=== PATIENT | female | born 1940 | race Caucasian/White ===

== ENCOUNTER 2020-03-10 11:33 | Outpatient (RCR) | payer MEDICARE, SELFPAY ==
[2016-02-23 05:53] VITALS: BMI 30.2
== END 2020-03-10 23:59 ==
LOC: IMMUN 11:33
PROVIDERS: PCP Internal Medicine; Visit Provider Family Medicine
DX: Z23 Encounter for immunization (principal)
CPT/HCPCS: 0011A; 0012A

== ENCOUNTER 2020-05-30 10:34 | Emergency (ER) | payer MEDICARE, SELFPAY ==
[2020-05-30 10:35] VITALS: BP 151/74; PULSE 58; RESP 16; TEMP 36.6; O2SAT 97; BMI 30.2
--- NOTE | 2020-05-30 10:45 | CT_ITS ---
STUDY: CT CERVICAL SPINE WITHOUT CONTRAST REASON FOR EXAM: Female, 79 years old. Head injury due to a fall RADIATION DOSAGE (If Supplied By Facility): CTDIvol = ( 17.49 ) mGy, DLP = ( 343.95 ) mGycm TECHNIQUE: High resolution transaxial imaging was performed without contrast material. Sagittal and coronal images were reconstructed. Individualized dose optimization techniques were used for this CT. COMPARISON: None FINDINGS: Normal craniovertebral junction. Normal anterior atlantoaxial articulation. Normal odontoid process. There is straightening of the normal cervical lordosis. Normal vertebral bodies and posterior osseous elements. C2-3: Facet joint osteoarthritis and hypertrophy worse on the left side. No significant narrowing is seen. C3-4: Facet joint hypertrophy and osteoarthritis worse on the right side. Mild to moderate degree of right neural foraminal stenosis. C4-5: Facet joint osteoarthritis and hypertrophy more prominent on the left side. Marked degree of left neural foraminal stenosis. C5-6: Moderate degree of disc space narrowing. Spondylosis. Uncovertebral arthrosis. Bilateral neural foraminal stenosis worse on the right side. C6-7: Moderate degree of disc space narrowing. Spondylosis. Uncovertebral arthrosis. Mild degree of bilateral neural foraminal stenosis. C7-T1: Normal endplates. Normal disc height and morphology. Normal central canal and intervertebral neuroforamina. Atherosclerotic calcification of the carotid bifurcations. CT/Spine Cervical without Contras IMPRESSION: Multilevel degenerative changes, as described above. Electronically Signed: Harlan Valenzuela MD at 11:41 EDT , Service support ,
--- NOTE | 2020-05-30 10:45 | CT_ITS ---
STUDY: CT FACIAL BONES WITHOUT CONTRAST REASON FOR EXAM: Female, 79 years old. Facial injury following a fall. RADIATION DOSAGE (If Supplied By Facility): CTDIvol = ( 29.38 ) mGy, DLP = ( 525.42 ) mGycm TECHNIQUE: The patient was scanned in a multi detector CT scanner. Sagittal and coronal images were reconstructed. Individualized dose optimization techniques were used for this CT. COMPARISON: None. FINDINGS: Normal soft tissue structures. Normal orbital ibrahim and orbital contents. Normal nasal bones and anterior nasal spine. Normal facial bones. There is no demonstrated fracture. Normal visualized paranasal sinuses. CT/Sinus/Facial Bone IMPRESSION: Normal unenhanced CT of the facial bones. Electronically Signed: Harlan Valenzuela MD at 11:39 EDT , Service support ,
--- NOTE | 2020-05-30 10:45 | CT_ITS ---
STUDY: CT BRAIN WITHOUT CONTRAST REASON FOR EXAM: Female, 79 years old. Head injury. The patient fell down the steps 2 days ago. Left periorbital swelling. RADIATION DOSAGE (If Supplied By Facility): CTDIvol = ( 44.99 ) mGy, DLP = ( 728.62 ) mGycm TECHNIQUE: Transaxial CT imaging of the brain was performed without administration of intravenous contrast material. Individualized dose optimization techniques were used for this CT. COMPARISON: None FINDINGS: Normal soft tissue structures. Normal calvarium. There is mild cerebral atrophy with widening of the extra-axial spaces and ventricular dilatation. There are areas of decreased attenuation within the white matter tracts of the supratentorial brain, consistent with microvascular disease changes. Normal basal ganglia and thalami. Normal brainstem. There is mild cerebellar atrophy. There is no intracranial hemorrhage. There are no findings of an acute ischemic infarction. Normal visualized paranasal sinuses. CT/Brain/Head without Contrast IMPRESSION: Chronic involutional changes of the brain. Electronically Signed: Harlan Valenzuela MD at 11:38 EDT , Service support ,
--- NOTE | 2020-05-30 10:51 | ED.VIS.GEN ---
History of Present Illness Chief Complaint: Head Injury Informant: Patient Onset: Days - 2 Narrative: Patient sent in from ophthalmology office evaluation for fall with head trauma occurring 2 days ago. I spoke with gambling dealer prior to her arrival. Patient went to eye doctor for new glasses and has bruising to left eye. Reports ophthalmology evaluation was normal, he did not dilate the eyes, patient denies any loss of vision or shading of vision. Reports mild headache symptoms no nausea or vomiting. Using Tylenol. Reports mechanical fall while sleeping outside the home however did hit her head on concrete. Denies loss of consciousness. Broke her glasses. No anticoagulation medications. No neck or back pain. No extremity pain, states mild abrasion left knee. Denies chest or abdominal pain. Prior similar symptoms: No Past Medical History - Allergies and Home Meds Allergies/Adverse Reactions: Allergies amitriptyline Allergy (Verified 05/30/20 10:35) Unknown codeine Allergy (Verified 05/30/20 10:35) Chest tightness trazodone Allergy (Verified 05/30/20 10:35) Other HALLUCINATIONS Primary Care Physician: Audrey Lang MD [Primary Care Provider] - Past Medical History: - - Hypertension, fibromyalgia Surgical History: no surgical history Smoking Status: Never smoker - Family History Maternal Family History: Reports: No pertinent history Review of Systems General: Denies: Chills, Fever, Sweats Eyes: Denies: Visual changes - bilaterally, Diplopia ENT: Denies: Rhinorrhea, Sore throat Cardiovascular: Denies: Chest pain, Palpitations Respiratory: Denies: Dyspnea, Cough, Dyspnea on exertion Gastrointestinal: Denies: Abdominal pain, Nausea, Vomiting, Diarrhea, Melena, Hematochezia Genitourinary: Denies: Dysuria, Hematuria, Frequency Musculoskeletal: Denies: Back pain, Extremity Pain Skin: Denies: Rash, Wounds Neurological: Reports: Headache. Denies: Weakness, Numbness Physical Exam Vital Signs/Narrative: Vital Signs Temp Pulse Resp BP Pulse Ox 05/30/20 10:35 97.8 F 58 L 16 151/74 H 97 Inital Vital Signs reviewed: Yes General: Well nourished, Well developed, No Acute Distress, - - GCS 15. Head: Normocephalic, - - No hemotympanum, there is periorbital ecchymosis around left eye, there is no swelling no proptosis or entrapment. No zygomatic tenderness. No septal hematoma. Eyes: Perrl, EOMI ENT: Moist mucous membranes, No rhinorrhea Neck: Supple, Nontender, - - No meningismus. Cardiovascular: Regular rate, Regular rhythm, No murmurs Respiratory: No distress, CTA bilaterally, Chest nontender Abdomen: Soft, Nontender, Nondistended, Normal bowel sounds Back: Nontender, Normal Inspection Extremities: Nontender, No edema Skin: No rash, - - Mild left knee abrasion, no bony tenderness. Neurological: Alert, Oriented x3, Cranial nerves II-XII grossly intact, Normal Strength, Normal Sensation Psychological: Normal affect, Normal Mood Diagnostic/Tx/Re-eval Clinical Impression(s) from Imaging Studies Brain CT 05/30/20 10:45 IMPRESSION: Chronic involutional changes of the brain. Electronically Signed: Harlan Valenzuela MD at 11:38 EDT , Service support , Cervical Spine CT 05/30/20 10:45 IMPRESSION: Multilevel degenerative changes, as described above. Electronically Signed: Harlan Valenzuela MD at 11:41 EDT , Service support , Facial/Sinus 05/30/20 10:45 IMPRESSION: Normal unenhanced CT of the facial bones. Electronically Signed: Harlan Valenzuela MD at 11:39 EDT , Service support , - Medical Decision Making Patient mechanical fall image studies head neck and face with no acute process. Knee abrasion with no bony tenderness she is ambulating. Discussed concussions with precautions. Should continue Tylenol. She will follow-up with her PCP. All questions were answered. ED Disposition - Plan for ED Patient: Disposition: Home or Assisted Living Diagnosis: Closed head injury, Periorbital contusion of left eye, Abrasion of left knee Instructions: ED Concussion, ED Eye Contusion Referrals: Audrey Lang MD [Primary Care Provider] - 5-7 Days
[2020-05-30 12:21] VITALS: BP 172/58; PULSE 59; RESP 16; O2SAT 98
== END 2020-05-30 12:25 | disposition home or self-care (01) ==
PROVIDERS: Emergency Provider Emergency Medicine; PCP Internal Medicine
DX: S05.02XA Injury of conjunctiva and corneal abrasion without foreign body, left eye, initial encounter (principal); S09.90XA Unspecified injury of head, initial encounter; S80.212A Abrasion, left knee, initial encounter; W10.9XXA Fall (on) (from) unspecified stairs and steps, initial encounter; I10 Essential (primary) hypertension; M79.7 Fibromyalgia
CPT/HCPCS: 70450; 70486; 72125; 99282

== ENCOUNTER 2024-01-17 18:45 | Outpatient (CLI) | payer MEDICARE, SELFPAY ==
[2024-01-17] VITALS (9 sets, daily range): BP systolic 153–194; BP diastolic 58–90; PULSE 64–114; RESP 17–21; TEMP 36.1–36.7; O2SAT 97–100; BMI 25.5
--- NOTE | 2024-01-17 20:33 | RAD_ITS ---
INDICATION: Hypertension EXAMINATION/TECHNIQUE: X-RAY - XR Chest 1 View COMPARISON: August 23, 2013 FINDINGS: LINES/DEVICES: None. LUNGS: No consolidation, edema or effusion. No pneumothorax. MEDIASTINUM AND CARDIOVASCULAR STRUCTURES: Cardiac silhouette not enlarged. Central airways and mediastinal contour are unremarkable. BONES AND SOFT TISSUES: Degenerative vertebral changes. RAD/Chest 1 View (Portable) IMPRESSION: No radiographic evidence of acute cardiopulmonary disease. Electronically Signed: Tien Burger DO at 22:34 EST ,
--- NOTE | 2024-01-17 20:33 | CT_ITS ---
STUDY: CT BRAIN WITHOUT CONTRAST REASON FOR EXAM: Female, 83 years old. Headache, severe hypertension RADIATION DOSAGE (If Supplied By Facility): CTDIvol = ( 44.99 ) mGy, DLP = ( 812.98 ) mGycm TECHNIQUE: Transaxial CT imaging of the brain was performed without administration of intravenous contrast material. Individualized dose optimization techniques were used for this CT. COMPARISON: No relevant priors. FINDINGS: Normal soft tissue structures. Normal calvarium. Prominent ventricles and extra-axial spaces with mild atrophy. Bilateral white matter microangiopathic ischemic changes of the cerebral hemispheres. Normal basal ganglia and thalami. Normal brainstem. Normal cerebellum. There is no intracranial hemorrhage. There are no findings of an acute ischemic infarction. Normal visualized paranasal sinuses. CT/Brain/Head without Contrast IMPRESSION: Age-related changes of the brain. Electronically Signed: Tien Burger DO at 22:00 EST ,
--- NOTE | 2024-01-17 20:33 | EKG12_ITS ---
Test Reason : Blood Pressure : */* mmHG Vent. Rate : 89 BPM Atrial Rate : 89 BPM P-R Int : 154 ms QRS Dur : 88 ms QT Int : 366 ms P-R-T Axes : 33 -23 74 degrees QTcB Int : 445 ms Normal sinus rhythm Nonspecific ST and T wave abnormality Abnormal ECG Confirmed by Herve Good ([id number]), newspaper photo editor YASMIN VO ([id number]) on 01/19/2024 7:02:16 AM Referred By: Confirmed By: Herve Good
[2024-01-17] MEDS: hydrALAZINE 20 MG/ML Vial IV (20:41)
[2024-01-17 20:43] LABS: Absolute Lymphocyte Count 1.69 X10^3/uL (0.83-4.51); Absolute Neutrophil Count 5.9 X10^3/uL (2.0-7.7); Basophil# 0.05 X10^3/uL; Basophil% 0.6 % (0-1); Eosinophil# 0.09 X10^3/uL; Eosinophils% 1.1 % (0-5); Hematocrit 43.3 % (37-47); Hemoglobin 14.3 g/dL (12.0-15.0); Lymphocyte # 1.69 X10^3/ul (0.83-4.51); Lymphocyte % 20.2 % (19-41); Mean Corpuscular Hgb 30.6 pg (27.0-32.0); Mean Corpuscular Volume 92.7 fL (81-99); Mean Platelet Vol. 12.1 fl (6.2-12.0); Monocyte# 0.58 X10^3/uL; Monocyte% 6.9 % (0-10); NRBC Flagged by Analyzer 0 % (0-5); Neutrophil # 5.91 X10^3/uL (2.7-7.7); Neutrophil % 70.8 % (47-70); Platelet Count 165 K/mm3 (150-450); RBC Distribution Width CV 12.8 % (11.6-14.6); RBC Distribution Width SD 43.8 fl (35.1-43.9); Red Blood Count 4.67 M/mm3 (4.2-5.4); White Blood Count 8.4 K/mm3 (4.4-11.0)
--- NOTE | 2024-01-17 20:49 | EX.ED.DYSGE1 ---
HPI History of Present Illness Chief Complaint: Hypertension Narrative Narrative: Chief complaint and HPI: 83-year-old female with history of hypertension presents for evaluation of hypertension. Patient states for the past month she has been having issues controlling her hypertension. She states that her current regiment is metoprolol 50 mg daily and then 2.5 mg amlodipine as needed if SBP greater than 150. Patient states for the past 2 days she has been having intermittent headaches. She states that her headache reoccurred today so she checked her blood pressure. She states it was high. She states that she took 2.5 mg amlodipine. She states that it remained high so she took another dose without improvement. She states she called her PCP call line and they told her to present to the emergency department. Patient currently states that her headache is minimal. She states that it is improved with Tylenol. She denies any fever, chills, vision changes, numbness/tingling, weakness, neurological deficit, chest pain, shortness of breath, abdominal pain, nausea, vomiting. Review of systems: See HPI Medications: As listed on the chart Allergies: As listed on the chart PFSH: Per chart Vital signs: As listed on the chart. Reviewed. Physical exam: Gen: A&O x3, NAD Head: Normocephalic, atraumatic Eyes: No sclera icterus, conjunctiva clear, PERRL, EOMI ENT: Moist mucous membranes Neck: Trachea midline, No JVD CV: RRR, no murmurs, no peripheral edema Resp: Lungs CTA BL, no w/r/c GI: Abd soft, non-distended, non-tender, no r/r/g Musc: Full ROM, no deformity Skin: Warm, dry Neuro: Alert, oriented, grossly intact, sensation intact Psych: Cooperative, appropriate mood and affect [facility] Medications ?Medication ?Instructions ?Recorded ?Last Taken ?Type Omeprazole [Prilosec] 40 mg PO DAILY 08/23/13 02/23/16 05:00 History duloxetine 60 mg capsule,delayed 60 mg PO DAILY 08/23/13 08/23/13 08:00 History release gabapentin 300 mg capsule 300 mg PO TIDCM 08/23/13 08/23/13 08:00 History estradiol 0.01% (0.1 mg/gram) 1 applic vaginal 05/30/20 Unknown History vaginal cream metoprolol succinate 50 mg 50 mg PO DAILY 05/30/20 Unknown History tablet,extended release 24 hr amlodipine 2.5 mg tablet 2.5 mg PO DAILY 01/17/24 Unknown History Allergy/AdvReac Type Severity Reaction Status Date / Time amitriptyline Allergy Unknown Verified 01/17/24 18:45 codeine Allergy Chest Verified 01/17/24 18:45 tightness trazodone Allergy Other Verified 01/17/24 18:45 Social History Smoking Status: Never smoker EXAM Physical Exam Const Vital Signs: 01/17/24 18:46 01/17/24 19:48 01/17/24 19:59 Temperature 96.9 F L Temperature Source Temporal Pulse Rate 67 65 Respiratory Rate 18 18 Respiratory Effort Normal Non-Labored Respiratory Pattern Normal Blood Pressure 178/63 H 194/90 H Blood Pressure Mean 101 124 Blood Pressure Source Blood Pressure Position Blood Pressure Location Pulse Ox 100 Oxygen Delivery Method Room Air Room Air 01/17/24 20:42 01/17/24 22:00 01/17/24 22:31 Temperature Temperature Source Pulse Rate 75 97 64 Respiratory Rate 18 18 18 Respiratory Effort Respiratory Pattern Blood Pressure 191/58 H 153/64 H 155/70 H Blood Pressure Mean 102 93 98 Blood Pressure Source Blood Pressure Position Blood Pressure Location Pulse Ox 97 97 98 Oxygen Delivery Method Room Air Room Air Room Air 01/17/24 22:53 01/17/24 22:54 Temperature 98.1 F Temperature Source Pulse Rate 114 H Respiratory Rate 21 H Respiratory Effort Respiratory Pattern Blood Pressure 173/80 H 173/80 H Blood Pressure Mean 111 111 Blood Pressure Source Monitor Blood Pressure Position Semi-Fowlers Blood Pressure Location Right Arm Pulse Ox 100 Oxygen Delivery Method MDM MDM MDM Narrative Medical decision making narrative: 83-year-old female with history of hypertension presents for evaluation of hypertension. Associated symptom is intermittent headaches. Patient is currently hypertensive on my evaluation with SBP in the 190s. Differential diagnosis includes but is not limited to hypertensive emergency, hypertension urgency, intracranial bleed, ACS. IV hydralazine ordered for blood pressure. Laboratory workup ordered including CT head. EKG was interpreted by me/EM physician. EKG shows normal sinus rhythm with nonspecific ST wave abnormalities. Heart rate 89. Chest x-ray was interpreted by me, EM physician. No pneumonia, cardiomegaly, pneumothorax, effusion. CBC without leukocytosis or anemia. BMP shows renal insufficiency with a creatinine of 1.31. Patient's creatinine in 2017 was normal. Troponin unremarkable. BNP unremarkable. Shortly after returning from CT scan. Patient began complaining of midsternal chest pain. Her blood pressure improved to SBP's in the 150s. She had a hard time describing the chest pain. She states it was not sharp. Does not radiate down the arm, into the jaw, through the back. Aspirin ordered. Will drawl troponin while actively having chest pain. Repeat EKG was obtained. Repeat EKG shows sinus tachycardia with heart rate of 101. Patient has worsening ST changes. She is developing some elevation in aVR as well as depressions in the anterolateral leads. CT head without any acute intracranial abnormalities. Repeat troponin is unremarkable and flat. On reevaluation, patient states her chest pain has improved but is still present. Repeat EKG obtained. Repeat EKG shows normal sinus rhythm with a heart rate of 99 however patient has concerns for STEMI. Again she has worsening ST depressions in the anterior lateral leads. She has increased elevation in aVR. With these new EKG changes Dr. Wise with interventional cardiology was immediately contacted and patient was discussed. He reviewed with the EKGs. He agrees with concern for STEMI. STEMI alert initiated. IV heparin bolus given. Cardiology recommended nitro drip and this was ordered. Patient will be transferred to the cardiac Biometric Fingerprinting Technician. Patient was updated of all of her findings and the plan. She confirmed understanding. Patient was discussed with the hospitalist who accepted admission. 45 minutes of critical care time utilized in managing the patient. This is due to high probability of and deterioration of the patient based on the patient's condition and excludes any separately billable procedures. Impression: 1. STEMI 2. Hypertensive emergency 3. Renal insufficiency Lab Data Labs: Laboratory Results - last 24 hr 01/17/24 01/17/24 20:09 21:33 WBC 8.4 RBC 4.67 Hgb 14.3 Hct 43.3 MCV 92.7 MCH 30.6 MCHC 33.0 RDW Std Deviation 43.8 RDW Coeff of Marco Antonio 12.8 Plt Count 165 MPV 12.1 H Immature Gran % (Auto) 0.400 Neut % (Auto) 70.8 H Lymph % (Auto) 20.2 [place] % (Auto) 6.9 Eos % (Auto) 1.1 Baso % (Auto) 0.6 Absolute Neuts (auto) 5.9 Absolute Lymphs (auto) 1.69 Nucleated RBC % 0 Sodium 136 Potassium 4.5 Chloride 106 Carbon Dioxide 24.0 Anion Gap 5 BUN 23 H Creatinine 1.31 H Estim Creat Clear Calc 28.45 Est GFR (MDRD) Af Amer 50 L Est GFR (MDRD) Non-Af 41 L BUN/Creatinine Ratio 17.6 Glucose 92 Calcium 9.6 Troponin I High Sens 6 8 B-Natriuretic Peptide 87.2 Radiography Diagnostic Testing: Clinical Impression(s) from Imaging Studies Brain CT 01/17/24 20:33 IMPRESSION: Age-related changes of the brain. Electronically Signed: Tien Burger DO at 22:00 EST , Chest X-Ray 01/17/24 20:33 IMPRESSION: No radiographic evidence of acute cardiopulmonary disease. Electronically Signed: Tien Burger DO at 22:34 EST , Discharge Plan Triage Chief Complaint: Hypertension ED Provider: Elmer Lujan Dx/Rx/DC Orders Primary Care Provider: Audrey Lang
[2024-01-17 21:03] LABS: BNP,B-Type NATRIURETIC PEPTIDE 87.2 pg/mL (0-100)
[2024-01-17 21:08] LABS: Anion Gap 5 (5-15); BUN 23 mg/dL (7-18); BUN/Creat Ratio 17.6 RATIO (10-20); Calcium,Total 9.6 mg/dL (8.5-10.1); Chloride 106 mmol/L (98-107); Creatinine, Serum 1.31 mg/dL (0.55-1.02); EST Glomerular Filtration Rate 41 mL/min (>60); Est Glom Filt Rate - Afr Amer 50 mL/min (>60); Estimated Creatinine Clearance 28.45 ml/min; Glucose 92 mg/dL (74-106); Potassium 4.5 mmol/L (3.5-5.1); Sodium Level 136 mmol/L (136-145); Troponin-I HS 6 pg/mL (3.0-54.0)
--- NOTE | 2024-01-17 21:33 | EKG12_ITS ---
Test Reason : REPEAT Blood Pressure : */* mmHG Vent. Rate : 101 BPM Atrial Rate : 101 BPM P-R Int : 150 ms QRS Dur : 92 ms QT Int : 362 ms P-R-T Axes : 50 -26 136 degrees QTcB Int : 469 ms Sinus tachycardia Marked ST abnormality, possible lateral subendocardial injury Abnormal ECG Confirmed by Herve Good ([id number]), loan expeditor YASMIN VO ([id number]) on 01/19/2024 7:02:30 AM Referred By: Confirmed By: Herve Good
[2024-01-17] MEDS: Aspirin 81 MG TAB.CHEW 324 MG PO (21:36)
[2024-01-17 21:59] LABS: Troponin-I HS 8 pg/mL (3.0-54.0)
--- NOTE | 2024-01-17 22:29 | EKG12_ITS ---
Test Reason : REPEAT Blood Pressure : */* mmHG Vent. Rate : 99 BPM Atrial Rate : 99 BPM P-R Int : 168 ms QRS Dur : 94 ms QT Int : 366 ms P-R-T Axes : 46 -28 144 degrees QTcB Int : 469 ms Critical Test Result: STEMI Normal sinus rhythm ST/T changes consistent with anterior lateral ischemia Abnormal ECG Confirmed by Herve Good ([id number]), fan mail editor LORE MANTILLA ([id number]) on 01/19/2024 9:06:56 AM Referred By: Confirmed By: Herve Good
[2024-01-17] MEDS: Heparin Injection (Vial) 5,000 UNIT/ML VIAL 5000 UNIT IV (22:48)
[2024-01-17] MEDS: Nitroglycerin Infusion 250 ML 3 MG CONT INF (22:54)
--- NOTE | 2024-01-17 23:50 | NURSING ---
Heparin gtt running @ 800 un/hr upon arrival from the aquatic laborer. Spoke with Dr. Wise on the phone and he would like the heparin to run at 600 un/hr continuous, no titration. Nitro gtt running @ 5 mcg/min.
[2024-01-18] VITALS (9 sets, daily range): BP systolic 139–168; BP diastolic 59–69; PULSE 100–123; RESP 29–39; O2SAT 100; BMI 25.2
--- NOTE | 2024-01-18 00:14 | PCIREPORT_ITS ---
PCI Cardiac Cath Report PCI Report: Cardiac cath report. Procedure performed; 1. Access from the right common femoral artery with placement of 6 Thai sheath 2. Selective left coronary angiography 3. Selective right coronary angiography 4. Suture applied to right common femoral artery sheath. Preprocedure diagnosis 83-year-old patient brought into the ER Patient presented to the ED for hypertension control While in the ER she started to complain of symptoms of chest pain EKG was obtained which showed diffuse ST depression noted with some ST elevation noted in the aVR. She had 2 sets of cardiac biomarker which were negative Review of the current evaluation in the hospital patient was given heparin Brilinta aspirin. And was brought into the [facility] for further Had history of hypertension she was brought in for hypertension evaluation. She did mention that for the last few months since she has been having issues controlling her hypertension while in the hospital ER she complained of retrosternal chest pain patient was given aspirin which relieved her symptoms still having persistent discomfort in the chest she had a CT head which is negative Coronary angiography; 1. Left main is calcified, bifurcating into LAD and left circumflex. Angiographically the left main has no significant atherosclerosis 2. Left anterior descending had diffuse atherosclerosis of around 60-70% involving the mid LAD LAD has a ROBBY-3 flow It has a large 33rd diagonal branch The first diagonal branch has diffuse atherosclerosis of around 50-60%. 3. The left circumflex is calcified proximally. Very complex lesion of the left circumflex the OM1,is a large vessel with [place] btotal 99% stenosis. The proximal part of the circumflex artery also has at least 99% stenosis. The second obtuse marginal branch is occluded/OM 2 There is left to right collaterals. 4. RCA is small with diffuse 99% stenosis. Conclusion recommendation. This is a complex coronary anatomy, multivessel CAD with tortuous proximal circumflex with complex lesion involving the proximal circumflex as well as OM1 and OM 2 branches. Angiographically also possible the distal left circumflex is occluded. And there is a diffuse atherosclerosis of the LAD as well as a RCA which is not large. Based on the clinical presentation patient remains stable after she had the angiogram suture applied to right common femoral artery sheath We continue on heparin as well will continue on nitroglycerin and her blood pressure was significant elevated in the [facility] around 170 mmHg. She still having mild symptoms of chest pain. I discussed in detail with the family including her son and . And patient to be transferred to a tertiary facility with a backup CTS team As she has a complex lesion involving a large dominant circumflex artery. With probable needing a high risk PCI and intervention to the circumflex as well as to OM1 and OM 2. And possible elective evaluation of the LAD at some point. RCA is scan of diffuse subtotal. Also in the ER patient was given Brilinta heparin and aspirin. Will continue on heparin drip as well as nitroglycerin. And will admit the patient to the intensive care unit with the plan of transfer to a tertiary facility No complication in the [facility] patient remains stable clinically. Billy Wise MD,FACC,[facility] mud engineer
--- NOTE | 2024-01-18 00:16 | HP.PCM.HOS_ITS ---
HPI - General General Date of Admission: 01/17/24 Date of Service: 01/18/24 Chief Complaint: STEMI. HPI Narrative MATILDA RUDD, is a 83 F with a past medical history of essential hypertension; on amlodipine and metoprolol, neuropathy; on gabapentin, GERD; on omeprazole, depression; on duloxetine, history of fibromyalgia, listed allergy to amitriptyline (?), listed allergy to codeine (chest tightness), listed allergy to trazodone (?), and osteoarthritis who presents to [facility] ER initially complaining of uncontrolled hypertension and shortness of breath. She informed the ER physician that she had had been having difficulty controlling her blood pressure for the past month in spite of taking her metoprolol 50 mg daily and amlodipine 2.5 mg daily with systolic blood pressure consistently greater than 150 mmHg. Then earlier in the day prior to admission she took an extra amlodipine dose without improvement so she called her PCP who advised her to come to the ER for further evaluation and treatment. She also admitted to a mild headache that improved with Tylenol and she initially denied fever, chills, nausea, vomiting, diaphoresis, chest pain or shortness of breath. In the ER she was noted to 2 negative troponins and initially nonacute EKG but then she was noted to have a blood pressure spike into the 190 mmHg range consistent with hypertensive emergency followed by EKG changes consistent with STEMI with ST depressions in the anterior leads and increased elevation in aVR with patient immediately started on IV heparin after she was treated with aspirin, Brilinta and statin with patient then taken to the cardiology lab and found to have severe triple-vessel disease with 99% occlusions of both OM1 and OM 2 with a notably small RCA and a diffuse 99% stenosis indicating need for CABG with patient developing ventricular fibrillation transiently when catheter was placed into the heart. This was quickly treated and arrangements were made for her to go to a tertiary care center at [facility] by natural gas technician whose help is greatly appreciated. The patient was briefly moved to the ICU where she was started on IV nitroglycerin with an additional dose of IV morphine given to control her ongoing chest pain. This is a same-day admission and discharge. PFS Home Medications ?Medication ?Instructions ?Recorded ?Last Taken ?Type Omeprazole [Prilosec] 40 mg PO DAILY 08/23/13 02/23/16 05:00 History duloxetine 60 mg capsule,delayed 60 mg PO DAILY 08/23/13 08/23/13 08:00 History release gabapentin 300 mg capsule 300 mg PO TIDCM 08/23/13 08/23/13 08:00 History estradiol 0.01% (0.1 mg/gram) 1 applic vaginal 05/30/20 Unknown History vaginal cream metoprolol succinate 50 mg 50 mg PO DAILY 05/30/20 Unknown History tablet,extended release 24 hr amlodipine 2.5 mg tablet 2.5 mg PO DAILY 01/17/24 Unknown History Allergy/AdvReac Type Severity Reaction Status Date / Time amitriptyline Allergy Unknown Verified 01/17/24 18:45 codeine Allergy Chest Verified 01/17/24 18:45 tightness trazodone Allergy Other Verified 01/17/24 18:45 Social History Smoking Status: Never smoker ROS ROS Narrative Review of Systems: Constitutional: Patient denies fever or chills. Eyes: Patient denies changes in vision or discharge from eyes. ENT: Patient denies runny nose, sore throat or ear pain. Resp: Patient denies shortness of breath or cough. CV: Patient admits to chest pain made worse with exertion but not relieved along with elevated blood pressure over the past month. GI: Patient denies abdominal pain, nausea, vomiting or diarrhea. : Patient denies dysuria or hematuria. MSK: Patient denies arthralgias or myalgias. Skin: Patient denies rash, abscess or jaundice. Psych: Patient denies symptoms of uncontrolled depression or anxiety. Neuro: Patient admits to intermittent headaches but she denies paresthesias or focal neurologic deficits. Allergy: Patient denies lip swelling, tongue swelling or urticaria. Hematology: Patient denies easy bleeding or easy bruisability. Endocrinology: Patient denies polyuria, polydipsia or polyphagia. 14 point review of systems otherwise negative except for positives noted above in HPI. Vital Signs Vital Signs Vital Signs: 01/17/24 18:46 01/17/24 19:48 01/17/24 19:59 Temperature 96.9 F L Temperature Source Temporal Pulse Rate 67 65 Respiratory Rate 18 18 Respiratory Effort Normal Non-Labored Respiratory Pattern Normal Blood Pressure 178/63 H 194/90 H Blood Pressure Mean 101 124 Blood Pressure Source Blood Pressure Position Blood Pressure Location Pulse Ox 100 Oxygen Delivery Method Room Air Room Air Oxygen Flow Rate (L/min) 01/17/24 20:42 01/17/24 22:00 01/17/24 22:31 Temperature Temperature Source Pulse Rate 75 97 64 Respiratory Rate 18 18 18 Respiratory Effort Respiratory Pattern Blood Pressure 191/58 H 153/64 H 155/70 H Blood Pressure Mean 102 93 98 Blood Pressure Source Blood Pressure Position Blood Pressure Location Pulse Ox 97 97 98 Oxygen Delivery Method Room Air Room Air Room Air Oxygen Flow Rate (L/min) 01/17/24 22:42 01/17/24 22:53 01/17/24 22:54 Temperature 98.1 F Temperature Source Pulse Rate 114 H Respiratory Rate 17 21 H Respiratory Effort Respiratory Pattern Blood Pressure 173/80 H 173/80 H Blood Pressure Mean 111 111 Blood Pressure Source Monitor Blood Pressure Position Semi-Fowlers Blood Pressure Location Right Arm Pulse Ox 100 Oxygen Delivery Method Oxygen Flow Rate (L/min) 01/17/24 23:09 Temperature Temperature Source Pulse Rate 107 H Respiratory Rate 18 Respiratory Effort Respiratory Pattern Blood Pressure 177/78 H Blood Pressure Mean 111 Blood Pressure Source Blood Pressure Position Blood Pressure Location Pulse Ox 99 Oxygen Delivery Method Nasal Cannula Oxygen Flow Rate (L/min) 2 Weight Weight: 139 lb 8.842 oz Body Mass Index (BMI) 25.5 Physical Exam Const alert, oriented x3, no apparent distress and average body habitus Constitutional Narrative: Patient appears anxious with mildly labored breathing. General Appearance: cooperative HEENT normocephalic, head/scalp atraumatic, hearing grossly normal bilaterally and moist oral mucous membranes Eyes PERRL and EOMs intact bilaterally Neck no lymphadenopathy and supple Resp no retractions, no use of accessory muscles and clear to auscultation bilaterally Resp Narrative: Patient noted to have mildly labored breathing. Cardio regular rate and regular rhythm GI normal to inspection, nondistended, normoactive bowel sounds, soft to palpation, non-tender and non-distended Extremity normal to inspection, full ROM and no clubbing, cyanosis or edema Skin Skin Narrative: Patient has no evidence of rash, abscess or jaundice. Neuro oriented x3, CN's II-XII intact bilaterally, moves all extremities and no focal motor deficits Sensorium / Orientation: awake, alert, oriented to person, oriented to place and oriented to time Speech: speech normal Psych Mood & Affect: anxious Results Medical Records Data Attestation: I reviewed the patient's medical records Lab / Micro Data Attestation: I reviewed the patient's lab results. 01/17/24 20:09 01/17/24 20:09 Labs: Laboratory Results - last 24 hr 01/17/24 20:09: WBC 8.4, RBC 4.67, Hgb 14.3, Hct 43.3, MCV 92.7, MCH 30.6, MCHC 33.0, RDW Std Deviation 43.8, RDW Coeff of Marco Antonio 12.8, Plt Count 165, MPV 12.1 H, Immature Gran % (Auto) 0.400, Neut % (Auto) 70.8 H, Lymph % (Auto) 20.2, [place] % (Auto) 6.9, Eos % (Auto) 1.1, Baso % (Auto) 0.6, Absolute Neuts (auto) 5.9, Absolute Lymphs (auto) 1.69, Nucleated RBC % 0, Sodium 136, Potassium 4.5, Chloride 106, Carbon Dioxide 24.0, Anion Gap 5, BUN 23 H, Creatinine 1.31 H, Estim Creat Clear Calc 28.45, Est GFR (MDRD) Af Amer 50 L, Est GFR (MDRD) Non-Af 41 L, BUN/Creatinine Ratio 17.6, Glucose 92, Calcium 9.6, Troponin I High Sens 6, B-Natriuretic Peptide 87.2 01/17/24 21:33: Troponin I High Sens 8 Imaging Radiology Impression Brain CT 01/17/24 20:33 IMPRESSION: Age-related changes of the brain. Electronically Signed: Tien Burger DO at 22:00 EST , Chest X-Ray 01/17/24 20:33 IMPRESSION: No radiographic evidence of acute cardiopulmonary disease. Electronically Signed: Tien Burger DO at 22:34 EST , Assessment & Plan Assessment/Plan (1) STEMI (ST elevation myocardial infarction): QUALIFIERS: Involved coronary artery: unspecified coronary artery Qualified Code(s): I21.3 - ST elevation (STEMI) myocardial infarction of unspecified site (2) Hypertensive emergency: PLAN: Plan 1. STEMI with ST depressions in the anterior leads and increased elevation in aVR with patient immediately started on IV heparin after she was treated with aspirin, Brilinta and statin with patient then taken to the cardiology lab and found to have severe triple-vessel disease with 99% occlusions of both OM1 and OM 2 with a notably small RCA and a diffuse 99% stenosis indicating need for CABG with patient developing ventricular fibrillation transiently when catheter was placed into the heart - Patient emergently transferred to [facility] for CABG evaluation. 2. Hypertensive emergency immediately preceding #1 with blood pressure spiking into the 190 mm systolic range preceded by chronic uncontrolled hypertension for the past month precipitating ER evaluation - Patient was initially treated with IV hydralazine and then converted to IV nitroglycerin. 3. Neuropathy; on gabapentin - Patient will be restarted on this agent when appropriate and [facility]. 4. GERD; on omeprazole - Resume PPI. 5. Depression; on duloxetine - Continue duloxetine as before. 6. History of fibromyalgia - Noted. 7. Listed allergy to amitriptyline (?) - Noted. 8. Listed allergy to codeine (chest tightness) - Noted. 9. Listed allergy to trazodone (?) - Noted. 10. Osteoarthritis - Stable. 11. DVT prophylaxis - Patient was initiated on IV Heparin for #1. Total time: Approximately (but not less than) 75 minutes. Charges/Coding Visit Charges OBSV E&M: 54545 Observ/hosp same date L2
--- NOTE | 2024-01-18 00:29 | PCM.CONS.C ---
Assessment & Plan Assessment/Plan (1) Fibromyalgia: (2) HTN (hypertension): (3) Acute coronary syndrome: (4) Abnormal EKG: PLAN: Cardiac care plan recommendations; 83-year-old patient brought in by the family to the ED at [facility] With a history of hypertension she was brought in for hypertension evaluation. Patient did mention that for the past month she has been having issues controlling her blood pressure. And she was on treatment with a beta-janay metoprolol as well as amlodipine. And still her systolic blood pressure was greater than 150. And she started to complain of intermittent headache CT head was obtained which showed no significant abnormality mild chronic ischemic change. And while she was in the ED she started to complain of symptoms of chest pain An EKG was obtained which showed significantly abnormal ST depression diffuse Also noted ST elevation in the aVR. She had 2 sets of cardiac markers which were negative I reviewed all the current lab evaluation Her serum creatinine was mildly elevated 1.3 Cardiac care plan; Based on her clinical presentation I took the patient to the [facility] for further evaluation Her radial access was difficult and then we went from the right common femoral artery obtain an access and placed 6 Spanish sheath and then we will proceed with the diagnostic catheter and we noted the patient had very complex coronary lesion involving the left circumflex artery proximally around subtotal 99 tortuous And the Pharis large obtuse marginal had a subtotal 99% The OM 2 is occluded In the distal circumflex artery atherosclerosis distally with possible occluded distal circumflex There is [id number] collateral The left main is calcified however angiographically there is no significant atherosclerosis involving the left main The LAD had diffuse atherosclerosis of around 60-70 In the Pharis subdiagonal branch had a similar lesion of around 50?60 with diffuse atherosclerosis RCA small and had a subtotal 99% proximally. Based on her clinical presentation patient deemed to be a very high risk with the requirement for a high risk PCI. She was given heparin Brilinta and aspirin in the ER will continue heparin drip as well as nitroglycerin drip. Her blood pressure was stable she does not require balloon pump at this point because she had stable blood pressure and symptoms of chest pain is controlled with nitroglycerin. I discussed in detail the cardiac care plan with the team here as well as with her family including her son and her as well. And patient will be transferred to tertiary facility to evaluate and assess for high risk PCI. She will be admitted in the intensive care unit Also noted patient developed V-fib in the [facility] [employer] requiring to be shocked 3 times to maintain sinus rhythm and she was given amiodarone 150 mg IV in the [facility]. Patient started on nitroglycerin IV she was given aspirin and she was given amiodarone, Brilinta in the ER. Suture applied to right common femoral artery sheath. Also started on atorvastatin. Nitroglycerin drip. Billy Wise MD,[facility] sales consultant insurance HPI Consult Data Date of Consult: 03/12/24 HPI Narrative Reason for Consultation: Acute coronary syndrome/diffuse ST depression with chest pain HPI Narrative: MATILDA RUDD, is a 83 F who presents [facility] Medical History History of left heart catheterization STEMI (ST elevation myocardial infarction) Acute coronary syndrome Fibromyalgia HTN (hypertension) Home Medications ?Medication ?Instructions ?Recorded ?Last Taken ?Type Omeprazole [Prilosec] 40 mg PO DAILY 08/23/13 02/23/16 05:00 History duloxetine 60 mg capsule,delayed 60 mg PO DAILY 08/23/13 08/23/13 08:00 History release metoprolol succinate 50 mg 50 mg PO DAILY 05/30/20 Unknown History tablet,extended release 24 hr aspirin 81 mg tablet,delayed 81 mg PO DAILY 01/24/24 Unknown History release clopidogrel 75 mg tablet 75 mg PO DAILY 01/24/24 Unknown History dorzolamide 2 % eye drops 1 drp ophthalmic (eye) TID 01/24/24 Unknown History rosuvastatin 20 mg tablet 20 mg PO QHS 01/24/24 Unknown History amlodipine 10 mg tablet 10 mg PO QDAY #30 tabs 02/20/24 Unknown Rx gabapentin 300 mg capsule 600 mg PO TIDCM 02/20/24 Unknown History isosorbide mononitrate 30 mg 30 mg PO QDAY 02/20/24 Unknown History tablet,extended release 24 hr losartan 50 mg tablet 50 mg PO QDAY 02/20/24 Unknown History Allergy/AdvReac Type Severity Reaction Status Date / Time amitriptyline Allergy Unknown Verified 02/20/24 10:56 codeine Allergy Chest Verified 02/20/24 10:56 tightness trazodone Allergy Other Verified 02/20/24 10:56 Family History Father Hypertension Hx of CABG Surgical History History of cholecystectomy History of coronary artery stent placement Social History Smoking Status: Never smoker alcohol intake: never substance use type: does not use caffeine: No Physical Exam Cardio Cardio Narrative: Patient seen and evaluated in the ER Complaining of symptoms of chest pain Evidently she came due to uncontrolled hypertension and she started to complain of chest pain while she is in the ER Cardiac evaluation she had hypertensive urgency Card exam S1-S2 is regular Chest exam clear auscultation bilateral. Patient alert orientated and she is still complaining of symptoms of chest pain as well as back pain Pedal pulses palpable Risk Stratification Risk Stratification Applicable: No Objective Data Vital Signs: Vital Signs Temp Pulse Resp BP Pulse Ox O2 Del Method O2 Flow Rate 98.1 F 107 H 18 177/78 H 99 Nasal Cannula 2 01/17/24 22:53 01/17/24 23:09 01/17/24 23:09 01/17/24 23:09 01/17/24 23:09 01/17/24 23:09 01/17/24 23:09 Oxygen Flow Rate (L/min) 2 Oxygen Delivery Method Nasal Cannula Weight: 139 lb 8.842 oz Body Mass Index (BMI) 25.5 Lab / Micro Data 01/17/24 20:09 01/17/24 20:09 Labs: Laboratory Results - last 24 hr 01/17/24 20:09: WBC 8.4, RBC 4.67, Hgb 14.3, Hct 43.3, MCV 92.7, MCH 30.6, MCHC 33.0, RDW Std Deviation 43.8, RDW Coeff of Marco Antonio 12.8, Plt Count 165, MPV 12.1 H, Immature Gran % (Auto) 0.400, Neut % (Auto) 70.8 H, Lymph % (Auto) 20.2, [place] % (Auto) 6.9, Eos % (Auto) 1.1, Baso % (Auto) 0.6, Absolute Neuts (auto) 5.9, Absolute Lymphs (auto) 1.69, Nucleated RBC % 0, Sodium 136, Potassium 4.5, Chloride 106, Carbon Dioxide 24.0, Anion Gap 5, BUN 23 H, Creatinine 1.31 H, Estim Creat Clear Calc 28.45, Est GFR (MDRD) Af Amer 50 L, Est GFR (MDRD) Non-Af 41 L, BUN/Creatinine Ratio 17.6, Glucose 92, Calcium 9.6, Troponin I High Sens 6, B-Natriuretic Peptide 87.2 01/17/24 21:33: Troponin I High Sens 8 Cardiology Labs/Tests 01/17/24 20:09: WBC 8.4, RBC 4.67, Hgb 14.3, Hct 43.3, MCV 92.7, MCH 30.6, MCHC 33.0, Plt Count 165, MPV 12.1 H, Immature Gran % (Auto) 0.400, Neut % (Auto) 70.8 H, Lymph % (Auto) 20.2, [place] % (Auto) 6.9, Eos % (Auto) 1.1, Baso % (Auto) 0.6, Absolute Neuts (auto) 5.9, Nucleated RBC % 0, Sodium 136, Potassium 4.5, Chloride 106, Carbon Dioxide 24.0, Anion Gap 5, BUN 23 H, Creatinine 1.31 H, Est GFR (MDRD) Af Amer 50 L, Est GFR (MDRD) Non-Af 41 L, BUN/Creatinine Ratio 17.6, Glucose 92, Calcium 9.6, B-Natriuretic Peptide 87.2 Rhythm: EKG: ECHO: Stress Test: Cardiac Cath: PCI: CT Surgery: Holter monitor: EPS: PPM: CXR: Chest CT Scan: Radiography Diagnostic Testing: Radiology Impression Brain CT 01/17/24 20:33 IMPRESSION: Age-related changes of the brain. Electronically Signed: Tien Burger DO at 22:00 EST , Chest X-Ray 01/17/24 20:33 IMPRESSION: No radiographic evidence of acute cardiopulmonary disease. Electronically Signed: Tien Burger DO at 22:34 EST ,
[2024-01-18] MEDS: HEPARIN/D5w 25,000 UNITS 25,000 UNITS/250 ML IV.SOLN. 6 UNITS CONT INF (00:30)
--- NOTE | 2024-01-18 00:30 | EKG12_ITS ---
Test Reason : post cath Blood Pressure : */* mmHG Vent. Rate : 100 BPM Atrial Rate : 100 BPM P-R Int : 152 ms QRS Dur : 88 ms QT Int : 356 ms P-R-T Axes : 65 -24 141 degrees QTcB Int : 459 ms Sinus rhythm with occasional Premature ventricular complexes Marked ST abnormality, possible inferior subendocardial injury Abnormal ECG When compared with ECG of 17-Jan-2024 22:24, MANUAL COMPARISON REQUIRED DATA IS UNCONFIRMED Confirmed by CODY TERRAZAS, ALYSA ([id number]), commissioning editor LORE MANTILLA ([id number]) on 01/20/2024 6:10:01 AM Referred By: Cynthia Confirmed By: ALYSA ROSS MD
[2024-01-18] MEDS: 0.9% Normal Saline (1000mL) 1,000 ML 75 ML IV (01:37)
[2024-01-18] MEDS: Ondansetron 4 MG/2 ML Vial IV (01:37)
[2024-01-18] MEDS: Morphine 2 MG/ML Syringe IV (01:59)
--- NOTE | 2024-01-18 02:21 | NURSING ---
0125: Face sheet and EKG showing STEMI faxed to [place] [facility] per request of TOM Lynch. 0130: Report given to TOM Lynch from the chemical processing laborer at [facility]. 0145: Spoke with Dr. Wise, who spoke with Dr. Hayes (interventional radiologist) who will be accepting the patient at [place]. He said we can transfer the patient to their ED, where she will then be transferred to the [place] chemical processing laborer. 0150: Called [facility] for transport. They said they will call back with an ETA. 0200: [facility] called back and said they are not flying right now d/t the weather. [facility] was going to be transferring someone else on another floor here, and offered to transport her next. Report given, ETA is 0240. 0210: Called [place] ED back and informed them of updated plan, they did not need report at this time since it was already given to chemical processing laborer RN. Currently awaiting transport at this time.
== END 2024-01-18 03:12 | disposition short-term general hospital (02) ==
LOC: ED 22:45 → ICU 01-18 02:42 → ICUOUT 01-19 08:41
PROVIDERS: Emergency Provider Surgery; PCP Internal Medicine; Visit Provider Internal Medicine Interventional Cardiology
DX: I21.09 ST elevation (STEMI) myocardial infarction involving other coronary artery of anterior wall (principal); I24.9 Acute ischemic heart disease, unspecified; I16.1 Hypertensive emergency; F32.A Depression, unspecified; G62.9 Polyneuropathy, unspecified; M19.90 Unspecified osteoarthritis, unspecified site; I10 Essential (primary) hypertension; I25.10 Atherosclerotic heart disease of native coronary artery without angina pectoris; M79.7 Fibromyalgia; K21.9 Gastro-esophageal reflux disease without esophagitis
CPT/HCPCS: 70450; 71045; 80048; 83880; 84484; 85025; 93005; 93454; 99285; Q9967; A4216; C1769; C1894; J2405

== ENCOUNTER 2024-01-24 10:04 | Emergency (ER) | payer MEDICARE, SELFPAY ==
[2024-01-24] VITALS (56 sets, daily range): BP systolic 119–218; BP diastolic 41–178; PULSE 51–80; RESP 12–43; TEMP 36.6–36.8; O2SAT 70–100; BMI 25.7
--- NOTE | 2024-01-24 10:12 | EKG12_ITS ---
Test Reason : HTN Blood Pressure : */* mmHG Vent. Rate : 69 BPM Atrial Rate : 69 BPM P-R Int : 150 ms QRS Dur : 88 ms QT Int : 418 ms P-R-T Axes : 58 -34 61 degrees QTcB Int : 447 ms Sinus rhythm with Premature atrial complexes Left axis deviation Nonspecific T wave abnormality Abnormal ECG Confirmed by CODY TERRAZAS, ALYSA ([id number]), manuscript editor LORE MANTILLA ([id number]) on 01/28/2024 6:06:18 AM Referred By: FAZAL Confirmed By: ALYSA ROSS MD
[2024-01-24] MEDS: 0.9% Normal Saline (1000mL) 500 ML 999 ML IV (10:59)
[2024-01-24 11:03] LABS: Absolute Lymphocyte Count 1.07 X10^3/uL (0.83-4.51); Basophil# 0.05 X10^3/uL; Basophil% 0.6 % (0-1); Eosinophil# 0.11 X10^3/uL; Eosinophils% 1.4 % (0-5); Hematocrit 40.3 % (37-47); Hemoglobin 13.3 g/dL (12.0-15.0); Lymphocyte # 1.07 X10^3/ul (0.83-4.51); Lymphocyte % 13.6 % (19-41); Mean Corpuscular Hgb 30.3 pg (27.0-32.0); Mean Corpuscular Volume 91.8 fL (81-99); Mean Platelet Vol. 9.4 fl (6.2-12.0); Monocyte# 0.55 X10^3/uL; NRBC Flagged by Analyzer 0 % (0-5); Neutrophil # 6.03 X10^3/uL (2.7-7.7); Neutrophil % 76.9 % (47-70); Platelet Count 318 K/mm3 (150-450); RBC Distribution Width SD 43.7 fl (35.1-43.9); Red Blood Count 4.39 M/mm3 (4.2-5.4); White Blood Count 7.9 K/mm3 (4.4-11.0)
--- NOTE | 2024-01-24 11:07 | RAD_ITS ---
INDICATION: chest pain EXAMINATION/TECHNIQUE: X-RAY - XR Chest 2 Views COMPARISON: January 17, 2024 FINDINGS: LINES/DEVICES: None. LUNGS: No new consolidation, edema or effusion. There is stable mild thickening of the right minor fissure. No pneumothorax. MEDIASTINUM AND CARDIOVASCULAR STRUCTURES: Cardiac silhouette not enlarged. Central airways and mediastinal contour are unremarkable. BONES AND SOFT TISSUES: Unremarkable. RAD/Chest PA and Lateral IMPRESSION: No radiographic evidence of acute cardiopulmonary disease. Electronically Signed: Taisha Arora MD at 11:22 EST ,
[2024-01-24 11:08] LABS: International Normalized Ratio 1.1; Prothrombin Time (Protime)PT. 14.2 SECONDS (11.7-14.9)
--- NOTE | 2024-01-24 11:08 | EDS_ITS ---
HPI History of Present Illness Chief Complaint: Hypertension Narrative Narrative: Patient is a 83-year-old female with past medical history of hypertension, fibromyalgia, CAD status post recent stent placement at [facility] who presented to the emergency department the chief complaint of elevated blood pressure. Patient states that she was originally here was ultimately transferred to [facility] where there was discussion for PCI versus stent placement and she states that after discussion there they ultimately decided to undergo PCI placement. Patient notes that yesterday and today her blood pressure has been running high and she was concerned therefore she came here for further evaluation management. Patient states that she took all her morning meds including her blood pressure medication as well as her Plavix and aspirin. Patient outside of having elevated blood pressure as her complaint has no further complaints at this point time feels that her baseline. [facility] Medical History STEMI (ST elevation myocardial infarction) Acute coronary syndrome Fibromyalgia HTN (hypertension) Home Medications ?Medication ?Instructions ?Recorded ?Last Taken ?Type Omeprazole [Prilosec] 40 mg PO DAILY 08/23/13 02/23/16 05:00 History duloxetine 60 mg capsule,delayed 60 mg PO DAILY 08/23/13 08/23/13 08:00 History release gabapentin 300 mg capsule 300 mg PO TIDCM 08/23/13 08/23/13 08:00 History estradiol 0.01% (0.1 mg/gram) 1 applic vaginal 05/30/20 Unknown History vaginal cream metoprolol succinate 50 mg 50 mg PO DAILY 05/30/20 Unknown History tablet,extended release 24 hr amlodipine 2.5 mg tablet 2.5 mg PO DAILY 01/17/24 Unknown History aspirin 81 mg tablet,delayed 81 mg PO DAILY 01/24/24 Unknown History release clopidogrel 75 mg tablet 75 mg PO DAILY 01/24/24 Unknown History dorzolamide 2 % eye drops drp ophthalmic (eye) 01/24/24 Unknown History losartan 25 mg tablet 25 mg PO DAILY 01/24/24 Unknown History rosuvastatin 20 mg tablet 20 mg PO QHS 01/24/24 Unknown History Allergy/AdvReac Type Severity Reaction Status Date / Time amitriptyline Allergy Unknown Verified 01/17/24 18:45 codeine Allergy Chest Verified 01/17/24 18:45 tightness trazodone Allergy Other Verified 01/17/24 18:45 Social History Smoking Status: Never smoker ROS ROS ED ROS Narrative Constitutional: Denies any fevers, chills, headaches lightheadedness, dizziness Eyes: Denies any change in vision double vision blurry vision Cardiovascular: Denies chest pain or palpitations Respiratory: Denies coughing wheezing shortness of breath Abdomen: Denies abdominal pain nausea vomit diarrhea : Denies any urinary symptoms Neurological: Denies any numbness, weakness, tingling Musculoskeletal: Denies back pain Skin: Complains of bruising noted to her upper extremities since having the procedure performed EXAM Physical Exam Narrative Exam Narrative: General: Patient lying in bed rest comfortably did not appear to be acute distress Head: Atraumatic, normocephalic Eyes: PERRL bilateral, EOMI bilateral, no conjunctival injection noted Neck: Soft, supple, trach midline Cardiovascular: Regular rate and rhythm no murmurs gallops rubs noted Respiratory: Clear to auscultation bilaterally Abdomen: Soft, nondistended, nontender to palpation, bowel sounds present x 4. Patient's right groin site is healing well with minimal bruising from her heart catheterization at [place] Extremities: +2/4 radial pulse in the left upper extremity, patient has dopplerable pulse in the right radial artery, +5/5 strength noted in the bilateral upper and lower extremities, DP pulses +2/4 in the bilateral lower extremities, cap refill in the bilateral fingers was noted to be around 3 seconds Musculoskeletal: Compartments soft and compressible in the upper extremities bilaterally. Neurological: Patient following commands knew that she was at [facility] 2019 Skin: Warm, dry, patient has ecchymosis noted in the right upper extremity where her previous cath site was, see abdomen as well. Patient has duskiness noted right first 3 fingers of the distal tips and duskiness noted in the thumb and third finger in the left hand. Const Vital Signs: 01/24/24 10:05 01/24/24 10:14 01/24/24 10:15 Temperature 98 F Temperature Source Temporal Pulse Rate 72 80 67 Respiratory Rate 16 22 H 16 Respiratory Effort Respiratory Pattern Blood Pressure 197/65 H 186/69 H Blood Pressure Mean 109 101 Pulse Ox 90 97 95 Oxygen Delivery Method Room Air 01/24/24 10:17 12/14/24 10:20 01/24/24 10:23 Temperature Temperature Source Pulse Rate 74 Respiratory Rate 23 H Respiratory Effort Normal Non-Labored Respiratory Pattern Normal Blood Pressure 186/69 H Blood Pressure Mean 108 Pulse Ox 98 Oxygen Delivery Method Room Air Room Air 01/24/24 10:57 01/24/24 11:00 01/24/24 11:00 Temperature Temperature Source Pulse Rate 67 Respiratory Rate 21 H Respiratory Effort Respiratory Pattern Blood Pressure 195/84 H 205/60 H 205/60 H Blood Pressure Mean 114 101 101 Pulse Ox Oxygen Delivery Method 01/24/24 11:15 01/24/24 11:30 01/24/24 12:20 Temperature Temperature Source Pulse Rate 64 61 66 Respiratory Rate 18 16 24 H Respiratory Effort Respiratory Pattern Blood Pressure 217/178 H 184/76 H 204/63 H Blood Pressure Mean 190 104 96 Pulse Ox 97 100 100 Oxygen Delivery Method 01/24/24 12:22 01/24/24 12:27 01/24/24 12:28 Temperature Temperature Source Pulse Rate 64 Respiratory Rate 33 H Respiratory Effort Respiratory Pattern Blood Pressure 218/60 H 198/68 H 190/72 H Blood Pressure Mean 103 111 111 Pulse Ox 70 Oxygen Delivery Method 01/24/24 13:00 01/24/24 13:15 01/24/24 13:30 Temperature Temperature Source Pulse Rate 51 L 60 63 Respiratory Rate 21 H 26 H 25 H Respiratory Effort Respiratory Pattern Blood Pressure 181/60 H 171/54 H 171/62 H Blood Pressure Mean 95 87 94 Pulse Ox 95 98 95 Oxygen Delivery Method 01/24/24 13:45 01/24/24 13:56 Temperature Temperature Source Pulse Rate 64 Respiratory Rate 23 H Respiratory Effort Respiratory Pattern Blood Pressure 163/59 H 163/52 H Blood Pressure Mean 88 89 Pulse Ox 99 Oxygen Delivery Method MDM MDM MDM Narrative Medical decision making narrative: Patient is a 83-year-old female who presented to the emergency department chief complaint of hypertension. Patient will have a workup performed here on the differential diagnose includes Melamin to essential hypertension, hypertensive emergency, pseudoaneurysm in the right upper extremity, dissection. Once workup is obtained reviewed she will be reevaluated. The hospitalist note from 01/18/2024 was reviewed and initially on 16 January she had 2 negative troponins however she had EKG changes consistent with STEMI in the anterior leads with reciprocal changes noted therefore she was started on IV heparin was treated with aspirin Brilinta. She was ultimately taken to the [facility] was found to have severe triple-vessel disease with 99% occlusion of both OM1 and OM@with a notably small RCA and diffuse 99% stenosis indicating need for CABG with patient developing ventricular fibrillation transiently when catheter was placed into the heart. Ultimately she was transferred to [facility]. Patient's CBC was reviewed and showed no evidence of leukocytosis white blood count was normal at 7.9, hemoglobin stable 13.3, platelet count was noted to be normal at 318. Patient's INR normal at 1.1, PT of 14.2. Patient sodium normal 139, potassium normal 3.9, creatinine normal at 0.85. Patient's magnesium level was normal at 2.1, troponin was elevated at 334 and a delta troponin noted to be 288. Patient's proBNP was ordered however the machine is broken here and will not be available until Friday therefore this will not be obtained. Patient's EKG reviewed and independently interpreted myself showed sinus rhythm with a rate of [address] depressions noted in the lateral leads of V4 through V6. Patient's EKGs were reviewed from January 16 as well. Patient's chest x-ray reviewed by myself and by radiology as well which showed no acute cardiopulmonary processes. On reevaluation the patient after a 500 cc bolus of IV fluids the cyanosis in her right fingers resolved. Clinically she remains dehydrated with dry mucous membranes therefore she was given another 500 cc bolus of IV fluids. At this point time we will discuss the case with [place] cardiology for further evaluation management. I called and discussed case with Dr. Jerman Oconnor who states that he would recommend transferring the patient back to [facility] for further evaluation management given her recent heart catheterization with PCI intervention. I did notify the patient and significant other at bedside who is agreeable with this plan. Patient's blood pressure did improved to 163/52 after 0.1 mg of clonidine was given. Once again the patient took her aspirin, Plavix As well as the rest of her prescribed medications prior to arrival. Lab Data Labs: Laboratory Results - last 24 hr 01/24/24 01/24/24 10:55 13:10 WBC 7.9 RBC 4.39 Hgb 13.3 Hct 40.3 MCV 91.8 MCH 30.3 MCHC 33.0 RDW Std Deviation 43.7 RDW Coeff of Marco Antonio 13.0 Plt Count 318 MPV 9.4 Immature Gran % (Auto) 0.500 Neut % (Auto) 76.9 H Lymph % (Auto) 13.6 L Hudson % (Auto) 7.0 Eos % (Auto) 1.4 Baso % (Auto) 0.6 Absolute Neuts (auto) 6.0 Absolute Lymphs (auto) 1.07 Nucleated RBC % 0 PT 14.2 INR 1.1 APTT 26.6 Sodium 139 Potassium 3.9 Chloride 110 H Carbon Dioxide 23.0 Anion Gap 6 BUN 19 H Creatinine 0.85 Estim Creat Clear Calc 44.00 Est GFR (MDRD) Af Amer 82 Est GFR (MDRD) Non-Af 68 BUN/Creatinine Ratio 22.3 H Glucose 116 H Calcium 9.3 Magnesium 2.1 Troponin I High Sens 334 H* 288 H* Radiography Diagnostic Testing: Clinical Impression(s) from Imaging Studies Chest X-Ray 01/24/24 11:07 IMPRESSION: No radiographic evidence of acute cardiopulmonary disease. Electronically Signed: Taisha Arora MD at 11:22 EST , Discharge Plan Triage Chief Complaint: Hypertension ED Provider: Mejia Shah Dx/Rx/DC Orders Clinical Impression: Hypertension, History of CAD (coronary artery disease) Prescriptions: No Action gabapentin 300 MG capsule 300 mg PO TIDCM Patient Comments: NEUROPATHY duloxetine 60 MG capsule 60 mg PO DAILY Patient Comments: ANTI-DEPRESSANT Omeprazole [Prilosec] 40 MG capsule 40 mg PO DAILY Patient Comments: ACID REFLUX metoprolol succinate 50 MG tablet 50 mg PO DAILY estradiol 42.5 GM cream 1 applic VAGINAL amlodipine 2.5 mg tablet 2.5 mg PO DAILY clopidogrel 75 mg tablet 75 mg PO DAILY aspirin 81 mg tablet,delayed release (DR/EC) 81 mg PO DAILY losartan 25 mg tablet 25 mg PO DAILY dorzolamide 2 % drops ophthalmic (eye) rosuvastatin 20 mg tablet 20 mg PO QHS Primary Care Provider: Audrey Lang Referrals: Audrey Lang MD [Primary Care Provider] - Print Language: Uzbek Disposition Disposition: DC/Tx to Another Type of HCF
[2024-01-24 11:09] LABS: Partial Thromboplast Time 26.6 Seconds (24.1-36.2)
[2024-01-24 11:39] LABS: Anion Gap 6 (5-15); BUN 19 mg/dL (7-18); BUN/Creat Ratio 22.3 RATIO (10-20); Calcium,Total 9.3 mg/dL (8.5-10.1); Chloride 110 mmol/L (98-107); Creatinine, Serum 0.85 mg/dL (0.55-1.02); EST Glomerular Filtration Rate 68 mL/min (>60); Est Glom Filt Rate - Afr Amer 82 mL/min (>60); Glucose 116 mg/dL (74-106); Magnesium 2.1 mg/dL (1.6-2.6); Potassium 3.9 mmol/L (3.5-5.1); Sodium Level 139 mmol/L (136-145); Troponin-I HS (w/2H Reflex) 334 pg/mL (3.0-54.0)
[2024-01-24] MEDS: 0.9% Normal Saline (500mL Bag) 500 ML 999 ML IV (12:31)
[2024-01-24] MEDS: cloNIDine HCl 0.1 MG Tablet PO (12:34)
[2024-01-24 12:57] LABS: Reflex Troponin-HS? (from REC) Y
[2024-01-24 13:52] LABS: Troponin-I HS 288 pg/mL (3.0-54.0)
--- NOTE | 2024-01-24 17:12 | EKG12_ITS ---
Test Reason : HTN Blood Pressure : */* mmHG Vent. Rate : 62 BPM Atrial Rate : 62 BPM P-R Int : 134 ms QRS Dur : 86 ms QT Int : 408 ms P-R-T Axes : 41 -37 52 degrees QTcB Int : 414 ms Sinus rhythm with occasional Premature ventricular complexes Left axis deviation Nonspecific ST and T wave abnormality Abnormal ECG Confirmed by RADHA TERRAZAS, BARBARA ([id number]), industrial editor LORE MANTILLA ([id number]) on 01/28/2024 1:38:22 P M Referred By: TB Confirmed By: BARBARA GARCIA MD
--- NOTE | 2024-01-24 17:27 | ED.RN ---
pt having chest and back pain.dr momin aware.repeatlab work ordered,repeat ekg and medication
[2024-01-24] MEDS: Ondansetron 4 MG/2 ML Vial IV (17:30)
[2024-01-24] MEDS: Morphine 4 MG/ML Syringe IV (17:30)
[2024-01-24 17:46] LABS: Troponin-I HS 250 pg/mL (3.0-54.0)
[2024-01-24 17:49] LABS: D-Dimer Quantitative (DVT/PE) 0.72 FEU/ug/m (0.27-0.49)
--- NOTE | 2024-01-24 17:53 | CT_ITS ---
STUDY: CTA CHEST REASON FOR EXAM: Female, 83 years old. elevated dimer, pain radiating to back RADIATION DOSAGE (If Supplied By Facility): CTDIvol = ( 6.05 ) mGy, DLP = ( 149.81 ) mGycm TECHNIQUE: The examination was performed with the intravenous administration of IV 100mL Isovue-370. Post-processing of the angiographic images was performed, with multiplanar reformation and 3D reconstruction. Individualized dose optimization techniques were used for this CT. COMPARISON: Chest x-ray dated January 24, 2024 FINDINGS: Cystic emphysematous changes are present with mild scattered interstitial fibrotic opacities. Mild groundglass edema is also present bilaterally. No visualized nodules or masses or spiculated lesions. No pleural effusion is present. No demonstrated pneumonic consolidation. No pneumothorax is present. Normal enhancement of the main pulmonary artery and right and left pulmonary arteries. Normal enhancement of the bilateral peripheral pulmonary arteries. There is no demonstrated pulmonary embolism. There is atherosclerotic calcification of the aortic arch with tortuosity. There is no demonstrated aortic dissection. Normal heart and pericardium. There are calcifications of the coronary arteries. Normal mediastinum. Normal hilar regions. Normal visualized trachea and bronchi. The lungs are well expanded. Normal chest wall structures. There are degenerative changes of thoracic spine. Included upper abdomen: Small hiatal hernia. The remaining visualized structures are unremarkable. Mild cortical atrophy of the kidneys. CT/CTA Chest W/WO Contrast IMPRESSION: 1. COPD/emphysema with mild groundglass edema either due to developing volume overload or pneumonitis 2. No demonstrated pulmonary embolism or arterial dissection. Electronically Signed: Dar Charles MD at 19:04 [facility] Reading Location ID and State: [facility] / [place] , Service support ,
[2024-01-25 00:05] VITALS: BP 190/67; PULSE 66; RESP 13; O2SAT 97
[2024-01-25 00:16] VITALS: BP 155/82; PULSE 73; RESP 18; O2SAT 98
--- NOTE | 2024-01-25 00:17 | EKG12_ITS ---
Test Reason : CP/HTN/REPEAT Blood Pressure : */* mmHG Vent. Rate : 68 BPM Atrial Rate : 68 BPM P-R Int : 148 ms QRS Dur : 84 ms QT Int : 386 ms P-R-T Axes : 48 -38 108 degrees QTcB Int : 410 ms Sinus rhythm with marked sinus arrhythmia Left axis deviation T wave abnormality, consider anterolateral ischemia Abnormal ECG Confirmed by RADHA TERRAZAS, BARBARA ([id number]), editor & co founder LORE MANTILLA ([id number]) on 01/28/2024 1:38:33 P M Referred By: Confirmed By: BARBARA GARCIA MD
[2024-01-25 00:42] VITALS: BP 175/71; PULSE 79
[2024-01-25] MEDS: Nitroglycerin Oint 1 INCH PACKET TD (00:42)
[2024-01-26 17:27] LABS: BNP,B-Type NATRIURETIC PEPTIDE 177.2 pg/mL (0-100)
== END 2024-01-25 01:08 | disposition other institution (70) ==
PROVIDERS: Emergency Provider Emergency Medicine; PCP Internal Medicine; Visit Provider Emergency Medicine
DX: I10 Essential (primary) hypertension (principal); I25.10 Atherosclerotic heart disease of native coronary artery without angina pectoris; E86.0 Dehydration; Z95.5 Presence of coronary angioplasty implant and graft; I25.2 Old myocardial infarction; Z79.82 Long term (current) use of aspirin; R07.9 Chest pain, unspecified; R94.31 Abnormal electrocardiogram [ECG] [EKG]; R79.1 Abnormal coagulation profile
CPT/HCPCS: 71046; 71275; 80048; 83735; 83880; 84484; 85025; 85379; 85610; 85730; 93005; 96361; 96374; 96375; 99285; Q9967; A4216; J2405

== ENCOUNTER → 2024-09-07 | Outpatient (CLI) | payer MEDICARE, SELFPAY ==
[2024-09-07 09:49] LABS: Hematocrit 42.4 % (37-47); Hemoglobin 13.9 g/dL (12.0-15.0); Immature Granulocytes Count 0.030 X10^3/uL (0.0-0.0); Mean Corp Hgb Conc 32.8 g/dL (32-36); Mean Corpuscular Volume 91.0 fL (81-99); Mean Platelet Vol. 10.1 fl (6.2-12.0); NRBC Flagged by Analyzer 0 % (0-5); Platelet Count 299 K/mm3 (150-450); RBC Distribution Width CV 13.4 % (11.6-14.6); RBC Distribution Width SD 45.6 fl (35.1-43.9); Red Blood Count 4.66 M/mm3 (4.2-5.4); White Blood Count 9.7 K/mm3 (4.4-11.0)
[2024-09-07 10:29] LABS: Anion Gap 14 (5-15); BUN 28 mg/dL (4-19); BUN/Creat Ratio 19.9 RATIO (10-20); Calcium,Total 10.3 mg/dL (7.6-11.0); Carbon Dioxide 21.1 mmol/L (21.0-32.0); Chloride 103 mmol/L (98-108); Glucose 120 mg/dL (70-99); Potassium 4.9 mmol/L (3.3-5.1); Pro- Brain NATRIURETIC PEPTIDE 258 pg/mL (<=1800)
== END | disposition home or self-care (01) ==
PROVIDERS: PCP Internal Medicine; Referring Provider Nurse Practitioner Gerontology; Visit Provider Nurse Practitioner Gerontology
DX: R06.09 Other forms of dyspnea (principal); R53.83 Other fatigue
CPT/HCPCS: 36415; 80048; 83880; 84443; 85025

== ENCOUNTER 2024-09-19 03:53 | Emergency (ER) | payer MEDICARE, SELFPAY ==
[2024-09-19] VITALS (23 sets, daily range): BP systolic 108–151; BP diastolic 47–82; PULSE 68–94; RESP 16–38; TEMP 36.6–36.9; O2SAT 93–100; BMI 25.4
--- NOTE | 2024-09-19 04:26 | EKG12_ITS ---
Test Reason : DYSRHYTHMIA Blood Pressure : */* mmHG Vent. Rate : 82 BPM Atrial Rate : 82 BPM P-R Int : 140 ms QRS Dur : 92 ms QT Int : 382 ms P-R-T Axes : 39 -23 41 degrees QTcB Int : 446 ms Normal sinus rhythm Normal ECG Confirmed by CODY TERRAZAS, ALYSA ([id number]), continuity editor YASMIN VO ([id number]) on 09/20/2024 1:14:54 PM Referred By: Confirmed By: ALYSA ROSS MD
--- NOTE | 2024-09-19 04:40 | RAD_ITS ---
PROCEDURE: CHEST 1 VIEW (PORTABLE) 09/19/2024 REASON FOR EXAM: CHEST PAIN TECHNIQUE: Frontal view of the chest. COMPARISON: 02/03/2024 FINDINGS: Scoliosis. Upper limits of normal heart size, possible LVH. Status post coronary artery stenting. Elevated right hemidiaphragm. No consolidation, effusion, or pneumothorax. RAD/Chest 1 View (Portable) IMPRESSION: No acute chest findings [facility]
[2024-09-19] MEDS: Lorazepam 2 MG/ML WCH Syringe 0.5 MG IV (04:52)
[2024-09-19 04:56] LABS: Hematocrit 34.9 % (37-47); Hemoglobin 11.4 g/dL (12.0-15.0); Immature Granulocytes Count 0.040 X10^3/uL (0.0-0.0); Mean Corp Hgb Conc 32.7 g/dL (32-36); Mean Corpuscular Volume 90.9 fL (81-99); Mean Platelet Vol. 10.1 fl (6.2-12.0); NRBC Flagged by Analyzer 0 % (0-5); Platelet Count 221 K/mm3 (150-450); RBC Distribution Width CV 13.8 % (11.6-14.6); RBC Distribution Width SD 46.4 fl (35.1-43.9); Red Blood Count 3.84 M/mm3 (4.2-5.4); White Blood Count 9.2 K/mm3 (4.4-11.0)
--- OUTSIDE RECORDS SUMMARY | 2024-09-19 05:06 | XMS RPT_ITS | CCD ---
Author Organization [facility] CliniSyct Care Team Providers Care Dimmer Board Operator Name Role Phone Karen Resendiz MD Primary Care Provider ASTRID TERRAZAS, DR JONES Primary Care Physician Karen Resendiz MD Primary Care Provider Luis Alberto OPERATOR TECHNICIAN.LAWN CARE SPECIALIST, Maddie Unavailable Haley OPERATOR TECHNICIAN.TANDEM MILL STICKER, Nelli Unavailable Kaushik RN, Korina Unavailable ASTRID TERRAZAS, DR JONES Primary Care Unavailable SATISH TERRAZAS, RODRIGO Admitting Unavailable RODRIGO HAYES MD Attending Unavailable SERVANDO KEANE MD Consulting Unavail able ASTRID TERRAZAS, DR JONES Primary Care Unavailable MALACHI TERRAZAS, DR NIETO Admitting Unavailab naveed LY MD, DR NIETO Attending Unavailab naveed ALMARAZ MD, TONIA Consulting Unavailable Kaushik RN, Korina Unavailable Haley OPERATOR TECHNICIAN.TANDEM MILL STICKER, Nelli Unavailable Luis Alberto OPERATOR TECHNICIAN.LAWN CARE SPECIALIST, Maddie Unavailable Dr. aKren Resendiz MD Primary Care Provider [phone] Dr. Karen Resendiz MD Referring Provider Joanne Ferrari Attending Provider KAREN RESENDIZ Primary Care Unavailable ALEXEI SKELTON Attending Unavailable KAREN RESENDIZ Primary Care Unavailable ALEXEI SKELTON Referring Unavailable KAREN RESENDIZ Attending Unavailable KAREN RESENDIZ Primary Care Unavailable KAREN RESENDIZ Attending Unavailable TALAMPAS, KAREN D Primary Care Unavailable NELLI REYES Attending Unavailable TALAMPAS, KAREN D Primary Care Unavailable NELLI REYES Attending Unavailable TALAMPAS, KAREN D Primary Care Unavailable TALAMPAS, KAREN D Primary Care Unavailable TALAMPAS, KAREN D Referring Unavailable MADDIE SAHU Attending Unavailable TALAMPAS, KAREN D Primary Care Unavailable TALAMPAS, KAREN D Primary Care Unavailable TALAMPAS, KAREN D Attending Unavailable Zechariah WEAVER, Joanne Referring Provider Talampas, Karen D Referring Unavailable Talampas, Karen D Primary Care Unavailable Kenny Good Attending Unavailable Talampas, Karen D Referring Unavailable Talampas, Karen D Primary Care Unavailable Joel Reynolds NP Attending Unavailable Talampas, Karen D Primary Care Unavailable Belal, Farouk Admitting Unavailable Belal, Farouk Consulting Unavailable Belal, Farouk Attending Unavailable Vazquez Woodard Attending Unavailable Ambika VELAZQUEZ, Tessie Mcgee Attending Unavail able Talampas, Karen D Referring Unavailable Talampas, Karen D Primary Care Unavailable Talampas, Karen D Referring Unavailable Joanne Apple NP Attending Unavailable Talampas, Karen D Primary Care Unavailable Joanne Apple NP Attending Unavailable Joanne Apple NP Referring Unavailable Talampas, Karen D Primary Care Unavailable Joanne Apple NP Referring Unavailable Talampas, Karen D Primary Care Unavailable Zechariah MARIA, Joanne Attending Unavailable Talampas, Karen D Primary Care Unavailable Mejia Shah Attending Unavailable Talampas, Karen D Primary Care Unavailable Belal, Farouk Admitting Unavailable Belal, Farouk Attending Unavailable Allergies Allergy Classification Reported Allergen(s) Allergy Type Date of Onset Reaction(s) Facility (20 sources) Amitriptyline; Translations: [AMITRIPTYLINE] Drug Allergy 3 Other: See Comments [facility] Work Phone: (20 sources) Codeine; Translations: [CODEINE] Drug Allergy 5 Chest tightness [facility] Work Phone: (20 sources) Sulfonamides (Antibiotic); Translations: [SULFA (SULFONAMIDE ANTIBIOTICS)] Drug Allergy 6 Hives, Swelling, Itching [facility] Work Phone: (20 sources) traZODone; Translations: [TRAZODONE] Drug Allergy 5 Other [facility] Work Phone: Comment on above: HALLUCINATIONS (2 sources) Sulfonamide; Translations: [sulfa drugs] Drug allergy [facility] (1 source) Amitriptyline Drug Allergy 5 [facility] (1 source) Codeine Drug Allergy 5 [facility] (1 source) traZODone Drug Allergy 5 [facility] Medications Current Medications Medication Drug Class(es) Dates Sig (Normalized) Sig (Original) [id number] 200 actuat albuterol 0.09 mg/actuat metered dose inhaler (2 sources) beta2-Adrenergic Agonist Start: 06-30-2024 take 2 puff(s) by inhalation every four hours as needed for wheezing albuterol HFA (PROVENTIL HFA, VENTOLIN HFA) 90 mcg/actuation inhaler Inhale 2 puffs as instructed every 4 hours as needed for wheezing/shortne ss of breath. 1 each 06/30/2024 Active amLODIPine 10 mg oral tablet (20 sources) Dihydropyridine Calcium Channel Ajnay Start: 02-20-2024 End: 05-11-2024 take 1 tablet by mouth once daily Amlodipine 10 mg tablet Active 10 mg PO daily 09 01February 20, 2024 3:44pm Start: 01-26-2024 End: 03-12-2024 take 2 tablets by mouth once daily amLODIPine (NORVASC) 5 mg tablet Take 10 mg by mouth once daily. 01/26/2024 03/12/2024 Discontinued Start: 01-26-2024 End: 02-20-2024 take 1 tablet by mouth once daily Amlodipine 5 mg tablet Discontinued 5 mg PO daily 09 01February 20, 2024 12:40pm February 20, 2024 3:45pm Start: 01-01-2024 End: 03-12-2024 take 1 tablet by mouth once daily Amlodipine 2.5 mg tablet Discontinued 2.5 mg PO DAILY January 25, 2024 1:00am February 20, 2024 11:58am amoxicillin 875 mg oral tablet (3 sources) Penicillin-class Antibacterial Start: 03-12-2024 End: 03-17-2024 take 1 tablet by mouth twice daily amoxicillin (AMOXIL) 875 mg tablet Indications: Acute non-recurrent sinusitis, unspecified location Take 1 tablet by mouth two times a day for 5 days. 10 tablet 03/12/2024 03/17/2024 Active aspirin 81 mg delayed release oral tablet (13 sources) Platelet Aggregation Inhibitor, Nonsteroidal Anti-inflammatory Drug Start: 01-20-2024 End: 07-13-2025 take 1 tablet by mouth once daily Aspirin 81 mg tablet,delayed release (DR/EC) Active 81 mg PO DAILY January 24, 2024 1:00am clopidogrel 75 mg oral tablet (14 sources) [id number] Platelet Inhibitor Start: 01-20-2024 End: 04-14-2025 take 1 tablet by mouth once daily Clopidogrel 75 mg tablet Active 75 mg PO DAILY January 24, 2024 1:00am COMPOUNDED PRESCRIPTION (20 sources) Start: 03-31-2013 COMPOUNDED PRESCRIPTION Indications: Myalgia and myositis, unspecified , Generalized osteoarthrosis, unspecified site Massage therapy Dx: Fibromyalgia, Arthritis 03/31/2013 Active Comment on above: Massage therapy Dx: Fibromyalgia, Arthritis crisaborole 0.02 mg/mg topical ointment (20 sources) Start: 01-18-2024 crisaborole 2% topical ointment Apply 1 sammy, Topical, BID, wash hands thoroughly after application, # 60 gram(s), 0 Refill(s), Ointment, 66 Start Date: 01/18/24 Status: Ordered Start: 11-07-2023 crisaborole 2 % Indications: Eczema, unspecified type Apply to affected area two times a day. Apply a thin film to affected area(s) 2 times daily 100 g 1 11/07/2023 Active dorzolamide 20 mg/ml ophthalmic solution (6 sources) Carbonic Anhydrase Inhibitor Start: 01-24-2024 Dorzolamide 2 % drop s Active 1 NMA OPHTHALMIC THREE TIMES A DAY January 24, 2024 1:00am Start: 01-18-2024 take 1 dose into the eye(s) three times daily dorzolamide 2% ophthalmic solution Dose = 1 drop(s), Eyes, both, TID, # 10 mL, 0 Refill(s) Start Date: 01/18/24 Status: Ordered Start: 05-22-2020 End: 07-18-2021 dorzolamide (TRUSOPT) 2 % op hthalmic solution dorzolamide HCl/PF (DORZOLAMIDE, PF,) 2 % drop (20 sources) Start: 07-18-2021 take 1 drop(s) into the eye(s) three times daily dorzolamide HCl/PF (DORZOLAMIDE, PF,) 2 % drop Use 1 Drop in eyes three times daily. 07/18/2021 Active Start: 07-18-2021 take 1 drop(s) into the eye(s) three times daily dorzolamide HCl/PF (DORZOLAMIDE, PF,) 2 % drop Use 1 Drop in eyes three times daily. 0 07/18/2021 Active Comment on above: Use 1 Drop in eyes t hree times daily. Dry Eye Relief ophthalmic solution (2 sources) Start: 4 Dry Eye Relief ophthalmic solution Dose = 1 drop(s), Eyes, both, BID, PRN as needed for dry eyes, # 30 mL, 0 Refill(s) Start Date: 01/18/24 Status: Ordered DULoxetine 60 mg delayed release oral capsule (20 sources) Serotonin and Norepinephrine Reuptake Inhibitor Start: 4 End: 5 take 1 capsule by mouth once daily DULoxetine (CYMBALTA) 60 mg capsule Indications: Generalized anxiety disorder , Recurrent major depressive disorder, in partial remission Take 1 capsule by mouth once daily. 90 capsule 3 05/11/2024 Active Comment on above: Take 1 capsule by [facility] once daily. estradiol 0.1 mg/ml vaginal cream (20 sources) Estrogen Start: 2 End: 3 estradiol (ESTRACE) 0.01 % (0.1 mg/gram) vaginal cream Indications: Vaginal burning , Vaginal atrophy Apply to urethral opening for atrophic vaginitis. Two to three times a week. 42.5 g 2 11/02/2022 Active Start: 05-30-2020 End: 01-24-2024 Estradiol 42.5 GM cream Disc ontinued 1 NMA VAGINAL May 30, 2020 12:00am January 24, 2024 7:45pm Start: 03-25-2019 End: 01-15-2022 estradiol (ESTRACE) 0.01 % ( 0.1 mg/gram) vaginal cream Indications: Atrophic vaginitis Apply to urethral area as directed 0 03/25/2019 01/15/2022 Discontinued Comment on above: Apply to urethral ar ea as directed Apply to urethral op ening for atrophic vaginitis. Two to three times a week. gabapentin 300 mg oral capsule (20 sources) Anti-epileptic Agent Start: 05-11-2024 End: 05-11-2025 take 1 capsule by mouth three times daily at mealtime Gabapentin 300 mg capsule Active 300 mg PO 3 TIMES DAILY WITH MEALS September 07, 2024 8:21am Start: 12-05-2022 End: 09-07-2024 take 2 capsules by mouth three times daily at mealtime Gabapentin 300 mg capsule Discontinued 600 mg PO 3 TIMES DAILY WITH MEALS February 20, 2024 11:56am September 07, 2024 8:22am Start: 11-02-2022 End: 05-01-2023 take 3 capsules by mouth twice daily, then take 2 capsules by mouth three times daily gabapentin (NEURONTIN) 300 mg capsule Take 3 capsules by mouth twice daily for 180 days. TAKE 2 CAPSULES THREE TIMES DAILY DIRECTED 540 capsule 1 11/02/2022 12/05/2022 Discontinued Start: 08-26-2021 End: 11-02-2022 gabapentin (NEURONTIN) 300 m g capsule TAKE 2 CAPSULES THREE TIMES DAILY DIRECTED Do not start before August 26, 2021. 540 capsule 3 08/26/2021 11/02/2022 Discontinued Start: 06-05-2020 End: 07-18-2021 gabapentin (NEURONTIN) 300 m g capsule TAKE 2 CAPSULES THREE TIMES DAILY DIRECTED 540 capsule 3 06/05/2020 07/18/2021 Discontinued Start: 08-23-2013 End: 02-20-2024 take 1 capsule by mouth three times daily at mealtime Gabapentin 300 MG capsule Discontinued 300 mg PO 3 TIMES DAILY WITH MEALS August 23, 2013 12:00am February 20, 2024 12:00pm Comment on above: TAKE 2 CAPSULES THRE E TIMES DAILY DIRECTED TAKE 2 CAPSULES THRE E TIMES DAILY DIRECTED Do not start before August 26, 2021. Take 3 capsules by m outh twice daily for 180 days. TAKE 2 CAPSULES THREE TIMES DAILY DIRECTED glycerin-min oil-polycarbophil (REPLENS) gel (20 sources) Start: 03-25-2019 glycerin-min oil-polycarbophil (REPLENS) gel Uses Replens cream 3 times weekly 03/25/2019 Active Start: 03-25-2019 glycerin-min o il-polycarbophil (REPLENS) gel Uses Replens cream 3 times weekly 0 03/25/2019 Active Comment on above: Uses Replens cream 3 times weekly 24 hr isosorbide mononitrate 30 mg extended release oral tablet (13 sources) Nitrate Vasodilator Start: 4 End: 5 take 1 tablet by mouth once daily, then take 1 tablet by mouth every twenty-four hours Isosorbide Mononitrate 30 mg tablet extended release 24 hr Active 30 mg PO daily February 20, 2024 1:00am losartan potassium 50 mg oral tablet (16 sources) Angiotensin 2 Receptor Janay Start: 5 take 1 tablet by mouth once daily Losartan 50 mg tablet Active 50 mg PO daily February 20, 2024 1:00am Start: 01-25-2024 End: 01-27-2024 take 1 tablet by mouth once daily Losartan 50 mg tablet Active 50 mg PO daily February 20, 2024 1:00am Start: 01-20-2024 End: 07-18-2024 take 1 tablet by mouth once daily Losartan 25 mg tablet Discontinued 25 mg PO DAILY January 24, 2024 1:00am February 20, 2024 11:58am mirtazapine 15 mg oral tablet (1 source) Start: 09-08-2024 take 1 tablet by mouth once daily at bedtime mirtazapine (REMERON) 15 mg tablet Indications: Grief reaction , Recurrent major depressive disorder, in partial remission , Adjustment insomnia Take 1 tablet by mouth daily at bedtime. 90 tablet 1 09/08/2024 Active [facility] (20 sources) Start: 11-02-2022 Miscellaneous Medical Supply Lovebug probiotics--Yeast and Vaginal PH support probiotic. Probiotic blend. Takes 1 by mouth at bedtime 11/02/2022 Active Start: 11-02-2022 [employer] Lovebug probiotics--Yeast and Vaginal PH support probiotic. Probiotic blend. Takes 1 by mouth at bedtime 0 11/02/2022 Active Comment on above: Lovebug probiotics-- Yeast and Vaginal PH support probiotic. Probiotic blend. Takes 1 by mouth at bedtime omeprazole 40 mg delayed release oral capsule (20 sources) Proton Pump Inhibitor Start: 4 take 1 dose by mouth once daily omeprazole Dose : 40 mg =, Oral, qDay, 0 Refill(s) Start Date: 01/18/24 Status: Ordered Start: 08-23-2013 End: 03-15-2024 take 1 capsule by mouth once daily Omeprazole (Prilosec) 40 MG capsule Active 40 mg PO DAILY August 23, 2013 12:00am Comment on above: Take 1 capsule by [facility] once daily. rosuvastatin calcium 20 mg oral tablet (14 sources) HMG-CoA Reductase Inhibitor Start: End: 6 take 1 tablet by mouth at bedtime Rosuvastatin 20 mg tablet Active 20 mg PO AT BEDTIME January 24, 2024 1:00am zaleplon 5 mg oral capsule (2 sources) gamma-Aminobutyric Acid A Receptor Agonist Start: End: 4 take 1 capsule by mouth once daily at bedtime zaleplon (SONATA) 5 mg capsule Indications: Other insomnia Take 1 capsule by mouth daily at bedtime for 30 days. 30 capsule 11/07/2023 12/07/2023 Active Completed/Discontinued Medications Medication Drug Class(es) Dates Sig (Normalized) Sig (Original) benzonatate 100 mg oral capsule (2 sources) Non-narcotic Antitussive Start: 06-30-2024 End: 09-08-2024 take 1 capsule by mouth every eight hours as needed benzonatate (TESSALON PERLE) 100 mg capsule Take 1 capsule by mouth three times a day as needed for cough. 30 capsule 06/30/2024 09/08/2024 Discontinued calcium carbonate 1500 mg / cholecalciferol 800 unt oral tablet (20 sources) Vitamin D Start: 08-23-2013 End: 01-17-2024 Calcium Carbonate-Vitamin D3 1 EACH tablet Discontinued 1 NMA PO DAILY August 23, 2013 12:00am January 17, 2024 8:59pm Start: 10-16-2004 End: 11-07-2023 take 1 tablet by mouth once daily CALCIUM 600 + D(3) 600 MG-200 UNIT ORAL TAB Indications: Osteoporosis, unspecified one tab daily 0 10/16/2004 11/07/2023 Discontinued Comment on above: one tab daily cholecalciferol 0.05 mg oral capsule (17 sources) Vitamin D Start: End: take 1 capsule by mouth once daily Cholecalciferol, Vitamin D3, 50 mcg (2,000 unit) cap Take 1 capsule by mouth once daily. 07/18/2021 11/07/2023 Discontinued Comment on above: Take 1 capsule by mo [facility] once daily. clobetasol propionate 0.0005 mg/mg topical ointment (19 sources) Corticosteroid Start: End: clobetasol (TEMOVATE) 0.05 % ointment Actually gets compounded RX 0.07% through [facility] from [employer] to use twice weekly 11/02/2022 03/12/2024 Discontinued Comment on above: Actually gets compou nded RX 0.07% through [facility] from [employer] to use twice weekly clonazePAM 1 mg oral tablet (10 sources) Benzodiazepine Start: 014 End: take 1 tablet by mouth at bedtime Clonazepam (Klonopin) 1 MG tablet Discontinued 1 mg PO AT BEDTIME August 23, 2013 12:00am January 17, 2024 8:59pm Comment on above: Take 1 tablet by [facility] daily at bedtime for 180 days. Do not start before June 19, 2020. colestipol hydrochloride 1000 mg oral tablet (8 sources) Bile Acid Sequestrant Start: End: take 1 tablet by mouth once daily colestipol (COLESTID) 1 gram tablet Indications: Irritable bowel syndrome with diarrhea , S/P cholecystectomy Take 1 tablet by mouth once daily. 90 tablet 3 01/15/2022 05/07/2023 Discontinued Comment on above: Take 1 tablet by [place] once daily. doxycycline hyclate 100 mg oral tablet (1 source) Tetracycline-class Drug Start: End: take 1 tablet by mouth twice daily doxycycline (VIBRA-TABS) 100 mg tablet Take 1 tablet by mouth two times a day for 10 days. 20 tablet 06/30/2024 07/10/2024 erythromycin 0.005 mg/mg ophthalmic ointment (2 sources) Macrolide, Macrolide Antimicrobial Start: End: erythromycin ophthalmic ointment Estriol (2 sources) Start: End: estriol 0.1% cream (CPD) Compound script for Estriol 1mg/ml cream 2-3 x's weekly. 1 Each 04/03/2020 07/18/2021 Discontinued Start: 04-03-2020 estriol 0.1% c ream (CPD) Compound script for Estriol 1mg/ml cream 2-3 x's weekly. 1 Each 04/03/2020 Active Comment on above: Compound script for Estriol 1mg/ml cream 2-3 x's weekly. fluconazole 150 mg oral tablet (2 sources) Azole Antifungal Start: 5 End: take 1 tablet by mouth once fluconazole (DIFLUCAN) 150 mg tablet Indications: Acute non-recurrent sinusitis, unspecified location Take 1 tablet by mouth one time only for 1 dose. 1 tablet 03/12/2024 03/12/2024 Inhalational Spacing Device (1 source) Start: End: Inhalational Spacing Device 1 device one time only for 1 dose. 1 each 06/30/2024 06/30/2024 Lactobacillus acidophilus (18 sources) End: LACTOBACILLUS ACIDOPHILUS (PROBIOTIC ORAL) Take by mouth. 11/07/2023 Discontinued LACTOBACILLUS AC IDOPHILUS (PROBIOTIC ORAL) Take by mouth. 0 Active Comment on above: Take by mouth. lisinopril 2.5 mg oral tablet (2 sources) Angiotensin Converting Enzyme Inhibitor Start: 4 End: 4 take 0.5 mg by mouth once daily Lisinopril (Zestril) 2.5 MG tablet Discontinued 0.5 mg PO DAILY August 23, 2013 12:00am August 24, 2013 2:08pm Loperamide (18 sources) Opioid Agonist End: 4 loperamide HCl (IMODIUM A-D ORAL) Take by mouth. 11/07/2023 Discontinued loperamide HCl ( IMODIUM A-D ORAL) Take by mouth. 0 Active Comment on above: Take by mouth. 24 hr metoprolol succinate 50 mg extended release oral tablet (20 sources) beta-Adrenergic Janay Start: 01-26-2024 End: 01-26-2024 metoprolol succinate 50 mg oral TABLET extended release Start: 01/26/24 8:00:00 AM EST, Dose = 50 mg, = 1 tab(s), Oral, 01/25/24 3:25:00 EST Start Date: 01/26/24 Stop Date: 01/26/24 Status: Completed Start: 01-25-2024 End: 01-25-2024 metoprolol succinate 50 mg o ral TABLET extended release Start: 01/25/24 8:00:00 AM EST, Dose = 50 mg, = 1 tab(s), Oral, 01/25/24 3:25:00 EST Start Date: 01/25/24 Stop Date: 01/25/24 Status: Completed Start: 01-20-2024 End: 01-20-2024 Toprol-XL Start: 01/20/24 8: 00:00 AM EST, Dose = 25 mg, = 1 tab(s), Oral, give with food/meal, 0, 01/19/24 9:57:00 EST Start Date: 01/20/24 Stop Date: 01/20/24 Status: Completed Start: 01-19-2024 End: 01-19-2024 Toprol-XL Start: 01/19/24 6:0 0:00 PM EST, Dose = 25 mg, = 1 tab(s), Oral, give with food/meal, 0, 01/19/24 9:57:00 EST Start Date: 01/19/24 Stop Date: 01/19/24 Status: Completed Start: 01-19-2024 End: 01-19-2024 Toprol-XL Start: 01/19/24 9:5 7:00 AM EST, Dose = 25 mg, = 1 tab(s), Oral, give with food/meal, 01/19/24 9:57:00 EST Start Date: 01/19/24 Stop Date: 01/19/24 Status: Completed Start: 05-30-2020 End: 05-19-2024 take 1 tablet by mouth once daily Metoprolol Succinate 50 MG tablet Active 50 mg PO DAILY May 30, 2020 12:00am Comment on above: Take 1 tablet by [place] once daily. nystatin [id number] unt/ml topical cream (20 sources) Polyene Antifungal Start: 01-11-2020 End: 07-18-2021 nystatin (NYSTOP) powder Apply 1 application to affected area four times daily. 60 g 3 01/11/2020 07/18/2021 Discontinued Start: 01-07-2020 End: 07-18-2021 nystatin (NYSTOP) powder Ind ications: Intertrigo Apply 1 application to affected area four times daily. 1 Bottle 3 01/07/2020 07/18/2021 Discontinued Start: 12-20-2019 End: 11-07-2023 nystatin (MYCOSTATIN) cream Apply to affected area twice daily. until rash clears then one more week then discontinue 15 g 4 01/04/2022 11/07/2023 Discontinued Comment on above: Apply to affected ar ea twice daily. until rash clears then one more week then discontinue Apply 1 application to affected area four times daily. rifAXIMin 550 mg oral tablet (2 sources) Rifamycin Antibacterial End: 07-19-19 take 1 tablet by mouth twice daily rifAXIMin (XIFAXAN) 550 mg tablet Take 550 mg by mouth twice daily. 0 07/18/2021 Discontinued Comment on above: Take 550 mg by mouth twice daily. triamcinolone acetonide 0.55416 mg/mg topical ointment (20 sources) Corticosteroid Start: 01-16-20 End: 11-07-19 triamcinolone acetonide (KENALOG) 0.1 % cream Indications: Dermatitis Apply 1 application to affected area two times a day as needed (rash on chest and neck). Apply sparingly to area for rash/itching. Up to 2 weeks per rash flare up. 30 g 05/07/2023 11/07/2023 Discontinued Start: 02-07-2021 End: 03-12-2024 triamcinolone (KENALOG) 0.02 5 % ointment Indications: Chronic vaginitis Apply 1 application to affected area twice daily as needed. uses near vaginal area 60 g 1 01/15/2022 03/12/2024 Discontinued Comment on above: Apply 1 application to affected area twice daily as needed. uses near vaginal area Apply 1 application to affected area twice daily as needed (back of neck and chest rash and under breast but avoid skin crease). Apply sparingly to area for rash/itching. Up to 2 weeks per rash flare up. Problems Active Problems Problem Classification Problem Date Documented Da te Episodic/Chronic Acute bronchitis (2 sources) Acute bronchitis; Translations: [Acute bronchitis, unspecified] Onset: 5 06-30-2024 Episodic Acute myocardial infarction (4 sources) Non-ST elevation (NSTEMI) myocardial infarction; Translations: [Myocardial infarction] Onset: 4 Chronic Adjustment disorders (2 sources) Grief finding; Translations: [Adjustment disorder, unspecified] Onset: 5 09-08-2024 Chronic Administrative/social admission (1 source) Bereavement; Translations: [Disappearance and of family member] 07-19-2024 Episodic Allergic reactions (2 sources) Atopic dermatitis; Translations: [Atopic dermatitis, unspecified] Onset: 4 01-27-2024 Chronic Allergic reactions (8 sources) Inflammatory dermatosis; Translations: [Dermatitis, unspecified] Episodic Anxiety disorders (20 sources) Generalized anxiety disorder; Translations: [Generalized anxiety disorder] Chronic Chronic kidney disease (1 source) Chronic kidney disease stage 3B ; Translations: [Stage 3b chronic kidney disease (HCC)] 09-08-2024 Chronic Chronic kidney disease (1 source) Chronic kidney disease; Translations: [Stage 3b chronic kidney disease (HCC)] Onset: 5 Coronary atherosclerosis and other heart disease (20 sources) Coronary atherosclerosis; Translations: [Atherosclerotic heart disease of [place] coronary artery without angina pectoris] Onset: 4 Chronic Diabetes mellitus without complication (2 sources) Impaired fasting glycemia; Translations: [Impaired fasting glucose] Onset: 5 09-08-2024 Episodic Disorders of lipid metabolism (20 sources) Pure hypercholesterolemia; Translations: [Pure hypercholesterolemia, unspecified] Onset: 5 Chronic Esophageal disorders (1 source) Gastroesophageal reflux disease without esophagitis; Translations: [Gastro-esophageal reflux disease without esophagitis] 02-23-2024 Chronic Essential hypertension (20 sources) Essential hypertension; Translations: [Essential (primary) hypertension] Onset: 5 Chronic Genitourinary symptoms and ill-defined conditions (20 sources) Mixed urinary incontinence; Translations: [Mixed incontinence] Onset: 6 07-13-2015 Chronic Heart valve disorders (4 sources) Aortic valve regurgitation; Translations: [Nonrheumatic aortic (valve) insufficiency] 02-20-2024 Chronic Hypertension with complications and secondary hypertension (3 sources) Hypertensive emergency; Translations: [Hypertensive emergency] Onset: 4 01-18-2024 Chronic Immunizations and screening for infectious disease (3 sources) Needs influenza immunization; Translations: [Encounter for immunization] 11-02-2022 Episodic Inflammatory diseases of female pelvic organs (1 source) Chronic vaginitis; Translations: [Subacute and chronic vaginitis] Episodic Malaise and fatigue (3 sources) Fatigue; Translations: [Other fatigue] Onset: 5 09-09-2024 Episodic Menopausal disorders (1 source) Atrophy of vagina; Translations: [Postmenopausal atrophic vaginitis] 11-02-2022 Chronic Mood disorders (20 sources) Recurrent major depression in partial remission; Translations: [Major depressive disorder, recurrent, in partial remission] Onset: 8 Chronic Nutritional deficiencies (20 sources) Vitamin D deficiency; Translations: [Vitamin D deficiency, unspecified] Onset: 7 07-16-2016 Chronic Osteoarthritis (20 sources) Degenerative joint disease involving multiple joints; Translations: [Polyosteoarthritis, unspecified] 12-13-2014 Chronic Other aftercare (1 source) Patient encounter status; Translations: [Other usp (current) drug therapy] 05-07-2023 Episodic Other aftercare (1 source) Long-term current use of drug therapy; Translations: [Other keno terminal operator (current) drug therapy] 05-11-2024 Episodic Other aftercare (1 source) Long-term current use of anticoagulant; Translations: [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] 05-11-2024 Episodic Other bone disease and musculoskeletal deformities (20 sources) Osteopenia; Translations: [Other specified disorders of bone density and structure, unspecified site] 03-18-2017 Episodic Other circulatory disease (10 sources) History of angioplasty; Translations: [Peripheral vascular angioplasty status with implants and grafts] Onset: 5 01-27-2024 Chronic Other circulatory disease (1 source) Peripheral vascular angioplasty status with implants and grafts; Translations: [S/P angioplasty with stent] Onset: 4 Chronic Other circulatory disease (2 sources) H/O: heart disorder; Translations: [Personal history of other diseases of the circulatory system] 02-02-2024 Episodic Other connective tissue disease (20 sources) Fibromyalgia; Translations: [Fibromyalgia] 04-14-2015 Episodic Other female genital disorders (1 source) Burning sensation of vagina; Translations: [Unspecified condition associated with female genital organs and menstrual cycle] 11-02-2022 Episodic Other gastrointestinal disorders (1 source) Irritable bowel syndrome with diarrhea; Translations: [Irritable bowel syndrome with diarrhea] Chronic Other gastrointestinal disorders (1 source) Smearing feces; Translations: [Fecal smearing] Episodic Other inflammatory condition of skin (1 source) Intertrigo; Translations: [Erythema intertrigo] Episodic Other injuries and conditions due to external causes (2 sources) Closed injury of head; Translations: [Unspecified injury of head, initial encounter] 05-31-2020 Episodic Other lower respiratory disease (3 sources) Cough; Translations: [Acute cough] 03-12-2024 Episodic Other lower respiratory disease (1 source) Wheezing; Translations: [Wheezing] 06-30-2024 Episodic Other lower respiratory disease (3 sources) Dyspnea on exertion; Translations: [Other forms of dyspnea] 09-07-2024 Episodic Other lower respiratory disease (1 source) Wheezing; Translations: [Wheezing] Onset: Episodic Other lower respiratory disease (2 sources) Other forms of dyspnea; Translations: [Other forms of dyspnea] Onset: Episodic Other nervous system disorders (1 source) Chronic pain; Translations: [Other chronic pain] Chronic Other non-traumatic joint disorders (1 source) Hip pain; Translations: [Pain in right hip] 05-11-2024 Episodic Other nutritional; endocrine; and metabolic disorders (1 source) Unintentional weight loss; Translations: [Abnormal weight loss] 09-08-2024 Episodic Other nutritional; endocrine; and metabolic disorders (1 source) Abnormal weight loss; Translations: [Unintentional weight loss] Onset: Episodic Other screening for suspected conditions (not mental disorders or infectious disease) (4 sources) Electrocardiogram abnormal; Translations: [Abnormal electrocardiogram [ECG] [EKG]] Onset: 01-18-2024 Episodic Other skin disorders (20 sources) Lichen sclerosus et atrophicus; 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 Other upper respiratory infections (1 source) Acute sinusitis; Translations: [Acute sinusitis, unspecified] 03-12-2024 Episodic Residual codes; unclassified (1 source) Insomnia; Translations: [Other insomnia] 11-07-2023 Chronic Residual codes; unclassified (1 source) Bilateral lower limb edema; Translations: [Localized edema] 05-11-2024 Episodic Superficial injury; contusion (4 sources) Contusion of eyeball and orbital tissues, left eye, initial encounter; Translations: [Periorbital contusion of left eye] 05-31-2020 Episodic Unclassified (1 source) Acute cough; Translations: [Acute cough] Onset: Past or Other Problems Problem Classification Problem Date Documented Da te Episodic/Chronic Miscellaneous mental health disorders (2 sources) Acute insomnia; Translations: [Adjustment insomnia] Onset: 10-16-2004 09-08-2024 Episodic Nonspecific chest pain (5 sources) Cardiac chest pain; Translations: [Chest pain] Onset: 04-14-2024 01-18-2024 Episodic Other aftercare (1 source) Other keno terminal operator (current) drug therapy; Translations: [Encounter for long-term current use of medication] Onset: 11-07-2023 Episodic Residual codes; unclassified (20 sources) Insomnia; Translations: [Insomnia, unspecified] Onset: 10-16-2004 10-16-2004 Episodic Results Test Name Value Interpretation Reference Range Facility [facility] 09-08-2024 CNOV Office Visit (INTMWS ) -- KALINA RUDD ([id number]) 1940 F [facility] Date Time Provider Department 09/08/24 2:00 PM NELLI REYES During your visit today, we recorded the following information about you: Pulse Respiration Blood pressure Weight 68/minute 16/minute 128/72 58.9 kg Nelli Reyes APRN.[facility] [employer] 09/08/2024 3:36 PM Signed SUBJECTIVE Kalina Rudd is a 84 year old female here today for a check up on her medical problems. Chief Complaint Patient presents with: Recheck: Follow up, review labs. depression HPI Kalina Rudd is a 84-year-old female, with a history of CA and recent bereavement, presenting with fatigue, weight loss, and depression. Kalina reports significant fatigue, weight loss, and depression following the recent of her , to whom she was for 66 years. She has lost 10 lbs since May and attributes this to decreased appetite and inadequate hydration. She has started drinking Boost nutritional shakes to improve her intake but expresses concern about gaining weight. She reports consuming 2-3 bottles of water daily and occasionally drinking soda with meals. She denies eating three meals a day, typically consuming two, and has recently added Boost shakes to her diet. Kalina has a history of CA in January, for which she had three stents placed. She reports not feeling well since the CA and has an upcoming echocardiogram scheduled for September 28. She also reports bubbly urine and wonders if it is related to her antihypertensive medications. She is currently on three antihypertensive medications. Kalina reports poor sleep, stating she does not sleep at night but sleeps during the day. She has altered her medication schedule to accommodate her sleep pattern, taking her first round of pills at 0400 if she is awake and the second round an hour and a half later. She reports that her business applications manager noted elevated thyroid levels and suggested that treatment might improve her energy levels. She also reports that her business applications manager noted signs of depression, anxiety, and dehydration. Kalina reports a history of anxiety and describes herself as a worrier. She has not sought counseling but mentions that her business applications manager recommended it. She has a son in [place] with whom she had a recent disagreement, leading to feelings of isolation. She has another son and a grandson locally, with whom she maintains regular contact. She expresses feelings of sadness and depression, stating, I'm so depressed, it's awful. Recording using [employer] software for draft documentation of the visit was discussed with the patient/authorized claims customer service representative; all questions welcomed and answered. Patient/authorized claims customer service representative agreed to proceed Her medications were reviewed today and her list is now up to date. Medications Current Outpatient Medications Medication Sig mirtazapine (REMERON) 15 mg tablet Take 1 tablet by mouth daily at bedtime. albuterol HFA (PROVENTIL HFA, VENTOLIN HFA) 90 mcg/actuation inhaler Inhale 2 puffs as instructed every 4 hours as needed for wheezing/shortness of breath. rosuvastatin (CRESTOR) 20 mg tablet Take 1 tablet by mouth daily at bedtime. clopidogrel (PLAVIX) 75 mg tablet Take 1 tablet by mouth once daily. isosorbide mononitrate ER (IMDUR) 30 mg 24 hr tablet Take 1 tablet by mouth once daily. Before a meal DULoxetine (CYMBALTA) 60 mg capsule Take 1 capsule by mouth once daily. amLODIPine (NORVASC) 10 mg tablet Take 1 tablet by mouth once daily. [facility]. gabapentin (NEURONTIN) 300 mg capsule Take 1 capsule by mouth three times a day. omeprazole (PRILOSEC) 40 mg capsule Take 1 capsule by mouth once daily. aspirin, enteric coated (ASPIRIN, ENTERIC COATED) 81 mg EC tablet Take 1 tablet by mouth every afternoon. losartan (COZAAR) 50 mg tablet Take 1 tablet by mouth once daily. metoprolol succinate ER (TOPROL XL) 50 mg 24 hr tablet Take 1 tablet by mouth once daily. crisaborole 2 % Apply to affected area two times a day. Apply a thin film to affected area(s) 2 times daily estradiol (ESTRACE) 0.01 % (0.1 mg/gram) vaginal cream Apply to urethral opening for atrophic vaginitis. Two to three times a week. Miscellaneous [facility] probiotics--Yeast and Vaginal PH support probiotic. Probiotic blend. Takes 1 by mouth at bedtime dorzolamide HCl/PF (DORZOLAMIDE, PF,) 2 % drop Use 1 Drop in eyes three times daily. glycerin-min oil-polycarbophil (REPLENS) gel Uses Replens cream 3 times weekly COMPOUNDED PRESCRIPTION Massage therapy Dx: Fibromyalgia, Arthritis No current facility-administered medications for this visit. ALLERGIES Allergen Reactions Amitriptyline Other: See Comments Could not urinate Codeine chest pain Sulfa (Sulfonamide * Hives, Swelling, Itching Trazodone vivid dreams ACTIVE PROBLEM LIST (more content not included)... Normal [facility] Absolute lymphocyte countOrd ered By: Joanne Apple on 09-07-2024 Lymphocytes Auto (Unsp spec) [#/Vol] 2.46 10*3/uL 0.83-4.51 [facility] Absolute neutrophil countOrd ered By: Joanne Apple on 09-07-2024 Neutrophils (Bld) [#/Vol] 6.3 10*3/uL 2.0-7.7 [facility] Anion gap in Serum or Plasma Ordered By: Joanne Apple on 09-07-2024 Anion gap [Moles/Vol] 14 mmol/L 5- [facility] Automated lymphocyte count a s percentage of total leukocytesOrdered By: Joanne Apple on 09-07-2024 Lymphocytes/100 WBC Auto (Unsp spec) 25.5 % - [facility] BUN/creatinine ratioOrdered By: Joanne Apple on 09-07-2024 Urea nitrogen/Creatinine [Mass ratio] 19.9 mg/mg 10- [facility] Basic Metabolic Profile (BMP )on 09-07-2024 BUN/CRE 19.9 RATIO Normal - [facility] Comment on above: Performed By: #### L 501.9520, L500.2500, L503.7505, L100.0100 #### [facility] [address] [place], [address] Calcium [Mass/Vol] 10.3 mg/dL Normal 7.6-11.0 [facility] Comment on above: Performed By: #### L 501.9520, L500.2500, L503.7505, L100.0100 #### [facility] [address] [place], [address] Chloride [Moles/Vol] 103 mmol/L Normal 98-108 [facility] Comment on above: Performed By: #### L 501.9520, L500.2500, L503.7505, L100.0100 #### [facility] [address] [place], [address] CO2 [Moles/Vol] 21.1 mmol/L Normal 21.0-32.0 [facility] Comment on above: Performed By: #### L 501.9520, L500.2500, L503.7505, L100.0100 #### [facility] [address] [place], [address] Creatinine [Mass/Vol] 1.41 mg/dL High 0.70-1.20 [facility] Comment on above: Performed By: #### L 501.9520, L500.2500, L503.7505, L100.0100 #### [facility] [address] [place], [address] GAP 14 Normal 5-15 [facility] Comment on above: Performed By: #### L 501.9520, L500.2500, L503.7505, L100.0100 #### [facility] [address] [place], [address] GFR/1.73 sq M.predicted among non-blacks MDRD (S/P/Bld) [Vol rate/Area] 37 mL/min/{1.73_m2} Low >60 [facility] Comment on above: Result Comment: mL/m in/1.73m2 CKD-EPI Creatinine Equation (2020) Performed By: #### L 501.9520, L500.2500, L503.7505, L100.0100 #### [facility] [address] [place], [address] Glucose [Mass/Vol] 120 mg/dL High 70-99 [facility] Comment on above: Performed By: #### L 501.9520, L500.2500, L503.7505, L100.0100 #### [facility] [address] [place], [address] Potassium [Moles/Vol] 4.9 mmol/L Normal 3.3-5.1 [facility] Comment on above: Performed By: #### L 501.9520, L500.2500, L503.7505, L100.0100 #### [facility] [address] [place], [address] Sodium [Moles/Vol] 138 mmol/L Normal 133-145 [facility] Comment on above: Performed By: #### L 501.9520, L500.2500, L503.7505, L100.0100 #### [facility] [address] [place], [address] Urea nitrogen [Mass/Vol] 28 mg/dL High 4-19 [facility] Comment on above: Performed By: #### L 501.9520, L500.2500, L503.7505, L100.0100 #### [facility] [address] [place], [address] Basophil percentageOrdered B y: Joanne Apple on 09-07-2024 Basophils/100 WBC (Bld) 0.5 % 0-1 [facility] CBC W/Diff, Automatedon 08-11 Absolute Lymph 2.46 X10 3/uL Normal 0.83-4.51 [facility] Comment on above: Performed By: #### L 501.9520, L500.2500, L503.7505, L100.0100 #### [facility] [address] [place], [address] Absolute Neut 6.3 X10 3/uL Normal 2.0-7.7 [facility] Comment on above: Performed By: #### L 501.9520, L500.2500, L503.7505, L100.0100 #### [facility] [address] [place], [address] Basophils/100 WBC (Bld) 0.5 % Normal 0-1 [facility] Comment on above: Performed By: #### L 501.9520, L500.2500, L503.7505, L100.0100 #### [facility] [address] [place], [address] Eosinophils/100 WBC (Bld) 1.8 % Normal 0-5 [facility] Comment on above: Performed By: #### L 501.9520, L500.2500, L503.7505, L100.0100 #### [facility] [address] [place], [address] Erythrocyte distribution width (RBC) [Ratio] 13.4 % Normal 11.6-14.6 [facility] Comment on above: Performed By: #### L 501.9520, L500.2500, L503.7505, L100.0100 #### [facility] [address] [place], [address] Hematocrit (Bld) [Volume fraction] 42.4 % Normal 37-47 [facility] Comment on above: Performed By: #### L 501.9520, L500.2500, L503.7505, L100.0100 #### [facility] [address] [place], [address] Hemoglobin (Bld) [Mass/Vol] 13.9 g/dL Normal 12.0-15.0 [facility] Comment on above: Performed By: #### L 501.9520, L500.2500, L503.7505, L100.0100 #### [facility] [address] [place], [address] IG% 0.300 Normal 0.0-0.9 [facility] Comment on above: Result Comment: IG% - Immature Granulocytes (promyelocytes, myelocytes and metamyelocytes) > 1% indicates that a LEFT SHIFT is Present. Performed By: #### L 501.9520, L500.2500, L503.7505, L100.0100 #### [facility] [address] [place], [address] Lymphocytes/100 WBC (Bld) 25.5 % Normal 19-41 [facility] Comment on above: Performed By: #### L 501.9520, L500.2500, L503.7505, L100.0100 #### [facility] [address] [place], [address] MCH (RBC) [Entitic mass] 29.8 pg Normal 27.0-32.0 [facility] Comment on above: Performed By: #### L 501.9520, L500.2500, L503.7505, L100.0100 #### [facility] [address] [place], [address] MCHC (RBC) [Mass/Vol] 32.8 g/dL Normal 32-36 [facility] Comment on above: Performed By: #### L 501.9520, L500.2500, L503.7505, L100.0100 #### [facility] [address] [place], [address] MCV (RBC) [Entitic vol] 91.0 fL Normal 81-99 [facility] Comment on above: Performed By: #### L 501.9520, L500.2500, L503.7505, L100.0100 #### [facility] [address] [place], [address] Monocytes/100 WBC (Bld) 6.9 % Normal 0-10 [facility] Comment on above: Performed By: #### L 501.9520, L500.2500, L503.7505, L100.0100 #### [facility] [address] [place], [address] Neutrophils/100 WBC (Bld) 65.0 % Normal 47-70 [facility] Comment on above: Performed By: #### L 501.9520, L500.2500, L503.7505, L100.0100 #### [facility] [address] [place], [address] Nucleated RBC (Bld) [#/Vol] 0 10*3/uL Normal 0-5 [facility] Comment on above: Performed By: #### L 501.9520, L500.2500, L503.7505, L100.0100 #### [facility] [address] [place], [address] Platelet mean volume (Bld) [Entitic vol] 10.1 fL Normal 6.2-12.0 [facility] Comment on above: Performed By: #### L 501.9520, L500.2500, L503.7505, L100.0100 #### [facility] [address] [place], [address] Platelets (Bld) [#/Vol] 299 10*3/uL Normal 150-450 [facility] Comment on above: Performed By: #### L 501.9520, L500.2500, L503.7505, L100.0100 #### [facility] [address] [place], [address] RBC (Bld) [#/Vol] 4.66 10*6/uL Normal 4.2-5.4 [facility] Comment on above: Performed By: #### L 501.9520, L500.2500, L503.7505, L100.0100 #### [facility] [address] [place], [address] RDW SD 45.6 fl High 35.1-43.9 [facility] Comment on above: Performed By: #### L 501.9520, L500.2500, L503.7505, L100.0100 #### [facility] [address] [place], [address] WBC (Bld) [#/Vol] 9.7 10*3/uL Normal 4.4-11.0 [facility] Comment on above: Performed By: #### L 501.9556, L500.2500, L503.7505, L100.0100 #### [facility] [address] [place], [address] Carbon dioxide, total [Moles /volume] in Central venous bloodOrdered By: Joanne Apple on 09-07-2024 CO2 [Moles/Vol] 21.1 mmol/L 21.0-32.0 [facility] Cardiology Visit Reporton Cardiology Visit Report [facility] [address] [place] [address] OFFICE VISIT Date of Service: 09/07/24 MR#: [id number] Acct: [id number] Name: KALINA RUDD Rep #: [id number] : 1940 Provider: MEG phan Age/Sex: 84/F Location: [facility] Status: Signed HPI HPI History of Present Illness Details: This is a 84-year-old white female who presents to the office today for a cardiovascular follow-up visit. The patient originally presented [facility] with a STEMI on 01/19/2024 and she is underwent emergent left heart catheterization and was life lighted to [facility] for emergent percutaneous revascularization due to the complex nature of her anatomy. She received an LAD stent a bifurcating circumflex OM stent in the residual diagonal branch with 70% stenosis was treated medically. Her ejection fraction the day after was found to be 55-60%. Following discharge the patient returns the emergency department on 2 separate occasions once at [facility] and once at [facility] with a hypertensive urgency. Her medications were adjusted which she remains extremely confused about. The patient carries a longstanding history of fibromyalgia which is chronic back discomfort. She also has left shoulder pain. She does not remember what her symptoms felt like when she presented with her STEMI. She states her just recently in June. From a cardiac standpoint, the patient is doing well. She denies any palpitations, chest pain, pressure or heaviness. She does acknowledge SOB with minimal exertion. She denies Orthopnea, and PND. She does not have bleeding issues; no blood in urine, stool, or nosebleeds. She does acknowledge a decrease in energy level, she states that she has been sleeping more during the day. She denies myalgias, or claudication. She does not have edema, or sudden weight gain. She does have occasional lightheadedness with quick positional changes. She denies dizziness, syncopal or near syncopal episodes, and headaches. Intake Vital Signs 04/14/24 08:50 09/07/24 08:12 Height 5 ft 2 in 5 ft 2 in Weight: 129 lb BMI 23.6 BP 136/55 H Blood Pressure Location Lt brachial Position Sitting Respiration 18 Pulse 73 Pulse Source Monitor Intake Visit Reasons: See clinical notes Jadiel (KR approved) Rail Bonder Required: No Accompanied by: Self Is patient in pain?: No Allergies amitriptyline Allergy (Verified 09/07/24 08:18) Unknown codeine Allergy (Verified 09/07/24 08:18) Chest tightness trazodone Allergy (Verified 09/07/24 08:18) Other Medications ???Medication ???Instructions ???Recorded ???Confirmed ???Type Omeprazole [Prilosec] 40 mg PO DAILY 08/23/13 09/07/24 H istory duloxetine 60 mg capsule,delayed 60 mg PO DAILY 08/23/13 09/07/24 H istory release metoprolol succinate 50 mg 50 mg PO DAILY 05/30/20 09/07/24 H istory tablet,extended release 24 hr aspirin 81 mg tablet,delayed 81 mg PO DAILY 01/24/24 09/07/24 H istory release clopidogrel 75 mg tablet 75 mg PO DAILY 01/24/24 09/07/24 H istory dorzolamide 2 % eye drops 1 drp ophthalmic (eye) TID 4 09/07/24 History rosuvastatin 20 mg tablet 20 mg PO QHS 01/24/24 09/07/24 His tory amlodipine 10 mg tablet 10 mg PO QDAY #30 tabs 02/20/24 Rx isosorbide mononitrate 30 mg 30 mg PO QDAY 02/20/24 09/07/24 Hi story tablet,extended release 24 hr losartan 50 mg tablet 50 mg PO QDAY 02/20/24 09/07/24 Hi story gabapentin 300 mg capsule 300 mg PO TIDCM 09/07/24 09/07/24 History Have you fallen in the past year?: Yes (1 fall, don't remember what happened) PFSH Medical History (Reviewed 09/07/24 @ 08:17 by Joanne Apple DISASTER RESPONSE DIRECTOR, DISASTER RESPONSE DIRECTOR-C) History of left heart catheterization STEMI (ST elevation myocardial infarction) Acute coronary syndrome Fibromyalgia HTN (hypertension) Surgical History (Reviewed 09/07/24 @ 08:17 by Joanne Apple DISASTER RESPONSE DIRECTOR, DISASTER RESPONSE DIRECTOR-C) History of cholecystectomy History of coronary artery stent placement Family History (Reviewed 09/07/24 @ 08:17 by Joanne Apple DISASTER RESPONSE DIRECTOR, DISASTER RESPONSE DIRECTOR-C) Father Hypertension Hx of CABG Social History Smoking Status: Never smoker alcohol intake: never substance use type: does not use caffeine: No ROS Const Const: Positive for fatigue; Negative for weakness, fever(s), headache(s), chills, frequent falls, weight gain or weight loss Eyes Eyes: Negative for blind spots, loss of peripheral vision, transient loss of vision, blurry vision, change in vision, double vision, floaters or tunnel vision ENT ENT: Negative for headache(s), dizziness, Nosebleed/epistaxis, balance problems or neck pain Cardio Chest Pain: No Palpitations: No Edema: None Muscle ache (more content not included)... Normal [facility] Chloride assayOrdered By: Keegan Apple on 09-07-2024 Chloride [Moles/Vol] 103 mmol/L 98-[facility] [facility] Eosinophil percentageOrdered By: Joanne Apple on 09-07-2024 Eosinophils/100 WBC (Bld) 1.8 % 0-5 [facility] Erythrocyte distribution wid th ratioOrdered By: Joanne Apple on 09-07-2024 Erythrocyte distribution width (RBC) [Ratio] 13.4 % 11.6-14.6 [facility] Erythrocyte distribution wid th standard deviationOrdered By: Joanne Apple on 09-07-2024 Erythrocyte distribution width (RBC) [Ratio] 45.6 fl High 35.1-43.9 [facility] Glomerular filtration rate ( GFR) estimation/1.73 sq m using serum, plasma, or whole bOrdered By: Joanne Apple on 09-07-2024 GFR/1.73 sq M.predicted among non-blacks MDRD (S/P/Bld) [Vol rate/Area] 37 mL/min/{1.73_m2} Low >60 [facility] Comment on above: mL/min/1.73m2 CKD-EP I Creatinine Equation (2020) Hematocrit Auto (Bld) [Volum e fraction]Ordered By: Joanne Apple on 09-07-2024 Hematocrit (Bld) [Volume fraction] 42.4 % 37-47 [facility] Hemoglobin measurementOrdere d By: Joanne Apple on 09-07-2024 Hemoglobin (Bld) [Mass/Vol] 13.9 g/dL 12.0-15.0 [facility] Immature granulocytes/100 WB C Auto (Bld)Ordered By: Joanne Apple on 09-07-2024 Immature granulocytes/100 WBC (Bld) 0.300 % 0.0-0.9 [facility] Comment on above: IG% - Immature Granu locytes (promyelocytes, myelocytes and metamyelocytes) > 1% indicates that a LEFT SHIFT is Present. MCV (mean corpuscular volume ) determinationOrdered By: Joanne Apple on 09-07-2024 MCV (RBC) [Entitic vol] 91.0 fL 81-99 [facility] Mean corpuscular hemoglobin (MCH) determinationOrdered By: Joanne Apple on 09-07-2024 MCH (RBC) [Entitic mass] 29.8 pg 27.0-32.0 [facility] Mean corpuscular hemoglobin concentration (MCHC) determinationOrdered By: Joanne Apple on 09-07-2024 MCHC (RBC) [Mass/Vol] 32.8 g/dL 32-36 [facility] Mean platelet volume determi nationOrdered By: Joanne Apple on 09-07-2024 Platelet mean volume (Bld) [Entitic vol] 10.1 fL 6.2-12.0 [facility] Monocyte percentageOrdered B y: Joanne Apple on 09-07-2024 Monocytes/100 WBC (Bld) 6.9 % 0-10 [facility] Natriuretic peptide.B prohor cheryl N-Terminal [Mass/volume] in Serum or PlasmaOrdered By: Joanne Apple on 09-07-2024 Natriuretic peptide.B prohormone N-Terminal [Mass/Vol] 258 pg/mL <1800 [facility] Comment on above: Heart Failure Unlike ly: < 300 pg/mLHeart Failure Likely< 50 Years: > 450 pg/mL50-75 Years: > 900 pg/mL>75 Years: > 1800 pg/mL Neutrophil percentageOrdered By: Joanne Apple on 09-07-2024 Neutrophils/100 WBC (Bld) 65.0 % 47-70 [facility] Nucleated red blood cell per centageOrdered By: Joanne Apple on 09-07-2024 Nucleated RBC/100 WBC (Bld) [Ratio] 0 % 0-5 [facility] Platelet countOrdered By: Keegan Apple on 09-07-2024 Platelets (Bld) [#/Vol] 299 10*3/uL 150-450 [facility] Potassium measurement (mass/ volume)Ordered By: Joanne Apple on 09-07-2024 Potassium (Unsp spec) [Mass/Vol] 4.9 mmol/L 3.3-5.1 [facility] Pro- Brain NATRIURETIC PEPTI David 09-07-2024 Natriuretic peptide B (Bld) [Mass/Vol] 258 pg/mL Normal <=1800 [facility] Comment on above: Result Comment: Hear t Failure Unlikely: < 300 pg/mL Heart Failure Likely < 50 Years: > 450 pg/mL 50-75 Years: > 900 pg/mL >75 Years: > 1800 pg/mL Performed By: #### L 501.9520, L500.2500, L503.7505, L100.0100 #### [facility] [address] [facility] [place], [address] RBC Auto (Bld) [#/Vol]Ordere d By: Joanne Apple on 09-07-2024 RBC (Bld) [#/Vol] 4.66 10*6/uL 4.2-5.4 [facility] Serum creatinine measurement (mass/volume)Ordered By: Joanne Apple on 09-07-2024 Creatinine [Mass/Vol] 1.41 mg/dL High 0.70-1.20 [facility] Serum glucose measurement (m ass/volume)Ordered By: Joanne Apple on 09-07-2024 Glucose [Mass/Vol] 120 mg/dL High 70-99 [facility] Serum or plasma calcium marietta urement (mass/volume)Ordered By: Joanne Apple on 09-07-2024 Calcium [Mass/Vol] 10.3 mg/dL 7.6-11.0 [facility] Serum or plasma urea nitroge n measurement (mass/volume)Ordered By: Joanne Apple on 09-07-2024 Urea nitrogen [Mass/Vol] 28 mg/dL High 4-19 [facility] Sodium levelOrdered By: Suzie Apple on 09-07-2024 Sodium [Moles/Vol] 138 mmol/L 133-145 [facility] TSH DL <= 0.005 mIU/L QnOrde red By: Joanne Apple on 09-07-2024 TSH Qn 4.350 uIU/mL High 0.300-4.200 [facility] Thyroid Stim Hormone (TSH)on 09-07-2024 TSH 4.350 uIU/mL High 0.300-4.200 [facility] Comment on above: Performed By: #### L 501.9520, L500.2500, L503.7505, L100.0100 #### [facility] [address] [place], [address] White blood cell (WBC) count Ordered By: Joanne Apple on 09-07-2024 WBC (Bld) [#/Vol] 9.7 10*3/uL 4.4-11.0 [facility] CNOVon 06-30-2024 CNOV Office Visit (INTMWS ) -- KALINA RUDD ([id number]) 1940 F T Date Time Provider Department 06/30/24 4:00 PM KAREN RESENDIZ INTMWS During your visit today, we recorded the following information about you: Temperature Pulse Blood pressure 98.2 degrees 74/minute 122/62 Karen Resendiz MD 07/19/2024 1:01 AM Signed This note was created using ENDOGENXriter. Subjective Kalina Rudd is a 84 year old female. Patient presents with: Cough: Since Friday. Lost 2 weeks ago. Kalina is a 84-year-old female, with a history of cardiac issues, presenting with a persistent cough and wheezing. Kalina reports onset of a cough and wheezing on Friday, following exposure to a sick contact. Symptoms are worse at night, causing difficulty sleeping. During the day, symptoms are less severe when she is sitting quietly, but she experiences dyspnea and increased coughing with ambulation. She denies fevers or chills, but notes episodes of diaphoresis and feeling cold. She is currently under the care of a business applications manager and reports stable cardiac status, with her next appointment scheduled for October. Kalina is also coping with the recent loss of her , to whom she was for 66 years. She expresses significant emotional distress, stating, I don't know how I'm going to live, but I have to. She has a support system of family and friends, many of whom are widows, and finds some solace in the fact that her did not suffer. She is planning to visit his resting place and is looking forward to spending time with her son, who is visiting this week. PAST MEDICAL HISTORY Diagnosis Date Dysthymic disorder Depression (non-psychotic) Essential hypertension, benign Generalized anxiety disorder Anxiety, Generalized Generalized osteoarthrosis, unspecified site Lichen sclerosus Myalgia and myositis, unspecified OSTEOPOROSIS NOS Osteoporosis, unspecified STEMI (ST elevation myocardial infarction) ([facility]) 01/19/2024 Current Outpatient Medications Medication Sig albuterol HFA (PROVENTIL HFA, VENTOLIN HFA) 90 mcg/actuation inhaler Inhale 2 puffs as instructed every 4 hours as needed for wheezing/shortness of breath. benzonatate (TESSALON PERLE) 100 mg capsule Take 1 capsule by mouth three times a day as needed for cough. rosuvastatin (CRESTOR) 20 mg tablet Take 1 tablet by mouth daily at bedtime. clopidogrel (PLAVIX) 75 mg tablet Take 1 tablet by mouth once daily. isosorbide mononitrate ER (IMDUR) 30 mg 24 hr tablet Take 1 tablet by mouth once daily. Before a meal DULoxetine (CYMBALTA) 60 mg capsule Take 1 capsule by mouth once daily. amLODIPine (NORVASC) 10 mg tablet Take 1 tablet by mouth once daily. [facility]. gabapentin (NEURONTIN) 300 mg capsule Take 1 capsule by mouth three times a day. omeprazole (PRILOSEC) 40 mg capsule Take 1 capsule by mouth once daily. aspirin, enteric coated (ASPIRIN, ENTERIC COATED) 81 mg EC tablet Take 1 tablet by mouth every afternoon. losartan (COZAAR) 50 mg tablet Take 1 tablet by mouth once daily. metoprolol succinate ER (TOPROL XL) 50 mg 24 hr tablet Take 1 tablet by mouth once daily. crisaborole 2 % Apply to affected area two times a day. Apply a thin film to affected area(s) 2 times daily estradiol (ESTRACE) 0.01 % (0.1 mg/gram) vaginal cream Apply to urethral opening for atrophic vaginitis. Two to three times a week. M[employer]ellaneous [facility] [employer] [facility] probiotics--Yeast and Vaginal PH support probiotic. Probiotic blend. Takes 1 by mouth at bedtime dorzolamide HCl/PF (DORZOLAMIDE, PF,) 2 % drop Use 1 Drop in eyes three times daily. glycerin-min oil-polycarbophil (REPLENS) gel Uses Replens cream 3 times weekly COMPOUNDED PRESCRIPTION Massage therapy Dx: Fibromyalgia, Arthritis No current facility-administered medications for this visit. Review of Systems Objective BP 122/62 Pulse 74 Temp 36.8 ?C (98.2 ?F) (Tympanic) SpO2 97% Physical Exam Constitutional: Appearance: Normal appearance. HENT: Head: Normocephalic. Eyes: Conjunctiva/sclera: Conjunctivae normal. Cardiovascular: Rate and Rhythm: Normal rate and regular rhythm. Heart sounds: Normal heart sounds. Comments: Mild posterior ankle swelling, 1+ Pulmonary: Effort: Pulmonary effort is normal. Comments: Few scattered crackles and low pitched wheeze posteriorly Skin: General: Skin is warm and dry. Neurological: General: No focal deficit present. Mental Status: She is alert and oriented to person, place, and time. Psychiatric: Mood and Affect: Mood normal. Behavior: Behavior normal. Thought Content: Thought content normal. Judgment: Judgment normal. Assessment and Plan # Acute bronchitis, unspecified organism (J20.9) # Wheezing (R06.2) # Acute cough (R05.1) - Onset of symptoms began on Friday, with worsening cough and wheezing at nig (more content not included)... Normal [facility] CNOVon 05-11-2024 CNOV Office Visit (INTMWS ) -- TOBINKALINA Mcgee ([id number]) 1940 F [facility] Date Time Provider Department 05/11/24 1:20 PM KAREN RESENDIZ INTMWS During your visit today, we recorded the following information about you: Pulse Respiration Blood pressure Weight 80/minute 16/minute 122/58 63.5 kg Height 1.53 m Karen Resendiz MD 05/11/2024 2:34 PM Signed Kalina Mcgee Tobin is a 83 year old female here for a Medicare wellness visit. Medicare Health Risk Assessment General Health Good Exercise: Minutes/Day 30 min Exercise: Days/Week 7 days Alcohol: Daily Use Never Alcohol: Drinks/Day Patient does not drink Alcohol: 6 or more drinks Never Feel off balance Yes--due to anterior hip pain Concerns: Teeth/Dentures No Concerns: Sexual function No Troubled by feelings Anxious Frequency: Eating healthy diet More than half the days ADLs requiring help None of the above Safety precautions in home/vehicle Yes Smoke, vape, chews tobacco No Difficulty hearing Yes Difficulty seeing No Current Providers Specialists: I have reviewed specialist-related care of the patient in the medical record. Outside specialists seen: [facility] Medical/Family history review Reviewed and updated problem list, medical/surgical/family/so cial history, medications, and allergies. Opioid use review Opioid Medications (last 90 days) No data to display Anxiety/Depression screening Recommendation: no further intervention at this time, continuing current treatment plan, and medication management Cognitive screening Mini Cog Score: 2 Cognitive screening reviewed and Recommended referral for further evaluation (score 0-2). Functional Observation Was the patient's Timed Up AND Go test unsteady or >= 12 seconds? No though antalgic gait due to right anterior medial hip pain Advance Care Planning Surrogate decision maker and/or advance care plan documented Measurements BP 122/58 Pulse 80 Resp 16 Ht 153 cm (5' 0.24) Wt 63.5 kg (139 lb 15.9 oz) BMI 27.13 kg/m? Vision Screening: Follows with optometry/ophthalmology Assessment/Plan Medicare annual wellness visit, subsequent (Z00.00) - Counseled on healthy diet and regular exercise - Fall avoidance information provided - Personalized prevention plan provided wellness Additional Concerns The following concerns were also discussed with the patient: The patient consented to the use of ambient YOUnite software for draft documentation of the visit consistent with [facility]?s Notice of Privacy Practices. Kalina is a 83-year-old female with a history of CA, HTN, and eczema, presenting for a Medicare Annual Wellness Visit. Kalina reports right hip pain that occurs when standing up and walking, but is alleviated by straightening the leg before walking. The pain is located in the anterior groin and buttocks. 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 She finds relief by leaning on a shopping cart while walking. She denies any previous x-rays of her back. She also reports bilateral lower extremity edema, which she attributes to an increased dose of amlodipine from 5 mg to 10 mg. She notes that the edema is less pronounced in the morning but worsens throughout the day. She has been using compression stockings, but finds them ineffective and uncomfortable. She denies any recent chest pain, but experiences dyspnea with excessive housework. She is currently taking 10 mg of amlodipine and has not yet contacted her business applications manager about reducing the dose. She also reports eczema, which she has been treating with tallow, but notes that it is not fully effective. She denies using lotion regularly. She is currently taking clopidogrel, rosuvastatin, isosorbide, duloxetine, metoprolol, gabapentin, losartan, and omeprazole. She has reduced her gabapentin dose from 2 pills TID to 1 pill TID. She denies any issues with constipation or diarrhea, but notes that she sometimes experiences diarrhea after eating salads at restaurants. She also reports difficulty sleeping at night, but sleeps well during the day. She denies any recent falls. She has not yet completed her advance directives, but has designated her as her healthcare proxy. She has not seen her dentist since her CA, but plans to schedule an appointment. She also plans to start walking outside as the weather improves. Constitutional: (+) sleep disturbance Cardiovascular: (-) chest pain, (+) leg swelling Respiratory: (+) shortness of breath with exertion Gastrointestinal: (+) diarrhea after restaurant salads, (-) constipation Musculoskeletal: (+) hip pain, (+) low back pain, (+) leg ?giving out? Skin: (+) dryness, (+) rash on legs BP 122/58 Pulse 80 Resp 16 Ht 153 cm (5' 0.24) Wt 63.5 kg (139 lb 15.9 oz) BMI 27.13 kg/m? (more content not included)... Normal [facility] 12 Lead EKG performed by [facility] on 04-14-2024 12 Lead EKG performed by [address] [address] 12 Lead EKG performed by [facility] 04/14/24 1308 MR#: [id number] Acct: [id number] Name: KALINA RUDD Rep #: [id number] : 1940 83 From: Tessie Doe Attending Dr: MARCUS Antoine Status: DEP [facility] Ordering Dr: Tessie Apple Date: 07/04 Location: [facility] Sex: F C Admitted: [facility]/12 Lead EKG performed by [facility] ECG Report Interpretation Sinus Rhythm Low voltage in precordial leads. -Poor R-wave progression -may be secondary to pulmonary disease consider old anterior infarct. ABNORMAL Electronically signed on 04/15/2024 at 08:15 by Valdemar Kimble Software Version [id number] 04/15/24 0818 Date Tessie VELAZQUEZ CC: Dr. Karen Resendiz MD Date Dictated: 04/14/241307 Date Transcribed: 04/14/241307 Poster: YESENIA Signed Normal [facility] Cardiology Visit Reporton Cardiology Visit Report [facility] [address] [place] [address] OFFICE VISIT Date of Service: 04/14/24 MR#: [id number] Acct: [id number] Name: KALINA RUDD Rep #: [id number] : 1940 Provider: MARCUS Allen Age/Sex: 83/F Location: [facility] Status: Signed HPI HPI History of Present Illness Details: Patient comes in is a 83-year-old white female for monitoring for cardiovascular status. The patient originally presented [facility] with a STEMI on 01/19/2024 and she is underwent emergent left heart catheterization and was life lighted to [facility] for emergent percutaneous revascularization due to the complex nature of her anatomy. She received an LAD stent a bifurcating circumflex OM stent in the residual diagonal branch with 70% stenosis was treated medically. Her ejection fraction the day after was found to be 55-60%. Following discharge the patient returns the emergency department on 2 separate occasions once at [facility] and once at [facility] with a hypertensive urgency. Her medications were adjusted which she remains extremely confused about. The patient carries a longstanding history of fibromyalgia which is chronic back discomfort. She also has left shoulder pain. She does not remember what her symptoms felt like when she presented with her STEMI. She had she was seen in the [facility] cardiology office and is confused about what they told her to do with her meds and was she thought was told that she had an air leak. I believe what she was referring to is an aortic valve regurgitation that is mild to moderate by her echocardiogram done January 20, 2024. Pt continues to have vague chest pain. This has been ongoing for and has not changes. She does have some swelling in her legs. She wonders if this is relate not medications. She does not think that this goes down in the mornings. She does have SOB with exertion but does not feel that this is worse than before. Intake Vital Signs 02/20/24 10:55 04/14/24 08:50 Height 5 ft 2 in 5 ft 2 in Weight: 135 lb 138 lb BMI 24.7 25.2 BP 156/69 H 119/71 Blood Pressure Location Rt brachial Lt brachial Position Sitting Sitting Respiration 18 18 Pulse 63 67 Pulse Source Monitor Monitor Pulse Oximetry (%) 97 99 Oxygen Delivery Method room air Intake Visit Reasons: 2 M FU PER Rail Bonder Required: No Is patient in pain?: No Allergies amitriptyline Allergy (Verified 04/14/24 13:07) Unknown codeine Allergy (Verified 04/14/24 13:07) Chest tightness trazodone Allergy (Verified 04/14/24 13:07) Other Medications ???Medication ???Instructions ???Recorded ???Confirmed ???Type Omeprazole [Prilosec] 40 mg PO DAILY 08/23/13 04/14/24 H istory duloxetine 60 mg capsule,delayed 60 mg PO DAILY 08/23/13 04/14/24 H istory release metoprolol succinate 50 mg 50 mg PO DAILY 05/30/20 04/14/24 H istory tablet,extended release 24 hr aspirin 81 mg tablet,delayed 81 mg PO DAILY 01/24/24 04/14/24 H istory release clopidogrel 75 mg tablet 75 mg PO DAILY 01/24/24 04/14/24 H istory dorzolamide 2 % eye drops 1 drp ophthalmic (eye) TID 4 04/14/24 History rosuvastatin 20 mg tablet 20 mg PO QHS 01/24/24 04/14/24 His tory amlodipine 10 mg tablet 10 mg PO QDAY #30 tabs 02/20/24 Rx gabapentin 300 mg capsule 600 mg PO TIDCM 02/20/24 04/14/24 History isosorbide mononitrate 30 mg 30 mg PO QDAY 02/20/24 04/14/24 Hi story tablet,extended release 24 hr losartan 50 mg tablet 50 mg PO QDAY 02/20/24 04/14/24 Hi story Ejection fraction %: 60 Have you fallen in the past year?: Yes Nurse's Note: patient does not have updated medication list, she does not know what she is taking, she is asked to call with updated list of medications [facility] Medical History (Updated 04/14/24 @ 13:10 by Zoey Jay) History of left heart catheterization STEMI (ST elevation myocardial infarction) Acute coronary syndrome Fibromyalgia HTN (hypertension) Surgical History (Updated 04/14/24 @ 14:10 by Tessie Apple PA, PA) History of cholecystectomy History of coronary artery stent placement Family History Father Hypertension Hx of CABG Social History Smoking Status: Never smoker alcohol intake: never substance use type: does not use caffeine: No ROS Const Const: Positive for fatigue, weakness and headache(s); Negative for frequent falls Eyes Eyes: Negative for blurry vision ENT ENT: Positive for headache(s) and dizziness; Negative for Nosebleed/epistaxis Cardio Chest Pain: Yes Palpitations: Yes Edema: Bilateral and None Muscle aches with walking: None (more content not included)... 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 BORDERLINEElectronically signed on 03/29/2024 at 09:[address] Kenny Chaudhary Software Version [id number] 03/29/24 0952 Date Joel WEAVER CC: Dr. Karen Resendiz MD Date Dictated: 03/26/24 101 Date Transcribed: 03/26/241018 Poster: BLAINE Signed Normal [facility] Cardiology Visit Reporton Cardiology Visit Report [facility] [address] [place] [address] OFFICE VISIT Date of Service: 03/26/24 MR#: [id number] Acct: [id number] Name: KALINA RUDD Rep #: [id number] : 1940 Provider: MEG moran Age/Sex: 83/F Location: [facility] Status: Signed HPI HPI History of Present Illness Details: Patient comes in is a 83-year-old white female for monitoring for cardiovascular status. The patient originally presented [facility] with a STEMI on 01/19/2024 and she is underwent emergent left heart catheterization and was life lighted to [facility] for emergent percutaneous revascularization due to the complex nature of her anatomy. She received an LAD stent a bifurcating circumflex OM stent in the residual diagonal branch with 70% stenosis was treated medically. Her ejection fraction the day after was found to be 55-60%. Following discharge the patient returns the emergency department on 2 separate occasions once at [facility] and once at [facility] with a hypertensive urgency. Her medications were adjusted which she remains extremely confused about. The patient carries a longstanding history of fibromyalgia which is chronic back discomfort. She also has left shoulder pain. She does not remember what her symptoms felt like when she presented with her STEMI. She had she was seen in the [facility] cardiology office and is confused about what they told her to do with her meds and was she thought was told that she had an air leak. I believe what she was referring to is an aortic valve regurgitation that is mild to moderate by her echocardiogram done January 20, 2024. She acknowledges daily, midsternal chest discomfort. She describes this as sharp and dull. This lasts for hours and improves with position changes. She acknowledges lower extremity edema. She acknowledges shortness with activity. She denies shortness of breath at rest, orthopnea, cough, or PND. She denies lightheadedness, dizziness, near-syncope, or syncope. She acknowledges fatigue and weakness. Intake Vital Signs 02/20/24 10:55 03/26/24 10:05 Height 5 ft 2 in 5 ft 2 in Weight: 135 lb 138 lb BMI 24.7 25.2 BP 156/69 H 133/68 H Blood Pressure Location Rt brachial Rt brachial Position Sitting Sitting Respiration 18 20 H Pulse 63 72 Pulse Source Monitor Monitor Pulse Oximetry (%) 97 100 Oxygen Delivery Method room air room air Intake Visit Reasons: 1 mo f/u for meds per Dr. Good Rail Bonder Required: No Accompanied by: Is patient in pain?: Yes (low back and midsternal) Pain scale (1-10): 5 Allergies amitriptyline Allergy (Verified 03/26/24 10:08) Unknown codeine Allergy (Verified 03/26/24 10:08) Chest tightness trazodone Allergy (Verified 03/26/24 10:08) Other Medications ???Medication ???Instructions ???Recorded ???Confirmed ???Type Omeprazole [Prilosec] 40 mg PO DAILY 08/23/13 03/26/24 H istory duloxetine 60 mg capsule,delayed 60 mg PO DAILY 08/23/13 03/26/24 H istory release metoprolol succinate 50 mg 50 mg PO DAILY 05/30/20 03/26/24 H istory tablet,extended release 24 hr aspirin 81 mg tablet,delayed 81 mg PO DAILY 01/24/24 03/26/24 H istory release clopidogrel 75 mg tablet 75 mg PO DAILY 01/24/24 03/26/24 H istory dorzolamide 2 % eye drops 1 drp ophthalmic (eye) TID 4 03/26/24 History rosuvastatin 20 mg tablet 20 mg PO QHS 01/24/24 03/26/24 His tory amlodipine 10 mg tablet 10 mg PO QDAY #30 tabs 02/20/24 Rx gabapentin 300 mg capsule 600 mg PO TIDCM 02/20/24 03/26/24 History isosorbide mononitrate 30 mg 30 mg PO QDAY 02/20/24 03/26/24 Use It Better story tablet,extended release 24 hr losartan 50 mg tablet 50 mg PO QDAY 02/20/24 03/26/24 Hi story Ejection fraction %: 55 Have you fallen in the past year?: Yes (3 wks ago at home. no injury.) [facility], LAT[facility] Medical History History of left heart catheterization STEMI (ST elevation myocardial infarction) Acute coronary syndrome Fibromyalgia HTN (hypertension) Surgical History History of cholecystectomy History of coronary artery stent placement Family History Father Hypertension Hx of CABG Social History Smoking Status: Never smoker alcohol intake: never substance use type: does not use caffeine: No ROS Const Const: Positive for fatigue, weakness, body ache, headache(s) (occ), night sweats (occ), daytime sleepiness (sleeps during day) and difficulty sleeping (at night); Negative for fever(s), chills, frequent falls, excessive sweating, weight gain or weight loss Eyes (more content not included)... Normal [facility] 03-12-2024 [facility] Office Visit (INTMWS ) -- KALINA RUDD ([id number]) 1940 F T Date Time Provider Department 03/12/24 11:20 AM ALEXEI SKELTON INTMWS During your visit today, we recorded the following information about you: Temperature Pulse Respiration Blood pressure 100 degrees 81/minute 20/minute 128/60 Weight 63.3 kg Alexei Skelton MD 03/12/2024 1:48 PM Signed This note was created using NoteWriter. Subjective Patient presents with: Cough: dry sounding for about 2 weeks more at night. Clear nasal drainage. scratchy throat Kalina Rudd is a 83 year old female who presents with complaint of nasal congestion, cough- nonproductive and with some dyspnea, and fatigue for 2 weeks. Associated symptoms include sore throat- mild and headache. She denies fever, ear pain, wheezing, trouble swallowing, nausea, vomiting, diarrhea, and difficulty drinking fluids . Treatments tried include nothing so far. Her had strep throat 2 weeks ago. She had sharp brief left sided chest pain that seemed related to movement. She is status post STEMI, cardiac cath, and PCI with stents of LAD, CFX, and OM1 2023. [facility] Review of Systems Constitutional: Negative for chills and diaphoresis. Respiratory: Negative for chest tightness and wheezing. Cardiovascular: Negative for palpitations and leg swelling. Gastrointestinal: Negative for abdominal pain, diarrhea, nausea and vomiting. Genitourinary: Negative for vaginal discharge. Neurological: Negative for dizziness and light-headedness. 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 PLAVIX 75 mg tablet Take 75 mg by mouth once daily. 10 am isosorbide mononitrate ER (IMDUR) 30 mg 24 hr tablet Take 30 mg by mouth once daily. Before a meal rosuvastatin (CRESTOR) 20 mg tablet Take 1 tablet by mouth daily at bedtime. losartan (COZAAR) 50 mg tablet Take 1 tablet by mouth once daily. metoprolol succinate ER (TOPROL XL) 50 mg 24 hr tablet Take 1 tablet by mouth once daily. gabapentin (NEURONTIN) 300 mg capsule TAKE 2 CAPSULES THREE TIMES DAILY DIRECTED crisaborole 2 % Apply to affected area two times a day. Apply a thin film to affected area(s) 2 times daily DULoxetine (CYMBALTA) 60 mg capsule Take 1 capsule by mouth once daily. omeprazole (PRILOSEC) 40 mg capsule Take 1 capsule by mouth once daily. dorzolamide HCl/PF (DORZOLAMIDE, PF,) 2 % drop Use 1 Drop in eyes three times daily. amLODIPine (NORVASC) 10 mg tablet Take 1 tablet by mouth once daily. [facility]. amoxicillin (AMOXIL) 875 mg tablet Take 1 tablet by mouth two times a day for 5 days. fluconazole (DIFLUCAN) 150 mg tablet Take 1 tablet by mouth one time only for 1 dose. estradiol (ESTRACE) 0.01 % (0.1 mg/gram) vaginal cream Apply to urethral opening for atrophic vaginitis. Two to three times a week. Miscellaneous [employer] probiotics--Yeast and Vaginal PH support probiotic. Probiotic blend. Takes 1 by mouth at bedtime glycerin-min oil-polycarbophil (REPLENS) gel Uses Replens cream 3 times weekly COMPOUNDED PRESCRIPTION Massage therapy Dx: Fibromyalgia, Arthritis No current facility-administered medications for this visit. Objective BP 128/60 Pulse 81 Temp 37.8 ?C (100 ?F) (Temporal) Resp 20 Wt 63.3 kg (139 lb 8.8 oz) SpO2 95% BMI 25.94 kg/m? Physical Exam Constitutional: General: She is not in acute distress. Appearance: She is not ill-appearing or diaphoretic. HENT: Head: Normocephalic. Right Ear: Tympanic membrane normal. Left Ear: Tympanic membrane normal. Nose: Congestion present. Right Sinus: No maxillary sinus tenderness or frontal sinus tenderness. Left Sinus: No maxillary sinus tenderness or frontal sinus tenderness. Comments: Purulent drainage, left nares. Mouth/Throat: Pharynx: Postnasal drip present. No oropharyngeal exudate or posterior oropharyngeal erythema. Cardiovascular: Rate and Rhythm: Normal rate and regular rhythm. Heart sounds: S1 normal and S2 normal. Murmur heard. Systolic murmur is present with a grade of 1/6. Pulmonary: Effort: No respiratory distress. Breath sounds: Examinati (more content not included)... Normal [facility] XR CHEST 2V FRONTAL/LATon XR CHEST 2V FRONTAL/LAT * * *Final Report* * * DATE OF EXAM: Mar 12 2024 12:38PM WOX [id number] - XR CHEST 2V FRONTAL/LAT / PROCEDURE REASON: Acute cough * * * * Physician Interpretation * * * * EXAMINATION: CHEST RADIOGRAPH (2 VIEW FRONTAL and LATERAL) CLINICAL HISTORY: Acute cough MQ: XC2_6 EXAM DATE/TIME: 03/12/2024 12:38 PM COMPARISON: 08/22/2010 RESULT: Lines, tubes, and devices: None. Lungs and pleura: No consolidation. No lung mass. No pleural effusion. No pneumothorax. Minimal stable linear fibrosis on the right Cardiomediastinal silhouette: Normal cardiomediastinal silhouette. Bones and soft tissues: Multilevel degenerative change. IMPRESSION: No acute radiographic abnormality. Poster: [email or web address] Transcribe Date/Time: Mar 12 2024 5:06P Dictated by : ANDREW ROBERTSON MD This examination was interpreted and the report reviewed and electronically signed by: ANDREW ROBERTSON MD on Mar 12 2024 5:10PM EST [id number] Normal [facility] XR Chest PA and Lateralon IMPRESSION: No acute radiographic abnormality. Poster: [email or web address] Transcribe Date/Time: Mar 12 2024 5:06P Dictated by : ANDREW ROBERTSON MD This examination was interpreted and the report reviewed and electronically signed by: ANDREW ROBERTSON MD on Mar 12 2024 5:10PM EST DIVISION OF RADIOLOGY * * *Final Report* * * DATE OF EXAM: Mar 12 2024 12:38PM [id number] - XR CHEST 2V FRONTAL/LAT / PROCEDURE REASON: Acute cough * * * * Physician Interpretation * * * * EXAMINATION: CHEST RADIOGRAPH (2 VIEW FRONTAL & LATERAL) CLINICAL HISTORY: Acute cough MQ: XC2_6 EXAM DATE/TIME: 03/12/2024 12:38 PM COMPARISON: 08/22/2010 RESULT: Lines, tubes, and devices: None. Lungs and pleura: No consolidation. No lung mass. No pleural effusion. No pneumothorax. Minimal stable linear fibrosis on the right Cardiomediastinal silhouette: Normal cardiomediastinal silhouette. Bones and soft tissues: Multilevel degenerative change. DIVISION OF RADIOLOGY Provider, [facility] - 03/12/2024 * * *Final Report* * * DATE OF EXAM: Mar 12 2024 12:38PM WOX [id number] - XR CHEST 2V FRONTAL/LAT / PROCEDURE REASON: Acute cough * * * * Physician Interpretation * * * * EXAMINATION: CHEST RADIOGRAPH (2 VIEW FRONTAL & LATERAL) CLINICAL HISTORY: Acute cough MQ: XC2_6 EXAM DATE/TIME: 03/12/2024 12:38 PM COMPARISON: 08/22/2010 RESULT: Lines, tubes, and devices: None. Lungs and pleura: No consolidation. No lung mass. No pleural effusion. No pneumothorax. Minimal stable linear fibrosis on the right Cardiomediastinal silhouette: Normal cardiomediastinal silhouette. Bones and soft tissues: Multilevel degenerative change. IMPRESSION IMPRESSION: No acute radiographic abnormality. Poster: [email or web address] Transcribe Date/Time: Mar 12 2024 5:06P Dictated by : ANDREW ROBERTSON MD This examination was interpreted and the report reviewed and electronically signed by: ANDREW ROBERTSON MD on Mar 12 2024 5:10PM EST [facility] Radiology Study observation (narrative) [facility] XR Chest PA and LateralOrder ed By: [facility] Provider on 03-12-2024 [facility] Cardiology Visit Reporton Cardiology Visit Report [facility] [address] [place] [address] OFFICE VISIT Date of Service: 02/20/24 MR#: [id number] Acct: [id number] Name: KALINA RUDD Rep #: [id number] : 1940 Provider: Dr. Kenny tracy MD Age/Sex: 83/F Location: [facility] Status: Signed HPI HPI History of Present Illness Details: Patient comes in is a 83-year-old white female for monitoring for cardiovascular status. The patient originally presented [facility] with a STEMI on 01/19/2024 and she is underwent emergent left heart catheterization and was life lighted to [facility] for emergent percutaneous revascularization due to the complex nature of her anatomy. She received an LAD stent a bifurcating circumflex OM stent in the residual diagonal branch with 70% stenosis was treated medically. Her ejection fraction the day after was found to be 55-60%. Following discharge the patient returns the emergency department on 2 separate occasions once at [facility] and once at [facility] with a hypertensive urgency. Her medications were adjusted which she remains extremely confused about. I segregated out her medications into 3 separate bags so that she would know when to take him. She was supposed to be on amlodipine which has not in her pill bottles. We will adjust that. The patient carries a longstanding history of fibromyalgia which is chronic back discomfort. She also has left shoulder pain. She does not remember what her symptoms felt like when she presented with her STEMI. The patient reports she continues to have the same back pain that she has had from her fibromyalgia she denies any syncope or near syncope. The patient is very slow to understand alterations in her medical regiment our explanations that I try to give her. She had she was seen in the [facility] cardiology office and is confused about what they told her to do with her meds and was she thought was told that she had an air leak. I believe what she was referring to is an aortic valve regurgitation that is mild to moderate by her echocardiogram done January 20, 2024. The patient at this point in time is not interested in cardiac rehab. She is going a reconsidered and will let us know by phone. Intake Vital Signs 01/24/24 10:05 02/20/24 10:55 Height 5 ft 2 in 5 ft 2 in Weight: 135 lb BMI 24.7 BP 156/69 H Blood Pressure Location Rt brachial Position Sitting Respiration 18 Pulse 63 Pulse Source Monitor Pulse Oximetry (%) 97 Oxygen Delivery Method room air Intake Visit Reasons: S/P [facility] STEMI 01/18 [place] Required: No Accompanied by: Is patient in pain?: No Allergies amitriptyline Allergy (Verified 02/20/24 10:56) Unknown codeine Allergy (Verified 02/20/24 10:56) Chest tightness trazodone Allergy (Verified 02/20/24 10:56) Other Medications ???Medication ???Instructions ???Recorded ???Confirmed ???Type Omeprazole [Prilosec] 40 mg PO DAILY 08/23/13 02/20/24 History duloxetine 60 mg capsule,delayed 60 mg PO DAILY 08/23/13 02/20/24 History release metoprolol succinate 50 mg 50 mg PO DAILY 05/30/20 02/20/24 History tablet,extended release 24 hr aspirin 81 mg tablet,delayed 81 mg PO DAILY 01/24/24 02/20/24 History release clopidogrel 75 mg tablet 75 mg PO DAILY 01/24/24 02/20/24 History dorzolamide 2 % eye drops 1 drp ophthalmic (eye) TID 01/24/24 02/20/24 History rosuvastatin 20 mg tablet 20 mg PO QHS 01/24/24 02/20/24 History amlodipine 5 mg tablet 5 mg PO QDAY #30 tabs 02/20/24 02/20/24 Rx gabapentin 300 mg capsule 600 mg PO TIDCM 02/20/24 02/20/24 History isosorbide mononitrate 30 mg 30 mg PO QDAY 02/20/24 02/20/24 History tablet,extended release 24 hr losartan 50 mg tablet 50 mg PO QDAY 02/20/24 02/20/24 History Ejection fraction %: 55 Have you fallen in the past year?: Yes PFSH Medical History History of left heart catheterization STEMI (ST elevation myocardial infarction) Acute coronary syndrome Fibromyalgia HTN (hypertension) Surgical History History of cholecystectomy History of coronary artery stent placement Family History Father Hypertension Hx of CABG Social History Smoking Status: Never smoker alcohol intake: never substance use type: does not use caffeine: No ROS Const Const: Positive for fatigue and weakness (improving) ENT ENT: Negative for dizziness or balance problems Cardio Chest Pain: Yes Palpitations: No Edema: None Muscle aches with walking: None Resp Respiratory: Positive for SOB with ac (more content not included)... [facility] (INTM[facility] ) -- KALINA RUDD ([id number]) 1940 F CHT Date Time Provider Department 01/27/24 11:00 AM KAREN RESENDIZ INTMWS During your visit today, we recorded the following information about you: Temperature Pulse Respiration Blood pressure 97.5 degrees 82/minute 21/minute 122/60 Weight 60.7 kg Karen Resendiz MD 02/23/2024 12:14 AM Signed Transitional Care Management TCM Eligibility Documentation Program: Transitional Care Management Status: Enrolled Effective Dates: 01/21/2024 - present Responsible Staff: Korina Billy RN Discharge date: 01/19/2024 (Program start) Date of initial contact: 01/21/2024 Initial contact Target status: Successful; Contact made within 2 business days post-discharge Re-Admitted again 01/23 and discharged yesterday Provider Documentation Kalina Rudd is a 83 year old female here today for a follow up from recent hospitalization. I have reviewed the patient's hospital course including discharge summary, discharge medications , and follow up needs with the patient and any family members present at today's visit. HPI Patient presents with: Hospital F/U: [facility] x 2 hospital visits SUBJECTIVE: Kalina Rudd is a 83 year old year old lady here today for TCM follow up appointment for review of medical conditions. From most recent hospital stay: Patient states that her blood pressure has been high over the last few days up into the 190s systolic. Because of her high blood pressure she was concerned and presented to the ED. She denied any chest pain, chest discomfort, shortness of breath, dyspnea on exertion. Upon arrival to the ED, patient was hypertensive to the 180s systolic but otherwise hemodynamically stable. While in the ED, she began having some chest and back discomfort. She was given IV pain medication and a Nitropatch which reduced the pain. Labs significant for sodium 139, potassium 3.9, creatinine 0.85, troponin in the 334-> 288-> 250, BNP unable to be obtained. D-dimer elevated. CTA chest negative for PE or aortic dissection, did demonstrate emphysema with mild ground-glass opacities. Given her recent STEMI and stent placements, she was transferred to [facility] for further evaluation. Upon arrival to the CCU, patient was hypertensive. Denied any chest pain. EKG demonstrating normal sinus rhythm with a PVC and no significant ST segment changes when compared to prior. Last echo 01/20/2024: EF 55 to 60% with no regional wall motion abnormalities, grade 1 diastolic dysfunction, mild to moderate aortic valve regurgitation. Plan: Reinitiate home metoprolol 50 mg daily, increase home losartan to 50 mg daily Start amlodipine 5 mg daily Continue aspirin and Plavix Trend troponin Obtain new labs Kalina Rudd is an 83-year-old female with a history of recent CA and stent placement, presenting for follow-up after two recent hospital admissions. Kalina reports experiencing back and chest pain following two recent hospital admissions for an CA, during which three stents were placed. She is currently taking Imdur for chest pain prophylaxis, which she administers at 0700. She also takes omeprazole at 0700, and metoprolol and Plavix at 0930. She reports difficulty adhering to this schedule due to her sleep patterns, noting that she and her partner do not sleep well at night and prefer to sleep in late in the morning. She also takes glaucoma eye drops at 0900 and inquires about adjusting her medication schedule to better fit her routine. Kalina reports that her blood pressure was 140/80 mmHg this morning, but she did not measure it yesterday. She is currently taking amlodipine 5 mg daily, losartan 50 mg daily, and metoprolol 50 mg daily. She recalls that during her second hospital admission, her metoprolol dosage was not increased for reasons she cannot remember. She also takes rosuvastatin 20 mg at bedtime and potassium supplements, which she describes as huge and difficult to swallow. Kalina has a follow-up appointment with her business applications manager on February 17, but she plans to switch to a local business applications manager due to insurance coverage issues. She expresses concern about her ability to afford her medications and medical bills, noting that she has been living comfortably on her current income but did not anticipate these medical expenses. Kalina also reports ongoing issues with eczema, for which she was prescribed a topical medication that she has not been using due to instructions from her first hospital discharge. She notes that her skin has been feeling better since she stopped using the medication. She does not currently use any lotions to keep her skin from getting dry. PAST MEDICAL HISTORY Diagnosis Date Dysthymic disorder Depression (non-psychotic) Essential hypertension, benign Generalize (more content not included)... Normal [facility] .Auto Diffon 01-26-2024 Basophil, Absolute 0.0 10 3/mcL Normal 0.0-0.3 [facility] Comment on above: Performed By: #### A DIFF, CBC, GFR, ANEU, BMP, MG #### [address] [address] Basophils/100 WBC (Bld) 0.7 % Normal 0.0-2.5 [facility] Comment on above: Performed By: #### A DIFF, CBC, GFR, ANEU, BMP, MG #### [address] [address] Eosinophil, Absolute 0.2 10 3/mcL Normal 0.0-0.7 [facility] Comment on above: Performed By: #### A DIFF, CBC, GFR, ANEU, BMP, MG #### [address] [address] Eosinophils/100 WBC (Bld) 3.5 % Normal 0.0-6.0 [facility] Comment on above: Performed By: #### A DIFF, CBC, GFR, ANEU, BMP, MG #### [address] [address] Lymphocyte, Absolute 2.0 10 3/mcL Normal 0.9-4.3 [facility] Comment on above: Performed By: #### A DIFF, CBC, GFR, ANEU, BMP, MG #### [address] [address] Lymphocytes/100 WBC (Bld) 30.6 % Normal 20.0-40.0 [facility] Comment on above: Performed By: #### A DIFF, CBC, GFR, ANEU, BMP, MG #### [address] [address] Monocyte, Absolute 0.5 10 3/mcL Normal 0.1-1.4 [facility] Comment on above: Performed By: #### A DIFF, CBC, GFR, ANEU, BMP, MG #### [address] [address] Monocytes/100 WBC (Bld) 7.9 % Normal 2.0-13.0 [facility] Comment on above: Performed By: #### A DIFF, CBC, GFR, ANEU, BMP, MG #### [address] [address] Neutrophils/100 WBC (Bld) 57.3 % Normal 50.0-75.0 [facility] Comment on above: Performed By: #### A DIFF, CBC, GFR, ANEU, BMP, MG #### [address] [address] .GFRon 01-26-2024 GFR >60 Normal [facility] Comment on above: Result Comment: GFR Population mean for , Non- Americans Ages 20-29 = 116 mL/min/1.73 sq.m. Ages 30-39 = 107 mL/min/1.73 sq.m. Ages 40-49 = 99 mL/min/1.73 sq.m. Ages 50-59 = 93 mL/min/1.73 sq.m. Ages 60-69 = 85 mL/min/1.73 sq.m. Ages 70+ = 75 mL/min/1.73 sq.m. Chronic Kidney Disease: Less than 60 mL/min/1.73 square meters End Stage Renal Disease: Less than 15 mL/min/1.73 square meters Performed By: #### A DIFF, CBC, GFR, ANEU, BMP, MG #### [address] [address] GFR Non- 55 ml/min/1.73sqm Normal [facility] Comment on above: Result Comment: GFR Population mean for , Non- Americans Ages 20-29 = 116 mL/min/1.73 sq.m. Ages 30-39 = 107 mL/min/1.73 sq.m. Ages 40-49 = 99 mL/min/1.73 sq.m. Ages 50-59 = 93 mL/min/1.73 sq.m. Ages 60-69 = 85 mL/min/1.73 sq.m. Ages 70+ = 75 mL/min/1.73 sq.m. Chronic Kidney Disease: Less than 60 mL/min/1.73 square meters End Stage Renal Disease: Less than 15 mL/min/1.73 square meters Performed By: #### A DIFF, CBC, GFR, ANEU, BMP, MG #### [address] [address] .NEUABSon 01-26-2024 Neutrophil, Absolute 3.7 10 3/mcL Normal 2.3-8.1 [facility] Comment on above: Performed By: #### A DIFF, CBC, GFR, ANEU, BMP, MG #### [address] [address] BMPon 01-26-2024 BUN/Creatinine Ratio 18.6 ratio Normal 10.0-22.0 [facility] Comment on above: Performed By: #### A DIFF, CBC, GFR, ANEU, BMP, MG #### [place] [address] Calcium [Mass/Vol] 9.2 mg/dL Normal 8.7-10.4 [facility] Comment on above: Performed By: #### A DIFF, CBC, GFR, ANEU, BMP, MG #### [place] [address] Chloride [Moles/Vol] 110 mmol/L Normal 98-110 [facility] Comment on above: Performed By: #### A DIFF, CBC, GFR, ANEU, BMP, MG #### [place] [address] CO2 [Moles/Vol] 24 mmol/L Normal 22-32 [facility] Comment on above: Performed By: #### A DIFF, CBC, GFR, ANEU, BMP, MG #### [place] [address] Creatinine [Mass/Vol] 0.97 mg/dL Normal 0.50-1.20 [facility] Comment on above: Result Comment: Test ing performed on [employer] analyzer using enzymatic creatinine methodology. Performed By: #### A DIFF, CBC, GFR, ANEU, BMP, MG #### [place] [address] Electrolyte Balance 6.0 mEq/L Normal 4.0-15.0 [facility] Comment on above: Performed By: #### A DIFF, CBC, GFR, ANEU, BMP, MG #### [address] [address] Glucose [Mass/Vol] 98 mg/dL Normal 82-115 [facility] Comment on above: Performed By: #### A DIFF, CBC, GFR, ANEU, BMP, MG #### [address] [address] Potassium [Moles/Vol] 4.2 mmol/L Normal 3.5-5.0 [facility] Comment on above: Performed By: #### A DIFF, CBC, GFR, ANEU, BMP, MG #### [address] [address] Sodium [Moles/Vol] 140 mmol/L Normal 136-145 [facility] Comment on above: Performed By: #### A DIFF, CBC, GFR, ANEU, BMP, MG #### [address] [address] Urea nitrogen [Mass/Vol] 18.0 mg/dL Normal 8.0-22.0 [facility] Comment on above: Performed By: #### A DIFF, CBC, GFR, ANEU, BMP, MG #### [address] [address] BNP,B-Type NATRIURETIC PEPTI David 01-26-2024 Natriuretic peptide B (Bld) [Mass/Vol] 177.2 pg/mL High 0-100 [facility] Comment on above: Performed By: #### L 100.0100, L501.5425, L500.2500, L501.5200, L300.3900, L503.6620, L300.4310 ####[facility] [id number] [place], [place], [id number] [facility] Erythrocyte distribution width (RBC) [Ratio] 13.6 % Normal 11.5-15.5 [facility] Comment on above: Performed By: #### A DIFF, CBC, GFR, ANEU, BMP, MG #### [place] [id number] [place] [address] Hematocrit (Bld) [Volume fraction] 35.3 % Normal 34.0-46.0 [facility] Comment on above: Performed By: #### A DIFF, CBC, GFR, ANEU, BMP, MG #### [place] [address] Hgb 12.0 G/dL Normal 12.0-16.0 [facility] Comment on above: Performed By: #### A DIFF, CBC, GFR, ANEU, BMP, MG #### [place] [address] MCH (RBC) [Entitic mass] 31.1 pg Normal 27.0-33.0 [facility] Comment on above: Performed By: #### A DIFF, CBC, GFR, ANEU, BMP, MG #### [place] [address] MCHC 33.9 G/dL Normal 32.0-36.0 [facility] Comment on above: Performed By: #### A DIFF, CBC, GFR, ANEU, BMP, MG #### [place] [address] MCV (RBC) [Entitic vol] 91.7 fL Normal 80.0-99.0 [facility] Comment on above: Performed By: #### A DIFF, CBC, GFR, ANEU, BMP, MG #### [place] [address] Platelet 307 10 3/mcL Normal 150-450 [facility] Comment on above: Performed By: #### A DIFF, CBC, GFR, ANEU, BMP, MG #### [place] [address] Platelet mean volume (Bld) [Entitic vol] 7.8 fL Normal 6.6-10.5 [facility] Comment on above: Performed By: #### A DIFF, CBC, GFR, ANEU, BMP, MG #### [place] [address] RBC 3.85 10 6/mcL Low 4.10-5.30 [facility] Comment on above: Performed By: #### A DIFF, CBC, GFR, ANEU, BMP, MG #### [facility] [address] [place] [address] WBC 6.5 10 3/mcL Normal 4.5-10.8 [facility] Comment on above: Performed By: #### A DIFF, CBC, GFR, ANEU, BMP, MG #### [facility] [address] [place] [address] LABORATORYOrdered By: SYSTEM SYSTEM on 01-26-2024 Basophils (Bld) [#/Vol] 0.0 103/mcL Normal 0.0 - 0.3 10^3/mcL AH Workflow SS Basophils/100 WBC (Bld) 0.7 % Normal 0.0 - 2.5 % AH Workflow SS Calcium [Mass/Vol] 9.2 mg/dL Normal 8.7 - 10. 4 mg/dL ADM SS Chloride [Moles/Vol] 110 mmol/L Normal 98 - 11 0 mEq/L ADM SS CO2 [Moles/Vol] 24 mmol/L Normal 22 - 32 mEq/L ADM SS Creatinine [Mass/Vol] 0.97 mg/dL Normal 0.50 - 1.20 mg/dL AH ADM SS Comment on above: Interpretive Data: T esting performed on [employer] CH analyzer using enzymatic creatinine methodology. Electrolyte Balance 6.0 mEq/L Normal 4.0 - 15 .0 mEq/L AH ADM SS Eosinophils (Bld) [#/Vol] 0.2 103/mcL Normal 0.0 - 0.7 10^3/mcL AH Workflow SS Eosinophils/100 WBC (Bld) 3.5 % Normal 0.0 - 6.0 % AH Workflow SS Erythrocyte distribution width (RBC) [Ratio] 13.6 % Normal 11.5 - 15.5 % AH Workflow SS GFR/1.73 sq M.predicted among blacks MDRD (S/P/Bld) [Vol rate/Area] ml/min/1.73sqm Invalid Interpretation Code AH ADM SS Comment on above: Interpretive Data: GFR Population mean for , Non- Americans Ages 20-29 = 116 mL/min/1.73 sq.m. Ages 30-39 = 107 mL/min/1.73 sq.m. Ages 40-49 = 99 mL/min/1.73 sq.m. Ages 50-59 = 93 mL/min/1.73 sq.m. Ages 60-69 = 85 mL/min/1.73 sq.m. Ages 70+ = 75 mL/min/1.73 sq.m. Chronic Kidney Disease: Less than 60 mL/min/1.73 square meters End Stage Renal Disease: Less than 15 mL/min/1.73 square meters GFR/1.73 sq M.predicted among non-blacks MDRD (S/P/Bld) [Vol rate/Area] 55 ml/min/1.73sqm Invalid Interpretation Code ADM SS Comment on above: Interpretive Data: GFR Population mean for , Non- Americans Ages 20-29 = 116 mL/min/1.73 sq.m. Ages 30-39 = 107 mL/min/1.73 sq.m. Ages 40-49 = 99 mL/min/1.73 sq.m. Ages 50-59 = 93 mL/min/1.73 sq.m. Ages 60-69 = 85 mL/min/1.73 sq.m. Ages 70+ = 75 mL/min/1.73 sq.m. Chronic Kidney Disease: Less than 60 mL/min/1.73 square meters End Stage Renal Disease: Less than 15 mL/min/1.73 square meters Glucose [Mass/Vol] 98 mg/dL Normal 82 - 115 mg/dL ADM SS Hematocrit (Bld) [Volume fraction] 35.3 % Normal 34.0 - 46.0 % AH Workflow SS Hemoglobin (Bld) [Mass/Vol] 12.0 G/dL Normal 12.0 - 16.0 G/dL AH Workflow SS Lymphocytes (Bld) [#/Vol] 2.0 103/mcL Normal 0.9 - 4.3 10^3/mcL Workflow SS Lymphocytes/100 WBC (Bld) 30.6 % Normal 20.0 - 40.0 % AH Workflow SS Magnesium [Mass/Vol] 2.0 mg/dL Normal 1.6 - 2 .4 mg/dL ADM SS MCH (RBC) [Entitic mass] 31.1 pg Normal 27.0 - 33.0 pg AH Workflow SS MCHC 33.9 G/dL Normal 32.0 - 36.0 G/dL AH Workflow SS MCV (RBC) [Entitic vol] 91.7 fL Normal 80.0 - 99.0 fL AH Workflow SS Monocytes (Bld) [#/Vol] 0.5 103/mcL Normal 0.1 - 1.4 10^3/mcL AH Workflow SS Monocytes/100 WBC (Bld) 7.9 % Normal 2.0 - 13.0 % AH Workflow SS Neutrophils (Bld) [#/Vol] 3.7 103/mcL Normal 2.3 - 8.1 10^3/mcL AH Workflow SS Neutrophils/100 WBC (Bld) 57.3 % Normal 50.0 - 75.0 % AH Workflow SS Platelet mean volume (Bld) [Entitic vol] 7.8 fL Normal 6.6 - 10.5 fL AH Workflow SS Platelets (Bld) [#/Vol] 307 103/mcL Normal 150 - 450 10^3/mcL AH Workflow SS Potassium [Moles/Vol] 4.2 mmol/L Normal 3.5 - 5.0 mEq/L AH ADM SS RBC (Bld) [#/Vol] 3.85 106/mcL Low 4.10 - 5.3 0 10^6/mcL AH Workflow SS Sodium [Moles/Vol] 140 mmol/L Normal 136 - 145 mEq/L AH ADM SS Urea nitrogen [Mass/Vol] 18.0 mg/dL Normal 8.0 - 22.0 mg/dL AH ADM SS Urea nitrogen/Creatinine [Mass ratio] 18.6 ratio Normal 10.0 - 22.0 ratio AH ADM SS WBC (Bld) [#/Vol] 6.5 103/mcL Normal 4.5 - 10.8 10^3/mcL AH Workflow SS LABORATORYOrdered By: Nenita Luna on 01-26-2024 Cholesterol [Mass/Vol] 119 mg/dL Normal 50 - 199 mg/dL ADM SS Comment on above: Interpretive Data: C holesterol Reference Interval: Less than 200 Desirable 200-239 Borderline high risk 240 and above High risk Cholesterol in HDL [Mass/Vol] 40 mg/dL Normal 40 - 59 mg/dL ADM SS Cholesterol in LDL [Mass/Vol] 59 mg/dL Normal 0 - 129 mg/dL ADM SS Triglyceride [Mass/Vol] 99 mg/dL Normal 3 - 149 mg/dL ADM SS LIPIDon 01-26-2024 Cholesterol [Mass/Vol] 119 mg/dL Normal 50-199 [facility] Comment on above: Result Comment: Chol esterol Reference Interval: Less than 200 Desirable 200-239 Borderline high risk 240 and above High risk Performed By: #### A DIFF, CBC, GFR, ANEU, BMP, MG #### [address] [address] Cholesterol in HDL [Mass/Vol] 40 mg/dL Normal 40-59 [facility] Comment on above: Performed By: #### A DIFF, CBC, GFR, ANEU, BMP, MG #### [address] [address] Cholesterol in LDL [Mass/Vol] 59 mg/dL Normal 0-129 [facility] Comment on above: Performed By: #### A DIFF, CBC, GFR, ANEU, BMP, MG #### [address] [address] Triglyceride [Mass/Vol] 99 mg/dL Normal 3-149 [facility] Comment on above: Performed By: #### A DIFF, CBC, GFR, ANEU, BMP, MG #### [address] [address] MGon 01-26-2024 Magnesium [Mass/Vol] 2.0 mg/dL Normal 1.6-2.4 [facility] Comment on above: Performed By: #### A DIFF, CBC, GFR, ANEU, BMP, MG #### [address] [address] .Auto Diffon 01-25-2024 Basophil, Absolute 0.0 10 3/mcL Normal 0.0-0.3 [facility] Comment on above: Performed By: #### M G, CMP, GFR, CBC, PBNP, ANEU, ADIFF, TSH, TROPHS #### [address] [address] Basophils/100 WBC (Bld) 0.6 % Normal 0.0-2.5 [facility] Comment on above: Performed By: #### M G, CMP, GFR, CBC, PBNP, ANEU, ADIFF, TSH, TROPHS #### [address] [address] Eosinophil, Absolute 0.1 10 3/mcL Normal 0.0-0.7 [facility] Comment on above: Performed By: #### M G, CMP, GFR, CBC, PBNP, ANEU, ADIFF, TSH, TROPHS #### [address] [address] Eosinophils/100 WBC (Bld) 2.2 % Normal 0.0-6.0 [facility] Comment on above: Performed By: #### M G, CMP, GFR, CBC, PBNP, ANEU, ADIFF, TSH, TROPHS #### [address] [address] Lymphocyte, Absolute 1.4 10 3/mcL Normal 0.9-4.3 [facility] Comment on above: Performed By: #### M G, CMP, GFR, CBC, PBNP, ANEU, ADIFF, TSH, TROPHS #### [address] [address] Lymphocytes/100 WBC (Bld) 21.0 % Normal 20.0-40.0 [facility] Comment on above: Performed By: #### M G, CMP, GFR, CBC, PBNP, ANEU, ADIFF, TSH, TROPHS #### [address] [address] Monocyte, Absolute 0.5 10 3/mcL Normal 0.1-1.4 [facility] Comment on above: Performed By: #### M G, CMP, GFR, CBC, PBNP, ANEU, ADIFF, TSH, TROPHS #### [address] [address] Monocytes/100 WBC (Bld) 7.5 % Normal 2.0-13.0 [facility] Comment on above: Performed By: #### M G, CMP, GFR, CBC, PBNP, ANEU, ADIFF, TSH, TROPHS #### [address] [address] Neutrophils/100 WBC (Bld) 68.7 % Normal 50.0-75.0 [facility] Comment on above: Performed By: #### M G, CMP, GFR, CBC, PBNP, ANEU, ADIFF, TSH, TROPHS #### [address] [address] .GFRon 12-15-2024 GFR >60 Normal [facility] Comment on above: Result Comment: GFR Population mean for , Non- Americans Ages 20-29 = 116 mL/min/1.73 sq.m. Ages 30-39 = 107 mL/min/1.73 sq.m. Ages 40-49 = 99 mL/min/1.73 sq.m. Ages 50-59 = 93 mL/min/1.73 sq.m. Ages 60-69 = 85 mL/min/1.73 sq.m. Ages 70+ = 75 mL/min/1.73 sq.m. Chronic Kidney Disease: Less than 60 mL/min/1.73 square meters End Stage Renal Disease: Less than 15 mL/min/1.73 square meters Performed By: #### A DIFF, CBC, GFR, ANEU, BMP, MG #### [place] [address] GFR Non- >60 Normal [facility] Comment on above: Result Comment: GFR Population mean for , Non- Americans Ages 20-29 = 116 mL/min/1.73 sq.m. Ages 30-39 = 107 mL/min/1.73 sq.m. Ages 40-49 = 99 mL/min/1.73 sq.m. Ages 50-59 = 93 mL/min/1.73 sq.m. Ages 60-69 = 85 mL/min/1.73 sq.m. Ages 70+ = 75 mL/min/1.73 sq.m. Chronic Kidney Disease: Less than 60 mL/min/1.73 square meters End Stage Renal Disease: Less than 15 mL/min/1.73 square meters Performed By: #### A DIFF, CBC, GFR, ANEU, BMP, MG #### [address] [address] .NEUABSon 01-25-2024 Neutrophil, Absolute 4.6 10 3/mcL Normal 2.3-8.1 [facility] Comment on above: Performed By: #### A DIFF, CBC, GFR, ANEU, BMP, MG #### [address] [address] 12 Lead EKGon 01-25-2024 12 Lead EKG [facility] Cardi[facility] Services [address] [place] [address] 12 Lead EKG 01/24/24 1715 MR#: [id number] Acct: [id number] Name: KALINA RUDD Rep #: [id number] : 1940 83 From: Meche Sutton MD Attending Dr: Status: DEP ER Ordering Dr: Chetan Nick DO Date: 01/25/24 Location: ED Sex: F C Admitted: Test Reason : CP/HTN/REPEAT Blood Pressure : */* mmHG Vent. Rate : 68 BPM Atrial Rate : 68 BPM P-R Int : 148 ms QRS Dur : 84 ms QT Int : 386 ms P-R-T Axes : 48 -38 108 degrees QTcB Int : 410 ms Sinus rhythm with marked sinus arrhythmia Left axis deviation T wave abnormality, consider anterolateral ischemia Abnormal ECG Confirmed by RADHA TERRAZAS, BARBARA ([id number]), supervising editor news reel EMILY MANTILLA ([id number]) on 01/28/2024 1:38:33 PM Referred By: Confirmed By: BARBARA SUTTON MD 01/28/24 1338 Date Meche Sutton MD CC: Dr. Karen Resendiz MD; Dr. Mejia Shah DO; Chetan Nick DO Signed Normal [facility] CBCon 01-25-2024 Erythrocyte distribution width (RBC) [Ratio] 13.6 % Normal 11.5-15.5 [facility] Comment on above: Performed By: #### M G, CMP, GFR, CBC, PBNP, ANEU, ADIFF, TSH, TROPHS #### [address] [address] Hematocrit (Bld) [Volume fraction] 37.9 % Normal 34.0-46.0 [facility] Comment on above: Performed By: #### M G, CMP, GFR, CBC, PBNP, ANEU, ADIFF, TSH, TROPHS #### [place] [address] Hgb 12.7 G/dL Normal 12.0-16.0 [facility] Comment on above: Performed By: #### M G, CMP, GFR, CBC, PBNP, ANEU, ADIFF, TSH, TROPHS #### [place] [address] MCH (RBC) [Entitic mass] 31.0 pg Normal 27.0-33.0 [facility] Comment on above: Performed By: #### M G, CMP, GFR, CBC, PBNP, ANEU, ADIFF, TSH, TROPHS #### [place] [address] MCHC 33.6 G/dL Normal 32.0-36.0 [facility] Comment on above: Performed By: #### M G, CMP, GFR, CBC, PBNP, ANEU, ADIFF, TSH, TROPHS #### [place] [address] MCV (RBC) [Entitic vol] 92.2 fL Normal 80.0-99.0 [facility] Comment on above: Performed By: #### M G, CMP, GFR, CBC, PBNP, ANEU, ADIFF, TSH, TROPHS #### [place] [address] Platelet 293 10 3/mcL Normal 150-450 [facility] Comment on above: Performed By: #### M G, CMP, GFR, CBC, PBNP, ANEU, ADIFF, TSH, TROPHS #### [place] [address] Platelet mean volume (Bld) [Entitic vol] 7.6 fL Normal 6.6-10.5 [facility] Comment on above: Performed By: #### M G, CMP, GFR, CBC, PBNP, ANEU, ADIFF, TSH, TROPHS #### [place] [address] RBC 4.11 10 6/mcL Normal 4.10-5.30 [facility] Comment on above: Performed By: #### M G, CMP, GFR, CBC, PBNP, ANEU, ADIFF, TSH, TROPHS #### [place] [address] WBC 6.7 10 3/mcL Normal 4.5-10.8 [facility] Comment on above: Performed By: #### M G, CMP, GFR, CBC, PBNP, ANEU, ADIFF, TSH, TROPHS #### [place] [id number] CMPon 01-25-2024 Albumin Level 3.1 G/dL Low 3.2-4.8 [facility] Comment on above: Performed By: #### A DIFF, CBC, GFR, ANEU, BMP, MG #### [place] [address] Albumin/Globulin [Mass ratio] 0.8 {ratio} Low 0.9-1.6 [facility] Comment on above: Performed By: #### A DIFF, CBC, GFR, ANEU, BMP, MG #### [place] [address] ALP [Catalytic activity/Vol] 98 U/L Normal 38-126 [facility] Comment on above: Performed By: #### A DIFF, CBC, GFR, ANEU, BMP, MG #### [place] [address] ALT [Catalytic activity/Vol] 10 U/L Normal 10-49 [facility] Comment on above: Performed By: #### A DIFF, CBC, GFR, ANEU, BMP, MG #### [place] [address] AST [Catalytic activity/Vol] 15 U/L Normal 8-34 [facility] Comment on above: Performed By: #### A DIFF, CBC, GFR, ANEU, BMP, MG #### [place] [address] Bili Total 0.90 mg/dL Normal 0.20-1.20 [facility] Comment on above: Result Comment: Use of this assay is not recommended for patients undergoing treatment with eltrombopag due to the potential for falsely elevated results. Performed By: #### A DIFF, CBC, GFR, ANEU, BMP, MG #### [place] [id number] BUN/Creatinine Ratio 16.7 ratio Normal 10.0-22.0 [facility] Comment on above: Performed By: #### A DIFF, CBC, GFR, ANEU, BMP, MG #### [address] [address] Calcium [Mass/Vol] 9.2 mg/dL Normal 8.7-10.4 [facility] Comment on above: Performed By: #### A DIFF, CBC, GFR, ANEU, BMP, MG #### [place] [id number] Chloride [Moles/Vol] 110 mmol/L Normal 98-110 [facility] Comment on above: Performed By: #### A DIFF, CBC, GFR, ANEU, BMP, MG #### [place] [id number] CO2 [Moles/Vol] 22 mmol/L Normal 22-32 [facility] Comment on above: Performed By: #### A DIFF, CBC, GFR, ANEU, BMP, MG #### [place] [id number] Creatinine [Mass/Vol] 0.72 mg/dL Normal 0.50-1.20 [facility] Comment on above: Result Comment: Test ing performed on [employer] analyzer using enzymatic creatinine methodology. Performed By: #### A DIFF, CBC, GFR, ANEU, BMP, MG #### [place] [address] Electrolyte Balance 9.0 mEq/L Normal 4.0-15.0 [facility] Comment on above: Performed By: #### A DIFF, CBC, GFR, ANEU, BMP, MG #### [place] [id number] Globulin 3.8 G/dL Normal 1.5-3.8 [facility] Comment on above: Performed By: #### A DIFF, CBC, GFR, ANEU, BMP, MG #### [place] [id number] Glucose [Mass/Vol] 84 mg/dL Normal 82-115 [facility] Comment on above: Performed By: #### A DIFF, CBC, GFR, ANEU, BMP, MG #### [address] [address] Potassium [Moles/Vol] 3.6 mmol/L Normal 3.5-5.0 [facility] Comment on above: Performed By: #### A DIFF, CBC, GFR, ANEU, BMP, MG #### [address] [address] Sodium [Moles/Vol] 141 mmol/L Normal 136-145 [facility] Comment on above: Performed By: #### A DIFF, CBC, GFR, ANEU, BMP, MG #### [address] [address] Total Protein 6.9 G/dL Normal 5.7-8.2 [facility] Comment on above: Performed By: #### A DIFF, CBC, GFR, ANEU, BMP, MG #### [address] [address] Urea nitrogen [Mass/Vol] 12.0 mg/dL Normal 8.0-22.0 [facility] Comment on above: Performed By: #### A DIFF, CBC, GFR, ANEU, BMP, MG #### [address] [address] LABORATORYOrdered By: SYSTEM SYSTEM on 01-25-2024 Troponin I.cardiac DL <= 0.01 ng/mL [Mass/Vol] 78 ng/L High 0 - 34 ng/L [facility] Comment on above: Interpretive Data: High Sensitive Troponin I Reference Ranges: Female: 0-34 ng/L Male: 0-54 ng/L Testing performed on [employer] IM analyzer using direct chemiluminescent technology. Troponin I.cardiac DL <= 0.01 ng/mL [Mass/Vol] 120 ng/L High 0 - 34 ng/L ADM Comment on above: Interpretive Data: High Sensitive Troponin I Reference Ranges: Female: 0-34 ng/L Male: 0-54 ng/L Testing performed on [employer] IM analyzer using direct chemiluminescent technology. Albumin BCP dye [Mass/Vol] 3.1 G/dL Low 3.2 - 4.8 G/dL ADM SS Albumin/Globulin [Mass ratio] 0.8 {ratio} Low 0.9 - 1.6 ratio ADM SS ALP [Catalytic activity/Vol] 98 U/L Normal 38 - 126 U/L ADM SS ALT No additional P-5'-P [Catalytic activity/Vol] 10 U/L Normal 10 - 49 U/L ADM SS AST [Catalytic activity/Vol] 15 U/L Normal 8 - 34 U/L ADM SS Basophils (Bld) [#/Vol] 0.0 103/mcL Normal 0.0 - 0.3 10^3/mcL Workflow SS Basophils/100 WBC (Bld) 0.6 % Normal 0.0 - 2.5 % Workflow SS Bilirubin [Mass/Vol] 0.90 mg/dL Normal 0.20 - 1.20 mg/dL ADM SS Comment on above: Interpretive Data: U se of this assay is not recommended for patients undergoing treatment with eltrombopag due to the potential for falsely elevated results. Calcium [Mass/Vol] 9.2 mg/dL Normal 8.7 - 10. 4 mg/dL ADM SS Chloride [Moles/Vol] 110 mmol/L Normal 98 - 11 0 mEq/L ADM SS CO2 [Moles/Vol] 22 mmol/L Normal 22 - 32 mEq/L ADM SS Creatinine [Mass/Vol] 0.72 mg/dL Normal 0.50 - 1.20 mg/dL ADM SS Comment on above: Interpretive Data: T esting performed on [employer] analyzer using enzymatic creatinine methodology. Electrolyte Balance 9.0 mEq/L Normal 4.0 - 15 .0 mEq/L ADM SS Eosinophils (Bld) [#/Vol] 0.1 103/mcL Normal 0.0 - 0.7 10^3/mcL Workflow SS Eosinophils/100 WBC (Bld) 2.2 % Normal 0.0 - 6.0 % Workflow SS Erythrocyte distribution width (RBC) [Ratio] 13.6 % Normal 11.5 - 15.5 % Workflow SS GFR/1.73 sq M.predicted among blacks MDRD (S/P/Bld) [Vol rate/Area] ml/min/1.73sqm Invalid Interpretation Code ADM SS Comment on above: Interpretive Data: GFR Population mean for , Non- Americans Ages 20-29 = 116 mL/min/1.73 sq.m. Ages 30-39 = 107 mL/min/1.73 sq.m. Ages 40-49 = 99 mL/min/1.73 sq.m. Ages 50-59 = 93 mL/min/1.73 sq.m. Ages 60-69 = 85 mL/min/1.73 sq.m. Ages 70+ = 75 mL/min/1.73 sq.m. Chronic Kidney Disease: Less than 60 mL/min/1.73 square meters End Stage Renal Disease: Less than 15 mL/min/1.73 square meters GFR/1.73 sq M.predicted among non-blacks MDRD (S/P/Bld) [Vol rate/Area] ml/min/1.73sqm Invalid Interpretation Code ADM SS Comment on above: Interpretive Data: GFR Population mean for , Non- Americans Ages 20-29 = 116 mL/min/1.73 sq.m. Ages 30-39 = 107 mL/min/1.73 sq.m. Ages 40-49 = 99 mL/min/1.73 sq.m. Ages 50-59 = 93 mL/min/1.73 sq.m. Ages 60-69 = 85 mL/min/1.73 sq.m. Ages 70+ = 75 mL/min/1.73 sq.m. Chronic Kidney Disease: Less than 60 mL/min/1.73 square meters End Stage Renal Disease: Less than 15 mL/min/1.73 square meters Globulin 3.8 G/dL Normal 1.5 - 3.8 G/dL ADM SS Glucose [Mass/Vol] 84 mg/dL Normal 82 - 115 mg/dL ADM SS Hematocrit (Bld) [Volume fraction] 37.9 % Normal 34.0 - 46.0 % Workflow SS Hemoglobin (Bld) [Mass/Vol] 12.7 G/dL Normal 12.0 - 16.0 G/dL Workflow SS Lymphocytes (Bld) [#/Vol] 1.4 103/mcL Normal 0.9 - 4.3 10^3/mcL Workflow SS Lymphocytes/100 WBC (Bld) 21.0 % Normal 20.0 - 40.0 % Workflow SS Magnesium [Mass/Vol] 2.0 mg/dL Normal 1.6 - 2 .4 mg/dL ADM SS MCH (RBC) [Entitic mass] 31.0 pg Normal 27.0 - 33.0 pg AH Workflow SS MCHC 33.6 G/dL Normal 32.0 - 36.0 G/dL AH Workflow SS MCV (RBC) [Entitic vol] 92.2 fL Normal 80.0 - 99.0 fL AH Workflow SS Monocytes (Bld) [#/Vol] 0.5 103/mcL Normal 0.1 - 1.4 10^3/mcL AH Workflow SS Monocytes/100 WBC (Bld) 7.5 % Normal 2.0 - 13.0 % AH Workflow SS Natriuretic peptide.B prohormone N-Terminal IA [Mass/Vol] 1874 pg/mL High 0 - 1800 pg/mL ADM SS Neutrophils (Bld) [#/Vol] 4.6 103/mcL Normal 2.3 - 8.1 10^3/mcL AH Workflow SS Neutrophils/100 WBC (Bld) 68.7 % Normal 50.0 - 75.0 % AH Workflow SS Platelet mean volume (Bld) [Entitic vol] 7.6 fL Normal 6.6 - 10.5 fL AH Workflow SS Platelets (Bld) [#/Vol] 293 103/mcL Normal 150 - 450 10^3/mcL AH Workflow SS Potassium [Moles/Vol] 3.6 mmol/L Normal 3.5 - 5.0 mEq/L ADM SS Protein [Mass/Vol] 6.9 G/dL Normal 5.7 - 8.2 G/dL ADM SS RBC (Bld) [#/Vol] 4.11 106/mcL Normal 4.10 - 5.3 0 10^6/mcL AH Workflow SS Sodium [Moles/Vol] 141 mmol/L Normal 136 - 145 mEq/L ADM SS Troponin I.cardiac DL <= 0.01 ng/mL [Mass/Vol] 143 ng/L High 0 - 34 ng/L ADM SS Comment on above: Interpretive Data: High Sensitive Troponin I Reference Ranges: Female: 0-34 ng/L Male: 0-54 ng/L Testing performed on [employer] analyzer using direct chemiluminescent technology. TSH Qn 4.449 mIU/mL Normal 0.550 - 4.780 mIU/mL ADM SS Urea nitrogen [Mass/Vol] 12.0 mg/dL Normal 8.0 - 22.0 mg/dL ADM SS Urea nitrogen/Creatinine [Mass ratio] 16.7 ratio Normal 10.0 - 22.0 ratio ADM SS WBC (Bld) [#/Vol] 6.7 103/mcL Normal 4.5 - 10.8 10^3/mcL AH Workflow SS MGon 01-25-2024 Magnesium [Mass/Vol] 2.0 mg/dL Normal 1.6-2.4 [facility] MAIN Comment on above: Performed By: #### A DIFF, CBC, GFR, ANEU, BMP, MG #### [place] [id number] PBNPon 01-25-2024 Natriuretic peptide B (Bld) [Mass/Vol] 1874 pg/mL High 0-[address] [place] [address] MAIN Comment on above: Performed By: #### A DIFF, CBC, GFR, ANEU, BMP, MG #### [place] [address] TROPHSon 01-25-2024 High Sensitivity Troponin I 78 ng/L [address] MAIN Comment on above: Result Comment: High Sensitive Troponin I Reference Ranges: Female: 0-34 ng/L Male: 0-54 ng/L Testing performed on [facility] IM analyzer using direct chemiluminescent technology. Performed By: #### A DIFF, CBC, GFR, ANEU, BMP, MG #### [place] [address] High Sensitivity Troponin I 120 ng/L [address] MAIN Comment on above: Result Comment: High Sensitive Troponin I Reference Ranges: Female: 0-34 ng/L Male: 0-54 ng/L Testing performed on [employer] IM analyzer using direct chemiluminescent technology. Performed By: #### A DIFF, CBC, GFR, ANEU, BMP, MG #### [place] [address] High Sensitivity Troponin I 143 ng/L [address] MAIN Comment on above: Result Comment: High Sensitive Troponin I Reference Ranges: Female: 0-34 ng/L Male: 0-54 ng/L Testing performed on [employer] IM analyzer using direct chemiluminescent technology. Performed By: #### A DIFF, CBC, GFR, ANEU, BMP, MG #### [place] [id number] [address] [place] [id number] TSHon 01-25-2024 TSH 4.449 mIU/mL Normal 0.550-4.780 [facility] MAIN Comment on above: Performed By: #### A DIFF, CBC, GFR, ANEU, BMP, MG #### [place] [id number] [place] [address] 12 Lead EKGon 01-24-2024 12 Lead EKG [facility] Cardiovascular Services [address] [place] [address] 12 Lead EKG 01/24/24 1013 MR#: [id number] Acct: [id number] Name: KALINA RUDD Rep #: [id number] : 1940 83 From: Meche Sutton MD Attending Dr: Status: DEP ER Ordering Dr: Mejia Shah DO Date: 01/24/24 Location: ED Sex: F C Admitted: Test Reason : HTN Blood Pressure : */* mmHG Vent. Rate : 62 BPM Atrial Rate : 62 BPM P-R Int : 134 ms QRS Dur : 86 ms QT Int : 408 ms P-R-T Axes : 41 -37 52 degrees QTcB Int : 414 ms Sinus rhythm with occasional Premature ventricular complexes Left axis deviation Nonspecific ST and T wave abnormality Abnormal ECG Confirmed by RADHA TERRAZAS, BARBARA ([id number]), supervising editor news reel EMILY MANTILLA ([id number]) on 01/28/2024 1:38:22 PM Referred By: TB Confirmed By: BARBARA SUTTON MD 01/28/24 1338 Date Meche Sutton MD CC: Dr. Karen Resendiz MD; Dr. Mejia Shah DO Signed Normal [facility] 12 Lead EKG [facility] Cardiovascular Services [address] [place] [address] 12 Lead EKG 01/25/24 0026 MR#: [id number] Acct: [id number] Name: KALINA RUDD Rep #: [id number] : 1940 83 From: Valdemar Kimble MD Attending Dr: Status: DEP ER Ordering Dr: Mejia Shah DO Date: 01/24/24 Location: ED Sex: F C Admitted: Test Reason : HTN Blood Pressure : */* mmHG Vent. Rate : 69 BPM Atrial Rate : 69 BPM P-R Int : 150 ms QRS Dur : 88 ms QT Int : 418 ms P-R-T Axes : 58 -34 61 degrees QTcB Int : 447 ms Sinus rhythm with Premature atrial complexes Left axis deviation Nonspecific T wave abnormality Abnormal ECG Confirmed by VALDEMAR KIMBLE MD ([id number]), supervising editor news reel EMILY MANTILLA ([id number]) on 01/28/2024 6:06:18 AM Referred By: ANDES Confirmed By: VALDEMAR KIMBLE MD 01/28/24 0606 Date Valdemar Kimble MD CC: Dr. Karen Resendiz MD; Dr. Mejai Shah DO Signed Normal [facility] Basic Metabolic Profile (BMP )on 01-24-2024 BUN/CRE 22.3 RATIO High 10-20 [facility] Comment on above: Order Comment: 1Y Performed By: #### L 100.0100, L501.5425, L500.2500, L501.5200, L300.3900, L503.6620, L300.4310 ####[facility] [address] [place], [address] CA,Total 9.3 mg/dL Normal 8.5-10.1 [facility] Comment on above: Order Comment: 1Y Performed By: #### L 100.0100, L501.5425, L500.2500, L501.5200, L300.3900, L503.6620, L300.4310 ####[facility] [address] [place], [address] Chloride [Moles/Vol] 110 mmol/L High 98-107 [facility] Comment on above: Order Comment: 1Y Performed By: #### L 100.0100, L501.5425, L500.2500, L501.5200, L300.3900, L503.6620, L300.4310 ####[facility] [address] [place], [address] CO2 [Moles/Vol] 23.0 mmol/L Normal 21.0-32.0 [facility] Comment on above: Order Comment: 1Y Performed By: #### L 100.0100, L501.5425, L500.2500, L501.5200, L300.3900, L503.6620, L300.4310 ####[facility] [address] [place], [address] Creatinine [Mass/Vol] 0.85 mg/dL Normal 0.55-1.02 [facility] Comment on above: Order Comment: 1Y Result Comment: The validity of the calculated GFR GFRAA in patients over 70 years has not been determined. Clinical correlation is essential. Performed By: #### L 100.0100, L501.5425, L500.2500, L501.5200, L300.3900, L503.6620, L300.4310 ####[facility] [address] [place], [address] ECRCL 44.00 ml/min Normal [facility] Comment on above: Order Comment: 1Y Performed By: #### L 100.0100, L501.5425, L500.2500, L501.5200, L300.3900, L503.6620, L300.4310 ####[facility] [address] [place], [address] EST GFR - AA 82 mL/min Normal >60 [facility] Comment on above: Order Comment: 1Y Result Comment: Afri can Faroese GFR Calc Performed By: #### L 100.0100, L501.5425, L500.2500, L501.5200, L300.3900, L503.6620, L300.4310 ####[facility] [address] [place], [address] GAP 6 Normal 5-15 [facility] Comment on above: Order Comment: 1Y Performed By: #### L 100.0100, L501.5425, L500.2500, L501.5200, L300.3900, L503.6620, L300.4310 ####[facility] [address] [place], [address] GFR/1.73 sq M.predicted among non-blacks MDRD (S/P/Bld) [Vol rate/Area] 68 mL/min/{1.73_m2} Normal >60 [facility] Comment on above: Order Comment: 1Y Result Comment: Non- GFR Calc Performed By: #### L 100.0100, L501.5425, L500.2500, L501.5200, L300.3900, L503.6620, L300.4310 ####[facility] [address] [place], [address] Glucose [Mass/Vol] 116 mg/dL High 74-106 [facility] Comment on above: Order Comment: 1Y Result Comment: Fast ing Glucose result from 100 to 125 mg/dL suggests IMPAIRED HOMEOSTASIS per A.D.A. criteria. Performed By: #### L 100.0100, L501.5425, L500.2500, L501.5200, L300.3900, L503.6620, L300.4310 ####[facility] [address] [place], [address] Potassium [Moles/Vol] 3.9 mmol/L Normal 3.5-5.1 [facility] Comment on above: Order Comment: 1Y Result Comment: Slig ht Hemolysis, Result may be falsely increased. Performed By: #### L 100.0100, L501.5425, L500.2500, L501.5200, L300.3900, L503.6620, L300.4310 ####[facility] [address] [place], [address] Sodium [Moles/Vol] 139 mmol/L Normal 136-145 [facility] Comment on above: Order Comment: 1Y Performed By: #### L 100.0100, L501.5425, L500.2500, L501.5200, L300.3900, L503.6620, L300.4310 ####[facility] [address] [place], [address] Urea nitrogen [Mass/Vol] 19 mg/dL High 7-18 [facility] Comment on above: Order Comment: 1Y Performed By: #### L 100.0100, L501.5425, L500.2500, L501.5200, L300.3900, L503.6620, L300.4310 ####[facility] [address] [place], [address] CBC W/Diff, Automatedon 01-10 Absolute Lymph 1.07 X10 3/uL Normal 0.83-4.51 [facility] Comment on above: Performed By: #### L 100.0100, L501.5425, L500.2500, L501.5200, L300.3900, L503.6620, L300.4310 ####[facility] [address] [place], [address] Absolute Neut 6.0 X10 3/uL Normal 2.0-7.7 [facility] Comment on above: Performed By: #### L 100.0100, L501.5425, L500.2500, L501.5200, L300.3900, L503.6620, L300.4310 ####[facility] [address] [place], [address] Basophils/100 WBC (Bld) 0.6 % Normal 0-1 [facility] Comment on above: Performed By: #### L 100.0100, L501.5425, L500.2500, L501.5200, L300.3900, L503.6620, L300.4310 ####[facility] [address] [place], [address] Eosinophils/100 WBC (Bld) 1.4 % Normal 0-5 [facility] Comment on above: Performed By: #### L 100.0100, L501.5425, L500.2500, L501.5200, L300.3900, L503.6620, L300.4310 ####[facility] [address] [place], [address] Erythrocyte distribution width (RBC) [Ratio] 13.0 % Normal 11.6-14.6 [facility] Comment on above: Performed By: #### L 100.0100, L501.5425, L500.2500, L501.5200, L300.3900, L503.6620, L300.4310 ####[facility] [address] [place], [address] Hematocrit (Bld) [Volume fraction] 40.3 % Normal 37-47 [facility] Comment on above: Performed By: #### L 100.0100, L501.5425, L500.2500, L501.5200, L300.3900, L503.6620, L300.4310 ####[facility] [address] [place], [address] Hemoglobin (Bld) [Mass/Vol] 13.3 g/dL Normal 12.0-15.0 [facility] Comment on above: Performed By: #### L 100.0100, L501.5425, L500.2500, L501.5200, L300.3900, L503.6620, L300.4310 ####[facility] [address] [place], [address] IG% 0.500 Normal 0.0-0.9 [facility] Comment on above: Result Comment: IG% - Immature Granulocytes (promyelocytes, myelocytes and metamyelocytes) > 1% indicates that a LEFT SHIFT is Present. Performed By: #### L 100.0100, L501.5425, L500.2500, L501.5200, L300.3900, L503.6620, L300.4310 ####[facility] [address] [place], [address] Lymphocytes/100 WBC (Bld) 13.6 % Low 19-41 [facility] Comment on above: Performed By: #### L 100.0100, L501.5425, L500.2500, L501.5200, L300.3900, L503.6620, L300.4310 ####[facility] [address] [place], [address] MCH (RBC) [Entitic mass] 30.3 pg Normal 27.0-32.0 [facility] Comment on above: Performed By: #### L 100.0100, L501.5425, L500.2500, L501.5200, L300.3900, L503.6620, L300.4310 ####[facility] [address] [place], [address] MCHC (RBC) [Mass/Vol] 33.0 g/dL Normal 32-36 [facility] Comment on above: Performed By: #### L 100.0100, L501.5425, L500.2500, L501.5200, L300.3900, L503.6620, L300.4310 ####[facility] [address] [place], [address] MCV (RBC) [Entitic vol] 91.8 fL Normal 81-99 [facility] Comment on above: Performed By: #### L 100.0100, L501.5425, L500.2500, L501.5200, L300.3900, L503.6620, L300.4310 ####[facility] [address] [place], [address] Monocytes/100 WBC (Bld) 7.0 % Normal 0-10 [facility] Comment on above: Performed By: #### L 100.0100, L501.5425, L500.2500, L501.5200, L300.3900, L503.6620, L300.4310 ####[facility] [address] [place], [address] Neutrophils/100 WBC (Bld) 76.9 % High 47-70 [facility] Comment on above: Performed By: #### L 100.0100, L501.5425, L500.2500, L501.5200, L300.3900, L503.6620, L300.4310 ####[facility] [address] [place], [address] Nucleated RBC (Bld) [#/Vol] 0 10*3/uL Normal 0-5 [facility] Comment on above: Performed By: #### L 100.0100, L501.5425, L500.2500, L501.5200, L300.3900, L503.6620, L300.4310 ####[facility] [address] [place], [address] Platelet mean volume (Bld) [Entitic vol] 9.4 fL Normal 6.2-12.0 [facility] Comment on above: Performed By: #### L 100.0100, L501.5425, L500.2500, L501.5200, L300.3900, L503.6620, L300.4310 ####[facility] [address] [place], [address] Platelets (Bld) [#/Vol] 318 10*3/uL Normal 150-450 [facility] Comment on above: Performed By: #### L 100.0100, L501.5425, L500.2500, L501.5200, L300.3900, L503.6620, L300.4310 ####[facility] [address] [place], [address] RBC (Bld) [#/Vol] 4.39 10*6/uL Normal 4.2-5.4 [facility] Comment on above: Performed By: #### L 100.0100, L501.5425, L500.2500, L501.5200, L300.3900, L503.6620, L300.4310 ####[facility] [address] [place], [address] RDW SD 43.7 fl Normal 35.1-43.9 [facility] Comment on above: Performed By: #### L 100.0100, L501.5425, L500.2500, L501.5200, L300.3900, L503.6620, L300.4310 ####[facility] [address] [place], [address] WBC (Bld) [#/Vol] 7.9 10*3/uL Normal 4.4-11.0 [facility] Comment on above: Performed By: #### L 100.0100, L501.5425, L500.2500, L501.5200, L300.3900, L503.6620, L300.4310 ####[facility] [address] [place], [address] CTA Chest W/WO Contraston CTA Chest W/WO Contrast [facility] Imaging Services [address] [place] [address] CTA Chest W/WO Contrast MR#: [id number] Acct: [id number] Name: KALINA RUDD Rep #: [id number] : 1940 F 83 From: Dar strong MD PCP: Dr. Karen Resendiz MD Status: REG ER Study: CTA Chest W/WO Contrast Date of Exam: 01/24/24 Exam# [id number] Ordering Dr: Mejia Shah DO [id number] STUDY: CTA CHEST REASON FOR EXAM: Female, 83 years old. elevated dimer, pain radiating to back RADIATION DOSAGE (If Supplied By Facility): CTDIvol = ( 6.05 ) mGy, DLP = ( 149.81 ) mGycm TECHNIQUE: The examination was performed with the intravenous administration of IV 100mL Isovue-370. Post-processing of the angiographic images was performed, with multiplanar reformation and 3D reconstruction. Individualized dose optimization techniques were used for this CT. COMPARISON: Chest x-ray dated January 24, 2024 FINDINGS: Cystic emphysematous changes are present with mild scattered interstitial fibrotic opacities. Mild groundglass edema is also present bilaterally. No visualized nodules or masses or spiculated lesions. No pleural effusion is present. No demonstrated pneumonic consolidation. No pneumothorax is present. Normal enhancement of the main pulmonary artery and right and left pulmonary arteries. Normal enhancement of the bilateral peripheral pulmonary arteries. There is no demonstrated pulmonary embolism. There is atherosclerotic calcification of the aortic arch with tortuosity. There is no demonstrated aortic dissection. Normal heart and pericardium. There are calcifications of the coronary arteries. Normal mediastinum. Normal hilar regions. Normal visualized trachea and bronchi. The lungs are well expanded. Normal chest wall structures. There are degenerative changes of thoracic spine. Included upper abdomen: Small hiatal hernia. The remaining visualized structures are unremarkable. Mild cortical atrophy of the kidneys. CT/CTA Chest W/WO Contrast IMPRESSION: 1. COPD/emphysema with mild groundglass edema either due to developing volume overload or pneumonitis 2. No demonstrated pulmonary embolism or arterial dissection. Electronically Signed: Dar Charles MD at 19:04 EST , CC: Dr. Karen Resendiz MD; Dr. Mejia Shah DO Poster: Signed Normal [facility] Chest PA and Lateralon 01-23 Chest PA and Lateral [facility] Imaging Services [address] [place], [place] [address] Chest PA and Lateral MR#: [id number] Acct: [id number] Name: KALINA RUDD Rep #: [id number] : 1940 F 83 From: Taisha Arora MD PCP: Dr. Karen Resendiz MD Status: REG ER Study: Chest PA and Lateral Date of Exam: 01/24/24 Exam# [id number] Ordering Dr: Mejia Shah DO [id number] INDICATION: chest pain EXAMINATION/TECHNIQUE: X-RAY - XR Chest 2 Views COMPARISON: January 17, 2024 FINDINGS: LINES/DEVICES: None. LUNGS: No new consolidation, edema or effusion. There is stable mild thickening of the right minor fissure. No pneumothorax. MEDIASTINUM AND CARDIOVASCULAR STRUCTURES: Cardiac silhouette not enlarged. Central airways and mediastinal contour are unremarkable. BONES AND SOFT TISSUES: Unremarkable. RAD/Chest PA and Lateral IMPRESSION: No radiographic evidence of acute cardiopulmonary disease. Electronically Signed: Taisha Arora MD at 11:22 EST , CC: Dr. Karen Resendiz MD; Dr. Mejia Shah DO Poster: Signed Normal [facility] D-Dimer Quantitative (DVT/PE )on 01-24-2024 D-DIMER QUANT 0.72 FEU/ug/m Invalid Interpretation Code 0.27-0.49 [facility] Comment on above: Result Comment: D-Di kimberli ELEVATED (>0.49): Additional studies and clinical assessments are indicated to conclude diagnosis of: Deep Vein Thrombosis (DVT) or Pulmonary Embolism (PE) CRITICAL VALUE CALLED TO GERTRUDE 01/24/24 1749 Tasneem Delaney. RESULTS READ BACK BY SAME. Performed By: #### L 300.8000 #### [facility] [address] [facility] [place], [address] Emergency Department Summary on 01-24-2024 Emergency Department Summary [facility] Medical Records Department [address] [place] [address] Emergency Department Summary 01/24/24 MR#: [id number] Acct: [id number] Name: KALINA RUDD Rep #: [id number] : 1940 83 From: Mejia Shah DO PCP: Dr. Karen Resendiz MD Status:REG ER Location: ED ADDENDUM by Dr. 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 No demonstrated PE or arterial dissection. 01/24/24 190 Cosigner Signature (if applicable): cc: Dr. Karen Resendiz MD * Signed ADDENDUM by Dr. Mejia Shah DO on 01/24/24 at 1752 Patient's troponin was reviewed and noted to be 250 which is down from 288. Patient's D-dimer was noted to be 0.72, however with age-adjusted D-dimer VTE is unlikely as the cutoff was 0.83. 01/24/24 1752 Cosigner Signature (if applicable): cc: Dr. Karen Resendiz MD * Signed ADDENDUM by Dr. Mejia Shah DO on 01/24/24 at 1721 Patient's repeat EKG was reviewed and was largely unchanged from the EKG at 1013 however there is noted in lead V1 the T wave has flipped. Patient's repeat troponin and D-dimer is pending. Patient is complaining of 8 out of 10 pain therefore she will be given morphine Zofran. 01/24/24 1721 Cosigner Signature (if applicable): cc: Dr. Karen Resendiz MD * Signed ADDENDUM by Dr. Mejia Shah DO on 01/24/24 at 1715 I was notified that the patient is complaining of 8 out of 10 chest pain that is radiating to her back between her shoulder blades. We will repeat an EKG, add on a third troponin as well as a D- dimer. Once these are obtained reviewed she will be reevaluated. Patient is still currently awaiting a bed at [facility]. 01/24/24 1715 Cosigner Signature (if applicable): cc: Dr. Karen Resendiz MD * Signed ADDENDUM by Dr. Mejia Shah DO on 01/24/24 at 1529 Patient's blood pressures and both of her arms were obtained manually and her right arm was 192/72 and her left arm was 198/68 this was prior to the clonidine given. Once again after clonidine given her blood pressure was 165/74. 01/24/24 1529 Cosigner Signature (if applicable): cc: Dr. Karen Resendiz MD * Signed HPI History of Present Illness Chief Complaint: Hypertension Narrative Narrative: Patient is a 83-year-old female with past medical history of hypertension, fibromyalgia, CAD status post recent stent placement at [facility] who presented to the emergency department the chief complaint of elevated blood pressure. Patient states that she was originally here was ultimately transferred to [facility] where there was discussion for PCI versus stent placement and she states that after discussion there they ultimately decided to undergo PCI placement. Patient notes that yesterday and today her blood pressure has been running high and she was concerned therefore she came here for further evaluation management. Patient states that she took all her morning meds including her blood pressure medication as well as her Plavix and aspirin. Patient outside of having elevated blood pressure as her complaint has no further complaints at this point time feels that her baseline. [facility] Medical History STEMI (ST elevation myocardial infarction) Acute coronary syndrome Fibromyalgia HTN (hypertension) Home Medications ???Medication ???Instructions ???Recorded ???Last Taken ???Type Omeprazole [Prilosec] 40 mg PO DAILY 08/23/13 02/23/16 05:00 History duloxetine 60 mg capsule,delayed 60 mg PO DAILY 08/23/13 08/23/13 08:00 History release gabapentin 300 mg capsule 300 mg PO TIDCM 08/23/13 08/23/13 08:00 History estradiol 0.01% (0.1 mg/gram) 1 applic vaginal 05/30/20 Unknown History vaginal cream metoprolol succinate 50 mg 50 mg PO DAILY 05/30/20 Unknown History tablet,extended release 24 hr amlodipine 2.5 mg tablet 2.5 mg PO DAILY 01/17/24 Unknown History aspirin 81 mg tablet,delayed 81 mg PO DAILY 01/24/24 Unknown History release clopidogrel 75 mg tablet 75 mg PO DAILY 01/24/24 Unknown History dorzolamide 2 % eye drops drp ophthalmic (eye) 01/24/24 Unknown History losartan 25 mg tablet 25 mg PO DAILY 01/24/24 Unknown History rosuvastatin 20 mg tablet 20 mg PO QHS 01/24/24 Unknown History Allergy/AdvReac Type Severity Reaction Status Date / Time amitriptyline Allergy Unknown Verified 01/17/24 18:45 codeine Allergy Chest Verified 01/17/24 18:45 tightness trazodone Allergy Other Verified 01/17/24 18:45 Social History Smoking Status: Never smoker (more content not included)... Normal [facility] L501.4020on 01-24-2024 TROPONIN-I HS 250 pg/mL Invalid Interpretation Code 3.0-54.0 [facility] Comment on above: Order Comment: 'TROP ' Serial specimen #1, #2 or #3: 3 Result Comment: Crit ical Result(s) Called at: 17:45:08 01/24/2024 by: АНДРЕЙ SAUCEDA. Results read back by Norberto Monk Please Note: New Test Units and Gender Specific Reference Ranges. For more information see Policy Stat Procedure [place] High Sensitivity Troponin (TNIH) and attachments. Performed By: #### L 501.4020 ####[facility] [address] [place], [address] TROPONIN-I HS 288 pg/mL Invalid Interpretation Code 3.0-54.0 [facility] Comment on above: Result Comment: Crit ical Result(s) Called at: 13:50:45 01/24/2024 by: Young Mckeon RN (ER). Results read back by same. Please Note: New Test Units and Gender Specific Reference Ranges. For more information see Policy Stat Procedure [place] High Sensitivity Troponin (TNIH) and attachments. Performed By: #### L 501.4020 ####[facility] [address] [place], [address] L501.5425on 01-24-2024 TROPONIN-I HS 334 pg/mL Invalid Interpretation Code 3.0-54.0 [facility] Comment on above: Order Comment: 1Y Result Comment: Crit ical Result(s) Called at: 11:38:26 01/24/2024 by: Young Mckeon RN (ER). Results read back by same. Please Note: New Test Units and Gender Specific Reference Ranges. For more information see Policy Stat Procedure [place] High Sensitivity Troponin (TNIH) and attachments. Performed By: #### L 100.0100, L501.5425, L500.2500, L501.5200, L300.3900, L503.6620, L300.4310 ####[facility] [address] [place], [address] Magnesiumon 01-24-2024 Magnesium [Mass/Vol] 2.1 mg/dL Normal 1.6-2.6 [facility] Comment on above: Order Comment: 1Y Result Comment: Slig ht Hemolysis, Result may be falsely increased. Performed By: #### L 100.0100, L501.5425, L500.2500, L501.5200, L300.3900, L503.6620, L300.4310 ####[facility] [address] [place], [place], [id number] Partial Thromboplast Timeon 01-24-2024 aPTT Coag (Bld) [Time] 26.6 s Normal 24.1-36.2 [facility] Comment on above: Performed By: #### L 100.0100, L501.5425, L500.2500, L501.5200, L300.3900, L503.6620, L300.4310 ####[facility] [address] [place], [place], [id number] Prothrombin Time w/INRon INR Coag (PPP) [Relative time] 1.1 {INR} Normal [facility] Comment on above: Performed By: #### L 100.0100, L501.5425, L500.2500, L501.5200, L300.3900, L503.6620, L300.4310 ####[facility] [address] [place], [place], [id number] PT Coag (PPP) [Time] 14.2 s Normal 11.7-14.9 [facility] Comment on above: Performed By: #### L 100.0100, L501.5425, L500.2500, L501.5200, L300.3900, L503.6620, L300.4310 ####[facility] [address] [place], [place], [phone] [facility] CNP[facility] Telephone (INTMWS) -- KALINA RUDD ([id number]) 1940 F T Date Time Provider Department 01/23/24 KAREN RESENDIZ During your visit today, we recorded the following information about you: Odessa Ackerman RN 01/23/2024 4:15 PM Signed Patient calls to report that her BP today has been a little elevated. 182/76 and 179/71 most recent HR 77. Patient denies any CP, SOB , headache, changes in vision, dizziness, weakness. Patient reports that she has not taken the as needed amlodipine for BP above 150/80. Instructed patient that she should take medication as ordered. Patient afraid she is not going to be able to find prescription. Notified patient that she has a prescription at [facility] if not able to locate. Reviewed care advice and red flag symptoms to go to ER with. Patient verbalizes understanding and will look for amlodipine. nurse is there now to assist patient. Patient to call back with any further questions. Odessa Ackerman RN Allergies As of Date: 01/23/2024 Noted Allergy Reaction AMITRIPTYLINE 10/01/2012 14 - Other: See Comments Comments: Could not urinate CODEINE 10/16/2004 Comments: chest pain SULFA (SULFONAMIDE ANTIBIOTICS) 03/31/2015 4 - Hives 7 - Swelling 9 - Itching TRAZODONE 10/16/2004 Comments: vivid dreams Date Reviewed: 01/17/2024 Reviewed by: Cristina Tellez RN - Fully Assessed Reason for Visit: Patient Question [5587] Prescriptions as of 01/23/2024 - metoprolol succinate ER (TOPROL XL) 50 mg 24 hr tablet Take 1 tablet by mouth once daily. - gabapentin (NEURONTIN) 300 mg capsule TAKE 2 CAPSULES THREE TIMES DAILY DIRECTED - amLODIPine (NORVASC) 2.5 mg tablet Take 1 tablet by mouth once daily. as needed for a blood pressure 150/80 or greater. - crisaborole 2 % Apply to affected area two times a day. Apply a thin film to affected area(s) 2 times daily - DULoxetine (CYMBALTA) 60 mg capsule Take 1 capsule by mouth once daily. - omeprazole (PRILOSEC) 40 mg capsule Take 1 capsule by mouth once daily. - estradiol (ESTRACE) 0.01 % (0.1 mg/gram) vaginal cream Apply to urethral opening for atrophic vaginitis. Two to three times a week. - clobetasol (TEMOVATE) 0.05 % ointment Actually gets compounded RX 0.07% through [facility] from [employer] to use twice weekly - [facility] [facility] probiotics--Yeast and Vaginal PH support probiotic. Probiotic blend. Takes 1 by mouth at bedtime - triamcinolone (KENALOG) 0.025 % ointment Apply 1 application to affected area twice daily as needed. uses near vaginal area - dorzolamide HCl/PF (DORZOLAMIDE, PF,) 2 % drop Use 1 Drop in eyes three times daily. 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/2015 Vitamin D deficiency [E55.9] 07/16/2016 Recurrent major depressive disorder, in partial*09/08/2017 Encounter Status:Closed by ODESSA ACKERMAN on 01/23/24 Normal [facility] .Auto Diffon 01-20-2024 Basophil, Absolute 0.0 10 3/mcL Normal 0.0-0.3 [facility] Comment on above: Performed By: #### A DIFF, CBC, GFR, ANEU, BMP, MG #### [address] [address] Eosinophil, Absolute 0.0 10 3/mcL Normal 0.0-0.7 [facility] Comment on above: Performed By: #### A DIFF, CBC, GFR, ANEU, BMP, MG #### [address] [address] Lymphocyte, Absolute 1.0 10 3/mcL Normal 0.9-4.3 [facility] Comment on above: Performed By: #### A DIFF, CBC, GFR, ANEU, BMP, MG #### [address] [address] Monocyte, Absolute 1.0 10 3/mcL Normal 0.1-1.4 [facility] Comment on above: Performed By: #### A DIFF, CBC, GFR, ANEU, BMP, MG #### [address] [address] .Auto DiffOrdered By: SYSTEM SYSTEM on 01-20-2024 Basophils/100 WBC (Bld) 0.2 % Normal 0.0-2.5 AH Workflow SS Comment on above: Performed By: #### A DIFF, CBC, GFR, ANEU, BMP, MG #### [address] [address] Eosinophils/100 WBC (Bld) 0.3 % Normal 0.0-6.0 AH Workflow SS Comment on above: Performed By: #### A DIFF, CBC, GFR, ANEU, BMP, MG #### [address] [address] Lymphocytes/100 WBC (Bld) 10.6 % Low 20.0-40.0 AH Workflow SS Comment on above: Performed By: #### A DIFF, CBC, GFR, ANEU, BMP, MG #### [address] [address] Monocytes/100 WBC (Bld) 10.3 % Normal 2.0-13.0 AH Workflow SS Comment on above: Performed By: #### A DIFF, CBC, GFR, ANEU, BMP, MG #### [address] [address] Neutrophils/100 WBC (Bld) 78.6 % High 50.0-75.0 AH Workflow SS Comment on above: Performed By: #### A DIFF, CBC, GFR, ANEU, BMP, MG #### [address] [address] .GFRon 01-20-2024 GFR >60 Normal [facility] Comment on above: Result Comment: GFR Population mean for , Non- Americans Ages 20-29 = 116 mL/min/1.73 sq.m. Ages 30-39 = 107 mL/min/1.73 sq.m. Ages 40-49 = 99 mL/min/1.73 sq.m. Ages 50-59 = 93 mL/min/1.73 sq.m. Ages 60-69 = 85 mL/min/1.73 sq.m. Ages 70+ = 75 mL/min/1.73 sq.m. Chronic Kidney Disease: Less than 60 mL/min/1.73 square meters End Stage Renal Disease: Less than 15 mL/min/1.73 square meters Performed By: #### A DIFF, CBC, GFR, ANEU, BMP, MG #### [address] [address] GFR Non- >60 Normal [facility] Comment on above: Result Comment: GFR Population mean for , Non- Americans Ages 20-29 = 116 mL/min/1.73 sq.m. Ages 30-39 = 107 mL/min/1.73 sq.m. Ages 40-49 = 99 mL/min/1.73 sq.m. Ages 50-59 = 93 mL/min/1.73 sq.m. Ages 60-69 = 85 mL/min/1.73 sq.m. Ages 70+ = 75 mL/min/1.73 sq.m. Chronic Kidney Disease: Less than 60 mL/min/1.73 square meters End Stage Renal Disease: Less than 15 mL/min/1.73 square meters Performed By: #### A DIFF, CBC, GFR, ANEU, BMP, MG #### [address] [address] .NEUABSon 01-20-2024 Neutrophil, Absolute 7.6 10 3/mcL Normal 2.3-8.1 [facility] Comment on above: Performed By: #### A DIFF, CBC, GFR, ANEU, BMP, MG #### [address] [address] [id number] By: SYSTEM SYSTEM on 01-20-2024 Glucose [Mass/Vol] 103 mg/dL Normal AH Aut o Chem SS Comment on above: Interpretive Data: E stimated average glucose (eAG) is a calculated value from Hemoglobin A1C and is claims customer service representative of the average blood glucose level in the last 2-3 month period. Normal range: less than 114 mg/dL Result Comment: Shara mated Average Glucose calculated by equation ((28.7xA1C)-46.7) Estimated average glucose (eAG) is a calculated value from Hemoglobin A1C and is claims customer service representative of the average blood glucose level in the last 2-3 month period. Normal range: less than 114 mg/dL Performed By: #### A DIFF, CBC, GFR, ANEU, BMP, MG #### [place] [address] HbA1c (Bld) [Mass fraction] 5.2 % Normal 4.0-6.0 Auto Chem SS Comment on above: Performed By: #### A DIFF, CBC, GFR, ANEU, BMP, MG #### [place] [address] BMPon 01-20-2024 BUN/Creatinine Ratio 14.7 ratio Normal 10.0-22.0 [facility] Comment on above: Performed By: #### A DIFF, CBC, GFR, ANEU, BMP, MG #### [address] [address] BMPOrdered By: SYSTEM SYSTEM on 01-20-2024 Calcium [Mass/Vol] 9.0 mg/dL Normal 8.7-10.4 ADM SS Comment on above: Performed By: #### A DIFF, CBC, GFR, ANEU, BMP, MG #### [address] [address] Chloride [Moles/Vol] 107 mmol/L Normal 98-110 A DM SS Comment on above: Performed By: #### A DIFF, CBC, GFR, ANEU, BMP, MG #### [address] [address] CO2 [Moles/Vol] 24 mmol/L Normal 22-32 ADM SS Comment on above: Performed By: #### A DIFF, CBC, GFR, ANEU, BMP, MG #### [place] [address] Creatinine [Mass/Vol] 0.75 mg/dL Normal 0.50-1.20 ADM SS Comment on above: Interpretive Data: Carlee combs performed on [employer] CH analyzer using enzymatic creatinine methodology. Result Comment: Test ing performed on [employer] CH analyzer using enzymatic creatinine methodology. Performed By: #### A DIFF, CBC, GFR, ANEU, BMP, MG #### [address] [address] Electrolyte Balance 7.0 mEq/L Normal 4.0-15.0 AH AD M SS Comment on above: Performed By: #### A DIFF, CBC, GFR, ANEU, BMP, MG #### [address] [address] Glucose [Mass/Vol] 102 mg/dL Normal 82-115 AH ADM SS Comment on above: Performed By: #### A DIFF, CBC, GFR, ANEU, BMP, MG #### [address] [address] Potassium [Moles/Vol] 3.9 mmol/L Normal 3.5-5.0 AH ADM SS Comment on above: Performed By: #### A DIFF, CBC, GFR, ANEU, BMP, MG #### [address] [address] Sodium [Moles/Vol] 138 mmol/L Normal 136-145 AH ADM SS Comment on above: Performed By: #### A DIFF, CBC, GFR, ANEU, BMP, MG #### [address] [address] Urea nitrogen [Mass/Vol] 11.0 mg/dL Normal 8.0-22.0 AH ADM SS Comment on above: Performed By: #### A DIFF, CBC, GFR, ANEU, BMP, MG #### [address] [address] CBCOrdered By: SYSTEM SYSTEM on 01-20-2024 Erythrocyte distribution width (RBC) [Ratio] 14.1 % Normal 11.5-15.5 AH Workflow SS Comment on above: Performed By: #### A DIFF, CBC, GFR, ANEU, BMP, MG #### [address] [address] Hematocrit (Bld) [Volume fraction] 36.6 % Normal 34.0-46.0 AH Workflow SS Comment on above: Performed By: #### A DIFF, CBC, GFR, ANEU, BMP, MG #### [address] [address] MCH (RBC) [Entitic mass] 31.1 pg Normal 27.0-33.0 AH Workflow SS Comment on above: Performed By: #### A DIFF, CBC, GFR, ANEU, BMP, MG #### [address] [address] MCHC 33.9 G/dL Normal 32.0-36.0 AH Workflow SS Comment on above: Performed By: #### A DIFF, CBC, GFR, ANEU, BMP, MG #### [place] [address] MCV (RBC) [Entitic vol] 91.6 fL Normal 80.0-99.0 AH Workflow SS Comment on above: Performed By: #### A DIFF, CBC, GFR, ANEU, BMP, MG #### [place] [address] Platelet mean volume (Bld) [Entitic vol] 8.5 fL Normal 6.6-10.5 AH Workflow SS Comment on above: Performed By: #### A DIFF, CBC, GFR, ANEU, BMP, MG #### [place] [address] CBCon 01-20-2024 Hgb 12.4 G/dL Normal 12.0-16.0 [facility] Comment on above: Performed By: #### A DIFF, CBC, GFR, ANEU, BMP, MG #### [place] [id number] Platelet 188 10 3/mcL Normal 150-450 [facility] Comment on above: Performed By: #### A DIFF, CBC, GFR, ANEU, BMP, MG #### [place] [id number] RBC 3.99 10 6/mcL Low 4.10-5.30 [facility] Comment on above: Performed By: #### A DIFF, CBC, GFR, ANEU, BMP, MG #### [place] [address] WBC 9.6 10 3/mcL Normal 4.5-10.8 [facility] Comment on above: Performed By: #### A DIFF, CBC, GFR, ANEU, BMP, MG #### [place] [address] LABORATORYOrdered By: SYSTEM SYSTEM on 01-20-2024 Basophils (Bld) [#/Vol] 0.0 103/mcL Normal 0.0 - 0.3 10^3/mcL Workflow SS Eosinophils (Bld) [#/Vol] 0.0 103/mcL Normal 0.0 - 0.7 10^3/mcL Workflow SS GFR/1.73 sq M.predicted among blacks MDRD (S/P/Bld) [Vol rate/Area] ml/min/1.73sqm Invalid Interpretation Code ADM SS Comment on above: Interpretive Data: GFR Population mean for , Non- Americans Ages 20-29 = 116 mL/min/1.73 sq.m. Ages 30-39 = 107 mL/min/1.73 sq.m. Ages 40-49 = 99 mL/min/1.73 sq.m. Ages 50-59 = 93 mL/min/1.73 sq.m. Ages 60-69 = 85 mL/min/1.73 sq.m. Ages 70+ = 75 mL/min/1.73 sq.m. Chronic Kidney Disease: Less than 60 mL/min/1.73 square meters End Stage Renal Disease: Less than 15 mL/min/1.73 square meters GFR/1.73 sq M.predicted among non-blacks MDRD (S/P/Bld) [Vol rate/Area] ml/min/1.73sqm Invalid Interpretation Code [facility] Comment on above: Interpretive Data: GFR Population mean for , Non- Americans Ages 20-29 = 116 mL/min/1.73 sq.m. Ages 30-39 = 107 mL/min/1.73 sq.m. Ages 40-49 = 99 mL/min/1.73 sq.m. Ages 50-59 = 93 mL/min/1.73 sq.m. Ages 60-69 = 85 mL/min/1.73 sq.m. Ages 70+ = 75 mL/min/1.73 sq.m. Chronic Kidney Disease: Less than 60 mL/min/1.73 square meters End Stage Renal Disease: Less than 15 mL/min/1.73 square meters Hemoglobin (Bld) [Mass/Vol] 12.4 G/dL Normal 12.0 - 16.0 G/dL Workflow SS Lymphocytes (Bld) [#/Vol] 1.0 103/mcL Normal 0.9 - 4.3 10^3/mcL Workflow SS Monocytes (Bld) [#/Vol] 1.0 103/mcL Normal 0.1 - 1.4 10^3/mcL Workflow SS Neutrophils (Bld) [#/Vol] 7.6 103/mcL Normal 2.3 - 8.1 10^3/mcL Workflow SS Platelets (Bld) [#/Vol] 188 103/mcL Normal 150 - 450 10^3/mcL Workflow SS RBC (Bld) [#/Vol] 3.99 106/mcL Low 4.10 - 5.3 0 10^6/mcL Workflow SS Urea nitrogen/Creatinine [Mass ratio] 14.7 ratio Normal 10.0 - 22.0 ratio ADM SS WBC (Bld) [#/Vol] 9.6 103/mcL Normal 4.5 - 10.8 10^3/mcL Workflow SS MGOrdered By: SYSTEM SYSTEM on 01-20-2024 Magnesium [Mass/Vol] 2.2 mg/dL Normal 1.6-2.4 A DM SS Comment on above: Performed By: #### A DIFF, CBC, GFR, ANEU, BMP, MG #### [address] [address] .Auto Diffon 01-19-2024 Basophil, Absolute 0.0 10 3/mcL Normal 0.0-0.3 [facility] Comment on above: Performed By: #### A DIFF, CBC, GFR, ANEU, BMP, MG #### [address] [address] Basophils/100 WBC (Bld) 0.2 % Normal 0.0-2.5 [facility] Comment on above: Performed By: #### A DIFF, CBC, GFR, ANEU, BMP, MG #### [address] [address] Eosinophil, Absolute 0.0 10 3/mcL Normal 0.0-0.7 [facility] Comment on above: Performed By: #### A DIFF, CBC, GFR, ANEU, BMP, MG #### [address] [address] Eosinophils/100 WBC (Bld) 0.1 % Normal 0.0-6.0 [facility] Comment on above: Performed By: #### A DIFF, CBC, GFR, ANEU, BMP, MG #### [address] [address] Lymphocyte, Absolute 2.1 10 3/mcL Normal 0.9-4.3 [facility] Comment on above: Performed By: #### A DIFF, CBC, GFR, ANEU, BMP, MG #### [address] [address] Lymphocytes/100 WBC (Bld) 17.4 % Low 20.0-40.0 [facility] Comment on above: Performed By: #### A DIFF, CBC, GFR, ANEU, BMP, MG #### [address] [address] Monocyte, Absolute 1.0 10 3/mcL Normal 0.1-1.4 [facility] Comment on above: Performed By: #### A DIFF, CBC, GFR, ANEU, BMP, MG #### [address] [address] Monocytes/100 WBC (Bld) 8.2 % Normal 2.0-13.0 [facility] Comment on above: Performed By: #### A DIFF, CBC, GFR, ANEU, BMP, MG #### [address] [address] Neutrophils/100 WBC (Bld) 74.1 % Normal 50.0-75.0 [facility] Comment on above: Performed By: #### A DIFF, CBC, GFR, ANEU, BMP, MG #### [address] [address] .GFRon 01-19-2024 GFR >60 Normal [facility] Comment on above: Result Comment: GFR Population mean for , Non- Americans Ages 20-29 = 116 mL/min/1.73 sq.m. Ages 30-39 = 107 mL/min/1.73 sq.m. Ages 40-49 = 99 mL/min/1.73 sq.m. Ages 50-59 = 93 mL/min/1.73 sq.m. Ages 60-69 = 85 mL/min/1.73 sq.m. Ages 70+ = 75 mL/min/1.73 sq.m. Chronic Kidney Disease: Less than 60 mL/min/1.73 square meters End Stage Renal Disease: Less than 15 mL/min/1.73 square meters Performed By: #### A DIFF, CBC, GFR, ANEU, BMP, MG #### [address] [address] GFR Non- 58 ml/min/1.73sqm [facility] Comment on above: Result Comment: GFR Population mean for , Non- Americans Ages 20-29 = 116 mL/min/1.73 sq.m. Ages 30-39 = 107 mL/min/1.73 sq.m. Ages 40-49 = 99 mL/min/1.73 sq.m. Ages 50-59 = 93 mL/min/1.73 sq.m. Ages 60-69 = 85 mL/min/1.73 sq.m. Ages 70+ = 75 mL/min/1.73 sq.m. Chronic Kidney Disease: Less than 60 mL/min/1.73 square meters End Stage Renal Disease: Less than 15 mL/min/1.73 square meters Performed By: #### A DIFF, CBC, GFR, ANEU, BMP, MG #### [address] [address] .NEUABSon 01-19-2024 Neutrophil, Absolute 8.8 10 3/mcL High 2.3-8.1 [facility] Comment on above: Performed By: #### A DIFF, CBC, GFR, ANEU, BMP, MG #### [address] [address] APTTon 01-19-2024 aPTT Coag (Bld) [Time] 51.4 s High 25.0-35.0 [facility] Comment on above: Result Comment: For Heparin anticoagulation therapy, the recommended therapeutic range is: 54-77 seconds (APTT Correlation with Anti-Xa therapeutic range of 0.3-0.7 units/ml). PLEASE REFERENCE THE PHARMACY PROTOCOL FOR DOSING. Performed By: #### A DIFF, CBC, GFR, ANEU, BMP, MG #### [address] [address] aPTT Coag (Bld) [Time] 47.6 s High 25.0-35.0 [facility] Comment on above: Result Comment: For Heparin anticoagulation therapy, the recommended therapeutic range is: 54-77 seconds (APTT Correlation with Anti-Xa therapeutic range of 0.3-0.7 units/ml). PLEASE REFERENCE THE PHARMACY PROTOCOL FOR DOSING. Performed By: #### A DIFF, CBC, GFR, ANEU, BMP, MG #### [address] [address] aPTT Coag (Bld) [Time] 49.7 s High 25.0-35.0 [facility] Comment on above: Result Comment: Spec imen hemolyzed. Results may be affected. For Heparin anticoagulation therapy, the recommended therapeutic range is: 54-77 seconds (APTT Correlation with Anti-Xa therapeutic range of 0.3-0.7 units/ml). PLEASE REFERENCE THE PHARMACY PROTOCOL FOR DOSING. Performed By: #### A DIFF, CBC, GFR, ANEU, BMP, MG #### [address] [address] [facility] BUN/Creatinine Ratio 17.2 ratio Normal 10.0-22.0 [facility] Comment on above: Performed By: #### A DIFF, CBC, GFR, ANEU, BMP, MG #### [address] [address] Calcium [Mass/Vol] 9.4 mg/dL Normal 8.7-10.4 [facility] Comment on above: Performed By: #### A DIFF, CBC, GFR, ANEU, BMP, MG #### [address] [address] Chloride [Moles/Vol] 103 mmol/L Normal 98-110 [facility] Comment on above: Performed By: #### A DIFF, CBC, GFR, ANEU, BMP, MG #### [address] [address] CO2 [Moles/Vol] 22 mmol/L Normal 22-32 [facility] Comment on above: Performed By: #### A DIFF, CBC, GFR, ANEU, BMP, MG #### [address] [address] Creatinine [Mass/Vol] 0.93 mg/dL Normal 0.50-1.20 [facility] Comment on above: Result Comment: Test ing performed on [employer] analyzer using enzymatic creatinine methodology. Performed By: #### A DIFF, CBC, GFR, ANEU, BMP, MG #### [address] [address] Electrolyte Balance 9.0 mEq/L Normal 4.0-15.0 [facility] Comment on above: Performed By: #### A DIFF, CBC, GFR, ANEU, BMP, MG #### [place] [id number] Glucose [Mass/Vol] 143 mg/dL High 82-115 [facility] Comment on above: Performed By: #### A DIFF, CBC, GFR, ANEU, BMP, MG #### [address] [address] Potassium [Moles/Vol] 3.2 mmol/L Low 3.5-5.0 [facility] Comment on above: Performed By: #### A DIFF, CBC, GFR, ANEU, BMP, MG #### [address] [address] Sodium [Moles/Vol] 134 mmol/L Low 136-145 [facility] Comment on above: Performed By: #### A DIFF, CBC, GFR, ANEU, BMP, MG #### [address] [address] Urea nitrogen [Mass/Vol] 16.0 mg/dL Normal 8.0-22.0 [facility] Comment on above: Performed By: #### A DIFF, CBC, GFR, ANEU, BMP, MG #### [address] [address] CBCon 01-19-2024 Erythrocyte distribution width (RBC) [Ratio] 13.9 % Normal 11.5-15.5 [facility] Comment on above: Performed By: #### A DIFF, CBC, GFR, ANEU, BMP, MG #### [place] [address] Hematocrit (Bld) [Volume fraction] 35.5 % Normal 34.0-46.0 [facility] Comment on above: Performed By: #### A DIFF, CBC, GFR, ANEU, BMP, MG #### [place] [address] Hgb 12.0 G/dL Normal 12.0-16.0 [facility] Comment on above: Performed By: #### A DIFF, CBC, GFR, ANEU, BMP, MG #### [place] [address] MCH (RBC) [Entitic mass] 30.7 pg Normal 27.0-33.0 [facility] Comment on above: Performed By: #### A DIFF, CBC, GFR, ANEU, BMP, MG #### [place] [address] MCHC 33.7 G/dL Normal 32.0-36.0 [facility] Comment on above: Performed By: #### A DIFF, CBC, GFR, ANEU, BMP, MG #### [place] [address] MCV (RBC) [Entitic vol] 90.9 fL Normal 80.0-99.0 [facility] Comment on above: Performed By: #### A DIFF, CBC, GFR, ANEU, BMP, MG #### [place] [address] Platelet 226 10 3/mcL Normal 150-450 [facility] Comment on above: Performed By: #### A DIFF, CBC, GFR, ANEU, BMP, MG #### [place] [id number] Platelet mean volume (Bld) [Entitic vol] 9.0 fL Normal 6.6-10.5 [facility] Comment on above: Performed By: #### A DIFF, CBC, GFR, ANEU, BMP, MG #### [facility] [address] [place] [address] RBC 3.90 10 6/mcL Low 4.10-5.30 [facility] Comment on above: Performed By: #### A DIFF, CBC, GFR, ANEU, BMP, MG #### [facility] [address] [place] [address] WBC 11.8 10 3/mcL High 4.5-10.8 [facility] Comment on above: Performed By: #### A DIFF, CBC, GFR, ANEU, BMP, MG #### [facility] [address] [place] [address] LABORATORYOrdered By: SYSTEM SYSTEM on 01-19-2024 aPTT Coag (Bld) [Time] 51.4 s High 25.0 - 35.0 seconds [facility] SS Comment on above: Interpretive Data: F or Heparin anticoagulation therapy, the recommended therapeutic range is: 54-77 seconds (APTT Correlation with Anti-Xa therapeutic range of 0.3-0.7 units/ml). PLEASE REFERENCE THE PHARMACY PROTOCOL FOR DOSING. aPTT Coag (Bld) [Time] 47.6 s High 25.0 - 35.0 seconds AH [facility] SS Comment on above: Interpretive Data: F or Heparin anticoagulation therapy, the recommended therapeutic range is: 54-77 seconds (APTT Correlation with Anti-Xa therapeutic range of 0.3-0.7 units/ml). PLEASE REFERENCE THE PHARMACY PROTOCOL FOR DOSING. Basophils (Bld) [#/Vol] 0.0 103/mcL Normal 0.0 - 0.3 10^3/mcL AH Workflow SS Basophils/100 WBC (Bld) 0.2 % Normal 0.0 - 2.5 % Workflow SS Calcium [Mass/Vol] 9.4 mg/dL Normal 8.7 - 10. 4 mg/dL ADM SS Chloride [Moles/Vol] 103 mmol/L Normal 98 - 11 0 mEq/L AH ADM SS CO2 [Moles/Vol] 22 mmol/L Normal 22 - 32 mEq/L ADM SS Creatinine [Mass/Vol] 0.93 mg/dL Normal 0.50 - 1.20 mg/dL ADM SS Comment on above: Interpretive Data: T esting performed on [employer] CH analyzer using enzymatic creatinine methodology. Electrolyte Balance 9.0 mEq/L Normal 4.0 - 15 .0 mEq/L ADM SS Eosinophils (Bld) [#/Vol] 0.0 103/mcL Normal 0.0 - 0.7 10^3/mcL Workflow SS Eosinophils/100 WBC (Bld) 0.1 % Normal 0.0 - 6.0 % Workflow SS Erythrocyte distribution width (RBC) [Ratio] 13.9 % Normal 11.5 - 15.5 % Workflow SS GFR/1.73 sq M.predicted among blacks MDRD (S/P/Bld) [Vol rate/Area] ml/min/1.73sqm Invalid Interpretation Code ADM Comment on above: Interpretive Data: GFR Population mean for , Non- Americans Ages 20-29 = 116 mL/min/1.73 sq.m. Ages 30-39 = 107 mL/min/1.73 sq.m. Ages 40-49 = 99 mL/min/1.73 sq.m. Ages 50-59 = 93 mL/min/1.73 sq.m. Ages 60-69 = 85 mL/min/1.73 sq.m. Ages 70+ = 75 mL/min/1.73 sq.m. Chronic Kidney Disease: Less than 60 mL/min/1.73 square meters End Stage Renal Disease: Less than 15 mL/min/1.73 square meters GFR/1.73 sq M.predicted among non-blacks MDRD (S/P/Bld) [Vol rate/Area] 58 ml/min/1.73sqm Invalid Interpretation Code [facility] Comment on above: Interpretive Data: GFR Population mean for , Non- Americans Ages 20-29 = 116 mL/min/1.73 sq.m. Ages 30-39 = 107 mL/min/1.73 sq.m. Ages 40-49 = 99 mL/min/1.73 sq.m. Ages 50-59 = 93 mL/min/1.73 sq.m. Ages 60-69 = 85 mL/min/1.73 sq.m. Ages 70+ = 75 mL/min/1.73 sq.m. Chronic Kidney Disease: Less than 60 mL/min/1.73 square meters End Stage Renal Disease: Less than 15 mL/min/1.73 square meters Glucose [Mass/Vol] 143 mg/dL High 82 - 115 mg/dL ADM SS Hematocrit (Bld) [Volume fraction] 35.5 % Normal 34.0 - 46.0 % AH Workflow SS Hemoglobin (Bld) [Mass/Vol] 12.0 G/dL Normal 12.0 - 16.0 G/dL AH Workflow SS Lymphocytes (Bld) [#/Vol] 2.1 103/mcL Normal 0.9 - 4.3 10^3/mcL AH Workflow SS Lymphocytes/100 WBC (Bld) 17.4 % Low 20.0 - 40.0 % AH Workflow SS Magnesium [Mass/Vol] 1.8 mg/dL Normal 1.6 - 2 .4 mg/dL ADM SS MCH (RBC) [Entitic mass] 30.7 pg Normal 27.0 - 33.0 pg Workflow SS MCHC 33.7 G/dL Normal 32.0 - 36.0 G/dL Workflow SS MCV (RBC) [Entitic vol] 90.9 fL Normal 80.0 - 99.0 fL Workflow SS Monocytes (Bld) [#/Vol] 1.0 103/mcL Normal 0.1 - 1.4 10^3/mcL AH Workflow SS Monocytes/100 WBC (Bld) 8.2 % Normal 2.0 - 13.0 % AH Workflow SS Neutrophils (Bld) [#/Vol] 8.8 103/mcL High 2.3 - 8.1 10^3/mcL AH Workflow SS Neutrophils/100 WBC (Bld) 74.1 % Normal 50.0 - 75.0 % Workflow SS Platelet mean volume (Bld) [Entitic vol] 9.0 fL Normal 6.6 - 10.5 fL Workflow SS Platelets (Bld) [#/Vol] 226 103/mcL Normal 150 - 450 10^3/mcL AH Workflow SS Potassium [Moles/Vol] 3.2 mmol/L Low 3.5 - 5.0 mEq/L AH ADM SS RBC (Bld) [#/Vol] 3.90 106/mcL Low 4.10 - 5.3 0 10^6/mcL AH Workflow SS Sodium [Moles/Vol] 134 mmol/L Low 136 - 145 mEq/L ADM SS Urea nitrogen [Mass/Vol] 16.0 mg/dL Normal 8.0 - 22.0 mg/dL AH ADM SS Urea nitrogen/Creatinine [Mass ratio] 17.2 ratio Normal 10.0 - 22.0 ratio AH ADM SS WBC (Bld) [#/Vol] 11.8 103/mcL High 4.5 - 10.8 10^3/mcL AH Workflow SS aPTT Coag (Bld) [Time] 49.7 s High 25.0 - 35.0 seconds AH [facility] SS Comment on above: Result Comment: Spec imen hemolyzed. Results may be affected. Interpretive Data: F or Heparin anticoagulation therapy, the recommended therapeutic range is: 54-77 seconds (APTT Correlation with Anti-Xa therapeutic range of 0.3-0.7 units/ml). PLEASE REFERENCE THE PHARMACY PROTOCOL FOR DOSING. MGon 01-19-2024 Magnesium [Mass/Vol] 1.8 mg/dL Normal 1.6-2.4 [facility] Comment on above: Performed By: #### A DIFF, CBC, GFR, ANEU, BMP, MG #### [address] [address] .Auto Diffon 01-18-2024 Basophil, Absolute 0.0 10 3/mcL Normal 0.0-0.3 [facility] Comment on above: Performed By: #### A DIFF, CBC, GFR, ANEU, BMP, MG #### [address] [address] Basophils/100 WBC (Bld) 0.2 % Normal 0.0-2.5 [facility] Comment on above: Performed By: #### A DIFF, CBC, GFR, ANEU, BMP, MG #### [address] [address] Eosinophil, Absolute 0.0 10 3/mcL Normal 0.0-0.7 [facility] Comment on above: Performed By: #### A DIFF, CBC, GFR, ANEU, BMP, MG #### [address] [address] Eosinophils/100 WBC (Bld) 0.0 % Normal 0.0-6.0 [facility] Comment on above: Performed By: #### A DIFF, CBC, GFR, ANEU, BMP, MG #### [address] [address] Lymphocyte, Absolute 0.6 10 3/mcL Low 0.9-4.3 [facility] Comment on above: Performed By: #### A DIFF, CBC, GFR, ANEU, BMP, MG #### [address] [address] Lymphocytes/100 WBC (Bld) 5.8 % Low 20.0-40.0 [facility] Comment on above: Performed By: #### A DIFF, CBC, GFR, ANEU, BMP, MG #### [address] [address] Monocyte, Absolute 0.4 10 3/mcL Normal 0.1-1.4 [facility] Comment on above: Performed By: #### A DIFF, CBC, GFR, ANEU, BMP, MG #### [address] [address] Monocytes/100 WBC (Bld) 3.7 % Normal 2.0-13.0 [facility] Comment on above: Performed By: #### A DIFF, CBC, GFR, ANEU, BMP, MG #### [address] [address] Neutrophils/100 WBC (Bld) 90.3 % High 50.0-75.0 [facility] Comment on above: Performed By: #### A DIFF, CBC, GFR, ANEU, BMP, MG #### [address] [address] .GFRon 01-18-2024 GFR >60 Normal [facility] Comment on above: Result Comment: GFR Population mean for , Non- Americans Ages 20-29 = 116 mL/min/1.73 sq.m. Ages 30-39 = 107 mL/min/1.73 sq.m. Ages 40-49 = 99 mL/min/1.73 sq.m. Ages 50-59 = 93 mL/min/1.73 sq.m. Ages 60-69 = 85 mL/min/1.73 sq.m. Ages 70+ = 75 mL/min/1.73 sq.m. Chronic Kidney Disease: Less than 60 mL/min/1.73 square meters End Stage Renal Disease: Less than 15 mL/min/1.73 square meters Performed By: #### A DIFF, CBC, GFR, ANEU, BMP, MG #### [address] [address] GFR Non- >60 Normal [facility] Comment on above: Result Comment: GFR Population mean for , Non- Americans Ages 20-29 = 116 mL/min/1.73 sq.m. Ages 30-39 = 107 mL/min/1.73 sq.m. Ages 40-49 = 99 mL/min/1.73 sq.m. Ages 50-59 = 93 mL/min/1.73 sq.m. Ages 60-69 = 85 mL/min/1.73 sq.m. Ages 70+ = 75 mL/min/1.73 sq.m. Chronic Kidney Disease: Less than 60 mL/min/1.73 square meters End Stage Renal Disease: Less than 15 mL/min/1.73 square meters Performed By: #### A DIFF, CBC, GFR, ANEU, BMP, MG #### [address] [address] .NEUABSon 01-18-2024 Neutrophil, Absolute 9.8 10 3/mcL High 2.3-8.1 [facility] Comment on above: Performed By: #### A DIFF, CBC, GFR, ANEU, BMP, MG #### [address] [address] 12 Lead EKGon 01-18-2024 12 Lead EKG [facility] Cardiovascular Services [address] [place] [address] 12 Lead EKG 01/18/24 0045 MR#: [id number] Acct: [id number] Name: KALINA RUDD Rep #: [id number] : 1940 83 From: Valdemar Kimble MD Attending Dr: Dr. Billy Wise MD Status: DEP CLI Ordering Dr: Billy Wise MD Date: 01/18/24 Location: ICUOUT Sex: F C Admitted: Test Reason : post cath Blood Pressure : */* mmHG Vent. Rate : 100 BPM Atrial Rate : 100 BPM P-R Int : 152 ms QRS Dur : 88 ms QT Int : 356 ms P-R-T Axes : 65 -24 141 degrees QTcB Int : 459 ms Sinus rhythm with occasional Premature ventricular complexes Marked ST abnormality, possible inferior subendocardial injury Abnormal ECG When compared with ECG of 17-Jan-2024 22:24, MANUAL COMPARISON REQUIRED DATA IS UNCONFIRMED Confirmed by CODY TERRAZAS, VALDEMAR ([id number]), supervising editor news reel EMILY MANTILLA ([id number]) on 01/20/2024 6:10:01 AM Referred By: Cynthia Confirmed By: VALDEMAR KIMBLE MD 01/20/24 0610 Date Valdemar Kimble MD CC: Dr. Billy Wise MD; Dr. Karen Resendiz MD Signed [facility] 01-18-2024 aPTT Coag (Bld) [Time] 86.9 s High 25.0-35.0 [facility] Comment on above: Result Comment: For Heparin anticoagulation therapy, the recommended therapeutic range is: 54-77 seconds (APTT Correlation with Anti-Xa therapeutic range of 0.3-0.7 units/ml). PLEASE REFERENCE THE PHARMACY PROTOCOL FOR DOSING. Performed By: #### A DIFF, CBC, GFR, ANEU, BMP, MG #### [address] [address] aPTT Coag (Bld) [Time] 58.6 s High 25.0-35.0 [facility] Comment on above: Result Comment: Spec imen hemolyzed. Results may be affected. For Heparin anticoagulation therapy, the recommended therapeutic range is: 54-77 seconds (APTT Correlation with Anti-Xa therapeutic range of 0.3-0.7 units/ml). PLEASE REFERENCE THE PHARMACY PROTOCOL FOR DOSING. Performed By: #### A DIFF, CBC, GFR, ANEU, BMP, MG #### [address] [address] aPTT Coag (Bld) [Time] 94.6 s High 25.0-35.0 [facility] Comment on above: Result Comment: For Heparin anticoagulation therapy, the recommended therapeutic range is: 54-77 seconds (APTT Correlation with Anti-Xa therapeutic range of 0.3-0.7 units/ml). PLEASE REFERENCE THE PHARMACY PROTOCOL FOR DOSING. Performed By: #### A DIFF, CBC, GFR, ANEU, BMP, MG #### [address] [address] aPTT Coag (Bld) [Time] 100.6 s High 25.0-35.0 [facility] Comment on above: Result Comment: For Heparin anticoagulation therapy, the recommended therapeutic range is: 54-77 seconds (APTT Correlation with Anti-Xa therapeutic range of 0.3-0.7 units/ml). PLEASE REFERENCE THE PHARMACY PROTOCOL FOR DOSING. Performed By: #### A DIFF, CBC, GFR, ANEU, BMP, MG #### [address] [address] BMPon 01-18-2024 BUN/Creatinine Ratio 25.6 ratio High 10.0-22.0 [facility] Comment on above: Performed By: #### A DIFF, CBC, GFR, ANEU, BMP, MG #### [address] [address] Calcium [Mass/Vol] 9.9 mg/dL Normal 8.7-10.4 [facility] Comment on above: Performed By: #### A DIFF, CBC, GFR, ANEU, BMP, MG #### [address] [address] Chloride [Moles/Vol] 106 mmol/L Normal 98-110 [facility] Comment on above: Performed By: #### A DIFF, CBC, GFR, ANEU, BMP, MG #### [address] [address] CO2 [Moles/Vol] 21 mmol/L Low 22-32 [facility] Comment on above: Performed By: #### A DIFF, CBC, GFR, ANEU, BMP, MG #### [address] [address] Creatinine [Mass/Vol] 0.78 mg/dL Normal 0.50-1.20 [facility] Comment on above: Result Comment: Test ing performed on [employer] analyzer using enzymatic creatinine methodology. Performed By: #### A DIFF, CBC, GFR, ANEU, BMP, MG #### [address] [address] Electrolyte Balance 9.0 mEq/L Normal 4.0-15.0 [facility] Comment on above: Performed By: #### A DIFF, CBC, GFR, ANEU, BMP, MG #### [address] [address] Glucose [Mass/Vol] 155 mg/dL High 82-115 [facility] Comment on above: Performed By: #### A DIFF, CBC, GFR, ANEU, BMP, MG #### [address] [address] Potassium [Moles/Vol] 4.1 mmol/L Normal 3.5-5.0 [facility] Comment on above: Result Comment: Spec imen slightly hemolyzed. Performed By: #### A DIFF, CBC, GFR, ANEU, BMP, MG #### [place] [id number] Sodium [Moles/Vol] 136 mmol/L Normal 136-145 [facility] Comment on above: Performed By: #### A DIFF, CBC, GFR, ANEU, BMP, MG #### [address] [address] Urea nitrogen [Mass/Vol] 20.0 mg/dL Normal 8.0-22.0 [facility] Comment on above: Performed By: #### A DIFF, CBC, GFR, ANEU, BMP, MG #### [address] [address] CBCon 01-18-2024 Erythrocyte distribution width (RBC) [Ratio] 13.7 % Normal 11.5-15.5 [facility] Comment on above: Performed By: #### A DIFF, CBC, GFR, ANEU, BMP, MG #### [address] [address] Hematocrit (Bld) [Volume fraction] 42.2 % Normal 34.0-46.0 [facility] Comment on above: Performed By: #### A DIFF, CBC, GFR, ANEU, BMP, MG #### [address] [address] Hgb 14.5 G/dL Normal 12.0-16.0 [facility] Comment on above: Performed By: #### A DIFF, CBC, GFR, ANEU, BMP, MG #### [address] [address] MCH (RBC) [Entitic mass] 31.0 pg Normal 27.0-33.0 [facility] Comment on above: Performed By: #### A DIFF, CBC, GFR, ANEU, BMP, MG #### [place] [address] MCHC 34.4 G/dL Normal 32.0-36.0 [facility] Comment on above: Performed By: #### A DIFF, CBC, GFR, ANEU, BMP, MG #### [place] [address] MCV (RBC) [Entitic vol] 90.3 fL Normal 80.0-99.0 [facility] Comment on above: Performed By: #### A DIFF, CBC, GFR, ANEU, BMP, MG #### [place] [address] Platelet 233 10 3/mcL Normal 150-450 [facility] Comment on above: Performed By: #### A DIFF, CBC, GFR, ANEU, BMP, MG #### [place] [address] Platelet mean volume (Bld) [Entitic vol] 8.5 fL Normal 6.6-10.5 [facility] Comment on above: Performed By: #### A DIFF, CBC, GFR, ANEU, BMP, MG #### [place] [id number] RBC 4.68 10 6/mcL Normal 4.10-5.30 [facility] Comment on above: Performed By: #### A DIFF, CBC, GFR, ANEU, BMP, MG #### [place] [id number] WBC 10.9 10 3/mcL High 4.5-10.8 [facility] Comment on above: Performed By: #### A DIFF, CBC, GFR, ANEU, BMP, MG #### [facility] [address] [place] [id number] CBC-Complete Blood Cnt No Di ffon 01-18-2024 HCT Normal 37-47 [facility] Comment on above: Result Comment: Canc elled via OM: Order cancelled - Patient discharged Performed By: #### L 100.0500, L500.4050 ####[facility] [address] [place], [address] HGB Normal 12.0-15.0 [facility] Comment on above: Result Comment: Canc elled via OM: Order cancelled - Patient discharged Performed By: #### L 100.0500, L500.4050 ####[facility] [address] [place], [address] MCH Normal 27.0-32.0 [facility] Comment on above: Result Comment: Canc elled via OM: Order cancelled - Patient discharged Performed By: #### L 100.0500, L500.4050 ####[facility] [address] [place], [address] MCHC Normal 32-36 [facility] Comment on above: Result Comment: Canc elled via OM: Order cancelled - Patient discharged Performed By: #### L 100.0500, L500.4050 ####[facility] [address] [place], [address] MCV Normal 81-99 [facility] Comment on above: Result Comment: Canc elled via OM: Order cancelled - Patient discharged Performed By: #### L 100.0500, L500.4050 ####[facility] [address] [place], [address] PLT Normal 150-450 [facility] Comment on above: Result Comment: Canc elled via OM: Order cancelled - Patient discharged Performed By: #### L 100.0500, L500.4050 ####[facility] [address] [place], [address] RBC Normal 4.2-5.4 [facility] Comment on above: Result Comment: Canc elled via OM: Order cancelled - Patient discharged Performed By: #### L 100.0500, L500.4050 ####[facility] [address] [place], [address] RDW CV Normal 11.6-14.6 [facility] Comment on above: Result Comment: Canc elled via OM: Order cancelled - Patient discharged Performed By: #### L 100.0500, L500.4050 ####[facility] [address] [place], [address] RDW SD Normal 35.1-43.9 [facility] Comment on above: Result Comment: Canc elled via OM: Order cancelled - Patient discharged Performed By: #### L 100.0500, L500.4050 ####[facility] [address] [place], [address] WBC Normal 4.4-11.0 [facility] Comment on above: Result Comment: Canc elled via OM: Order cancelled - Patient discharged Performed By: #### L 100.0500, L500.4050 ####[facility] [address] [place], [address] CVS/PCIREPORTon 01-18-2024 CVS/PCIREPORT [facility] Cardiovascular Services [address] [place] [address] MR#: [id number] Acct: [id number] Name: KALINA RUDD Rep #: [id number] : 1940 83 From: Billy Wise MD Primary Care: Dr. Karen Resendiz MD Status: ADM IN Referring Dr: Sex: F C PCI Cardiac Cath Report PCI Report: Cardiac cath report. Procedure performed; 1. Access from the right common femoral artery with placement of 6 Lithuanian sheath 2. Selective left coronary angiography 3. Selective right coronary angiography 4. Suture applied to right common femoral artery sheath. Preprocedure diagnosis 83-year-old patient brought into the ER Patient presented to the ED for hypertension control While in the ER she started to complain of symptoms of chest pain EKG was obtained which showed diffuse ST depression noted with some ST elevation noted in the aVR. She had 2 sets of cardiac biomarker which were negative Review of the current evaluation in the hospital patient was given heparin Brilinta aspirin. And was brought into the [facility] for further Had history of hypertension she was brought in for hypertension evaluation. She did mention that for the last few months since she has been having issues controlling her hypertension while in the hospital ER she complained of retrosternal chest pain patient was given aspirin which relieved her symptoms still having persistent discomfort in the chest she had a CT head which is negative Coronary angiography; 1. Left main is calcified, bifurcating into LAD and left circumflex. Angiographically the left main has no significant atherosclerosis 2. Left anterior descending had diffuse atherosclerosis of around 60-70% involving the mid LAD LAD has a ROBBY-3 flow It has a large 33rd diagonal branch The first diagonal branch has diffuse atherosclerosis of around 50-60%. 3. The left circumflex is calcified proximally. Very complex lesion of the left circumflex the OM1,is a large vessel with subtotal 99% stenosis. The proximal part of the circumflex artery also has at least 99% stenosis. The second obtuse marginal branch is occluded/OM 2 There is left to right collaterals. 4. RCA is small with diffuse 99% stenosis. Conclusion recommendation. This is a complex coronary anatomy, multivessel CAD with tortuous proximal circumflex with complex lesion involving the proximal circumflex as well as OM1 and OM 2 branches. Angiographically also possible the distal left circumflex is occluded. And there is a diffuse atherosclerosis of the LAD as well as a RCA which is not large. Based on the clinical presentation patient remains stable after she had the angiogram suture applied to right common femoral artery sheath We continue on heparin as well will continue on nitroglycerin and her blood pressure was significant elevated in the [facility] around 170 mmHg. She still having mild symptoms of chest pain. I discussed in detail with the family including her son and . And patient to be transferred to a tertiary facility with a backup CTS team As she has a complex lesion involving a large dominant circumflex artery. With probable needing a high risk PCI and intervention to the circumflex as well as to OM1 and OM 2. And possible elective evaluation of the LAD at some point. RCA is scan of diffuse subtotal. Also in the ER patient was given Brilinta heparin and aspirin. Will continue on heparin drip as well as nitroglycerin. And will admit the patient to the intensive care unit with the plan of transfer to a tertiary facility No complication in the [facility] patient remains stable clinically. Billy Wise MD,[facility] mechanical systems control engineer 01/18/2423 Date Billy Wise MD CC: Dr. Billy Wise MD; Dr. Karen Resendiz MD Date Dictated: 01/18/2413 Date Transcribed: 01/18/2413 Poster: FB Signed Normal [facility] Comprehensive Metabolic Prof ilon 01-18-2024 ALB Normal 3.2-5.0 [facility] Comment on above: Result Comment: Canc elled via OM: Order cancelled - Patient discharged Performed By: #### L 100.0500, L500.4050 ####[facility] [address] [place], [address] ALK P Normal 45-117 [facility] Comment on above: Result Comment: Canc elled via OM: Order cancelled - Patient discharged Performed By: #### L 100.0500, L500.4050 ####[facility] [address] [place], [address] ALT Normal 13-56 [facility] Comment on above: Result Comment: Canc elled via OM: Order cancelled - Patient discharged Performed By: #### L 100.0500, L500.4050 ####[facility] [address] [place], [address] AST Normal 15-37 [facility] Comment on above: Result Comment: Canc elled via OM: Order cancelled - Patient discharged Performed By: #### L 100.0500, L500.4050 ####[facility] [address] [place], [address] BUN Normal 7-18 [facility] Comment on above: Result Comment: Canc elled via OM: Order cancelled - Patient discharged Performed By: #### L 100.0500, L500.4050 ####[facility] [address] [place], [address] BUN/CRE Normal 10-20 [facility] Comment on above: Result Comment: Canc elled via OM: Order cancelled - Patient discharged Performed By: #### L 100.0500, L500.4050 ####[facility] [address] [place], [address] CA,Total Normal 8.5-10.1 [facility] Comment on above: Result Comment: Canc elled via OM: Order cancelled - Patient discharged Performed By: #### L 100.0500, L500.4050 ####[facility] [address] [place], [address] CL Normal 98-107 [facility] Comment on above: Result Comment: Canc elled via OM: Order cancelled - Patient discharged Performed By: #### L 100.0500, L500.4050 ####[facility] [address] [place], [address] CO2 Normal 21.0-32.0 [facility] Comment on above: Result Comment: Canc elled via OM: Order cancelled - Patient discharged Performed By: #### L 100.0500, L500.4050 ####[facility] [address] [place], [address] CREAT,SERUM Normal 0.55-1.02 [facility] Comment on above: Result Comment: Canc elled via OM: Order cancelled - Patient discharged Performed By: #### L 100.0500, L500.4050 ####[facility] [address] [place], [address] EST GFR Normal >60 [facility] Comment on above: Result Comment: Canc elled via OM: Order cancelled - Patient discharged Performed By: #### L 100.0500, L500.4050 ####[facility] [address] [place], [address] EST GFR - AA Normal >60 [facility] Comment on above: Result Comment: Canc elled via OM: Order cancelled - Patient discharged Performed By: #### L 100.0500, L500.4050 ####[facility] [address] [place], [address] GAP Normal 5-15 [facility] Comment on above: Result Comment: Canc elled via OM: Order cancelled - Patient discharged Performed By: #### L 100.0500, L500.4050 ####[facility] [address] [place], [address] GLU Normal 74-106 [facility] Comment on above: Result Comment: Canc elled via OM: Order cancelled - Patient discharged Performed By: #### L 100.0500, L500.4050 ####[facility] [address] [place], [address] Potassium Normal 3.5-5.1 [facility] Comment on above: Result Comment: Canc elled via OM: Order cancelled - Patient discharged Performed By: #### L 100.0500, L500.4050 ####[facility] [address] [place], [address] T BILI Normal 0.20-1.00 [facility] Comment on above: Result Comment: Canc elled via OM: Order cancelled - Patient discharged Performed By: #### L 100.0500, L500.4050 ####[facility] [address] [place], [address] T PROT Normal 6.4-8.2 [facility] Comment on above: Result Comment: Canc elled via OM: Order cancelled - Patient discharged Performed By: #### L 100.0500, L500.4050 ####[facility] [address] [place], [address] Comprehensive Metabolic Profil Normal 136-145 [facility] Comment on above: Result Comment: Canc elled via OM: Order cancelled - Patient discharged Performed By: #### L 100.0500, L500.4050 ####[facility] [address] [place], [address] Consultation - Cardiologyon 01-18-2024 Consultation - Cardiology [facility] Medical Records Department [address] [place] [address] Consultation - Cardiology 01/18/24 0029 MR#: [id number] Acct: [id number] Name: KALINA RUDD Rep #: [id number] : 1940 83 From: Billy Wise MD PCP: Dr. Karen Resendiz MD Status:[facility] Location: [facility] Assessment Plan Assessment/Plan (1) Fibromyalgia: (2) HTN (hypertension): (3) Acute coronary syndrome: (4) Abnormal EKG: PLAN: Cardiac care plan recommendations; 83-year-old patient brought in by the family to the ED at [facility] With a history of hypertension she was brought in for hypertension evaluation. Patient did mention that for the past month she has been having issues controlling her blood pressure. And she was on treatment with a beta-janay metoprolol as well as amlodipine. And still her systolic blood pressure was greater than 150. And she started to complain of intermittent headache CT head was obtained which showed no significant abnormality mild chronic ischemic change. And while she was in the ED she started to complain of symptoms of chest pain An EKG was obtained which showed significantly abnormal ST depression diffuse Also noted ST elevation in the aVR. She had 2 sets of cardiac markers which were negative I reviewed all the current lab evaluation Her serum creatinine was mildly elevated 1.3 Cardiac care plan; Based on her clinical presentation I took the patient to the [facility] for further evaluation Her radial access was difficult and then we went from the right common femoral artery obtain an access and placed 6 Lithuanian sheath and then we will proceed with the diagnostic catheter and we noted the patient had very complex coronary lesion involving the left circumflex artery proximally around subtotal 99 tortuous And the Pharis large obtuse marginal had a subtotal 99% The OM 2 is occluded In the distal circumflex artery atherosclerosis distally with possible occluded distal circumflex There is [id number] collateral The left main is calcified however angiographically there is no significant atherosclerosis involving the left main The LAD had diffuse atherosclerosis of around 60-70 In the Pharis subdiagonal branch had a similar lesion of around 50???60 with diffuse atherosclerosis RCA small and had a subtotal 99% proximally. Based on her clinical presentation patient deemed to be a very high risk with the requirement for a high risk PCI. She was given heparin Brilinta and aspirin in the ER will continue heparin drip as well as nitroglycerin drip. Her blood pressure was stable she does not require balloon pump at this point because she had stable blood pressure and symptoms of chest pain is controlled with nitroglycerin. I discussed in detail the cardiac care plan with the team here as well as with her family including her son and her as well. And patient will be transferred to tertiary facility to evaluate and assess for high risk PCI. She will be admitted in the intensive care unit Also noted patient developed V-fib in the [place] [employer] requiring to be shocked 3 times to maintain sinus rhythm and she was given amiodarone 150 mg IV in the [place] [employer]. Patient started on nitroglycerin IV she was given aspirin and she was given amiodarone, Brilinta in the ER. Suture applied to right common femoral artery sheath. Also started on atorvastatin. Nitroglycerin drip. Billy Wise MD,FAC,[facility] mechanical systems control engineer HPI Consult Data Date of Consult: 03/12/24 HPI Narrative Reason for Consultation: Acute coronary syndrome/diffuse ST depression with chest pain HPI Narrative: KALINA RUDD, is a 83 F who presents [facility] Medical History History of left heart catheterization STEMI (ST elevation myocardial infarction) Acute coronary syndrome Fibromyalgia HTN (hypertension) Home Medications ???Medication ???Instructions ???Recorded ???Last Taken ???Type Omeprazole [Prilosec] 40 mg PO DAILY 08/23/13 02/23/16 0 5:00 History duloxetine 60 mg capsule,delayed 60 mg PO DAILY 08/23/13 08/23/13 0 8:00 History release metoprolol succinate 50 mg 50 mg PO DAILY 05/30/20 Unknown Hi story tablet,extended release 24 hr aspirin 81 mg tablet,delayed 81 mg PO DAILY 01/24/24 Unknown Hi story release clopidogrel 75 mg tablet 75 mg PO DAILY 01/24/24 Unknown Hi story dorzolamide 2 % eye drops 1 drp ophthalmic (eye) TID 4 Unknown History rosuvastatin 20 mg tablet 20 mg PO QHS 01/24/24 Unknown Hist ory amlodipine 10 mg tablet 10 mg PO QDAY #30 tabs 02/20/24 Un known Rx gabapentin 300 mg capsule 600 mg PO TIDCM 02/20/24 Unknown H istory isosorbide mononitrate 30 mg 30 mg PO QDAY 02/20/24 Unknown His tory tablet,extended release 24 hr losartan 50 mg tablet 50 mg PO QDAY (more content not included)... Normal [facility]P Exam - Hospitalist [facility] Medical Records Department [address] [place] [address] H P Exam - Hospitalist 01/18/24 0016 MR#: [id number] Acct: [id number] Name: KALINA RUDD Rep #: [id number] : 1940 83 From: Vazquez Woodard DO PCP: Dr. Karen Resendiz MD Status:DIS IN Location: ICU [id number] HPI - General General Date of Admission: 01/17/24 Date of Service: 01/18/24 Chief Complaint: STEMI. HPI Narrative KALINA RUDD, is a 83 F with a past medical history of essential hypertension; on amlodipine and metoprolol, neuropathy; on gabapentin, GERD; on omeprazole, depression; on duloxetine, history of fibromyalgia, listed allergy to amitriptyline (?), listed allergy to codeine (chest tightness), listed allergy to trazodone (?), and osteoarthritis who presents to [facility] ER initially complaining of uncontrolled hypertension and shortness of breath. She informed the ER physician that she had had been having difficulty controlling her blood pressure for the past month in spite of taking her metoprolol 50 mg daily and amlodipine 2.5 mg daily with systolic blood pressure consistently greater than 150 mmHg. Then earlier in the day prior to admission she took an extra amlodipine dose without improvement so she called her PCP who advised her to come to the ER for further evaluation and treatment. She also admitted to a mild headache that improved with Tylenol and she initially denied fever, chills, nausea, vomiting, diaphoresis, chest pain or shortness of breath. In the ER she was noted to 2 negative troponins and initially nonacute EKG but then she was noted to have a blood pressure spike into the 190 mmHg range consistent with hypertensive emergency followed by EKG changes consistent with STEMI with ST depressions in the anterior leads and increased elevation in aVR with patient immediately started on IV heparin after she was treated with aspirin, Brilinta and statin with patient then taken to the cardiology lab and found to have severe triple- vessel disease with 99% occlusions of both OM1 and OM 2 with a notably small RCA and a diffuse 99% stenosis indicating need for CABG with patient developing ventricular fibrillation transiently when catheter was placed into the heart. This was quickly treated and arrangements were made for her to go to a tertiary care center at [facility] by business applications manager whose help is greatly appreciated. The patient was briefly moved to the ICU where she was started on IV nitroglycerin with an additional dose of IV morphine given to control her ongoing chest pain. This is a same-day admission and discharge. [facility] Home Medications ???Medication ???Instructions ???Recorded ???Last Taken ???Type Omeprazole [Prilosec] 40 mg PO DAILY 08/23/13 02/23/16 05:00 History duloxetine 60 mg capsule,delayed 60 mg PO DAILY 08/23/13 08/23/13 08:00 History release gabapentin 300 mg capsule 300 mg PO TIDCM 08/23/13 08/23/13 08:00 History estradiol 0.01% (0.1 mg/gram) 1 applic vaginal 05/30/20 Unknown History vaginal cream metoprolol succinate 50 mg 50 mg PO DAILY 05/30/20 Unknown History tablet,extended release 24 hr amlodipine 2.5 mg tablet 2.5 mg PO DAILY 01/17/24 Unknown History Allergy/AdvReac Type Severity Reaction Status Date / Time amitriptyline Allergy Unknown Verified 01/17/24 18:45 codeine Allergy Chest Verified 01/17/24 18:45 tightness trazodone Allergy Other Verified 01/17/24 18:45 Social History Smoking Status: Never smoker ROS ROS Narrative Review of Systems: Constitutional: Patient denies fever or chills. Eyes: Patient denies changes in vision or discharge from eyes. ENT: Patient denies runny nose, sore throat or ear pain. Resp: Patient denies shortness of breath or cough. CV: Patient admits to chest pain made worse with exertion but not relieved along with elevated blood pressure over the past month. GI: Patient denies abdominal pain, nausea, vomiting or diarrhea. : Patient denies dysuria or hematuria. MSK: Patient denies arthralgias or myalgias. Skin: Patient denies rash, abscess or jaundice. Psych: Patient denies symptoms of uncontrolled depression or anxiety. Neuro: Patient admits to intermittent headaches but she denies paresthesias or focal neurologic deficits. Allergy: Patient denies lip swelling, tongue swelling or urticaria. Hematology: Patient denies easy bleeding or easy bruisability. Endocrinology: Patient denies polyuria, polydipsia or polyphagia. 14 point review of systems otherwise negative except for positives noted above in HPI. Vital Signs Vital Signs Vital Signs: 01/17/24 18:46 01/17/24 19:48 01/17/24 19:59 Temperature 96.9 F L Temperature Source Temporal Pulse Rate 67 65 Respiratory Rate 18 (more content not included)... Normal [facility] HFPon 01-18-2024 Bili Indirect 0.8 mg/dL Normal 0.1-10.0 [facility] Comment on above: Performed By: #### A DIFF, CBC, GFR, ANEU, BMP, MG #### [place] [address] Albumin Level 3.7 G/dL Normal 3.2-4.8 [facility] Comment on above: Performed By: #### A DIFF, CBC, GFR, ANEU, BMP, MG #### [place] [address] Albumin/Globulin [Mass ratio] 1.0 {ratio} Normal 0.9-1.6 [facility] Comment on above: Performed By: #### A DIFF, CBC, GFR, ANEU, BMP, MG #### [place] [address] ALP [Catalytic activity/Vol] 121 U/L Normal 38-126 [facility] Comment on above: Performed By: #### A DIFF, CBC, GFR, ANEU, BMP, MG #### [place] [address] ALT [Catalytic activity/Vol] 37 U/L Normal 10-49 [facility] Comment on above: Performed By: #### A DIFF, CBC, GFR, ANEU, BMP, MG #### [place] [id number] AST [Catalytic activity/Vol] 67 U/L High 8-34 [facility] Comment on above: Performed By: #### A DIFF, CBC, GFR, ANEU, BMP, MG #### [place] [address] Bili Direct 0.2 mg/dL Normal 0.0-0.4 [facility] Comment on above: Result Comment: Use of this assay is not recommended for patients undergoing treatment with eltrombopag due to the potential for falsely elevated results. Performed By: #### A DIFF, CBC, GFR, ANEU, BMP, MG #### [place] [address] Bili Total 1.00 mg/dL Normal 0.20-1.20 [facility] Comment on above: Result Comment: Use of this assay is not recommended for patients undergoing treatment with eltrombopag due to the potential for falsely elevated results. Performed By: #### A DIFF, CBC, GFR, ANEU, BMP, MG #### [facility] [address] [place] [id number] Globulin 3.6 G/dL Normal 1.5-3.8 [facility] Comment on above: Performed By: #### A DIFF, CBC, GFR, ANEU, BMP, MG #### [facility] [address] [place] [id number] Total Protein 7.3 G/dL Normal 5.7-8.2 [facility] Comment on above: Performed By: #### A DIFF, CBC, GFR, ANEU, BMP, MG #### [facility] [address] [place] [address] LABORATORYOrdered By: SYSTEM SYSTEM on 01-18-2024 Troponin I.cardiac DL <= 0.01 ng/mL [Mass/Vol] 1456 ng/L High 0 - 34 ng/L ADM SS Comment on above: Interpretive Data: High Sensitive Troponin I Reference Ranges: Female: 0-34 ng/L Male: 0-54 ng/L Testing performed on [employer] analyzer using direct chemiluminescent technology. Albumin BCP dye [Mass/Vol] 3.7 G/dL Normal 3.2 - 4.8 G/dL ADM SS Albumin/Globulin [Mass ratio] 1.0 {ratio} Normal 0.9 - 1.6 ratio ADM SS ALP [Catalytic activity/Vol] 121 U/L Normal 38 - 126 U/L ADM SS ALT No additional P-5'-P [Catalytic activity/Vol] 37 U/L Normal 10 - 49 U/L ADM SS AST [Catalytic activity/Vol] 67 U/L High 8 - 34 U/L ADM SS Basophils (Bld) [#/Vol] 0.0 103/mcL Normal 0.0 - 0.3 10^3/mcL Workflow SS Basophils/100 WBC (Bld) 0.2 % Normal 0.0 - 2.5 % Workflow SS Bili Indirect 0.8 mg/dL Normal 0.1 - 10.0 mg/dL Chemistry S Bilirubin [Mass/Vol] 1.00 mg/dL Normal 0.20 - 1.20 mg/dL ADM SS Comment on above: Interpretive Data: U se of this assay is not recommended for patients undergoing treatment with eltrombopag due to the potential for falsely elevated results. Bilirubin.conjugated [Mass/Vol] 0.2 mg/dL Normal 0.0 - 0.4 mg/dL ADM SS Comment on above: Interpretive Data: U se of this assay is not recommended for patients undergoing treatment with eltrombopag due to the potential for falsely elevated results. Calcium [Mass/Vol] 9.9 mg/dL Normal 8.7 - 10. 4 mg/dL ADM SS Chloride [Moles/Vol] 106 mmol/L Normal 98 - 11 0 mEq/L ADM SS CO2 [Moles/Vol] 21 mmol/L Low 22 - 32 mEq/L ADM SS Creatinine [Mass/Vol] 0.78 mg/dL Normal 0.50 - 1.20 mg/dL ADM SS Comment on above: Interpretive Data: T esting performed on [employer] analyzer using enzymatic creatinine methodology. Electrolyte Balance 9.0 mEq/L Normal 4.0 - 15 .0 mEq/L ADM SS Eosinophils (Bld) [#/Vol] 0.0 103/mcL Normal 0.0 - 0.7 10^3/mcL Workflow SS Eosinophils/100 WBC (Bld) 0.0 % Normal 0.0 - 6.0 % Workflow SS Erythrocyte distribution width (RBC) [Ratio] 13.7 % Normal 11.5 - 15.5 % Workflow SS GFR/1.73 sq M.predicted among blacks MDRD (S/P/Bld) [Vol rate/Area] ml/min/1.73sqm Invalid Interpretation Code ADM SS Comment on above: Interpretive Data: GFR Population mean for , Non- Americans Ages 20-29 = 116 mL/min/1.73 sq.m. Ages 30-39 = 107 mL/min/1.73 sq.m. Ages 40-49 = 99 mL/min/1.73 sq.m. Ages 50-59 = 93 mL/min/1.73 sq.m. Ages 60-69 = 85 mL/min/1.73 sq.m. Ages 70+ = 75 mL/min/1.73 sq.m. Chronic Kidney Disease: Less than 60 mL/min/1.73 square meters End Stage Renal Disease: Less than 15 mL/min/1.73 square meters GFR/1.73 sq M.predicted among non-blacks MDRD (S/P/Bld) [Vol rate/Area] ml/min/1.73sqm Invalid Interpretation Code ADM SS Comment on above: Interpretive Data: GFR Population mean for , Non- Americans Ages 20-29 = 116 mL/min/1.73 sq.m. Ages 30-39 = 107 mL/min/1.73 sq.m. Ages 40-49 = 99 mL/min/1.73 sq.m. Ages 50-59 = 93 mL/min/1.73 sq.m. Ages 60-69 = 85 mL/min/1.73 sq.m. Ages 70+ = 75 mL/min/1.73 sq.m. Chronic Kidney Disease: Less than 60 mL/min/1.73 square meters End Stage Renal Disease: Less than 15 mL/min/1.73 square meters Globulin 3.6 G/dL Normal 1.5 - 3.8 G/dL ADM SS Glucose [Mass/Vol] 155 mg/dL High 82 - 115 mg/dL ADM SS Hematocrit (Bld) [Volume fraction] 42.2 % Normal 34.0 - 46.0 % Workflow SS Hemoglobin (Bld) [Mass/Vol] 14.5 G/dL Normal 12.0 - 16.0 G/dL Workflow SS Lymphocytes (Bld) [#/Vol] 0.6 103/mcL Low 0.9 - 4.3 10^3/mcL Workflow SS Lymphocytes/100 WBC (Bld) 5.8 % Low 20.0 - 40.0 % Workflow SS Magnesium [Mass/Vol] 1.9 mg/dL Normal 1.6 - 2 .4 mg/dL ADM SS MCH (RBC) [Entitic mass] 31.0 pg Normal 27.0 - 33.0 pg Workflow SS MCHC 34.4 G/dL Normal 32.0 - 36.0 G/dL Workflow SS MCV (RBC) [Entitic vol] 90.3 fL Normal 80.0 - 99.0 fL Workflow SS Monocytes (Bld) [#/Vol] 0.4 103/mcL Normal 0.1 - 1.4 10^3/mcL Workflow SS Monocytes/100 WBC (Bld) 3.7 % Normal 2.0 - 13.0 % Workflow SS Natriuretic peptide.B prohormone N-Terminal IA [Mass/Vol] 1067 pg/mL Normal 0 - 1800 pg/mL ADM SS Neutrophils (Bld) [#/Vol] 9.8 103/mcL High 2.3 - 8.1 10^3/mcL Workflow SS Neutrophils/100 WBC (Bld) 90.3 % High 50.0 - 75.0 % Workflow SS Phosphate [Mass/Vol] 2.5 mg/dL Normal 2.4 - 5 .1 mg/dL ADM Comment on above: Interpretive Data: * *Note - New Reference Range in effect 19 Platelet mean volume (Bld) [Entitic vol] 8.5 fL Normal 6.6 - 10.5 fL Workflow SS Platelets (Bld) [#/Vol] 233 103/mcL Normal 150 - 450 10^3/mcL Workflow SS Potassium [Moles/Vol] 4.1 mmol/L Normal 3.5 - 5.0 mEq/L ADM Comment on above: Result Comment: Spec imen slightly hemolyzed. Protein [Mass/Vol] 7.3 G/dL Normal 5.7 - 8.2 G/dL ADM SS PT Coag (PPP) [Time] 11.8 s Normal 9.0 - 1 4.4 seconds [facility] SS Comment on above: Interpretive Data: E ffective 08/25/07, Protime results may be affected by some antibiotics (i.e. Ciprofloxacin, Azithromycin, Bactrim) which may potentiate the action of oral anticoagulants, with further increases in Protime/INR. PT Coag (PPP) [Time] 11.9 s Normal 9.0 - 1 4.4 seconds [facility] SS Comment on above: Interpretive Data: E ffective 08/25/07, Protime results may be affected by some antibiotics (i.e. Ciprofloxacin, Azithromycin, Bactrim) which may potentiate the action of oral anticoagulants, with further increases in Protime/INR. RBC (Bld) [#/Vol] 4.68 106/mcL Normal 4.10 - 5.3 0 10^6/mcL Workflow SS Sodium [Moles/Vol] 136 mmol/L Normal 136 - 145 mEq/L ADM Troponin I.cardiac DL <= 0.01 ng/mL [Mass/Vol] 673 ng/L High 0 - 34 ng/L AH ADM SS Comment on above: Interpretive Data: High Sensitive Troponin I Reference Ranges: Female: 0-34 ng/L Male: 0-54 ng/L Testing performed on [employer] analyzer using direct chemiluminescent technology. TSH Qn 2.587 mIU/mL Normal 0.550 - 4.780 mIU/mL AH ADM SS Urea nitrogen [Mass/Vol] 20.0 mg/dL Normal 8.0 - 22.0 mg/dL AH ADM SS Urea nitrogen/Creatinine [Mass ratio] 25.6 ratio High 10.0 - 22.0 ratio AH ADM SS WBC (Bld) [#/Vol] 10.9 103/mcL High 4.5 - 10.8 10^3/mcL AH Workflow SS LABORATORYOrdered By: Raul Basurto on 01-18-2024 Appearance (U) Clear (01/18/24 5:36 AM) Normal Clear AH Auto Urine SS Bilirubin Ql (U) Negative (01/18/24 5:36 AM) Normal Neg-Trace AH Auto Urine SS Color (U) Yellow (01/18/24 5:36 AM) Normal AH Auto Urine SS Glucose Test strip (U) [Mass/Vol] 100 mg/dL Invalid Interpretation Code Negative AH Auto Urine SS Hemoglobin Auto test strip (U) [Mass/Vol] Negative (01/18/24 5:36 AM) Normal Neg-Trace AH Auto Urine SS Ketones Ql (U) 40 mg/dL Invalid Interpretation Code Neg-Trace AH Auto Urine SS UA Leuk Est Negative (01/18/24 5:36 AM) Normal Negative AH Auto Urine SS UA Nitrite Negative (01/18/24 5:36 AM) Normal Negative AH Auto Urine SS UA pH 8.0 (01/18/24 5:36 AM) Normal 5.0 - 8.0 AH Auto Urine SS UA Protein Trace mg/dL Normal Negative AH Auto Urine SS UA Spec Grav >=1.030 *ABN* (01/18/24 5:36 AM) Invalid Interpretation Code 1.006-1.029 AH Auto Urine SS UA Specimen Type Clean Catch (01/18/24 5:36 AM) Normal AH Auto Urine SS UA Urobilinogen 1.0 E.U./dL Normal 0.2-1.0 AH Auto Urine SS LABORATORYOrdered By: Maria C Lee on 01-18-2024 Cholesterol [Mass/Vol] 222 mg/dL High 50 - 199 mg/dL ADM SS Comment on above: Interpretive Data: C holesterol Reference Interval: Less than 200 Desirable 200-239 Borderline high risk 240 and above High risk Cholesterol in HDL [Mass/Vol] 55 mg/dL Normal 40 - 59 mg/dL ADM SS Cholesterol in LDL [Mass/Vol] 148 mg/dL High 0 - 129 mg/dL ADM SS Triglyceride [Mass/Vol] 97 mg/dL Normal 3 - 149 mg/dL [facility] SS LIPIDon 01-18-2024 Cholesterol [Mass/Vol] 222 mg/dL High 50-199 [facility] Comment on above: Result Comment: Chol esterol Reference Interval: Less than 200 Desirable 200-239 Borderline high risk 240 and above High risk Performed By: #### A DIFF, CBC, GFR, ANEU, BMP, MG #### [address] [address] Cholesterol in HDL [Mass/Vol] 55 mg/dL Normal 40-59 [facility] Comment on above: Performed By: #### A DIFF, CBC, GFR, ANEU, BMP, MG #### [address] [address] Cholesterol in LDL [Mass/Vol] 148 mg/dL High 0-129 [facility] Comment on above: Performed By: #### A DIFF, CBC, GFR, ANEU, BMP, MG #### [address] [address] Triglyceride [Mass/Vol] 97 mg/dL Normal 3-149 [facility] Comment on above: Performed By: #### A DIFF, CBC, GFR, ANEU, BMP, MG #### [address] [address] MGon 01-18-2024 Magnesium [Mass/Vol] 1.9 mg/dL Normal 1.6-2.4 [facility] Comment on above: Performed By: #### A DIFF, CBC, GFR, ANEU, BMP, MG #### [address] [address] No Panel InformationOrdered By: SYSTEM SYSTEM on 01-18-2024 PT International Ratio 1.0 ratio Invalid Interpretation Code AH [facility] SS Comment on above: Interpretive Data: Carlee leroy [employer] (CHEST, 1991, 102:312S-25S) recommended therapeutic range for oral anticoagulant therapy is: LOW RISK: Prophylaxis of venous thrombosis INR: 2.0-3.0 Treatment of pulmonary embolism 2.0-3.0 Prevention of systemic embolism 2.0-3.0 HIGH RISK: Mechanical prosthetic valves 2.5-3.5 PBNPon 01-18-2024 Natriuretic peptide B (Bld) [Mass/Vol] 1067 pg/mL Normal 0-1800 [facility] Comment on above: Performed By: #### A DIFF, CBC, GFR, ANEU, BMP, MG #### [place] [address] PHOSon 01-18-2024 Phosphate [Mass/Vol] 2.5 mg/dL Normal 2.4-5.1 [facility] Comment on above: Result Comment: No te - New Reference Range in effect 19 Performed By: #### A DIFF, CBC, GFR, ANEU, BMP, MG #### [place] [address] PROon 01-18-2024 INR Coag (PPP) [Relative time] 1.0 {INR} Normal [facility] Comment on above: Result Comment: [employer] (CHEST, 1991, 102:312S-25S) recommended therapeutic range for oral anticoagulant therapy is: LOW RISK: Prophylaxis of venous thrombosis INR: 2.0-3.0 Treatment of pulmonary embolism 2.0-3.0 Prevention of systemic embolism 2.0-3.0 HIGH RISK: Mechanical prosthetic valves 2.5-3.5 Performed By: #### A DIFF, CBC, GFR, ANEU, BMP, MG #### [address] [address] PT Coag (PPP) [Time] 11.8 s Normal 9.0-14.4 [facility] Comment on above: Result Comment: Effe ctive 08/25/07, Protime results may be affected by some antibiotics (i.e. Ciprofloxacin, Azithromycin, Bactrim) which may potentiate the action of oral anticoagulants, with further increases in Protime/INR. Performed By: #### A DIFF, CBC, GFR, ANEU, BMP, MG #### [place] [address] INR Coag (PPP) [Relative time] 1.0 {INR} Normal [facility] Comment on above: Result Comment: [employer] (CHEST, 1991, 102:312S-25S) recommended therapeutic range for oral anticoagulant therapy is: LOW RISK: Prophylaxis of venous thrombosis INR: 2.0-3.0 Treatment of pulmonary embolism 2.0-3.0 Prevention of systemic embolism 2.0-3.0 HIGH RISK: Mechanical prosthetic valves 2.5-3.5 Performed By: #### A DIFF, CBC, GFR, ANEU, BMP, MG #### [place] [id number] PT Coag (PPP) [Time] 11.9 s Normal 9.0-14.4 [facility] MA[facility] Comment on above: Result Comment: Effe ctive 08/25/07, Protime results may be affected by some antibiotics (i.e. Ciprofloxacin, Azithromycin, Bactrim) which may potentiate the action of oral anticoagulants, with further increases in Protime/INR. Performed By: #### A DIFF, CBC, GFR, ANEU, BMP, MG #### [address] 01-18-2024 High Sensitivity Troponin I 1456 ng/L High [address] [place] [address] MAIN Comment on above: Result Comment: High Sensitive Troponin I Reference Ranges: Female: 0-34 ng/L Male: 0-54 ng/L Testing performed on [employer] IM analyzer using direct chemiluminescent technology. Performed By: #### T ROP #### [place] [address] High Sensitivity Troponin I 673 ng/L High [address] [place] [address] MAIN Comment on above: Result Comment: High Sensitive Troponin I Reference Ranges: Female: 0-34 ng/L Male: 0-54 ng/L Testing performed on [employer] IM analyzer using direct chemiluminescent technology. Performed By: #### A DIFF, CBC, GFR, ANEU, BMP, MG #### [place] [id number] TSHon 01-18-2024 TSH 2.587 mIU/mL Normal 0.550-4.780 [facility] Comment on above: Performed By: #### A DIFF, CBC, GFR, ANEU, BMP, MG #### [place] [id number] UAon 01-18-2024 Color (U) Yellow Normal [facility] Comment on above: Performed By: #### U A #### [place] [address] Glucose (U) [Mass/Vol] 100 mg/dL Abnormal Negative [facility] Comment on above: Performed By: #### U A #### [place] [address] Ketones Ql (U) 40 mg/dL Abnormal Neg-Trace [facility] MA[facility] Comment on above: Performed By: #### U A #### [place] [address] UA Appear Clear Normal Clear [facility] Comment on above: Performed By: #### U A #### [place] [address] UA Blood Negative Normal Neg-Trace [facility] Comment on above: Performed By: #### U A #### [place] [address] UA Leuk Est Negative Normal Negative [facility] Comment on above: Performed By: #### U A #### [place] [address] UA Nitrite Negative Normal Negative [facility] Comment on above: Performed By: #### U A #### [place] [address] UA pH 8.0 Normal 5.0 - 8.0 [facility] Comment on above: Performed By: #### U A #### [place] [address] UA Protein Trace Normal Negative [facility] Comment on above: Performed By: #### U A #### [place] [address] UA Spec Grav >=1.030 Abnormal 1.006-1.029 [facility] Comment on above: Performed By: #### U A #### [facility] [address] [place] [address] UA Specimen Type Clean Catch [facility] MAIN Comment on above: Performed By: #### U A #### [facility] [address] [place] [address] UA Urobilinogen 1.0 E.U./dL Normal 0.2-1.0 [facility] MAIN Comment on above: Performed By: #### U A #### [facility] [address] [place] [address] Urobilinogen (U) [Mass/Vol] Negative Normal Neg-Trace [facility] MAIN Comment on above: Performed By: #### U A #### [facility] [address] [place] [address] XR CHEST 1 VIEWon 01-18-2024 XR CHEST 1 VIEW ORIGINAL EXAMINATION: ONE XRAY VIEW OF THE CHEST01/18/2024 5:27 am CHEST ONE VIEW AP/PA COMPARISON: None HISTORY: ORDERING SYSTEM PROVIDED HISTORY: Reason for Exam: Chest Pain FINDINGS: The cardiomediastinal silhouette is normal in appearance. Atherosclerotic calcification of the aorta is noted. No consolidation, pleural effusion, or vascular congestion is seen. The osseous structures are intact. IMPRESSION: No acute findings. Interpreted by: Herson Goldstein MD Preliminary Report By: Herson Goldstein MD Electronically signed By Herson Goldstein MD Dictated Date: 01/18/2024 5:33:13 AM Prelim Date: 01/18/2024 5:35:45 AM Sign Date: 01/18/2024 5:35:45 AM Ordering Provider: KENNY KWAN [facility] MAIN 12 Lead EKGon 01-17-2024 12 Lead EKG [facility] Cardiovascular Services [address] [place] [address] 12 Lead EKG 01/17/244 MR#: [id number] Acct: [id number] Name: KALINA RUDD Rep #: [id number] : 1940 83 From: Kenny Good MD Attending Dr: Dr. Billy Wise MD Status: DEP CLI Ordering Dr: Elmer Lujan DO Date: 4 Location: ICUOUT Sex: F C Admitted: Test Reason : REPEAT Blood Pressure : */* mmHG Vent. Rate : 99 BPM Atrial Rate : 99 BPM P-R Int : 168 ms QRS Dur : 94 ms QT Int : 366 ms P-R-T Axes : 46 -28 144 degrees QTcB Int : 469 ms Critical Test Result: STEMI Normal sinus rhythm ST/T changes consistent with anterior lateral ischemia Abnormal ECG Confirmed by Kenny Good ([id number]), supervising editor news reel EMILY MANTILLA ([id number]) on 01/19/2024 9:06:56 AM Referred By: Confirmed By: Kenny Good 01/19/24 09 Date Kenny Good MD CC: Dr. Elmer Lujan DO; Dr. Billy Wise MD; Dr. Karen Resendiz MD Signed Normal [facility] 12 Lead EKG [facility] Cardiovascular Services [address] [place] [address] 12 Lead EKG 01/17/24 2115 MR#: [id number] Acct: [id number] Name: KALINA RUDD Rep #: [id number] : 1940 83 From: Kenny Good MD Attending Dr: Dr. Billy Wise MD Status: DIS IN Ordering Dr: Elmer Lujan DO Date: 4 Location: ICU Sex: F C Admitted: 01/17/24 Test Reason : REPEAT Blood Pressure : */* mmHG Vent. Rate : 101 BPM Atrial Rate : 101 BPM P-R Int : 150 ms QRS Dur : 92 ms QT Int : 362 ms P-R-T Axes : 50 -26 136 degrees QTcB Int : 469 ms Sinus tachycardia Marked ST abnormality, possible lateral subendocardial injury Abnormal ECG Confirmed by Kenny Good ([id number]), supervising editor news reel YASMIN VO ([id number]) on 01/19/2024 7:02:30 AM Referred By: Confirmed By: Kenny Good 01/19/24701 Date Kenny Good MD CC: Dr. Elmer Lujan DO; Dr. Billy Wise MD; Dr. Karen Resendiz MD Signed [facility] 12 Lead EKG [facility] Cardiovascular Services [address] [place] [address] 12 Lead EKG 01/17/24 2045 MR#: [id number] Acct: [id number] Name: KALINA RUDD Rep #: [id number] : 1940 83 From: Kenny Good MD Attending Dr: Dr. Billy Wise MD Status: DIS IN Ordering Dr: Elmer Lujan DO Date: 4 Location: ICU Sex: F C Admitted: 01/17/24 Test Reason : Blood Pressure : */* mmHG Vent. Rate : 89 BPM Atrial Rate : 89 BPM P-R Int : 154 ms QRS Dur : 88 ms QT Int : 366 ms P-R-T Axes : 33 -23 74 degrees QTcB Int : 445 ms Normal sinus rhythm Nonspecific ST and T wave abnormality Abnormal ECG Confirmed by Kenny Good ([id number]), supervising editor news reel YASMIN VO ([id number]) on 01/19/2024 7:02:16 AM Referred By: Confirmed By: Kenny Good 01/19/24701 Date Kenny Good MD CC: Dr. Elmer Lujan DO; Dr. Billy Wise MD; Dr. Karen Resendiz MD Signed [facility] BNP,B-Type NATRIURETIC PEPTI David 01-17-2024 Natriuretic peptide B (Bld) [Mass/Vol] 87.2 pg/mL Normal 0-100 [facility] Comment on above: Performed By: #### L 500.2500, L501.4020, L100.0100, L503.6620 ####[facility] [address] [place], [address] Basic Metabolic Profile (BMP )on 01-17-2024 BUN/CRE 17.6 RATIO Normal 10-20 [facility] Comment on above: Order Comment: 'TROP ' Serial specimen #1, #2 or #3: 1 Performed By: #### L 500.2500, L501.4020, L100.0100, L503.6620 ####[facility] [address] [place], [address] CA,Total 9.6 mg/dL Normal 8.5-10.1 [facility] Comment on above: Order Comment: 'TROP ' Serial specimen #1, #2 or #3: 1 Performed By: #### L 500.2500, L501.4020, L100.0100, L503.6620 ####[facility] [address] [place], [address] Chloride [Moles/Vol] 106 mmol/L Normal 98-107 [facility] Comment on above: Order Comment: 'TROP ' Serial specimen #1, #2 or #3: 1 Performed By: #### L 500.2500, L501.4020, L100.0100, L503.6620 ####[facility] [address] [place], [address] CO2 [Moles/Vol] 24.0 mmol/L Normal 21.0-32.0 [facility] Comment on above: Order Comment: 'TROP ' Serial specimen #1, #2 or #3: 1 Performed By: #### L 500.2500, L501.4020, L100.0100, L503.6620 ####[facility] [address] [place], [address] Creatinine [Mass/Vol] 1.31 mg/dL High 0.55-1.02 [facility] Comment on above: Order Comment: 'TROP ' Serial specimen #1, #2 or #3: 1 Result Comment: The validity of the calculated GFR GFRAA in patients over 70 years has not been determined. Clinical correlation is essential. Performed By: #### L 500.2500, L501.4020, L100.0100, L503.6620 ####[facility] [address] [place], [address] ECRCL 28.45 ml/min Normal [facility] Comment on above: Order Comment: 'TROP ' Serial specimen #1, #2 or #3: 1 Performed By: #### L 500.2500, L501.4020, L100.0100, L503.6620 ####[facility] [address] [place], [address] EST GFR - AA 50 mL/min Low >60 [facility] Comment on above: Order Comment: 'TROP ' Serial specimen #1, #2 or #3: 1 Result Comment: Afri can Faroese GFR Calc Performed By: #### L 500.2500, L501.4020, L100.0100, L503.6620 ####[facility] [address] [place], [address] GAP 5 Normal 5-15 [facility] Comment on above: Order Comment: 'TROP ' Serial specimen #1, #2 or #3: 1 Performed By: #### L 500.2500, L501.4020, L100.0100, L503.6620 ####[facility] [address] [place], [address] GFR/1.73 sq M.predicted among non-blacks MDRD (S/P/Bld) [Vol rate/Area] 41 mL/min/{1.73_m2} Low >60 [facility] Comment on above: Order Comment: 'TROP ' Serial specimen #1, #2 or #3: 1 Result Comment: Non- GFR Calc Performed By: #### L 500.2500, L501.4020, L100.0100, L503.6620 ####[facility] [address] [place], [address] Glucose [Mass/Vol] 92 mg/dL Normal 74-106 [facility] Comment on above: Order Comment: 'TROP ' Serial specimen #1, #2 or #3: 1 Performed By: #### L 500.2500, L501.4020, L100.0100, L503.6620 ####[facility] [address] [place], [address] Potassium [Moles/Vol] 4.5 mmol/L Normal 3.5-5.1 [facility] Comment on above: Order Comment: 'TROP ' Serial specimen #1, #2 or #3: 1 Result Comment: Mode rate Hemolysis, Result may be falsely increased. Performed By: #### L 500.2500, L501.4020, L100.0100, L503.6620 ####[facility] [address] [place], [address] Sodium [Moles/Vol] 136 mmol/L Normal 136-145 [facility] Comment on above: Order Comment: 'TROP ' Serial specimen #1, #2 or #3: 1 Performed By: #### L 500.2500, L501.4020, L100.0100, L503.6620 ####[facility] [address] [place], [address] Urea nitrogen [Mass/Vol] 23 mg/dL High 7-18 [facility] Comment on above: Order Comment: 'TROP ' Serial specimen #1, #2 or #3: 1 Performed By: #### L 500.2500, L501.4020, L100.0100, L503.6620 ####[facility] [address] [place], [address] Brain/Head without Contrasto n 01-17-2024 Brain/Head without Contrast [facility] Imaging Services [address] [place] [address] Brain/Head without Contrast MR#: [id number] Acct: [id number] Name: KALINA RUDD Rep #: [id number] : 1940 F 83 From: Tien Burger DO PCP: Dr. Karen Resendiz MD Status: REG ER Study: Brain/Head without Contrast Date of Exam: 09/02 Exam# [id number] Ordering Dr: Elmer Lujan DO [id number] STUDY: CT BRAIN WITHOUT CONTRAST REASON FOR EXAM: Female, 83 years old. Headache, severe hypertension RADIATION DOSAGE (If Supplied By Facility): CTDIvol = ( 44.99 ) mGy, DLP = ( 812.98 ) mGycm TECHNIQUE: Transaxial CT imaging of the brain was performed without administration of intravenous contrast material. Individualized dose optimization techniques were used for this CT. COMPARISON: No relevant priors. FINDINGS: Normal soft tissue structures. Normal calvarium. Prominent ventricles and extra-axial spaces with mild atrophy. Bilateral white matter microangiopathic ischemic changes of the cerebral hemispheres. Normal basal ganglia and thalami. Normal brainstem. Normal cerebellum. There is no intracranial hemorrhage. There are no findings of an acute ischemic infarction. Normal visualized paranasal sinuses. CT/Brain/Head without Contrast IMPRESSION: Age-related changes of the brain. Electronically Signed: Tien Burger DO at 22:00 EST Reading Location ID and State: [facility] / [place] Tel [phone], Service support , CC: Dr. Elmer Lujan DO; Dr. Karen Resendiz MD Poster: Signed Normal [facility] CBC W/Diff, Automatedon 12 Absolute Lymph 1.69 X10 3/uL Normal 0.83-4.51 [facility] Comment on above: Performed By: #### L 500.2500, L501.4020, L100.0100, L503.6620 ####[facility] [address] [place], [address] Absolute Neut 5.9 X10 3/uL Normal 2.0-7.7 [facility] Comment on above: Performed By: #### L 500.2500, L501.4020, L100.0100, L503.6620 ####[facility] [address] [place], [address] Basophils/100 WBC (Bld) 0.6 % Normal 0-1 [facility] Comment on above: Performed By: #### L 500.2500, L501.4020, L100.0100, L503.6620 ####[facility] [address] [place], [address] Eosinophils/100 WBC (Bld) 1.1 % Normal 0-5 [facility] Comment on above: Performed By: #### L 500.2500, L501.4020, L100.0100, L503.6620 ####[facility] [address] [place], [address] Erythrocyte distribution width (RBC) [Ratio] 12.8 % Normal 11.6-14.6 [facility] Comment on above: Performed By: #### L 500.2500, L501.4020, L100.0100, L503.6620 ####[facility] [address] [place], [address] Hematocrit (Bld) [Volume fraction] 43.3 % Normal 37-47 [facility] Comment on above: Performed By: #### L 500.2500, L501.4020, L100.0100, L503.6620 ####[facility] [address] [place], [address] Hemoglobin (Bld) [Mass/Vol] 14.3 g/dL Normal 12.0-15.0 [facility] Comment on above: Performed By: #### L 500.2500, L501.4020, L100.0100, L503.6620 ####[facility] [address] [place], [address] IG% 0.400 Normal 0.0-0.9 [facility] Comment on above: Result Comment: IG% - Immature Granulocytes (promyelocytes, myelocytes and metamyelocytes) > 1% indicates that a LEFT SHIFT is Present. Performed By: #### L 500.2500, L501.4020, L100.0100, L503.6620 ####[facility] [address] [place], [address] Lymphocytes/100 WBC (Bld) 20.2 % Normal 19-41 [facility] Comment on above: Performed By: #### L 500.2500, L501.4020, L100.0100, L503.6620 ####[facility] [address] [place], [address] MCH (RBC) [Entitic mass] 30.6 pg Normal 27.0-32.0 [facility] Comment on above: Performed By: #### L 500.2500, L501.4020, L100.0100, L503.6620 ####[facility] [address] [place], [address] MCHC (RBC) [Mass/Vol] 33.0 g/dL Normal 32-36 [facility] Comment on above: Performed By: #### L 500.2500, L501.4020, L100.0100, L503.6620 ####[facility] [address] [place], [address] MCV (RBC) [Entitic vol] 92.7 fL Normal 81-99 [facility] Comment on above: Performed By: #### L 500.2500, L501.4020, L100.0100, L503.6620 ####[facility] [address] [place], [address] Monocytes/100 WBC (Bld) 6.9 % Normal 0-10 [facility] Comment on above: Performed By: #### L 500.2500, L501.4020, L100.0100, L503.6620 ####[facility] [address] [place], [address] Neutrophils/100 WBC (Bld) 70.8 % High 47-70 [facility] Comment on above: Performed By: #### L 500.2500, L501.4020, L100.0100, L503.6620 ####[facility] [address] [place], [address] Nucleated RBC (Bld) [#/Vol] 0 10*3/uL Normal 0-5 [facility] Comment on above: Performed By: #### L 500.2500, L501.4020, L100.0100, L503.6620 ####[facility] [address] [place], [address] Platelet mean volume (Bld) [Entitic vol] 12.1 fL High 6.2-12.0 [facility] Comment on above: Performed By: #### L 500.2500, L501.4020, L100.0100, L503.6620 ####[facility] [address] [place], [address] Platelets (Bld) [#/Vol] 165 10*3/uL Normal 150-450 [facility] Comment on above: Performed By: #### L 500.2500, L501.4020, L100.0100, L503.6620 ####[facility] [address] [place], [address] RBC (Bld) [#/Vol] 4.67 10*6/uL Normal 4.2-5.4 [facility] Comment on above: Performed By: #### L 500.2500, L501.4020, L100.0100, L503.6620 ####[facility] [address] [place], [address] RDW SD 43.8 fl Normal 35.1-43.9 [facility] Comment on above: Performed By: #### L 500.2500, L501.4020, L100.0100, L503.6620 ####[facility] [address] [place], [address] WBC (Bld) [#/Vol] 8.4 10*3/uL Normal 4.4-11.0 [facility] Comment on above: Performed By: #### L 500.2500, L501.4020, L100.0100, L503.6620 ####[facility] [address] [place], [address] Chest 1 View (Portable)on Chest 1 View (Portable) [facility] Imaging Services [address] [place] [address] Chest 1 View (Portable) MR#: [id number] Acct: [id number] Name: KALINA RUDD Rep #: [id number] : 1940 F 83 From: Tien Burger DO PCP: Dr. Karen Resendiz MD Status: REG ER Study: Chest 1 View (Portable) Date of Exam: 01/17/24 Exam# [id number] Ordering Dr: Elmer Lujan DO [id number] INDICATION: Hypertension EXAMINATION/TECHNIQUE: X-RAY - XR Chest 1 View COMPARISON: August 23, 2013 FINDINGS: LINES/DEVICES: None. LUNGS: No consolidation, edema or effusion. No pneumothorax. MEDIASTINUM AND CARDIOVASCULAR STRUCTURES: Cardiac silhouette not enlarged. Central airways and mediastinal contour are unremarkable. BONES AND SOFT TISSUES: Degenerative vertebral changes. RAD/Chest 1 View (Portable) IMPRESSION: No radiographic evidence of acute cardiopulmonary disease. Electronically Signed: Tien Burger DO at 22:34 EST , CC: Dr. Elmer Lujan DO; Dr. Karen Resendiz MD Poster: Signed Normal [facility] Emergency Department Summary on 01-17-2024 Emergency Department Summary [facility] Medical Records Department [address] [place] [address] Emergency Department Summary 01/17/24 MR#: [id number] Acct: [id number] Name: KALINA RUDD Rep #: [id number] : 1940 83 From: Elmer Lujan DO PCP: Dr. Karen Resendiz MD Status:ADM IN Location: ICU [id number] HPI History of Present Illness Chief Complaint: Hypertension Narrative Narrative: Chief complaint and HPI: 83-year-old female with history of hypertension presents for evaluation of hypertension. Patient states for the past month she has been having issues controlling her hypertension. She states that her current regiment is metoprolol 50 mg daily and then 2.5 mg amlodipine as needed if SBP greater than 150. Patient states for the past 2 days she has been having intermittent headaches. She states that her headache reoccurred today so she checked her blood pressure. She states it was high. She states that she took 2.5 mg amlodipine. She states that it remained high so she took another dose without improvement. She states she called her PCP call line and they told her to present to the emergency department. Patient currently states that her headache is minimal. She states that it is improved with Tylenol. She denies any fever, chills, vision changes, numbness/tingling, weakness, neurological deficit, chest pain, shortness of breath, abdominal pain, nausea, vomiting. Review of systems: See HPI Medications: As listed on the chart Allergies: As listed on the chart PFSH: Per chart Vital signs: As listed on the chart. Reviewed. Physical exam: Gen: A O x3, NAD Head: Normocephalic, atraumatic Eyes: No sclera icterus, conjunctiva clear, PERRL, EOMI ENT: Moist mucous membranes Neck: Trachea midline, No JVD CV: RRR, no murmurs, no peripheral edema Resp: Lungs CTA BL, no w/r/c GI: Abd soft, non-distended, non-tender, no r/r/g Musc: Full ROM, no deformity Skin: Warm, dry Neuro: Alert, oriented, grossly intact, sensation intact Psych: Cooperative, appropriate mood and affect [facility] Home Medications ???Medication ???Instructions ???Recorded ???Last Taken ???Type Omeprazole [Prilosec] 40 mg PO DAILY 08/23/13 02/23/16 05:00 History duloxetine 60 mg capsule,delayed 60 mg PO DAILY 08/23/13 08/23/13 08:00 History release gabapentin 300 mg capsule 300 mg PO TIDCM 08/23/13 08/23/13 08:00 History estradiol 0.01% (0.1 mg/gram) 1 applic vaginal 05/30/20 Unknown History vaginal cream metoprolol succinate 50 mg 50 mg PO DAILY 05/30/20 Unknown History tablet,extended release 24 hr amlodipine 2.5 mg tablet 2.5 mg PO DAILY 01/17/24 Unknown History Allergy/AdvReac Type Severity Reaction Status Date / Time amitriptyline Allergy Unknown Verified 01/17/24 18:45 codeine Allergy Chest Verified 01/17/24 18:45 tightness trazodone Allergy Other Verified 01/17/24 18:45 Social History Smoking Status: Never smoker EXAM Physical Exam Const Vital Signs: 01/17/24 18:46 01/17/24 19:48 01/17/24 19:59 Temperature 96.9 F L Temperature Source Temporal Pulse Rate 67 65 Respiratory Rate 18 18 Respiratory Effort Normal Non-Labored Respiratory Pattern Normal Blood Pressure 178/63 H 194/90 H Blood Pressure Mean 101 124 Blood Pressure Source Blood Pressure Position Blood Pressure Location Pulse Ox 100 Oxygen Delivery Method Room Air Room Air 01/17/24 20:42 01/17/24 22:00 01/17/24 22:31 Temperature Temperature Source Pulse Rate 75 97 64 Respiratory Rate 18 18 18 Respiratory Effort Respiratory Pattern Blood Pressure 191/58 H 153/64 H 155/70 H Blood Pressure Mean 102 93 98 Blood Pressure Source Blood Pressure Position Blood Pressure Location Pulse Ox 97 97 98 Oxygen Delivery Method Room Air Room Air Room Air 01/17/24 22:53 01/17/24 22:54 Temperature 98.1 F Temperature Source Pulse Rate 114 H Respiratory Rate 21 H Respiratory Effort Respiratory Pattern Blood Pressure 173/80 H 173/80 H Blood Pressure Mean 111 111 Blood Pressure Source Monitor Blood Pressure Position Semi-Fowlers Blood Pressure Location Right Arm Pulse Ox 100 Oxygen Delivery Method MDM MDM MDM Narrative Medical decision making narrative: 83-year-old female with history of hypertension presents for evaluation of hypertension. Associated symptom is intermittent headaches. Patient is currently hypertensive on my evaluation with SBP in the 190s. Differential diagnosis includes but is not limited to hypertensive emergency, hypertension urgency, intracranial bleed, ACS. IV hydralazine ordered for blood pressure. Laboratory workup ordered including CT head. EKG was interpreted by me/EM physician. EKG shows normal sinus rhythm with nons (more content not included)... Normal [facility] L501.4020on 01-17-2024 TROPONIN-I HS 8 pg/mL Normal 3.0-54.0 [facility] Comment on above: Order Comment: 'TROP ' Serial specimen #1, #2 or #3: 1 Result Comment: Plea se Note: New Test Units and Gender Specific Reference Ranges. For more information see Policy Stat Procedure [place] High Sensitivity Troponin (TNIH) and attachments. Performed By: #### L 501.4020 ####[facility] [address] [place], [place], [id number] TROPONIN-I HS 6 pg/mL Normal 3.0-54.0 [facility] Comment on above: Order Comment: 'TROP ' Serial specimen #1, #2 or #3: 1 Result Comment: Plea se Note: New Test Units and Gender Specific Reference Ranges. For more information see Policy Stat Procedure [place] High Sensitivity Troponin (TNIH) and attachments. Performed By: #### L 500.2500, L501.4020, L100.0100, L503.6620 ####[facility] [address] [place], [address] [place] 01-02-2024 [facility] Telephone (INTMWS) -- KALINA RUDD ([id number]) 1940 F T Date Time Provider Department 01/02/24 KAREN RESENDIZ INTMWS During your visit today, we recorded the following information about you: Jimena Pennington LPN 01/02/2024 8:17 AM Signed Electronic PA completed ands response. Prior authorization approved Payer: [facility] [phone] Note from payer: PA Case: [id number], Status: Approved, Coverage Starts on: 01/01/2024 8:02:06 PM, Coverage Ends on: 01/01/2024 8:02:06 PM. Questions? Contact . Approval Details Authorized from January 01, 2024 to January 01, 2024 Electronic appeal: Not supported View History Notes Time User Attachment Attachment received from payer. 01/01/2024 8:08 PM [facility], Rx Priorauth In Document Medication Being Authorized gabapentin (NEURONTIN) 300 mg capsule TAKE 2 CAPSULES THREE TIMES DAILY DIRECTED Dispense: 540 capsule Refills: 3 Start: 01/01/2024 End: 08/01/2024 Class: Normal Diagnoses: Fibromyalgia This order has been released to its destination. To be filled at: [facility] [place] [address] [address] - [phone] Jimena Pennington LPN 01/02/2024 11:42 AM Signed Per PA results not PA needed this is available to pt. Allergies As of Date: 01/02/2024 Noted Allergy Reaction AMITRIPTYLINE 10/01/2012 14 - Other: See Comments Comments: Could not urinate CODEINE 10/16/2004 Comments: chest pain SULFA (SULFONAMIDE ANTIBIOTICS) 03/31/2015 4 - Hives 7 - Swelling 9 - Itching TRAZODONE 10/16/2004 Comments: vivid dreams Date Reviewed: 01/01/2024 Reviewed by: Jenna Sanz LPN - Fully Assessed Reason for Visit: Insurance Authorization [[id number]] Prescriptions as of 01/02/2024 - metoprolol succinate ER (TOPROL XL) 50 mg 24 hr tablet Take 1 tablet by mouth once daily. - gabapentin (NEURONTIN) 300 mg capsule TAKE 2 CAPSULES THREE TIMES DAILY DIRECTED - amLODIPine (NORVASC) 2.5 mg tablet Take 1 tablet by mouth once daily. as needed for a blood pressure 150/80 or greater. - crisaborole 2 % Apply to affected area two times a day. Apply a thin film to affected area(s) 2 times daily - DULoxetine (CYMBALTA) 60 mg capsule Take 1 capsule by mouth once daily. - omeprazole (PRILOSEC) 40 mg capsule Take 1 capsule by mouth once daily. - estradiol (ESTRACE) 0.01 % (0.1 mg/gram) vaginal cream Apply to urethral opening for atrophic vaginitis. Two to three times a week. - clobetasol (TEMOVATE) 0.05 % ointment Actually gets compounded RX 0.07% through [facility] from [employer] to use twice weekly - [employer] [facility] probiotics--Yeast and Vaginal PH support probiotic. Probiotic blend. Takes 1 by mouth at bedtime - triamcinolone (KENALOG) 0.025 % ointment Apply 1 application to affected area twice daily as needed. uses near vaginal area - dorzolamide HCl/PF (DORZOLAMIDE, PF,) 2 % drop Use 1 Drop in eyes three times daily. - glycerin-min oil-polycarbophil (REPLENS) gel Uses Replens cream 3 times weekly - COMPOUNDED PRESCRIPTION Massage therapy Dx: Fibromyalgia, Arthritis Problem List As Of Date 01/02/2024 Noted Resolved GENERALIZED ANXIETY DIS [F41.1] Essential hypertension [I10] Osteopenia [M85.80] Generalized osteoarthritis [M15.9] Fibromyalgia [M79.7] INSOMNIA, INTERMITTENT [G47.00] 10/16/2004 HYPERCHOLESTEROLEMIA [E78.00] 10/16/2004 Lichen sclerosus [L90.0] Mixed stress and urge urinary incontinence [N39*07/13/2015 Vitamin D deficiency [E55.9] 07/16/2016 Recurrent major depressive disorder, in partial*09/08/2017 Encounter Status:Closed by JIMENA PENNINGTON on 01/02/[address] [facility] CNOVon 01-01-2024 CNOV Office Visit (INTMWS ) -- KALINA RUDD ([id number]) 1940 [facility] Date Time Provider Department 01/01/24 3:00 PM MADDIE SAHU INTMWS During your visit today, we recorded the following information about you: Pulse Respiration Blood pressure Weight 68/minute 16/minute 157/59 62.2 kg Maddie Sahu APRN.[facility] 01/01/2024 4:01 PM Signed SUBJECTIVE: DTaP,Tdap,Td Vaccine(1 - Tdap) Never done Shingrix Vaccine(1 of 2) Never done RSV Vaccine(1 - 1-dose 75+ series) Never done Influenza Vaccine(1) due on 10/12/2023 Covid-19 Vaccine(2023- season) due on 10/12/2023 HPI Kalina Rudd is a 83 year old female. PMH significant for ACTIVE PROBLEM LIST Generalized Anxiety Disorder Essential Hypertension Osteopenia Generalized Osteoarthritis Fibromyalgia INSOMNIA, INTERMITTENT HYPERCHOLESTEROLEMIA Lichen Sclerosus Mixed Stress and Urge Urinary Incontinence Vitamin D Deficiency Recurrent Major Depressive Disorder, in Partial Remission (H[facility]) Presents regarding blood pressure today. She reports that she has been checking blood pressures at home for the last 1-2 weeks and SBP have been 170-180s when checking She has noted a headache. Reports taking metoprolol succinate daily, had a back log at home of pills from her mail order. HTN: Without report chest pain, palpitations, dyspnea, peripheral edema, orthopnea, fatigue and PND. Last 14 Encounter BP Readings: Date: BP: 01/01/2024 157/59[bp average[ 11/07/2023 136/72 05/07/2023 138/58 11/02/2022 148/60 01/15/2022 142/80 04/11/2021 178/64 02/28/2021 160/60 02/12/2021 160/74[average[ 12/26/2020 160/70 10/21/2020 122/70 10/06/2020 136/62 06/05/2020 132/72 01/18/2020 138/76 01/07/2020 132/84 Her most recent lipid panels: Cholesterol, Total (mg/dL) Date Value 11/07/2023 242 11/04/2022 240 12/01/2020 198 09/30/2019 238 HDL Cholesterol (mg/dL) Date Value 11/07/2023 48 11/04/2022 57 12/01/2020 45 09/30/2019 48 LDL Cholesterol (mg/dL) Date Value 11/07/2023 159 11/04/2022 161 12/01/2020 124 09/30/2019 159 Triglyceride (mg/dL) Date Value 11/07/2023 174 11/04/2022 111 12/01/2020 145 09/30/2019 154 Review of Systems Constitutional: Negative. Respiratory: Negative. Cardiovascular: Negative. Neurological: Positive for headaches. Objective BP 157/59 Pulse 68 Resp 16 Wt 62.2 kg (137 lb 2 oz) BMI 25.49 kg/m? Physical Exam Vitals and nursing note reviewed. Constitutional: Appearance: Normal appearance. HENT: Head: Normocephalic and atraumatic. Eyes: Conjunctiva/sclera: Conjunctivae normal. Neck: Thyroid: No thyromegaly. Vascular: Normal carotid pulses. No JVD. Cardiovascular: Rate and Rhythm: Normal rate and regular rhythm. Heart sounds: Normal heart sounds. Pulmonary: Effort: Pulmonary effort is normal. Breath sounds: Normal breath sounds. Abdominal: General: Abdomen is flat. Bowel sounds are normal. Palpations: Abdomen is soft. Musculoskeletal: Right lower leg: No edema. Left lower leg: No edema. Skin: General: Skin is warm and dry. Neurological: Mental Status: She is alert. ALLERGIES Allergen Reactions Amitriptyline Other: See Comments Could not urinate Codeine chest pain Sulfa (Sulfonamide * Hives, Swelling, Itching Trazodone vivid dreams Medications: metoprolol succinate ER (TOPROL XL) 50 mg 24 hr tablet Take 1 tablet by mouth once daily. gabapentin (NEURONTIN) 300 mg capsule TAKE 2 CAPSULES THREE TIMES DAILY DIRECTED crisaborole 2 % Apply to affected area two times a day. Apply a thin film to affected area(s) 2 times daily DULoxetine (CYMBALTA) 60 mg capsule Take 1 capsule by mouth once daily. omeprazole (PRILOSEC) 40 mg capsule Take 1 capsule by mouth once daily. estradiol (ESTRACE) 0.01 % (0.1 mg/gram) vaginal cream Apply to urethral opening for atrophic vaginitis. Two to three times a week. clobetasol (TEMOVATE) 0.05 % ointment Actually gets compounded RX 0.07% through [facility] from [employer] to use twice weekly [employer] [facility] probiotics--Yeast and Vaginal PH support probiotic. Probiotic blend. Takes 1 by mouth at bedtime dorzolamide HCl/PF (DORZOLAMIDE, PF,) 2 % drop Use 1 Drop in eyes three times daily. glycerin-min oil-polycarbophil (REPLENS) gel Uses Replens cream 3 times weekly COMPOUNDED PRESCRIPTION Massage therapy Dx: Fibromyalgia, Arthritis amLODIPine (NORVASC) 2.5 mg tablet Take 1 tablet by mouth once daily. as needed for a blood pressure 150/80 or greater. triamcinolone (KENALOG) 0.025 % ointment Apply 1 application to affected area twice daily as needed. uses near vaginal area (Patient not taking: Reported on 01/01/2024) PAST MEDICAL HISTORY Diagnosis Date Dysthymic disorder Depression (non-psychotic) Essential hypertension, benign Generalized anxiety di (more content not included)... Normal [facility] [place] 11-10-2023 [facility] Telephone (INTMWS) -- KALINA RUDD ([id number]) 1940 F T Date Time Provider Department 11/10/23 NELLI REYES During your visit today, we recorded the following information about you: Nelli Reyes APRN.CNP 11/10/2023 4:10 PM Signed Hello. Please call patient and let them know recent labs looked stable, vitamin d is with in normal limits so she does not need to restart a supplement. No changes needed at this time and to keep next scheduled appointment. Thanks. Maryjane Flores LPN 11/10/2023 4:29 PM Signed PATIENT NOTIFIED OF SAME. Allergies As of Date: 11/10/2023 Noted Allergy Reaction AMITRIPTYLINE 10/01/2012 14 - Other: See Comments Comments: Could not urinate CODEINE 10/16/2004 Comments: chest pain SULFA (SULFONAMIDE ANTIBIOTICS) 03/31/2015 4 - Hives 7 - Swelling 9 - Itching TRAZODONE 10/16/2004 Comments: vivid dreams Date Reviewed: 11/07/2023 Reviewed by: Nelli Reyes APRN.CNP - Fully Assessed Reason for Visit: Results [95] Prescriptions as of 11/10/2023 - zaleplon (SONATA) 5 mg capsule Take 1 capsule by mouth daily at bedtime for 30 days. - crisaborole 2 % Apply to affected area two times a day. Apply a thin film to affected area(s) 2 times daily - DULoxetine (CYMBALTA) 60 mg capsule Take 1 capsule by mouth once daily. - gabapentin (NEURONTIN) 300 mg capsule TAKE 2 CAPSULES THREE TIMES DAILY DIRECTED - metoprolol succinate ER (TOPROL XL) 50 mg 24 hr tablet Take 1 tablet by mouth once daily. - omeprazole (PRILOSEC) 40 mg capsule Take 1 capsule by mouth once daily. - estradiol (ESTRACE) 0.01 % (0.1 mg/gram) vaginal cream Apply to urethral opening for atrophic vaginitis. Two to three times a week. - clobetasol (TEMOVATE) 0.05 % ointment Actually gets compounded RX 0.07% through [facility] from [employer] to use twice weekly - [employer] probiotics--Yeast and Vaginal PH support probiotic. Probiotic blend. Takes 1 by mouth at bedtime - triamcinolone (KENALOG) 0.025 % ointment Apply 1 application to affected area twice daily as needed. uses near vaginal area - dorzolamide HCl/PF (DORZOLAMIDE, PF,) 2 % drop Use 1 Drop in eyes three times daily. - glycerin-min oil-polycarbophil (REPLENS) gel Uses Replens cream 3 times weekly - COMPOUNDED PRESCRIPTION Massage therapy Dx: Fibromyalgia, Arthritis Problem List As Of Date 11/10/2023 Noted Resolved GENERALIZED ANXIETY DIS [F41.1] Essential hypertension [I10] Osteopenia [M85.80] Generalized osteoarthritis [M15.9] Fibromyalgia [M79.7] INSOMNIA, INTERMITTENT [G47.00] 10/16/2004 HYPERCHOLESTEROLEMIA [E78.00] 10/16/2004 Lichen sclerosus [L90.0] Mixed stress and urge urinary incontinence [N39*07/13/2015 Vitamin D deficiency [E55.9] 07/16/2016 Recurrent major depressive disorder, in partial*09/08/2017 Encounter Status:Closed by MARYJANE FLORES on 11/10/23 Normal [facility] 25(OH)D3 [facility] 25-hydroxyvitamin D3 [Mass/Vol] 36.2 ng/mL Normal 31.0-80.0 [facility] Comment on above: Order Comment: Speci men Type: BLOOD SPECIMENOrdering Facility: [facility] Address: [address] [place] [address] Result Comment: Clas sification of 25 [place] Vitamin D status: Deficiency/Insufficiency: < or = 30 ng/ml. Sufficiency/Optimal Levels: 31-80 ng/mL Toxicity: > 100 ng/mL. Test performed by chemiluminescent immunoassay. Performed By: #### 1 989-3 ####[facility] LABCLIA [id number] [facility] [id number] [address] [place] CBC panel Auto (Bld)on 11-06 Erythrocyte distribution width (RBC) [Ratio] 13.4 % Normal 11.5-15.0 [facility] Comment on above: Order Comment: Speci men Type: BLOOD SPECIMENOrdering Facility: [facility] Address: [address] [place] [address] Performed By: #### 5 8410-2 ####[facility] LABCLIA [id number] [place] [address] [place] Hematocrit (Bld) [Volume fraction] 44.8 % Normal 36.0-46.0 [facility] Comment on above: Order Comment: Speci men Type: BLOOD SPECIMENOrdering Facility: [facility] Address: [address] [place] [address] Performed By: #### 5 8410-2 ####[facility] LABCLIA [id number] [address] [place] Hemoglobin (Bld) [Mass/Vol] 14.2 g/dL Normal 11.5-15.5 [facility] Comment on above: Order Comment: Speci men Type: BLOOD SPECIMENOrdering Facility: [facility] Address: [address] [place] [address] Performed By: #### 5 8410-2 ####[facility] LABIA [id number] [place] [address] [place] MCH (RBC) [Entitic mass] 30.2 pg Normal 26.0-34.0 [facility] Comment on above: Order Comment: Speci men Type: BLOOD SPECIMENOrdering Facility: [facility] Address: [address] [place] [address] Performed By: #### 5 8410-2 ####[facility] LABCLIA [id number] [place] [address] [place] MCHC (RBC) [Mass/Vol] 31.7 g/dL Normal 30.5-36.0 [facility] Comment on above: Order Comment: Speci men Type: BLOOD SPECIMENOrdering Facility: [facility] Address: [address] [place] [address] Performed By: #### 5 8410-2 ####[facility] LABIA [id number] [place] [address] [place] MCV (RBC) [Entitic vol] 95.3 fL Normal 80.0-100.0 [facility] Comment on above: Order Comment: Speci men Type: BLOOD SPECIMENOrdering Facility: [facility] Address: [address] [place] [address] Performed By: #### 5 8410-2 ####[facility] LABIA [id number] [place] [address] [place] Nucleated RBC (Bld) [#/Vol] 10*3/uL Normal <0.01 [facility] Comment on above: Order Comment: Speci men Type: BLOOD SPECIMENOrdering Facility: [facility] Address: [address] [place] [address] Performed By: #### 5 8410-2 ####[facility] LABIA [id number] [place] [address] [place] Platelet mean volume (Bld) [Entitic vol] 10.4 fL Normal 9.0-12.7 [facility] Comment on above: Order Comment: Speci men Type: BLOOD SPECIMENOrdering Facility: [facility] Address: [address] [place] [address] Performed By: #### 5 8410-2 ####[facility] LABIA [id number] [place] [address] [place] Platelets (Bld) [#/Vol] 285 10*3/uL Normal 150-400 [facility] Comment on above: Order Comment: Speci men Type: BLOOD SPECIMENOrdering Facility: [facility] Address: [address] [place] [address] Performed By: #### 5 8410-2 ####[facility] LABCLIA [id number] [place] [address] [place] RBC (Bld) [#/Vol] 4.70 10*6/uL Normal 3.90-5.20 [facility] Comment on above: Order Comment: Speci men Type: BLOOD SPECIMENOrdering Facility: [facility] Address: [address] [place] [address] Performed By: #### 5 8410-2 ####[facility] LABCLIA [id number] [place] [address] [place] WBC (Bld) [#/Vol] 7.05 10*3/uL Normal 3.70-11.00 [facility] Comment on above: Order Comment: Speci men Type: BLOOD SPECIMENOrdering Facility: [facility] Address: [address] [place] [address] Performed By: #### 5 8410-2 ####[facility] LABIA [id number] [place] [address] [place] CNOVon 11-07-2023 CNOV Office Visit (INTMWS ) -- KALINA RUDD ([id number]) 1940 F [facility] Date Time Provider Department 11/07/23 3:00 PM NELLI REYES INTMWS During your visit today, we recorded the following information about you: Pulse Blood pressure Weight 60/minute 136/72 63.1 kg Nelli Reyes APRN.[facility] 11/07/2023 3:27 PM Signed SUBJECTIVE Kalina Mcgee Tobin is a 83 year old female here today for a check up on her medical problems. Chief Complaint Patient presents with: F/U 6 months Derm Problem: itchy areas on chest, neck and upper back HPI Kalina Rudd is a 83 year old female. She is an established patient of Karen Resendiz MD. Here today for a 6 month follow up. Concerns of a rash that has itchy patches on the chest, neck and upper back. Prior diagnosis of Eczema. Has tried OTCs and topical steroid ointments. These have not been helpful. Also notes not sleeping great. Prior side effects with amitriptyline and trazodone. Hard time falling asleep and staying asleep. Mood is doing okay. Otherwise doing okay. Taking her medicines. Has not done her blood work yet. Mood stable. Her medications were reviewed today and her list is now up to date. Medications Current Outpatient Medications Medication Sig DULoxetine (CYMBALTA) 60 mg capsule Take 1 capsule by mouth once daily. gabapentin (NEURONTIN) 300 mg capsule TAKE 2 CAPSULES THREE TIMES DAILY DIRECTED metoprolol succinate ER (TOPROL XL) 50 mg 24 hr tablet Take 1 tablet by mouth once daily. omeprazole (PRILOSEC) 40 mg capsule Take 1 capsule by mouth once daily. estradiol (ESTRACE) 0.01 % (0.1 mg/gram) vaginal cream Apply to urethral opening for atrophic vaginitis. Two to three times a week. clobetasol (TEMOVATE) 0.05 % ointment Actually gets compounded RX 0.07% through [facility] from [employer] to use twice weekly dorzolamide HCl/PF (DORZOLAMIDE, PF,) 2 % drop Use 1 Drop in eyes three times daily. glycerin-min oil-polycarbophil (REPLENS) gel Uses Replens cream 3 times weekly zaleplon (SONATA) 5 mg capsule Take 1 capsule by mouth daily at bedtime for 30 days. crisaborole 2 % Apply to affected area two times a day. Apply a thin film to affected area(s) 2 times daily [employer] probiotics--Yeast and Vaginal PH support probiotic. Probiotic blend. Takes 1 by mouth at bedtime triamcinolone (KENALOG) 0.025 % ointment Apply 1 application to affected area twice daily as needed. uses near vaginal area (Patient not taking: Reported on 11/07/2023) COMPOUNDED PRESCRIPTION Massage therapy Dx: Fibromyalgia, Arthritis No current facility-administered medications for this visit. ALLERGIES Allergen Reactions Amitriptyline Other: See Comments Could not urinate Codeine chest pain Sulfa (Sulfonamide * Hives, Swelling, Itching Trazodone vivid dreams ACTIVE PROBLEM LIST Recurrent Major Depressive Disorder, in Partial Remission ([facility]) - 09/08/2017 Vitamin D Deficiency - 07/16/2016 Mixed Stress and Urge Urinary Incontinence - 07/13/2015 Lichen Sclerosus INSOMNIA, INTERMITTENT - 10/16/2004 HYPERCHOLESTEROLEMIA - 10/16/2004 Generalized Anxiety Disorder Comment: Anxiety, Generalized Essential Hypertension Osteopenia Generalized Osteoarthritis Fibromyalgia Social History Tobacco Use Smoking status: Never Smokeless tobacco: Never Substance Use Topics Alcohol use: No Drug use: No Review of Systems Respiratory: Negative. Cardiovascular: Negative. Musculoskeletal: Negative. Skin: Positive for rash. Psychiatric/Behavioral: Positive for sleep disturbance. OBJECTIVE BP 136/72 Pulse 60 Wt 139 lb 1.8 oz (63.1kg) SpO2 99% Physical Exam Vitals and nursing note reviewed. Constitutional: General: She is awake. She is not in acute distress. Appearance: Normal appearance. She is well-developed and well-groomed. She is not ill-appearing, toxic-appearing or diaphoretic. HENT: Head: Normocephalic. Right Ear: External ear normal. Left Ear: External ear normal. Nose: Nose normal. Eyes: General: Vision grossly intact. Conjunctiva/sclera: Conjunctivae normal. Pupils: Pupils are equal, round, and reactive to light. Neck: Vascular: No JVD. Trachea: Trachea normal. Cardiovascular: Rate and Rhythm: Normal rate and regular rhythm. Pulses: Normal pulses. Heart sounds: Normal heart sounds. No murmur heard. Pulmonary: Effort: Pulmonary effort is normal. No accessory muscle usage, prolonged expiration or respiratory distress. Breath sounds: Normal breath sounds. Musculoskeletal: Cervical back: Neck supple. Skin: General: Skin is warm and dry. Capillary Refill: Capillary refill takes less than 2 seconds. Neurological: General: No focal deficit present. Mental Status: She is alert and oriented to person, place, and time. Mental status is at baseline. Psychiatric: (more content not included)... Normal [facility] Comprehensive metabolic 2000 panelon 11-07-2023 Albumin [Mass/Vol] 4.3 g/dL Normal 3.9-4.9 [facility] Comment on above: Order Comment: Speci men Type: BLOOD SPECIMENOrdering Facility: [facility] Address: [address] [place] [address] Performed By: #### 2 4323-8, 26307-3, ####[facility] LABCLIA [id number] [place] [id number] [place] ALP [Catalytic activity/Vol] 93 U/L Normal 34-123 [facility] Comment on above: Order Comment: Speci men Type: BLOOD SPECIMENOrdering Facility: [facility] Address: [address] [place] [address] Performed By: #### 2 4323-8, 49053-9, ####[facility] LABIA [id number] [place] [address] [place] ALT [Catalytic activity/Vol] 6 U/L Low 7-38 [facility] Comment on above: Order Comment: Speci men Type: BLOOD SPECIMENOrdering Facility: [facility] Address: [address] [place] [address] Performed By: #### 2 4323-8, , ####[facility] LABIA [id number] [place] [address] [place] Anion gap [Moles/Vol] 11 mmol/L Normal 8-15 [facility] Comment on above: Order Comment: Speci men Type: BLOOD SPECIMENOrdering Facility: [facility] Address: [address] [place] [address] Performed By: #### 2 4323-8, 36318-9, ####[facility] LABIA [id number] [place] [address] [place] AST [Catalytic activity/Vol] 18 U/L Normal 13-35 [facility] Comment on above: Order Comment: Speci men Type: BLOOD SPECIMENOrdering Facility: [facility] Address: [address] [place] [address] Performed By: #### 2 4323-8, 98511-4, ####[facility] LABCLIA [id number] [address] [address] [place] Bilirubin [Mass/Vol] 0.7 mg/dL Normal 0.2-1.3 [facility] Comment on above: Order Comment: Speci men Type: BLOOD SPECIMENOrdering Facility: [facility] Address: [address] [place] [address] Performed By: #### 2 4323-8, 21892-6, ####[facility] LABCLIA [id number] [place] [address] [place] Calcium [Mass/Vol] 9.9 mg/dL Normal 8.5-10.2 [facility] Comment on above: Order Comment: Speci men Type: BLOOD SPECIMENOrdering Facility: [facility] Address: [address] [place] [address] Performed By: #### 2 4323-8, 20424-9, ####[facility] LABCLIA [id number] [place] [address] [place] Chloride [Moles/Vol] 105 mmol/L Normal 98-107 [facility] Comment on above: Order Comment: Speci men Type: BLOOD SPECIMENOrdering Facility: [facility] Address: [address] [place] [address] Performed By: #### 2 4323-8, 16607-5, ####[facility] LABCLIA [id number] [address] [address] [place] CO2 [Moles/Vol] 25 mmol/L Normal 22-30 [facility] Comment on above: Order Comment: Speci men Type: BLOOD SPECIMENOrdering Facility: [facility] Address: [address] [place] [address] Performed By: #### 2 4323-8, 92096-5, ####[facility] LABCLIA [id number] [address] [address] [place] Creatinine [Mass/Vol] 0.90 mg/dL Normal 0.58-0.96 [facility] Comment on above: Order Comment: Speci men Type: BLOOD SPECIMENOrdering Facility: [facility] Address: [address] [place] [address] Performed By: #### 2 4323-8, 45477-2, ####[facility] LABIA [id number] [place] [address] [place] Creatinine and Glomerular filtration rate.predicted panel (S/P/Bld) 64 mL/min/1.73m??? Normal >=60 [facility] Comment on above: Order Comment: Tiffanie men Type: BLOOD SPECIMENOrdering Facility: [facility] Address: [address] [place] [address] Result Comment: Shara mated Glomerular Filtration Rate (eGFR) is calculated using the 2020 CKD-EPI creatinine equation. This equation utilizes serum creatinine, sex, and age as parameters. The creatinine assay has traceable calibration to isotope dilution-mass spectrometry. Refer to KDIGO guidelines for clinical interpretation. In patients with unstable renal function, e.g. those with acute kidney injury, the eGFR may not accurately reflect actual GFR. Performed By: #### 2 4323-8, , ####[facility] LABIA [id number] [address] [address] [place] Glucose [Mass/Vol] 93 mg/dL Normal 74-99 [facility] Comment on above: Order Comment: Speci men Type: BLOOD SPECIMENOrdering Facility: [facility] Address: [address] [place] [address] Result Comment: The [place] [employer] (ADA) provides guidance for cutoff values for fasting glucose and random glucose. The ADA defines fasting as no caloric intake for at least 8 hours. Fasting plasma glucose results between 100 to 125 mg/dL indicate increased risk for diabetes (prediabetes). Fasting plasma glucose results greater than or equal to 126 mg/dL meet the criteria for diagnosis of diabetes. In the absence of unequivocal hyperglycemia, results should be confirmed by repeat testing. In a patient with classic symptoms of hyperglycemia or hyperglycemic crisis, random plasma glucose results greater than or equal to 200 mg/dL meet the criteria for diagnosis of diabetes. Reference: Standards of Medical Care in Diabetes 2016, [place] [employer]. Diabetes Care. 2016.39(Suppl 1). Performed By: #### 2 4323-8, 93817-3, ####[facility] LABCLIA [id number] [address] [address] [place] Potassium [Moles/Vol] 4.3 mmol/L Normal 3.7-5.1 [facility] Comment on above: Order Comment: Speci men Type: BLOOD SPECIMENOrdering Facility: [facility] Address: [address] [place] [address] Performed By: #### 2 4323-8, , ####[facility] LABCLIA [id number] [place] [address] [place] Protein [Mass/Vol] 7.7 g/dL Normal 6.3-8.0 [facility] Comment on above: Order Comment: Speci men Type: BLOOD SPECIMENOrdering Facility: [facility] Address: [address] [place] [address] Performed By: #### 2 4323-8, , ####[facility] LABCLIA [id number] [address] [address] [place] Sodium [Moles/Vol] 141 mmol/L Normal 136-144 [facility] Comment on above: Order Comment: Speci men Type: BLOOD SPECIMENOrdering Facility: [facility] Address: [address] [place] [address] Performed By: #### 2 4323-8, , ####[facility] LABCLIA [id number] [address] [address] [place] Urea nitrogen [Mass/Vol] 18 mg/dL Normal 7-21 [facility] Comment on above: Order Comment: Speci men Type: BLOOD SPECIMENOrdering Facility: [facility] Address: [address] [place] [address] Performed By: #### 2 4323-8, 57806-8, ####[facility] LABCLIA [id number] [address] [address] [place] Lipid 1996 panelon 4 Cholesterol [Mass/Vol] 242 mg/dL High <200 [facility] Comment on above: Order Comment: Speci men Type: BLOOD SPECIMENOrdering Facility: [facility] Address: [address] [place] [address] Result Comment: <200 mg/dL, Desirable 200-239 mg/dL, Borderline high >239 mg/dL, High Performed By: #### 2 4323-8, 39955-1, ####[facility] LABCLIA [id number] [place] [id number] [place] Cholesterol in HDL [Mass/Vol] 48 mg/dL Normal >39 [facility] Comment on above: Order Comment: Speci men Type: BLOOD SPECIMENOrdering Facility: [facility] Address: [address] [place] [address] Result Comment: 40-5 9 mg/dL, Acceptable >59 mg/dL, High: Negative risk factor for coronary heart disease <40 mg/dL, Low: Positive risk factor for coronary heart disease Performed By: #### 2 4323-8, 00139-6, ####[facility] LABCLIA [id number] [address] [address] [place] Cholesterol in LDL [Mass/Vol] 159 mg/dL High <100 [facility] Comment on above: Order Comment: Speci men Type: BLOOD SPECIMENOrdering Facility: [facility] Address: [address] [place] [address] Result Comment: <100 mg/dL, Optimal 100-129 mg/dL, Near optimal/above optimal 130-159 mg/dL, Borderline high 160-189 mg/dL, High >189 mg/dL, Very high Secondary prevention optimal LDL Cholesterol levels are recommended to be < 70 mg/dL Performed By: #### 2 4323-8, 14098-6, ####[facility] LABCLIA [id number] [address] [address] [place] Cholesterol in LDL/Cholesterol in HDL [Mass ratio] 3.31 {ratio} High <2.54 [facility] Comment on above: Order Comment: Speci men Type: BLOOD SPECIMENOrdering Facility: [facility] Address: [address] [place] [address] Result Comment: Refe rence: 1. National Cholesterol Education Program ATP III Guideline At-A-Glance Quick Desk Reference: National Heart, Lung, and Blood [place]. National Institutes of Health. 2001: NIH Publication No. 01-3305. 2. An International Atherosclerosis Society position paper: global recommendations for the management of dyslipidemia: executive summary, Atherosclerosis. 2014: 232(2):410-413. Performed By: #### 2 4323-8, , ####[facility] LABCLIA [id number] [place] [address] [place] Cholesterol in VLDL [Mass/Vol] 35 mg/dL High <30 [facility] Comment on above: Order Comment: Speci men Type: BLOOD SPECIMENOrdering Facility: [facility] Address: [address] [place] [address] Performed By: #### 2 4323-8, 95245-3, ####[facility] LABCLIA [id number] [address] [address] [place] Cholesterol non HDL [Mass/Vol] 194 mg/dL High <130 [facility] Comment on above: Order Comment: Speci men Type: BLOOD SPECIMENOrdering Facility: [facility] Address: [address] [place] [address] Result Comment: <130 mg/dL, Optimal 130-159 mg/dL, Near optimal/above optimal 160-189 mg/dL, Borderline high 190-219 mg/dL, High >219 mg/dL, Very high Secondary prevention optimal non HDL Cholesterol levels are recommended to be <100 mg/dL Performed By: #### 2 4323-8, 06827-3, ####[facility] LABCLIA [id number] [place] [address] [place] Cholesterol.total/Chol esterol in HDL [Mass ratio] 5.04 {ratio} Normal <5.10 [facility] Comment on above: Order Comment: Speci men Type: BLOOD SPECIMENOrdering Facility: [facility] Address: [address] [place] [address] Performed By: #### 2 4323-8, 11604-2, ####[facility] LABCLIA [id number] [place] [address] [place] FASTING TIME 12 hrs Normal [facility] Comment on above: Order Comment: Speci men Type: BLOOD SPECIMENOrdering Facility: [facility] Address: [address] [place] [address] Performed By: #### 2 4323-8, 91626-9, ####[facility] LABCLIA [id number] [place] [address] [place] Triglyceride [Mass/Vol] 174 mg/dL High <150 [facility] Comment on above: Order Comment: Speci men Type: BLOOD SPECIMENOrdering Facility: [facility] Address: [address] [place] [address] Result Comment: <150 mg/dL, Normal 150-199 mg/dL, Borderline high 200-499 mg/dL, High >499 mg/dL, Very high Performed By: #### 2 4323-8, 82656-9, ####[facility] LABCLIA [id number] [place] [id number] [place] Magnesium SerPl-mCncon 11-06 Magnesium [Mass/Vol] 2.2 mg/dL Normal 1.7-2.3 [facility] Comment on above: Order Comment: Speci men Type: BLOOD SPECIMENOrdering Facility: [facility] Address: [address] [place] [address] Performed By: #### 2 4323-8, 36771-1, 48893-8 ####[facility] LABCLIA [id number] [place] [address] [place] CBC panel Auto (Bld)on 11-05 Erythrocyte distribution width (RBC) [Ratio] 13.7 % 11.5 - 15.0 % [facility] Hematocrit (Bld) [Volume fraction] 45.7 % 36.0 - 46.0 % [facility] Hemoglobin (Bld) [Mass/Vol] 14.4 g/dL 11.5 - 15.5 g/dL [facility] MCH (RBC) [Entitic mass] 30.3 pg 26.0 - 34.0 pg [facility] MCHC (RBC) [Mass/Vol] 31.5 g/dL 30.5 - 36.0 g/dL [facility] MCV (RBC) [Entitic vol] 96.2 fL 80.0 - 100.0 fL [facility] Nucleated RBC (Bld) [#/Vol] <0.01 k/uL [facility] Platelet mean volume (Bld) [Entitic vol] 10.7 fL 9.0 - 12.7 fL [facility] Platelets (Bld) [#/Vol] 288 10*3/uL 150 - 400 k/uL [facility] RBC (Bld) [#/Vol] 4.75 10*6/uL 3.90 - 5.2 0 m/uL [facility] WBC (Bld) [#/Vol] 7.58 10*3/uL 3.70 - 11.00 k/uL [facility] Comprehensive metabolic 2000 panelon 11-05-2022 Albumin [Mass/Vol] 4.3 g/dL 3.9 - 4.9 g/dL [facility] ALP [Catalytic activity/Vol] 100 U/L 34 - 123 U/L [facility] ALT [Catalytic activity/Vol] 11 U/L 7 - 38 U/L [facility] Anion gap [Moles/Vol] 10 mmol/L 9 - 18 mmol/L [facility] AST [Catalytic activity/Vol] 18 U/L 13 - 35 U/L [facility] Bilirubin [Mass/Vol] 0.6 mg/dL 0.2 - 1 .3 mg/dL [facility] Calcium [Mass/Vol] 9.9 mg/dL 8.5 - 10. 2 mg/dL [facility] Chloride [Moles/Vol] 105 mmol/L 97 - 10 5 mmol/L [facility] CO2 [Moles/Vol] 27 mmol/L 22 - 30 mmol/L [facility] Creatinine [Mass/Vol] 0.87 mg/dL 0.58 - 0.96 mg/dL [facility] Estimated Glomerular Filtration Rate 67 mL/min/1.73m >=60 mL/min/1.73 m [facility] Glucose [Mass/Vol] 86 mg/dL 74 - 99 mg/dL [facility] Potassium [Moles/Vol] 5.2 mmol/L High 3.7 - 5.1 mmol/L [facility] Protein [Mass/Vol] 7.2 g/dL 6.3 - 8.0 g/dL [facility] Sodium [Moles/Vol] 142 mmol/L 136 - 144 mmol/L [facility] Urea nitrogen [Mass/Vol] 17 mg/dL 7 - 21 mg/dL [facility] Lipid 1996 panelon 3 Cholesterol [Mass/Vol] 240 mg/dL High <200 mg/dL [facility] Cholesterol in HDL [Mass/Vol] 57 mg/dL >39 mg/dL [facility] Cholesterol in LDL [Mass/Vol] 161 mg/dL High <100 mg/dL [facility] Cholesterol in LDL/Cholesterol in HDL [Mass ratio] 2.82 {ratio} High <2.54 [facility] Cholesterol in VLDL [Mass/Vol] 22 mg/dL <30 mg/dL [facility] Cholesterol non HDL [Mass/Vol] 183 mg/dL High <130 mg/dL [facility] Cholesterol.total/Chol esterol in HDL [Mass ratio] 4.21 {ratio} <5.10 [facility] Fasting Time 18 hrs [facility] Triglyceride [Mass/Vol] 111 mg/dL <150 mg/dL [facility] MAGNESIUM [facility] 11-05-2022 Magnesium [Mass/Vol] 2.3 mg/dL 1.7 - 2 .3 mg/dL [facility] T4 FREE/FREE THYROXon 2022 Free T4 [Mass/Vol] 1.1 ng/dL 0.9 - 1.7 ng/dL [facility] TSH [facility] 11-05-2022 TSH Qn 2.230 m[IU]/L 0.270 - 4.200 mIU/L [facility] VITAMIN D 25 HYDROXYon 11-05 25-hydroxyvitamin D3 [Mass/Vol] 48.5 ng/mL 31.0 - 80.0 ng/mL [facility] Vital Signs Date Time Vital Sign Value Performing Clinician Facility 09-08-2024 14:25-0400 Body mass index (BMI) [Ratio] 25.16 kg/m2 Nelli Muellerr OPERATOR TECHNICIAN.[employer] Work Phone: [facility] 09-08-2024 14:25-0400 Body weight 58.9 kg Nelli Muellerr OPERATOR TECHNICIAN.[employer] Work Phone: [facility] 09-08-2024 14:25-0400 Diastolic blood pressure 72 mm[Hg] Nelli Muellerr OPERATOR TECHNICIAN.[employer] Work Phone: [facility] 09-08-2024 14:25-0400 Heart rate 68 /min Nelli Haley OPERATOR TECHNICIAN.[employer] Work Phone: [facility] 09-08-2024 14:25-0400 Respiratory rate 16 /min Nelli Haley OPERATOR TECHNICIAN.[employer] Work Phone: [facility] 09-08-2024 14:25-0400 SaO2% (BldA) [Mass fraction] 98 % Nelli Muellerr OPERATOR TECHNICIAN.[employer] Work Phone: [facility] 09-08-2024 14:25-0400 Systolic blood pressure 128 mm[Hg] Nelli Muellerr OPERATOR TECHNICIAN.[employer] Work Phone: [facility] 09-07-2024 08:12-0400 Body height 157.[address] Karen Resendiz MD Work Phone: [facility] 09-07-2024 08:12-0400 Body mass index (BMI) [Ratio] 23.6 kg/m2 Dr. Karen Resendiz MD Work Phone: [facility] 09-07-2024 08:12-0400 Body weight 58.[address] Karen Resendiz MD Work Phone: [facility] 09-07-2024 08:12-0400 Diastolic blood pressure 55 mm[Hg] Dr. Karen Resendiz MD Work Phone: [facility] 09-07-2024 08:12-0400 Heart rate 73 /min Dr. Karen Resendiz MD Work Phone: [facility] 09-07-2024 08:12-0400 Respiratory rate 18 /min Dr. Karen Resendiz MD Work Phone: [facility] 09-07-2024 08:12-0400 Systolic blood pressure 136 mm[Hg] Dr. Karen Resendiz MD Work Phone: [facility] 06-30-2024 16:47-0400 Body temperature 98.2 [degF] Karen Resendiz MD Work Phone: [facility] 06-30-2024 16:47-0400 Diastolic blood pressure 62 mm[Hg] Karen Resendiz MD Work Phone: [facility] 06-30-2024 16:47-0400 Heart rate 74 /min Karen Resendiz MD Work Phone: [facility] 06-30-2024 16:47-0400 SaO2% (BldA) [Mass fraction] 97 % Karen Resendiz MD Work Phone: [facility] 06-30-2024 16:47-0400 Systolic blood pressure 122 mm[Hg] Karen Resendiz MD Work Phone: [facility] 05-11-2024 13:14-0400 Body height 153 cm Karen Resendiz MD Work Phone: [facility] 05-11-2024 13:14-0400 Body mass index (BMI) [Ratio] 27.13 kg/m2 Karen Resendiz MD Work Phone: [facility] 05-11-2024 13:14-0400 Body weight 63.5 kg Karen Resendiz MD Work Phone: [facility] 05-11-2024 13:14-0400 Diastolic blood pressure 58 mm[Hg] Karen Resendiz MD Work Phone: [facility] 05-11-2024 13:14-0400 Heart rate 80 /min Karen Resendiz MD Work Phone: [facility] 05-11-2024 13:14-0400 Respiratory rate 16 /min Karen Resendiz MD Work Phone: [facility] 05-11-2024 13:14-0400 Systolic blood pressure 122 mm[Hg] Karen Resendiz MD Work Phone: [facility] 03-12-2024 11:41-0500 Body mass index (BMI) [Ratio] 25.94 kg/m2 Alexei Skelton MD Work Phone: [facility] 03-12-2024 11:41-0500 Body temperature 100 [degF] Alexei Skelton MD Work Phone: [facility] 03-12-2024 11:41-0500 Body weight 63.3 kg Alexei Skelton MD Work Phone: [facility] 03-12-2024 11:41-0500 Diastolic blood pressure 60 mm[Hg] Alexei Skelton MD Work Phone: [facility] 03-12-2024 11:41-0500 Heart rate 81 /min Alexei Skelton MD Work Phone: [facility] 03-12-2024 11:41-0500 Respiratory rate 20 /min Alexei Skelton MD Work Phone: [facility] 03-12-2024 11:41-0500 SaO2% (BldA) [Mass fraction] 95 % Alexei Skelton MD Work Phone: [facility] 03-12-2024 11:41-0500 Systolic blood pressure 128 mm[Hg] Alexei Skelton MD Work Phone: [facility] 01-27-2024 12:40-0500 Diastolic blood pressure 60 mm[Hg] Karen Resendiz MD Work Phone: [facility] 01-27-2024 12:40-0500 Systolic blood pressure 122 mm[Hg] Karen Resendzi MD Work Phone: [facility] 01-27-2024 11:56-0500 Body mass index (BMI) [Ratio] 24.88 kg/m2 Karen Resendiz MD Work Phone: [facility] 01-27-2024 11:56-0500 Body temperature 97.5 [degF] Karen Resendiz MD Work Phone: [facility] 01-27-2024 11:56-0500 Body weight 60.7 kg Karen Resendiz MD Work Phone: [facility] 01-27-2024 11:56-0500 Heart rate 82 /min Karen Resendiz MD Work Phone: [facility] 01-27-2024 11:56-0500 Respiratory rate 21 /min Karen Resendiz MD Work Phone: [facility] 01-27-2024 11:56-0500 SaO2% (BldA) [Mass fraction] 97 % Karen Resendiz MD Work Phone: [facility] 01-26-2024 12:00-0500 Body temperature 98.78 [degF] DR GERSON LY MD [facility] 01-26-2024 12:00-0500 Diastolic Blood Pressure Non-Invasive 61 mm[Hg] DR GERSON LY MD [facility] 01-26-2024 12:00-0500 Mean blood pressure 78 mm[Hg] DR GERSON LY MD [address] [place] [address] 01-26-2024 12:00-0500 Respiratory rate 18 /min DR GERSON LY MD [address] [place] [address] 12:00-0500 Systolic Blood Pressure Non-Invasive 139 mm[Hg] DR GERSON LY MD [address] [place] [address] 01-26-2024 09:18-0500 Heart rate 68 /min DR GERSON LY MD [address] [place] [address] 09:18-0500 Reason For Taking VItal Signs DR GERSON LY MD [address] [place] [address] 01-26-2024 06:57-0500 Heart rate 73 /min DR GERSON LY MD [address] [place] [address] 01-26-2024 06:54-0500 Body temperature 96.8 [degF] DR GERSON LY MD [address] [place] [address] 01-26-2024 06:54-0500 Diastolic Blood Pressure Non-Invasive 55 mm[Hg] DR GERSON LY MD [address] [place] [address] 01-26-2024 06:54-0500 Heart rate 76 /min DR GERSON LY MD [address] [place] [address] 01-26-2024 06:54-0500 Mean blood pressure 91 mm[Hg] DR GERSON LY MD [address] [place] [address] 01-26-2024 06:54-0500 Reason For Taking VItal Signs DR GERSON LY MD [address] [place] [address] 01-26-2024 06:54-0500 Respiratory rate 16 /min DR GERSON LY MD [address] [place] [address] 01-26-2024 06:54-0500 Systolic Blood Pressure Non-Invasive 163 mm[Hg] DR GERSON LY MD [address] [place] [address] 01-26-2024 04:17-0500 Diastolic Blood Pressure Non-Invasive 54 mm[Hg] DR GERSON LY MD [address] [place] [address] 01-26-2024 04:17-0500 Reason For Taking VItal Signs DR GERSON LY MD [address] [place] [address] 04:17-0500 Respiratory rate 16 /min DR GERSON LY MD [address] [place] [address] 01-26-2024 04:17-0500 Systolic Blood Pressure Non-Invasive 138 mm[Hg] DR GERSON LY MD [address] [place] [address] 01-25-2024 22:55-05[address] Cuff Size DR GERSON LY MD [address] [place] [address] 22:55-[address] GERSON LY MD [address] [place] [address] 01-25-2024 22:55-[address] GERSON LY MD [address] [place] [address] 01-25-2024 22:55-0500 Body temperature 98.06 [degF] DR GERSON LY MD [address] [place] [address] 01-25-2024 22:55-0500 Mean blood pressure 89 mm[Hg] DR GERSON LY MD [address] [place] [address] 01-25-2024 19:26-0500 Blood Pressure Cuff Size DR GERSON LY MD [address] [place] [address] 01-25-2024 19:26-[address] GERSON LY MD [address] [place] [address] 01-25-2024 19:26-[address] GERSON LY MD [address] [place] [address] 01-25-2024 19:21-0500 Blood Pressure Cuff Size DR GERSON LY MD [facility] 01-25-2024 19:21-[address] GERSON LY MD [facility] 01-25-2024 19:21-[address] GERSON LY MD [address] [place] [address] 01-25-2024 05:37-0500 Heart rate 81 /min DR GERSON LY MD [address] [place] [address] 01-25-2024 02:21-0500 Body height 157.[address] GERSON LY MD [address] 01-25-2024 02:21-0500 Body weight 61.[address] GERSON LY MD [address] 01-25-2024 02:21-0500 Body weight 24.64 kg/m2 DR GERSON LY MD [address] [place] [address] 01-25-2024 02:10-0500 Heart rate 82 /min DR GERSON LY MD [address] 01-20-2024 15:54-0500 Reason For Taking VItal Signs RODRIGO HAYES MD [facility] 01-20-2024 14:47-0500 Blood Pressure Cuff Size RODRIGO HAYES MD [facility] 01-20-2024 14:47-0500 Blood Pressure Location RODRIGO HAYES MD [facility] 01-20-2024 14:47-0500 Blood Pressure Method RODRIGO HAYES MD [facility] 01-20-2024 14:47-0500 Body temperature 97.52 [degF] RODRIGO HAYES MD [facility] 01-20-2024 14:47-0500 Diastolic Blood Pressure Non-Invasive 52 mm[Hg] RODRIGO HAYES MD [address] [place] [address] 01-20-2024 14:47-0500 Heart rate 77 /min RODRIGO HAYES MD [address] [place] [address] 01-20-2024 14:47-0500 Reason For Taking VItal Signs RODRIGO HAYES MD [address] [place] [address] 01-20-2024 14:47-0500 Respiratory rate 20 /min RODRIGO HAYES MD [address] [place] [address] 01-20-2024 14:47-0500 Systolic Blood Pressure Non-Invasive 118 mm[Hg] RODRIGO HAYES MD [address] [place] [address] 01-20-2024 11:04-0500 Body temperature 98.06 [degF] RODRIGO HAYES MD [address] [place] [address] 01-20-2024 11:04-0500 Diastolic Blood Pressure Non-Invasive 42 mm[Hg] RODRIGO HAYES MD [address] [place] [address] 01-20-2024 11:04-0500 Heart rate 72 /min RODRIGO HAYES MD [address] [place] [address] 01-20-2024 11:04-0500 Mean blood pressure 71 mm[Hg] RODRIGO HAYES MD [address] [place] [address] 01-20-2024 11:04-0500 Reason For Taking VItal Signs RODRIGO HAYES MD [address] [place] [address] 01-20-2024 11:04-0500 Respiratory rate 26 /min RODRIGO HAYES MD [address] [place] [address] 01-20-2024 11:04-0500 Systolic Blood Pressure Non-Invasive 127 mm[Hg] RODRIGO HAYES MD [address] [place] [address] 01-20-2024 08:52-0500 Heart rate 88 /min RODRIGO HAYES MD [address] [place] [address] 01-20-2024 08:48-0500 Blood Pressure Cuff Size RODRIGO HAYES MD [address] [place] [address] 01-20-2024 08:48-0500 Blood Pressure Location RODRIGO HAYES MD [address] [place] [address] 01-20-2024 08:48-0500 Blood Pressure Method RODRIGO HAYES MD [address] [place] [address] 01-20-2024 08:48-0500 Body temperature 97.52 [degF] RODRIGO HAYES MD [address] [place] [address] 01-20-2024 08:48-0500 Diastolic Blood Pressure Non-Invasive 57 mm[Hg] RODRIGO HAYES MD [address] [place] [address] 01-20-2024 08:48-0500 Heart rate 91 /min RODRIGO HAYES MD [address] [place] [address] 01-20-2024 08:48-0500 Mean blood pressure 72 mm[Hg] RODRIGO HAYES MD [address] [place] [address] 01-20-2024 08:48-0500 Respiratory rate 26 /min RODRIGO HAYES MD [address] [place] [address] 01-20-2024 08:48-0500 Systolic Blood Pressure Non-Invasive 117 mm[Hg] RODRIGO HAYES MD [address] [place] [address] 01-20-2024 04:45-0500 Blood Pressure Cuff Size RODRIGO HAYES MD [address] [place] [address] 01-20-2024 04:45-0500 Blood Pressure Location RODRIGO HAYES MD [address] [place] [address] 01-20-2024 04:45-0500 Blood Pressure Method RODRIGO HAYES MD [address] [place] [address] 01-19-2024 21:30-0500 Mean blood pressure 68 mm[Hg] RODRIGO HAYES MD [address] [place] [address] 01-19-2024 19:11-0500 Heart rate 80 /min RODRIGO HAYES MD [address] [place] [address] 01-19-2024 10:19-0500 Heart rate 135 /min RODRIGO HAYES MD [address] [place] [address] 01-18-2024 23:08-0500 Heart rate 104 /min RODRIGO HAYES MD [address] [place] [address] 01-18-2024 19:00-0500 Heart rate 118 /min RODRIGO HAYES MD [address] [place] [address] 01-18-2024 04:51-0500 Body height 157.5 cm RODRIGO HAYES MD [address] [place] [address] 01-18-2024 04:51-0500 Body weight 66 kg RODRIGO HAYES MD [address] [place] [address] 01-18-2024 04:51-0500 Body weight 26.61 kg/m2 RODRIGO HAYES MD [address] [place] [address] 01-01-2024 15:26-0500 Diastolic blood pressure 59 mm[Hg] Maddie Sahu OPERATOR TECHNICIAN.LAWN CARE SPECIALIST Work Phone: [facility] Comment on above: bp average 01-01-2024 15:26-0500 Heart rate 68 /min Maddie Sahu OPERATOR TECHNICIAN.LAWN CARE SPECIALIST Work Phone: [facility] 01-01-2024 15:26-0500 Systolic blood pressure 157 mm[Hg] Maddie Sahu OPERATOR TECHNICIAN.LAWN CARE SPECIALIST Work Phone: [facility] Comment on above: bp average 01-01-2024 15:18-0500 Body mass index (BMI) [Ratio] 25.49 kg/m2 Maddie Sahu OPERATOR TECHNICIAN.LAWN CARE SPECIALIST Work Phone: [facility] 01-01-2024 15:18-0500 Body weight 62.2 kg Maddie Sahu OPERATOR TECHNICIAN.LAWN CARE SPECIALIST Work Phone: [facility] 01-01-2024 15:18-0500 Respiratory rate 16 /min Maddie Sahu OPERATOR TECHNICIAN.LAWN CARE SPECIALIST Work Phone: [facility] 11-07-2023 15:18-0400 Diastolic blood pressure 72 mm[Hg] Nelli Haley OPERATOR TECHNICIAN.[employer]ANDE[employer] STICKER Work Phone: [facility] 11-07-2023 15:18-0400 Systolic blood pressure 136 mm[Hg] Nelli Haley OPERATOR TECHNICIAN.[employer] STICKER Work Phone: [facility] 11-07-2023 14:57-0400 Body mass index (BMI) [Ratio] 25.86 kg/m2 Nelli Haley OPERATOR TECHNICIAN.[employer]DE[employer] STICKER Work Phone: [facility] 11-07-2023 14:57-0400 Body weight 63.1 kg Nelli Haley OPERATOR TECHNICIAN.[employer] STICKER Work Phone: [facility] 11-07-2023 14:57-0400 Heart rate 60 /min Nelli Haley OPERATOR TECHNICIAN.[employer] STICKER Work Phone: [facility] 11-07-2023 14:57-0400 SaO2% (BldA) [Mass fraction] 99 % Nelli Haley OPERATOR TECHNICIAN.[employer] ST[employer]ER Work Phone: [facility] 05-07-2023 11:27-0400 Diastolic blood pressure 58 mm[Hg] Karen Resendiz MD Work Phone: [facility] 05-07-2023 11:27-0400 Systolic blood pressure 138 mm[Hg] Karen Resendiz MD Work Phone: [facility] 11-02-2022 11:46-0400 Diastolic blood pressure 60 mm[Hg] Karen Resendiz MD Work Phone: [facility] 11-02-2022 11:46-0400 Systolic blood pressure 148 mm[Hg] Karen Resendiz MD Work Phone: [facility] 11-02-2022 10:46-0400 Body height 156.2 cm Karen Resendiz MD Work Phone: [facility] 11-02-2022 10:46-0400 Body temperature 98.01 [degF] Karen Resendiz MD Work Phone: [facility] 11-02-2022 10:46-0400 Body weight 62.6 kg Karen Resendiz MD Work Phone: [facility] 11-02-2022 10:46-0400 Heart rate 63 /min Karen Resendiz MD Work Phone: [facility] 11-02-2022 10:46-0400 Respiratory rate 12 /min Karen Resendiz MD Work Phone: [facility] 11-02-2022 10:46-0400 SaO2% (BldA) [Mass fraction] 98 % Karen Resendiz MD Work Phone: [facility] 01-15-2022 15:26-0500 Body weight 59.42 kg Karen Resendiz MD Work Phone: [facility] 01-15-2022 15:26-0500 Diastolic blood pressure 80 mm[Hg] Karen Resendiz MD Work Phone: [facility] 01-15-2022 15:26-0500 Heart rate 61 /min Karen Resendiz MD Work Phone: [facility] 01-15-2022 15:26-0500 SaO2% (BldA) [Mass fraction] 98 % Karen Resendiz MD Work Phone: [facility] 01-15-2022 15:26-0500 Systolic blood pressure 142 mm[Hg] Karen Resendiz MD Work Phone: [facility] Encounters Encounter Date Encounter Type Care Provider Facility Start: 09-28-2024 ambulatory Joanne Apple NP Facili ty:[facility] Start: 09-08-2024 End: 09-08-2024 ambulatory NELLI REYES Facility:[facility] Start: 09-08-2024 End: 09-08-2024 Patient encounter procedure Nelli Reyes OPERATOR TECHNICIAN.[employer] Work Phone: [facility] Comment on above: Grief reaction (Prim lisa Dx); Stage 3b chronic kidney disease (HCC); Unintentional weight loss; IFG (impaired fasting glucose); Recurrent major depressive disorder, in partial remission; Essential hypertension; Adjustment insomnia; Elevated TSH Start: 09-07-2024 End: 09-07-2024 Patient encounter procedure Joanne Apple DISASTER RESPONSE DIRECTOR-C -[facility] Work Phone: Start: 09-07-2024 End: 09-07-[address] Karen Resendiz MD Work Phone: -[facility] Start: 09-07-2024 End: 09-07-2024 ambulatory Joanne Apple NP Facility:[facility] Start: 06-30-2024 End: 06-30-2024 ambulatory KAREN RESENDIZ Facility:[facility] Start: 06-30-2024 End: 06-30-2024 Office outpatient visit 15 minutes Karen Resendiz MD Work Phone: [facility] Comment on above: Acute bronchitis, un specified organism (Primary Dx); Wheezing; Acute cough; Recent bereavement Start: 05-11-2024 End: 05-11-2024 ambulatory KAREN RESENDIZ Facility:[facility] Start: 05-11-2024 End: 05-11-2024 Patient encounter procedure Karen Resendiz MD Work Phone: [facility] Comment on above: Medicare annual well ness visit, subsequent (Primary Dx); Bilateral lower extremity edema; Generalized anxiety disorder; Recurrent major depressive disorder, in partial remission; Essential hypertension; Vitamin D deficiency; S/P angioplasty with stent; Coronary artery disease involving [place] coronary artery of [place] heart without angina pectoris; Fibromyalgia; Encounter for immunization; Encounter for long-term current use of medication; Pain in right hip; 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; Dermatitis, unspecified Start: 04-14-2024 End: 04-14-2024 ambulatory Tessie VELAZQUEZ Facility:[facility] Start: 03-26-2024 End: 03-26-2024 ambulatory Karen Resendiz Facility:[facility] Start: 03-15-2024 End: 03-16-2024 Refill Karen Resendiz MD Work Phone: [facility] Comment on above: Refill Request Start: 03-12-2024 End: 03-12-2024 Subsequent hospital visit by physician Frandy [facility] Work Phone: Radiology Comment on above: Acute cough [R05.1] Start: 03-12-2024 End: 03-12-2024 ambulatory Karen Resendiz MD Work Phone: [facility] Comment on above: Chest Pain Start: 03-12-2024 End: 03-12-2024 Office outpatient visit 25 minutes Alexei Skelton MD Work Phone: [facility] Comment on above: Acute cough (Primary Dx); Acute non-recurrent sinusitis, unspecified location; Essential hypertension; History of ST elevation myocardial infarction (STEMI); Coronary artery disease involving [place] coronary artery of [place] heart with angina pectoris (HCC); S/P angioplasty with stent Start: 02-20-2024 End: 02-20-2024 ambulatory Karen Resendiz Facility:[facility] Start: 02-02-2024 End: 02-02-2024 ambulatory Korina Billy RN Work Phone: [facility] Start: 02-02-2024 End: 02-02-2024 Telephone follow-up Korina Billy RN Work Phone: [facility] Staff [facility] Comment on above: Transition Of Care ( Follow up day 14) Weekly phone contact (Recurring) for Transitional Care Management Start: 01-27-2024 End: 01-27-2024 Transitional care manage srvc 7 day discharge Karen Resendiz MD Work Phone: [facility] Comment on above: Essential hypertensi on (Primary Dx); Coronary artery disease involving [place] coronary artery of [place] heart without angina pectoris; S/P angioplasty with stent; HYPERCHOLESTEROLEMIA; Atopic dermatitis, unspecified type; Fibromyalgia; Gastro-esophageal reflux disease without esophagitis Start: 01-27-2024 End: 01-27-2024 ambulatory KAREN RESENDIZ Facility:[facility] Start: 01-26-2024 End: 01-26-2024 ambulatory Hermila Gonsalves RN Field Staff Management Comment on above: ACM LUCIAN RN ( No action needed.) Start: 01-25-2024 End: 01-26-2024 Evaluation and management of inpatient DR GERSON LY MD [facility] Start: 01-24-2024 End: 01-25-2024 Emergency department patient visit Karen Resendiz Facility:[facility] Start: 01-23-2024 End: 01-23-2024 Telephone encounter Karen Resendiz MD Work Phone: [facility] Comment on above: Patient Question Start: 01-21-2024 End: 01-21-2024 Patient Outreach Korina Billy RN Work Phone: Field Staff Management Comment on above: Transition Of Care ( Hospital discharge [facility] 01/19/2024 - Initial outreach/) Initial phone contact for Transitional Care Management Start: 01-18-2024 End: 01-20-2024 Evaluation and management of inpatient RODRIGO HAYES MD [facility] Start: 01-17-2024 End: 01-18-2024 ambulatory Cristina Tellez RN NURSE AUDITING CODER Comment on above: Headache; High blood pressure Encounter for medica l assessment (Primary Dx) Start: 01-17-2024 End: 01-17-2024 Patient encounter status Sheila Frank MD Work Phone: [facility] Work Phone: Start: 01-17-2024 End: 01-17-2024 Telemedicine consultation with patient Sheila Frank MD Work Phone: [facility] Start: 01-02-2024 End: 01-02-2024 Telephone encounter Karen Resendiz MD Work Phone: [facility] Comment on above: Insurance Authorizat ion Start: 01-01-2024 End: 01-01-[address] [facility] Facility:[facility] Start: 01-01-2024 End: 01-01-2024 Office outpatient visit 25 minutes Maddie Sahu OPERATOR TECHNICIAN.LAWN CARE SPECIALIST Work Phone: [facility] Comment on above: Essential hypertensi on (Primary Dx) Start: 12-31-2023 End: 01-01-2024 ambulatory Karen Resendiz MD Work Phone: [facility] Comment on above: Blood Pressure Refill Request Start: 11-10-2023 End: 11-10-2023 Telephone encounter Nelli Reyes APRN.CNP Work Phone: [facility] Comment on above: Results Start: 11-07-2023 End: 11-07-2023 ambulatory KAREN RESENDIZ Facility:[facility] Start: 11-07-2023 End: 11-07-2023 Patient encounter procedure Nelli Reyes APRN.[employer] Work Phone: [facility] Comment on above: Vitamin D deficiency (Primary Dx); Other insomnia; Eczema, unspecified type; Essential hypertension; Recurrent major depressive disorder, in partial remission (HCC) Start: 08-15-2023 Refill Karen roldan MD Work Phone: [facility] Comment on above: Refill Request Start: 05-07-2023 End: 05-07-2023 Office outpatient visit 25 minutes Karen Resendiz MD Work Phone: [facility] Comment on above: Essential hypertensi on (Primary Dx); Dermatitis; Recurrent major depressive disorder, in partial remission (HCC); Encounter for immunization; Encounter for long-term current use of medication Start: 12-05-2022 Refill Karen roldan MD Work Phone: [address] [place] [address] Comment on above: Refill Request Start: 11-02-2022 End: 11-02-2022 Office outpatient visit 40 minutes Karen Resendiz MD Work Phone: [facility] Comment on above: Pruritic dermatitis (Primary Dx); Essential hypertension; Generalized anxiety disorder; Recurrent major depressive disorder, in partial remission (HCC); Vaginal burning; Vaginal atrophy; Need for influenza vaccination; Vitamin D deficiency Start: 10-22-2022 ambulatory Veronika Siddiqi MA [facility] Comment on above: Population Health Na vigation Outreach ([employer] Care Gaps ) Start: 08-21-2022 ambulatory Soco Cummings [facility] Comment on above: Population Health Na vigation Outreach ([employer] care gaps) Start: 02-05-2022 Telephone encounter Karen kennedy MD Work Phone: [facility] Comment on above: rash persisting Start: 01-17-2022 Telephone encounter Karen kennedy MD Work Phone: [facility] Comment on above: Medication Problem Start: 01-15-2022 End: 01-15-2022 Office outpatient visit 40 minutes Karen Resendiz MD Work Phone: [facility] Comment on above: Irritable bowel synd raulito with diarrhea (Primary Dx); S/P cholecystectomy; Dermatitis; Chronic vaginitis; Recurrent major depressive disorder, in partial remission (HCC); Essential hypertension; Generalized anxiety disorder Start: 01-04-2022 Refill Kecia TAYLOR RN.[facility] Work Phone: OB/Gynecology Comment on above: Refill Request Start: 12-20-2021 Refill Kecia TAYLOR RN.[facility] Work Phone: OB/Gynecology Comment on above: Refill Request Start: 12-19-2021 Telephone encounter Kecia yousif APRN.[employer] Work Phone: OB/Gynecology Comment on above: Patient Update Start: 12-13-2021 Telephone encounter Kecia yousif APRN.[employer] Work Phone: OB/Gynecology Comment on above: Patient Update Start: 12-06-2021 Refill Kecia TAYLOR RN.[facility] Work Phone: OB/Gynecology Comment on above: Refill Request Start: 11-29-2021 Telephone encounter Kecia yousif APRN.[employer] Work Phone: OB/Gynecology Comment on above: Refill Request Start: 07-18-2021 End: 07-19-2021 Office outpatient visit 25 minutes Karen Resendiz MD Work Phone: [facility] Comment on above: Fibromyalgia (Primar y Dx); Generalized anxiety disorder; Vitamin D deficiency; Fecal smearing; Recurrent major depressive disorder, in partial remission (HCC); Essential hypertension; Mixed hyperlipidemia Start: 06-19-2021 Refill Karen roldan MD Work Phone: [facility] Comment on above: Refill Request Procedures Date Procedure Procedure Detail Performing Clinician Start: 03-12-2024 Radiologic exam ches t 2 views Alexei Skelton MD Work Phone: History of cholecystectomy S/P cholecystectomy Karen Resendiz MD Work Phone: History of placement of stent for coronary artery disease History of coronary artery stent placement Dr. Karen Resendiz MD Work Phone: Comment on above: 01/19/2024 bifurcatio n stenting to the OM/LCX lesion, PCI to the proximal LAD History of placement of stent for coronary artery disease History of coronary artery stent placement Joanne Apple DISASTER RESPONSE DIRECTORAdityaC Plan of Treatment Date Care Activity Detail Author Start: 11-06-2026 Diabetes Screening Diabetes Screening [facility] Start: 11-04-2025 Diabetes Screening Diabetes Screening [facility] Start: 05-20-2025 End: 05-20-2025 Patient encounter procedure 05/20/2025 3:40 PM EDT Office Visit [facility] [address] [place], [place] [id number] Karen Resendiz MD [address] [place], [place] [id number] medicare wellness [facility] Comment on above: medicare wellness Start: 05-11-2025 Covid-19 Vaccine () Covid-19 Vaccine () [facility] Comment on above: Postponed from 10/12/2023 (Declined at t his time) Start: 01-14-2025 DIABETES SCREEN DIABETES SCREEN [facility] Start: 01-14-2025 Diabetes Screening Diabetes Screening [facility] Start: 11-19-2024 End: 11-19-2024 Patient encounter procedure 11/19/2024 3:00 PM EDT Office Visit [facility] [address] [facility] [place], [place] [phone] Karen Resendiz MD [address] [facility] [place], [place] [phone] 6 month f/up [facility] Comment on above: 6 month f/up Start: 11-06-2024 Hepatitis B surface antibody level LDL Cholesterol [facility] Start: 11-03-2024 End: 02-02-2025 Hemoglobin A1c in Blood HEMOGLOBIN A1C Lab Routine IFG (impaired fasting glucose) Expected: 11/03/2024, Expires: 02/02/2025 [facility] Comment on above: Expected: 11/03/2024, Expires: Start: 11-03-2024 End: 02-02-2025 Thyrotropin [Units/volume] in Serum or Plasma THYROID STIMULATING HORMONE Lab Routine Elevated TSH Expected: 11/03/2024, Expires: 02/02/2025 [facility] Work Phone: Comment on above: Expected: 11/03/2024, Expires: Start: 11-03-2024 End: 02-02-2025 Thyroxine (T4) free [Mass/volume] in Serum or Plasma T4 FREE/FREE THYROXINE Lab Routine Elevated TSH Expected: 11/03/2024, Expires: 02/02/2025 [facility] Comment on above: Expected: 11/03/2024, Expires: Start: 11-03-2024 End: 02-02-2025 Triiodothyronine (T3) Free [Mass/volume] in Serum or Plasma T3, FREE Lab Routine Elevated TSH Expected: 11/03/2024, Expires: 02/02/2025 [facility] Comment on above: Expected: 11/03/2024, Expires: Start: 10-11-2024 End: 01-10-2025 25-hydroxyvitamin D3 [Mass/volume] in Serum or Plasma VITAMIN D 25 HYDROXY Lab Routine Vitamin D deficiency Expected: 10/11/2024 (Approximate), Expires: 01/10/2025 [facility] Work Phone: Comment on above: Expected: 10/11/2024 (Approximate), Expi res: 01/10/2025 Start: 10-11-2024 End: 01-10-2025 CBC panel - Blood by Automated count COMPLETE BLOOD COUNT Lab Routine Essential hypertension Encounter for long-term current use of medication Expected: 10/11/2024 (Approximate), Expires: 01/10/2025 [facility] Comment on above: Expected: 10/11/2024 (Approximate), Expi res: 01/10/2025 Start: 10-11-2024 End: 01-10-2025 Comprehensive metabolic 2000 panel - Serum or Plasma COMPREHENSIVE METABOLIC PANEL Lab Routine Essential hypertension Encounter for long-term current use of medication Expected: 10/11/2024 (Approximate), Expires: 01/10/2025 [facility] Comment on above: Expected: 10/11/2024 (Approximate), Expi res: 01/10/2025 Start: 10-11-2024 Influenza vaccination Influenza Vaccine (#1) [facility] Start: 10-11-2024 End: 01-10-2025 Lipid 1996 panel - Serum or Plasma LIPID PANEL, FASTING Lab Routine Essential hypertension Encounter for long-term current use of medication Expected: 10/11/2024 (Approximate), Expires: 01/10/2025 [facility] Comment on above: Expected: 10/11/2024 (Approximate), Expi res: 01/10/2025 Start: 10-11-2024 End: 01-10-2025 Magnesium [Mass/volume] in Serum or Plasma MAGNESIUM Lab Routine Encounter for long-term current use of medication Expected: 10/11/2024 (Approximate), Expires: 01/10/2025 [facility] Comment on above: Expected: 10/11/2024 (Approximate), Expi res: 01/10/2025 Start: 05-11-2024 End: 05-11-2024 Patient encounter procedure 05/11/2024 1:20 PM EDT Office Visit [facility] [address] [facility] [place] [id number] Karen Resendiz MD [address] [place], [place] [phone] Yearly [facility] Comment on above: Yearly Start: 02-11-2024 Advance Directive Discussion Advance Directive Discussion [facility] Start: 01-29-2024 End: 01-29-2024 Patient encounter procedure 01/29/2024 3:00 PM EST Office Visit [facility] [address] [place] [address] Maddie Sahu, OPERATOR TECHNICIAN.LAWN CARE SPECIALIST [address] [place] [address] blood pressure [facility] Comment on above: blood pressure Start: 01-27-2024 End: 01-27-2024 Patient encounter procedure 01/27/2024 11:00 AM EST Office Visit [facility] [address] [place] [address] Karen Resendiz MD [address] [place] [address] hospital f/u [facility] Comment on above: hospital f/u Start: 01-01-2024 End: 01-01-2024 Patient encounter procedure 01/01/2024 3:00 PM EST Office Visit [facility] [address] [place] [address] Maddie Sahu, OPERATOR TECHNICIAN.LAWN CARE SPECIALIST [address] [place] [address] elevated blood pressure [facility] Comment on above: elevated blood pressure Start: 12-02-2023 DIABETES SCREEN DIABETES SCREEN [facility] Start: 11-07-2023 End: 11-07-2023 Patient encounter procedure 11/07/2023 3:00 PM EDT Office Visit [facility] [address] [place] [address] Nelli Reyes, OPERATOR TECHNICIAN.[employer] STICKER [address] [place] [address] 6 month follow up [facility] Comment on above: 6 month follow up Start: 11-07-2023 End: 02-06-2024 25-hydroxyvitamin D3 [Mass/volume] in Serum or Plasma [facility] Work Phone: Comment on above: Expected: 11/07/2023, Expires: Start: 10-12-2023 Covid-19 Vaccine ( season) Covid-19 Vaccine ( season) [facility] Start: 10-12-2023 Influenza vaccination Influ[facility] (#[facility] Start: 10-07-2023 End: 01-06-2024 CBC panel - Blood by Automated count CBC Lab Routine Essential hypertension Encounter for long-term current use of medication Expected: 10/07/2023 (Approximate), Expires: 01/06/2024 [facility] Comment on above: Expected: 10/07/2023 (Approximate), Expi res: 01/06/2024 Start: 10-07-2023 End: 01-06-2024 Comprehensive metabolic 2000 panel - Serum or Plasma COMP METABOLIC PANEL Lab Routine Essential hypertension Encounter for long-term current use of medication Expected: 10/07/2023 (Approximate), Expires: 01/06/2024 [facility] Work Phone: Comment on above: Expected: 10/07/2023 (Approximate), Expi res: 01/06/2024 Start: 10-07-2023 End: 01-06-2024 Lipid 1996 panel - Serum or Plasma LIPID PANEL BASIC Lab Routine Essential hypertension Encounter for long-term current use of medication Expected: 10/07/2023 (Approximate), Expires: 01/06/2024 [facility] Comment on above: Expected: 10/07/2023 (Approximate), Expi res: 01/06/2024 Start: 10-07-2023 End: 01-06-2024 Magnesium [Mass/volume] in Serum or Plasma MAGNESIUM BLD Lab Routine Encounter for long-term current use of medication Expected: 10/07/2023 (Approximate), Expires: 01/06/2024 [facility] Comment on above: Expected: 10/07/2023 (Approximate), Expi res: 01/06/2024 Start: 02-10-2023 Advance Directive Discussion Advance Directive Discussion [facility] Start: 01-15-2023 SHINGRIX VACCINE (1 of 2) SHINGRIX VACCINE (1 of 2) [facility] Comment on above: Postponed from 1990 (Declined at t his time) Start: 01-15-2023 Urine microalbumin profile [facility] Comment on above: Postponed from 06/22/1959 (Declined at t his time) Start: 10-11-2022 Covid-19 Vaccine ( season) Covid-19 Vaccine ( season) [facility] Start: 10-11-2022 Influenza vaccination [facility] Start: 04-13-2022 COVID-19 VACCINE (5 - Moderna series) COVID-19 VACCINE (5 - Moderna series) [facility] Start: 02-10-2022 ADVANCE DIRECTIVE DISCUSSION ADVANCE DIRECTIVE DISCUSSION [facility] Start: 01-17-2022 End: 03-19-2022 25-hydroxyvitamin D3 [Mass/volume] in Serum or Plasma VITAMIN D 25 HYDROXY Lab Routine Vitamin D deficiency Expected: 01/17/2022 (Approximate), Expires: 03/19/2022 [facility] Work Phone: Comment on above: Expected: 01/17/2022 (Approximate), Expi res: 03/19/2022 Start: 01-17-2022 End: 03-19-2022 CBC panel - Blood by Automated count CBC Lab Routine Essential hypertension Expected: 01/17/2022 (Approximate), Expires: 03/19/2022 [facility] Work Phone: Comment on above: Expected: 01/17/2022 (Approximate), Expi res: 03/19/2022 Start: 01-17-2022 End: 03-19-2022 Comprehensive metabolic 2000 panel - Serum or Plasma COMP METABOLIC PANEL Lab Routine Essential hypertension Expected: 01/17/2022 (Approximate), Expires: 03/19/2022 [facility] Work Phone: Comment on above: Expected: 01/17/2022 (Approximate), Expi res: 03/19/2022 Start: 01-17-2022 End: 03-19-2022 Lipid 1996 panel - Serum or Plasma LIPID PANEL BASIC Lab Routine Essential hypertension Mixed hyperlipidemia Expected: 01/17/2022 (Approximate), Expires: 03/19/2022 [facility] Work Phone: Comment on above: Expected: 01/17/2022 (Approximate), Expi res: 03/19/2022 Start: 10-11-2021 Influenza vaccination INFLUENZA (#1) [facility] Start: 10-06-2021 ANNUAL PCP TEAM CHRONIC DISEASE VISIT ANNUAL PCP TEAM CHRONIC DISEASE VISIT [facility] Start: 10-06-2021 SHINGRIX VACCINE (1 of 2) SHINGRIX VACCINE (1 of 2) [facility] Comment on above: Postponed from 1990 (Declined at t his time) Start: 10-06-2021 Urine microalbumin profile DTAP,TDAP,TD (1 - Tdap) [facility] Comment on above: Postponed from 06/22/1959 (Declined at t his time) Start: 07-11-2021 End: 06-11-2022 CBC W Auto Differential panel - Blood CBC + DIFF Lab Routine Generalized anxiety disorder Recurrent major depressive disorder, in partial remission (HCC) Essential hypertension Expected: 07/11/2021 (Approximate), Expires: 06/11/2022 [facility] Work Phone: Comment on above: Expected: 07/11/2021 (Approximate), Expi res: 06/11/2022 Start: 07-11-2021 End: 06-11-2022 Comprehensive metabolic 2000 panel - Serum or Plasma COMP METABOLIC PANEL Lab Routine Generalized anxiety disorder Recurrent major depressive disorder, in partial remission (HCC) Essential hypertension HYPERCHOLESTEROLEMIA Expected: 07/11/2021 (Approximate), Expires: 06/11/2022 [facility] Work Phone: Comment on above: Expected: 07/11/2021 (Approximate), Expi res: 06/11/2022 Start: 07-11-2021 End: 06-11-2022 LIPID PANEL BASIC LIPID PANEL BASIC Lab Routine HYPERCHOLESTEROLEMIA Expected: 07/11/2021 (Approximate), Expires: 06/11/2022 [facility] Work Phone: Comment on above: Expected: 07/11/2021 (Approximate), Expi res: 06/11/2022 Start: 04-18-2021 COVID-19 VACCINE (4 - Booster for Moderna series) COVID-19 VACCINE (4 - Booster for Moderna series) [facility] Start: 02-13-2021 COVID-19 VACCINE (4 - Booster for Moderna series) COVID-19 VACCINE (4 - Booster for Moderna series) [facility] Start: 02-10-2021 ADVANCE DIRECTIVE DISCUSSION ADVANCE DIRECTIVE DISCUSSION [facility] Start: 06-22-2015 RSV Vaccine (1 - 1-dose 75+ series) RSV Vaccine (1 - 1-dose 75+ series) [facility] Start: 2000 RSV Vaccine (1 - 1-dose 60+ series) RSV Vaccine (1 - 1-dose 60+ series) [facility] Start: 1990 SHINGRIX VACCINE (1 of 2) SHINGRIX VACCINE (1 of 2) [facility] Start: 06-22-1959 Urine microalbumin profile [facility] Start: 1958 BP CONTROLLED (<130/80) BP CONTROLLED (<130/80) [facility] in[facility] Basic metabolic 2008 panel with ionized calcium - Serum or Plasma [facility] CBC W Auto Different ial panel - Blood [facility] Natriuretic peptide. B prohormone N-Terminal [Mass/volume] in Serum or Plasma [facility] Thyroid stimulating hormone measurement [facility] Immunizations Immunization Date Immunization Notes Care Provider [facility] 01-29-2024 Seasonal trivalent influenza vaccine, adjuvanted, preservative free Korina Billy RN Work Phone: [facility] 01-29-2024 influenza virus vacc ine, unspecified formulation Nelli Reyes APRN.[employer] Work Phone: [facility] 01-20-2023 influenza (aIIV4) vaccine, age 65+ yr, quadrivalent, PF (FLUAD QUAD) Nelli Reyes APRN.[employer] Work Phone: [facility] 01-20-2023 influenza, injectabl e, quadrivalent, contains preservative Karen Resendiz MD Work Phone: [facility] 01-20-2023 influenza virus vacc ine, unspecified formulation Karen Resendiz MD Work Phone: [facility] 12-14-2021 COVID-19 booster vaccine, age 12+ yr, bivalent (PFIZER-BIONTBizware) Kecia Cardenas APRN.[employer] Work Phone: [facility] Work Phone: 11-21-2021 influenza (aIIV4) vaccine, age 65+ yr, quadrivalent, PF (FLUAD QUAD) Nelli Reyes OPERATOR TECHNICIAN.[employer] Work Phone: [facility] 11-21-2021 influenza, injectabl e, quadrivalent, contains preservative Kecia Cardenas OPERATOR TECHNICIAN.[employer] Work Phone: [facility] Work Phone: 11-21-2021 influenza virus vacc ine, unspecified formulation Veronika Nj Siddiqi [facility] 11-30-2020 influenza (aIIV4) vaccine, age 65+ yr, quadrivalent, PF (FLUAD QUAD) Nelli Reyes OPERATOR TECHNICIAN.[employer] Work Phone: [facility] 11-30-2020 influenza, high dose seasonal, preservative-free Karen Resendiz MD Work Phone: [facility] Work Phone: 04-07-2020 Covid (Moderna) Dr. Karen kennedy MD Work Phone: [facility] 03-10-2020 Covid (Moderna) Dr. Karen kennedy MD Work Phone: [facility] 10-29-2019 influenza, injectabl e, quadrivalent, preservative free Nelli Reyes OPERATOR TECHNICIAN.[employer] Work Phone: [facility] 10-29-2019 influenza, seasonal, injectable Karen Resendiz MD Work Phone: [facility] 10-29-2019 pneumococcal conjuga te vaccine, 13 valent Karen Resendiz MD Work Phone: [facility] 12-02-2018 influenza, high dose seasonal, preservative-free Karen Resendiz MD Work Phone: [facility] 11-26-2017 influenza, high dose seasonal, preservative-free Karen Resendiz MD Work Phone: [facility] 01-15-2017 influenza, seasonal, injectable, preservative free Karen Resendiz MD Work Phone: [facility] 12-14-2015 influenza, high dose seasonal, preservative-free Karen Resendiz MD Work Phone: [facility] 12-13-2014 pneumococcal conjuga te vaccine, 13 valent Karen Resendiz MD Work Phone: [facility] 11-12-2014 influenza, high dose seasonal, preservative-free Karen Resendiz MD Work Phone: [facility] 12-02-2013 influenza, seasonal, injectable Karen Resendiz MD Work Phone: [facility] 11-07-2010 influenza virus vacc ine, unspecified formulation Karen Resendiz MD Work Phone: [facility] 02-08-2009 novel influenza-H1N1 -09, preservative-free, injectable Nelli Reyes OPERATOR TECHNICIAN.[employer] Work Phone: [facility] 11-29-2008 influenza virus vacc ine, unspecified formulation Karen Resendiz MD Work Phone: [facility] Work Phone: 12-29-2007 influenza virus vacc ine, whole virus Karen Resendiz MD Work Phone: [facility] 12-23-2006 influenza virus vacc angelika, unspecified formulation Karen Resendiz MD Work Phone: [facility] Work Phone: 12-17-2005 influenza virus vacc ine, unspecified formulation Karen Resendiz MD Work Phone: [facility] 12-17-2005 pneumococcal polysaccharide vaccine, 23 valent Karen Resendiz MD Work Phone: [facility] 12-11-2004 influenza virus vacc ine, unspecified formulation Karen Resendiz MD Work Phone: [facility] Work Phone: Payers Date Payer Category Payer Medicare [id number] 2024 Self-pay 2020 Medicare HUMANA MEDICARE HU[employer]NA MEDICARE PPO [id number] 2020-Present [phone] [address] [place] [address] PPO [id number] 2020 Medicare HUMANA MEDICARE HU[employer]NA MEDICARE PPO [id number] 2020-Present [phone] [place] [address] PPO [id number] 2020 Medicare (Managed Care) [employer] EDICARE [id number] 2013 Private Health Insurance [id number] 1940 Unknown [id number] 1940 Unknown [id number] Unknown [id number] Unknown [id number] Unknown [id number] Unknown [id number] Unknown [id number] Unknown [id number] Unknown [id number] Unknown [id number] Unknown [id number] Unknown [id number] Social History Date Type Detail Facility Start: 05-31-2011 End: 02-20-2024 Tobacco smoking status NHIS Never smoked tobacco [facility] Start: 04-11-2021 End: 09-08-2024 Alcohol intake Current non-drinker of alcohol (finding) [facility] Start: 1940 Sex Assigned At Not on file [facility] Start: 07-08-2021 End: 07-18-2021 Exposure to SARS-CoV-2 (event) Not sure [facility] Start: 05-31-2011 Tobacco use and exposure Smokeless tobacco non-user [facility] Work Phone: Start: 09-26-2021 End: 07-22-2022 History of Social function [facility] Start: 09-26-2021 End: 07-22-2022 Tobacco use panel [facility] Adult Depression Screening Assessment 0 [facility] How often to you hav e a drink containing alcohol? Never [facility] Start: 08-23-2013 Alcohol Alcohol [facility] Start: 08-23-2013 Lives Lives [facility] Start: 08-23-2013 Tobacco Use Tobacco Use [facility] Start: 1940 Sex Assigned At Female [facility] Functional Status Date Assessment Result Facility 05-11-2024 Total score [AUDIT-C] 0 05/12/19 25 1:22 PM EDT Hermila Braxton LPN [facility] 01-26-2024 Functional Status Single level home [facility] 01-26-2024 Functional Status Enjoys reading and word searches (01/26/24) [facility] 01-26-2024 Functional Status [facility] 01-26-2024 Functional Status [facility] 01-26-2024 Functional Status Nurse Olga lunsford q2hrs Performed 3pm-3am [facility] 01-26-2024 Functional Status [facility] 01-25-2024 Functional Status [facility] 01-25-2024 Functional Status [facility] 01-25-2024 Functional Status [facility] 01-25-2024 Functional Status Skin moisturiz er, Shampoo cap, Shampoo/Body wash (no rinse) [facility] 01-25-2024 Functional Status [facility] 01-20-2024 Functional Status Identified as high risk, Non-Slip footwear, Room check performed [facility] 01-20-2024 Functional Status [facility] 01-20-2024 Functional Status [facility] 01-20-2024 Functional Status [facility] 01-19-2024 Functional Status [facility] 01-19-2024 Functional Status Single level home [facility] 01-19-2024 Functional Status NPO Status Maintained A [facility] 01-19-2024 Functional Status [facility] 01-19-2024 Functional Status Skin Care Prev entative Intervention(s) padded oxygen tubing [facility] 01-18-2024 Functional Status 100 [facility] 04-28-2018 Are you deaf, or do you have serious difficulty hearing No 04/28/2018 5:06 PM Karen Guerrero MD No [facility] 04-28-2018 Are you blind, or do you have serious difficulty seeing, even when wearing glasses No 04/28/2018 5:06 PM Karen Guerrero MD No [facility] 04-28-2018 Do you have serious difficulty walking or climbing stairs No 04/28/2018 5:06 PM Karen Guerrero MD [facility] 04-28-2018 Do you have difficul ty dressing or bathing No 04/28/2018 5:06 PM Karen Guerrero MD [facility] 04-28-2018 Because of a physica l, mental, or emotional condition, do you have difficulty doing errands alone such as visiting a physician's office or shopping No 04/28/2018 5:06 PM EDT Karen Resendiz MD No [facility] Mental Status Date Assessment Result Facility 01-26-2024 Mental Status Oriented x [facility] 01-25-2024 [facility] Status [facility] 01-25-2024 Mental Status [facility] 01-20-2024 Mental Status Oriented x 4 [facility] 01-20-2024 Mental Status [facility] 01-20-2024 Mental Status [facility] 04-28-2018 Because of a physica l, mental, or emotional condition, do you have serious difficulty concentrating, remembering, or making decisions No 04/28/2018 5:06 PM EDT Karen Resendiz MD No [facility] Clinical Notes 06-19-2021 to 09-08-2024 Patient InstructionsNelli Reyes APRN.CNP - 09/08/2024 2:25 PM EDT Note Date & Type Note Facility 09-08-2024 Instructions Nelli Reyes APRN.CNP - 09/08/2024 2:42 PM EDT Start drinking 1 protein shake (Boost) a day. Start trying to drink 4 bottles of water per day. Start taking Remeron (mirtazapine) every day around bedtime. Call [facility] and ask about counseling and their [facility] documented in this encounter [facility] 09-08-2024 Note HNO ID: [id number] Author: NELLI REYES APRN.CNP Service: ? Author Type: Nurse Practitioner Type: Progress Notes Filed: 09/08/2024 15:36 Note Text: SUBJECTIVE Kalina Rudd is a 84 year old female here today for a check up on her medical problems. Chief Complaint Patient presents with: Recheck: Follow up, review labs. depression HPI Kalina Rudd is a 84-year-old female, with a history of CA and recent bereavement, presenting with fatigue, weight loss, and depression. Kalina reports significant fatigue, weight loss, and depression following the recent of her , to whom she was for 66 years. She has lost 10 lbs since May and attributes this to decreased appetite and inadequate hydration. She has started drinking Boost nutritional shakes to improve her intake but expresses concern about gaining weight. She reports consuming 2-3 bottles of water daily and occasionally drinking soda with meals. She denies eating three meals a day, typically consuming two, and has recently added Boost shakes to her diet. Kalina has a history of CA in January, for which she had three stents placed. She reports not feeling well since the CA and has an upcoming echocardiogram scheduled for September 28. She also reports bubbly urine and wonders if it is related to her antihypertensive medications. She is currently on three antihypertensive medications. Kalina reports poor sleep, stating she does not sleep at night but sleeps during the day. She has altered her medication schedule to accommodate her sleep pattern, taking her first round of pills at 0400 if she is awake and the second round an hour and a half later. She reports that her business applications manager noted elevated thyroid levels and suggested that treatment might improve her energy levels. She also reports that her business applications manager noted signs of depression, anxiety, and dehydration. Kalina reports a history of anxiety and describes herself as a worrier. She has not sought counseling but mentions that her business applications manager recommended it. She has a son in [place] with whom she had a recent disagreement, leading to feelings of isolation. She has another son and a grandson locally, with whom she maintains regular contact. She expresses feelings of sadness and depression, stating, I'm so depressed, it's awful. Recording using [employer] software for draft documentation of the visit was discussed with the patient/authorized claims customer service representative; all questions welcomed and answered. Patient/authorized claims customer service representative agreed to proceed Her medications were reviewed today and her list is now up to date. Medications Current Outpatient Medications Medication Sig mirtazapine (REMERON) 15 mg tablet Take 1 tablet by mouth daily at bedtime. albuterol HFA (PROVENTIL HFA, VENTOLIN HFA) 90 mcg/actuation inhaler Inhale 2 puffs as instructed every 4 hours as needed for wheezing/shortness of breath. rosuvastatin (CRESTOR) 20 mg tablet Take 1 tablet by mouth daily at bedtime. clopidogrel (PLAVIX) 75 mg tablet Take 1 tablet by mouth once daily. isosorbide mononitrate ER (IMDUR) 30 mg 24 hr tablet Take 1 tablet by mouth once daily. Before a meal DULoxetine (CYMBALTA) 60 mg capsule Take 1 capsule by mouth once daily. amLODIPine (NORVASC) 10 mg tablet Take 1 tablet by mouth once daily. [facility]. gabapentin (NEURONTIN) 300 mg capsule Take 1 capsule by mouth three times a day. omeprazole (PRILOSEC) 40 mg capsule Take 1 capsule by mouth once daily. aspirin, enteric coated (ASPIRIN, ENTERIC COATED) 81 mg EC tablet Take 1 tablet by mouth every afternoon. losartan (COZAAR) 50 mg tablet Take 1 tablet by mouth once daily. metoprolol succinate ER (TOPROL XL) 50 mg 24 hr tablet Take 1 tablet by mouth once daily. crisaborole 2 % Apply to affected area two times a day. Apply a thin film to affected area(s) 2 times daily estradiol (ESTRACE) 0.01 % (0.1 mg/gram) vaginal cream Apply to urethral opening for atrophic vaginitis. Two to three times a week. [employer] [facility] probiotics--Yeast and Vaginal PH support probiotic. Probiotic blend. Takes 1 by mouth at bedtime dorzolamide HCl/PF (DORZOLAMIDE, PF,) 2 % drop Use 1 Drop in eyes three times daily. glycerin-min oil-polycarbophil (REPLENS) gel Uses Replens cream 3 times weekly COMPOUNDED PRESCRIPTION Massage therapy Dx: Fibromyalgia, Arthritis No current facility-administered medications for this visit. ALLERGIES Allergen Reactions Amitriptyline Other: See Comments Could not urinate Codeine chest pain Sulfa (Sulfonamide * Hives, Swelling, Itching Trazodone vivid dreams ACTIVE PROBLEM LIST Coronary Artery Disease Involving [place] Coronary Artery of [place] Heart With Angina Pectoris - 03/12/2024 S/P Angioplasty With Stent - 03/12/[address] Elevation Myocardial Infarction (Stemi) - 03/12/2024 Recurrent Major Depressive Disorder, in Part (more content not included)... [facility] 09-08-2024 History of Present illness Narrative SUBJECTIVE Kalina Rudd is a 84 year old female here today for a check up on her medical problems. Chief Complaint Patient presents with: Recheck: Follow up, review labs. depression HPI Kalina Rudd is a 84-year-old female, with a history of CA and recent bereavement, presenting with fatigue, weight loss, and depression. Kalina reports significant fatigue, weight loss, and depression following the recent of her , to whom she was for 66 years. She has lost 10 lbs since May and attributes this to decreased appetite and inadequate hydration. She has started drinking Boost nutritional shakes to improve her intake but expresses concern about gaining weight. She reports consuming 2-3 bottles of water daily and occasionally drinking soda with meals. She denies eating three meals a day, typically consuming two, and has recently added Boost shakes to her diet. Kalina has a history of CA in January, for which she had three stents placed. She reports not feeling well since the CA and has an upcoming echocardiogram scheduled for September 28. She also reports bubbly urine and wonders if it is related to her antihypertensive medications. She is currently on three antihypertensive medications. Kalina reports poor sleep, stating she does not sleep at night but sleeps during the day. She has altered her medication schedule to accommodate her sleep pattern, taking her first round of pills at 0400 if she is awake and the second round an hour and a half later. She reports that her business applications manager noted elevated thyroid levels and suggested that treatment might improve her energy levels. She also reports that her business applications manager noted signs of depression, anxiety, and dehydration. Kalina reports a history of anxiety and describes herself as a worrier. She has not sought counseling but mentions that her business applications manager recommended it. She has a son in [place] with whom she had a recent disagreement, leading to feelings of isolation. She has another son and a grandson locally, with whom she maintains regular contact. She expresses feelings of sadness and depression, stating, I'm so depressed, it's awful. Recording using [employer] software for draft documentation of the visit was discussed with the patient/authorized claims customer service representative; all questions welcomed and answered. Patient/authorized claims customer service representative agreed to proceed Her medications were reviewed today and her list is now up to date. Medications Current Outpatient Medications Medication Sig mirtazapine (REMERON) 15 mg tablet Take 1 tablet by mouth daily at bedtime. albuterol HFA (PROVENTIL HFA, VENTOLIN HFA) 90 mcg/actuation inhaler Inhale 2 puffs as instructed every 4 hours as needed for wheezing/shortness of breath. rosuvastatin (CRESTOR) 20 mg tablet Take 1 tablet by mouth daily at bedtime. clopidogrel (PLAVIX) 75 mg tablet Take 1 tablet by mouth once daily. isosorbide mononitrate ER (IMDUR) 30 mg 24 hr tablet Take 1 tablet by mouth once daily. Before a meal DULoxetine (CYMBALTA) 60 mg capsule Take 1 capsule by mouth once daily. amLODIPine (NORVASC) 10 mg tablet Take 1 tablet by mouth once daily. [facility]. gabapentin (NEURONTIN) 300 mg capsule Take 1 capsule by mouth three times a day. omeprazole (PRILOSEC) 40 mg capsule Take 1 capsule by mouth once daily. aspirin, enteric coated (ASPIRIN, ENTERIC COATED) 81 mg EC tablet Take 1 tablet by mouth every afternoon. losartan (COZAAR) 50 mg tablet Take 1 tablet by mouth once daily. metoprolol succinate ER (TOPROL XL) 50 mg 24 hr tablet Take 1 tablet by mouth once daily. crisaborole 2 % Apply to affected area two times a day. Apply a thin film to affected area(s) 2 times daily estradiol (ESTRACE) 0.01 % (0.1 mg/gram) vaginal cream Apply to urethral opening for atrophic vaginitis. Two to three times a week. Miscellaneous Medical [facility]--Yeast and Vaginal PH support probiotic. Probiotic blend. Takes 1 by mouth at bedtime dorzolamide HCl/PF (DORZOLAMIDE, PF,) 2 % drop Use 1 Drop in eyes three times daily. glycerin-min oil-polycarbophil (REPLENS) gel Uses Replens cream 3 times weekly COMPOUNDED PRESCRIPTION Massage therapy Dx: Fibromyalgia, Arthritis No current facility-administered medications for this visit. ALLERGIES Allergen Reactions Amitriptyline Other: See Comments Could not urinate Codeine chest pain Sulfa (Sulfonamide * Hives, Swelling, Itching Trazodone vivid dreams ACTIVE PROBLEM LIST Coronary Artery Disease Involving [place] Coronary Artery of [place] Heart With Angina Pectoris - 03/12/2024 S/P Angioplasty With Stent - 03/12/[address] Elevation Myocardial Infarction (Stemi) - 03/12/2024 Recurrent Major Depressive Disorder, in Partial Remission - 09/08/2017 Vitamin D Deficiency - 07/16/2016 Mixed Stress and Urge Urinary Incontinence - 07/13/2015 Lichen Sclerosus INSOMNIA, INTERMITTENT - 10/16/2004 HYPERCHOLESTEROLEMIA - 10/16/2004 Generalized Anxiety Disorder Comment: Anxiety, Generalized Essential Hypertension Osteopenia Generalized Osteoarthritis Fibromyalgia Social History Tobacco Use Smoking status: Never Smokeless tobacco: Never Substance Use Topics Alcohol use: No Drug use: No Review of Systems Respiratory: Negative. Cardiovascular: Negative. Psychiatric/Behavioral: Positive for dysphoric mood and sleep disturbance. The patient is nervous/anxious. OBJECTIVE BP 128/72 Pulse 68 Resp 16 Wt 129 lb 13.6 oz (58.9kg) SpO2 98% Physical Exam Vitals and nursing note reviewed. Constitutional: General: She is awake. She is not in acute distress. Appearance: Normal appearance. She is well-developed and well-groomed. She is not ill-appearing, toxic-appearing or diaphoretic. HENT: Head: Normocephalic. Right Ear: External ear normal. Left Ear: External ear normal. Nose: Nose normal. Eyes: General: Vision grossly intact. Conjunctiva/sclera: Conjunctivae normal. Pupils: Pupils are equal, round, and reactive to light. Neck: Vascular: No JVD. Trachea: Trachea normal. Cardiovascular: Rate and Rhythm: Normal rate and regular rhythm. Pulses: Normal pulses. Heart sounds: Normal heart sounds. No murmur heard. Pulmonary: Effort: Pulmonary effort is normal. No accessory muscle usage, prolonged expiration or respiratory distress. Breath sounds: Normal breath sounds. Musculoskeletal: Cervical back: Neck supple. Skin: General: Skin is warm and dry. Capillary Refill: Capillary refill takes less than 2 seconds. Neurological: General: No focal deficit present. Mental Status: She is alert and oriented to person, place, and time. Mental status is at baseline. Psychiatric: Attention and Perception: Attention and perception normal. Mood and Affect: Mood is anxious and depressed. Affect is tearful. Speech: Speech normal. Behavior: Behavior normal. Behavior is cooperative. Thought Content: Thought content normal. Cognition and Memory: Cognition and memory normal. Judgment: Judgment normal. ASSESSMENT/PLAN: 1. Grief reaction (F43.20) Recurrent major depressive disorder, in partial remission (F33.41) Adjustment insomnia (F51.02) Experiencing significant grief following the recent loss of her , to whom she was for 66 years. This has exacerbated her underlying depression and anxiety, and has also contributed to insomnia. Patient is not sleeping well at night, but does sleep some during the day. Current emotional state is impacting her overall well-being. - Initiated mirtazapine (Remeron) to be taken at bedtime to aid with sleep and improve mood. Discussed potential side effects, including increased appetite and drowsiness. - Provided information for grief counseling through [facility] in [facility]. - Follow-up scheduled for November 19 at 3:[address] Resendiz. 2. Stage 3b chronic kidney disease (HCC) (N18.32) Recent lab work indicates elevated kidney function tests, suggesting stress on the kidneys, likely due to dehydration. - Increase water intake to at least four bottles per day to improve hydration status. - Recheck kidney function tests before the next appointment. 3. Unintentional weight loss (R63.4) Has lost 10 pounds since May, likely due to stress and grief. Current dietary intake is insufficient. - Begin drinking one protein shake (Boost) daily to increase caloric and protein intake. - Monitor weight and nutritional status. 4. IFG (impaired fasting glucose) (R73.01) Recent lab work shows elevated blood glucose levels. - Monitor dietary intake, focusing on reducing high-sugar snacks. - Recheck blood glucose levels before the next appointment. 5. Essential hypertension (I10) Blood pressure is currently well-controlled on existing medication regimen. 6. Elevated TSH (R79.89) Recent lab work shows slightly elevated TSH levels, but not significantly out of range. - Recheck TSH levels before the next appointment. Portions of this note have been entered by ancillary staff. I have reviewed and when necessary edited, so that they are an adequate record of my encounter with this patient Please note that parts of this document were created using voice recognition software and therefore may contain grammatical errors. Patient verbalizes understanding of instructions from today's visit and in agreement with treatment plan. Questions answered. Agrees to call the office if questions, concerns of issues with acute symptoms not improving or if they worsen. See diagnoses and orders for additional plan(s). Allergies and medications were reviewed, list was updated, and refills given if needed. Past medical, surgical, social, and family history reviewed and updated as appropriate. Encouraged proper diet & exercise as well as compliance with taking medications. Age-appropriate health preventative measures were discussed. Return if symptoms worsen or fail to improve, for Keep next scheduled appointment.. Nelli Reyes APRN-DARREN documented in this encounter [facility] 09-07-2024 Evaluation note Diagnosis Onset Date Resolution Aortic regurgitation acute September 07, 2024 8:06am JAMIL (dyspnea on exertion) acute September 07, 2024 8:06am Fatigue acute September 07 8:06am History of coronary artery stent placement acute August 8:06am HTN (hypertension) chronic August 112024 8:06am [facility] Work Phone: [phone] 117-331105-21-2025 Instructions* Patient Instructions* Karen Resendiz MD - 06/30/2024 6:00 PM EDT - Prescription sent for an albuterol inhaler with spacer. Use 1 puff, wait 1 minute, then 1 more puff nightly to reduce coughing and anytime you have wheezing or shortness of breath, up to every 4 hours as needed. - Tessalon Perles (benzonatate) prescribed to help suppress your cough; take as directed. - If Tessalon Perles does not relieve your cough, you may use xkgn-xno-wyfgeyq options such as Robitussin, Mucinex, quercetin (HBP), or Delsym. - Only fill and start doxycycline 100 mg twice daily for 10 days if your cough and wheezing do not improve with the inhaler and cough treatments. - Continue routine follow-up with your business applications manager in October as planned. - Contact the office if your symptoms worsen or if you have any questions. documented in [facility] NoteHNO ID: [id number] Author: KAREN RESENDIZ MD Service: ? Author Type: Physician Type: Progress Notes Filed: 07/19/2024 01:01 Note Text: This note was created using [employer]. Subjective Kalina Rudd is a 84 year old female. Patient presents with: Cough: Since Friday. Lost 2 weeks ago. Kalina is a 84-year-old female, with a history of cardiac issues, presenting with a persistent cough and wheezing. Kalina reports onset of a cough and wheezing on Friday, following exposure to a sick contact. Symptoms are worse at night, causing difficulty sleeping. During the day, symptoms are less severe when she is sitting quietly, but she experiences dyspnea and increased coughing with ambulation. She denies fevers or chills, but notes episodes of diaphoresis and feeling cold. She is currently under the care of a business applications manager and reports stable cardiac status, with her next appointment scheduled for October. Kalina is also coping with the recent loss of her , to whom she was for 66 years. She expresses significant emotional distress, stating, I don't know how I'm going to live, but I have to. She has a support system of family and friends, many of whom are widows, and finds some solace in the fact that her did not suffer. She is planning to visit his resting place and is looking forward to spending time with her son, who is visiting this week. PAST MEDICAL HISTORY Diagnosis Date Dysthymic disorder Depression (non-psychotic) Essential hypertension, benign Generalized anxiety disorder Anxiety, Generalized Generalized osteoarthrosis, unspecified site Lichen sclerosus Myalgia and myositis, unspecified OSTEOPOROSIS NOS Osteoporosis, unspecified STEMI (ST elevation myocardial infarction) ([facility]) 01/19/2024 Current Outpatient Medications Medication Sig albuterol HFA (PROVENTIL HFA, VENTOLIN HFA) 90 mcg/actuation inhaler Inhale 2 puffs as instructed every 4 hours as needed for wheezing/shortness of breath. benzonatate (TESSALON PERLE) 100 mg capsule Take 1 capsule by mouth three times a day as needed for cough. rosuvastatin (CRESTOR) 20 mg tablet Take 1 tablet by mouth daily at bedtime. clopidogrel (PLAVIX) 75 mg tablet Take 1 tablet by mouth once daily. isosorbide mononitrate ER (IMDUR) 30 mg 24 hr tablet Take 1 tablet by mouth once daily. Before a meal DULoxetine (CYMBALTA) 60 mg capsule Take 1 capsule by mouth once daily. amLODIPine (NORVASC) 10 mg tablet Take 1 tablet by mouth once daily. [facility]. gabapentin (NEURONTIN) 300 mg capsule Take 1 capsule by mouth three times a day. omeprazole (PRILOSEC) 40 mg capsule Take 1 capsule by mouth once daily. aspirin, enteric coated (ASPIRIN, ENTERIC COATED) 81 mg EC tablet Take 1 tablet by mouth every afternoon. losartan (COZAAR) 50 mg tablet Take 1 tablet by mouth once daily. metoprolol succinate ER (TOPROL XL) 50 mg 24 hr tablet Take 1 tablet by mouth once daily. crisaborole 2 % Apply to affected area two times a day. Apply a thin film to affected area(s) 2 times daily estradiol (ESTRACE) 0.01 % (0.1 mg/gram) vaginal cream Apply to urethral opening for atrophic vaginitis. Two to three times a week. Miscellaneous Medical Supply [facility] probiotics--Yeast and Vaginal PH support probiotic. Probiotic blend. Takes 1 by mouth at bedtime dorzolamide HCl/PF (DORZOLAMIDE, PF,) 2 % drop Use 1 Drop in eyes three times daily. glycerin-min oil-polycarbophil (REPLENS) gel Uses Replens cream 3 times weekly COMPOUNDED PRESCRIPTION Massage therapy Dx: Fibromyalgia, Arthritis No current facility-administered medications for this visit. Review of Systems Objective BP 122/62 Pulse 74 Temp 36.8 ?C (98.2 ?F) (Tympanic) SpO2 97% Physical Exam Constitutional: Appearance: Normal appearance. HENT: Head: Normocephalic. Eyes: Conjunctiva/sclera: Conjunctivae normal. Cardiovascular: Rate and Rhythm: Normal rate and regular rhythm. Heart sounds: Normal heart sounds. Comments: Mild posterior ankle swelling, 1+ Pulmonary: Effort: Pulmonary effort is normal. Comments: Few scattered crackles and low pitched wheeze posteriorly Skin: General: Skin is warm and dry. Neurological: General: No focal deficit present. Mental Status: She is alert and oriented to person, place, and time. Psychiatric: Mood and Affect: Mood normal. Behavior: Behavior normal. Thought Content: Thought content normal. Judgment: Judgment normal. Assessment and Plan # Acute bronchitis, unspecified organism (J20.9) # Wheezing (R06.2) # Acute cough (R05.1) - Onset of symptoms began on Friday, with worsening cough and wheezing at night, leading to difficulty sleeping. No fevers or chills reported. Shortness of breath noted during ambulation, with significant coughing episodes. - Oxygen saturation levels are stable. - Prescribed Albuterol inhaler with spacer; instructed to administer 1 puff, (more content not included)...[facility]05-[facility] History of Present illness Narrative* Karen Resendiz MD - 06/30/2024 5:33 PM EDT This note was created using [employer]. Subjective Kalina Rudd is a 84 year old female. Patient presents with: Cough: Since Friday. Lost 2 weeks ago. Kalina is a 84-year-old female, with a history of cardiac issues, presenting with a persistent cough and wheezing. Kalina reports onset of a cough and wheezing on Friday, following exposure to a sick contact. Symptoms are worse at night, causing difficulty sleeping. During the day, symptoms are less severe when she is sitting quietly, but she experiences dyspnea and increased coughing with ambulation. She denies fevers or chills, but notes episodes of diaphoresis and feeling cold. She is currently under the care of a business applications manager and reports stable cardiac status, with her next appointment scheduled for October. Kalina is also coping with the recent loss of her , to whom she was for 66 years. She expresses significant emotional distress, stating, I don't know how I'm going to live, but I have to. She has a support system of family and friends, many of whom are widows, and finds some solace in the fact that her did not suffer. She is planning to visit his resting place and is looking forward to spending time with her son, who is visiting this week. PAST MEDICAL HISTORY Diagnosis Date Dysthymic disorder Depression (non-psychotic) Essential hypertension, benign Generalized anxiety disorder Anxiety, Generalized Generalized osteoarthrosis, unspecified site Lichen sclerosus Myalgia and myositis, unspecified OSTEOPOROSIS NOS Osteoporosis, unspecified STEMI (ST elevation myocardial infarction) ([facility]) 01/19/2024 Current Outpatient Medications Medication Sig albuterol HFA (PROVENTIL HFA, VENTOLIN HFA) 90 mcg/actuation inhaler Inhale 2 puffs as instructed every 4 hours as needed for wheezing/shortness of breath. benzonatate (TESSALON PERLE) 100 mg capsule Take 1 capsule by mouth three times a day as needed forcough. rosuvastatin (CRESTOR) 20 mg tablet Take 1 tablet by mouth daily at bedtime. clopidogrel (PLAVIX) 75 mg tablet Take 1 tablet by mouth once daily. isosorbide mononitrate ER (IMDUR) 30 mg 24 hr tablet Take 1 tablet by mouth once daily. Before a meal DULoxetine (CYMBALTA) 60 mg capsule Take 1 capsule by mouth once daily. amLODIPine (NORVASC) 10 mg tablet Take 1 tablet by mouth once daily. [facility]. gabapentin (NEURONTIN) 300 mg capsule Take 1 capsule by mouth three times a day. omeprazole (PRILOSEC) 40 mg capsule Take 1 capsule by mouth once daily. aspirin, enteric coated (ASPIRIN, ENTERIC COATED) 81 mg EC tablet Take 1 tablet by mouth every afternoon. losartan (COZAAR) 50 mg tablet Take 1 tablet by mouth once daily. metoprolol succinate ER (TOPROL XL) 50 mg 24 hr tablet Take 1 tablet by mouth once daily. crisaborole 2 % Apply to affected area two times a day. Apply a thin film to affected area(s) 2 times daily estradiol (ESTRACE) 0.01 % (0.1 mg/gram) vaginal cream Apply to urethral opening for atrophic vaginitis. Two to three times a week. Miscellaneous Medical Supply [facility] probiotics--Yeast and Vaginal PH support probiotic. Probiotic blend. Takes 1 by mouth at bedtime dorzolamide HCl/PF (DORZOLAMIDE, PF,) 2 % drop Use 1 Drop in eyes three times daily. glycerin-min oil-polycarbophil (REPLENS) gel Uses Replens cream 3 times weekly COMPOUNDED PRESCRIPTION Massage therapy Dx: Fibromyalgia, Arthritis No current facility-administered medications for this visit. Review of Systems Objective BP 122/62 Pulse 74 Temp 36.8 C (98.2 F) (Tympanic) SpO2 97% Physical Exam Constitutional: Appearance: Normal appearance. HENT: Head: Normocephalic. Eyes: Conjunctiva/sclera: Conjunctivae normal. Cardiovascular: Rate and Rhythm: Normal rate and regular rhythm. Heart sounds: Normal heart sounds. Comments: Mild posterior ankle swelling, 1+ Pulmonary: Effort: Pulmonary effort is normal. Comments: Few scattered crackles and low pitched wheeze posteriorly Skin: General: Skin is warm and dry. Neurological: General: No focal deficit present. Mental Status: She is alert and oriented to person, place, and time. Psychiatric: Mood and Affect: Mood normal. Behavior: Behavior normal. Thought Content: Thought content normal. Judgment: Judgment normal. Assessment and Plan # Acute bronchitis, unspecified organism (J20.9) # Wheezing (R06.2) # Acute cough (R05.1) - Onset of symptoms began on Friday, with worsening cough and wheezing at night, leading to difficulty sleeping. No fevers or chills reported. Shortness of breath noted during ambulation, with significant coughing episodes. - Oxygen saturation levels are stable. - Prescribed Albuterol inhaler with spacer; instructed to administer 1 puff, wait one minute, then administer a second puff. Use primarily at night to reduce coughing, and during the day if experiencing coughing, wheezing, or shortness of breath. Advised to take up to every 4 hours as needed. - Prescribed Tessalon Perles for cough management. - Discussed jxvp-lll-sguerfn options such as Robitussin, quercetin, HBP, Mucinex, and Delsym if Tessalon Perles are ineffective. - Prescribed Doxycycline 100 mg BID for 10 days; instructed to fill only if symptoms do not improvewith current treatment, as the presentation suggests a viral rather than bacterial infection. # Recent bereavement (Z63.4) - Patient is coping with the recent loss of her , to whom she was for 66 years. - Has a support system of family and friends, including other widows who have shared similar experiences. - Encouraged to take things one day at a time and to reach out for support as needed. Karen Resendiz MD Recording using [employer] software for draft documentation of the visit was discussed with the patient/authorized claims customer service representative; all questions welcomed and answered. Patient/authorized claims customer service representative agreed to proceed documented in this encounterGrand Lake [facility] NoteHNO ID: [id number] Author: KAREN RESENDIZ MD Service: ? Author Type: Physician Type: Progress Notes Filed: 05/11/2024 14:34 Note Text: This note was created using [employer]. Subjective Kalina Rudd is a 83 year old female. Review of Systems Objective BP 122/58 Pulse 80 Resp 16 Ht 153 cm (5' 0.24) Wt 63.5 kg (139 lb 15.9 oz) BMI 27.13 kg/m? Physical Exam Vitals reviewed. Constitutional: Appearance: Normal appearance. She is well-developed. HENT: Head: Normocephalic and atraumatic. Right Ear: External ear normal. There is impacted cerumen. Left Ear: Tympanic membrane, ear canal and external ear normal. Nose: Nose normal. Mouth/Throat: Mouth: Mucous membranes are moist. Eyes: Conjunctiva/sclera: Conjunctivae normal. Pupils: Pupils are equal, round, and reactive to light. Neck: Thyroid: No thyromegaly. Vascular: No carotid bruit. Cardiovascular: Rate and Rhythm: Normal rate and regular rhythm. Pulses: Normal pulses. Heart sounds: Normal heart sounds. No murmur heard. No friction rub. No gallop. Pulmonary: Effort: Pulmonary effort is normal. Breath sounds: Normal breath sounds. Abdominal: General: Bowel sounds are normal. There is no distension. Palpations: Abdomen is soft. There is no mass. Tenderness: There is no abdominal tenderness. Musculoskeletal: General: No deformity. Normal range of motion. Right lower le+ Pitting Edema present. Left lower le+ Pitting Edema present. Lymphadenopathy: Cervical: No cervical adenopathy. Skin: General: Skin is warm and dry. Coloration: Skin is not jaundiced or pale. Findings: No rash. Neurological: General: No focal deficit present. Mental Status: She is alert and oriented to person, place, and time. Cranial Nerves: No cranial nerve deficit. Sensory: No sensory deficit. Motor: No abnormal muscle tone. Coordination: Coordination normal. Deep Tendon Reflexes: Reflexes normal. Psychiatric: Attention and Perception: Attention and perception normal. Mood and Affect: Mood and affect normal. Speech: Speech normal. Behavior: Behavior normal. Thought Content: Thought content normal. Judgment: Judgment normal. Assessment and PlanGrand [facility] History of Present illness Narrative* Karen Resendiz MD - 05/11/2024 2:19 PM EDT This note was created using [employer]. Subjective Klaina Rudd is a 83 year old female. Review of Systems Objective BP 122/58 Pulse 80 Resp 16 Ht 153 cm (5' 0.24) Wt 63.5 kg (139 lb 15.9 oz) BMI 27.13 kg/m Physical Exam Vitals reviewed. Constitutional: Appearance: Normal appearance. She is well-developed. HENT: Head: Normocephalic and atraumatic. Right Ear: External ear normal. There is impacted cerumen. Left Ear: Tympanic membrane, ear canal and external ear normal. Nose: Nose normal. Mouth/Throat: Mouth: Mucous membranes are moist. Eyes: Conjunctiva/sclera: Conjunctivae normal. Pupils: Pupils are equal, round, and reactive to light. Neck: Thyroid: No thyromegaly. Vascular: No carotid bruit. Cardiovascular: Rate and Rhythm: Normal rate and regular rhythm. Pulses: Normal pulses. Heart sounds: Normal heart sounds. No murmur heard. No friction rub. No gallop. Pulmonary: Effort: Pulmonary effort is normal. Breath sounds: Normal breath sounds. Abdominal: General: Bowel sounds are normal. There is no distension. Palpations: Abdomen is soft. There is no mass. Tenderness: There is no abdominal tenderness. Musculoskeletal: General: No deformity. Normal range of motion. Right lower le+ Pitting Edema present. Left lower le+ Pitting Edema present. Lymphadenopathy: Cervical: No cervical adenopathy. Skin: General: Skin is warm and dry. Coloration: Skin is not jaundiced or pale. Findings: No rash. Neurological: General: No focal deficit present. Mental Status: She is alert and oriented to person, place, and time. Cranial Nerves: No cranial nerve deficit. Sensory: No sensory deficit. Motor: No abnormal muscle tone. Coordination: Coordination normal. Deep Tendon Reflexes: Reflexes normal. Psychiatric: Attention and Perception: Attention and perception normal. Mood and Affect: Mood and affect normal. Speech: Speech normal. Behavior: Behavior normal. Thought Content: Thought content normal. Judgment: Judgment normal. Assessment and Plan * Karen Resendiz MD - 05/11/2024 1:26 PM EDT Images from the original note were not included. Kalina Rudd is a 83 year old female here for a Medicare wellness visit. Medicare Health Risk Assessment General Health Good Exercise: Minutes/Day 30 min Exercise: Days/Week 7 days Alcohol: Daily Use Never Alcohol: Drinks/Day Patient does not drink Alcohol: 6 or more drinks Never Feel off balance Yes--due to anterior hip pain Concerns: Teeth/Dentures No Concerns: Sexual function No Troubled by feelings Anxious Frequency: Eating healthy diet More than half the days ADLs requiring help None of the above Safety precautions in home/vehicle Yes Smoke, vape, chews tobacco No Difficulty hearing Yes Difficulty seeing No Current Providers Specialists: I have reviewed specialist-related care of the patient in the medical record. Outside specialists seen: [facility] Medical/Family history review Reviewed and updated problem list, medical/surgical/family/social history, medications, and allergies. Opioid use review Opioid Medications (last 90 days) No data to display Anxiety/Depression screening Recommendation: no further intervention at this time, continuing current treatment plan, and medication management Cognitive screening Mini Cog Score: 2 Cognitive screening reviewed and Recommended referral for further evaluation (score 0-2). Functional Observation Was the patient's Timed Up & Go test unsteady or >= 12 seconds? No though antalgic gait due to right anterior medial hip pain Advance Care Planning Surrogate decision maker and/or advance care plan documented Measurements BP 122/58 Pulse 80 Resp 16 Ht 153 cm (5' 0.24) Wt 63.5 kg (139 lb 15.9 oz) BMI 27.13 kg/m Vision Screening: Follows with optometry/ophthalmology Assessment/Plan Medicare annual wellness visit, subsequent (Z00.00) - Counseled on healthy diet and regular exercise - Fall avoidance information provided - Personalized prevention plan provided wellness Additional Concerns The following concerns were also discussed with the patient: The patient consented to the use of ambient [employer] software for draft documentation of the visit consistent with [facility] s Notice of Privacy Practices. Kalina is a 83-year-old female with a history of CA, HTN, and eczema, presenting for a Medicare Annual Wellness Visit. Kalina reports right hip pain that occurs when standing up and walking, but is alleviated by straightening the leg before walking. The pain is located in the anterior groin and buttocks. 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 She finds relief by leaning on a shopping cart while walking. She denies any previous x-rays of her back. She also reports bilateral lower extremity edema, which she attributes to an increased dose of amlodipine from 5 mg to 10 mg. She notes that the edema is less pronounced in the morning but worsens throughout the day. She has been using compression stockings, but finds them ineffective and uncomfortable. She denies any recent chest pain, but experiences dyspnea with excessive housework. She is currently taking 10 mg of amlodipine and has not yet contacted her business applications manager about reducing the dose. She also reports eczema, which she has been treating with tallow, but notes that it is not fully effective. She denies using lotion regularly. She is currently taking clopidogrel, rosuvastatin, isosorbide, duloxetine, metoprolol, gabapentin, losartan, and omeprazole. She has reduced her gabapentin dose from 2 pills TID to 1 pill TID. She denies any issues with constipation or diarrhea, but notes that she sometimes experiences diarrhea after eating salads at restaurants. She also reports difficulty sleeping at night, but sleeps well during the day. She denies any recent falls. She has not yet completed her advance directives, but has designated her as her healthcare proxy. She has not seen her dentist since her CA, but plans to schedule an appointment. She also plans to start walking outside as the weather improves. Constitutional: (+) sleep disturbance Cardiovascular: (-) chest pain, (+) leg swelling Respiratory: (+) shortness of breath with exertion Gastrointestinal: (+) diarrhea after restaurant salads, (-) constipation Musculoskeletal: (+) hip pain, (+) low back pain, (+) leg giving out Skin: (+) dryness, (+) rash on legs BP 122/58 Pulse 80 Resp 16 Ht 153 cm (5' 0.24) Wt 63.5 kg (139 lb 15.9 oz) BMI 27.13 kg/m Constitutional: General: No acute distress. Appearance: Normal appearance, well-developed. HENT: Head: Normocephalic. Right Ear: Tympanic membrane, ear canal and external ear normal. Some wax noted. Left Ear: Tympanic membrane, ear canal and external ear normal. Nose: Nose normal. No rhinorrhea. Mouth/Throat: Mouth: Mucous membranes are moist. Pharynx: Oropharynx is clear. No posterior oropharyngeal erythema. Eyes: Conjunctiva/sclera: Conjunctivae normal. Neck: Thyroid: No thyromegaly. Cardiovascular: Rate and Rhythm: Normal rate and regular rhythm. Heart sounds: Normal heart sounds. No murmur heard. Pulmonary: Effort: Pulmonary effort is normal. Breath sounds: Normal breath sounds. No wheezing or rales. Abdominal: General: Bowel sounds are normal. There is no distension. Palpations: Abdomen is soft. Tenderness: There is no abdominal tenderness. Musculoskeletal: Cervical back: Neck supple. Lower extremities: Mild swelling noted. Pain in the right hip area, particularly in the anterior groin and buttocks, likely muscular in nature. Lymphadenopathy: Cervical: No cervical adenopathy. Skin: General: Skin is warm and dry. Findings: No erythema or rash. Neurological: General: No focal deficit present. Mental Status: Alert. Psychiatric: Mood and Affect: Mood normal. Thought Content: Thought content normal. # Medicare annual wellness visit, subsequent (Z00.00) - Completed comprehensive review of systems and physical examination. - Discussed current medications, health maintenance, and advanced directives. - Scheduled follow-up in 6 months. # Bilateral lower extremity edema (R60.0) - Noted significant edema, likely secondary to amlodipine. - Discussed use of compression stockings; patient advised to obtain properly fitted stockings. - Advised patient to contact business applications manager to discuss reducing amlodipine dosage from 10 mg to 5 mg. - Educated on potential adjustment of other antihypertensive medications (metoprolol, losartan) to manage blood pressure while reducing amlodipine. # Generalized anxiety disorder (F41.1) # Recurrent major depressive disorder, in partial remission (F33.41) - Managed with duloxetine; prescription refilled. - Continue current medication regimen. # Essential hypertension (I10) - Blood pressure well-controlled at 120/50 mmHg. - Current medications include amlodipine, metoprolol, and losartan. - Discussed potential reduction of amlodipine dosage due to edema. # Vitamin D deficiency (E55.9) - Continue current supplementation. # S/P angioplasty with stent (Z95.820) # Coronary artery disease involving [place] coronary artery of [place] heart without angina pectoris (I25.10) - No recent chest pain reported. - Continue current medications including clopidogrel, isosorbide, and metoprolol. - Refills for clopidogrel and isosorbide sent to [facility] pharmacy. # Fibromyalgia (M79.7) - Managed with gabapentin; dosage adjusted to 300 mg TID. - Monitor for effectiveness in pain management. # Encounter for immunization (Z23) - Reviewed immunization status; no updates needed at this time. # Encounter for long-term current use of medication (Z79.899) - Reviewed and refilled medications: rosuvastatin, clopidogrel, isosorbide, duloxetine, metoprolol,gabapentin, omeprazole. - Prescriptions sent to [facility] pharmacy. # Pain in right hip (M25.551) - Pain localized to the right hip, likely muscular in origin. - Advised use of massage and gentle stretching exercises. - Monitor for any changes or worsening symptoms. # senior care (current) use of anticoagulants (Z79.01) - Continue clopidogrel 75 mg daily. - Prescription refilled and sent to [facility] pharmacy. # Dermatitis, unspecified (L30.9) - Advised application of lotion followed by tallow to affected areas. - Monitor for improvement in skin condition. Karen Resendiz MD documented in this encounterGrand [facility] Instructions* Patient Instructions* Karen Resendiz MD - 05/11/2024 1:44 PM EDT - Refill your medications at [facility] to ensure you have enough supply before they run out. - Take Clopidogrel (Plavix) 75 mg once daily as prescribed. - Take Rosuvastatin as prescribed. - Take Isosorbide as prescribed. - Take Duloxetine as prescribed. - Take Amlodipine 10 mg as prescribed; consider discussing with your business applications manager about reducing the dose to 5 mg due to leg swelling. - Take Metoprolol as prescribed. - Take Losartan as prescribed. - Take Gabapentin 300 mg one capsule three times daily as prescribed. - Apply lotion first, then tallow to affected areas of your skin to manage eczema. - Wear elastic support stockings that go up to your knees to help reduce leg swelling. - Schedule an appointment with your business applications manager to discuss adjusting your blood pressure medication. - Schedule an appointment with your dentist and inform them that you are taking Clopidogrel (Plavix). - Schedule an appointment with your crabber to discuss your living will and healthcare proxy. - Next follow-up appointment in 6 months. Screening schedule The following prevention plan is recommended: DTaP,Tdap,Td Vaccine(1 - Tdap) Never done Shingrix Vaccine(1 of 2) Never done RSV Vaccine(1 - 1-dose 75+ series) Never done Advance Directive Discussion due on 02/11/2024 WHAT YOU CAN DO TO PREVENT FALLS Many falls can be prevented. By making some changes, you can lower your chances of falling. Four things YOU can do to prevent falls for you* and your caregiver 1. Begin a regular exercise program Exercise is one of the most important ways to lower your chances of falling. It makes you stronger and helps you feel better. Exercises that improve balance and coordination (like Evens Chi) are the most helpful. Lack of exercise leads to weakness and increases your chances of falling. Ask your doctor or health care provider about the best type of exercise program for you. 2. Have your health care provider review your medicines Have your doctor or pharmacist review all the medicines you take, even [id number] medicines. As you get older, the way medicines work in your body can change. Some medicines, or combinations of medicines, can make you sleepy or dizzy andcan cause you to fall. 3. Have your vision checked Have your eyes checked by an eye doctor at least once a year. You may be wearing the wrong glasses or have a condition like glaucoma or cataracts that limits your vision. Poor vision can increase your chances of falling. 4. Make your home safer About half of all falls happen at home. To make your home safer: Remove things you can trip over (like papers, books, clothes, and shoes) from stairs and places where you walk. Remove small throw rugs or use double-sided tape to keep the rugs from slipping. Keep items you use often in cabinets you can reach easily without using a step stool. Have grab bars put in next to your toilet and in the tub or shower. Use non-slip mats in the bathtub and on shower floors. Improve the lighting in your home. As you get older, you need brighter lights to see well. Hang light-weight curtains or shades to reduce glare. Have handrails and lights put in on all staircases. Wear shoes both inside and outside the house. Avoid going barefoot or wearing slippers. For more information, contact: Centers for Disease Control and Prevention www.cdc.gov/injury * This information may not apply if you have certain medical conditions. documented in this encounterGrand Lake [facility]04-[facility]25 NoteHNO ID: [id number] Author: KAREN RESENDIZ MD Service: ? Author Type: Physician Type: Progress Notes Filed: 05/11/2024 14:34 Note Text: Kalina Rudd is a 83 year old female here for a Medicare wellness visit. Medicare Health Risk Assessment General Health Good Exercise: Minutes/Day 30 min Exercise: Days/Week 7 days Alcohol: Daily Use Never Alcohol: Drinks/Day Patient does not drink Alcohol: 6 or more drinks Never Feel off balance Yes--due to anterior hip pain Concerns: Teeth/Dentures No Concerns: Sexual function No Troubled by feelings Anxious Frequency: Eating healthy diet More than half the days ADLs requiring help None of the above Safety precautions in home/vehicle Yes Smoke, vape, chews tobacco No Difficulty hearing Yes Difficulty seeing No Current Providers Specialists: I have reviewed specialist-related care of the patient in the medical record. Outside specialists seen: [facility] Medical/Family history review Reviewed and updated problem list, medical/surgical/family/social history, medications, and allergies. Opioid use review Opioid Medications (last 90 days) No data to display Anxiety/Depression screening Recommendation: no further intervention at this time, continuing current treatment plan, and medication management Cognitive screening Mini Cog Score: 2 Cognitive screening reviewed and Recommended referral for further evaluation (score 0-2). Functional Observation Was the patient's Timed Up AND Go test unsteady or >= 12 seconds? No though antalgic gait due to right anterior medial hip pain Advance Care Planning Surrogate decision maker and/or advance care plan documented Measurements BP 122/58 Pulse 80 Resp 16 Ht 153 cm (5' 0.24) Wt 63.5 kg (139 lb 15.9 oz) BMI 27.13 kg/m? Vision Screening: Follows with optometry/ophthalmology Assessment/Plan Medicare annual wellness visit, subsequent (Z00.00) - Counseled on healthy diet and regular exercise - Fall avoidance information provided - Personalized prevention plan provided wellness Additional Concerns The following concerns were also discussed with the patient: The patient consented to the use of [employer] software for draft documentation of the visit consistent with [facility]?s Notice of Privacy Practices. Kalina is a 83-year-old female with a history of CA, HTN, and eczema, presenting for a Medicare Annual Wellness Visit. Kalina reports right hip pain that occurs when standing up and walking, but is alleviated by straightening the leg before walking. The pain is located in the anterior groin and buttocks. 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 She finds relief by leaning on a shopping cart while walking. She denies any previous x-rays of her back. She also reports bilateral lower extremity edema, which she attributes to an increased dose of amlodipine from 5 mg to 10 mg. She notes that the edema is less pronounced in the morning but worsens throughout the day. She has been using compression stockings, but finds them ineffective and uncomfortable. She denies any recent chest pain, but experiences dyspnea with excessive housework. She is currently taking 10 mg of amlodipine and has not yet contacted her business applications manager about reducing the dose. She also reports eczema, which she has been treating with tallow, but notes that it is not fully effective. She denies using lotion regularly. She is currently taking clopidogrel, rosuvastatin, isosorbide, duloxetine, metoprolol, gabapentin, losartan, and omeprazole. She has reduced her gabapentin dose from 2 pills TID to 1 pill TID. She denies any issues with constipation or diarrhea, but notes that she sometimes experiences diarrhea after eating salads at restaurants. She also reports difficulty sleeping at night, but sleeps well during the day. She denies any recent falls. She has not yet completed her advance directives, but has designated her as her healthcare proxy. She has not seen her dentist since her CA, but plans to schedule an appointment. She also plans to start walking outside as the weather improves. Constitutional: (+) sleep disturbance Cardiovascular: (-) chest pain, (+) leg swelling Respiratory: (+) shortness of breath with exertion Gastrointestinal: (+) diarrhea after restaurant salads, (-) constipation Musculoskeletal: (+) hip pain, (+) low back pain, (+) leg ?giving out? Skin: (+) dryness, (+) rash on legs BP 122/58 Pulse 80 Resp 16 Ht 153 cm (5' 0.24) Wt 63.5 kg (139 lb 15.9 oz) BMI 27.13 kg/m? Constitutional: General: No acute distress. Appearance: Normal appearance, well-developed. HENT: Head: Normocephalic. Right Ear: Tympanic membrane, ear canal and external ear normal. Some wax noted. Left Ear: Tympanic membrane, ear canal and external ear normal. Nose: Nose normal (more content not included)...[facility] 03-16-2024 Telephone encounter Note* Telephone Encounter - Karen Resendiz MD - 03/16/2024 2:30 AM EST The following approved medication requests have been transmitted electronically. Requested Prescriptions Pending Prescriptions Disp Refills omeprazole (PRILOSEC) 40 mg capsule 90 capsule 3 Sig: Take 1 capsule by mouth once daily. Karen Resendiz MD [facility]02-04-2025 Miscellaneous Notes* Telephone Encounter - Karen Resendiz MD - 03/16/2024 2:30 AM EST The following approved medication requests have been transmitted electronically. Requested Prescriptions Pending Prescriptions Disp Refills omeprazole (PRILOSEC) 40 mg capsule 90 capsule 3 Sig: Take 1 capsule by mouth once daily. Karen Resendiz MD * Telephone Encounter - Kym Patel - 03/15/2024 3:51 PM EST Prescription Refill Information The patient has been identified by name and date of : Yes Caregiver verified no other encounters exist for this prescription request: Yes Caregiver confirmed with patient/requestor that no other refills are due, in the near future, with this provider at this time: Yes The last office visit in the department: 03-12-24 Does the patient have a future office visit with this provider/department: Yes Requested Prescriptions Pending Prescriptions Disp Refills omeprazole (PRILOSEC) 40 mg capsule 90 capsule 3 Sig: Take 1 capsule by mouth once daily. Kym Cuellar March 15, 2024 3:52 PM documented in this encounterGrand Lake [facility]02-03-2025 Telephone encounter Note * Telephone Encounter - Kym Patel - 03/15/2024 3:51 PM EST Prescription Refill Information The patient has been identified by name and date of : Yes Caregiver verified no other encounters exist for this prescription request: Yes Caregiver confirmed with patient/requestor that no other refills are due, in the near future, with this provider at this time: Yes The last office visit in the department: 03-12-24 Does the patient have a future office visit with this provider/department: Yes Requested Prescriptions Pending Prescriptions Disp Refills omeprazole (PRILOSEC) 40 mg capsule 90 capsule 3 Sig: Take 1 capsule by mouth once daily. Kym Cuellar March 15, 2024 3:52 PM [facility] Work Phone: [phone] History of Present illness Narrative* Ariana Cardoza RT(R) - 03/12/2024 12:30 PM EST Radiology Service Progress Note PATIENT NAME: Kalina Rudd DATE OF SERVICE: March 12, 2024 TIME: 12:24 PM PATIENT IDENTITY VERIFICATION COMPLETED USING TWO (2) IDENTIFIERS: Name and Date of confirmedby patient verbally. FALL SCREENING: Has the patient had 2 falls in the last year or 1 fall with injury or currently using an Ambulatory Assistive Device (Walker, Cane, Wheelchair, Crutches, etc.)? No PATIENT GENDER DATA: Assigned female at . status: : No status:NO. PATIENT RELEVANT IMPLANT DATA REVIEWED: Not Applicable PATIENT PRESENTS WITH AN IMPLANTABLE OR ATTACHED LEAD JAVASCRIPT DEVELOPER: No RADIOLOGY DEPARTMENT: General X-ray: Exam(s) Completed: Chest X-Ray PERIPHERAL IV DATA: Not applicable SIGNED BY: SIERRA Flores) March 12, 2024 12:24 PM documented in this encounterGrand Lake [facility]01-31-2025 NoteHNO ID: [id number] Author: ARIANA CARDOZA RT(R) Service: Radiology Author Type: Technologist Type: Progress Notes Filed: 03/12/2024 12:39 Note Text: Radiology Service Progress Note PATIENT NAME: Kalina Rudd DATE OF SERVICE: March 12, 2024 TIME: 12:24 PM PATIENT IDENTITY VERIFICATION COMPLETED USING TWO (2) IDENTIFIERS: Name and Date of confirmed by patient verbally. FALL SCREENING: Has the patient had 2 falls in the last year or 1 fall with injury or currently using an Ambulatory Assistive Device (Walker, Cane, Wheelchair, Crutches, etc.)? No PATIENT GENDER DATA: Assigned female at . status: : No status: NO. PATIENT RELEVANT IMPLANT DATA REVIEWED: Not Applicable PATIENT PRESENTS WITH AN IMPLANTABLE OR ATTACHED LEAD JAVASCRIPT DEVELOPER: No RADIOLOGY DEPARTMENT: General X-ray: Exam(s) Completed: Chest X-Ray PERIPHERAL IV DATA: Not applicable SIGNED BY: Ariana Cardoza RT(R) March 12, 2024 12:24 [facility]01-31-2025 Instructions* Patient Instructions* Alexei Skelton MD - 03/12/2024 12:21 PM EST Use Monistat first for yeast infection. Only if not better, take Diflucan tablet once. There is interaction with your Plavix. documented in this encounterGrand Lake Joint [facility]01-31-2025 NoteHNO ID: [id number] Author: ALEXEI SKELTON MD Service: ? Author Type: Physician Type: Progress Notes Filed: 03/12/2024 13:48 Note Text: This note was created using [employer]. Subjective Patient presents with: Cough: dry sounding for about 2 weeks more at night. Clear nasal drainage. scratchy throat Kalina Rudd is a 83 year old female who presents with complaint of nasal congestion, cough- nonproductive and with some dyspnea, and fatigue for 2 weeks. Associated symptoms include sore throat- mild and headache. She denies fever, ear pain, wheezing, trouble swallowing, nausea, vomiting, diarrhea, and difficulty drinking fluids . Treatments tried include nothing so far. Her had strep throat 2 weeks ago. She had sharp brief left sided chest pain that seemed related to movement. She is status post STEMI, cardiac cath, and PCI with stents of LAD, CFX, and OM1 2023. [facility] Review of Systems Constitutional: Negative for chills and diaphoresis. Respiratory: Negative for chest tightness and wheezing. Cardiovascular: Negative for palpitations and leg swelling. Gastrointestinal: Negative for abdominal pain, diarrhea, nausea and vomiting. Genitourinary: Negative for vaginal discharge. Neurological: Negative for dizziness and light-headedness. 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 PLAVIX 75 mg tablet Take 75 mg by mouth once daily. 10 am isosorbide mononitrate ER (IMDUR) 30 mg 24 hr tablet Take 30 mg by mouth once daily. Before a meal rosuvastatin (CRESTOR) 20 mg tablet Take 1 tablet by mouth daily at bedtime. losartan (COZAAR) 50 mg tablet Take 1 tablet by mouth once daily. metoprolol succinate ER (TOPROL XL) 50 mg 24 hr tablet Take 1 tablet by mouth once daily. gabapentin (NEURONTIN) 300 mg capsule TAKE 2 CAPSULES THREE TIMES DAILY DIRECTED crisaborole 2 % Apply to affected area two times a day. Apply a thin film to affected area(s) 2 times daily DULoxetine (CYMBALTA) 60 mg capsule Take 1 capsule by mouth once daily. omeprazole (PRILOSEC) 40 mg capsule Take 1 capsule by mouth once daily. dorzolamide HCl/PF (DORZOLAMIDE, PF,) 2 % drop Use 1 Drop in eyes three times daily. amLODIPine (NORVASC) 10 mg tablet Take 1 tablet by mouth once daily. [facility]. amoxicillin (AMOXIL) 875 mg tablet Take 1 tablet by mouth two times a day for 5 days. fluconazole (DIFLUCAN) 150 mg tablet Take 1 tablet by mouth one time only for 1 dose. estradiol (ESTRACE) 0.01 % (0.1 mg/gram) vaginal cream Apply to urethral opening for atrophic vaginitis. Two to three times a week. Miscellaneous Medical Supply [facility] probiotics--Yeast and Vaginal PH support probiotic. Probiotic blend. Takes 1 by mouth at bedtime glycerin-min oil-polycarbophil (REPLENS) gel Uses Replens cream 3 times weekly COMPOUNDED PRESCRIPTION Massage therapy Dx: Fibromyalgia, Arthritis No current facility-administered medications for this visit. Objective BP 128/60 Pulse 81 Temp 37.8 ?C (100 ?F) (Temporal) Resp 20 Wt 63.3 kg (139 lb 8.8 oz) SpO2 95% BMI 25.94 kg/m? Physical Exam Constitutional: General: She is not in acute distress. Appearance: She is not ill-appearing or diaphoretic. HENT: Head: Normocephalic. Right Ear: Tympanic membrane normal. Left Ear: Tympanic membrane normal. Nose: Congestion present. Right Sinus: No maxillary sinus tenderness or frontal sinus tenderness. Left Sinus: No maxillary sinus tenderness or frontal sinus tenderness. Comments: Purulent drainage, left nares. Mouth/Throat: Pharynx: Postnasal drip present. No oropharyngeal exudate or posterior oropharyngeal erythema. Cardiovascular: Rate and Rhythm: Normal rate and regular rhythm. Heart sounds: S1 normal and S2 normal. Murmur heard. Systolic murmur is present with a grade of 1/6. Pulmonary: Effort: No respiratory distress. Breath sounds: Examination of the right-upper field reveals wheezing. Wheezing present. No rhonchi or rales. Chest: Chest wall: No tenderness. Abdominal: Tenderness: There is no abdominal tenderness. Musculoskeletal: Cervical back: No tenderness. Right lower leg: No edema. Left lower leg: No edema. Lymphadenopathy: (more content not included)...[facility]01-31-2025 History of Present illness Narrative* Alexei Skelton MD - 03/12/2024 11:55 AM EST This note was created using Ubequityter. Subjective Patient presents with: Cough: dry sounding for about 2 weeks more at night. Clear nasal drainage. scratchy throat Kalina Rudd is a 83 year old female who presents with complaint of nasal congestion, cough- nonproductive and with some dyspnea, and fatigue for 2 weeks. Associated symptoms include sore throat- mild and headache. She denies fever, ear pain, wheezing, trouble swallowing, nausea, vomiting, diarrhea, and difficulty drinking fluids . Treatments tried include nothing so far. Her had strep throat 2 weeks ago. She had sharp brief left sided chest pain that seemed related to movement. She is status post STEMI, cardiac cath, and PCI with stents of LAD, CFX, and OM1 2023. [facility]. Review of Systems Constitutional: Negative for chills and diaphoresis. Respiratory: Negative for chest tightness and wheezing. Cardiovascular: Negative for palpitations and leg swelling. Gastrointestinal: Negative for abdominal pain, diarrhea, nausea and vomiting. Genitourinary: Negative for vaginal discharge. Neurological: Negative for dizziness and light-headedness. 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 PLAVIX 75 mg tablet Take 75 mg by mouth once daily. 10 am isosorbide mononitrate ER (IMDUR) 30 mg 24 hr tablet Take 30 mg by mouth once daily. Before a meal rosuvastatin (CRESTOR) 20 mg tablet Take 1 tablet by mouth daily at bedtime. losartan (COZAAR) 50 mg tablet Take 1 tablet by mouth once daily. metoprolol succinate ER (TOPROL XL) 50 mg 24 hr tablet Take 1 tablet by mouth once daily. gabapentin (NEURONTIN) 300 mg capsule TAKE 2 CAPSULES THREE TIMES DAILY DIRECTED crisaborole 2 % Apply to affected area two times a day. Apply a thin film to affected area(s) 2 times daily DULoxetine (CYMBALTA) 60 mg capsule Take 1 capsule by mouth once daily. omeprazole (PRILOSEC) 40 mg capsule Take 1 capsule by mouth once daily. dorzolamide HCl/PF (DORZOLAMIDE, PF,) 2 % drop Use 1 Drop in eyes three times daily. amLODIPine (NORVASC) 10 mg tablet Take 1 tablet by mouth once daily. [facility]. amoxicillin (AMOXIL) 875 mg tablet Take 1 tablet by mouth two times a day for 5 days. fluconazole (DIFLUCAN) 150 mg tablet Take 1 tablet by mouth one time only for 1 dose. estradiol (ESTRACE) 0.01 % (0.1 mg/gram) vaginal cream Apply to urethral opening for atrophic vaginitis. Two to three times a week. Miscellaneous Medical Supply [facility] probiotics--Yeast and Vaginal PH support probiotic. Probiotic blend. Takes 1 by mouth at bedtime glycerin-min oil-polycarbophil (REPLENS) gel Uses Replens cream 3 times weekly COMPOUNDED PRESCRIPTION Massage therapy Dx: Fibromyalgia, Arthritis No current facility-administered medications for this visit. Objective BP 128/60 Pulse 81 Temp 37.8 C (100 F) (Temporal) Resp 20 Wt 63.3 kg (139 lb 8.8 oz) PhD367% BMI 25.94 kg/m Physical Exam Constitutional: General: She is not in acute distress. Appearance: She is not ill-appearing or diaphoretic. HENT: Head: Normocephalic. Right Ear: Tympanic membrane normal. Left Ear: Tympanic membrane normal. Nose: Congestion present. Right Sinus: No maxillary sinus tenderness or frontal sinus tenderness. Left Sinus: No maxillary sinus tenderness or frontal sinus tenderness. Comments: Purulent drainage, left nares. Mouth/Throat: Pharynx: Postnasal drip present. No oropharyngeal exudate or posterior oropharyngeal erythema. Cardiovascular: Rate and Rhythm: Normal rate and regular rhythm. Heart sounds: S1 normal and S2 normal. Murmur heard. Systolic murmur is present with a grade of 1/6. Pulmonary: Effort: No respiratory distress. Breath sounds: Examination of the right-upper field reveals wheezing. Wheezing present. No rhonchi or rales. Chest: Chest wall: No tenderness. Abdominal: Tenderness: There is no abdominal tenderness. Musculoskeletal: Cervical back: No tenderness. Right lower leg: No edema. Left lower leg: No edema. Lymphadenopathy: Cervical: No cervical adenopathy. Neurological: Mental Status: She is alert. Gait: Gait normal. Assessment and Plan 1. Acute cough - ICD9: 786.2, ICD10: R05.1 (primary diagnosis) - XR CHEST 2V FRONTAL/LAT 2. Acute non-recurrent sinusitis, unspecified location - ICD9: 461.9, ICD10: J01.90 - Will begin treatment with as per antibiotic as written, see orders - AMOXICILLIN 875 MG TABLET - FLUCONAZOLE 150 MG TABLET for monilial vaginitis. This interacts with Plavix. Try vaginal cream first. See printed instructions or information. 3. Essential hypertension - ICD9: 401.9, ICD10: I10 - Controlled - AMLODIPINE 10 MG TABLET 4. History of ST elevation myocardial infarction (STEMI) - ICD9: 412, ICD10: I25.2 - Stable. 5. Coronary artery disease involving [place] coronary artery of [place] heart with angina pectoris (HCC) - ICD9: 414.01, 413.9, ICD10: I25.119 - Per Dr. Good. 6. S/P angioplasty with stent - ICD9: V45.89, ICD10: Z95.820 - Per Dr. Good. Alexei Skelton MD documented in this encounterGrand [facility] Telephone encounter Note * Telephone Encounter - Everardo Mensah RN - 03/12/2024 9:21 AM EST Pt reports dry cough for 2 weeks, only at night. Improved since 2 weeks ago, but just doesn't feel good and ribs hurt when taking a deep breath. Had mild sharp CP last night only. Lasted few seconds and it has not returned. With hx of CA with 3 stents in Jan 2024, used the CP protocol. Patient wants to r/o pneumonia. is taking medication for strep. Patient does not have a sore throat and no SOB unless she over does it. No edema. Blowing nose a lot. BP yesterday 120/59 (71). Protocol recommends see provider in 24 hours. Scheduled same day appt. Reason for Disposition [1] Chest pain lasts < 5 minutes AND [2] NO chest pain or cardiac symptoms (e.g., breathing difficulty, sweating) now (Exception: Chest pains that last only a few seconds.) Answer Assessment - Initial Assessment Questions 1. LOCATION: Left side chest sharp pain once in while last night. Otherwise has had a cough- mostlyat night/sneeze for about 2 weeks, mainly when laying in bed. No sore throat. SOB only if overdoes it. No swelling in feet or legs. Blowing nose quite a bit.. No ear pain today. Cold symptoms are improving from 2 weeks ago. was dx with strep throat 2 weeks ago and is still taking medication for that. Cough is dry and ribs are sore with deep breath. 2. RADIATION:No radiation. Back pain is chronic all the time. 3. ONSET: Only occurred last night. Couldn't sleep at all last night and maybe noticed it more. 4. PATTERN:CP is gone today. BP has been good. 120/59 (71) yesterday. 5. DURATION: Came and went, a few seconds. 6. SEVERITY: States when she had the CP last night it was mild. 7. CARDIAC RISK FACTORS: Reports she had CA (at [facility]) in Jan, 2024. [facility] sent her to [facility] received 3 stents. Taking a blood thinner daily- plavix, has nitroglycerin pills. Taking metoprolol, baby asa, amlodipine 10 mg daily, losartan. Takes cholesterol medication at - just startedrecently. 8. PULMONARY RISK FACTORS No lung history. Never had blood clots. 9. CAUSE: No idea. States may be from her fibromyalgia. 10. OTHER SYMPTOMS:When first got sick with this cold 2 weeks ago- it was hard to walk at first- was a little dizzy. Now doing good. No nausea or vomiting. Sweaty once in while when gets to hot. No fevers. No SOB. Cough is dry. Pain in ribs only with deep breath. 11. : Post menopause. Protocols used: Chest [id number] [facility]01-31-2025 Miscellaneous Notes* Telephone Encounter - Everardo Mensah RN - 03/12/2024 9:21 AM EST Pt reports dry cough for 2 weeks, only at night. Improved since 2 weeks ago, but just doesn't feel good and ribs hurt when taking a deep breath. Had mild sharp CP last night only. Lasted few seconds and it has not returned. With hx of CA with 3 stents in Jan 2024, used the CP protocol. Patient wants to r/o pneumonia. is taking medication for strep. Patient does not have a sore throat and no SOB unless she over does it. No edema. Blowing nose a lot. BP yesterday 120/59 (71). Protocol recommends see provider in 24 hours. Scheduled same day appt. Reason for Disposition [1] Chest pain lasts < 5 minutes AND [2] NO chest pain or cardiac symptoms (e.g., breathing difficulty, sweating) now (Exception: Chest pains that last only a few seconds.) Answer Assessment - Initial Assessment Questions 1. LOCATION: Left side chest sharp pain once in while last night. Otherwise has had a cough- mostlyat night/sneeze for about 2 weeks, mainly when laying in bed. No sore throat. SOB only if overdoes it. No swelling in feet or legs. Blowing nose quite a bit.. No ear pain today. Cold symptoms are improving from 2 weeks ago. was dx with strep throat 2 weeks ago and is still taking medication for that. Cough is dry and ribs are sore with deep breath. 2. RADIATION:No radiation. Back pain is chronic all the time. 3. ONSET: Only occurred last night. Couldn't sleep at all last night and maybe noticed it more. 4. PATTERN:CP is gone today. BP has been good. 120/59 (71) yesterday. 5. DURATION: Came and went, a few seconds. 6. SEVERITY: States when she had the CP last night it was mild. 7. CARDIAC RISK FACTORS: Reports she had CA (at [facility]) in Jan, 2024. [facility] sent her to [facility] received 3 stents. Taking a blood thinner daily- plavix, has nitroglycerin pills. Taking metoprolol, baby asa, amlodipine 10 mg daily, losartan. Takes cholesterol medication at - just startedrecently. 8. PULMONARY RISK FACTORS No lung history. Never had blood clots. 9. CAUSE: No idea. States may be from her fibromyalgia. 10. OTHER SYMPTOMS:When first got sick with this cold 2 weeks ago- it was hard to walk at first- was a little dizzy. Now doing good. No nausea or vomiting. Sweaty once in while when gets to hot. No fevers. No SOB. Cough is dry. Pain in ribs only with deep breath. 11. : Post menopause. Protocols used: Chest [id number] documented in this encounterGrand Lake Joint Township [facility]12-23-2024 NoteHNO ID: [id number] Author: KORINA BILLY RN Service: ? Author Type: Registered Nurse Type: Progress Notes Filed: 02/02/2024 14:18 Note Text: Transitional Care Management (TCM) Follow-Up Note PCP Update / Actionable Items N/A - No specialty updates needed Patient Source: [id number] ([place]) Discharge Outreach Summary: Spoke with patient for follow up , doing well at home. She is monitoring her BP but did not check it today yet , she does have them recorded but patient currently resting. Has some concerns regarding her recent care at [facility] which is not covered by her insurance. She does have some contacts to reach out to regarding more information on patient assistance Patient discharged from [facility] Discharge date: 01/19/2024 Admitted for: STEMI Readmission Risk: n/a Value-Based Contract: Pedro MONORY Contact: Contact made with patient: Yes Spoke to: Patient Validation: Validated the person spoken to is actively involved in the patient's care. The patient was identified by Name and Date of . I'd like to get an update on how you're doing since our last phone call. Is now a good time to talk? Yes Symptoms: Are you feeling about the same, better or worse since leaving the hospital? Better Weekly Outreach: 1st Outreach Medications: Do you have any questions about taking your medications, including which medications you should be on, or do you need refills on your medications? No Patient Questions / Concerns: Do you have any questions related to your discharge? No Appointment / TCM Follow-Up: Have you had a follow-up visit with your Primary Care Provider or Specialist since you were discharged? Yes Do you need any assistance with scheduling or changing your follow-up appointments? Already seen Education High Blood Pressure Topics Covered Importance of checking and monitoring your blood pressure at home Targets addressed / completed during outreach: Patient has TCM appointment with PC within 14 days Outreach Outcome: Continue TCM Outreach for remainder of 30 days Care Management partners utilized: N/A Korina Billy RN February 02, 2024 2:17 [facility]12-23-2024 History of Present illness Narrative* Korina Billy RN - 02/02/2024 2:10 PM EST Transitional Care Management (TCM) Follow-Up Note PCP Update / Actionable Items N/A - No specialty updates needed Patient Source: Rlu-[id number][facility]Yusjqdv ([place]) Discharge Outreach Summary: Spoke with patient for follow up , doing well at home. She is monitoring her BP but did not check it today yet , she does have them recorded but patient currently resting. Has some concerns regarding her recent care at [facility] which is not covered by her insurance. She does have some contacts to reach out to regarding more information on patient assistance Patient discharged from [facility] Discharge date: 01/19/2024 Admitted for: STEMI Readmission Risk: n/a Value-Based Contract: Pedro MONROY Contact: Contact made with patient: Yes Spoke to: Patient Validation: Validated the person spoken to is actively involved in the patient's care. The patient was identified by Name and Date of . I'd like to get an update on how you're doing since our last phone call. Is now a good time to talk? Yes Symptoms: Are you feeling about the same, better or worse since leaving the hospital? Better Weekly Outreach: 1st Outreach Medications: Do you have any questions about taking your medications, including which medications you should be on, or do you need refills on your medications? No Patient Questions / Concerns: Do you have any questions related to your discharge? No Appointment / TCM Follow-Up: Have you had a follow-up visit with your Primary Care Provider or Specialist since you were discharged? Yes Do you need any assistance with scheduling or changing your follow-up appointments? Already seen Education High Blood Pressure Topics Covered Importance of checking and monitoring your blood pressure at home Targets addressed / completed during outreach: Patient has TCM appointment with PC within 14 days Outreach Outcome: Continue TCM Outreach for remainder of 30 days Care Management partners utilized: N/A Korina Billy RN February 02, 2024 2:17 PM documented in this encounterGrand Lake Joint Township [facility]12-23-2024 NotePatient Outreach ([facility]) KALINA RUDD ([id number]) 1940 [address] [facility] Date Time Provider Department 02/02/24 KORINA BILLY During your visit today, we recorded the following information about you: Korina Billy RN 02/02/2024 2:18 PM Signed Transitional Care Management (TCM) Follow-Up Note PCP Update / Actionable Items N/A - No specialty updates needed Patient Source: [id number] ([place]) Discharge Outreach Summary: Spoke with patient for follow up , doing well at home. She is monitoring her BP but did not check it today yet , she does have them recorded but patient currently resting. Has some concerns regarding her recent care at [facility] which is not covered by her insurance. She does have some contacts to reach out to regarding more information on patient assistance Patient discharged from [facility] Discharge date: 01/19/2024 Admitted for: STEMI Readmission Risk: n/a Value-Based Contract: Pedro MONROY Contact: Contact made with patient: Yes Spoke to: Patient Validation: Validated the person spoken to is actively involved in the patient's care. The patient was identified by Name and Date of . I'd like to get an update on how you're doing since our last phone call. Is now a good time to talk? Yes Symptoms: Are you feeling about the same, better or worse since leaving the hospital? Better Weekly Outreach: 1st Outreach Medications: Do you have any questions about taking your medications, including which medications you should be on, or do you need refills on your medications? No Patient Questions / Concerns: Do you have any questions related to your discharge? No Appointment / TCM Follow-Up: Have you had a follow-up visit with your Primary Care Provider or Specialist since you were discharged? Yes Do you need any assistance with scheduling or changing your follow-up appointments? Already seen Education High Blood Pressure Topics Covered Importance of checking and monitoring your blood pressure at home Targets addressed / completed during outreach: Patient has TCM appointment with PC within 14 days Outreach Outcome: Continue TCM Outreach for remainder of 30 days Care Management partners utilized: N/A Korina Billy RN February 02, 2024 2:17 PM Allergies As of Date: 02/02/2024 Noted Allergy Reaction AMITRIPTYLINE 10/01/2012 14 - Other: See Comments Comments: Could not urinate CODEINE 10/16/2004 Comments: chest pain SULFA (SULFONAMIDE ANTIBIOTICS) 03/31/2015 4 - Hives 7 - Swelling 9 - Itching TRAZODONE 10/16/2004 Comments: vivid dreams Date Reviewed: 01/27/2024 Reviewed by: Carmita Abreu LPN - Fully Assessed Reason for Visit: Transition Of Care [4074] Cmt: Follow up day 14 Prescriptions as of 02/02/2024 - amLODIPine (NORVASC) 5 mg tablet Take 5 mg by mouth once daily. - aspirin, enteric coated (ASPIRIN, ENTERIC COATED) 81 mg EC tablet Take 1 tablet by mouth every afternoon. - PLAVIX 75 mg tablet Take 75 mg by mouth once daily. 10 am - isosorbide mononitrate ER (IMDUR) 30 mg 24 hr tablet Take 30 mg by mouth once daily. Before a meal - rosuvastatin (CRESTOR) 20 mg tablet Take 1 tablet by mouth daily at bedtime. - losartan (COZAAR) 50 mg tablet Take 1 tablet by mouth once daily. - metoprolol succinate ER (TOPROL XL) 50 mg 24 hr tablet Take 1 tablet by mouth once daily. - gabapentin (NEURONTIN) 300 mg capsule TAKE 2 CAPSULES THREE TIMES DAILY DIRECTED - amLODIPine (NORVASC) 2.5 mg tablet Take 1 tablet by mouth once daily. as needed for a blood pressure 150/80 or greater. - crisaborole 2 % Apply to affected area two times a day. Apply a thin film to affected area(s) 2 times daily - DULoxetine (CYMBALTA) 60 mg capsule Take 1 capsule by mouth once daily. - omeprazole (PRILOSEC) 40 mg capsule Take 1 capsule by mouth once daily. - estradiol (ESTRACE) 0.01 % (0.1 mg/gram) vaginal cream Apply to urethral opening for atrophic vaginitis. Two to three times a week. - clobetasol (TEMOVATE) 0.05 % ointment Actually gets compounded RX 0.07% through [facility] from [employer] to use twice weekly - Miscellaneous Medical Supply [facility] probiotics--Yeast and Vaginal PH support probiotic. Probiotic blend. Takes 1 by mouth at bedtime - triamcinolone (KENALOG) 0.025 % ointment Apply 1 application to affected area twice daily as needed. uses near vaginal area - dorzolamide HCl/PF (DORZOLAMIDE, PF,) 2 % drop Use 1 Drop in eyes three times daily. 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 - Take your 9:30 AM medications (metoprolol, Plavix) at 11:30 AM. - Ensure you take your medications consistently at the same time each day. - Continue taking your current medications as prescribed: - Imdur for chest pain. - Omeprazole for acid reflux. - Metoprolol for blood pressure. - Plavix to keep your stents open. - Amlodipine 5 mg daily for blood pressure. - Losartan 50 mg daily for blood pressure. - Rosuvastatin 20 mg at bedtime for cholesterol. - Monitor your blood pressure daily and record the readings. - Use your eczema medication as needed; if it irritates your skin, discontinue use. - Apply a bland lotion (e.g., CeraVe, Aveeno, Eucerin, Lubriderm) to keep your skin moisturized andprevent eczema flare-ups. - Drink plenty of water and maintain a healthy diet, including bone broth for its collagen benefits. - Call Dr. Meadows's office to schedule an appointment with a business applications manager. - Follow up with cardiology on February 17. documented in this encounterGrand Lake Joint Township District [facility]12-17-2024 NoteHNO ID: [id number] Author: KAREN RESENDIZ MD Service: ? Author Type: Physician Type: Progress Notes Filed: 02/23/2024 00:14 Note Text: Transitional Care Management TCM Eligibility Documentation Program: Transitional Care Management Status: Enrolled Effective Dates: 01/21/2024 - present Responsible Staff: Korina Billy RN Discharge date: 01/19/2024 (Program start) Date of initial contact: 01/21/2024 Initial contact Target status: Successful; Contact made within 2 business days post-discharge Re-Admitted again 01/23 and discharged yesterday Provider Documentation Kalina Rudd is a 83 year old female here today for a follow up from recent hospitalization. I have reviewed the patient's hospital course including discharge summary, discharge medications , and follow up needs with the patient and any family members present at today's visit. HPI Patient presents with: Hospital F/U: [facility] x 2 hospital visits SUBJECTIVE: Kalina Rudd is a 83 year old year old lady here today for TCM follow up appointment for review of medical conditions. From most recent hospital stay: Patient states that her blood pressure has been high over the last few days up into the 190s systolic. Because of her high blood pressure she was concerned and presented to the ED. She denied any chest pain, chest discomfort, shortness of breath, dyspnea on exertion. Upon arrival to the ED, patient was hypertensive to the 180s systolic but otherwise hemodynamically stable. While in the ED, she began having some chest and back discomfort. She was given IV pain medication and a Nitropatch which reduced the pain. Labs significant for sodium 139, potassium 3.9, creatinine 0.85, troponin in the 334-> 288-> 250, BNP unable to be obtained. D-dimer elevated. CTA chest negative for PE or aortic dissection, did demonstrate emphysema with mild ground-glass opacities. Given her recent STEMI and stent placements, she was transferred to [facility] for further evaluation. Upon arrival to the CCU, patient was hypertensive. Denied any chest pain. EKG demonstrating normal sinus rhythm with a PVC and no significant ST segment changes when compared to prior. Last echo 01/20/2024: EF 55 to 60% with no regional wall motion abnormalities, grade 1 diastolic dysfunction, mild to moderate aortic valve regurgitation. Plan: Reinitiate home metoprolol 50 mg daily, increase home losartan to 50 mg daily Start amlodipine 5 mg daily Continue aspirin and Plavix Trend troponin Obtain new labs Kalina Rudd is an 83-year-old female with a history of recent CA and stent placement, presenting for follow-up after two recent hospital admissions. Kalina reports experiencing back and chest pain following two recent hospital admissions for an CA, during which three stents were placed. She is currently taking Imdur for chest pain prophylaxis, which she administers at 0700. She also takes omeprazole at 0700, and metoprolol and Plavix at 0930. She reports difficulty adhering to this schedule due to her sleep patterns, noting that she and her partner do not sleep well at night and prefer to sleep in late in the morning. She also takes glaucoma eye drops at 0900 and inquires about adjusting her medication schedule to better fit her routine. Kalina reports that her blood pressure was 140/80 mmHg this morning, but she did not measure it yesterday. She is currently taking amlodipine 5 mg daily, losartan 50 mg daily, and metoprolol 50 mg daily. She recalls that during her second hospital admission, her metoprolol dosage was not increased for reasons she cannot remember. She also takes rosuvastatin 20 mg at bedtime and potassium supplements, which she describes as huge and difficult to swallow. Kalina has a follow-up appointment with her business applications manager on February 17, but she plans to switch to a local business applications manager due to insurance coverage issues. She expresses concern about her ability to afford her medications and medical bills, noting that she has been living comfortably on her current income but did not anticipate these medical expenses. Kalina also reports ongoing issues with eczema, for which she was prescribed a topical medication that she has not been using due to instructions from her first hospital discharge. She notes that her skin has been feeling better since she stopped using the medication. She does not currently use any lotions to keep her skin from getting dry. PAST MEDICAL HISTORY Diagnosis Date Dysthymic disorder Depression (non-psychotic) Essential hypertension, benign Generalized anxiety disorder Anxiety, Generalized Generalized osteoarthrosis, unspecified site Lichen sclerosus Myalgia and myositis, unspecified OSTEOPOROSIS NOS Osteoporosis, unspecified Current Outpatient Medications Medication Sig amLODIPine (NORVASC) 5 mg tablet Take 5 mg by mouth once daily. riley (more content not included)...[facility]12-17-2024 History of Present illness Narrative* Karen Resendiz MD - 01/27/2024 11:55 AM EST Transitional Care Management TCM Eligibility Documentation Program: Transitional Care Management Status: Enrolled Effective Dates: 01/21/2024 - present Responsible Staff: Korina Billy RN Discharge date: 01/19/2024 (Program start) Date of initial contact: 01/21/2024 Initial contact Target status: Successful; Contact made within 2 business days post-discharge Re-Admitted again 01/23 and discharged yesterday Provider Documentation Kalina Rudd is a 83 year old female here today for a follow up from recent hospitalization. I have reviewed the patient's hospital course including discharge summary, discharge medications , and follow up needs with the patient and any family members present at today's visit. HPI Patient presents with: Hospital F/U: [facility] x 2 hospital visits SUBJECTIVE: Kalina Rudd is a 83 year old year old lady here today for TCM follow up appointment for review of medical conditions. From most recent hospital stay: Patient states that her blood pressure has been high over the last few days up into the 190s systolic. Because of her high blood pressure she was concerned and presented to the ED. She denied any chest pain, chest discomfort, shortness of breath, dyspnea on exertion. Upon arrival to the ED, patient was hypertensive to the 180s systolic but otherwise hemodynamicallystable. While in the ED, she began having some chest and back discomfort. She was given IV pain medication and a Nitropatch which reduced the pain. Labs significant for sodium 139, potassium 3.9, creatinine 0.85, troponin in the 334-> 288-> 250, BNP unable to be obtained. D-dimer elevated. CTA chest negative for PE or aortic dissection, did demonstrate emphysema with mild ground-glass opacities. Given her recent STEMI and stent placements, she was transferred to [facility] for further evaluation. Upon arrival to the CCU, patient was hypertensive. Denied any chest pain. EKG demonstrating normal sinus rhythm with a PVC and no significant ST segment changes when compared to prior. Last echo 01/20/2024: EF 55 to 60% with no regional wall motion abnormalities, grade 1 diastolic dysfunction, mild to moderate aortic valve regurgitation. Plan: Reinitiate home metoprolol 50 mg daily, increase home losartan to 50 mg daily Start amlodipine 5 mg daily Continue aspirin and Plavix Trend troponin Obtain new labs Kalina Rudd is an 83-year-old female with a history of recent CA and stent placement, presenting for follow-up after two recent hospital admissions. Kalina reports experiencing back and chest pain following two recent hospital admissions for an CA, during which three stents were placed. She is currently taking Imdur for chest pain prophylaxis, which she administers at 0700. She also takes omeprazole at 0700, and metoprolol and Plavix at 0930. She reports difficulty adhering to this schedule due to her sleep patterns, noting that she and her partner do not sleep well at night and prefer to sleep in late in the morning. She also takes glaucoma eye drops at 0900 and inquires about adjusting her medication schedule to better fit her routine. Kalina reports that her blood pressure was 140/80 mmHg this morning, but she did not measure it yesterday. She is currently taking amlodipine 5 mg daily, losartan 50 mg daily, and metoprolol 50 mg daily. She recalls that during her second hospital admission, her metoprolol dosage was not increasedfor reasons she cannot remember. She also takes rosuvastatin 20 mg at bedtime and potassium supplements, which she describes as huge and difficult to swallow. Kalina has a follow-up appointment with her business applications manager on February 17, but she plans to switch to a local business applications manager due to insurance coverage issues. She expresses concern about her ability to afford her medications and medical bills, noting that she has been living comfortably on her currentincome but did not anticipate these medical expenses. Kalina also reports ongoing issues with eczema, for which she was prescribed a topical medication that she has not been using due to instructions from her first hospital discharge. She notes that her skin has been feeling better since she stopped using the medication. She does not currently use any lotions to keep her skin from getting dry. PAST MEDICAL HISTORY Diagnosis Date Dysthymic disorder Depression (non-psychotic) Essential hypertension, benign Generalized anxiety disorder Anxiety, Generalized Generalized osteoarthrosis, unspecified site Lichen sclerosus Myalgia and myositis, unspecified OSTEOPOROSIS NOS Osteoporosis, unspecified Current Outpatient Medications Medication Sig amLODIPine (NORVASC) 5 mg tablet Take 5 mg by mouth once daily. losartan (COZAAR) 50 mg tablet Take 50 mg by mouth once daily. aspirin, enteric coated (ASPIRIN, ENTERIC COATED) 81 mg EC tablet Take 1 tablet by mouth every afternoon. PLAVIX 75 mg tablet Take 75 mg by mouth once daily. 10 am isosorbide mononitrate ER (IMDUR) 30 mg 24 hr tablet Take 30 mg by mouth once daily. Before a meal metoprolol succinate ER (TOPROL XL) 50 mg 24 hr tablet Take 1 tablet by mouth once daily. gabapentin (NEURONTIN) 300 mg capsule TAKE 2 CAPSULES THREE TIMES DAILY DIRECTED crisaborole 2 % Apply to affected area two times a day. Apply a thin film to affected area(s) 2 times daily DULoxetine (CYMBALTA) 60 mg capsule Take 1 capsule by mouth once daily. omeprazole (PRILOSEC) 40 mg capsule Take 1 capsule by mouth once daily. dorzolamide HCl/PF (DORZOLAMIDE, PF,) 2 % drop Use 1 Drop in eyes three times daily. COMPOUNDED PRESCRIPTION Massage therapy Dx: Fibromyalgia, Arthritis rosuvastatin (CRESTOR) 20 mg tablet Take 1 tablet by mouth daily at bedtime. amLODIPine (NORVASC) 2.5 mg tablet Take 1 tablet by mouth once daily. as needed for a blood pressure 150/80 or greater. (Patient not taking: Reported on 01/27/2024) estradiol (ESTRACE) 0.01 % (0.1 mg/gram) vaginal cream Apply to urethral opening for atrophic vaginitis. Two to three times a week. clobetasol (TEMOVATE) 0.05 % ointment Actually gets compounded RX 0.07% through [facility] from [employer] to use twice weekly [employer] [facility] probiotics--Yeast and Vaginal PH support probiotic. Probiotic blend. Takes 1 by mouth at bedtime triamcinolone (KENALOG) 0.025 % ointment Apply 1 application to affected area twice daily as needed. uses near vaginal area (Patient not taking: Reported on 01/01/2024) glycerin-min oil-polycarbophil (REPLENS) gel Uses Replens cream 3 times weekly No current facility-administered medications for this visit. Review of Systems BP 140/80 Pulse 82 Temp 36.4 C (97.5 F) Resp 21 Wt 60.7 kg (133 lb 13.1 oz) SpO2 97% BMI 24.88 kg/m Last 5 Encounter Wt Readings: Date: Wt: 01/27/2024 60.7 kg (133 lb 13.1 oz) 01/01/2024 62.2 kg (137 lb 2 oz) 11/07/2023 63.1 kg (139 lb 1.8 oz) 11/02/2022 62.6 kg (138 lb) 01/15/2022 59.4 kg (131 lb) No waist measurement recorded Estimated body mass index is 24.88 kg/m as calculated from the following: Height as of 11/02/22: 156.2 cm (5' 1.5). Weight as of this encounter: 60.7 kg (133 lb 13.1 oz). Last 5 Encounter BP Readings: Date: BP: 01/27/2024 140/80 01/01/2024 157/59[bp average[ 11/07/2023 136/72 05/07/2023 138/58 11/02/2022 148/60 01/27/24 1156 01/27/24 1240 BP: 140/80 122/60 Pulse: 82 Resp: 21 Temp: 36.4 C (97.5 F) SpO2: 97% Weight: 60.7 kg (133 lb 13.1 oz) Physical Exam Constitutional: Appearance: Normal appearance. HENT: Head: Normocephalic. Eyes: Conjunctiva/sclera: Conjunctivae normal. Cardiovascular: Rate and Rhythm: Normal rate and regular rhythm. Heart sounds: Normal heart sounds. Pulmonary: Effort: Pulmonary effort is normal. Breath sounds: Normal breath sounds. Skin: General: Skin is warm and dry. Comments: Bruises on arms noted Neurological: General: No focal deficit present. Mental Status: She is alert and oriented to person, place, and time. Psychiatric: Mood and Affect: Mood normal. Behavior: Behavior normal. Thought Content: Thought content normal. Judgment: Judgment normal. Assessment and Plan # Coronary artery disease involving [place] coronary artery of [place] heart without angina pectoris (I25.10) # S/P angioplasty with stent (Z95.820) - Recent hospitalizations for myocardial infarction; underwent angioplasty with placement of three stents. - Currently on isosorbide mononitrate (Imdur) to prevent angina, taken at 0700. - Taking clopidogrel (Plavix) to prevent stent thrombosis, administered at 0930. - Follow-up with cardiology scheduled for February 17; patient advised to contact Dr. Good' office to schedule an appointment due to insurance coverage issues. - Blood pressure well-controlled with current regimen; readings improved from 157/59 mmHg to 122/60mmHg. - Advised to maintain hydration and a diet rich in healthy oils and collagen to support vascular health. # Essential hypertension (I10) - Managed with metoprolol 50 mg daily, amlodipine 5 mg daily, and losartan 50 mg daily. - Blood pressure readings stable; advised to continue current medication regimen. - Discussed adjusting medication administration times to align with patient's routine; omeprazole to be taken separately to enhance efficacy. - Follow-up with cardiology on February 17 to reassess medication dosages. # Pure hypercholesterolemia (E78.00) - Managed with rosuvastatin 20 mg at bedtime. - Continue current medication regimen. # Atopic dermatitis, unspecified type (L20.9) - Erythematous and irritated areas noted on the back of the neck and chest. - Previously prescribed crisaborole; patient reported increased pruritus with use. - Advised to discontinue crisaborole if it exacerbates symptoms. - Recommended use of bland, fragrance-free lotions such as CeraVe, Aveeno, Eucerin, or Lubriderm tomaintain skin hydration. - Discussed alternative emollients like coconut oil or beef tallow for severe dryness. # Fibromyalgia (M79.7) - Chronic condition; no acute exacerbation noted. - Continue current management. # Gastro-esophageal reflux disease without esophagitis (K21.9) - Managed with omeprazole, currently taken at 0700. - Advised to take omeprazole separately from other medications to enhance acid suppression. Karen Resendiz MD [facility] Discharge summary Date of Service 01/26/2024 Discharge Diagnosis #Hypertensive urgency, resolved Hospital Course 83-year-old female with past medical history of hypertension, hyperlipidemia, recent STEMI, multivessel coronary disease status post PCI with HAILEE to LAD, left circumflex, and OM1 and fibromyalgia presents emergency department on 01/25/2024 due to elevated blood pressure readings and troponin elevation. Patient was adjusted on blood pressure medications during stay. Patient now stable be discharged home on medications as prescribed. Patient follow-up primary care physician and primary business applications manager outpatient. Allergies sulfa drugs Pt unsure Consults Consult to Case Management/Social Service - Ordered -- 01/26/24 10:55:00 EST, Discharge Planning Consult to Case Management/Social Service (Consult to Case Management) - Ordered -- 01/26/24 10:41:16 EST Consult to Case Management/Social Service (Consult to Case Management) - Ordered -- 01/26/24 10:43:04 EST Physical Exam Vitals and Measurements T: 36 C (Oral) TMIN: 36 C (Oral) TMAX: 36.8 C (Oral) HR: 68 (Monitored) RR: 16 BP: 163/55 SpO2: 96% Weight Dosing Weight: 61.2 kg (01/25/24) General: AAOX3, NAD, elderly obese female HEENT: Anicteric sclera, MMM Neck: Trachea midline, no JVD appreciated CVS: RRR, normal S1/S2, no murmurs/rubs/gallops Lung: CTAB, no wheezes/rhonchi/rales Abd: Soft, NT/ND Extrem: WWP, no LE edema Skin: Warm, Intact Neuro: AAOX3, spontaneous movement of all extremities Psych: Appropriate mood & affect Pending Labs and Studies CMP 01/26/24 03:46 01/25/24 05:11 01/20/24 03:00 Glucose Level 98 mg/dL 84 mg/dL 102 mg/dL Sodium Level 140 mEq/L 141 mEq/L 138 mEq/L Potassium Level 4.2 mEq/L 3.6 mEq/L 3.9 mEq/L Chloride 110 mEq/L 110 mEq/L 107 mEq/L CO2 24 mEq/L 22 mEq/L 24 mEq/L Electrolyte Balance 6.0 mEq/L 9.0 mEq/L 7.0 mEq/L BUN 18.0 mg/dL 12.0 mg/dL 11.0 mg/dL Creatinine Lvl (s) 0.97 mg/dL 0.72 mg/dL 0.75 mg/dL BUN/Creatinine Ratio 18.6 ratio 16.7 ratio 14.7 ratio Calcium Lvl 9.2 mg/dL 9.2 mg/dL 9.0 mg/dL Total Protein 6.9 G/dL Albumin Level 3.1 G/dL L Globulin 3.8 G/dL A/G Ratio 0.8 ratio L Bili Total 0.90 mg/dL Alk Phos 98 U/L AST/SGOT 15 U/L ALT/SGPT 10 U/L GFR Non- 55 ml/min/1.73sqm >60 ml/min/1.73sqm >60 ml/min/1.73sqm GFR >60 ml/min/1.73sqm >60 ml/min/1.73sqm >60 ml/min/1.73sqm CBC 01/26/24 03:46 01/25/24 05:11 01/20/24 03:00 Hct 35.3 % 37.9 % 36.6 % Hgb 12.0 G/dL 12.7 G/dL 12.4 G/dL MCH 31.1 pg 31.0 pg 31.1 pg MCHC 33.9 G/dL 33.6 G/dL 33.9 G/dL MCV 91.7 fL 92.2 fL 91.6 fL MPV 7.8 fL 7.6 fL 8.5 fL Platelet 307 10^3/mcL 293 10^3/mcL 188 10^3/mcL RBC 3.85 10^6/mcL L 4.11 10^6/mcL 3.99 10^6/mcL L RDW 13.6 % 13.6 % 14.1 % WBC 6.5 10^3/mcL 6.7 10^3/mcL 9.6 10^3/mcL Cardiac Enzymes Cardiac Enzymes High Sensitivity Troponin I: 78 ng/L High (01/25/24 14:31:00) N-Terminal proBNP: 1874 pg/mL High (01/25/24 05:11:00) Lipids Lipids Cholesterol: 119 mg/dL (01/26/24 03:46:00) HDL Cholesterol: 40 mg/dL (01/26/24 03:46:00) LDL Cholesterol: 59 mg/dL (01/26/24 03:46:00) Triglycerides: 99 mg/dL (01/26/24 03:46:00) Code Status Code Status - Ordered -- 01/25/24 2:30:00 EST, Full Code, Constant Order Admission Date 01/25/2024 Discharge Date 01/26/2024 Patient Instructions - Please follow up with your Primary Care Physician (PCP) as soon as possible. - Please follow-up with all specialists as documented below. - Please keep all follow-up appointments. - Please take all medications as prescribed. - Please return for medical care if your condition worsens or changes. Medications New Prescription amLODIPine (amLODIPine 5 mg oral tablet)1 tab(s) by mouth once a day. Refills: 4. isosorbide mononitrate (isosorbide mononitrate 30 mg oral tablet, extended release)1 tab(s) by mouth once a day before a meal. Refills: 4. Changed losartan (losartan 50 mg oral tablet)1 tab(s) by mouth once a day. Refills: 3. Unchanged aspirin (aspirin 81 mg oral delayed release tablet)1 tab(s) by mouth once a day for 90 Days. Refills: 5. clopidogrel (Plavix 75 mg oral tablet)1 tab(s) by mouth once a day for 90 Days. Refills: 4. crisaborole topical (crisaborole 2% topical ointment)1 application Topical two (2) times a day. wash hands thoroughly after application. dorzolamide ophthalmic (dorzolamide 2% ophthalmic solution)1 Drops Both eyes three (3) times a day. DULoxetine (DULoxetine 60 mg oral delayed release capsule)1 cap by mouth once a day. gabapentin (gabapentin 300 mg oral capsule)1 cap by mouth three (3) times a day. metoprolol (metoprolol succinate 50 mg oral TABLET extended release)1 tab(s) by mouth once a day for 30 Days. Do not crush or chew (controlled release). Refills: 3. ocular lubricant (Dry Eye Relief ophthalmic solution)1 Drops Both eyes two (2) times a day as needed as needed for dry eyes. [id number] Milligram by mouth once a day. rosuvastatin (rosuvastatin 20 mg oral tablet)1 tab(s) by mouth daily at bedtime for 90 Days. Refills: 4. Follow Up Follow Up with KAREN RESENDIZ MD When:Within 1-2 days Where:[address] [place] [address]- Follow Up with RODRIGO HAYES MD When:In 1 week Where:[address] [facility] [address] [facility] [place] [address]- [phone] Follow Up Appointments No qualifying data available. Follow Up Labs/Studies Discharge Labs No Follow-up Labs Discharge Studies No Follow-up Studies Discharge Diet Discharge Diet - Ordered -- Type of Diet: Cardiac, No changes were made to your diet during your hospital stay. Please resume your pre hospitalization diet on discharge., 01/26/24 10:55:00 EST Discharge Activity Discharge Activity - Ordered -- NO activity restrictions, 01/26/24 10:55:00 EST Condition on Discharge Stable Discharge Disposition Home Digitally Signed by KENNY KWAN MD on 01/26/2024 12:[address] [id number] History and physical note Date of Service 01/25/2024 Chief Complaint Hypertensive Urgency Elevated Troponin History of Present Illness 83-year-old female with past medical history of recent STEMI status post PCI to OM1, left circumflex, mid LAD, hypertension, hyperlipidemia, chronic pain who presents for high blood pressure readings. Patient states that her blood pressure has been high over the last few days up into the 190s systolic. Because of her high blood pressure she was concerned and presented to the ED. She denied any chest pain, chest discomfort, shortness of breath, dyspnea on exertion. Upon arrival to the ED, patient was hypertensive to the 180s systolic but otherwise hemodynamicallystable. While in the ED, she began having some chest and back discomfort. She was given IV pain medication and a Nitropatch which reduced the pain. Labs significant for sodium 139, potassium 3.9, creatinine 0.85, troponin in the 334-> 288-> 250, BNP unable to be obtained. D-dimer elevated. CTA chest negative for PE or aortic dissection, did demonstrate emphysema with mild ground-glass opacities. Chest x-ray negative for any acute cardiopulmonary processes. Given her recent STEMI and stent placements, she was transferred to [facility] for further evaluation. Upon arrival to the CCU, patient was hypertensive. Denied any chest pain. EKG demonstrating normal sinus rhythm with a PVC and no significant ST segment changes when compared to prior. Review of Systems Per HPI, Complete ROS otherwise negative Physical Exam Vitals and Measurements T: 36.9 C (Oral) HR: 82 (Monitored) HR: 82 (Apical) RR: 18 BP: 190/68 SpO2: 99% HT: 157.6 cm WT: 61.2 kg BMI: 24.64 Weight Dosing Weight: 61.2 kg (01/25/24) General: AAOX3, NAD HEENT: Anicteric sclera, MMM Neck: Trachea midline, no JVD appreciated CVS: RRR, normal S1/S2, no murmurs/rubs/gallops Lung: CTAB, no wheezes/rhonchi/rales Abd: Soft, NT/ND Extrem: WWP, no LE edema Skin: Warm, Intact Neuro: AAOX3, spontaneous movement of all extremities Psych: Appropriate mood & affect Lab Results No 36 Hour Lab Data Imaging Results and Diagnostics CTA chest negative for PE or aortic dissection, did demonstrate emphysema with mild ground-glass opacities. Chest x-ray negative for any acute cardiopulmonary processes. Assessment/Plan Hypertensive urgency Elevated troponin in the setting of recent stent placement and hypertension Recent STEMI status post PCI to OM1, left circumflex, mid LAD Hypertension Hyperlipidemia Chronic pain CVC: Dr. Hayes Patient states that her blood pressure has been high over the last few days up into the 190s systolic. Because of her high blood pressure she was concerned and presented to the ED. She denied any chest pain, chest discomfort, shortness of breath, dyspnea on exertion. Upon arrival to the ED, patient was hypertensive to the 180s systolic but otherwise hemodynamicallystable. While in the ED, she began having some chest and back discomfort. She was given IV pain medication and a Nitropatch which reduced the pain. Labs significant for sodium 139, potassium 3.9, creatinine 0.85, troponin in the 334-> 288-> 250, BNP unable to be obtained. D-dimer elevated. CTA chest negative for PE or aortic dissection, did demonstrate emphysema with mild ground-glass opacities. Given her recent STEMI and stent placements, she was transferred to [facility] for further evaluation. Upon arrival to the CCU, patient was hypertensive. Denied any chest pain. EKG demonstrating normal sinus rhythm with a PVC and no significant ST segment changes when compared to prior. Last echo 01/20/2024: EF 55 to 60% with no regional wall motion abnormalities, grade 1 diastolic dysfunction, mild to moderate aortic valve regurgitation. Plan: Reinitiate home metoprolol 50 mg daily, increase home losartan to 50 mg daily Start amlodipine 5 mg daily Continue aspirin and Plavix Trend troponin Obtain new labs Problem List/Past Medical History Ongoing Anxiety Chest pain due to CAD Eczema Fibromyalgia Procedure/Surgical History No qualifying data available. Medications Home Medications (11) Active aspirin 81 mg oral delayed release tablet 81 mg = 1 tab(s), Oral, qDay crisaborole 2% topical ointment 1 sammy, Topical, BID dorzolamide 2% ophthalmic solution 1 drop(s), Eyes, both, TID Dry Eye Relief ophthalmic solution 1 drop(s), PRN, Eyes, both, BID DULoxetine 60 mg oral delayed release capsule 60 mg = 1 cap(s), Oral, qDay gabapentin 300 mg oral capsule 300 mg = 1 cap(s), Oral, TID losartan 25 mg oral tablet 25 mg = 1 tab(s), Oral, qDay metoprolol succinate 50 mg oral TABLET extended release 50 mg = 1 tab(s), Oral, qDay omeprazole 40 mg, Oral, qDay Plavix 75 mg oral tablet 75 mg = 1 tab(s), Oral, qDay rosuvastatin 20 mg oral tablet 20 mg = 1 tab(s), Oral, qHS Allergies sulfa drugs Pt unsure Immunizations No qualifying data available. Code Status Code Status - Ordered -- 01/25/24 2:30:00 EST, Full Code, Constant Order Digitally Signed by HESHAM ORTIZ MD on 01/26/2024 08:[address] [id number] NoteHNO ID: [id number] Author: HERMILA GONSALVES RN Service: ? Author Type: Registered Nurse Type: Progress Notes Filed: 01/26/2024 15:08 Note Text: ACM LUCIAN RN Patient identified by name and date of . Reason for review or outreach: Chart Review [facility] Utilization REQUESTED ACTION/FYI: A follow-up appointment is noted to be scheduled on 01-27-24. Exclusion Criteria - Does not meet exclusion criteria Utilization in past 6 months: # Occurrences Date Last Occurrence Hospital Admission 01-17-24 [facility] Observation - N/A ED 01-24-24 SNF / Acute Rehab / LTAC - N/A ED DIAGNOSES/REASON(S) FOR ED USE: IMPRESSION: 1. COPD/emphysema with mild groundglass edema either due to developing volume overload or pneumonitis 2. No demonstrated pulmonary embolism or arterial dissection. At this point time we will discuss the case with [facility] for further evaluation management. I called and discussed case with Dr. Gerson Ly who states that he would recommend transferring the patient back to [facility] for further evaluation management given her recent heart catheterization with PCI intervention. I did notify the patient and significant other at bedside who is agreeable with this plan. Patient's blood pressure did improved to 163/52 after 0.1 mg of clonidine was given. Once again the patient took her aspirin, Plavix As well as the rest of her prescribed medications prior to arrival. Lab Data CC: Dr. Karen Resendiz MD; Dr. Mejia Shah DO ~ Poster: Signed OTHER FINDINGS/SUMMARY: Patient Attributed To: ARGENTINA Payer: Pedro MONROY Action Taken: Referrals/Routed: none Contact made with patient: No, Chart review only. Signature: Hermila Gonsalves RN To: TALIBE Payer: Pedro MONROY Action Taken: Referrals/Routed: Contact made with patient: No, Chart review only. Signature: [facility] History of Present illness Narrative* Hermila Gonsalves RN - 01/26/2024 3:00 PM EST ACM LUCIAN RN Patient identified by name and date of . Reason for review or outreach: Chart Review [facility] Utilization REQUESTED ACTION/FYI: A follow-up appointment is noted to be scheduled on 01-27-24. Exclusion Criteria - Does not meet exclusion criteria Utilization in past 6 months: # Occurrences Date Last Occurrence Hospital Admission 1 01-17-24 [facility] Observation - N/A ED 1 01-24-24 SNF / Acute Rehab / LTAC - N/A ED DIAGNOSES/REASON(S) FOR ED USE: IMPRESSION: 1. COPD/emphysema with mild groundglass edema either due to developing volume overload or pneumonitis 2. No demonstrated pulmonary embolism or arterial dissection. At this point time we will discuss the case with [facility] for further evaluation management. I called and discussed case with Dr. Gerson Ly who states that he would recommend transferring the patient back to [facility] for further evaluation management given her recent heart catheterization with PCI intervention. I did notify the patient and significant other at bedside who is a greeable with this plan. Patient's blood pressure did improved to 163/52 after 0.1 mg of clonidine was given. Once again the patient took her aspirin, Plavix As well as the rest of her prescribed medications prior to arrival. Lab Data CC: Dr. Karen Resendiz MD; Dr. Mejia Shah DO ~ Poster: Signed OTHER FINDINGS/SUMMARY: Patient Attributed To: ARGENTINA Payer: Pedro MONROY Action Taken: Referrals/Routed: none Contact made with patient: No, Chart review only. Signature: Hermila Gonsalves RN To: ARGENTINA Payer: Pedro MONROY Action Taken: Referrals/Routed: Contact made with patient: No, Chart review only. Signature: Hermila Gonsalves RN documented in [facility] Hospital Discharge instructions Patient Education 01/26/2024 11:19:26 Angina, [id number] Angina Angina is very bad discomfort or pain in the chest, neck, arm, jaw, or back. The discomfort is caused by a lack of blood in the middle layer of the heart wall (myocardium). What are the causes? This condition is caused by a buildup of fat and cholesterol (plaque) in your arteries (atherosclerosis). This buildup narrows the arteries and makes it hard for blood to flow. What increases the risk? You are more likely to develop this condition if: You have high levels of cholesterol in your blood. You have high blood pressure (hypertension). You have diabetes. You have a family history of heart disease. You are not active, or you do not exercise enough. You feel sad (depressed). You have been treated with high energy rays (radiation) on the left side of your chest. Other risk factors are: Using tobacco. Being very overweight (obese). Eating a diet high in unhealthy fats (saturated fats). Having stress, or being exposed to things that cause stress. Using drugs, such as cocaine. Women have a greater risk for angina if: They are older than 55. They have stopped having their period (are in postmenopause). What are the signs or symptoms? Common symptoms of this condition in both men and women may include: Chest pain, which may: ?Feel like a crushing or squeezing in the chest. ?Feel like a tightness, pressure, fullness, or heaviness in the chest. ?Last for more than a few minutes at a time. ?Stop and come back (recur) after a few minutes. Pain in the neck, arm, jaw, or back. Heartburn or upset stomach (indigestion) for no reason. Being short of breath. Feeling sick to your stomach (nauseous). Sudden cold sweats. Women and people with diabetes may have other symptoms that are not usual, such as feeling: Tired (fatigue). Worried or nervous (anxious) for no reason. Weak for no reason. Dizzy or passing out (fainting). How is this treated? This condition may be treated with: Medicines. These are given to: ?Prevent blood clots. ?Prevent heart attack. ?Relax blood vessels and improve blood flow to the heart (nitrates). ?Reduce blood pressure. ?Improve the pumping action of the heart. ?Reduce fat and cholesterol in the blood. A procedure to widen a narrowed or blocked artery in the heart (angioplasty). Surgery to allow blood to go around a blocked artery (coronary artery bypass surgery). Follow these instructions at home: Medicines Take [id number] and prescription medicines only as told by your doctor. Do not take these medicines unless your doctor says that you can: ?NSAIDs. These include: ?Ibuprofen. ?Naproxen. ?Vitamin supplements that have vitamin A, vitamin E, or both. ?Hormone therapy that contains estrogen with or without progestin. Eating and drinking Eat a heart-healthy diet that includes: ?Lots of fresh fruits and vegetables. ?Whole grains. ?Low-fat (lean) protein. ?Low-fat dairy products. Follow instructions from your doctor about what you cannot eat or drink. Activity Follow an exercise program that your doctor tells you. Talk with your doctor about joining a program to help improve the health of your heart (cardiac rehab). When you feel tired, take a break. Plan breaks if you know you are going to feel tired. Lifestyle Do not use any products that contain nicotine or tobacco. This includes cigarettes, e-cigarettes, and chewing tobacco. If you need help quitting, ask your doctor. If your doctor says you can drink alcohol: ?Limit how much you use to: ?0 1 drink a day for women who are not . ? 0 2 drinks a day for men. ?Be aware of how much alcohol is in your drink. In the [place] one drink equals: ?One 12 oz bottle of beer (355 mL). ?One 5 oz glass of wine (148 mL). ?One 1 oz glass of hard liquor (44 mL). General instructions Stay at a healthy weight. If your doctor tells you to do so, work with him or her to lose weight. Learn to deal with stress. If you need help, ask your doctor. Keep your vaccines up to date. Get a flu shot every year. Talk with your doctor if you feel sad. Take a screening test to see if you are at risk for depression. Work with your doctor to manage any other health problems that you have. These may include diabetesor high blood pressure. Keep all follow-up visits as told by your doctor. This is important. Get help right away if: You have pain in your chest, neck, arm, jaw, or back, and the pain: ?Lasts more than a few minutes. ?Comes back. ?Does not get better after you take medicine under your tongue (sublingual nitroglycerin). ?Keeps getting worse. ?Comes more often. You have any of these problems for no reason: ?Sweating a lot. ?Heartburn or upset stomach. ?Shortness of breath. ?Trouble breathing. ?Feeling sick to your stomach. ?Throwing up (vomiting). ?Feeling more tired than normal. ?Feeling nervous or worrying more than normal. ?Weakness. You are suddenly dizzy or light-headed. You pass out. These symptoms may be an emergency. Do not wait to see if the symptoms will go away. Get medical help right away. Call your local emergency services (911 in the [place] Do not drive yourself to the hospital. Summary Angina is very bad discomfort or pain in the chest, neck, arm, neck, or back. Symptoms include chest pain, heartburn or upset stomach for no reason, and shortness of breath. Women or people with diabetes may have symptoms that are not usual, such as feeling nervous or worried for no reason, weak for no reason, or tired. Take all medicines only as told by your doctor. You should eat a heart-healthy diet and follow an exercise program. This information is not intended to replace advice given to you by your health care provider. Make sure you discuss any questions you have with your health care provider. Document Released: 07/15/2008 Document Revised: 09/14/2018 Document Reviewed: 09/14/2018 [employer] Patient Education 2020 [employer]. Follow Up Care 01/24/2024 15:14:13 With:KAREN RESENDIZ MD Address: [address] [place] [address]- When:1-2 days With:RODRIGO HAYES MD Address: [address] [facility] [address] [facility] [place] [address]- [phone] When:Within 1 Week(s) [facility] 12-16-2024 Discharge summary Date of Service 01/26/2024 Discharge Diagnosis #Hypertensive urgency, resolved Hospital Course 83-year-old female with past medical history of hypertension, hyperlipidemia, recent STEMI, multivessel coronary disease status post PCI with HAILEE to LAD, left circumflex, and OM1 and fibromyalgia presents emergency department on 01/25/2024 due to elevated blood pressure readings and troponin elevation. Patient was adjusted on blood pressure medications during stay. Patient now stable be discharged home on medications as prescribed. Patient follow-up primary care physician and primary business applications manager outpatient. Allergies sulfa drugs Pt unsure Consults Consult to Case Management/Social Service - Ordered -- 01/26/24 10:55:00 EST, Discharge Planning Consult to Case Management/Social Service (Consult to Case Management) - Ordered -- 01/26/24 10:41:16 EST Consult to Case Management/Social Service (Consult to Case Management) - Ordered -- 01/26/24 10:43:04 EST Physical Exam Vitals and Measurements T: 36 C (Oral) TMIN: 36 C (Oral) TMAX: 36.8 C (Oral) HR: 68 (Monitored) RR: 16 BP: 163/55 SpO2: 96% Weight Dosing Weight: 61.2 kg (01/25/24) General: AAOX3, NAD, elderly obese female HEENT: Anicteric sclera, MMM Neck: Trachea midline, no JVD appreciated CVS: RRR, normal S1/S2, no murmurs/rubs/gallops Lung: CTAB, no wheezes/rhonchi/rales Abd: Soft, NT/ND Extrem: WWP, no LE edema Skin: Warm, Intact Neuro: AAOX3, spontaneous movement of all extremities Psych: Appropriate mood & affect Pending Labs and Studies CMP 01/26/24 03:46 01/25/24 05:11 01/20/24 03:00 Glucose Level 98 mg/dL 84 mg/dL 102 mg/dL Sodium Level 140 mEq/L 141 mEq/L 138 mEq/L Potassium Level 4.2 mEq/L 3.6 mEq/L 3.9 mEq/L Chloride 110 mEq/L 110 mEq/L 107 mEq/L CO2 24 mEq/L 22 mEq/L 24 mEq/L Electrolyte Balance 6.0 mEq/L 9.0 mEq/L 7.0 mEq/L BUN 18.0 mg/dL 12.0 mg/dL 11.0 mg/dL Creatinine Lvl (s) 0.97 mg/dL 0.72 mg/dL 0.75 mg/dL BUN/Creatinine Ratio 18.6 ratio 16.7 ratio 14.7 ratio Calcium Lvl 9.2 mg/dL 9.2 mg/dL 9.0 mg/dL Total Protein 6.9 G/dL Albumin Level 3.1 G/dL L Globulin 3.8 G/dL A/G Ratio 0.8 ratio L Bili Total 0.90 mg/dL Alk Phos 98 U/L AST/SGOT 15 U/L ALT/SGPT 10 U/L GFR Non- 55 ml/min/1.73sqm >60 ml/min/1.73sqm >60 ml/min/1.73sqm GFR >60 ml/min/1.73sqm >60 ml/min/1.73sqm >60 ml/min/1.73sqm CBC 01/26/24 03:46 01/25/24 05:11 01/20/24 03:00 Hct 35.3 % 37.9 % 36.6 % Hgb 12.0 G/dL 12.7 G/dL 12.4 G/dL MCH 31.1 pg 31.0 pg 31.1 pg MCHC 33.9 G/dL 33.6 G/dL 33.9 G/dL MCV 91.7 fL 92.2 fL 91.6 fL MPV 7.8 fL 7.6 fL 8.5 fL Platelet 307 10^3/mcL 293 10^3/mcL 188 10^3/mcL RBC 3.85 10^6/mcL L 4.11 10^6/mcL 3.99 10^6/mcL L RDW 13.6 % 13.6 % 14.1 % WBC 6.5 10^3/mcL 6.7 10^3/mcL 9.6 10^3/mcL Cardiac Enzymes Cardiac Enzymes High Sensitivity Troponin I: 78 ng/L High (01/25/24 14:31:00) N-Terminal proBNP: 1874 pg/mL High (01/25/24 05:11:00) Lipids Lipids Cholesterol: 119 mg/dL (01/26/24 03:46:00) HDL Cholesterol: 40 mg/dL (01/26/24 03:46:00) LDL Cholesterol: 59 mg/dL (01/26/24 03:46:00) Triglycerides: 99 mg/dL (01/26/24 03:46:00) Code Status Code Status - Ordered -- 01/25/24 2:30:00 EST, Full Code, Constant Order Admission Date 01/25/2024 Discharge Date 01/26/2024 Patient Instructions - Please follow up with your Primary Care Physician (PCP) as soon as possible. - Please follow-up with all specialists as documented below. - Please keep all follow-up appointments. - Please take all medications as prescribed. - Please return for medical care if your condition worsens or changes. Medications New Prescription amLODIPine (amLODIPine 5 mg oral tablet)1 tab(s) by mouth once a day. Refills: 4. isosorbide mononitrate (isosorbide mononitrate 30 mg oral tablet, extended release)1 tab(s) by mouth once a day before a meal. Refills: 4. Changed losartan (losartan 50 mg oral tablet)1 tab(s) by mouth once a day. Refills: 3. Unchanged aspirin (aspirin 81 mg oral delayed release tablet)1 tab(s) by mouth once a day for 90 Days. Refills: 5. clopidogrel (Plavix 75 mg oral tablet)1 tab(s) by mouth once a day for 90 Days. Refills: 4. crisaborole topical (crisaborole 2% topical ointment)1 application Topical two (2) times a day. wash hands thoroughly after application. dorzolamide ophthalmic (dorzolamide 2% ophthalmic solution)1 Drops Both eyes three (3) times a day. DULoxetine (DULoxetine 60 mg oral delayed release capsule)1 cap by mouth once a day. gabapentin (gabapentin 300 mg oral capsule)1 cap by mouth three (3) times a day. metoprolol (metoprolol succinate 50 mg oral TABLET extended release)1 tab(s) by mouth once a day for 30 Days. Do not crush or chew (controlled release). Refills: 3. ocular lubricant (Dry Eye Relief ophthalmic solution)1 Drops Both eyes two (2) times a day as needed as needed for dry eyes. [id number] Milligram by mouth once a day. rosuvastatin (rosuvastatin 20 mg oral tablet)1 tab(s) by mouth daily at bedtime for 90 Days. Refills: 4. Follow Up Follow Up with KAREN RESENDIZ MD When:Within 1-2 days Where:[address] [address]- Follow Up with RODRIGO HAYES MD When:In 1 week Where:[address] [facility] [address] [facility] [place] [phone] Follow Up Appointments No qualifying data available. Follow Up Labs/Studies Discharge Labs No Follow-up Labs Discharge Studies No Follow-up Studies Discharge Diet Discharge Diet - Ordered -- Type of Diet: Cardiac, No changes were made to your diet during your hospital stay. Please resume your pre hospitalization diet on discharge., 01/26/24 10:55:00 EST Discharge Activity Discharge Activity - Ordered -- NO activity restrictions, 01/26/24 10:55:00 EST Condition on Discharge Stable Discharge Disposition Home Digitally Signed by KENNY KWAN MD on 01/26/2024 12:[address] [id number] Note Discharge Instructions Thank you for allowing [facility] to assist you with your healthcare needs. The following is importantdischarge information regarding your hospital visit. Your Care Team KAREN RESENDIZ MD What to do next Scheduled Follow-Up Appointments Appointment Type When With Where Contact Information StatusCV Hospital Follow Up 02/18/2024 11:30 AM SAMANTHA CORBIN [facility] Confirmed Follow Up Appointments Follow Up with KAREN RESENDIZ MD When:Within 1-2 days Where:[address] [facility] [address] [place] [address]- Follow Up with RODRIGO HAYES MD When:In 1 week Where:[address] [facility] [place] [address]- [phone] The Following Activity and Diet Have Been Ordered for You Discharge Activity - Ordered -- NO activity restrictions, 01/26/24 10:55:00 EST Discharge Diet - Ordered -- Type of Diet: Cardiac, No changes were made to your diet during your hospital stay. Please resume your pre hospitalization diet on discharge., 01/26/24 10:55:00 EST The Following Equipment Has Been Ordered for You No qualifying data available. The Following Treatments Have Been Ordered for You Discharge Labs No qualifying data available. Discharge Radiology No qualifying data available. Other Therapies No qualifying data available. Post Acute Orders No qualifying data available. Someone Will Contact You Regarding These Home Health Referrals No home referrals have been ordered for you. No one will call you. Allergies sulfa drugs Pt unsure Medications Please ask your primary doctor or pharmacist before taking any other medication not listed, including over the counter drugs, herbal medications, vitamins and or supplements as they may interact withyour home medications. What How Much When Instructions Last Dose New amLODIPine (amLODIPine 5 mg oral tablet) 1 tab(s) by mouth Once a day Refills: 4 Pickup at [facility] New isosorbide mononitrate (isosorbide mononitrate 30 mg oral tablet, extended release) 1 tab(s) by mouth Once a day before a meal Refills: 4 Pickup at [facility] Changed losartan (losartan 50 mg oral tablet) 1 tab(s) by mouth Once a day Pickup at [facility] Unchanged aspirin (aspirin 81 mg oral delayed release tablet) 1 tab(s) by mouth Once a day Duration: 90 Days Unchanged clopidogrel (Plavix 75 mg oral tablet) 1 tab(s) by mouth Once a day Duration: 90 Days Unchanged crisaborole topical (crisaborole 2% topical ointment) 1 application Topical Two (2) times a day wash hands thoroughly after application Unchanged dorzolamide ophthalmic (dorzolamide 2% ophthalmic solution) 1 Drops Both eyes Three (3) times a day Unchanged DULoxetine (DULoxetine 60 mg oral delayed release capsule) 1 cap by mouth Once a day Unchanged gabapentin (gabapentin 300 mg oral capsule) 1 cap by mouth Three (3) times a day Unchanged metoprolol (metoprolol succinate 50 mg oral TABLET extended release) 1 tab(s) by mouth Once a day Duration: 30 Days Do not crush or chew (controlled release) Unchanged ocular lubricant (Dry Eye Relief ophthalmic solution) 1 Drops Both eyes Two (2) times a day as needed for as needed for dry eyes Unchanged omeprazole 40 Milligram by mouth Once a day Unchanged rosuvastatin (rosuvastatin 20 mg oral tablet) 1 tab(s) by mouth Daily at bedtime Duration: 90 Days Pharmacy Information [facility] 074: [address] [place], [place] [phone] Please take this list to your next doctor s visit. Bring all medications you take, including over the counter medications, herbals and other supplements with you to your doctor s visit. Patients and families are reminded to discard old lists and to update any records with all medication providers or retail pharmacies. Education Materials Angina Angina is very bad discomfort or pain in the chest, neck, arm, jaw, or back. The discomfort is caused by a lack of blood in the middle layer of the heart wall (myocardium). What are the causes? This condition is caused by a buildup of fat and cholesterol (plaque) in your arteries (atherosclerosis). This buildup narrows the arteries and makes it hard for blood to flow. What increases the risk? You are more likely to develop this condition if: You have high levels of cholesterol in your blood. You have high blood pressure (hypertension). You have diabetes. You have a family history of heart disease. You are not active, or you do not exercise enough. You feel sad (depressed). You have been treated with high energy rays (radiation) on the left side of your chest. Other risk factors are: Using tobacco. Being very overweight (obese). Eating a diet high in unhealthy fats (saturated fats). Having stress, or being exposed to things that cause stress. Using drugs, such as cocaine. Women have a greater risk for angina if: They are older than 55. They have stopped having their period (are in postmenopause). What are the signs or symptoms? Common symptoms of this condition in both men and women may include: Chest pain, which may: ? Feel like a crushing or squeezing in the chest. ? Feel like a tightness, pressure, fullness, or heaviness in the chest. ? Last for more than a few minutes at a time. ? Stop and come back (recur) after a few minutes. Pain in the neck, arm, jaw, or back. Heartburn or upset stomach (indigestion) for no reason. Being short of breath. Feeling sick to your stomach (nauseous). Sudden cold sweats. Women and people with diabetes may have other symptoms that are not usual, such as feeling: Tired (fatigue). Worried or nervous (anxious) for no reason. Weak for no reason. Dizzy or passing out (fainting). How is this treated? This condition may be treated with: Medicines. These are given to: ? Prevent blood clots. ? Prevent heart attack. ? Relax blood vessels and improve blood flow to the heart (nitrates). ? Reduce blood pressure. ? Improve the pumping action of the heart. ? Reduce fat and cholesterol in the blood. A procedure to widen a narrowed or blocked artery in the heart (angioplasty). Surgery to allow blood to go around a blocked artery (coronary artery bypass surgery). Follow these instructions at home: Medicines Take [id number] and prescription medicines only as told by your doctor. Do not take these medicines unless your doctor says that you can: ? NSAIDs. These include: ? Ibuprofen. ? Naproxen. ? Vitamin supplements that have vitamin A, vitamin E, or both. ? Hormone therapy that contains estrogen with or without progestin. Eating and drinking Eat a heart-healthy diet that includes: ? Lots of fresh fruits and vegetables. ? Whole grains. ? Low-fat (lean) protein. ? Low-fat dairy products. Follow instructions from your doctor about what you cannot eat or drink. Activity Follow an exercise program that your doctor tells you. Talk with your doctor about joining a program to help improve the health of your heart (cardiac rehab). When you feel tired, take a break. Plan breaks if you know you are going to feel tired. Lifestyle Do not use any products that contain nicotine or tobacco. This includes cigarettes, e-cigarettes, and chewing tobacco. If you need help quitting, ask your doctor. If your doctor says you can drink alcohol: ? Limit how much you use to: ? 0 1 drink a day for women who are not . ? 0 2 drinks a day for men. ? Be aware of how much alcohol is in your drink. In the [place] one drink equals: ? One 12 oz bottle of beer (355 mL). ? One 5 oz glass of wine (148 mL). ? One 1 oz glass of hard liquor (44 mL). General instructions Stay at a healthy weight. If your doctor tells you to do so, work with him or her to lose weight. Learn to deal with stress. If you need help, ask your doctor. Keep your vaccines up to date. Get a flu shot every year. Talk with your doctor if you feel sad. Take a screening test to see if you are at risk for depression. Work with your doctor to manage any other health problems that you have. These may include diabetesor high blood pressure. Keep all follow-up visits as told by your doctor. This is important. Get help right away if: You have pain in your chest, neck, arm, jaw, or back, and the pain: ? Lasts more than a few minutes. ? Comes back. ? Does not get better after you take medicine under your tongue (sublingual nitroglycerin). ? Keeps getting worse. ? Comes more often. You have any of these problems for no reason: ? Sweating a lot. ? Heartburn or upset stomach. ? Shortness of breath. ? Trouble breathing. ? Feeling sick to your stomach. ? Throwing up (vomiting). ? Feeling more tired than normal. ? Feeling nervous or worrying more than normal. ? Weakness. You are suddenly dizzy or light-headed. You pass out. These symptoms may be an emergency. Do not wait to see if the symptoms will go away. Get medical help right away. Call your local emergency services (911 in the [place] Do not drive yourself to the hospital. Summary Angina is very bad discomfort or pain in the chest, neck, arm, neck, or back. Symptoms include chest pain, heartburn or upset stomach for no reason, and shortness of breath. Women or people with diabetes may have symptoms that are not usual, such as feeling nervous or worried for no reason, weak for no reason, or tired. Take all medicines only as told by your doctor. You should eat a heart-healthy diet and follow an exercise program. This information is not intended to replace advice given to you by your health care provider. Make sure you discuss any questions you have with your health care provider. Document Released: 07/15/2008 Document Revised: 09/14/2018 Document Reviewed: 09/14/2018 Elsevier Patient Education 2020 [employer] Additional Information VACCINATE! IT SAVES LIVES! Members of the community who have not yet received the COVID-19 vaccine and would like to receive it can visit one of [facility] vaccine clinics. There are many vaccine clinic locations within the [facility]. For locations and available times, please visit [email or web address].[place].gov/. It is important to note that some COVID mobile vaccine clinics are held outdoors and may be canceled in rainy or stormy conditions. To learn more about pediatric vaccinations (ages 5-11), we invite you to visit the [employer] webpage. https://www.[employer].org/pages/5467-Htbnu-Egseyssmayz-Cyvvfvoskd-Luqzm-Dri stions.htmlTo learn more about the COVID-19 vaccine, we invite you to visit the CDC website for a list of frequently asked questions.https://www.cdc.gov/coronavirus/2019-ncov/vaccines/faq.html [facility] Patient Portal Access Instructions: Stay connected with your healthcare team and access your personal medical information anytime with the [facility] Patient Portal. Please follow the directions below to create your [facility] account: 1.Access the email account you provided upon registration to the hospital/physician office.2.Look for an invitation email from [facility].3.Open the email and access the invitation link: AcceptInvitation to Se[facility].4.Fill in the required antony to create your account. To access your account, visit [email or web address]. Click the blue button labeled Access Patient Portal and then log in with the username and password that you created in the steps above. You will be able to view your test results, lab results, a summary of your visits, upcoming appointments and more. There is also a convenient messaging option where you can send secure messages to your p rovider. In addition, you will have the ability to download any documents or summaries to your computer and/or send the information securely to a physician. Remember that your healthcare information is confidential, so carefully consider who you will allowto register on the [facility] Patient Portal for access to your information. You can also access the [facility] on the [facility] sammy. Simply click on Patient Portal and then log into your account. If you would like to receive a full copy of your medical records, please contact the [facility] Medical Records Department by calling [phone], Friday through Friday between 8 a.m. and 4:30 p.m. HOW TO SAFELY DISPOSE OF PRESCRIPTION MEDICATIONS Please use one of the following methods to safely dispose of your unused medications. 1.Use a drug disposal kit: the drug disposal pouch allows you to safely discard your old and unuseddrugs. Ask your nurse to give you one when you are discharged.2.Visit a local take-back location: Many local pharmacies and police departments have programs that collect old and unwanted prescriptiondrugs. Call your local pharmacy or go to http://Purewire/4R3Wa4i to find one close to you.3.Make use of household items: Use cat litter or old coffee grounds to dispose medications if other options arenot available. Mix your drugs with these household products, seal them in an airtight container andthrow it into the garbage. Call [facility]: [phone] to be sure your drugs can be disposed of in this way. Some medicines may require a different approach.4.Never flush your medications down the toilet. IF YOU HAVE BEEN PRESCRIBED AN OPIOID FOR PAIN If you have been prescribed an opioid (such as hydrocodone, oxycodone or morphine), it is critical to understand the possible side effects and risks of opioid pain medications. Even when taken as directed, opioids can have several side effects including: Tolerance, meaning you might need to take more of a medication for the same pain relief. Nausea, vomiting and/or constipation. Sleepiness, dizziness, dry mouth, confusion, depression or itching. Physical dependence, meaning you have withdrawal symptoms when a medication is stopped, can develop within a few days. KNOW YOUR RESPONSIBILITIES It is important to know exactly how much and how often to take the opioid pain medications you are prescribed. Never take opioids in higher amounts or more often than prescribed. Do not combine opioids with alcohol or other drugs that cause drowsiness, such as benzodiazepines, also known as benzos, including diazepam and alprazolam, muscle relaxants or sleep aids. Never sell or share prescription opioids. This is illegal. Store opioids in a secure place and out of reach of others (including children, family, friends and visitors). The last page of this document has been signed and retained as a CHART COPY. Signatures Patient Education Materials Angina, [id number] Medication Leaflets My discharge plan and instructions have been reviewed and explained to me and I,KALINA RUDD understand my current condition and have read and understand these discharge instructions. I have received a written copy of the plan/instructions. If I have questions, I am aware that I should contactmy doctor. Patient/Roving Hand Signature: Date/Time: Relationship to Patient: Witness Name/Signature: Date/Time: [id number] NotePatient Outreach ([facility]) KALINA RUDD ([id number]) 1940 F T Date Time Provider Department 01/26/24 HERMILA GONSALVES [facility] During your visit today, we recorded the following information about you: Hermila Gonsalves RN 01/26/2024 3:08 PM Signed ACM LUCIAN RN Patient identified by name and date of . Reason for review or outreach: Chart Review [facility] Emergency Department Utilization REQUESTED ACTION/FYI: A follow-up appointment is noted to be scheduled on 01-27-24. Exclusion Criteria - Does not meet exclusion criteria Utilization in past 6 months: # Occurrences Date Last Occurrence Hospital Admission 1 01-17-24 [facility] Observation - N/A ED 1 01-24-24 SNF / Acute Rehab / LTAC - N/A ED DIAGNOSES/REASON(S) FOR ED USE: IMPRESSION: 1. COPD/emphysema with mild groundglass edema either due to developing volume overload or pneumonitis 2. No demonstrated pulmonary embolism or arterial dissection. At this point time we will discuss the case with [facility] for further evaluation management. I called and discussed case with Dr. Gerson Ly who states that he would recommend transferring the patient back to [facility] for further evaluation management given her recent heart catheterization with PCI intervention. I did notify the patient and significant other at bedside who is agreeable with this plan. Patient's blood pressure did improved to 163/52 after 0.1 mg of clonidine was given. Once again the patient took her aspirin, Plavix As well as the rest of her prescribed medications prior to arrival. Lab Data CC: Dr. Karen Resendiz MD; Dr. Mejia Shah DO ~ Poster: Signed OTHER FINDINGS/SUMMARY: Patient Attributed To: QAE Payer: Pedro MONROY Action Taken: Referrals/Routed: none Contact made with patient: No, Chart review only. Signature: Hermila Gonsalves RN To: [place] Payer: Pedro MONROY Action Taken: Referrals/Routed: Contact made with patient: No, Chart review only. Signature: Hermila Gonsalves RN Allergies As of Date: 01/26/2024 Noted Allergy Reaction AMITRIPTYLINE 10/01/2012 14 - Other: See Comments Comments: Could not urinate CODEINE 10/16/2004 Comments: chest pain SULFA (SULFONAMIDE ANTIBIOTICS) 03/31/2015 4 - Hives 7 - Swelling 9 - Itching TRAZODONE 10/16/2004 Comments: vivid dreams Date Reviewed: 01/17/2024 Reviewed by: Cristina Tellez RN - Fully Assessed Reason for Visit: ACM LUCIAN RN [[id number]] Cmt: No action needed. Prescriptions as of 01/26/2024 - metoprolol succinate ER (TOPROL XL) 50 mg 24 hr tablet Take 1 tablet by mouth once daily. - gabapentin (NEURONTIN) 300 mg capsule TAKE 2 CAPSULES THREE TIMES DAILY DIRECTED - amLODIPine (NORVASC) 2.5 mg tablet Take 1 tablet by mouth once daily. as needed for a blood pressure 150/80 or greater. - crisaborole 2 % Apply to affected area two times a day. Apply a thin film to affected area(s) 2 times daily - DULoxetine (CYMBALTA) 60 mg capsule Take 1 capsule by mouth once daily. - omeprazole (PRILOSEC) 40 mg capsule Take 1 capsule by mouth once daily. - estradiol (ESTRACE) 0.01 % (0.1 mg/gram) vaginal cream Apply to urethral opening for atrophic vaginitis. Two to three times a week. - clobetasol (TEMOVATE) 0.05 % ointment Actually gets compounded RX 0.07% through [facility] from [employer] to use twice weekly - [facility] probiotics--Yeast and Vaginal PH support probiotic. Probiotic blend. Takes 1 by mouth at bedtime - triamcinolone (KENALOG) 0.025 % ointment Apply 1 application to affected area twice daily as needed. uses near vaginal area - dorzolamide HCl/PF (DORZOLAMIDE, PF,) 2 % drop Use 1 Drop in eyes three times daily. - glycerin-min oil-polycarbophil (REPLENS) gel Uses Replens cream 3 times weekly - COMPOUNDED PRESCRIPTION Massage therapy Dx: Fibromyalgia, Arthritis Problem List As Of Date 01/26/2024 Noted Resolved GENERALIZED ANXIETY DIS [F41.1] Essential hypertension [I10] Osteopenia [M85.80] Generalized osteoarthritis [M15.9] Fibromyalgia [M79.7] INSOMNIA, INTERMITTENT [G47.00] 10/16/2004 HYPERCHOLESTEROLEMIA [E78.00] 10/16/2004 Lichen sclerosus [L90.0] Mixed stress and urge urinary incontinence [N39*07/13/2015 Vitamin D deficiency [E55.9] 07/16/2016 Recurrent major depressive disorder, in partial*09/08/2017 Encounter Status:Closed by HERMILA GONSALVES on 01/26/24[facility] 01-25-2024 Evaluation + Plan noteExtracted from: Title:History and Physical Author:ONEAL ORTIZ MD Date:01/25/24 Hypertensive urgency Elevated troponin in the setting of recent stent placement and hypertension Recent STEMI status post PCI to OM1, left circumflex, mid LAD Hypertension Hyperlipidemia Chronic pain CVC: Dr. Hayes Patient states that her blood pressure has been high over the last few days up into the 190s systolic. Because of her high blood pressure she was concerned and presented to the ED. She denied any chest pain, chest discomfort, shortness of breath, dyspnea on exertion. Upon arrival to the ED, patient was hypertensive to the 180s systolic but otherwise hemodynamically stable. While in the ED, she began having some chest and back discomfort. She was given IV pain medication and a Nitropatch which reduced the pain. Labs significant for sodium 139, potassium 3.9, creatinine 0.85, troponin in the 334-> 288-> 250, BNP unable to be obtained. D-dimer elevated. CTA chest negative for PE or aortic dissection, did demonstrate emphysema with mild ground-glass opacities. Given her recent STEMI and stent placements, she was transferred to [facility] for further evaluation. Upon arrival to the CCU, patient was hypertensive. Denied any chest pain. EKG demonstrating normal sinus rhythm with a PVC and no significant ST segment changes when compared to prior. Last echo 01/20/2024: EF 55 to 60% with no regional wall motion abnormalities, grade 1 diastolic dysfunction, mild to moderate aortic valve regurgitation. Plan: Reinitiate home metoprolol 50 mg daily, increase home losartan to 50 mg daily Start amlodipine 5 mg daily Continue aspirin and Plavix Trend troponin Obtain new labs Addendum by JOEL MURILLO MD on January 26, 2024 15:18:55 EST I have personally seen, examined, and evaluated the patient on the encounter date. I have reviewed the fellow s documentation and agree with the fellow s findings and plan as documented, unless otherwise stated. Future Appointments Appointment Date:02/18/2024 11:30:00 AM Scheduled Provider:SAMANTHA JOYNER Location:[facility] Appointment Type:CV OV Hospital Follow Up [facility] 12-15-2024 NoteSINUS RHYTHM LVH WITH SECONDARY REPOLARIZATION ABNORMALITY Electronic Signature: KAREN JULIEN MD 01/26/2024 08:36:53[facility] 12-15-2024 History and physical note Date of Service 01/25/2024 Chief Complaint Hypertensive Urgency Elevated Troponin History of Present Illness 83-year-old female with past medical history of recent STEMI status post PCI to OM1, left circumflex, mid LAD, hypertension, hyperlipidemia, chronic pain who presents for high blood pressure readings. Patient states that her blood pressure has been high over the last few days up into the 190s systolic. Because of her high blood pressure she was concerned and presented to the ED. She denied any chest pain, chest discomfort, shortness of breath, dyspnea on exertion. Upon arrival to the ED, patient was hypertensive to the 180s systolic but otherwise hemodynamicallystable. While in the ED, she began having some chest and back discomfort. She was given IV pain medication and a Nitropatch which reduced the pain. Labs significant for sodium 139, potassium 3.9, creatinine 0.85, troponin in the 334-> 288-> 250, BNP unable to be obtained. D-dimer elevated. CTA chest negative for PE or aortic dissection, did demonstrate emphysema with mild ground-glass opacities. Chest x-ray negative for any acute cardiopulmonary processes. Given her recent STEMI and stent placements, she was transferred to [facility] for further evaluation. Upon arrival to the CCU, patient was hypertensive. Denied any chest pain. EKG demonstrating normal sinus rhythm with a PVC and no significant ST segment changes when compared to prior. Review of Systems Per HPI, Complete ROS otherwise negative Physical Exam Vitals and Measurements T: 36.9 C (Oral) HR: 82 (Monitored) HR: 82 (Apical) RR: 18 BP: 190/68 SpO2: 99% HT: 157.6 cm WT: 61.2 kg BMI: 24.64 Weight Dosing Weight: 61.2 kg (01/25/24) General: AAOX3, NAD HEENT: Anicteric sclera, MMM Neck: Trachea midline, no JVD appreciated CVS: RRR, normal S1/S2, no murmurs/rubs/gallops Lung: CTAB, no wheezes/rhonchi/rales Abd: Soft, NT/ND Extrem: WWP, no LE edema Skin: Warm, Intact Neuro: AAOX3, spontaneous movement of all extremities Psych: Appropriate mood & affect Lab Results No 36 Hour Lab Data Imaging Results and Diagnostics CTA chest negative for PE or aortic dissection, did demonstrate emphysema with mild ground-glass opacities. Chest x-ray negative for any acute cardiopulmonary processes. Assessment/Plan Hypertensive urgency Elevated troponin in the setting of recent stent placement and hypertension Recent STEMI status post PCI to OM1, left circumflex, mid LAD Hypertension Hyperlipidemia Chronic pain CVC: Dr. Hayes Patient states that her blood pressure has been high over the last few days up into the 190s systolic. Because of her high blood pressure she was concerned and presented to the ED. She denied any chest pain, chest discomfort, shortness of breath, dyspnea on exertion. Upon arrival to the ED, patient was hypertensive to the 180s systolic but otherwise hemodynamicallystable. While in the ED, she began having some chest and back discomfort. She was given IV pain medication and a Nitropatch which reduced the pain. Labs significant for sodium 139, potassium 3.9, creatinine 0.85, troponin in the 334-> 288-> 250, BNP unable to be obtained. D-dimer elevated. CTA chest negative for PE or aortic dissection, did demonstrate emphysema with mild ground-glass opacities. Given her recent STEMI and stent placements, she was transferred to [facility] for further evaluation. Upon arrival to the CCU, patient was hypertensive. Denied any chest pain. EKG demonstrating normal sinus rhythm with a PVC and no significant ST segment changes when compared to prior. Last echo 01/20/2024: EF 55 to 60% with no regional wall motion abnormalities, grade 1 diastolic dysfunction, mild to moderate aortic valve regurgitation. Plan: Reinitiate home metoprolol 50 mg daily, increase home losartan to 50 mg daily Start amlodipine 5 mg daily Continue aspirin and Plavix Trend troponin Obtain new labs Problem List/Past Medical History Ongoing Anxiety Chest pain due to CAD Eczema Fibromyalgia Procedure/Surgical History No qualifying data available. Medications Home Medications (11) Active aspirin 81 mg oral delayed release tablet 81 mg = 1 tab(s), Oral, qDay crisaborole 2% topical ointment 1 sammy, Topical, BID dorzolamide 2% ophthalmic solution 1 drop(s), Eyes, both, TID Dry Eye Relief ophthalmic solution 1 drop(s), PRN, Eyes, both, BID DULoxetine 60 mg oral delayed release capsule 60 mg = 1 cap(s), Oral, qDay gabapentin 300 mg oral capsule 300 mg = 1 cap(s), Oral, TID losartan 25 mg oral tablet 25 mg = 1 tab(s), Oral, qDay metoprolol succinate 50 mg oral TABLET extended release 50 mg = 1 tab(s), Oral, qDay omeprazole 40 mg, Oral, qDay Plavix 75 mg oral tablet 75 mg = 1 tab(s), Oral, qDay rosuvastatin 20 mg oral tablet 20 mg = 1 tab(s), Oral, qHS Allergies sulfa drugs Pt unsure Immunizations No qualifying data available. Code Status Code Status - Ordered -- 01/25/24 2:30:00 EST, Full Code, Constant Order Digitally Signed by HESHAM ORTIZ MD on 01/26/2024 08:[address] [facility] [id number] NoteSINUS RHYTHM VENTRICULAR PREMATURE COMPLEX LVH WITH SECONDARY REPOLARIZATION ABNORMALITY INFERIOR INFARCT, OLD Electronic Signature: GERSON LY MD 01/25/2024 20:41:59[facility] 12-13-2024 Telephone encounter Note* Telephone Encounter - Odessa Ackerman RN - 01/23/2024 4:09 PM EST Patient calls to report that her BP today has been a little elevated. 182/76 and 179/71 most recent HR 77. Patient denies any CP, SOB , headache, changes in vision, dizziness, weakness. Patient reports that she has not taken the as needed amlodipine for BP above 150/80. Instructed patient that she should take medication as ordered. Patient afraid she is not going to be able to find prescription. Notified patient that she has a prescription at [facility] if not able to locate. Reviewed care advice and red flag symptoms to go to ER with. Patient verbalizes understanding and will look for amlodipine. nurse is there now to assist patient. Patient to call back with any further questions. Odessa Ackerman RN [facility]12-13-2024 Miscellaneous Notes* Telephone Encounter - Odessa Ackerman RN - 01/23/2024 4:09 PM EST Patient calls to report that her BP today has been a little elevated. 182/76 and 179/71 most recent HR 77. Patient denies any CP, SOB , headache, changes in vision, dizziness, weakness. Patient reports that she has not taken the as needed amlodipine for BP above 150/80. Instructed patient that she should take medication as ordered. Patient afraid she is not going to be able to find prescription. Notified patient that she has a prescription at [email or web address] if not able to locate. Reviewed care advice and red flag symptoms to go to ER with. Patient verbalizes understanding and will look for amlodipine. nurse is there now to assist patient. Patient to call back with any further questions. Odessa Ackerman RN documented in this encounterGrand [facility]12-11-2024 NoteHNO ID: [id number] Author: KORINA BILLY RN Service: ? Author Type: Registered Nurse Type: Progress Notes Filed: 01/21/2024 11:31 Note Text: Transition Care Management (TCM) Initial Outreach PCP Update / Actionable Items N/A - No specialty updates needed Patient Source: [id number] (OON) Discharge Outreach Summary: spoke with patient doing well at home, denies any worsening chest pain. Recovering from surgery. Has not checked BP yet today but will be taking her medications soon and will check this awhile after taking. Assisted with PCP follow up appointment for 01/26 Patient discharged from [facility] Discharge date: 01/19/2024 Admitted for: CP, STEMI Readmission Risk: n/a Value-Based Contract: Pedro MONROY Contact: Contact made with patient: Yes Hi, my name is Korina Billy RN and I am calling from the [facility] on behalf of your Primary Care Provider, Karen Resendiz MD. I understand you were recently in the hospital, so I am calling to check in with you to ensure you are feeling well now that you are home. May I ask you a few questions related to your hospital stay and well-being? Yes Spoke to: Patient Validation: Validated the person spoken to is actively involved in the patient's care. The patient was identified by Name and Date of . Symptoms: Are you feeling about the same, better or worse since leaving the hospital? Better Medications: Do you have any questions about taking your medications, including which medications you should be on, or do you need refills on your medications? No Medication Review: Declined at this time per patient preference - OON Discharge Instructions: Your Discharge Instructions / After Visit Summary (AVS) are important in guiding you through the recovery process. Do you have any questions related to your discharge instructions? No Home Care: Were you discharged with home care? No Equipment: Do you have all the necessary equipment and supplies needed at your home? Yes The patient verbalizes understanding the use of the equipment and supplies Social: We would like to make sure you have what you need so that your basics needs are met - including your personal safety, food, housing and medications. Would you like to speak with a social work steam conditioner operator to help give you support for any of these needs? No It can be normal to feel anxious or down during a time like this. Would you like to talk to a mental health professional about how you have been feeling? No Action Taken: No needs verbalized. No action required. Follow-Up Appointment: [Appointment / TCM Follow-up within 14 days] I would like to help you schedule a hospital follow-up virtual or telephone visit with your PCP. This is a great way for you to connect with your provider to ensure you have safely transitioned home. If you are agreeable, I will send your request to a supervisor winding department who will contact and assist you with that appointment. This will give you an opportunity to ask any questions or address any concerns you may have with your PCP. Inform the patient that if they have any questions or concerns prior to that appointment, to call their PCP's office right away. Appointment Action: TCM Nurse assisted patient with scheduling follow up appointment. [NOTES to review before scheduling appointments. Ensure that you are scheduling the appropriate length of visit. Appointment scheduled must be for TCM follow up. Do not add the TCM visit type to another scheduled appointment. If patient has a previously scheduled follow-up appointment, route to [facility] for updated appointment type or to schedule Hospital Discharge follow up appointment.] Hospital Discharge follow-up appointment date and time: 01/26 Education High Blood Pressure Topics Covered Importance of checking and monitoring your blood pressure at home Targets addressed / completed during outreach: Contact patient within two (2) business days Outreach Outcome: Enrolled in TCM Care Management partners utilized: N/A Korina Billy RN January 21, 2024 11:29 [facility]12-11-2024 History of Present illness Narrative* Korina Billy RN - 01/21/2024 11:23 AM EST Transition Care Management (TCM) Initial Outreach PCP Update / Actionable Items N/A - No specialty updates needed Patient Source: [id number] (OON) Discharge Outreach Summary: spoke with patient doing well at home, denies any worsening chest pain. Recovering from surgery. Has not checked BP yet today but will be taking her medications soon and will check this awhile after taking. Assisted with PCP follow up appointment for 01/26 Patient discharged from [facility] Discharge date: 01/19/2024 Admitted for: CP, STEMI Readmission Risk: n/a Value-Based Contract: Pedro MONROY Contact: Contact made with patient: Yes Hi, my name is Korina Billy RN and I am calling from the [facility] on behalf of your Primary Care Provider, Karen Resendiz MD. I understand you were recently in the hospital, so I am calling to check in with you to ensure you are feeling well now that you are home. May I ask you a few questions related to your hospital stay and well-being? Yes Spoke to: Patient Validation: Validated the person spoken to is actively involved in the patient's care. The patient was identified by Name and Date of . Symptoms: Are you feeling about the same, better or worse since leaving the hospital? Better Medications: Do you have any questions about taking your medications, including which medications you should be on, or do you need refills on your medications? No Medication Review: Declined at this time per patient preference - OON Discharge Instructions: Your Discharge Instructions / After Visit Summary (AVS) are important in guiding you through the recovery process. Do you have any questions related to your discharge instructions? No Home Care: Were you discharged with home care? No Equipment: Do you have all the necessary equipment and supplies needed at your home? Yes The patient verbalizes understanding the use of the equipment and supplies Social: We would like to make sure you have what you need so that your basics needs are met - including your personal safety, food, housing and medications. Would you like to speak with a social work steam conditioner operator to help give you support for any of these needs? No It can be normal to feel anxious or down during a time like this. Would you like to talk to a mental health professional about how you have been feeling? No Action Taken: No needs verbalized. No action required. Follow-Up Appointment: [Appointment / TCM Follow-up within 14 days] I would like to help you schedule a hospital follow-up virtual or telephone visit with your PCP. This is a great way for you to connect with your provider to ensure you have safely transitioned home.If you are agreeable, I will send your request to a supervisor winding department who will contact and assist you with that appointment. This will give you an opportunity to ask any questions or address any concerns youmay have with your PCP. Inform the patient that if they have any questions or concerns prior to that appointment, to call their PCP's office right away. Appointment Action: TCM Nurse assisted patient with scheduling follow up appointment. [NOTES to review before scheduling appointments. Ensure that you are scheduling the appropriate length of visit. Appointment scheduled must be for TCM follow up. Do not add the TCM visit type to another scheduled appointment. If patient has a previously scheduled follow-up appointment, route to [facility] [place] for updated appointment type or to schedule Hospital Discharge follow up appointment.] Hospital Discharge follow-up appointment date and time: 01/26 Education High Blood Pressure Topics Covered Importance of checking and monitoring your blood pressure at home Targets addressed / completed during outreach: Contact patient within two (2) business days Outreach Outcome: Enrolled in TCM Care Management partners utilized: N/A Korina Billy RN January 21, 2024 11:29 AM [facility] NotePatient Outreach ([facility]) KALINA RUDD ([id number]) 1940 [address] [facility] Date Time Provider Department 01/21/24 KORINA BILLY During your visit today, we recorded the following information about you: Korina Billy RN 01/21/2024 11:31 AM Signed Transition Care Management (TCM) Initial Outreach PCP Update / Actionable Items N/A - No specialty updates needed Patient Source: [id number] (OON) Discharge Outreach Summary: spoke with patient doing well at home, denies any worsening chest pain. Recovering from surgery. Has not checked BP yet today but will be taking her medications soon and will check this awhile after taking. Assisted with PCP follow up appointment for 01/26 Patient discharged from [facility] Discharge date: 01/19/2024 Admitted for: CP, STEMI Readmission Risk: n/a Value-Based Contract: Pedro MONROY Contact: Contact made with patient: Yes Hi, my name is Korina Billy RN and I am calling from the [facility] on behalf of your Primary Care Provider, Karen Resendiz MD. I understand you were recently in the hospital, so I am calling to check in with you to ensure you are feeling well now that you are home. May I ask you a few questions related to your hospital stay and well-being? Yes Spoke to: Patient Validation: Validated the person spoken to is actively involved in the patient's care. The patient was identified by Name and Date of . Symptoms: Are you feeling about the same, better or worse since leaving the hospital? Better Medications: Do you have any questions about taking your medications, including which medications you should be on, or do you need refills on your medications? No Medication Review: Declined at this time per patient preference - OON Discharge Instructions: Your Discharge Instructions / After Visit Summary (AVS) are important in guiding you through the recovery process. Do you have any questions related to your discharge instructions? No Home Care: Were you discharged with home care? No Equipment: Do you have all the necessary equipment and supplies needed at your home? Yes The patient verbalizes understanding the use of the equipment and supplies Social: We would like to make sure you have what you need so that your basics needs are met - including your personal safety, food, housing and medications. Would you like to speak with a social work steam conditioner operator to help give you support for any of these needs? No It can be normal to feel anxious or down during a time like this. Would you like to talk to a mental health professional about how you have been feeling? No Action Taken: No needs verbalized. No action required. Follow-Up Appointment: [Appointment / TCM Follow-up within 14 days] I would like to help you schedule a hospital follow-up virtual or telephone visit with your PCP. This is a great way for you to connect with your provider to ensure you have safely transitioned home. If you are agreeable, I will send your request to a supervisor winding department who will contact and assist you with that appointment. This will give you an opportunity to ask any questions or address any concerns you may have with your PCP. Inform the patient that if they have any questions or concerns prior to that appointment, to call their PCP's office right away. Appointment Action: TCM Nurse assisted patient with scheduling follow up appointment. [NOTES to review before scheduling appointments. Ensure that you are scheduling the appropriate length of visit. Appointment scheduled must be for TCM follow up. Do not add the TCM visit type to another scheduled appointment. If patient has a previously scheduled follow-up appointment, route to [facility] for updated appointment type or to schedule Hospital Discharge follow up appointment.] Hospital Discharge follow-up appointment date and time: 01/26 Education High Blood Pressure Topics Covered Importance of checking and monitoring your blood pressure at home Targets addressed / completed during outreach: Contact patient within two (2) business days Outreach Outcome: Enrolled in TCM Care Management partners utilized: N/A Korina Billy RN January 21, 2024 11:29 AM Allergies As of Date: 01/21/2024 Noted Allergy Reaction AMITRIPTYLINE 10/01/2012 14 - Other: See Comments Comments: Could not urinate CODEINE 10/16/2004 Comments: chest pain SULFA (SULFONAMIDE ANTIBIOTICS) 03/31/2015 4 - Hives 7 - Swelling 9 - Itching TRAZODONE 10/16/2004 Comments: vivid dreams Date Reviewed: 01/17/2024 Reviewed by: Cristina Tellez RN - Fully Assessed Reason for Visit: Transition Of Care [2552] Cmt: Hospital discharge [facility] 01/19/2024 - Initial outreach Prescriptions as of 01/21/2024 - metoprolol succinate ER (TOPROL XL) 50 mg 24 hr tablet Ta (more content not included)...[facility]12-10-2024 Discharge summary Date of Service 01/20/2024 Discharge Diagnosis NSTEMI Multivessel disease s/p PCI Hx of HTN Hospital Course 83-year-old female with past medical hx of HTN and chronic pain presented from [facility] as a transfer with concerns for STEMI. Patient presented to [facility] ER initially with concerns of elevated blood pressure and intermittent headaches that had been going on for a few days. On presentation to ER her SBP was in 190s and there was a concern for hypertensive emergency intracranial bleed. Patient was given IV hydralazine andCT head was ordered, EKG was normal. CT head came back normal, however shortly after returning fromCT scan patient started complaining of midsternal chest pain. Chest pain was not sharp and was not radiating to her arm or jaw. Aspirin was ordered and troponins remained negative. EKG was repeated, third EKG showed worsening ST changes, there were some elevations in aVR as well as depressions in the anterolateral need. With these new EKG changes, STEMI alert was called. She underwent a cardiac catheterization which showed severe multivessel CAD involving the LAD, OM, and RCA. It appears patient went into VT/V-fib after the RCA was injected she then underwent 3 shocks. 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 When patient arrived patient was chest pain-free on IV heparin drip and IV nitroglycerin. On presentation to [facility], she was chest pain-free, was not having any active complaint. She was just anxious about all that happening during the daytime. She underwent PCI on 01/19/2024 and tolerated the procedure well. She had complaints of mild chest pain post procedure, which resolved with Tylenol and lidocaine patch. She was discharged on DAPT (aspirin and Plavix) and rosuvastatin. Adjustments were made to medications, losartan was added and amlo dipine was discontinued. Estradiol which was a home medication, was discontinued as it increases patient's risk of thrombosis. Other home medications were continued as appropriate. For PCP: Patient should be on aspirin and plavix for 1 year, then just aspirin daily after Patient should follow up with Dr. Rodrigo Hayes, Muffle Worker following discharge Repeat BMP in 1 week Allergies sulfa drugs Pt unsure Procedures PCI on 01/19/2024 Consults Consult to Occupational Therapy (OT Consult) - Ordered -- 01/20/24 9:37:00 EST, Once, Routine, Self care deficit Consult to Physical Therapy (PT Consult) - Ordered -- 01/20/24 9:37:00 EST, Once, Decreased strength/range of motion Objective Vitals and Measurements T: 36.4 C (Oral) TMIN: 36.4 C (Oral) TMAX: 37.1 C (Oral) HR: 77 (Monitored) RR: 20 BP: 118/52 SpO2:98% Weight Dosing Weight: 66 kg (01/18/24) Code Status No qualifying data available. Admission Date 01/18/2024 Discharge Date 01/20/2024 Patient Instructions 1. Kindly follow up with your Primary Care Physician and Muffle Worker as recommended. _ 2. Some of your medications may have changed during this hospital stay. Please go over these changes with your nurse before you leave the hospital. Since you have had a coronary stenting procedure done, you will need to continue aspirin and plavix for the next 12 months without fail. 3. Take all your medications as prescribed. If you have any queries, please reach out to our [facility] office at [phone] for general queries and [phone] for medication refills. 4. All your medical records and results are available to you through our [facility] Patient Portal. Tosign up, please visit [email or web address] Medications New Prescription aspirin (aspirin 81 mg oral delayed release tablet)1 tab(s) by mouth once a day for 90 Days. Refills: 5. clopidogrel (Plavix 75 mg oral tablet)1 tab(s) by mouth once a day for 90 Days. Refills: 4. losartan (losartan 25 mg oral tablet)1 tab(s) by mouth once a day for 30 Days. Refills: 5. rosuvastatin (rosuvastatin 20 mg oral tablet)1 tab(s) by mouth daily at bedtime for 90 Days. Refills: 4. Changed metoprolol (metoprolol succinate 50 mg oral TABLET extended release)1 tab(s) by mouth once a day for 30 Days. Do not crush or chew (controlled release). Refills: 3. Unchanged crisaborole topical (crisaborole 2% topical ointment)1 application Topical two (2) times a day. wash hands thoroughly after application. dorzolamide ophthalmic (dorzolamide 2% ophthalmic solution)1 Drops Both eyes three (3) times a day. DULoxetine (DULoxetine 60 mg oral delayed release capsule)1 cap by mouth once a day. gabapentin (gabapentin 300 mg oral capsule)1 cap by mouth three (3) times a day. ocular lubricant (Dry Eye Relief ophthalmic solution)1 Drops Both eyes two (2) times a day as needed as needed for dry eyes. [id number] Milligram by mouth once a day. Discontinued amLODIPine (amLODIPine 2.5 mg oral tablet)1 tab(s) by mouth once a day. estradiol (estradiol 0.025 mg/24 hours weekly transdermal film, extended release)1 patch(es) Topical every week. Follow Up Follow Up with KAREN RESENDIZ MD When:Within 5 to 7 days Where:[address], [place] [id number]- Follow Up with JOEL JOYNER MD When:02/18/2024 11:30 AM EST Where:[address] [place], [place] [id number]- [phone] Follow Up Appointments No qualifying data available. Follow Up Labs/Studies Discharge Labs No Follow-up Labs Discharge Studies No Follow-up Studies Discharge Diet Discharge Diet - Ordered -- Diet Restrictions: Cardiac diet, Sodium limit: 2 gm, No changes were made to your diet during your hospital stay. Please resume your pre hospitalization diet on discharge., 01/20/24 15:00:00 EST Discharge Activity Discharge Activity - Ordered -- Activity As Tolerated, 01/20/24 15:00:00 EST Condition on Discharge Stable Readmission Risk/Palliative Score LACE Score: 8 (01/19/24 14:22:00) Palliative Total Score: 1 (01/19/24 14:22:00) Discharge Disposition Home Information Provided To Patient and family Time Spent 30 minutes Digitally Signed by PAM HERNANDEZ MD on 01/20/2024 10:30 PM Digitally Signed by PAM HERNANDEZ MD on 01/20/2024 10:34 PM Digitally Signed by ALIN THOMPSON MD [id number] Hospital Discharge instructions Patient Education 01/20/2024 16:20:37 3- Heart Cath/PCI groin (11/2017)(CUSTOM) HEART CATHETERIZATION/PCI (groin) Discharge Instructions DIET INSTRUCTIONS Drink plenty of fluids for the next 48 hours to help your kidneys flush the heart cath dye out of your system ACTIVITIES May go up and down stairs CAREFULLY Do not drive car FOR 24 HOURS No heavy lifting GREATER THAN 10 POUNDS or pushing or straining FOR 2 DAYS Someone must stay with you at home after the procedure until the morning. BATHING/SHOWERING May tub bathe in 1 week May shower tomorrow WOUND CARE You will go home with a Band-Aid over your heart cath site. Keep a Band-Aid on for the next 24 hours and then leave open to air. Some degree of bruising and tenderness is normal around the heart cath site. It will take a while for any bruising to completely resolve. Keep your site clean and dry. You need to report the following to your business applications manager: Any draining or oozing from the site Any swelling at the site Any increased pain or tenderness at the site Any numbness in your leg where the procedure was done Any signs of infection IMPORTANT! CALL 911 FOR ANY BLEEDING OR SWELLING AT THE PROCEDURE SITE If there is any large amount of bleeding, you or someone else need to apply direct pressure to the site (just like the nurse did in the heart lab after your procedure). It is very important that you hold constant pressure. Do not release the pressure to check if the bleeding has stopped. You then need to be transported to the nearest emergency room. WATCH FOR SIGNS OF INFECTION (Usually appears 36-48 hours after surgery) A temperature above 100.5 Redness or swelling Increased pain Foul odor or drainage If you have any questions, please call your doctor at the number listed on your follow up instructions. Follow all instructions given to you by your physician Document Released: 01/27/2006 Document Revised: 01/13/2013 Document Reviewed: 01/28/2014 ExitCare Patient Information 2014 [employer]. This information is not intended to replace advicegiven to you by your health care provider. Make sure you discuss any questions you have with your health care provider. 01/20/2024 16:20:23 3- Heart Cath/PCI radial (11/2017)(CUSTOM) HEART CATHETERIZATION/PCI (radial) Discharge Instructions DIET Drink plenty of fluids for the next 48 hours to help your kidneys flush the heart cath dye out of your system ACTIVITY For the next 48 hours: Do not deep bend the wrist Do not lift, push, or pull anything over 5 pounds Do not use the hand/arm to support your weight when rising from a chair or bed Do not drive For the next 7 days: Do not submerse your procedure site in water Do not swim, wash dishes, or take tub baths You may write, eat, type, and shower WOUND CARE Keep a Band-Aid on your procedure site for the next 3-4 days Change the Band-Aid daily or if it gets wet/soiled AFTER YOU GO HOME, CALL YOUR DOCTOR FOR: Any increase in bruising or tenderness from the procedure site Any redness, pus, or other signs of infection at the site A temperature above 100.5 Severe pain at the site DIAL 911 AND RETURN TO THE HOSPITAL FOR: Any bleeding from the procedure site. The site may be bruised or tender, but it should not be bleeding at any time. If your site begins to bleed, hold firm pressure on it and dial 911 to return to the hospital Any increase in swelling at the procedure site. An increase in swelling could mean the area is bleeding under the skin. Hold firm pressure to the site and dial 911 to return to the hospital Document Released: 01/27/2006 Document Revised: 01/13/2013 Document Reviewed: 01/28/2014 ExitCare Patient Information 2015 [employer]. This information is not intended to replace advicegiven to you by your health care provider. Make sure you discuss any questions you have with your health care provider. Follow Up Care 01/18/2024 01:40:06 With:KAREN RESENDIZ MD Address: [address] [place] [address]- When:5 to 7 days With:JOEL JOYNER MD Address: [address] [place] [address] [phone] When:02/18/2024 11:30:[address] [facility] 12-10-2024 Note Discharge Instructions Thank you for allowing [facility] to assist you with your healthcare needs. The following is importantdischarge information regarding your hospital visit. Your Care Team KAREN RESENDIZ MD What to do next Instructions From Your Doctor 1. Kindly follow up with your Primary Care Physician and Muffle Worker as recommended. _ 2. Some of your medications may have changed during this hospital stay. Please go over these changes with your nurse before you leave the hospital. Since you have had a coronary stenting procedure done, you will need to continue aspirin and plavix for the next 12 months without fail. 3. Take all your medications as prescribed. If you have any queries, please reach out to our [facility] office at [phone] for general queries and [phone] for medication refills. 4. All your medical records and results are available to you through our [employer] Patient Portal. Tosign up, please visit [email or web address] Scheduled Follow-Up Appointments Appointment Type When With Where Contact Information StatusCV Hospital Follow Up 02/18/2024 11:30 AM EST SAMANTHA JOYNER [facility] Confirmed Follow Up Appointments Follow Up with KAREN RESENDIZ MD When:Within 5 to 7 days Where:[address] [place] [address]- Follow Up with JOEL JOYNER MD When:02/18/2024 11:30 AM EST Where:[address] [place] [address]- [phone] The Following Activity and Diet Have Been Ordered for You Discharge Activity - Ordered -- Activity As Tolerated, 01/20/24 15:00:00 EST Discharge Diet - Ordered -- Diet Restrictions: Cardiac diet, Sodium limit: 2 gm, No changes were made to your diet during your hospital stay. Please resume your pre hospitalization diet on discharge., 01/20/24 15:00:00 EST The Following Equipment Has Been Ordered for You No qualifying data available. The Following Treatments Have Been Ordered for You Discharge Labs No qualifying data available. Discharge Radiology No qualifying data available. Other Therapies No qualifying data available. Post Acute Orders No qualifying data available. Someone Will Contact You Regarding These Home Health Referrals No home referrals have been ordered for you. No one will call you. Allergies sulfa drugs Pt unsure Immunizations This Visit Not Given Vaccine Commentsinfluenza virus vaccine, inactivated Patient Refuses Medications Please ask your primary doctor or pharmacist before taking any other medication not listed, including over the counter drugs, herbal medications, vitamins and or supplements as they may interact withyour home medications. What How Much When Instructions Last Dose New aspirin (aspirin 81 mg oral delayed release tablet) 1 tab(s) by mouth Once a day Duration: 90 Days Refills: 5 Pickup at [facility] New clopidogrel (Plavix 75 mg oral tablet) 1 tab(s) by mouth Once a day Duration: 90 Days Refills: 4 Pickup at [facility] New losartan (losartan 25 mg oral tablet) 1 tab(s) by mouth Once a day Duration: 30 Days Refills: 5 Pickup at [facility] New rosuvastatin (rosuvastatin 20 mg oral tablet) 1 tab(s) by mouth Daily at bedtime Duration: 90 Days Refills: 4 Pickup at [facility] Changed metoprolol (metoprolol succinate 50 mg oral TABLET extended release) 1 tab(s) by mouth Once a day Duration: 30 Days Do not crush or chew (controlled release) Pickup at [facility] Unchanged crisaborole topical (crisaborole 2% topical ointment) 1 application Topical Two (2) times a day wash hands thoroughly after application Unchanged dorzolamide ophthalmic (dorzolamide 2% ophthalmic solution) 1 Drops Both eyes Three (3) times a day Unchanged DULoxetine (DULoxetine 60 mg oral delayed release capsule) 1 cap by mouth Once a day Unchanged gabapentin (gabapentin 300 mg oral capsule) 1 cap by mouth Three (3) times a day Unchanged ocular lubricant (Dry Eye Relief ophthalmic solution) 1 Drops Both eyes Two (2) times a day as needed for as needed for dry eyes Unchanged omeprazole 40 Milligram by mouth Once a day Pharmacy Information [facility]: [address] [place] [address] [phone] What How Much When Comments Stop Taking amLODIPine (amLODIPine 2.5 mg oral tablet) 1 tab(s) by mouth Once a day Stop Taking estradiol (estradiol 0.025 mg/ 24 hours weekly transdermal film, extended release) 1 patch(es) Topical Every week Please take this list to your next doctor s visit. Bring all medications you take, including over the counter medications, herbals and other supplements with you to your doctor s visit. Patients and families are reminded to discard old lists and to update any records with all medication providers or retail pharmacies. Medication Leaflets losartan (jairbenja roweCristopher Melton What is the most important information I should know about losartan? Do not use if you are . Stop using this medicine and tell your doctor right away if you become . Tell your doctor about all your other medicines. Some drugs should not be used with losartan. What is losartan? Losartan is used alone or in combination with other medicines to treat high blood pressure in adults and children at least 6 years old. Lowering blood pressure may lower your risk of a stroke in certain people with heart disease. Losartan is also used to slow long-term kidney damage in people with type 2 diabetes who have high blood pressure. Losartan may also be used for purposes not listed in this medication guide. What should I discuss with my healthcare provider before taking losartan? You should not use losartan if you are allergic to it. If you have diabetes, do not take losartan with any medication that contains aliskiren (a blood pressure medicine). Tell your doctor if you have ever had: heart disease or congestive heart failure; an electrolyte imbalance (such as high levels of potassium in your blood); if you are on a low-salt diet; liver disease; or kidney disease. You may also need to avoid taking losartan with aliskiren if you have kidney disease. Stop using this medicine and tell your doctor right away if you become . Losartan can causeinjury or to the unborn baby if you use the medicine during your second or third trimester. Tell your doctor if you are . How should I take losartan? Follow all directions on your prescription label and read all medication guides or instruction sheets. Your doctor may occasionally change your dose. Use the medicine exactly as directed. Losartan is usually taken once per day. You may take losartan with or without food. Call your doctor if you are sick with vomiting or diarrhea, or if you are sweating more than usual.You can easily become dehydrated while taking losartan. This can lead to very low blood pressure, aserious electrolyte imbalance, or kidney failure. Your blood pressure will need to be checked often and you may need frequent blood tests. If you have high blood pressure, keep using this medicine even if you feel well. High blood pressure often has no symptoms. Store tightly closed at room temperature, away from moisture, heat, and light. What happens if I miss a dose? Take the medicine as soon as you can, but skip the missed dose if it is almost time for your next dose. Do not take two doses at one time. What happens if I overdose? Seek emergency medical attention or call the Poison Help line at . What should I avoid while taking losartan? Avoid getting up too fast from a sitting or lying position, or you may feel dizzy. Do not use potassium supplements or salt substitutes, unless your doctor has told you to. What are the possible side effects of losartan? Get emergency medical help if you have signs of an allergic reaction: hives, difficulty breathing, swelling of your face, lips, tongue, or throat. Call your doctor at once if you have: a light-headed feeling, like you might pass out; high blood potassium--nausea, weakness, tingly feeling, chest pain, irregular heartbeats, loss of movement; or kidney problems--swelling, urinating less, feeling tired or short of breath. Common side effects may include: dizziness, tiredness; low blood pressure; low blood sugar; diarrhea; back pain; or cold symptoms such as stuffy nose, sneezing, sore throat. This is not a complete list of side effects and others may occur. Call your doctor for medical advice about side effects. You may report side effects to FDA at 0-966-DLL-7942. What other drugs will affect losartan? Sometimes it is not safe to use certain medicines at the same time. Some drugs can affect your blood levels of other drugs you use, which may increase side effects or make the medicines less effective. Tell your doctor about all your other medicines, especially: a diuretic or 'water pill' that may increase blood potassium such as spironolactone, triamterene, amiloride; NSAIDs (nonsteroidal anti-inflammatory drugs)--aspirin, ibuprofen (Advil, Motrin), naproxen (Aleve), celecoxib, diclofenac, indomethacin, meloxicam, and others; or heart or blood pressure medication. This list is not complete. Other drugs may affect losartan, including prescription and pzoo-yes-hjdclgq medicines, vitamins, and herbal products. Not all possible drug interactions are listed here. Where can I get more information? Your doctor or pharmacist can provide more information about losartan. Remember, keep this and all other medicines out of the reach of children, never share your medicines with others, and use this medication only for the indication prescribed. Every effort has been made to ensure that the information provided by [employer]. ('[employer]') is accurate, up-to-date, and complete, but no guarantee is made to that effect. Drug information contained herein may be time sensitive. [employer] information has been compiled for use by healthcare practitioners and consumers in the [place] and therefore [employer] does not warrant that uses outside of the [place] are appropriate, unless specifically indicated otherwise. [employer] drug information does not endorse drugs, diagnose patients or recommend therapy. [employer] drug information isan informational resource designed to assist licensed healthcare practitioners in caring for their p atients and/or to serve consumers viewing this service as a supplement to, and not a substitute for, the expertise, skill, knowledge and judgment of healthcare practitioners. The absence of a warningfor a given drug or drug combination in no way should be construed to indicate that the drug or drug combination is safe, effective or appropriate for any given patient. [employer] does not assume any responsibility for any aspect of healthcare administered with the aid of information [employer] provides. The information contained herein is not intended to cover all possible uses, directions, precautions, warnings, drug interactions, allergic reactions, or adverse effects. If you have questions about the drugs you are taking, check with your doctor, nurse or pharmacist. Copyright 3834-3921 [employer]. Version: 19.. Revision Date: 08/08/2022. clopidogrel (kloe PID oh grel) Plavix What is the most important information I should know about clopidogrel? You should not use this medicine if you have any active bleeding such as a stomach ulcer or bleeding in the brain. Clopidogrel increases your risk of bleeding, which can be severe or life- threatening. Call your doctor or seek emergency medical attention if you have bleeding that will not stop, if you have blood in your urine, black or bloody stools, or if you cough up blood or vomit that looks like coffee grounds. Do not stop taking clopidogrel without first talking to your doctor, even if you have signs of bleeding. Stopping clopidogrel may increase your risk of a heart attack or stroke. What is clopidogrel? Clopidogrel is used to lower your risk of having a stroke, blood clot, or serious heart problem after you've had a heart attack, severe chest pain (angina), or circulation problems. Clopidogrel may also be used for purposes not listed in this medication guide. What should I discuss with my healthcare provider before taking clopidogrel? You should not use clopidogrel if you are allergic to it, or if you have: any active bleeding; or a stomach ulcer or bleeding in the brain (such as from a head injury). Tell your doctor if you have ever had: an ulcer in your stomach or intestines; or a bleeding disorder or blood clotting disorder. Clopidogrel may not work as well if you have certain genetic factors that affect the breakdown of this medicine in your body. Your doctor may perform a blood test to make sure clopidogrel is right for you. This medicine is not expected to harm an unborn baby. However, taking clopidogrel within 1 week before childbirth can cause bleeding in the mother. Tell your doctor if you are or plan to become . You should not breastfeed while using this medicine. How should I take clopidogrel? Follow all directions on your prescription label and read all medication guides or instruction sheets. Use these medicines exactly as directed. Clopidogrel can be taken with or without food. Clopidogrel is sometimes taken together with aspirin. Take aspirin only if your doctor tells you to. Clopidogrel keeps your blood from coagulating (clotting) and can make it easier for you to bleed, even from a minor injury. Contact your doctor or seek emergency medical attention if you have any bleeding that will not stop. You may need to stop using clopidogrel for a short time before a surgery, medical procedure, or dental work. Any healthcare provider who treats you should know that you are taking clopidogrel. Do not stop taking clopidogrel without first talking to your doctor, even if you have signs of bleeding. Stopping the medicine could increase your risk of a heart attack or stroke. Store at room temperature away from moisture and heat. What happens if I miss a dose? Take the medicine as soon as you can, but skip the missed dose if it is almost time for your next dose. Do not take two doses at one time. What happens if I overdose? Seek emergency medical attention or call the Poison Help line at . Overdose can causeexcessive bleeding. What should I avoid while taking clopidogrel? Avoid alcohol. It can increase your risk of stomach bleeding. Avoid activities that may increase your risk of bleeding or injury. Use extra care to prevent bleeding while shaving or brushing your teeth. If you also take aspirin: Ask a doctor or pharmacist before using medicines for pain, fever, swelling, or cold/flu symptoms. They may contain ingredients similar to aspirin (such as salicylates, ibuprofen, ketoprofen, or naproxen). Taking these products together can increase your risk of bleeding. What are the possible side effects of clopidogrel? Get emergency medical help if you have signs of an allergic reaction: hives; difficult breathing; swelling of your face, lips, tongue, or throat. Clopidogrel increases your risk of bleeding, which can be severe or life- threatening. Call your doctor or seek emergency medical attention if you have bleeding that will not stop, if you have blood in your urine, black or bloody stools, or if you cough up blood or vomit that looks like coffee grounds. Also call your doctor at once if you have: nosebleeds, pale skin, easy bruising, purple spots under your skin or in your mouth; jaundice (yellowing of your skin or eyes); fast heartbeats, shortness of breath; headache, fever, weakness, feeling tired; little or no urination; a seizure; low blood sugar--headache, hunger, sweating, irritability, dizziness, fast heart rate, and feeling anxious or shaky; or signs of a blood clot--sudden numbness or weakness, confusion, problems with vision or speech. Common side effects may include: bleeding. This is not a complete list of side effects and others may occur. Call your doctor for medical advice about side effects. You may report side effects to FDA at 1-399-XWA-1727. What other drugs will affect clopidogrel? Sometimes it is not safe to use certain medications at the same time. Some drugs can affect your blood levels of other drugs you take, which may increase side effects or make the medications less effective. Tell your doctor about all your other medicines, especially: a stomach acid shirring machine operator automatic such as omeprazole, Nexium, or Prilosec; an antidepressant such as citalopram, fluoxetine, sertraline, Cymbalta, Effexor, Lexapro, Pristiq, or Prozac; rifampin; a blood thinner--warfarin, Coumadin, Jantoven; or NSAIDs (nonsteroidal anti-inflammatory drugs)--aspirin, ibuprofen (Advil, Motrin), naproxen (Aleve), celecoxib, diclofenac, indomethacin, meloxicam, and others. This list is not complete. Other drugs may affect clopidogrel, including prescription and jwuj-gho-nnmgbjg medicines, vitamins, and herbal products. Not all possible drug interactions are listed here. Where can I get more information? Your pharmacist can provide more information about clopidogrel. Remember, keep this and all other medicines out of the reach of children, never share your medicines with others, and use this medication only for the indication prescribed. Every effort has been made to ensure that the information provided by [employer]. [employer]') is accurate, up-to-date, and complete, but no guarantee is made to that effect. Drug information contained herein may be time sensitive. [employer] information has been compiled for use by healthcare practitioners and consumers in the [place] and therefore [employer] does not warrant that uses outside of the [place] are appropriate, unless specifically indicated otherwise. [employer] drug information does not endorse drugs, diagnose patients or recommend therapy. [employer] drug information isan informational resource designed to assist licensed healthcare practitioners in caring for their p atients and/or to serve consumers viewing this service as a supplement to, and not a substitute for, the expertise, skill, knowledge and judgment of healthcare practitioners. The absence of a warningfor a given drug or drug combination in no way should be construed to indicate that the drug or drug combination is safe, effective or appropriate for any given patient. [employer] does not assume any responsibility for any aspect of healthcare administered with the aid of information [employer] provides. The information contained herein is not intended to cover all possible uses, directions, precautions, warnings, drug interactions, allergic reactions, or adverse effects. If you have questions about the drugs you are taking, check with your doctor, nurse or pharmacist. Copyright 2800-9125 [employer]. Version: 18.01. Revision Date: 05/10/2020. rosuvastatin (brianne HUSSEIN [facility] tin) Meche Escobar What is the most important information I should know about rosuvastatin? Do not use rosuvastatin if you are . It could harm the unborn baby. You should not take rosuvastatin if you have liver disease, or if you a baby. What is rosuvastatin? Rosuvastatin is used together with diet to lower blood levels of 'bad' cholesterol (low-density lipoprotein, or LDL), to increase levels of 'good' cholesterol (high-density lipoprotein, or HDL), and to lower triglycerides (a type of fat in the blood). Rosuvastatin is also used to treat hereditary types of high cholesterol (hypercholesterolemia): Theheterozygous type (inherited from one parent) or the homozygous type (inherited from both parents). For the heterozygous type, rosuvastatin can be used in children who are at least 8 years old. For the homozygous type, rosuvastatin can be used in children as young as 7 years old. The Ezallor brand of rosuvastatin is for use only in adults. Crestor is also used in adults to slow the progression of atherosclerosis (a build-up of plaque in blood vessels that can block blood flow). Crestor is also used to lower the risk of stroke, heart attack, and other complications in men 50 years and older or women 60 years and older who have coronary heart disease or other risk factors. Rosuvastatin may also be used for purposes not listed in this medication guide. What should I discuss with my healthcare provider before taking rosuvastatin? You should not take rosuvastatin if you are allergic to it, or if you have: liver disease; or if you are or breast-feeding. Do not take rosuvastatin if you are . It could harm the unborn baby. Use effective control to prevent while you are taking rosuvastatin. Stop taking rosuvastatin and tell yourdoctor right away if you become . Do not breastfeed while you are taking rosuvastatin. Tell your doctor if you have ever had: liver problems; kidney disease; a thyroid disorder; a habit of drinking more than 2 alcoholic beverages per day; if you are of descent; or if you are 65 or older. Rosuvastatin can cause the breakdown of muscle tissue, which can lead to kidney failure. This happens more often in women, in older adults, or people who have kidney disease or poorly controlled hypothyroidism (underactive thyroid). People of descent may absorb rosuvastatin at a higher rate than other people. Make sure your doctor knows if you are . You may need a lower than normal starting dose. How should I take rosuvastatin? Follow all directions on your prescription label and read all medication guides or instruction sheets. Your doctor may occasionally change your dose. Use the medicine exactly as directed. Rosuvastatin is usually taken once a day, with or without food. Take the medicine at the same time each day. While using rosuvastatin, you may need frequent blood tests. Keep using this medicine as directed, even if you feel well. High cholesterol usually has no symptoms. You may need to take rosuvastatin on a long-term basis. You may need to stop using rosuvastatin for a short time if you have: uncontrolled seizures; an electrolyte imbalance (such as high or low potassium levels in your blood); severely low blood pressure; a severe infection or illness; dehydration; or surgery or a medical emergency. You should not stop using rosuvastatin unless your doctor tells you to. Rosuvastatin is only part of a treatment program that may also include diet, exercise, and weight control. Follow your doctor's instructions very closely. Store at room temperature away from moisture, heat, and light. What happens if I miss a dose? Take the medicine as soon as you can, but skip the missed dose if you are more than 12 hours late for the dose. Do not use two doses at one time. What happens if I overdose? Seek emergency medical attention or call the Poison Help line at . What should I avoid while taking rosuvastatin? Avoid eating foods high in fat or cholesterol, or rosuvastatin will not be as effective. Avoid drinking alcohol. It can raise triglyceride levels and may increase your risk of liver damage. Some antacids can make it harder for your body to absorb rosuvastatin. Avoid taking an antacid thatcontains aluminum or magnesium within 2 hours after taking rosuvastatin. What are the possible side effects of rosuvastatin? Get emergency medical help if you have signs of an allergic reaction: hives; difficult breathing; swelling of your face, lips, tongue, or throat. Call your doctor at once if you have: unexplained muscle pain, tenderness, or weakness; muscle weakness in your hips, shoulders, neck, and back; trouble lifting your arms, trouble climbing or standing; confusion, memory problems; or liver problems--upper stomach pain, tiredness, loss of appetite, dark urine, jaundice (yellowing ofthe skin or eyes). Common side effects may include: headache; weakness; muscle aches; or nausea, stomach pain. This is not a complete list of side effects and others may occur. Call your doctor for medical advice about side effects. You may report side effects to FDA at 2-046-OLU-4363. What other drugs will affect rosuvastatin? When you start or stop taking rosuvastatin, your doctor may need to adjust the doses of any other medicines you take on a regular basis. Using certain medicines together with rosuvastatin can increase your risk of serious muscle problems. It is very important to tell your doctor about all medicinesyou use, and those you start or stop using during your treatment with rosuvastatin, especially: colchicine; cyclosporine; antifungal medicine--fluconazole, itraconazole, ketoconazole; antiviral medicine to treat HIV or hepatitis C--atazanavir, fosamprenavir, ledipasvir, lopinavir, ritonavir, simeprevir, sofosbuvir, tipranavir, Epclusa, Mavyret, Viekira, Vosevi, and others; a blood thinner--warfarin, Coumadin, Jantoven; cancer medicine--darolutamide, regorafenib; medicines that contain niacin or nicotinic acid--vitamin B3, Advicor, Niaspan, Niacor, Simcor, Slo-Niacin, and others; or other cholesterol medications--fenofibrate, gemfibrozil. This list is not complete. Other drugs may affect rosuvastatin, including prescription and szkl-jzb-vbyfjab medicines, vitamins, and herbal products. Not all possible drug interactions are listed here. Where can I get more information? Your pharmacist can provide more information about rosuvastatin. Remember, keep this and all other medicines out of the reach of children, never share your medicines with others, and use this medication only for the indication prescribed. Every effort has been made to ensure that the information provided by [employer]. [employer]') is accurate, up-to-date, and complete, but no guarantee is made to that effect. Drug information contained herein may be time sensitive. [employer] information has been compiled for use by healthcare practitioners and consumers in the [place] and therefore [employer] does not warrant that uses outside of the [place] are appropriate, unless specifically indicated otherwise. [employer] drug information does not endorse drugs, diagnose patients or recommend therapy. [employer] drug information isan informational resource designed to assist licensed healthcare practitioners in caring for their p atients and/or to serve consumers viewing this service as a supplement to, and not a substitute for, the expertise, skill, knowledge and judgment of healthcare practitioners. The absence of a warningfor a given drug or drug combination in no way should be construed to indicate that the drug or drug combination is safe, effective or appropriate for any given patient. [employer] does not assume any responsibility for any aspect of healthcare administered with the aid of information [employer] provides. The information contained herein is not intended to cover all possible uses, directions, precautions, warnings, drug interactions, allergic reactions, or adverse effects. If you have questions about the drugs you are taking, check with your doctor, nurse or pharmacist. Copyright 9884-4538 [facility] [employer]. Version: 13.. Revision Date: 11/16/2019. metoprolol (oral/injection) (me TOE pro lol) Kapspargo Sprinkle, Lopressor, Metoprolol Succinate ER, Metoprolol Tartrate, Toprol-XL What is the most important information I should know about metoprolol? You should not use this medicine if you have a serious heart problem (heart block, sick sinus syndrome, slow heart rate), severe circulation problems, severe heart failure, or a history of slow heartbeats that caused fainting. What is metoprolol? Metoprolol is a beta-janay that affects the heart and circulation (blood flow through arteries and veins). Metoprolol is used to treat angina (chest pain) and hypertension (high blood pressure). It is alsoused to lower your risk of or needing to be hospitalized for heart failure. Metoprolol injection is used during the early phase of a heart attack to lower the risk of . Metoprolol may also be used for other purposes not listed in this medication guide. What should I discuss with my healthcare provider before taking metoprolol? You should not use this medicine if you are allergic to metoprolol, or other beta-blockers (atenolol, carvedilol, labetalol, nadolol, nebivolol, propranolol, sotalol, and others), or if you have: a serious heart problem such as heart block, sick sinus syndrome, or slow heart rate; severe circulation problems; severe heart failure (that required you to be in the hospital); or a history of slow heart beats that have caused you to faint. Tell your doctor if you have ever had: asthma, chronic obstructive pulmonary disease (COPD), sleep apnea, or other breathing disorder; diabetes (taking metoprolol may make it harder for you to tell when you have low blood sugar); liver disease; congestive heart failure; problems with circulation (such as Raynaud's syndrome); a thyroid disorder; or pheochromocytoma (tumor of the adrenal gland). Do not give this medicine to a child without medical advice. Tell your doctor if you are or plan to become . It is not known whether metoprololwill harm an unborn baby. However, having high blood pressure during may cause complications such as diabetes or eclampsia (dangerously high blood pressure that can lead to medical problemsin both mother and baby). The benefit of treating hypertension may outweigh any risks to the baby. Ask a doctor before using this medicine if you are breast-feeding. Metoprolol can pass into breast milk and may cause dry skin, dry mouth, diarrhea, constipation, or slow heartbeats in your baby. How should I take metoprolol? Follow all directions on your prescription label and read all medication guides or instruction sheets. Your doctor may occasionally change your dose. Use the medicine exactly as directed. Metoprolol should be taken with a meal or just after a meal. Take the medicine at the same time each day. Swallow the capsule whole and do not crush, chew, break, or open it. A Toprol XL tablet can be divided in half if your doctor has told you to do so. Swallow the half-tablet whole, without chewing or crushing. Measure liquid medicine carefully. Use the dosing syringe provided, or use a medicine dose-measuring device (not a kitchen spoon). You will need frequent medical tests, and your blood pressure will need to be checked often. If you need surgery, tell the surgeon ahead of time that you are using metoprolol. You should not stop using metoprolol suddenly. Stopping suddenly may make your condition worse. If you have high blood pressure, keep using this medicine even if you feel well. High blood pressure often has no symptoms. You may need to use metoprolol for the rest of your life. Store at room temperature away from moisture and heat. Metoprolol injection is given as an infusion into a vein. A healthcare provider will give you this injection in a medical setting where your heart and blood pressure can be monitored. Metoprolol injections are given for only a short time before switching you to the oral form of this medicine. What happens if I miss a dose? Skip the missed dose and use your next dose at the regular time. Do not use two doses at one time. What happens if I overdose? Seek emergency medical attention or call the Poison Help line at . What should I avoid while taking metoprolol? Avoid driving or hazardous activity until you know how this medicine will affect you. Your reactions could be impaired. Drinking alcohol can increase certain side effects of metoprolol. What are the possible side effects of metoprolol? Get emergency medical help if you have signs of an allergic reaction: hives; difficulty breathing; swelling of your face, lips, tongue, or throat. Call your doctor at once if you have: very slow heartbeats; a light-headed feeling, like you might pass out; shortness of breath (even with mild exertion), swelling, rapid weight gain; or cold feeling in your hands and feet. Common side effects may include: dizziness, tired feeling; depression, confusion, memory problems; nightmares, trouble sleeping; diarrhea; or mild itching or rash. This is not a complete list of side effects and others may occur. Call your doctor for medical advice about side effects. You may report side effects to FDA at 2-419-FMM-4679. What other drugs will affect metoprolol? Tell your doctor about all your current medicines. Many drugs can affect metoprolol, especially: any other heart or blood pressure medications; epinephrine (Epi-Pen); an antidepressant; an ergot medicine--dihydroergotamine, ergonovine, ergotamine, methylergonovine; or an MAO inhibitor--isocarboxazid, linezolid, phenelzine, rasagiline, selegiline, tranylcypromine. This list is not complete and many other drugs may affect metoprolol. This includes prescription and goex-cdj-jskhkjy medicines, vitamins, and herbal products. Not all possible drug interactions are listed here. Where can I get more information? Your pharmacist can provide more information about metoprolol. Remember, keep this and all other medicines out of the reach of children, never share your medicines with others, and use this medication only for the indication prescribed. Every effort has been made to ensure that the information provided by [employer]. ('[employer]') is accurate, up-to-date, and complete, but no guarantee is made to that effect. Drug information contained herein may be time sensitive. [employer] information has been compiled for use by healthcare practitioners and consumers in the [place] and therefore [employer] does not warrant that uses outside of the [place] are appropriate, unless specifically indicated otherwise. [employer] drug information does not endorse drugs, diagnose patients or recommend therapy. [employer] drug information isan informational resource designed to assist licensed healthcare practitioners in caring for their p atients and/or to serve consumers viewing this service as a supplement to, and not a substitute for, the expertise, skill, knowledge and judgment of healthcare practitioners. The absence of a warningfor a given drug or drug combination in no way should be construed to indicate that the drug or drug combination is safe, effective or appropriate for any given patient. [employer] does not assume any responsibility for any aspect of healthcare administered with the aid of information [employer] provides. The information contained herein is not intended to cover all possible uses, directions, precautions, warnings, drug interactions, allergic reactions, or adverse effects. If you have questions about the drugs you are taking, check with your doctor, nurse or pharmacist. Copyright [id number] [employer]. Version: 19.. Revision Date: 09/18/2022. Education Materials HEART CATHETERIZATION/PCI (groin) Discharge Instructions DIET INSTRUCTIONS Drink plenty of fluids for the next 48 hours to help your kidneys flush the heart cath dye out of your system ACTIVITIES May go up and down stairs CAREFULLY Do not drive car FOR 24 HOURS No heavy lifting GREATER THAN 10 POUNDS or pushing or straining FOR 2 DAYS Someone must stay with you at home after the procedure until the morning. BATHING/SHOWERING May tub bathe in 1 week May shower tomorrow WOUND CARE You will go home with a Band-Aid over your heart cath site. Keep a Band-Aid on for the next 24 hours and then leave open to air. Some degree of bruising and tenderness is normal around the heart cath site. It will take a while for any bruising to completely resolve. Keep your site clean and dry. You need to report the following to your business applications manager: Any draining or oozing from the site Any swelling at the site Any increased pain or tenderness at the site Any numbness in your leg where the procedure was done Any signs of infection IMPORTANT! CALL 911 FOR ANY BLEEDING OR SWELLING AT THE PROCEDURE SITE If there is any large amount of bleeding, you or someone else need to apply direct pressure to the site (just like the nurse did in the heart lab after your procedure). It is very important that you hold constant pressure. Do not release the pressure to check if the bleeding has stopped. You then need to be transported to the nearest emergency room. WATCH FOR SIGNS OF INFECTION (Usually appears 36-48 hours after surgery) A temperature above 100.5 Redness or swelling Increased pain Foul odor or drainage If you have any questions, please call your doctor at the number listed on your follow up instructions. Follow all instructions given to you by your physician Document Released: 01/27/2006 Document Revised: 01/13/2013 Document Reviewed: 01/28/2014 ExitCare Patient Information 2015 [employer]. This information is not intended to replace advicegiven to you by your health care provider. Make sure you discuss any questions you have with your health care provider. HEART CATHETERIZATION/PCI (radial) Discharge Instructions DIET Drink plenty of fluids for the next 48 hours to help your kidneys flush the heart cath dye out of your system ACTIVITY For the next 48 hours: Do not deep bend the wrist Do not lift, push, or pull anything over 5 pounds Do not use the hand/arm to support your weight when rising from a chair or bed Do not drive For the next 7 days: Do not submerse your procedure site in water Do not swim, wash dishes, or take tub baths You may write, eat, type, and shower WOUND CARE Keep a Band-Aid on your procedure site for the next 3-4 days Change the Band-Aid daily or if it gets wet/soiled AFTER YOU GO HOME, CALL YOUR DOCTOR FOR: Any increase in bruising or tenderness from the procedure site Any redness, pus, or other signs of infection at the site A temperature above 100.5 Severe pain at the site DIAL 911 AND RETURN TO THE HOSPITAL FOR: Any bleeding from the procedure site. The site may be bruised or tender, but it should not be bleeding at any time. If your site begins to bleed, hold firm pressure on it and dial 911 to return to the hospital Any increase in swelling at the procedure site. An increase in swelling could mean the area is bleeding under the skin. Hold firm pressure to the site and dial 911 to return to the hospital Document Released: 01/27/2006 Document Revised: 01/13/2013 Document Reviewed: 01/28/2014 ExitCare Patient Information 2015 [employer]. This information is not intended to replace advicegiven to you by your health care provider. Make sure you discuss any questions you have with your health care provider. Additional Information VACCINATE! IT SAVES LIVES! Members of the community who have not yet received the COVID-19 vaccine and would like to receive it can visit one of [facility] vaccine clinics. There are many vaccine clinic locations within the [facility]. For locations and available times, please visit [email or web address] I (morecontent not included)... 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 12-09-2024 Progress note Date of Service 01/19/2024 Chief Complaint Transfer from [facility] with hypertension and concerns for STEMI Subjective Patient was tachycardic this morning with heart rate in the 140s. She stated that she was feeling anxious. She had no complaints of chest pain, shortness of breath, nausea, vomiting or diaphoresis. Objective Vitals and Measurements T: 36.4 C (Oral) TMIN: 36.4 C (Oral) TMAX: 37.0 C (Oral) HR: 86 (Monitored) RR: 16 BP: 105/62 SpO2:98% Intake and Output 7AM Yesterday to 7AM Today Intake and Output (Last 24 hours) Intake Oral Intake 340.00 Output Urinary Catheter Output: 1950.00 Total Summary Total Intake 340.00 Total Output 1950.00 Fluid Balance -1610.00 Physical Exam GENERAL APPEARANCE: Alert, cooperative and anxious HEENT: normocephalic, PERRL, EOMI, on 2 L nasal cannula NECK: Soft, supple, no notable JVD. CARDIOVASCULAR: Tachycardic. S1 and S2 present. no murmur, gallops or rubs. No carotid bruits. PULMONARY:vesicular breath sounds. No rales or rhonchi ABDOMEN: Positive bowel sounds x 4. Soft, nondistended, nontender. No guarding or rebound. MUSKULOSKELETAL: No joint erythema or tenderness, no right paraspinal muscle tenderness to palpation with not point tenderness EXTREMITIES: No significant deformity or joint abnormality. no edema bilateral lower extremities,nocyanosis or pallor. Peripheral pulses intact. NEUROLOGICAL: Strength 5/5 bilaterally, Sensation symmetric and intact throughout. SKIN: Skin normal color, dry PSYCHIATRIC: Alert and oriented x3, normal mood and affect Weight Dosing Weight: 66 kg (01/18/24) Medications Medications (21) Active Scheduled: (9) aspirin 81 mg Chewable 81 mg 1 tab(s), Oral, qDayM clopidogrel 75 mg Tablet 75 mg 1 tab(s), Oral, qDay crisaborole 2% topical ointment 1 sammy, Topical, BID dorzolamide ophthalmic 2% Solution 1 drop(s), Eyes, both, TID duloxetine [address] capsule 60 mg 1 cap(s), Oral, qDay gabapentin 100 mg Capsule 200 mg 2 cap(s), Oral, TID losartan 25 mg tablet 25 mg 1 tab(s), Oral, qDay metoprolol succinate 25 mg ER tablet 25 mg 1 tab(s), Oral, BIDM rosuvastatin 20 mg tablet 20 mg 1 tab(s), Oral, qHS Continuous: (1) nitroglycerin 50 mg/250 mL D5W 50 mg [5 mcg/min] + Dextrose 5% Premix Diluent 250 mL 250 mL, Intravenous, 1.5 mL/hr PRN: (11) dextrose 50% Solution Disp syringe 50 mL 12.5 gram(s) 25 mL, IV Push, As[employer] magnesium sulfate 4 gram(s)/100mL PMX 4 g 100 mL, IV Piggyback, As[employer]irected magnesium sulfate 50% (500mg/mL) 6 g 12 mL, IV Piggyback, As[employer]irected magnesium sulfate PMX 2 g 50 mL, IV Piggyback, As[employer]irected melatonin 3 mg tablet 3 mg 1 tab(s), Oral, qHS ocular lubricant preserved Soln 15 mL 1 drop(s), Eyes, both, BID ondansetron 2 mg/ 1 mL 2 mL INJ 2 mg 1 mL, IV Push, q8h potassium chloride (PMX) 20 mEq/100 mL 20 mEq 100 mL, IV Piggyback, AsDirected potassium chloride 20 mEq ER tablet 20 mEq 1 tab(s), Oral, AsDirected potassium chloride 20 mEq ER tablet 40 mEq 2 tab(s), Oral, AsDirected potassium chloride 20 mEq ER tablet 40 mEq 2 tab(s), Oral, AsDirected Lab Results 01/18 03:57 WBC: 11.8 H Hgb: 12.0 Hct: 35.5 Platelet: 226 Neutrophil %: 74.1 Glucose Level: 143 H Sodium Level: 134 L Potassium Level: 3.2 L BUN: 16.0 Creatinine Lvl (s): 0.93 Imaging Results and Diagnostics XR Chest 1 View Result Date: January 18, 2024 Verified By: HERSON GOLDSTEIN MD CLINICAL STATEMENT: IMPRESSION: No acute findings. EKG Electrocardiogram (EKG) - InProcess -- 01/19/24 9:57:00 EST Electrocardiogram (EKG) - InProcess -- 01/19/24 15:32:00 EST Assessment/Plan NSTEMI History of hypertension DVT prophylaxis FULL CODE 83-year-old female with PMH of hypertension and chronic pain, presented from [facility] as a transfer with concerns for STEMI. At [facility] patient underwent cardiac catheterization which showed severe multivessel CAD involving the LAD, OM and RCA. Patient patient went into V-fib after the RCA was injected, she then underwent shock x 3, before she revived. -01/19/2024: Patient underwent PCI this afternoon with Dr. Hayes. Tolerated procedure well. -Patient was tachycardic with heart rate of 140s this morning. Patient is on metoprolol 50 mg QD athome. Started metoprolol 25 twice daily before PCI procedure. Will reassess to see if home metoprolol dose can be restarted. -Patient had no further complaints of chest pain. Nitroglycerin drip was discontinued as this couldcontribute to patient's tachycardia. -Post procedure, patient's HR was stable. -Will continue aspirin, Plavix, statin and home medications as appropriate. Time Spent 30 minutes Digitally Signed by PAM HERNANDEZ MD on 01/19/2024 07:07 PM Digitally Signed by PAM HERNANDEZ MD on 01/19/2024 10:17 PM Digitally Signed by ALIN THOMPSON MD [facility] [id number] NoteSINUS RHYTHM INFERIOR INFARCT, OLD Electronic Signature: AKHIL THOMAS MD 01/20/2024 19:03:43[facility] 12-09-2024 Note* Exam Date Time Procedure Performing Provider Status 01/19/24 2:03 PM Percut Transluminal Coronary Angioplasty Auth (Verified) [facility] 12-09-2024 Progress note Date of Service 01/18/2024 Chief Complaint Transfer from [facility] with hypertension and concerns for STEMI Subjective Patient stated that she is still having some chest pain which resolves with nitroglycerin. Chest pain is dull and aching. Patient stated that she does have fibromyalgia and it is difficult to determine if chest pain is from her chronic pain. She denied any palpitation shortness of breath or radiating chest pain to the jaw, arm or back. Objective Vitals and Measurements T: 36.6 C (Oral) TMIN: 36.6 C (Oral) TMAX: 36.7 C (Oral) HR: 105 (Monitored) RR: 36 BP: 149/55 SpO2: 97% HT: 157.5 cm WT: 66 kg BMI: 26.61 Intake and Output 7AM Yesterday to 7AM Today Intake and Output (Last 24 hours) Intake Oral Intake 0.00 Output Urine Voided 350.00 Urinary Catheter Output: 300.00 Stool Count 0.00 Total Summary Total Intake 0.00 Total Output 650.00 Fluid Balance -650.00 Physical Exam GENERAL APPEARANCE: Alert, cooperative anxious HEENT: normocephalic, PERRL, EOMIl, hearing and vision is grossly intact. NECK: Soft, supple, CARDIOVASCULAR: Regular rate and rhythm. S1 and S2 present.. nor Murmur, gallops or rubs. No carotid bruits. PULMONARY: CTABL . No rales or rhonchi ABDOMEN: Positive bowel sounds x 4. Soft, nondistended, nontender. No guarding or rebound. MUSKULOSKELETAL: No joint erythema or tenderness, no right paraspinal muscle tenderness to palpation with not point tenderness EXTREMITIES: No significant deformity or joint abnormality. no edema bilateral lower extremities,nocyanosis or pallor. Peripheral pulses intact. NEUROLOGICAL: Strength 5/5 bilaterally, Sensation symmetric and intact throughout. SKIN: Skin normal color, dry PSYCHIATRIC: Alert and oriented x3, normal mood and affect Weight Dosing Weight: 66 kg (01/18/24) Medications Medications (12) Active Scheduled: (2) aspirin 81 mg Chewable 81 mg 1 tab(s), Oral, qDayM rosuvastatin 20 mg tablet 20 mg 1 tab(s), Oral, qHS Continuous: (2) heparin 25,000 unit(s) [12 unit(s)/kg/hr] + Dextrose 5% Premix Diluent 250 mL 250 mL, Intravenous, 7.92 mL/hr nitroglycerin 50 mg/250 mL D5W 50 mg [5 mcg/min] + Dextrose 5% Premix Diluent 250 mL 250 mL, Intravenous, 1.5 mL/hr PRN: (8) dextrose 50% Solution Disp syringe 50 mL 12.5 gram(s) 25 mL, IV Push, AsDirected magnesium sulfate 4 gram(s)/100mL PMX 4 g 100 mL, IV Piggyback, AsDirected magnesium sulfate 50% (500mg/mL) 6 g 12 mL, IV Piggyback, As[employer] magnesium sulfate PMX 2 g 50 mL, IV Piggyback, As[employer] potassium chloride (PMX) 20 mEq/100 mL 20 mEq 100 mL, IV Piggyback, As[employer] potassium chloride 20 mEq ER tablet 20 mEq 1 tab(s), Oral, AsDirected potassium chloride 20 mEq ER tablet 40 mEq 2 tab(s), Oral, AsDirected potassium chloride 20 mEq ER tablet 40 mEq 2 tab(s), Oral, AsDirected Lab Results 01/17 04:51 WBC: 10.9 H Hgb: 14.5 Hct: 42.2 Platelet: 233 Neutrophil %: 90.3 H Protime: 11.9 Protime: 11.8 PT International Ratio: 1.0 PT International Ratio: 1.0 Glucose Level: 155 H Sodium Level: 136 Potassium Level: 4.1 BUN: 20.0 Creatinine Lvl (s): 0.78 EKG EKG - Completed -- 01/18/24 4:09:00 EST, admission Electrocardiogram (EKG) - Ordered -- 01/18/24 4:36:00 EST Electrocardiogram (EKG) - Ordered -- 01/18/24 7:36:00 EST, Unless 2 EKGs already done in the past 6 hours Electrocardiogram (EKG) - Ordered -- 01/18/24 10:36:00 EST Assessment/Plan NSTEMI History of hypertension DVT prophylaxis FULL CODE 83-year-old female with PMH of hypertension and chronic pain, presented from [facility] as a transfer with concerns for STEMI. At [facility] patient underwent cardiac catheterization which showed severe multivessel CAD involving the LAD, OM and RCA. Patient patient went into V-fib after the RCA was injected, she then underwent 3 shock, before she revived. Patient was started on IV heparin drip and IV nitroglycerin, and was transferred to [facility] with STEMI alert. Will continue heparin and nitroglycerin for now. Coronary angiographic imaging was reviewed with Dr. Hayes, plan is to do PCI to OM1 and LAD tomorrow on Friday01/19/2024. Will continue aspirin and statin Time Spent 30 minutes Digitally Signed by PAM HERNANDEZ MD on 01/18/2024 03:37 PM Digitally Signed by PAM HERNANDEZ MD on 01/18/2024 03:[address] [facility] [id number] NoteSINUS TACHYCARDIA VENTRICULAR PREMATURE COMPLEX INFERIOR INFARCT, OLD Electronic Signature: AKHIL THOMAS MD 01/20/2024 19:03:35[facility] 12-08-2024 Progress note Date of Service 01/18/2024 Chief Complaint Transfer from [facility] with hypertension and concerns for STEMI Subjective Patient stated that she is still having some chest pain which resolves with nitroglycerin. Chest pain is dull and aching. Patient stated that she does have fibromyalgia and it is difficult to determine if chest pain is from her chronic pain. She denied any palpitation shortness of breath or radiating chest pain to the jaw, arm or back. Objective Vitals and Measurements T: 36.6 C (Oral) TMIN: 36.6 C (Oral) TMAX: 36.7 C (Oral) HR: 105 (Monitored) RR: 36 BP: 149/55 SpO2: 97% HT: 157.5 cm WT: 66 kg BMI: 26.61 Intake and Output 7AM Yesterday to 7AM Today Intake and Output (Last 24 hours) Intake Oral Intake 0.00 Output Urine Voided 350.00 Urinary Catheter Output: 300.00 Stool Count 0.00 Total Summary Total Intake 0.00 Total Output 650.00 Fluid Balance -650.00 Physical Exam GENERAL APPEARANCE: Alert, cooperative anxious HEENT: normocephalic, PERRL, EOMIl, hearing and vision is grossly intact. NECK: Soft, supple, CARDIOVASCULAR: Regular rate and rhythm. S1 and S2 present.. nor Murmur, gallops or rubs. No carotid bruits. PULMONARY: CTABL . No rales or rhonchi ABDOMEN: Positive bowel sounds x 4. Soft, nondistended, nontender. No guarding or rebound. MUSKULOSKELETAL: No joint erythema or tenderness, no right paraspinal muscle tenderness to palpation with not point tenderness EXTREMITIES: No significant deformity or joint abnormality. no edema bilateral lower extremities,nocyanosis or pallor. Peripheral pulses intact. NEUROLOGICAL: Strength 5/5 bilaterally, Sensation symmetric and intact throughout. SKIN: Skin normal color, dry PSYCHIATRIC: Alert and oriented x3, normal mood and affect Weight Dosing Weight: 66 kg (01/18/24) Medications Medications (12) Active Scheduled: (2) aspirin 81 mg Chewable 81 mg 1 tab(s), Oral, qDayM rosuvastatin 20 mg tablet 20 mg 1 tab(s), Oral, qHS Continuous: (2) heparin 25,000 unit(s) [12 unit(s)/kg/hr] + Dextrose 5% Premix Diluent 250 mL 250 mL, Intravenous, 7.92 mL/hr nitroglycerin 50 mg/250 mL D5W 50 mg [5 mcg/min] + Dextrose 5% Premix Diluent 250 mL 250 mL, Intravenous, 1.5 mL/hr PRN: (8) dextrose 50% Solution Disp syringe 50 mL 12.5 gram(s) 25 mL, IV Push, AsDirected magnesium sulfate 4 gram(s)/100mL PMX 4 g 100 mL, IV Piggyback, AsDirected magnesium sulfate 50% (500mg/mL) 6 g 12 mL, IV Piggyback, AsDirected magnesium sulfate PMX 2 g 50 mL, IV Piggyback, AsDirected potassium chloride (PMX) 20 mEq/100 mL 20 mEq 100 mL, IV Piggyback, AsDirected potassium chloride 20 mEq ER tablet 20 mEq 1 tab(s), Oral, AsDirected potassium chloride 20 mEq ER tablet 40 mEq 2 tab(s), Oral, AsDirected potassium chloride 20 mEq ER tablet 40 mEq 2 tab(s), Oral, AsDirected Lab Results 01/17 04:51 WBC: 10.9 H Hgb: 14.5 Hct: 42.2 Platelet: 233 Neutrophil %: 90.3 H Protime: 11.9 Protime: 11.8 PT International Ratio: 1.0 PT International Ratio: 1.0 Glucose Level: 155 H Sodium Level: 136 Potassium Level: 4.1 BUN: 20.0 Creatinine Lvl (s): 0.78 EKG EKG - Completed -- 01/18/24 4:09:00 EST, admission Electrocardiogram (EKG) - Ordered -- 01/18/24 4:36:00 EST Electrocardiogram (EKG) - Ordered -- 01/18/24 7:36:00 EST, Unless 2 EKGs already done in the past 6 hours Electrocardiogram (EKG) - Ordered -- 01/18/24 10:36:00 EST Assessment/Plan NSTEMI History of hypertension DVT prophylaxis FULL CODE 83-year-old female with PMH of hypertension and chronic pain, presented from [facility] as a transfer with concerns for STEMI. At [facility] patient underwent cardiac catheterization which showed severe multivessel CAD involving the LAD, OM and RCA. Patient patient went into V-fib after the RCA was injected, she then underwent 3 shock, before she revived. Patient was started on IV heparin drip and IV nitroglycerin, and was transferred to [facility] with STEMI alert. Will continue heparin and nitroglycerin for now. Coronary angiographic imaging was reviewed with Dr. Hayes, plan is to do PCI to OM1 and LAD tomorrow on Friday01/19/2024. Will continue aspirin and statin Time Spent 30 minutes Digitally Signed by PAM HERNANDEZ MD on 01/18/2024 03:37 PM Digitally Signed by PAM HERNANDEZ MD on 01/18/2024 03:[address] [facility] [id number] Evaluation + Plan noteExtracted from: Title:History and Physical Author:EDGAR ANDRE MD Date:01/18/24 NSTEMI History of hypertension DVT prophylaxis CODE STATUS Past medical history hypertension, chronic pains. At [facility] patient underwent cardiac catheterization which showed severe multivessel CAD involving the LAD, OM and RCA it appears patient went into V-fib after the RCA was injected, she then underwent 3 shock, before she revived. Patient was started on IV heparin drip and IV nitroglycerin, and was transferred to [facility] with STEMI alert. Patient is currently chest rate, will continue heparin and nitroglycerin for now. Coronary angiographic imaging was reviewed with Dr. Hayes, plan is to do PCI to OM1 and LAD on 01/19/2024. Will continue aspirin and statin We will get an echocardiogram to look at structural and functional aspects of the heart. Will continue to trend troponins. For risk stratification we will get A1c, TSH and lipid panel. Monitor patient clinically and vitally. DVT prophylaxis heparin drip CODE STATUS full Diet n.p.o. after midnight for the procedure. Addendum by RODRIGO HAYES MD on January 18, 2024 11:12:08 EST I have personally seen, examined, and evaluated the patient on the encounter date. I have reviewed the fellow s documentation and agree with the fellow s findings and plan as documented, unless otherwise stated. Discussed with patient and family at bedside. Decline surgery. Discussed PCI to LAD and OM. RCA non dominant and will be medically managed at this time. Patient on nitro drip and chest pain free. Will plan on PCI Friday if remains stable. Future Appointments Appointment Date:02/18/2024 11:30:00 AM Scheduled Provider:SAMANTHA JOYNER [facility] Appoint[facility] Type:[facility] Follow Up [facility] 12-08-2024 History and physical note Date of Service 01/18/2024 Chief Complaint Transfer from [facility] with hypertension and concerns for STEMI History of Present Illness 83-year-old female presented from [facility] as a transfer with concerns for STEMI. Past medical history significant for hypertension and chronic pain. Patient presented to [facility] ER this morning with concerns of elevated blood pressure and intermittent headaches that been going on since last couple of days. On presentation to ER her blood pressure was in 190s, there was a concern for hypertensive emergency intracranial bleed. Patient was given IV hydralazine and CT head was ordered EKG was normal CT head came back normal however shortly afterreturning from CT scan patient started complaining of midsternal chest pain. Chest pain was not sharp it was not radiating to her arm or jaw. Aspirin was ordered troponins remained negative. EKG was repeated, third EKG showed worsening ST changes, there were some elevations in aVR as well as depressions in the anterolateral need, with these new EKG changes, STEMI alert was called. She underwent a cardiac catheterization which showed severe multivessel CAD involving the LAD, OM, and RCA. It appears patient went into VT/V-fib after the RCA was injected she then underwent 3 shocks. 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 When patient arrived patient was chest pain-free on IV heparin drip and IV nitroglycerin. On presentation to [facility], she was chest pain-free, was not having any active complaint. She was just anxious about all that happening during the daytime. Patient denies smoking, drinking or any other illicit drug abuse. She does not have other cardiac history of intervention other than hypertension. Review of Systems Negative unless mentioned in HPI Physical Exam Vitals and Measurements HR: 100 (Monitored) RR: 20 BP: 168/80 SpO2: 81% HT: 157.5 cm WT: 66 kg BMI: 26.61 Weight Dosing Weight: 66 kg (01/18/24) GENERAL APPEARANCE: Alert, cooperative anxious HEENT: normocephalic, PERRL, EOMIl, hearing and vision is grossly intact. NECK: Soft, supple, CARDIOVASCULAR: Regular rate and rhythm. S1 and S2 present.. nor Murmur, gallops or rubs. No carotid bruits. PULMONARY: CTABL . No rales or rhonchi ABDOMEN: Positive bowel sounds x 4. Soft, nondistended, nontender. No guarding or rebound. MUSKULOSKELETAL: No joint erythema or tenderness, no right paraspinal muscle tenderness to palpation with not point tenderness EXTREMITIES: No significant deformity or joint abnormality. no edema bilateral lower extremities,nocyanosis or pallor. Peripheral pulses intact. NEUROLOGICAL: Strength 5/5 bilaterally, Sensation symmetric and intact throughout. SKIN: Skin normal color, dry PSYCHIATRIC: Alert and oriented x3, normal mood and affect Lab Results 01/17 04:51 WBC: 10.9 H Hgb: 14.5 Hct: 42.2 Platelet: 233 Neutrophil %: 90.3 H Protime: 11.8 Protime: 11.9 PT International Ratio: 1.0 PT International Ratio: 1.0 Glucose Level: 155 H Sodium Level: 136 Potassium Level: 4.1 BUN: 20.0 Creatinine Lvl (s): 0.78 Imaging Results and Diagnostics XR Chest 1 View Result Date: January 18, 2024 Verified By: HERSON GOLDSTEIN MD CLINICAL STATEMENT: IMPRESSION: No acute findings. Assessment/Plan NSTEMI History of hypertension DVT prophylaxis CODE STATUS Past medical history hypertension, chronic pains. At [facility] patient underwent cardiac catheterization which showed severe multivessel CAD involving the LAD, OM and RCA it appears patient went into V-fib after the RCA was injected, she thenunderwent 3 shock, before she revived. Patient was started on IV heparin drip and IV nitroglycerin, and was transferred to [facility] with STEMI alert. Patient is currently chest rate, will continue heparin and nitroglycerin for now. Coronary angiographic imaging was reviewed with Dr. Hayes, plan is to do PCI to OM1 and LAD on 01/19/2024. Will continue aspirin and statin We will get an echocardiogram to look at structural and functional aspects of the heart. Will continue to trend troponins. For risk stratification we will get A1c, TSH and lipid panel. Monitor patient clinically and vitally. DVT prophylaxis heparin drip CODE STATUS full Diet n.p.o. after midnight for the procedure. Procedure/Surgical History No qualifying data available. Medications Home Medications (6) Active amLODIPine 2.5 mg oral tablet 2.5 mg = 1 tab(s), Oral, qDay DULoxetine 60 mg oral delayed release capsule 60 mg = 1 cap(s), Oral, qDay estradiol 0.025 mg/24 hours weekly transdermal film, extended release 1 patch(es), Topical, qWeek gabapentin 300 mg oral capsule 300 mg = 1 cap(s), Oral, TID metoprolol succinate 50 mg oral TABLET extended release 50 mg = 1 tab(s), Oral, qDay omeprazole 40 mg, Oral, qDay Allergies No active allergies Immunizations No qualifying data available. Code Status Code Status - Ordered -- 01/18/24 4:36:00 EST, Full Code, Constant Order Digitally Signed by EDGAR ANDRE MD on 01/18/2024 06:[address] [facility] [id number] History and physical note Date of Service 01/18/2024 Chief Complaint Transfer from [facility] with hypertension and concerns for STEMI History of Present Illness 83-year-old female presented from [facility] as a transfer with concerns for STEMI. Past medical history significant for hypertension and chronic pain. Patient presented to [facility] ER this morning with concerns of elevated blood pressure and intermittent headaches that been going on since last couple of days. On presentation to ER her blood pressure was in 190s, there was a concern for hypertensive emergency intracranial bleed. Patient was given IV hydralazine and CT head was ordered EKG was normal CT head came back normal however shortly afterreturning from CT scan patient started complaining of midsternal chest pain. Chest pain was not sharp it was not radiating to her arm or jaw. Aspirin was ordered troponins remained negative. EKG was repeated, third EKG showed worsening ST changes, there were some elevations in aVR as well as depressions in the anterolateral need, with these new EKG changes, STEMI alert was called. She underwent a cardiac catheterization which showed severe multivessel CAD involving the LAD, OM, and RCA. It appears patient went into VT/V-fib after the RCA was injected she then underwent 3 shocks. 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 When patient arrived patient was chest pain-free on IV heparin drip and IV nitroglycerin. On presentation to [facility], she was chest pain-free, was not having any active complaint. She was just anxious about all that happening during the daytime. Patient denies smoking, drinking or any other illicit drug abuse. She does not have other cardiac history of intervention other than hypertension. Review of Systems Negative unless mentioned in HPI Physical Exam Vitals and Measurements HR: 100 (Monitored) RR: 20 BP: 168/80 SpO2: 81% HT: 157.5 cm WT: 66 kg BMI: 26.61 Weight Dosing Weight: 66 kg (01/18/24) GENERAL APPEARANCE: Alert, cooperative anxious HEENT: normocephalic, PERRL, EOMIl, hearing and vision is grossly intact. NECK: Soft, supple, CARDIOVASCULAR: Regular rate and rhythm. S1 and S2 present.. nor Murmur, gallops or rubs. No carotid bruits. PULMONARY: CTABL . No rales or rhonchi ABDOMEN: Positive bowel sounds x 4. Soft, nondistended, nontender. No guarding or rebound. MUSKULOSKELETAL: No joint erythema or tenderness, no right paraspinal muscle tenderness to palpation with not point tenderness EXTREMITIES: No significant deformity or joint abnormality. no edema bilateral lower extremities,nocyanosis or pallor. Peripheral pulses intact. NEUROLOGICAL: Strength 5/5 bilaterally, Sensation symmetric and intact throughout. SKIN: Skin normal color, dry PSYCHIATRIC: Alert and oriented x3, normal mood and affect Lab Results 01/17 04:51 WBC: 10.9 H Hgb: 14.5 Hct: 42.2 Platelet: 233 Neutrophil %: 90.3 H Protime: 11.8 Protime: 11.9 PT International Ratio: 1.0 PT International Ratio: 1.0 Glucose Level: 155 H Sodium Level: 136 Potassium Level: 4.1 BUN: 20.0 Creatinine Lvl (s): 0.78 Imaging Results and Diagnostics XR Chest 1 View Result Date: January 18, 2024 Verified By: HERSON GOLDSTEIN MD CLINICAL STATEMENT: IMPRESSION: No acute findings. Assessment/Plan NSTEMI History of hypertension DVT prophylaxis CODE STATUS Past medical history hypertension, chronic pains. At [facility] patient underwent cardiac catheterization which showed severe multivessel CAD involving the LAD, OM and RCA it appears patient went into V-fib after the RCA was injected, she thenunderwent 3 shock, before she revived. Patient was started on IV heparin drip and IV nitroglycerin, and was transferred to [facility] with STEMI alert. Patient is currently chest rate, will continue heparin and nitroglycerin for now. Coronary angiographic imaging was reviewed with Dr. Hayse, plan is to do PCI to OM1 and LAD on 01/19/2024. Will continue aspirin and statin We will get an echocardiogram to look at structural and functional aspects of the heart. Will continue to trend troponins. For risk stratification we will get A1c, TSH and lipid panel. Monitor patient clinically and vitally. DVT prophylaxis heparin drip CODE STATUS full Diet n.p.o. after midnight for the procedure. Procedure/Surgical History No qualifying data available. Medications Home Medications (6) Active amLODIPine 2.5 mg oral tablet 2.5 mg = 1 tab(s), Oral, qDay DULoxetine 60 mg oral delayed release capsule 60 mg = 1 cap(s), Oral, qDay estradiol 0.025 mg/24 hours weekly transdermal film, extended release 1 patch(es), Topical, qWeek gabapentin 300 mg oral capsule 300 mg = 1 cap(s), Oral, TID metoprolol succinate 50 mg oral TABLET extended release 50 mg = 1 tab(s), Oral, qDay omeprazole 40 mg, Oral, qDay Allergies No active allergies Immunizations No qualifying data available. Code Status Code Status - Ordered -- 01/18/24 4:36:00 EST, Full Code, Constant Order Digitally Signed by EDGAR ANDRE MD on 01/18/2024 06:[address] [id number] Note ORIGINAL EXAMINATION: ONE XRAY VIEW OF THE CHEST01/18/2024 5:27 am CHEST ONE VIEW AP/PA COMPARISON: None HISTORY: ORDERING SYSTEM PROVIDED HISTORY: Reason for Exam: Chest Pain FINDINGS: The cardiomediastinal silhouette is normal in appearance. Atherosclerotic calcification of the aorta is noted. No consolidation, pleural effusion, or vascular congestion is seen. The osseous structures are intact. IMPRESSION: No acute findings. Interpreted by: Herson Goldstein MD Preliminary Report By: Herson Goldstein MD Electronically signed By Herson Goldstein MD Dictated Date: 01/18/2024 5:33:13 AM Prelim Date: 01/18/2024 5:35:45 AM Sign Date: 01/18/2024 5:35:45 AM Ordering Provider: [facility]12-08-2024 Cardiology Progress note Patient was paged out as a STEMI alert to [facility] after already being paged out as a STEMIalert at [facility] she underwent a cardiac catheterization which showed severe multivessel CAD involving the LAD, OM, and RCA. It appears patient went into VT/V-fib after the RCA was injected she then underwent 3 shocks. 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 When patient arrived patient was chest pain-free on IV heparin drip and IV nitroglycerin. Coronary angiography images were reviewed with interventionalists on-call. Patient is currentlystable and will be planned for PCI to OM 1 and LAD on Friday Digitally Signed by KENNY KWAN MD on 01/18/2024 05:28 AM Digitally Signed by KENNY KWAN MD on 01/18/2024 05:[address] [facility] [id number] NoteSINUS RHYTHM LEFT ATRIAL ENLARGEMENT BORDERLINE LEFT AXIS DEVIATION NONSPECIFIC ST & T-WAVE ABNORMALITY Electronic Signature: ELLEN MUÑIZ MD 01/18/2024 14:47:25[facility] 12-07-2024 NoteHNO ID: [id number] Author: SHEILA FRANK MD Service: ? Author Type: Physician Type: Progress Notes Filed: 01/17/2024 16:08 Note Text: Virtualist Progress Note Triage Call I have communicated my name and active licensure. The patient's identity and physical location were verified at the time of this visit. Either the patient or their legal claims customer service representative has been informed of the risks and benefits of -- and alternatives to -- treatment through a remote evaluation and consents to proceed with the evaluation remotely. Triage source: Triage Call (Nurse Forest Supervisor, [facility] - NOC Triage, [facility] Triage, [facility] Phone Triage) Was patient downgraded (i.e. disposition other than go to the ED was advised)? No Mode of contact: Audio Only Visit History/Physical Exam: SANTOS today with BP 204/66 Took amlodipine about one hour ago 3pm). P71, 194/62 now. running around since 8am today. Has a SANTOS now (right side of head and improving). Yesterday 179/76 then 152/67 after po amlodipine. Saw SAMMY in office on 12/31 with same SANTOS and reports of recent high BPs. Amoldipine 2.5 mg was ordered for her to take when her BP is >150 systolic. Nurse Triage Disposition (If call is from [facility], [facility] nurse triage, or an [facility], the disposition is Go to ED Now): See provider within 4 hours Virtualist Recommended Disposition: Go to ED if she still has a SANTOS in 30-60 minutes. She should call PCP with current BP readings Signed in as Primary Virtualist, Secondary Virtualist, or [facility] Telehealth provider: Secondary SIGNATURE: Sheila Frank MD PATIENT NAME: Kalina Mcgee Benchoff DATE: January 17, 2024 [facility]12-07-2024 History of Present illness Narrative* Sheila Frank MD - 01/17/2024 3:55 PM EST Virtualist Progress Note Triage Call I have communicated my name and active licensure. The patient's identity and physical location wereverified at the time of this visit. Either the patient or their legal claims customer service representative has been informed of the risks and benefits of -- and alternatives to -- treatment through a remote evaluation andconsents to proceed with the evaluation remotely. Triage source: Triage Call (Nurse Forest Supervisor, [facility] - [facility] Triage, [facility] Triage, [facility] Phone Triage) Was patient downgraded (i.e. disposition other than go to the ED was advised)? No Mode of contact: Audio Only Visit History/Physical Exam: SANTOS today with BP 204/66 Took amlodipine about one hour ago 3pm). P71, 194/62 now. running around since 8am today. Has a SANTOS now (right side of head and improving). Yesterday 179/76 then 152/67 after po amlodipine. Saw SAMMY in office on 12/31 with same SANTOS and reports of recent high BPs. Amoldipine 2.5 mg was ordered for her to take when her BP is >150 systolic. Nurse Triage Disposition (If call is from [facility], [facility] nurse triage, or an [facility], the disposition is Go to ED Now): See provider within 4 hours Virtualist Recommended Disposition: Go to ED if she still has a SANTOS in 30-60 minutes. She should call PCP with current BP readings Signed in as Primary Virtualist, Secondary Virtualist, or [facility] Telehealth provider: Secondary SIGNATURE: Sheila Frank MD PATIENT NAME: Kalina Mcgee Benchoff DATE: January 17, 2024 documented in this encounterGrand [facility] Telephone encounter Note * Telephone Encounter - Cristina Tellez RN - 01/17/2024 3:41 PM EST Reason for Call: Blood Pressure-High Outcome: See HCP Within [address] Frank was informed and advised ER if the headache does not resolve after 1 hour of taking thedose of Amlodipine. Patient agreed with the recommendation. Reason for Disposition [1] Systolic BP >= 200 OR Diastolic >= 120 AND [2] having NO cardiac or neurologic symptoms Answer Assessment - Initial Assessment Questions 1. BLOOD PRESSURE: 204/66, 190/58, 207/66; rechecked at 194/62 and HR 71; dose of amlodipine 2.5 mg was taken 30 minutes ago 2. ONSET: 20 minutes ago 3. HOW: home blood pressure monitor 4. HISTORY: yes; lots of years, per patient 5. MEDICINES: metoprolol and amlodipine 6. OTHER SYMPTOMS: a little bit of a headache 7. : na Protocols used: Blood Pressure - [id number]-IL [facility]12-07-2024 Miscellaneous Notes* Telephone Encounter - Cristina Tellez RN - 01/17/2024 3:41 PM EST Reason for Call: Blood Pressure-High Outcome: See HCP Within [address] Frank was informed and advised ER if the headache does not resolve after 1 hour of taking thedose of Amlodipine. Patient agreed with the recommendation. Reason for Disposition [1] Systolic BP >= 200 OR Diastolic >= 120 AND [2] having NO cardiac or neurologic symptoms Answer Assessment - Initial Assessment Questions 1. BLOOD PRESSURE: 204/66, 190/58, 207/66; rechecked at 194/62 and HR 71; dose of amlodipine 2.5 mg was taken 30 minutes ago 2. ONSET: 20 minutes ago 3. HOW: home blood pressure monitor 4. HISTORY: yes; lots of years, per patient 5. MEDICINES: metoprolol and amlodipine 6. OTHER SYMPTOMS: a little bit of a headache 7. : na Protocols used: Blood Pressure - [id number]-HC documented in this encounterGrand [facility]11[facility] Telephone encounter Note * Telephone Encounter - Jimena Pennington LPN - 01/02/2024 11:41 AM EST Per PA results not PA needed this is available to pt. [facility]11-22-2024 Miscellaneous Notes* Telephone Encounter - Jimena Pennington LPN - 01/02/2024 11:41 AM EST Per PA results not PA needed this is available to pt. * Telephone Encounter - Jimena Pennington LPN - 01/02/2024 8:17 AM EST Images from the original note were not included. Electronic PA completed ands response. Prior authorization approved Payer: [facility] [phone] Note from payer: MARCUS Case: [id number], Status: Approved, Coverage Starts on: 01/01/2024 8:02:06 PM, Coverage Ends on: 01/01/2024 8:02:06 PM. Questions? Contact . Approval Details Authorized from January 01, 2024 to January 01, 2024 Electronic appeal: Not supported View History Notes Time User Attachment Attachment received from payer. 01/01/2024 8:08 PM [facility], Rx Priorauth In Document Medication Being Authorized gabapentin (NEURONTIN) 300 mg capsule TAKE 2 CAPSULES THREE TIMES DAILY DIRECTED Dispense: 540 capsule Refills: 3 Start: 01/01/2024 End: 08/01/2024 Class: Normal Diagnoses: Fibromyalgia This order has been released to its destination. To be filled at: [facility] [place] [address] [address] [phone] documented in this encounterGrand Lake [facility] Telephone encounter Note * Telephone Encounter - Jimena Pennington LPN - 01/02/2024 8:17 AM EST Images from the original note were not included. Electronic PA completed ands response. Prior authorization approved Payer: Pedro [phone] Note from payer: MARCUS Case: [id number], Status: Approved, Coverage Starts on: 01/01/2024 8:02:06 PM, Coverage Ends on: 01/01/2024 8:02:06 PM. Questions? Contact . Approval Details Authorized from January 01, 2024 to January 01, 2024 Electronic appeal: Not supported View History Notes Time User Attachment Attachment received from payer. 01/01/2024 8:08 PM Cchs, Rx Priorauth In Document Medication Being Authorized gabapentin (NEURONTIN) 300 mg capsule TAKE 2 CAPSULES THREE TIMES DAILY DIRECTED Dispense: 540 capsule Refills: 3 Start: 01/01/2024 End: 08/01/2024 Class: Normal Diagnoses: Fibromyalgia This order has been released to its destination. To be filled at: [facility] [place] [address] [address] [facility] [place] -[phone] [facility]11-21-2024 Instructions* Patient Instructions* Maddie Sahu APRN.CNS - 01/01/2024 3:43 PM EST Take amlodipine 2.5 mg once daily for a blood pressure 150/80 or greater documented in this encounterGrand Lake [facility]11-21-2024 History of Present illness Narrative* Maddie Sahu APRN.CNS - 01/01/2024 3:00 PM EST SUBJECTIVE: DTaP,Tdap,Td Vaccine(1 - Tdap) Never done Shingrix Vaccine(1 of 2) Never done RSV Vaccine(1 - 1-dose 75+ series) Never done Influenza Vaccine(1) due on 10/12/2023 Covid-19 Vaccine( season) due on 10/12/2023 HPI Kalina Rudd is a 83 year old female. PMH significant for ACTIVE PROBLEM LIST Generalized Anxiety Disorder Essential Hypertension Osteopenia Generalized Osteoarthritis Fibromyalgia INSOMNIA, INTERMITTENT HYPERCHOLESTEROLEMIA Lichen Sclerosus Mixed Stress and Urge Urinary Incontinence Vitamin D Deficiency Recurrent Major Depressive Disorder, in Partial Remission (Hcc) Presents regarding blood pressure today. She reports that she has been checking blood pressures at home for the last 1-2 weeks and SBP have been 170-180s when checking She has noted a headache. Reports taking metoprolol succinate daily, had a back log at home of pills from her mail order. HTN: Without report chest pain, palpitations, dyspnea, peripheral edema, orthopnea, fatigue and PND. Last 14 Encounter BP Readings: Date: BP: 01/01/2024 157/59[bp average[ 11/07/2023 136/72 05/07/2023 138/58 11/02/2022 148/60 01/15/2022 142/80 04/11/2021 178/64 02/28/2021 160/60 02/12/2021 160/74[average[ 12/26/2020 160/70 10/21/2020 122/70 10/06/2020 136/62 06/05/2020 132/72 01/18/2020 138/76 01/07/2020 132/84 Her most recent lipid panels: Cholesterol, Total (mg/dL) Date Value 11/07/2023 242 11/04/2022 240 12/01/2020 198 09/30/2019 238 HDL Cholesterol (mg/dL) Date Value 11/07/2023 48 11/04/2022 57 12/01/2020 45 09/30/2019 48 LDL Cholesterol (mg/dL) Date Value 11/07/2023 159 11/04/2022 161 12/01/2020 124 09/30/2019 159 Triglyceride (mg/dL) Date Value 11/07/2023 174 11/04/2022 111 12/01/2020 145 09/30/2019 154 Review of Systems Constitutional: Negative. Respiratory: Negative. Cardiovascular: Negative. Neurological: Positive for headaches. Objective BP 157/59 Pulse 68 Resp 16 Wt 62.2 kg (137 lb 2 oz) BMI 25.49 kg/m Physical Exam Vitals and nursing note reviewed. Constitutional: Appearance: Normal appearance. HENT: Head: Normocephalic and atraumatic. Eyes: Conjunctiva/sclera: Conjunctivae normal. Neck: Thyroid: No thyromegaly. Vascular: Normal carotid pulses. No JVD. Cardiovascular: Rate and Rhythm: Normal rate and regular rhythm. Heart sounds: Normal heart sounds. Pulmonary: Effort: Pulmonary effort is normal. Breath sounds: Normal breath sounds. Abdominal: General: Abdomen is flat. Bowel sounds are normal. Palpations: Abdomen is soft. Musculoskeletal: Right lower leg: No edema. Left lower leg: No edema. Skin: General: Skin is warm and dry. Neurological: Mental Status: She is alert. ALLERGIES Allergen Reactions Amitriptyline Other: See Comments Could not urinate Codeine chest pain Sulfa (Sulfonamide * Hives, Swelling, Itching Trazodone vivid dreams Medications: metoprolol succinate ER (TOPROL XL) 50 mg 24 hr tablet Take 1 tablet by mouth once daily. gabapentin (NEURONTIN) 300 mg capsule TAKE 2 CAPSULES THREE TIMES DAILY DIRECTED crisaborole 2 % Apply to affected area two times a day. Apply a thin film to affected area(s) 2 times daily DULoxetine (CYMBALTA) 60 mg capsule Take 1 capsule by mouth once daily. omeprazole (PRILOSEC) 40 mg capsule Take 1 capsule by mouth once daily. estradiol (ESTRACE) 0.01 % (0.1 mg/gram) vaginal cream Apply to urethral opening for atrophic vaginitis. Two to three times a week. clobetasol (TEMOVATE) 0.05 % ointment Actually gets compounded RX 0.07% through [facility] from [employer] to use twice weekly [employer] [facility] probiotics--Yeast and Vaginal PH support probiotic. Probiotic blend. Takes 1 by mouth at bedtime dorzolamide HCl/PF (DORZOLAMIDE, PF,) 2 % drop Use 1 Drop in eyes three times daily. glycerin-min oil-polycarbophil (REPLENS) gel Uses Replens cream 3 times weekly COMPOUNDED PRESCRIPTION Massage therapy Dx: Fibromyalgia, Arthritis amLODIPine (NORVASC) 2.5 mg tablet Take 1 tablet by mouth once daily. as needed for a blood pressure 150/80 or greater. triamcinolone (KENALOG) 0.025 % ointment Apply 1 application to affected area twice daily as needed. uses near vaginal area (Patient not taking: Reported on 01/01/2024) PAST MEDICAL HISTORY Diagnosis Date Dysthymic disorder Depression (non-psychotic) Essential hypertension, benign Generalized anxiety disorder Anxiety, Generalized Generalized osteoarthrosis, unspecified site Lichen sclerosus Myalgia and myositis, unspecified OSTEOPOROSIS NOS Osteoporosis, unspecified Social History Tobacco Use Smoking status: Never Smokeless tobacco: Never Substance Use Topics Alcohol use: No Drug use: No ASSESSMENT/PLAN: 1. Essential hypertension - ICD9: 401.9, ICD10: I10 suboptimal control at home, interested in taking medication - Continue current medications - Start amlodipine 2.5 mg for BP 150/80 or greater - Recommend home blood pressure monitoring, to bring results to next visit - Encouraged sodium restriction, DASH or Mediterranean diet - Recommend regular aerobic exercise 1 mo recheck BP Maddie Sahu APRN.CNS Medical Decision Making: Problems: Moderate: 1+ chronic illnesses with change Risk: Moderate: Drug management Medical Decision Making Level: 4 - Moderate documented in this encounterGrand Lake [facility]11-21-2024 NoteHNO ID: [id number] Author: MADDIE SAHU APRN.CNS Service: ? Author Type: Nurse Specialist Type: Progress Notes Filed: 01/01/2024 16:01 Note Text: SUBJECTIVE: DTaP,Tdap,Td Vaccine(1 - Tdap) Never done Shingrix Vaccine(1 of 2) Never done RSV Vaccine(1 - 1-dose 75+ series) Never done Influenza Vaccine(1) due on 10/12/2023 Covid-19 Vaccine(2023- season) due on 10/12/2023 HPI Kalina Rudd is a 83 year old female. PMH significant for ACTIVE PROBLEM LIST Generalized Anxiety Disorder Essential Hypertension Osteopenia Generalized Osteoarthritis Fibromyalgia INSOMNIA, INTERMITTENT HYPERCHOLESTEROLEMIA Lichen Sclerosus Mixed Stress and Urge Urinary Incontinence Vitamin D Deficiency Recurrent Major Depressive Disorder, in Partial Remission (Hcc) Presents regarding blood pressure today. She reports that she has been checking blood pressures at home for the last 1-2 weeks and SBP have been 170-180s when checking She has noted a headache. Reports taking metoprolol succinate daily, had a back log at home of pills from her mail order. HTN: Without report chest pain, palpitations, dyspnea, peripheral edema, orthopnea, fatigue and PND. Last 14 Encounter BP Readings: Date: BP: 01/01/2024 157/59[bp average[ 11/07/2023 136/72 05/07/2023 138/58 11/02/2022 148/60 01/15/2022 142/80 04/11/2021 178/64 02/28/2021 160/60 02/12/2021 160/74[average[ 12/26/2020 160/70 10/21/2020 122/70 10/06/2020 136/62 06/05/2020 132/72 01/18/2020 138/76 01/07/2020 132/84 Her most recent lipid panels: Cholesterol, Total (mg/dL) Date Value 11/07/2023 242 11/04/2022 240 12/01/2020 198 09/30/2019 238 HDL Cholesterol (mg/dL) Date Value 11/07/2023 48 11/04/2022 57 12/01/2020 45 09/30/2019 48 LDL Cholesterol (mg/dL) Date Value 11/07/2023 159 11/04/2022 161 12/01/2020 124 09/30/2019 159 Triglyceride (mg/dL) Date Value 11/07/2023 174 11/04/2022 111 12/01/2020 145 09/30/2019 154 Review of Systems Constitutional: Negative. Respiratory: Negative. Cardiovascular: Negative. Neurological: Positive for headaches. Objective BP 157/59 Pulse 68 Resp 16 Wt 62.2 kg (137 lb 2 oz) BMI 25.49 kg/m? Physical Exam Vitals and nursing note reviewed. Constitutional: Appearance: Normal appearance. HENT: Head: Normocephalic and atraumatic. Eyes: Conjunctiva/sclera: Conjunctivae normal. Neck: Thyroid: No thyromegaly. Vascular: Normal carotid pulses. No JVD. Cardiovascular: Rate and Rhythm: Normal rate and regular rhythm. Heart sounds: Normal heart sounds. Pulmonary: Effort: Pulmonary effort is normal. Breath sounds: Normal breath sounds. Abdominal: General: Abdomen is flat. Bowel sounds are normal. Palpations: Abdomen is soft. Musculoskeletal: Right lower leg: No edema. Left lower leg: No edema. Skin: General: Skin is warm and dry. Neurological: Mental Status: She is alert. ALLERGIES Allergen Reactions Amitriptyline Other: See Comments Could not urinate Codeine chest pain Sulfa (Sulfonamide * Hives, Swelling, Itching Trazodone vivid dreams Medications: metoprolol succinate ER (TOPROL XL) 50 mg 24 hr tablet Take 1 tablet by mouth once daily. gabapentin (NEURONTIN) 300 mg capsule TAKE 2 CAPSULES THREE TIMES DAILY DIRECTED crisaborole 2 % Apply to affected area two times a day. Apply a thin film to affected area(s) 2 times daily DULoxetine (CYMBALTA) 60 mg capsule Take 1 capsule by mouth once daily. omeprazole (PRILOSEC) 40 mg capsule Take 1 capsule by mouth once daily. estradiol (ESTRACE) 0.01 % (0.1 mg/gram) vaginal cream Apply to urethral opening for atrophic vaginitis. Two to three times a week. clobetasol (TEMOVATE) 0.05 % ointment Actually gets compounded RX 0.07% through [facility] from [employer] to use twice weekly [employer] [facility] probiotics--Yeast and Vaginal PH support probiotic. Probiotic blend. Takes 1 by mouth at bedtime dorzolamide HCl/PF (DORZOLAMIDE, PF,) 2 % drop Use 1 Drop in eyes three times daily. glycerin-min oil-polycarbophil (REPLENS) gel Uses Replens cream 3 times weekly COMPOUNDED PRESCRIPTION Massage therapy Dx: Fibromyalgia, Arthritis amLODIPine (NORVASC) 2.5 mg tablet Take 1 tablet by mouth once daily. as needed for a blood pressure 150/80 or greater. triamcinolone (KENALOG) 0.025 % ointment Apply 1 application to affected area twice daily as needed. uses near vaginal area (Patient not taking: Reported on 01/01/2024) PAST MEDICAL HISTORY Diagnosis Date Dysthymic disorder Depression (non-psychotic) Essential hypertension, benign Generalized anxiety disorder Anxiety, Generalized Generalized osteoarthrosis, unspecified site Lichen sclerosus Myalgia and myositis, unspecified OSTEOPOROSIS NOS Osteoporosis, unspecified Social History Tobacco Use Smoking status: Never Smokeless tobacco: Never Substance (more content not included)...[facility]11-21-[facility]24 Telephone encounter Note* Telephone Encounter - Karen Resendiz MD - 01/01/2024 10:08 AM EST The following approved medication requests have been transmitted electronically. Requested Prescriptions Signed Prescriptions Disp Refills metoprolol succinate ER (TOPROL XL) 50 mg 24 hr tablet 90 tablet 3 Sig: Take 1 tablet by mouth once daily. Authorizing Provider: KAREN RESENDIZ gabapentin (NEURONTIN) 300 mg capsule 540 capsule 3 Sig: TAKE 2 CAPSULES THREE TIMES DAILY DIRECTED Authorizing Provider: KAREN RESENDIZ MD [facility]11-21-2024 Miscellaneous Notes* Telephone Encounter - Karen Resendiz MD - 01/01/2024 10:08 AM EST The following approved medication requests have been transmitted electronically. Requested Prescriptions Signed Prescriptions Disp Refills metoprolol succinate ER (TOPROL XL) 50 mg 24 hr tablet 90 tablet 3 Sig: Take 1 tablet by mouth once daily. Authorizing Provider: KAREN RESENDIZ gabapentin (NEURONTIN) 300 mg capsule 540 capsule 3 Sig: TAKE 2 CAPSULES THREE TIMES DAILY DIRECTED Authorizing Provider: KAREN RESENDIZ MD * Telephone Encounter - Mel Riggs RN - 12/31/2023 5:12 PM EST The patient has been identified by name and date of : Yes Caregiver verified no other encounters exist for this prescription request: Yes Caregiver confirmed with patient/requestor that no other refills are due, in the near future, with this provider at this time: Yes The last office visit in the department: 11/07/2023 Does the patient have a future office visit with this provider/department: Yes 05/11/2024 Requested Prescriptions Pending Prescriptions Disp Refills gabapentin (NEURONTIN) 300 mg capsule 540 capsule 3 Sig: TAKE 2 CAPSULES THREE TIMES DAILY DIRECTED metoprolol succinate ER (TOPROL XL) 50 mg 24 hr tablet 90 tablet 3 Sig: Take 1 tablet by mouth once daily. Mel Riggs RN December 31, 2023 5:13 PM documented in this encounterGrand Lake [facility]11-20-2024 Telephone encounter Note * Telephone Encounter - Mel Riggs RN - 12/31/2023 5:20 PM EST Reviewed triage protocol guidelines with patient. Disposition: See PCP within 3 days. Appointment scheduled. Advised patient to bring home BP monitor to appointment to compare. Mel Riggs RN Reason for Disposition Systolic BP >= 160 OR Diastolic >= 100 Answer Assessment - Initial Assessment Questions 1. BLOOD PRESSURE: 165/71 HR-64 while nurse on phone 2. ONSET: She says BP has been elevated for several days 3. HOW: Automatic home BP monitor 4. HISTORY: History of hypertension on medication 5. MEDICINES: Taking Metoprolol as prescribed 6. OTHER SYMPTOMS: Denies dizziness, headache, blurred vision, chest pain, SOB at this time 7. : NO Protocols used: Blood Pressure - [id number] [facility]11-20-2024 Miscellaneous Notes* Telephone Encounter - Mel Riggs RN - 12/31/2023 5:20 PM EST Reviewed triage protocol guidelines with patient. Disposition: See PCP within 3 days. Appointment scheduled. Advised patient to bring home BP monitor to appointment to compare. Mel Riggs RN Reason for Disposition Systolic BP >= 160 OR Diastolic >= 100 Answer Assessment - Initial Assessment Questions 1. BLOOD PRESSURE: 165/71 HR-64 while nurse on phone 2. ONSET: She says BP has been elevated for several days 3. HOW: Automatic home BP monitor 4. HISTORY: History of hypertension on medication 5. MEDICINES: Taking Metoprolol as prescribed 6. OTHER SYMPTOMS: Denies dizziness, headache, blurred vision, chest pain, SOB at this time 7. : NO Protocols used: Blood Pressure - [id number] documented in this encounterGrand Lake [facility]11-20-2024 Telephone encounter Note * Telephone Encounter - Mel Riggs RN - 12/31/2023 5:12 PM EST The patient has been identified by name and date of : Yes Caregiver verified no other encounters exist for this prescription request: Yes Caregiver confirmed with patient/requestor that no other refills are due, in the near future, with this provider at this time: Yes The last office visit in the department: 11/07/2023 Does the patient have a future office visit with this provider/department: Yes 05/11/2024 Requested Prescriptions Pending Prescriptions Disp Refills gabapentin (NEURONTIN) 300 mg capsule 540 capsule 3 Sig: TAKE 2 CAPSULES THREE TIMES DAILY DIRECTED metoprolol succinate ER (TOPROL XL) 50 mg 24 hr tablet 90 tablet 3 Sig: Take 1 tablet by mouth once daily. Mel Riggs RN December 31, 2023 5:13 PM [facility]09-30-2024 Telephone encounter Note* Telephone Encounter - Maryjane Flores LPN - 11/10/2023 4:29 PM EDT PATIENT NOTIFIED OF SAME. [facility]09-30-2024 Miscellaneous Notes* Telephone Encounter - Maryjane Flores LPN - 11/10/2023 4:29 PM EDT PATIENT NOTIFIED OF SAME. * Telephone Encounter - Nelli Reyes APRN.CNP - 11/10/2023 4:10 PM EDT Rula. Please call patient and let them know recent labs looked stable, vitamin d is with in normallimits so she does not need to restart a supplement. No changes needed at this time and to keep next scheduled appointment. Thanks. documented in this encounterGrand Lake Joint [facility]09-30-2024 Telephone encounter Note * Telephone Encounter - Nelli Reyes APRN.CNP - 11/10/2023 4:10 PM EDT Rula. Please call patient and let them know recent labs looked stable, vitamin d is with in normallimits so she does not need to restart a supplement. No changes needed at this time and to keep next scheduled appointment. Thanks. [facility]09-27-2024 NoteHNO ID: [id number] Author: NELLI REYES APRN.CNP Service: ? Author Type: Nurse Practitioner Type: Progress Notes Filed: 11/07/2023 15:27 Note Text: SUBJECTIVE Kalina Rudd is a 83 year old female here today for a check up on her medical problems. Chief Complaint Patient presents with: F/U 6 months Derm Problem: itchy areas on chest, neck and upper back HPI Kalina Rudd is a 83 year old female. She is an established patient of Karen Resendiz MD. Here today for a 6 month follow up. Concerns of a rash that has itchy patches on the chest, neck and upper back. Prior diagnosis of Eczema. Has tried OTCs and topical steroid ointments. These have not been helpful. Also notes not sleeping great. Prior side effects with amitriptyline and trazodone. Hard time falling asleep and staying asleep. Mood is doing okay. Otherwise doing okay. Taking her medicines. Has not done her blood work yet. Mood stable. Her medications were reviewed today and her list is now up to date. Medications Current Outpatient Medications Medication Sig DULoxetine (CYMBALTA) 60 mg capsule Take 1 capsule by mouth once daily. gabapentin (NEURONTIN) 300 mg capsule TAKE 2 CAPSULES THREE TIMES DAILY DIRECTED metoprolol succinate ER (TOPROL XL) 50 mg 24 hr tablet Take 1 tablet by mouth once daily. omeprazole (PRILOSEC) 40 mg capsule Take 1 capsule by mouth once daily. estradiol (ESTRACE) 0.01 % (0.1 mg/gram) vaginal cream Apply to urethral opening for atrophic vaginitis. Two to three times a week. clobetasol (TEMOVATE) 0.05 % ointment Actually gets compounded RX 0.07% through [facility] from [employer] to use twice weekly dorzolamide HCl/PF (DORZOLAMIDE, PF,) 2 % drop Use 1 Drop in eyes three times daily. glycerin-min oil-polycarbophil (REPLENS) gel Uses Replens cream 3 times weekly zaleplon (SONATA) 5 mg capsule Take 1 capsule by mouth daily at bedtime for 30 days. crisaborole 2 % Apply to affected area two times a day. Apply a thin film to affected area(s) 2 times daily [employer] [facility] probiotics--Yeast and Vaginal PH support probiotic. Probiotic blend. Takes 1 by mouth at bedtime triamcinolone (KENALOG) 0.025 % ointment Apply 1 application to affected area twice daily as needed. uses near vaginal area (Patient not taking: Reported on 11/07/2023) COMPOUNDED PRESCRIPTION Massage therapy Dx: Fibromyalgia, Arthritis No current facility-administered medications for this visit. ALLERGIES Allergen Reactions Amitriptyline Other: See Comments Could not urinate Codeine chest pain Sulfa (Sulfonamide * Hives, Swelling, Itching Trazodone vivid dreams ACTIVE PROBLEM LIST Recurrent Major Depressive Disorder, in Partial Remission ([facility]) - 09/08/2017 Vitamin D Deficiency - 07/16/2016 Mixed Stress and Urge Urinary Incontinence - 07/13/2015 Lichen Sclerosus INSOMNIA, INTERMITTENT - 10/16/2004 HYPERCHOLESTEROLEMIA - 10/16/2004 Generalized Anxiety Disorder Comment: Anxiety, Generalized Essential Hypertension Osteopenia Generalized Osteoarthritis Fibromyalgia Social History Tobacco Use Smoking status: Never Smokeless tobacco: Never Substance Use Topics Alcohol use: No Drug use: No Review of Systems Respiratory: Negative. Cardiovascular: Negative. Musculoskeletal: Negative. Skin: Positive for rash. Psychiatric/Behavioral: Positive for sleep disturbance. OBJECTIVE BP 136/72 Pulse 60 Wt 139 lb 1.8 oz (63.1kg) SpO2 99% Physical Exam Vitals and nursing note reviewed. Constitutional: General: She is awake. She is not in acute distress. Appearance: Normal appearance. She is well-developed and well-groomed. She is not ill-appearing, toxic-appearing or diaphoretic. HENT: Head: Normocephalic. Right Ear: External ear normal. Left Ear: External ear normal. Nose: Nose normal. Eyes: General: Vision grossly intact. Conjunctiva/sclera: Conjunctivae normal. Pupils: Pupils are equal, round, and reactive to light. Neck: Vascular: No JVD. Trachea: Trachea normal. Cardiovascular: Rate and Rhythm: Normal rate and regular rhythm. Pulses: Normal pulses. Heart sounds: Normal heart sounds. No murmur heard. Pulmonary: Effort: Pulmonary effort is normal. No accessory muscle usage, prolonged expiration or respiratory distress. Breath sounds: Normal breath sounds. Musculoskeletal: Cervical back: Neck supple. Skin: General: Skin is warm and dry. Capillary Refill: Capillary refill takes less than 2 seconds. Neurological: General: No focal deficit present. Mental Status: She is alert and oriented to person, place, and time. Mental status is at baseline. Psychiatric: Attention and Perception: Attention and perception normal. Mood and Affect: Mood and affect normal. Speech: Speech normal. Behavior: Behavior normal. Behavior is cooperative. Thought Content: Thought content normal. Cognition and Memory (more content not included)...[facility] 11-07-2023 History of Present illness Narrative* Nelli Reyes APRN.[facility] - 11/07/2023 3:01 PM EDT SUBJECTIVE Kalina Rudd is a 83 year old female here today for a check up on her medical problems. Chief Complaint Patient presents with: F/U 6 months Derm Problem: itchy areas on chest, neck and upper back HPI Kalina Rudd is a 83 year old female. She is an established patient of Karen Resendiz MD. Here today for a 6 month follow up. Concerns of a rash that has itchy patches on the chest, neck and upper back. Prior diagnosis of Eczema. Has tried OTCs and topical steroid ointments. These have not been helpful. Also notes not sleeping great. Prior side effects with amitriptyline and trazodone. Hard time falling asleep and staying asleep. Mood is doing okay. Otherwise doing okay. Taking her medicines. Has not done her blood work yet. Mood stable. Her medications were reviewed today and her list is now up to date. Medications Current Outpatient Medications Medication Sig DULoxetine (CYMBALTA) 60 mg capsule Take 1 capsule by mouth once daily. gabapentin (NEURONTIN) 300 mg capsule TAKE 2 CAPSULES THREE TIMES DAILY DIRECTED metoprolol succinate ER (TOPROL XL) 50 mg 24 hr tablet Take 1 tablet by mouth once daily. omeprazole (PRILOSEC) 40 mg capsule Take 1 capsule by mouth once daily. estradiol (ESTRACE) 0.01 % (0.1 mg/gram) vaginal cream Apply to urethral opening for atrophic vaginitis. Two to three times a week. clobetasol (TEMOVATE) 0.05 % ointment Actually gets compounded RX 0.07% through [facility] from [employer] to use twice weekly dorzolamide HCl/PF (DORZOLAMIDE, PF,) 2 % drop Use 1 Drop in eyes three times daily. glycerin-min oil-polycarbophil (REPLENS) gel Uses Replens cream 3 times weekly zaleplon (SONATA) 5 mg capsule Take 1 capsule by mouth daily at bedtime for 30 days. crisaborole 2 % Apply to affected area two times a day. Apply a thin film to affected area(s) 2 times daily [employer] [facility] probiotics--Yeast and Vaginal PH support probiotic. Probiotic blend. Takes 1 by mouth at bedtime triamcinolone (KENALOG) 0.025 % ointment Apply 1 application to affected area twice daily as needed. uses near vaginal area (Patient not taking: Reported on 11/07/2023) COMPOUNDED PRESCRIPTION Massage therapy Dx: Fibromyalgia, Arthritis No current facility-administered medications for this visit. ALLERGIES Allergen Reactions Amitriptyline Other: See Comments Could not urinate Codeine chest pain Sulfa (Sulfonamide * Hives, Swelling, Itching Trazodone vivid dreams ACTIVE PROBLEM LIST Recurrent Major Depressive Disorder, in Partial Remission ([facility]) - 09/08/2017 Vitamin D Deficiency - 07/16/2016 Mixed Stress and Urge Urinary Incontinence - 07/13/2015 Lichen Sclerosus INSOMNIA, INTERMITTENT - 10/16/2004 HYPERCHOLESTEROLEMIA - 10/16/2004 Generalized Anxiety Disorder Comment: Anxiety, Generalized Essential Hypertension Osteopenia Generalized Osteoarthritis Fibromyalgia Social History Tobacco Use Smoking status: Never Smokeless tobacco: Never Substance Use Topics Alcohol use: No Drug use: No Review of Systems Respiratory: Negative. Cardiovascular: Negative. Musculoskeletal: Negative. Skin: Positive for rash. Psychiatric/Behavioral: Positive for sleep disturbance. OBJECTIVE BP 136/72 Pulse 60 Wt 139 lb 1.8 oz (63.1kg) SpO2 99% Physical Exam Vitals and nursing note reviewed. Constitutional: General: She is awake. She is not in acute distress. Appearance: Normal appearance. She is well-developed and well-groomed. She is not ill-appearing, toxic-appearing or diaphoretic. HENT: Head: Normocephalic. Right Ear: External ear normal. Left Ear: External ear normal. Nose: Nose normal. Eyes: General: Vision grossly intact. Conjunctiva/sclera: Conjunctivae normal. Pupils: Pupils are equal, round, and reactive to light. Neck: Vascular: No JVD. Trachea: Trachea normal. Cardiovascular: Rate and Rhythm: Normal rate and regular rhythm. Pulses: Normal pulses. Heart sounds: Normal heart sounds. No murmur heard. Pulmonary: Effort: Pulmonary effort is normal. No accessory muscle usage, prolonged expiration or respiratory distress. Breath sounds: Normal breath sounds. Musculoskeletal: Cervical back: Neck supple. Skin: General: Skin is warm and dry. Capillary Refill: Capillary refill takes less than 2 seconds. Neurological: General: No focal deficit present. Mental Status: She is alert and oriented to person, place, and time. Mental status is at baseline. Psychiatric: Attention and Perception: Attention and perception normal. Mood and Affect: Mood and affect normal. Speech: Speech normal. Behavior: Behavior normal. Behavior is cooperative. Thought Content: Thought content normal. Cognition and Memory: Cognition and memory normal. Judgment: Judgment normal. ASSESSMENT/PLAN: 1. Vitamin D deficiency - ICD9: 268.9, ICD10: E55.9 (primary diagnosis) She has not been taking her vitamin d, repeat levels with other labs today. - VITAMIN D 25 HYDROXY 2. Other insomnia - ICD9: 780.52, ICD10: G47.09 Trial Sonata at a low dose. Discussed new medication including but not limited to reason for use, possible side effects, administration, signs and symptoms to monitor for and when to seek medical attention. - ZALEPLON 5 MG CAPSULE 3. Eczema, unspecified type - ICD9: 692.9, ICD10: L30.9 - discussed skin care of rash - follow up if symptoms persist or worsen. - Has tried several topical steroids and OTC emollient ointments. - CRISABOROLE 2 % TOPICAL OINTMENT 4. Essential hypertension - ICD9: 401.9, ICD10: I10 - Controlled - Continue current medications - Recommend home blood pressure monitoring, to bring results to next visit - Encouraged sodium restriction, DASH or Mediterranean diet - Recommend regular aerobic exercise 5. Recurrent major depressive disorder, in partial remission (HCC) - ICD9: 296.35, ICD10: F33.41 Stable. Portions of this note have been entered by ancillary staff. I have reviewed and when necessary edited, so that they are an adequate record of my encounter with this patient Please note that parts of this document were created using voice recognition software and therefore may contain grammatical errors. Patient verbalizes understanding of instructions from today's visit and in agreement with treatmentplan. Questions answered. Agrees to call the office if questions, concerns of issues with acute symptoms not improving or if they worsen. See diagnoses and orders for additional plan(s). Allergies and medications were reviewed, list was updated, and refills given if needed. Past medical, surgical, social, and family history reviewed and updated as appropriate. Encouraged proper diet & exercise as well as compliance with taking medications. Age- appropriate health preventative measures were discussed. Return if symptoms worsen or fail to improve, for Keep next scheduled appointment.. Nelli Reyes APRN-DARREN documented in this encounterGrand [facility] Telephone encounter Note * Telephone Encounter - Antonette Pink - 08/15/2023 3:56 PM EDT Patient said she got a letter from [facility] stating she doesn't have anymore refills on this medication and to request it from her pcp. [facility] Miscellaneous Notes* Telephone Encounter - Antonette Pink - 08/15/2023 3:56 PM EDT Patient said she got a letter from [facility] stating she doesn't have anymore refills on this medication and to request it from her pcp. * Telephone Encounter - Antonette Pink - 08/15/2023 3:55 PM EDT Prescription Refill Information The patient has been identified by name and date of : Yes Caregiver verified no other encounters exist for this prescription request: Yes Caregiver confirmed with patient/requestor that no other refills are due, in the near future, with this provider at this time: Yes The last office visit in the department: 05/07/23 Does the patient have a future office visit with this provider/department: Yes Requested Prescriptions Pending Prescriptions Disp Refills DULoxetine (CYMBALTA) 60 mg capsule 90 capsule 3 Sig: Take 1 capsule by mouth once daily. Antonette Cuellar August 15, 2023 3:56 PM documented in this encounterGrand Lake [facility]07-[facility]24 Telephone encounter Note * Telephone Encounter - Antonette Pink - 08/15/2023 3:55 PM EDT Prescription Refill Information The patient has been identified by name and date of : Yes Caregiver verified no other encounters exist for this prescription request: Yes Caregiver confirmed with patient/requestor that no other refills are due, in the near future, with this provider at this time: Yes The last office visit in the department: 05/07/23 Does the patient have a future office visit with this provider/department: Yes Requested Prescriptions Pending Prescriptions Disp Refills DULoxetine (CYMBALTA) 60 mg capsule 90 capsule 3 Sig: Take 1 capsule by mouth once daily. Antonette Cuellar August 15, 2023 3:56 PM [facility]03-27-[facility] Instructions* Patient Instructions* Karen Resendiz MD - 05/07/2023 11:09 AM EDT Consider Claritin (loratadine) in AM and Zyrtec (cetirizine) or Benadryl (diphenhydramine) at bedtime. Try to get sleep time moved to bedtime instead of 9AM to 2PM. Consider Metamucil nightly to see if helps bulk up stool so not so watery. documented in this encounterGrand Lake [facility]03-27-[facility] History of Present illness Narrative* Karen Resendiz MD - 05/07/2023 11:07 AM EDT This note was created using [employer]. Subjective Kalina Rudd is a 82 year old female. Patient presents with: F/U 6 months SUBJECTIVE: Kalina Rudd is a 82 year old year old lady here today for 6 month follow up appointment for review of medical conditions. Eczema--chest and back of neck. Worse back of neck. Was really red for a while. Not applying anything yet. Also taking loratadine--seems to be helping. Not sleeping til 9AM and wakes up 2PM (eye drops 9am,2pm,7pm). Not able to fall asleep at night. Never got the TAC 0.1% because pharmacy would not give it to her. [facility] out [facility] but RX went to [facility]. Noted never tried the Colestipol--pill too large. PAST MEDICAL HISTORY Diagnosis Date Dysthymic disorder Depression (non-psychotic) Essential hypertension, benign Generalized anxiety disorder Anxiety, Generalized Generalized osteoarthrosis, unspecified site Lichen sclerosus Myalgia and myositis, unspecified OSTEOPOROSIS NOS Osteoporosis, unspecified PAST SURGICAL HISTORY Procedure Laterality Date CHOLECYSTECTOMY Cholecystectomy COLONOSCOPY FLX DX W/COLLJ SPEC WHEN PFRMD Colonoscopy D&C DIAG &/OR THERAP, NOT OB LIG/TRNSXJ FLP TUBE ABDL/VAG APPR UNI/BI Tubal ligation Current Outpatient Medications Medication Sig triamcinolone acetonide (KENALOG) 0.1 % cream Apply 1 application to affected area two times a day as needed (rash on chest and neck). Apply sparingly to area for rash/itching. Up to 2 weeks per rashflare up. gabapentin (NEURONTIN) 300 mg capsule TAKE 2 CAPSULES THREE TIMES DAILY DIRECTED DULoxetine (CYMBALTA) 60 mg capsule Take 1 capsule by mouth once daily. metoprolol succinate ER (TOPROL XL) 50 mg 24 hr tablet Take 1 tablet by mouth once daily. omeprazole (PRILOSEC) 40 mg capsule Take 1 capsule by mouth once daily. estradiol (ESTRACE) 0.01 % (0.1 mg/gram) vaginal cream Apply to urethral opening for atrophic vaginitis. Two to three times a week. clobetasol (TEMOVATE) 0.05 % ointment Actually gets compounded RX 0.07% through [facility] from [facility] to use twice weekly [employer] [facility] probiotics--Yeast and Vaginal PH support probiotic. Probiotic blend. Takes 1 by mouth at bedtime triamcinolone (KENALOG) 0.025 % ointment Apply 1 application to affected area twice daily as needed. uses near vaginal area nystatin (MYCOSTATIN) cream Apply to affected area twice daily. until rash clears then one more week then discontinue Cholecalciferol, Vitamin D3, 50 mcg (2,000 unit) cap Take 1 capsule by mouth once daily. dorzolamide HCl/PF (DORZOLAMIDE, PF,) 2 % drop Use 1 Drop in eyes three times daily. glycerin-min oil-polycarbophil (REPLENS) gel Uses Replens cream 3 times weekly loperamide HCl (IMODIUM A-D ORAL) Take by mouth. (Patient not taking: No sig reported) LACTOBACILLUS ACIDOPHILUS (PROBIOTIC ORAL) Take by mouth. COMPOUNDED PRESCRIPTION Massage therapy Dx: Fibromyalgia, Arthritis CALCIUM 600 + D(3) 600 MG-200 UNIT ORAL TAB one tab daily (Patient not taking: No sig reported) No current facility-administered medications for this visit. Review of Systems Objective BP (P) 136/84 (BP Site: Left Arm, BP Position: Sitting, BP Cuff Size: Regular Adult) Pulse (P) 78 Wt (P) 63 kg (139 lb) BMI (P) 25.84 kg/m Last 5 Encounter Wt Readings: Date: Wt: 11/02/2022 62.6 kg (138 lb) 01/15/2022 59.4 kg (131 lb) 04/11/2021 59.9 kg (132 lb) 02/28/2021 61.9 kg (136 lb 6.4 oz) 02/12/2021 60.8 kg (134 lb) No waist measurement recorded Estimated body mass index is 25.84 kg/m (pended) as calculated from the following: Height as of 11/02/22: 156.2 cm (5' 1.5). Weight as of this encounter: (P) 63 kg (139 lb). Last 5 Encounter BP Readings: Date: BP: 11/02/2022 148/60 01/15/2022 142/80 04/11/2021 178/64 02/28/2021 160/60 02/12/2021 160/74[average[ 05/07/23 1050 05/07/23 1127 BP: (P) 136/84 138/58 BP Site: (P) Left Arm BP Position: (P) Sitting BP Cuff Size: (P) Regular Adult Pulse: (P) 78 Weight: (P) 63 kg (139 lb) Physical Exam Constitutional: Appearance: Normal appearance. HENT: Head: Normocephalic. Eyes: Conjunctiva/sclera: Conjunctivae normal. Cardiovascular: Rate and Rhythm: Normal rate and regular rhythm. Heart sounds: Normal heart sounds. Pulmonary: Effort: Pulmonary effort is normal. Breath sounds: Normal breath sounds. Musculoskeletal: Right lower leg: No edema. Left lower leg: No edema (noted left leg with some fullness noted but no pitting edema). Skin: General: Skin is warm and dry. Neurological: General: No focal deficit present. Mental Status: She is alert and oriented to person, place, and time. Psychiatric: Mood and Affect: Mood normal. Behavior: Behavior normal. Thought Content: Thought content normal. Judgment: Judgment normal. Assessment and Plan Encounter Diagnosis ICD-10-CM 1. Essential hypertension I10 COMP METABOLIC PANEL CBC LIPID PANEL BASIC 2. Dermatitis L30.9 triamcinolone acetonide (KENALOG) 0.1 % cream Under breasts--candidal dermatitis; back of neck and under hairline in occipital area--?psoriasis.Needs to put lotion on after bath routinely 3. Recurrent major depressive disorder, in partial remission (HCC) F33.41 4. Encounter for immunization Z23 TDAP PRINTED PHARMACY INSTRUCTIONS SHINGRIX PRINTED PHARMACY INSTRUCTIONS RSV PRINTED PHARMACY INSTRUCTIONS 5. Encounter for long-term current use of medication Z79.899 COMP METABOLIC PANEL CBC LIPID PANEL BASIC MAGNESIUM BLD Above issues addressed with patient. Patient involved in shared decision making for management of medical issues. History and medications reviewed. Epic updated as needed Refills and/or prescriptions taken care of and meds adjusted as indicated after reviewed history, exam and labs. Health Maintenance reviewed. Updated record and/or ordered tests as recorded. Encouraged on efforts at healthy diet and regular exercise and adequate sleep. Karen Resendiz MD documented in this encounterGrand [facility]10-26-2023 Miscellaneous Notes* Telephone Encounter - Maddie Sahu APRN.LAWN CARE SPECIALIST - 12/05/2022 3:27 PM EDT Which one is she doing? Refilled as previously ordered. It is the same quantity of pills per day. * Telephone Encounter - Irma Crews LPN - 12/05/2022 3:00 PM EDT Contacted pharmacy since a refill was sent in on 11/02/2022. The deliverer pharmacy states there was a clarification needed on the medication script it was never addressed so the Rx was cancelled. There are 2 different directions given. Please review and advise. * Telephone Encounter - Shagufta Lazo - 12/05/2022 2:27 PM EDT Patient has been identified by name and date of : Yes Last office visit in this department: Visit date not found RX INSTRUCTIONS: Patient aware RX will be sent to pharmacy. No need to notify patient. Patient phones requesting refills as follows: Please advise patient as pharmacy states needs new script Requested Prescriptions Pending Prescriptions Disp Refills gabapentin (NEURONTIN) 300 mg capsule 540 capsule 1 Sig: Take 3 capsules by mouth two times a day for 180 days. TAKE 2 CAPSULES THREE TIMES DAILY DIRECTED Please review and advise. Shagufta Cuellar documented in this encounterGrand Lake [facility]09-23-2023 Instructions* Patient Instructions* Karen Resendiz MD - 11/02/2022 11:17 AM EDT Cerave itch relief lotion (has pramoxine) Zyrtec (cetirizine) 10 mg at bedtime to help with the itching. Taking nightly to get itching under control. May take Claritin (loratadine) in the day as well to help with itching. Cold compresses can help with the itching sensation. Once itching resolves, can see if able to stop the Zyrtec and Claritin. Check BP once or twice a week at least to see if BP staying better at home. documented in this encounterGrand Lake [facility]09-23-2023 History of Present illness Narrative* Karen Resendiz MD - 11/02/2022 11:13 AM EDT This note was created using [employer]. Subjective Kalina Rudd is a 82 year old female. Patient presents with: Follow Up: rash on neck and chest, itchy x 9 months Immunizations: Flu vaccination SUBJECTIVE: Kalina Rudd is a 82 year old year old lady here today for follow up appointment for review of medical conditions. Still rash since January. Did not respond to any treatment tried. OTC meds tried. Really itching on back of neck. Tried spray for eczema--helps a little for itching. Tried Gold sanon cream or lotion and other lotions that had oatmeal. Back of neck is the itchiest. No papules or blisters; no crusting or flaking. Not scratching upper chest. Scratches on back of neck. Sleeps during the day; even before 3, then still cannot sleep at night. Falls asleep around 6AM; up around 2PM. also with similar schedule. PAST MEDICAL HISTORY Diagnosis Date Dysthymic disorder Depression (non-psychotic) Essential hypertension, benign Generalized anxiety disorder Anxiety, Generalized Generalized osteoarthrosis, unspecified site Lichen sclerosus Myalgia and myositis, unspecified OSTEOPOROSIS NOS Osteoporosis, unspecified Current Outpatient Medications Medication Sig gabapentin (NEURONTIN) 300 mg capsule Take 3 capsules by mouth twice daily for 180 days. TAKE 2 CAPSULES THREE TIMES DAILY DIRECTED DULoxetine (CYMBALTA) 60 mg capsule Take 1 capsule by mouth once daily. metoprolol succinate ER (TOPROL XL) 50 mg 24 hr tablet Take 1 tablet by mouth once daily. omeprazole (PRILOSEC) 40 mg capsule Take 1 capsule by mouth once daily. estradiol (ESTRACE) 0.01 % (0.1 mg/gram) vaginal cream Apply to urethral opening for atrophic vaginitis. Two to three times a week. clobetasol (TEMOVATE) 0.05 % ointment Actually gets compounded RX 0.07% through [facility] from [facility] [facility] to use twice weekly triamcinolone acetonide (KENALOG) 0.1 % cream Apply 1 application to affected area twice daily as needed (back of neck and chest rash and under breast but avoid skin crease). Apply sparingly to area for rash/itching. Up to 2 weeks per rash flare up. colestipol (COLESTID) 1 gram tablet Take 1 tablet by mouth once daily. triamcinolone (KENALOG) 0.025 % ointment Apply 1 application to affected area twice daily as needed. uses near vaginal area nystatin (MYCOSTATIN) cream Apply to affected area twice daily. until rash clears then one more week then discontinue Cholecalciferol, Vitamin D3, 50 mcg (2,000 unit) cap Take 1 capsule by mouth once daily. dorzolamide HCl/PF (DORZOLAMIDE, PF,) 2 % drop Use 1 Drop in eyes three times daily. glycerin-min oil-polycarbophil (REPLENS) gel Uses Replens cream 3 times weekly loperamide HCl (IMODIUM A-D ORAL) Take by mouth. (Patient not taking: No sig reported) LACTOBACILLUS ACIDOPHILUS (PROBIOTIC ORAL) Take by mouth. COMPOUNDED PRESCRIPTION Massage therapy Dx: Fibromyalgia, Arthritis CALCIUM 600 + D(3) 600 MG-200 UNIT ORAL TAB one tab daily (Patient not taking: No sig reported) No current facility-administered medications for this visit. Review of Systems Objective BP 140/60 (BP Site: Left Arm, BP Position: Sitting, BP Cuff Size: Large Adult) Pulse 63 Temp 36.7 C (98 F) Resp 12 Ht 156.2 cm (5' 1.5) Wt 62.6 kg (138 lb) SpO2 98% BMI 25.65 kg/m 11/02/22 1046 11/02/22 1146 BP: 140/60 148/60 BP Site: Left Arm BP Position: Sitting BP Cuff Size: Large Adult Pulse: 63 Resp: 12 Temp: 36.7 C (98 F) SpO2: 98% Weight: 62.6 kg (138 lb) Height: 156.2 cm (5' 1.5) Last 5 Encounter Wt Readings: Date: Wt: 11/02/2022 62.6 kg (138 lb) 01/15/2022 59.4 kg (131 lb) 04/11/2021 59.9 kg (132 lb) 02/28/2021 61.9 kg (136 lb 6.4 oz) 02/12/2021 60.8 kg (134 lb) No waist measurement recorded Estimated body mass index is 25.65 kg/m as calculated from the following: Height as of this encounter: 156.2 cm (5' 1.5). Weight as of this encounter: 62.6 kg (138 lb). Last 5 Encounter BP Readings: Date: BP: 11/02/2022 148/60 01/15/2022 142/80 04/11/2021 178/64 02/28/2021 160/60 02/12/2021 160/74[average[ Physical Exam Constitutional: Appearance: Normal appearance. HENT: Head: Normocephalic. Eyes: Conjunctiva/sclera: Conjunctivae normal. Cardiovascular: Rate and Rhythm: Normal rate and regular rhythm. Heart sounds: Normal heart sounds. Pulmonary: Effort: Pulmonary effort is normal. Breath sounds: Normal breath sounds. Skin: General: Skin is warm and dry. Neurological: General: No focal deficit present. Mental Status: She is alert and oriented to person, place, and time. Psychiatric: Mood and Affect: Mood normal. Behavior: Behavior normal. Thought Content: Thought content normal. Judgment: Judgment normal. Component Latest Ref Rng & Units 12/01/2020 01/14/2022 Protein, Total 6.3 - 8.0 g/dL 7.0 7.4 Albumin 3.9 - 4.9 g/dL 4.1 4.3 Calcium 8.5 - 10.2 mg/dL 9.8 9.6 Bilirubin, Total 0.2 - 1.3 mg/dL 0.9 0.7 Alkaline Phosphatase 34 - 123 U/L 106 96 AST 13 - 35 U/L 20 17 Glucose 74 - 99 mg/dL 99 100 (H) BUN 7 - 21 mg/dL 13 13 Creatinine 0.58 - 0.96 mg/dL 0.79 0.85 Sodium 136 - 144 mmol/L 143 142 Potassium 3.7 - 5.1 mmol/L 3.8 3.7 Chloride 97 - 105 mmol/L 107 (H) 105 CO2 22 - 30 mmol/L 25 24 Anion Gap 9 - 18 mmol/L 11 13 ALT 7 - 38 U/L 10 8 eGFR- >60 eGFR-All Other Races . >60 eGFR >=60 mL/min/1.73m 69 WBC 3.70 - 11.00 k/uL 7.26 6.93 RBC 3.90 - 5.20 m/uL 4.58 4.89 Hemoglobin 11.5 - 15.5 g/dL 14.3 15.0 Hematocrit 36.0 - 46.0 % 44.5 46.4 (H) MCV 80.0 - 100.0 fL 97.2 94.9 MCH 26.0 - 34.0 pg 31.2 30.7 MCHC 30.5 - 36.0 g/dL 32.1 32.3 RDW-CV 11.5 - 15.0 % 13.6 13.2 Platelet Count 150 - 400 k/uL 242 256 MPV 9.0 - 12.7 fL 11.1 10.9 Absolute nRBC <0.01 k/uL <0.01 <0.01 Cholesterol, Total <200 mg/dL 198 216 (H) Triglyceride <150 mg/dL 145 111 HDL Cholesterol >39 mg/dL 45 53 LDL Cholesterol <100 mg/dL 124 (H) 141 (H) Non HDL Cholesterol <130 mg/dL 153 (H) 163 (H) Fasting Time hrs 12 9 VLDL Cholesterol <30 mg/dL 29 22 TC:HDL Ratio <5.10 4.40 4.08 LDL:HDL Ratio <2.54 2.76 (H) 2.66 (H) Vitamin D 25 Hydroxy 31.0 - 80.0 ng/mL 37.9 62.6 Assessment and Plan Encounter Diagnosis ICD-10-CM 1. Pruritic dermatitis L30.8 COMP METABOLIC PANEL CBC LIPID PANEL BASIC VITAMIN D 25 HYDROXY MAGNESIUM BLD TSH BLD T4 FREE/FREE THYROX ?neurodermatitis; slight discoloration skin upper back and on upper chest but no papules and blisters. See patient instructions 2. Essential hypertension I10 COMP METABOLIC PANEL CBC LIPID PANEL BASIC VITAMIN D 25 HYDROXY MAGNESIUM BLD TSH BLD T4 FREE/FREE THYROX BP up today. Will monitor at home. Adjust med as needed. Suspect itching and sleep issues could be contributing 3. Generalized anxiety disorder F41.1 DULoxetine (CYMBALTA) 60 mg capsule 4. Recurrent major depressive disorder, in partial remission (HCC) F33.41 DULoxetine (CYMBALTA) 60 mg capsule 5. Vaginal burning N94.9 estradiol (ESTRACE) 0.01 % (0.1 mg/gram) vaginal cream 6. Vaginal atrophy N95.2 estradiol (ESTRACE) 0.01 % (0.1 mg/gram) vaginal cream 7. Need for influenza vaccination Z23 8. Vitamin D deficiency E55.9 COMP METABOLIC PANEL VITAMIN D 25 HYDROXY Above issues addressed with patient. Patient involved in shared decision making for management of medical issues. History and medications reviewed. Epic updated as needed Refills and/or prescriptions taken care of and meds adjusted as indicated after reviewed history, exam and labs. Health Maintenance reviewed. Updated record and/or ordered tests as recorded. Encouraged on efforts at healthy diet and regular exercise and adequate sleep. Discussed management of skin itching,etc. Further evaluation and treatment as indicated. Rest of medical issues overall stable. Continue present management. Further evaluation and treatment as indicated. I spent a total of 42 minutes on the date of the service which included [id number] patient care, completing clinical documentation, obtaining and/or reviewing separately obtained history, performing a medically appropriate examination, counseling and educating the patient/family/caregiver, and ordering medications, tests, or procedures. Karen Resendiz MD documented in this encounterGrand Lake Joint [facility]09-12-2023 History of Present illness Narrative* Veronika Tejada MA - 10/22/2022 9:06 AM EDT [employer] NAVIGATION OUTREACH Action/FYI Return in about 6 months (around 07/16/2022) for 6 months follow up. No active MyChart Patient Identified by Name and : NO Outreach Outcome/Action Unable to reach patient: Left message Did you use a PCP flex slot to schedule this appointment? N/A Reason for Outreach Care Gap or Scheduling/Wellness visits Payer: Payor: [employer] MEDICARE / Plan: [employer] MEDICARE PPO / Product Type: PPO / Care Gap Reviewed:: Annual Wellness visit Follow-up appointment Flu Vaccine Reminder: Reminder note to check Health Maintenance for items below Health Maintenance items due: Advance Directive Discussion due on 02/10/2022 Covid-19 Vaccine(5 - Moderna series) due on 04/13/2022 Influenza Vaccine(1) due on 10/11/2022 Navigation Signature: Veronika Siddiqi MA October 22, 2022 9:06 AM documented in this encounterGrand Lake Joint [facility]07-12-[facility] History of Present illness Narrative* Soco Cummings MA - 08/21/2022 12:49 PM EDT POPULATION HEALTH NAVIGATION OUTREACH Action/FYI Spoke to pt to rescheduled missed wellness, pt doesn't want to see DISASTER 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 N/A Reason for Outreach Care Gap or Scheduling/Wellness visits Payer: Payor: HU[employer]NA MEDICARE / Plan: HU[employer]NA MEDICARE PPO / Product Type: PPO / Care Gap Reviewed:: Annual Wellness visit Reminder: Reminder note to check Health Maintenance for items below Health Maintenance items due: ADVANCE DIRECTIVE DISCUSSION due on 02/10/2022 COVID-19 VACCINE(5 - Moderna series) due on 04/13/2022 Navigation Signature: Soco Cummings MA August 21, 2022 12:49 PM documented in this encounterGrand Lake Joint Township [facility]12-29-2022 Miscellaneous Notes* Telephone Encounter - Emily Howe RN - 02/07/2022 9:38 AM EST Pt called and is notified of providers results and instructions. Pt voices understanding. Emily Howe RN * Telephone Encounter - Everardo Mensah RN - 02/07/2022 9:35 AM EST Left vm for patient to return call to nurse for provider's message. * Telephone Encounter - Karen Resendiz MD - 02/07/2022 12:12 AM EST If improving, would continue med. If not, need to consider other options. See whether rash is responding to the steroid cream (triamcinolone). If not, need to consider other options. Sent TAC 0.1% in case is responding and needed refill The following approved medication requests have been transmitted electronically. Requested Prescriptions Signed Prescriptions Disp Refills triamcinolone acetonide (KENALOG) 0.1 % cream 30 g 0 Sig: Apply 1 application to affected area twice daily as needed (back of neck and chest rash and under breast but avoid skin crease). Apply sparingly to area for rash/itching. Up to 2 weeks per rash flare up. Authorizing Provider: KAREN RESENDIZ MD * Telephone Encounter - Regina Rey LPN - 02/05/2022 2:19 PM EST Pt calls and reports the rash is still persisting on chest and back of neck. She is almost out of the cream and wondering what you would like her to do. If she is to continue the cream will need another prescription sent thru or if you want to prescribe something else that will be fine. Please advise pt. Okay to leave a message. Regina Rey LPN documented in this encounterCleveland [id number] Miscellaneous Notes* Telephone Encounter - Regina Rey LPN - 02/05/2022 2:17 PM EST Pt was given the message below. She got the pills from [facility] and has not tried them but the annal leakage has stopped and if she needs to take the pill above which is very large she will. try get down with applesauce. Regina Rey LPN * Telephone Encounter - Karen Resendiz MD - 01/17/2022 4:59 PM EST There is Questran (cholestyramine) powder that is mixed with water and drink once daily (increase as needed). Some do not like the drink mix though. Could get at local pharmacy and pay out of pocket with [place] voucher for $33 to $47 concepcion range for 90 pills. If she does not know how to get voucher online, can print RX and Voucher for her and send to pharmacy * Telephone Encounter - Gege Dutta RN - 01/17/2022 4:44 PM EST Patient calls and states that [facility] called her and stated that Colestipol would cost her $84. Patient asking if there is anything else can be prescribed due to cost? Please review and advise, Gege Dutta RN documented in this encounterGrand Lake Joint Township District [facility]12-06-2022 History of Present illness Narrative* Karen Resendiz MD - 01/15/2022 3:37 PM EST This note was created using ENDOGENXriter. Subjective Kalina Rudd is a 81 year old female. Patient presents with: F/U 6 months SUBJECTIVE: Kalina Rudd is a 81 year old year old lady here today for 6 month follow up appointment for review of medical conditions. Ongoing diarrhea issues. Leakage when has diarrhea. Worse if eats out. Can still leak with normal BMs. Dr. Olea told her she has IBS with leakage. Told her she might need [place] Had not tried Colestid, Welchol or Questran. Doing okay off clonazepam. Still not sleeping well though. Ongoing issues with itchy skin. Attributed to yeast but having back of neck and also under breasts. TAC more potent one was more effective per patient. Noted that left leg looks larger than right in medial calf area. No injuries noted.; Had shingles before once. Given form for HCDPOA and LW. Spouse and son to be HCDPOAs. Does not have a adventism home. Not sleeping at night. Sleeps in the day PAST MEDICAL HISTORY Diagnosis Date Dysthymic disorder Depression (non-psychotic) Essential hypertension, benign Generalized anxiety disorder Anxiety, Generalized Generalized osteoarthrosis, unspecified site Lichen sclerosus Myalgia and myositis, unspecified OSTEOPOROSIS NOS Osteoporosis, unspecified PAST SURGICAL HISTORY Procedure Laterality Date CHOLECYSTECTOMY Cholecystectomy COLONOSCOPY FLX DX W/COLLJ SPEC WHEN PFRMD Colonoscopy D&C DIAG &/OR THERAP, NOT OB LIG/TRNSXJ FLP TUBE ABDL/VAG APPR UNI/BI Tubal ligation Current Outpatient Medications Medication Sig Cholecalciferol, Vitamin D3, 50 mcg (2,000 unit) cap Take 1 capsule by mouth once daily. nystatin (MYCOSTATIN) cream Apply to affected area twice daily. until rash clears then one more week then discontinue omeprazole (PRILOSEC) 40 mg capsule Take 1 capsule by mouth once daily. gabapentin (NEURONTIN) 300 mg capsule TAKE 2 CAPSULES THREE TIMES DAILY DIRECTED Do not start before August 26, 2021. dorzolamide HCl/PF (DORZOLAMIDE, PF,) 2 % drop Use 1 Drop in eyes three times daily. DULoxetine (CYMBALTA) 60 mg capsule Take 1 capsule by mouth once daily. metoprolol succinate ER (TOPROL XL) 50 mg 24 hr tablet Take 1 tablet by mouth once daily. estradiol (ESTRACE) 0.01 % (0.1 mg/gram) vaginal cream Apply to urethral opening for atrophic vaginitis. Two to three times a week. triamcinolone (KENALOG) 0.025 % ointment Apply 1 application to affected area twice daily as needed. uses near vaginal area clonazePAM (KLONOPIN) 1 mg tablet Take 1 tablet by mouth daily at bedtime for 180 days. Do not start before June 19, 2020. estradiol (ESTRACE) 0.01 % (0.1 mg/gram) vaginal cream Apply to urethral area as directed (Patient not taking: Reported on 02/12/2021 ) glycerin-min oil-polycarbophil (REPLENS) gel Uses Replens cream 3 times weekly loperamide HCl (IMODIUM A-D ORAL) Take by mouth. (Patient not taking: No sig reported) LACTOBACILLUS ACIDOPHILUS (PROBIOTIC ORAL) Take by mouth. COMPOUNDED PRESCRIPTION Massage therapy Dx: Fibromyalgia, Arthritis CALCIUM 600 + D(3) 600 MG-200 UNIT ORAL TAB one tab daily (Patient not taking: No sig reported) No current facility-administered medications for this visit. Review of Systems Objective BP 142/80 Pulse 61 Wt 59.4 kg (131 lb) SpO2 98% BMI (P) 24.35 kg/m Physical Exam Constitutional: Appearance: Normal appearance. HENT: Head: Normocephalic. Eyes: Conjunctiva/sclera: Conjunctivae normal. Cardiovascular: Rate and Rhythm: Normal rate and regular rhythm. Heart sounds: Normal heart sounds. Pulmonary: Effort: Pulmonary effort is normal. Breath sounds: Normal breath sounds. Skin: General: Skin is warm and dry. Comments: Hands dry; fissure left index finger ulnar side of PIP joint Neurological: General: No focal deficit present. Mental Status: She is alert and oriented to person, place, and time. Psychiatric: Mood and Affect: Mood normal. Behavior: Behavior normal. Thought Content: Thought content normal. Judgment: Judgment normal. Assessment and Plan ASSESSMENT/PLAN: 1. Irritable bowel syndrome with diarrhea - ICD9: 564.1, ICD10: K58.0 (primary diagnosis) Discussed options. Further evaluation and treatment as indicated. - COLESTIPOL 1 GRAM TABLET 2. S/P cholecystectomy - ICD9: V45.79, ICD10: Z90.49 As noted above - COLESTIPOL 1 GRAM TABLET 3. Dermatitis - ICD9: 692.9, ICD10: L30.9 - discussed skin care of rash - follow up if symptoms persist or worsen. - TRIAMCINOLONE ACETONIDE 0.1 % TOPICAL CREAM - TRIAMCINOLONE ACETONIDE 0.1 % TOPICAL CREAM 4. Chronic vaginitis - ICD9: 616.10, ICD10: N76.1 - TRIAMCINOLONE ACETONIDE 0.025 % TOPICAL OINTMENT 5. Recurrent major depressive disorder, in partial remission (HCC) - ICD9: 296.35, ICD10: F33.41 Continue present management. Further evaluation and treatment as indicated. 6. Essential hypertension - ICD9: 401.9, ICD10: I10 - suboptimal control - Continue current medication(s) - Recommended regular aerobic exercise. - Recommend home blood pressure monitoring, to bring results in on next visit - Goal of BP <130/80 7. Generalized anxiety disorder - ICD9: 300.02, ICD10: F41.1 Continue present management. Further evaluation and treatment as indicated. Karen Resendiz MD documented in this encounterGrand Lake Joint Township [facility]11-25-2022 Miscellaneous Notes* Telephone Encounter - Xochitl Simeon LPN - 01/04/2022 4:17 PM EST Pt notified that rx has been sent to her pharmacy and will check there later. Xochitl Simeon LPN * Telephone Encounter - Xochitl Simeon LPN - 01/04/2022 1:51 PM EST Pt calling and stated that on 12/20/21 she picked up her Nystatin cream and the pharmacy dispensed a 30gm tube instead of 15gm so she is out of refills and stated that she will not have enough medication to last the weekend. Please advise how you want to proceed from here? Xochitl Simeon LPN documented in this encounterGrand Lake Joint Township [facility]11-09-2022 Miscellaneous Notes* Telephone Encounter - Manuela Swain RN - 12/19/2021 1:35 PM EST Patient notified and voiced understanding. The following approved medications have been transmitted electronically. Requested Prescriptions Signed Prescriptions Disp Refills nystatin (MYCOSTATIN) cream 15 g 1 Sig: Apply to affected area twice daily. until rash clears then one more week then discontinue Authorizing Provider: KECIA CARDENAS Pharmacy Information Pharmacy Address Telephone [facility] [facility] [place] [id number] Manuela Swain RN * Telephone Encounter - Kecia Cardenas APRN.CNP - 12/19/2021 12:52 PM EST Either one is fine. I filed the prescription. Kecia Cardenas APRN.CNP * Telephone Encounter - Emilie Pineda RN - 12/19/2021 12:30 PM EST Patient states rash under breasts has improved, but higher on chest is about the same. She has beenusing nystatin cream and cornstarch powder twice a day. Needs refill of the cream. Asking if she should she continue that or switch to the Nystop powder? Requested Prescriptions Pending Prescriptions Disp Refills nystatin (MYCOSTATIN) cream 15 g 1 Sig: Apply to affected area twice daily. until rash clears then one more week then discontinue Emilie Pineda RN documented in this encounterGrand Lake Joint Township [facility]11-03-2022 Miscellaneous Notes* Telephone Encounter - Xochitl Simeon LPN - 12/13/2021 9:48 AM EDT Spoke with pt and she is going to use the cream with a light dusting of cornstarch powder for now. Pt will contact our office with any further issues. Xochitl Simeon LPN * Telephone Encounter - Kecia Cardenas APRN.CNP - 12/13/2021 9:41 AM EDT If she would like, she can use the Nystop powder instead of the cream. Or she can use a little cornstarch powder after using the cream to absorb any moisture. Please verify pharmacy. Kecia Cardenas APRN.CNP * Telephone Encounter - Emilie Pineda RN - 12/13/2021 9:20 AM EDT Patient just got refill of nystatin cream last night. Doesn't feel that rash is getting better. Nowmore on top of breasts towards neck too. Pharmacist told her to maybe use some powder under breast to keep it more dry too. States at night she has been using Kleenex to try to keep it dry, but it usually moist when she wakes up. Please advise. Emilie Pineda RN documented in this encounterGrand Lake Joint Township District [facility] Hospital10-27-2022 Miscellaneous Notes* Telephone Encounter - Kym Celestin RN - 12/06/2021 8:40 AM EDT Patient notified. Kym Celestin RN * Telephone Encounter - Kecia Cardenas APRN.CNP - 12/06/2021 8:21 AM EDT Prescription refilled. Please notify pt. Kecia Cardenas APRN.CNP * Telephone Encounter - Kym Celestin RN - 12/06/2021 8:17 AM EDT Patient called to report a yeast infection under her breasts. Rash has been there for one week. States she did well with the Nystatin cream, but not the powder. RX for Nystatin Cream to be sent to [facility] pharmacy pending. Patient would like a call back. Kym Celestin RN documented in this encounterGrand Lake Joint Township [facility] Hospital10-21-2022 Miscellaneous Notes* Telephone Encounter - Emilie Pineda RN - 11/30/2021 8:20 AM EDT Rx faxed to [facility]. Emilie Pineda RN * Telephone Encounter - Kecia Cardenas APRN.CNP - 11/30/2021 6:50 AM EDT Order signed. Please fax. Kecia Cardenas APRN.CNP * Telephone Encounter - Emilie Pineda RN - 11/29/2021 3:13 PM EDT Last saw AG 04/11/21 for lichen sclerosus. Calling for refill of clobetasol. States she has been out of it for awhile - unable to say how long exactly. Having minimal irritation and only on some days. [facility] compounding rx to AG to sign. Patient aware provider back in office tomorrow. Emilie Pineda RN documented in this encounterGrand Lake Joint Township District [facility] Hospital06-08-2022 Instructions* Patient Instructions* Karen Resendiz MD - 07/18/2021 5:11 PM EDT Vitamin D3 2000 units once daily should be fine since Vitamin D level was drifting down the past years since stopped taking the supplement. Calcium supplements if not able to get 1200 to 1500 mg per day in diet. If get at least 1 to 2 servings of milk products,could try taking just 1 dose (500 to 600mg tablet). May take Lactaid with milk products to prevent diarrhea. documented in this encounterGrand Lake Joint Township District [facility] Hospital06-08-2022 History of Present illness Narrative* Karen Resendiz MD - 07/18/2021 5:07 PM EDT This note was created using ENDOGENXriter. Subjective Kalina Rudd is a 81 year old female. HISTORY Kalina Rudd is a 81 year old lady here for yearly exam and follow up appointment. Has had bowel leakage and had seen Dr. Olea--told her no one in [place] does surgery for this. Passes gas frequently and leaks stool then. Wonders if ice cream contributes. Does get Lactaid milk but not drink it--for . Rarely eats cereal. Has lost weight. Eats small portions--brunch and supper. Does not eat a lot of veggies. Eats apples and oranges and salad. Does get protein from meats. Not going out to eat much because of pandemic--had diarrhea when went out. Eats some chips and cookies. Still not sleeping at all at night. Sleeps in AM and in AM till 2PM. Does not want to be up in AM. Puts in eye drops, 9AM, 2PM and 7PM-- takes care of getting up for 9AM and 2PM drops. Noted back pain since making a lot of cookies for a graduation libertarian. Abrasion on left forearm from hitting something on her dryer. Salve helping. Likes being in their condo instead of the house had been in for years. PAST MEDICAL HISTORY Diagnosis Date Dysthymic disorder Depression (non-psychotic) Essential hypertension, benign Generalized anxiety disorder Anxiety, Generalized Generalized osteoarthrosis, unspecified site Lichen sclerosus Myalgia and myositis, unspecified OSTEOPOROSIS NOS Osteoporosis, unspecified Current Outpatient Medications Medication Sig DULoxetine (CYMBALTA) 60 mg capsule Take 1 capsule by mouth once daily. metoprolol succinate ER (TOPROL XL) 50 mg 24 hr tablet Take 1 tablet by mouth once daily. estradiol (ESTRACE) 0.01 % (0.1 mg/gram) vaginal cream Apply to urethral opening for atrophic vaginitis. Two to three times a week. omeprazole (PRILOSEC) 40 mg capsule Take 1 capsule by mouth once daily. [START ON 08/26/2021] gabapentin (NEURONTIN) 300 mg capsule TAKE 2 CAPSULES THREE TIMES DAILY DIRECTED Do not start before August 26, 2021. triamcinolone (KENALOG) 0.025 % ointment Apply 1 application to affected area twice daily as needed. uses near vaginal area clonazePAM (KLONOPIN) 1 mg tablet Take 1 tablet by mouth daily at bedtime for 180 days. Do not start before June 19, 2020. nystatin (MYCOSTATIN) cream Apply to affected area twice daily. until rash clears then one more week then discontinue (Patient not taking: Reported on 07/18/2021 ) estradiol (ESTRACE) 0.01 % (0.1 mg/gram) vaginal cream Apply to urethral area as directed (Patient not taking: Reported on 02/12/2021 ) glycerin-min oil-polycarbophil (REPLENS) gel Uses Replens cream 3 times weekly loperamide HCl (IMODIUM A-D ORAL) Take by mouth. (Patient not taking: Reported on 07/18/2021 ) LACTOBACILLUS ACIDOPHILUS (PROBIOTIC ORAL) Take by mouth. COMPOUNDED PRESCRIPTION Massage therapy Dx: Fibromyalgia, Arthritis CALCIUM 600 + D(3) 600 MG-200 UNIT ORAL TAB one tab daily (Patient not taking: ) No current facility-administered medications for this visit. ALLERGIES Allergen Reactions Amitriptyline Other: See Comments Could not urinate Codeine chest pain Sulfa (Sulfonamide * Hives, Swelling, Itching Trazodone vivid dreams FAMILY HISTORY Problem Relation Age of Onset Heart Father mi at age 60's Hypertension Father Hypertension Mother other (ovarian cancer [Other]) Sister Hypertension Sister Diabetes Maternal Grandmother Stroke Maternal Grandmother Hypertension Son Social History Tobacco Use Smoking status: Never Smoker Smokeless tobacco: Never Used Substance Use Topics Alcohol use: No Drug use: No Review of Systems Objective BP (P) 138/74 (BP Site: Left Arm, BP Position: Sitting, BP Cuff Size: Regular Adult) Pulse (P) 60 Resp (P) 16 Ht (P) 156.2 cm (5' 1.5) Wt (P) 59.4 kg (131 lb) BMI (P) 24.35 kg/m Last 5 Encounter Wt Readings: Date: Wt: 04/11/2021 59.9 kg (132 lb) 02/28/2021 61.9 kg (136 lb 6.4 oz) 02/12/2021 60.8 kg (134 lb) 12/26/2020 63.7 kg (140 lb 6.4 oz) 10/21/2020 68.5 kg (151 lb) No waist measurement recorded Estimated body mass index is 24.35 kg/m (pended) as calculated from the following: Height as of this encounter: (P) 156.2 cm (5' 1.5). Weight as of this encounter: (P) 59.4 kg (131 lb). Last 5 Encounter BP Readings: Date: BP: 04/11/2021 178/64 02/28/2021 160/60 02/12/2021 160/74[average[ 12/26/2020 160/70 10/21/2020 122/70 Physical Exam Vitals reviewed. Constitutional: Appearance: She is well-developed. HENT: Head: Normocephalic and atraumatic. Right Ear: External ear normal. Left Ear: External ear normal. Nose: Nose normal. Eyes: Conjunctiva/sclera: Conjunctivae normal. Neck: Thyroid: No thyromegaly. Cardiovascular: Rate and Rhythm: Normal rate and regular rhythm. Pulses: Normal pulses. Heart sounds: Normal heart sounds. No murmur heard. No friction rub. No gallop. Pulmonary: Effort: Pulmonary effort is normal. Breath sounds: Normal breath sounds. Abdominal: General: Bowel sounds are normal. There is no distension. Palpations: Abdomen is soft. There is no mass. Tenderness: There is no abdominal tenderness. Musculoskeletal: General: No deformity. Normal range of motion. Thoracic back: Spasms (tight with spasm on left ) and tenderness (left paravertebral muscles) present. Lymphadenopathy: Cervical: No cervical adenopathy. Skin: General: Skin is warm and dry. Coloration: Skin is not jaundiced or pale. Findings: No rash. Neurological: General: No focal deficit present. Mental Status: She is alert and oriented to person, place, and time. Cranial Nerves: No cranial nerve deficit. Sensory: No sensory deficit. Motor: No abnormal muscle tone. Coordination: Coordination normal. Deep Tendon Reflexes: Reflexes normal. Psychiatric: Mood and Affect: Mood normal. Behavior: Behavior normal. Thought Content: Thought content normal. Judgment: Judgment normal. Assessment and Plan ASSESSMENT/PLAN: 1. Fibromyalgia - ICD9: 729.1, ICD10: M79.7 (primary diagnosis) Continue present management. 2. Generalized anxiety disorder - ICD9: 300.02, ICD10: F41.1 Continue present management. 3. Vitamin D deficiency - ICD9: 268.9, ICD10: E55.9 Resume Vitamin D - VITAMIN D 25 HYDROXY 4. Fecal smearing - ICD9: 787.62, ICD10: R15.1 Treat for probable lactose intoleralce 5. Recurrent major depressive disorder, in partial remission (HCC) - ICD9: 296.35, ICD10: F33.41 Continue present management. 6. Essential hypertension - ICD9: 401.9, ICD10: I10 - good control - Continue current medication(s) - Recommended regular aerobic exercise. - Recommend home blood pressure monitoring, to bring results in on next visit - Goal of BP <130/80 - CBC - COMP METABOLIC PANEL - LIPID PANEL BASIC 7. Mixed hyperlipidemia - ICD9: 272.2, ICD10: E78.2 - good control - Encouraged following a low carbohydrate, healthy oil intake diet. - LIPID PANEL BASIC Karen Resendiz MD documented in this encounterGrand Lake Joint Township [facility]05-10-2022 Miscellaneous Notes* Telephone Encounter - Maddie Sahu APRN.CNS - 06/19/2021 1:41 PM EDT Rx sent. Labs 11/30 Lab orders in. Check to see if can add to July schedule with Karen Resendiz MD. * Telephone Encounter - Gege Dutta RN - 06/19/2021 12:13 PM EDT Patient calls and states that she is supposed to get her yearly done in July. Patient states that it has been awhile since she has gotten labs done. Patient wants to see Dr. Resendiz for annual exam. Please review and advise, Gege Dutta RN documented in this encounterGrand Lake Joint Township District Memorial HospitalEvaluation note* Diagnosis Essential hypertension- Primary Unspecified essential hypertension Generalized anxiety disorder Recurrent major depressive disorder, in partial remission (HCC) HYPERCHOLESTEROLEMIA Pure hypercholesterolemia documented in this encounter [facility] [place] [facility]* Diagnosis Fibromyalgia- Primary Mylagia and myositis, unspecified Generalized anxiety disorder Vitamin D deficiency Unspecified vitamin D deficiency Fecal smearing Recurrent major depressive disorder, in partial remission (HCC) Essential hypertension Unspecified essential hypertension Mixed hyperlipidemia documented in this encounter [facility] [place] [facility]* Diagnosis Intertrigo- Primary Other specified erythematous condition documented in this encounter [facility] [place] [facility]* Diagnosis Irritable bowel syndrome with diarrhea- Primary Irritable bowel syndrome S/P cholecystectomy Other acquired absence of organ Dermatitis Contact dermatitis and other eczema, due to unspecified cause Chronic vaginitis Vaginitis and vulvovaginitis, unspecified Recurrent major depressive disorder, in partial remission (HCC) Essential hypertension Unspecified essential hypertension Generalized anxiety disorder documented in this encounter [facility] [place] [facility]* Diagnosis Dermatitis Contact dermatitis and other eczema, due to unspecified cause documented in this [facility] Diagnosis Pruritic dermatitis- Primary Unspecified pruritic disorder Essential hypertension Unspecified essential hypertension Generalized anxiety disorder Recurrent major depressive disorder, in partial remission (HCC) Vaginal burning Other specified symptom associated with female genital organs Vaginal atrophy Postmenopausal atrophic vaginitis Need for influenza vaccination Need for prophylactic vaccination and inoculation against influenza Vitamin D deficiency Unspecified vitamin D deficiency documented in this [facility] [place] Diagnosis Essential hypertension- Primary Unspecified essential hypertension Dermatitis Contact dermatitis and other eczema, due to unspecified cause Recurrent major depressive disorder, in partial remission (HCC) Encounter for immunization Need for other specified prophylactic vaccination against single bacterial disease Encounter for long-term current use of medication documented in this encounter [facility] [place]* Diagnosis Generalized anxiety disorder Recurrent major depressive disorder, in partial remission (HCC) documented in this encounter [facility]* Diagnosis Vitamin D deficiency- Primary Unspecified vitamin D deficiency Other insomnia Eczema, unspecified type Essential hypertension Unspecified essential hypertension Recurrent major depressive disorder, in partial remission (HCC) documented in this encounter [facility] [place] [facility]* Diagnosis Fibromyalgia- Primary Mylagia and myositis, unspecified Essential hypertension Unspecified essential hypertension documented in this [facility] Diagnosis Essential hypertension- Primary Unspecified essential hypertension documented in this encounter [facility] [place] Diagnosis Encounter for medical assessment- Primary documented in this [facility]* Diagnosis Essential hypertension- Primary Unspecified essential hypertension Coronary artery disease involving [place] coronary artery of [place] heart without angina pectoris S/P angioplasty with stent Other postprocedural status HYPERCHOLESTEROLEMIA Pure hypercholesterolemia Atopic dermatitis, unspecified type Fibromyalgia Mylagia and myositis, unspecified Gastro-esophageal reflux disease without esophagitis Esophageal reflux documented in this [facility]* Diagnosis Acute cough- Primary Acute non-recurrent sinusitis, unspecified location Essential hypertension Unspecified essential hypertension History of ST elevation myocardial infarction (STEMI) Old myocardial infarction Coronary artery disease involving [place] coronary artery of [place] heart with angina pectoris (HCC) S/P angioplasty with stent Other postprocedural status Acute cough documented in this encounter [facility] [place] [facility]* Diagnosis Acute cough [facility] Diagnosis Medicare annual wellness visit, subsequent- Primary Routine general medical examination at a [facility] Bilateral lower extremity edema Edema Generalized anxiety disorder Recurrent major depressive disorder, in partial remission Essential hypertension Unspecified essential hypertension Vitamin D deficiency Unspecified vitamin D deficiency S/P angioplasty with stent Other postprocedural status Coronary artery disease involving [place] coronary artery of [place] heart without angina pectoris Fibromyalgia Mylagia and myositis, unspecified Encounter for immunization Need for other specified prophylactic vaccination against single bacterial disease Encounter for long-term current use of medication Pain in right hip Pain in joint, pelvic region and thigh senior care (current) use of anticoagulants Long-term (current) use of anticoagulants Dermatitis, unspecified documented in this encounter [facility] note* Diagnosis Acute bronchitis, unspecified organism- Primary Wheezing Acute cough Recent bereavement documented [facility] this [facility] Diagnosis Onset Date Resolution Status Admit Date Aortic regurgitation acute September 07, 2024 8:06am History of coronary artery s tent placement acute September 07, 2024 8:06am HTN (hypertension) chronic August 112024 8:06am [facility] Work Phone: Evaluation note* Diagnosis Grief reaction- Primary Adjustment disorder with depressed mood Stage 3b chronic kidney disease (HCC) Unintentional weight loss Loss of weight IFG (impaired fasting glucose) Impaired fasting glucose Recurrent major depressive disorder, in partial remission Essential hypertension Unspecified essential hypertension Adjustment insomnia Transient disorder of initiating or maintaining sleep Elevated TSH Nonspecific abnormal results of thyroid function study documented in this encounter [facility] course Narrative No data available for this section [facility] Reason for referral (narrative)No reason for referral information availableEst[facility] Work Phone: Advance Directives No Advanced Directives Records FoundDocuments on File Type Date Recorded Patient Roving Hand Expl anation Advance Directive(s) Advance Directive Response Recorded Date/ Time Advance Directives No February 21, 2016 2:52pm Reason for Referral Specialty Diagnoses / Procedures Referred By Contac t Referred To Contact Diagnoses Eczema, unspecified type Nelli Reyes APRN.DARREN [address] [place] [address] Referral ID Status Reason Start Date Expiration Date V isits Requested Visits Authorized [id number] Pending Review 11/07/2023 01/06/2024 1 1 Specialty Diagnoses / Procedures Referred By Contac t Referred To Contact Diagnoses Karen Bryan MD [address] [place] [address] Referral ID Status Reason Start Date Expiration Date V isits Requested Visits Authorized [id number] Pending Review 01/01/2024 03/01/2024 1 1 Summary Purpose Family History Relationship Condition Age at Onset Recorded Date/T shirley father Hypertension Unknown History of coronary artery bypass surgery Unknown No Family History Records Found Chief Complaint and Reason for Visit Chief Complaint Admit Date See clinical notes L.L. (KR approved) Sue grimes 2024 8:06am Reason for Visit Admit Date Aortic regurgitation September 07, 2024 8:0 6am History of coronary artery stent placeme nt September 07, 2024 8:06am HTN (hypertension) September 07, 2024 8:06 am Chief Complaint Admit Date See clinical notes L.L. (KR approved) Sue grimes 2024 8:06am INT LAB September 07, 2024 9:01 am Reason for Visit Admit Date Aortic regurgitation September 07, 2024 8:0 6am JAMIL (dyspnea on exertion) September 07 8:06am Fatigue September 07, 2024 8:06 am History of coronary artery stent placeme nt September 07, 2024 8:06am HTN (hypertension) September 07, 2024 8:06 am Additional Source Comments Source Comments (unrecognize d section and content) In the event this informatio n is protected by the Federal Confidentiality of Alcohol and Drug Abuse Patient Records regulations: The Federal rules restrict any use of the information to criminally investigate or prosecute any alcohol or drug abuse patient.[facility] the event this information is protected by the Federal Confidentiality of Alcohol and Drug Abuse Patient Records regulations: The Federal rules restrict any use of the information to criminally investigate or prosecute any alcohol or drug abuse patient.[facility]In the event this information is protected by the Federal Confidentiality of Alcohol and Drug Abuse Patient Records regulations: The Federal rules restrict any use of the information to criminally investigate or prosecute any alcohol or drug abuse patient.[facility]In the event this information is protected by the Federal Confidentiality of Alcohol and Drug Abuse Patient Records regulations: The Federal rules restrict any use of the information to criminally investigate or prosecute any alcohol or drug abuse patient.[facility]In the event this information is protected by the Federal Confidentiality of Alcohol and Drug Abuse Patient Records regulations: The Federal rules restrict any use of the information to criminally investigate or prosecute any alcohol or drug abuse patient.[facility] HospitalIn the event this information is protected by the Federal Confidentiality of Alcohol and Drug Abuse Patient Records regulations: The Federal rules restrict any use of the information to criminally investigate or prosecute any alcohol or drug abuse patient.[facility] HospitalIn the event this information is protected by the Federal Confidentiality of Alcohol and Drug Abuse Patient Records regulations: The Federal rules restrict any use of the information to criminally investigate or prosecute any alcohol or drug abuse patient.[facility] HospitalIn the event this information is protected by the Federal Confidentiality of Alcohol and Drug Abuse Patient Records regulations: The Federal rules restrict any use of the information to criminally investigate or prosecute any alcohol or drug abuse patient.[facility] HospitalIn the event this information is protected by the Federal Confidentiality of Alcohol and Drug Abuse Patient Records regulations: The Federal rules restrict any use of the information to criminally investigate or prosecute any alcohol or drug abuse patient.[facility] HospitalIn the event this information is protected by the Federal Confidentiality of Alcohol and Drug Abuse Patient Records regulations: The Federal rules restrict any use of the information to criminally investigate or prosecute any alcohol or drug abuse patient.[facility] HospitalIn the event this information is protected by the Federal Confidentiality of Alcohol and Drug Abuse Patient Records regulations: The Federal rules restrict any use of the information to criminally investigate or prosecute any alcohol or drug abuse patient.[facility] HospitalIn the event this information is protected by the Federal Confidentiality of Alcohol and Drug Abuse Patient Records regulations: The Federal rules restrict any use of the information to criminally investigate or prosecute any alcohol or drug abuse patient.[facility] HospitalIn the event this information is protected by the Federal Confidentiality of Alcohol and Drug Abuse Patient Records regulations: The Federal rules restrict any use of the information to criminally investigate or prosecute any alcohol or drug abuse patient.[facility] HospitalIn the event this information is protected by the Federal Confidentiality of Alcohol and Drug Abuse Patient Records regulations: The Federal rules restrict any use of the information to criminally investigate or prosecute any alcohol or drug abuse patient.[facility] HospitalIn the event this information is protected by the Federal Confidentiality of Alcohol and Drug Abuse Patient Records regulations: The Federal rules restrict any use of the information to criminally investigate or prosecute any alcohol or drug abuse patient.[facility] HospitalIn the event this information is protected by the Federal Confidentiality of Alcohol and Drug Abuse Patient Records regulations: The Federal rules restrict any use of the information to criminally investigate or prosecute any alcohol or drug abuse patient.[facility] HospitalIn the event this information is protected by the Federal Confidentiality of Alcohol and Drug Abuse Patient Records regulations: The Federal rules restrict any use of the information to criminally investigate or prosecute any alcohol or drug abuse patient.[facility] HospitalIn the event this information is protected by the Federal Confidentiality of Alcohol and Drug Abuse Patient Records regulations: The Federal rules restrict any use of the information to criminally investigate or prosecute any alcohol or drug abuse patient.[facility] HospitalIn the event this information is protected by the Federal Confidentiality of Alcohol and Drug Abuse Patient Records regulations: The Federal rules restrict any use of the information to criminally investigate or prosecute any alcohol or drug abuse patient.[facility] HospitalIn the event this information is protected by the Federal Confidentiality of Alcohol and Drug Abuse Patient Records regulations: The Federal rules restrict any use of the information to criminally investigate or prosecute any alcohol or drug abuse patient.[facility] HospitalIn the event this information is protected by the Federal Confidentiality of Alcohol and Drug Abuse Patient Records regulations: The Federal rules restrict any use of the information to criminally investigate or prosecute any alcohol or drug abuse patient.[facility] HospitalIn the event this information is protected by the Federal Confidentiality of Alcohol and Drug Abuse Patient Records regulations: The Federal rules restrict any use of the information to criminally investigate or prosecute any alcohol or drug abuse patient.[facility] HospitalIn the event this information is protected by the Federal Confidentiality of Alcohol and Drug Abuse Patient Records regulations: The Federal rules restrict any use of the information to criminally investigate or prosecute any alcohol or drug abuse patient.[facility] HospitalIn the event this information is protected by the Federal Confidentiality of Alcohol and Drug Abuse Patient Records regulations: The Federal rules restrict any use of the information to criminally investigate or prosecute any alcohol or drug abuse patient.[facility] HospitalIn the event this information is protected by the Federal Confidentiality of Alcohol and Drug Abuse Patient Records regulations: The Federal rules restrict any use of the information to criminally investigate or prosecute any alcohol or drug abuse patient.[facility] HospitalIn the event this information is protected by the Federal Confidentiality of Alcohol and Drug Abuse Patient Records regulations: The Federal rules restrict any use of the information to criminally investigate or prosecute any alcohol or drug abuse patient.[facility] HospitalIn the event this information is protected by the Federal Confidentiality of Alcohol and Drug Abuse Patient Records regulations: The Federal rules restrict any use of the information to criminally investigate or prosecute any alcohol or drug abuse patient.[facility] HospitalIn the event this information is protected by the Federal Confidentiality of Alcohol and Drug Abuse Patient Records regulations: The Federal rules restrict any use of the information to criminally investigate or prosecute any alcohol or drug abuse patient.[facility] HospitalIn the event this information is protected by the Federal Confidentiality of Alcohol and Drug Abuse Patient Records regulations: The Federal rules restrict any use of the information to criminally investigate or prosecute any alcohol or drug abuse patient.[facility] HospitalIn the event this information is protected by the Federal Confidentiality of Alcohol and Drug Abuse Patient Records regulations: The Federal rules restrict any use of the information to criminally investigate or prosecute any alcohol or drug abuse patient.[facility] HospitalIn the event this information is protected by the Federal Confidentiality of Alcohol and Drug Abuse Patient Records regulations: The Federal rules restrict any use of the information to criminally investigate or prosecute any alcohol or drug abuse patient.[facility] HospitalIn the event this information is protected by the Federal Confidentiality of Alcohol and Drug Abuse Patient Records regulations: The Federal rules restrict any use of the information to criminally investigate or prosecute any alcohol or drug abuse patient.[facility] HospitalIn the event this information is protected by the Federal Confidentiality of Alcohol and Drug Abuse Patient Records regulations: The Federal rules restrict any use of the information to criminally investigate or prosecute any alcohol or drug abuse patient.[facility] HospitalIn the event this information is protected by the Federal Confidentiality of Alcohol and Drug Abuse Patient Records regulations: The Federal rules restrict any use of the information to criminally investigate or prosecute any alcohol or drug abuse patient.[facility] HospitalIn the event this information is protected by the Federal Confidentiality of Alcohol and Drug Abuse Patient Records regulations: The Federal rules restrict any use of the information to criminally investigate or prosecute any alcohol or drug abuse patient.[facility] HospitalIn the event this information is protected by the Federal Confidentiality of Alcohol and Drug Abuse Patient Records regulations: The Federal rules restrict any use of the information to criminally investigate or prosecute any alcohol or drug abuse patient.[facility] HospitalIn the event this information is protected by the Federal Confidentiality of Alcohol and Drug Abuse Patient Records regulations: The Federal rules restrict any use of the information to criminally investigate or prosecute any alcohol or drug abuse patient.[facility] Reason for Visit (unrecogniz ed section and content) Reason Onset Date Comments Refill Request 06/19/2021 Reason Comments Yearly Exam Reason Comments Refill Request Reason Onset Date Comments Refill Request 12/06/2021 Reason Comments Patient Update Reason Onset Date Comments Refill Request 01/04/2022 Reason Comments Medication Problem Reason Comments F/U 6 months Reason Comments rash persisting Reason Onset Date Comments Population Health Navigation Outreach 08/21/2022 [employer] care gaps Reason Onset Date Comments Population Health Navigation Outreach 10/22/2022 [employer] Care Gaps Reason Onset Date Comments Follow Up rash on neck and chest, itchy x 9 months Immunizations 11/02/2022 Flu vaccination Reason Onset Date Comments Refill Request 12/05/2022 Reason Onset Date Comments Refill Request 08/15/2023 Reason Comments F/U 6 months Derm Problem itchy areas on chest , neck and upper back Reason Comments Results Reason Comments Blood Pressure Reason Onset Date Comments Refill Request 12/31/2023 Reason Comments Insurance Authorization Reason Comments Headache High blood pressure Reason Onset Date Comments Escalation of Care 01/17/2024 Reason Onset Date Comments Transition Of Care 01/21/2024 [facility] 01/19/2024 - Initial outreach Reason Comments Patient Question Reason Onset Date Comments ACM LUCIAN RN 01/26/2024 No action nee ded. Reason Onset Date Comments Transition Of Care 02/02/2024 Follow up day 14 Reason Comments Hospital F/U Jordy x 2 hospital visits Reason Comments Chest Pain Reason Comments Cough dry sounding for abo ut 2 weeks more at night. Clear nasal drainage. scratchy throat Reason Onset Date Comments Refill Request 03/15/2024 Reason Comments Medicare Wellness Exam Reason Comments Cough Since Friday. Lost h usband 2 weeks ago. Reason Comments Recheck Follow up, review ro bs. depression Care Teams (unrecognized sec tion and content) Dimmer Board Operator Relationship Specialty Start Date End Date Karen Resendiz MD [address] [place] [id number] PCP - General 12/01/01 Dimmer Board Operator Relationship Specialty Start Date End Date Karen Resendiz MD [address] [place] [id number] PCP - General 12/01/01 Dimmer Board Operator Relationship Specialty Start Date End Date Karen Resendiz MD [address] [place] [id number] PCP - General 12/01/01 Dimmer Board Operator Relationship Specialty Start Date End Date Karen Resendiz MD [address] [place] [id number] PCP - General 12/01/01 Dimmer Board Operator Relationship Specialty Start Date End Date Karen Resendiz MD [address] [place] [id number] PCP - General 12/01/01 Dimmer Board Operator Relationship Specialty Start Date End Date Karen Resendiz MD [address] [place] [address] PCP - General 12/01/01 Dimmer Board Operator Relationship Specialty Start Date End Date Karen Resendiz MD [address] [place] [address] PCP - General 12/01/01 Dimmer Board Operator Relationship Specialty Start Date End Date Karen Resendiz MD [address] [place] [address] PCP - General 12/01/01 Dimmer Board Operator Relationship Specialty Start Date End Date Karen Resendiz MD [address] [place] [address] PCP - General 12/01/01 Dimmer Board Operator Relationship Specialty Start Date End Date Karen Resendiz MD [address] [place] [address] PCP - General 12/01/01 Dimmer Board Operator Relationship Specialty Start Date End Date Karen Resendiz MD [address] [place] [address] PCP - General 12/01/01 Dimmer Board Operator Relationship Specialty Start Date End Date Karen Resendiz MD [address] [place] [address] PCP - General 12/01/01 Dimmer Board Operator Relationship Specialty Start Date End Date Karen Resendiz MD [address] [place] [address] PCP - General 12/01/01 Dimmer Board Operator Relationship Specialty Start Date End Date Karen Resendiz MD [address] [place], [place] [id number] PCP - General 12/01/01 Dimmer Board Operator Relationship Specialty Start Date End Date Karen Resendiz MD [address] [place] [address] PCP - General 12/01/01 Dimmer Board Operator Relationship Specialty Start Date End Date Karen Resendiz MD [address] [place] [address] PCP - General 12/01/01 Dimmer Board Operator Relationship Specialty [place] [address] [place] [id number] PCP - General 12/01/01 Dimmer Board Operator Relationship Specialty Start Date End Date Karen Resendiz MD [address] [place] [address] PCP - General 12/01/01 Maddie Sahu, OPERATOR TECHNICIAN.LAWN CARE SPECIALIST [address] [place] [address] [employer] Field Technician Internal Medicine 01/19/24 Nelli Reyes OPERATOR TECHNICIAN.TANDE[employer] STICKER [address] [place] [address] [employer] Field Technician Internal Medicine 01/19/24 Korina Billy, TOM [address] [place] [address] Primary Care Banking Consultant 01/20/24 Dimmer Board Operator Relationship Specialty Start Date End Date Karen Resendiz MD [address] [place] [address] PCP - General 12/01/01 Maddie Sahu APRN.LAWN CARE SPECIALIST [address] [place] [address] [employer] Field Technician Internal Medicine 01/19/24 Nelli Reyes OPERATOR TECHNICIAN.[employer]ICK[employer] [address] [place] [address] [employer] Field Technician Internal Medicine 01/19/24 Korina Billy, TOM [address] [place], [place] [id number] Primary Care Banking Consultant 01/20/24 Dimmer Board Operator Relationship Specialty Start Date End Date Karen Resendiz MD [address] [place] [address] PCP - General 12/01/01 Maddie Sahu, OPERATOR TECHNICIAN.LAWN CARE SPECIALIST [address] [place] [address] [employer] Field Technician Internal Medicine 01/19/24 Nelli Reyes OPERATOR TECHNICIAN.TANDEM MILL STICKER [address] [place] [address] [employer] Field Technician Internal Medicine 01/19/24 Korina Billy RN [address] [place], [place] [id number] Primary Care Banking Consultant 01/20/24 02/18/24 Dimmer Board Operator Relationship Specialty Start Date End Date Karen Resendiz MD [address] [place] [address] PCP - General 12/01/01 Maddie Sahu, OPERATOR TECHNICIAN.LAWN CARE SPECIALIST [address] [place] [address] [employer] Field Technician Internal Medicine 01/19/24 Nelli Reyes APRN.TANDEM MILL STICKER [address] [place] [address] [employer] Field Technician Internal Medicine 01/19/24 Dimmer Board Operator Relationship Specialty Start Date End Date Karen Resendiz MD [address] [place] [address] PCP - General 12/01/01 Maddie Sahu APRN.LAWN CARE SPECIALIST [address] [place] [address] [employer] Field Technician Internal Medicine 01/19/24 Nelli Reyes OPERATOR TECHNICIAN.TANDEM MILL STICKER [address] [place] [address] [employer] Field Technician Internal Medicine 01/19/24 Dimmer Board Operator Relationship Specialty Start Date End Date Karen Resendiz MD [address] [place] [address] PCP - General 12/01/01 Maddie Sahu, OPERATOR TECHNICIAN.LAWN CARE SPECIALIST [address] [place] [address] [employer] Field Technician Internal Medicine 01/19/24 Nelli Reyes OPERATOR TECHNICIAN.TANDEM MILL STICKER [address] [place] [address] [employer] Field Technician Internal Medicine 01/19/24 Dimmer Board Operator Relationship Specialty Start Date End Date Karen Resendiz MD [address] [place] [address] PCP - General 12/01/01 Maddie Sahu, OPERATOR TECHNICIAN.LAWN CARE SPECIALIST [address] [place], [place] [address] [facility] Internal Medicine 01/19/24 Nelli Reyes, OPERATOR TECHNICIAN.TANDEM MILL STICKER [address] [place], [place] [address] [facility] Internal Medicine 05/04/24 Dimmer Board Operator Relationship Specialty Start Date End Date Karen Resendiz MD [address] [place], [place] [id number] PCP - General 12/01/01 Nelli Reyes, OPERATOR TECHNICIAN.TANDEM MILL STICKER [address] [place] [address] [facility] Internal Medicine 05/04/24 Maddie Sahu, OPERATOR TECHNICIAN.LAWN CARE SPECIALIST [address] [place], [place] [id number] [facility] Internal Medicine 06/30/24 Team Status: Active Member Role/Relationship Status Dates Dr. Karen Resendiz MD Family Provider Active Dr. Karen Resendiz MD Primary Care Provider Active Team Status: Inactive Member Role/Relationship Status Dates Dr. Karen Resendiz MD Primary Care Provider Active Start: September 07, 2024 End: September 07, 2024 Dr. Karen Resendiz MD Referring Provider Active Start: September 07, 2024 End: September 07, 2024 Joanne Apple DISASTER RESPONSE DIRECTOR, DISASTER RESPONSE DIRECTOR-C Attending Provider Active Start: September 07, 2024 End: September 07, 2024 Dimmer Board Operator Relationship Specialty Start Date End Date Karen Resendiz MD [address] [place], [place] [id number] PCP - General 12/01/01 Nelli Reyes APRN.TANDEM MILL STICKER [address] [place] [address] [facility] Internal Medicine 05/04/24 Maddie Sahu APRN.LAWN CARE SPECIALIST [address] [place] [address] [facility] Internal Medicine 06/30/24 Team Status: Active Member Role/Relationship Status Dates Dr. Karen Resendiz MD Primary Care Provider Active Team Status: Inactive Member Role/Relationship Status Dates Dr. Karen Resendiz MD Primary Care Provider Active Start: September 07, 2024 End: September 07, 2024 oJanne Apple NP, DISASTER RESPONSE DIRECTOR-C Attending Provider Active Start: September 07, 2024 End: September 07, 2024 Joanne Apple NP, DISASTER RESPONSE DIRECTOR-C Referring Provider Active Start: September 07, 2024 End: September 07, 2024 INFORMATION SOURCE (unrecogn ized section and content) DATE CREATED AUTHOR 01/30/2024 [facility] DATE CREATED AUTHOR AUTHOR'S ORGANIZ ATION 09/10/2024 [facility] DATE CREATED AUTHOR AUTHOR'S ORGANIZ ATION 09/18/2024 [facility] Goals (unrecognized section and content) Goals may be documented in a n alternate section FOR RECORDS PERTAINING TO PATIENTS WHO ARE OR HAVE BEEN ENROLLED IN A CHEMICAL DEPENDENCY/SUBSTANCEABUSE PROGRAM, SOME INFORMATION MAY BE OMITTED. This clinical summary was aggregated from multiple sources. Caution should be exercised in using it in the provision of clinical care. This summary normalizes information from multiple sources, and as a consequence, information in this document may materially change the coding, format and clinical context of patient data. In addition, data may be omitted in some cases. CLINICAL DECISIONS SHOULD BE BASED ON THE PRIMARY CLINICAL RECORDS. [employer] provides no warranty or guarantee of the accuracy or completeness of information in this document.
[2024-09-19 06:21] LABS: Magnesium 2.5 mg/dL (1.5-2.2); Troponin T High Sensitivity 13 ng/L (<=14)
[2024-09-19 06:27] LABS: Anion Gap 14 (5-15); BUN 34 mg/dL (4-19); BUN/Creat Ratio 29.4 RATIO (10-20); Calcium,Total 9.6 mg/dL (7.6-11.0); Carbon Dioxide 20.9 mmol/L (21.0-32.0); Chloride 101 mmol/L (98-108); Estimated Creatinine Clearance 31.54 ml/min (50-250); Glucose 124 mg/dL (70-99); Potassium 4.1 mmol/L (3.3-5.1)
--- NOTE | 2024-09-19 07:14 | EX.ED.DYSGE1 ---
HPI History of Present Illness Chief Complaint: Chest Pain Informant: patient and EMS Narrative Narrative: Patient is an 84-year-old female with past med history of hypertension fibromyalgia and coronary disease with stent placement in January 2024. She states that in June 2024 her . Since that time she is dealt with severe depression. She states that last night she felt a burning discomfort along the left side of her chest. She states there was no associated nausea vomiting diaphoresis or shortness of breath. She states that she has a hard time sleeping secondary to her grief/depression. She states that she took the medication prescribed by her family doctor to help with sleep but was unable to sleep and had concern that this abnormal chest discomfort could be cardiac because of her previous heart attack and therefore called EMS to be brought in for evaluation [facility] Medical History History of left heart catheterization STEMI (ST elevation myocardial infarction) Acute coronary syndrome Fibromyalgia HTN (hypertension) Home Medications ?Medication ?Instructions ?Recorded ?Last Taken ?Type Omeprazole [Prilosec] 40 mg PO DAILY 08/23/13 02/23/16 05:00 History duloxetine 60 mg capsule,delayed 60 mg PO DAILY 08/23/13 08/23/13 08:00 History release metoprolol succinate 50 mg 50 mg PO DAILY 05/30/20 Unknown History tablet,extended release 24 hr aspirin 81 mg tablet,delayed 81 mg PO DAILY 01/24/24 Unknown History release clopidogrel 75 mg tablet 75 mg PO DAILY 01/24/24 Unknown History dorzolamide 2 % eye drops 1 drp ophthalmic (eye) TID 01/24/24 Unknown History rosuvastatin 20 mg tablet 20 mg PO QHS 01/24/24 Unknown History amlodipine 10 mg tablet 10 mg PO QDAY #30 tabs 02/20/24 Unknown Rx isosorbide mononitrate 30 mg 30 mg PO QDAY 02/20/24 Unknown History tablet,extended release 24 hr losartan 50 mg tablet 50 mg PO QDAY 02/20/24 Unknown History gabapentin 300 mg capsule 300 mg PO TIDCM 09/07/24 Unknown History Allergy/AdvReac Type Severity Reaction Status Date / Time amitriptyline Allergy Unknown Verified 09/19/24 03:54 codeine Allergy Chest Verified 09/19/24 03:54 tightness trazodone Allergy Other Verified 09/19/24 03:54 Family History Father Hypertension Hx of CABG Surgical History History of cholecystectomy History of coronary artery stent placement Social History Smoking Status: Never smoker alcohol intake: never substance use type: does not use caffeine: No ROS ROS ED Constitutional Constitutional ED: Denies chills or fever(s) Eyes Eyes: Denies change in vision ENT ENT ED: Denies sore throat Cardiovascular Cardiovascular: Reports chest pain; Denies palpitations or racing heartbeat Respiratory/Chest Respiratory/Chest: Denies cough or dyspnea Gastrointestinal Gastrointestinal: Denies abdominal pain, diarrhea, nausea or vomiting Musculoskeletal Musculoskeletal: Denies back pain or myalgias Integumentary Denies rash Neurologic Neurologic: Denies headache(s) Psychiatric Psychiatric: Reports depression Hematologic/Lymphatic Hematologic/Lymphatic: Denies easy bleeding or easy bruising EXAM Physical Exam Const Vital Signs: 09/19/24 03:55 09/19/24 03:55 09/19/24 04:54 Temperature 98.5 F Temperature Source Oral Pulse Rate 93 94 Respiratory Rate 18 18 Respiratory Effort Normal Blood Pressure 151/63 H 123/82 H Blood Pressure Mean 92 95 Pulse Ox 97 98 Oxygen Delivery Method Room Air Room Air 09/19/24 05:00 09/19/24 06:00 09/19/24 07:00 Temperature Temperature Source Pulse Rate 84 80 90 Respiratory Rate 20 H 18 19 H Respiratory Effort Blood Pressure 124/57 H 114/50 L Blood Pressure Mean 79 71 Pulse Ox 99 97 97 Oxygen Delivery Method Room Air Room Air Room Air Positive well nourished and well developed General Appearance ED: well developed; Negative for pallor HEENT Reports dry mucous membranes HEENT Narrative: Normocephalic atraumatic No tongue or lip swelling no oral lesions no airway edema or compromise; no secondary findings in the posterior pharynx to suggest infection Mouth ED: Yes dry mucous membranes Mouth: dry mucous membranes Eyes PERRL and EOMs intact bilaterally General Eye ED: Negative for scleral icterus Neck supple and no JVD Chest Wall Chest Narrative: There is reproducible left-sided chest wall pain with palpation without bony deformity or crepitance Resp normal respiratory effort and clear to auscultation bilaterally Resp Narrative: No nasal flaring retractions tachypnea or accessory muscle use Cardio regular rate and regular rhythm Rate: other Other Details: Heart is regular rate and rhythm Radial and carotid pulses are equal and symmetric No JVD noted No carotid bruit GI normal to inspection, nondistended, normoactive bowel sounds, non-tender, non-distended and no masses GI Narrative: No voluntary guarding or rigidity or pulsatile mass Auscultation: normoactive bowel sounds Palpation: soft Extremity normal to inspection Extremity Narrative: No asymmetric edema no pitting edema negative Homans' sign bilaterally Neuro oriented x3, CN's II-XII intact bilaterally and no sensory deficits noted Sensorium / Orientation: alert Motor Exam: strength 5/5 throughout Psych Psych Narrative: Patient has a depressed/flat affect Skin no rashes or lesions noted General Skin Exam: Negative for jaundice or pallor MDM MDM MDM Narrative Medical decision making narrative: Patient arrived to the ER in no acute distress. She reported a vague left-sided chest discomfort which she described more as a burning sensation. There was no associated nausea vomiting diaphoresis or shortness of breath. Symptoms are not classic cardiac in nature but she does have known CAD with stent placement and therefore this could be atypical presentation for ACS. Secondary to this an EKG was obtained. EKG showed no signs of ischemia or STEMI. She did not report any type of pleuritic chest pain and she is not tachycardic or hypoxic so I have low concern for DVT/PE and felt no need for a CTA or D-dimer. Blood work revealed no signs of acute blood loss anemia or leukocytosis to suggest secondary infection. Chest x-ray revealed no signs of pneumonia or pneumothorax or pleural effusion. The patient's troponin is normal at a value of 13. The patient states she has had pain that has been constant in nature for multiple hours. Therefore a normal troponin effectively rules out active cardiac event. However because of her advanced age and stent placement roughly 8 months ago I will do a delta troponin at 2 hours. This revealed no significant elevation indicating no signs of ACS. After receiving Ativan in the ER the patient did report improvement of symptoms. On reevaluation she is resting comfortably and vitals remained stable. Therefore at this time as workup reveals no sign of acute coronary syndrome and her symptoms have improved with treatment there is no need for further intervention or admission and she is otherwise safe for discharge. History & Record Review Discussion w/independent historian: EMS personnel and Patient Lab Data Attestation: I reviewed the patient's lab results. Labs: Laboratory Results - last 24 hr 09/19/24 09/19/24 09/19/24 04:05 04:05 04:48 WBC Cancelled 9.2 Corrected WBC Cancelled RBC Cancelled 3.84 L Hgb Cancelled 11.4 L Hct Cancelled 34.9 L MCV Cancelled 90.9 MCH Cancelled 29.7 MCHC Cancelled 32.7 RDW Std Deviation Cancelled 46.4 H RDW Coeff of Marco Antonio Cancelled 13.8 Plt Count Cancelled 221 MPV Cancelled 10.1 Immature Gran % (Auto) Cancelled 0.400 Neut % (Auto) Cancelled 65.7 Lymph % (Auto) Cancelled 23.6 [place] % (Auto) Cancelled 7.5 Eos % (Auto) Cancelled 2.4 Baso % (Auto) Cancelled 0.4 Absolute Neuts (auto) Cancelled 6.0 Absolute Lymphs (auto) Cancelled 2.17 Total Counted Cancelled Neutrophils % (Manual) Cancelled Band Neutrophils % Cancelled Lymphocytes % (Manual) Cancelled Monocytes % (Manual) Cancelled Eosinophils % (Manual) Cancelled Basophils % (Manual) Cancelled Metamyelocytes % Cancelled Myelocytes % Cancelled Promyelocytes % Cancelled Blast Cells % Cancelled Plasma Cell % (Manual) Cancelled Other Cells % Cancelled Nucleated RBC % Cancelled 0 Nucleated RBCs/100 WBC Cancelled Differential Comment Cancelled Diff Path Review Cancelled Hypersegmented Neuts Cancelled Atypical Lymphocytes Cancelled Reactive Lymphocytes Cancelled Smudge Cells Cancelled Toxic Granulation Cancelled Toxic Vacuolation Cancelled Dohle Bodies Cancelled Gloria Rods Cancelled Platelet Estimate Cancelled Plt Morphology Comment Cancelled RBC Morphology Cancelled Cancelled Polychromasia Cancelled Hypochromasia Cancelled Basophilic Stippling Cancelled Anisocytosis Cancelled Microcytosis Cancelled Macrocytosis Cancelled Spherocytes Cancelled Sickle Cells Cancelled Target Cells Cancelled Tear Drop Cells Cancelled Ovalocytes Cancelled Stomatocytes Cancelled [place] Bodies Cancelled Serena Cells Cancelled Bite Cells Cancelled Crenated Cell Cancelled Acanthocytes (Spur) Cancelled Rouleaux Cancelled Schistocytes Cancelled Sodium Cancelled Potassium Cancelled Chloride Cancelled Carbon Dioxide Cancelled Anion Gap Cancelled BUN Cancelled Creatinine Cancelled Estim Creat Clear Calc Cancelled Est GFR (MDRD) Non-Af Cancelled BUN/Creatinine Ratio Cancelled Glucose Cancelled Calcium Cancelled Magnesium Cancelled Troponin T High Sens Cancelled TSH Cancelled 09/19/24 05:23 WBC Corrected WBC RBC Hgb Hct MCV MCH MCHC RDW Std Deviation RDW Coeff of Marco Antonio Plt Count MPV Immature Gran % (Auto) Neut % (Auto) Lymph % (Auto) [place] % (Auto) Eos % (Auto) Baso % (Auto) Absolute Neuts (auto) Absolute Lymphs (auto) Total Counted Neutrophils % (Manual) Band Neutrophils % Lymphocytes % (Manual) Monocytes % (Manual) Eosinophils % (Manual) Basophils % (Manual) Metamyelocytes % Myelocytes % Promyelocytes % Blast Cells % Plasma Cell % (Manual) Other Cells % Nucleated RBC % Nucleated RBCs/100 WBC Differential Comment Diff Path Review Hypersegmented Neuts Atypical Lymphocytes Reactive Lymphocytes Smudge Cells Toxic Granulation Toxic Vacuolation Dohle Bodies Gloria Rods Platelet Estimate Plt Morphology Comment RBC Morphology Polychromasia Hypochromasia Basophilic Stippling Anisocytosis Microcytosis Macrocytosis Spherocytes Sickle Cells Target Cells Tear Drop Cells Ovalocytes Stomatocytes [place] Bodies [place] Cells Bite Cells Crenated Cell Acanthocytes (Spur) Rouleaux Schistocytes Sodium 136 Potassium 4.1 Chloride 101 Carbon Dioxide 20.9 L Anion Gap 14 BUN 34 H Creatinine 1.16 Estim Creat Clear Calc 31.54 L Est GFR (MDRD) Non-Af 46 L BUN/Creatinine Ratio 29.4 H Glucose 124 H Calcium 9.6 Magnesium 2.5 H Troponin T High Sens 13 TSH 3.110 Radiography Diagnostic Testing: Clinical Impression(s) from Imaging Studies Chest X-Ray 09/19/24 04:40 IMPRESSION: No acute chest findings Reading Location: [place] [address] Chest x-ray as interpreted by the emergency medicine physician reveals no acute infiltrate pneumothorax or pleural effusion Discharge Plan Triage Chief Complaint: Chest Pain ED Provider: Chetan Nick Dx/Rx/DC Orders Clinical Impression: HTN (hypertension), Fibromyalgia, Nonspecific chest pain, Depression Instructions: Depression: Tips to Help Yourself, ED Chest Pain, Uncertain Cause Prescriptions: No Action isosorbide mononitrate 30 mg tablet extended release 24 hr 30 mg PO QDAY losartan 50 mg tablet 50 mg PO QDAY amlodipine 10 mg tablet 10 mg PO QDAY Qty: 30 11RF duloxetine 60 MG capsule 60 mg PO DAILY Patient Comments: ANTI-DEPRESSANT Omeprazole [Prilosec] 40 MG capsule 40 mg PO DAILY Patient Comments: ACID REFLUX gabapentin 300 mg capsule 300 mg PO TIDCM Patient Comments: NEUROPATHY metoprolol succinate 50 MG tablet 50 mg PO DAILY clopidogrel 75 mg tablet 75 mg PO DAILY aspirin 81 mg tablet,delayed release (DR/EC) 81 mg PO DAILY dorzolamide 2 % drops 1 drp ophthalmic (eye) TID rosuvastatin 20 mg tablet 20 mg PO QHS Primary Care Provider: Audrey Lang Referrals: Audrey Lang MD [Primary Care Provider] - Activity Restrictions/Additional Instructions: Your workup today reveals no sign of active cardiac damage. Please continue all of your home medications as directed by your doctor and follow-up with your family doctor as well as stationary engineer refrigeration for repeat evaluation. Return to the ER should you have any further concerns Print Language: Russian Disposition Disposition: Home, Self Care
[2024-09-19 07:54] LABS: Troponin T High Sens 2 HR 14 ng/L (<=14)
== END 2024-09-19 08:14 | disposition home or self-care (01) ==
PROVIDERS: Emergency Provider Emergency Medicine; PCP Internal Medicine; Visit Provider Emergency Medicine
DX: I10 Essential (primary) hypertension (principal); R07.9 Chest pain, unspecified; I25.10 Atherosclerotic heart disease of native coronary artery without angina pectoris; I25.2 Old myocardial infarction; F32.A Depression, unspecified; M79.7 Fibromyalgia; Z95.5 Presence of coronary angioplasty implant and graft; D72.829 Elevated white blood cell count, unspecified
CPT/HCPCS: 71045; 80048; 83735; 84443; 84484; 85025; 93005; 96374; 99284; A4216

== ENCOUNTER → 2024-09-28 | Outpatient (CLI) | payer MEDICARE, SELFPAY ==
--- NOTE | 2024-09-28 13:55 | ECHOD_ITS ---
Reason For Study Reason For Study: JAMIL Procedure This was a 2D Doppler, Color Flow transthoracic echocardiogram. Exam performed in department. Left Ventricle Normal LV size. Left ventricular systolic function is normal. The left ventricular ejection fraction is 70 %. Stage 1 diastolic dysfunction. No regional wall motion abnormalities noted. Right Ventricle Normal RV size. Normal systolic function. Atria Normal left atrium. Normal right atrium. Mitral Valve Normal mitral valve. Tricuspid Valve Normal tricuspid valve. Aortic Valve Normal aortic valve. Trivial eccentric aortic valve insufficiency. Pulmonic Valve Normal pulmonic valve. Great Vessels Mildly dilated aortic root. The pulmonary artery is normal size. Inferior vena cava collapse with respiration. Pericardium/Pleural No pericardial effusion. MMode/2D Measurements & Calculations LVIDd: 4.0 cm IVSd: 1.3 cm Ao root diam: 3.8 cm LVIDs: 2.4 cm LVPWd: 1.1 cm RVDd: 2.5 cm FS: 40.0 % LAV(MOD-bp): 30.9 ml LVAd ap4: 18.0 cm2 SV(MOD-sp4): 27.1 ml LAV(MOD-bp) Indexed: 19.3 ml/m2 LVLd ap4: 6.6 cm SI(MOD-sp4): 16.9 ml/m2 LAV(MOD-sp2): 30.5 ml EDV(MOD-sp4): 41.0 ml LAV(MOD-sp4): 31.1 ml EDV(sp4-el): 41.9 ml LVAs ap4: 8.9 cm2 LVLs ap4: 5.1 cm ESV(MOD-sp4): 13.9 ml ESV(sp4-el): 13.3 ml EF(MOD-sp4): 66.1 % EF(sp4-el): 68.4 % SV(sp4-el): 28.6 ml LA A4 area: 13.7 cm2 LA dimension(2D): 4.2 cm RA A4 area: 6.9 cm2 TAPSE: 2.2 cm Time Measurements MV dec time: 0.19 sec Doppler Measurements & Calculations MV E max shoaib: 95.9 cm/sec Lat Peak E' Shoaib: 10.7 cm/sec Med Peak E' Shoaib: 8.2 cm/sec MV A max shoaib: 112.0 cm/sec E/E' lat: 8.9 E/E' med: 11.6 MV E/A: 0.86 Ao V2 max: 241.0 cm/sec AI max shoaib: 449.3 cm/sec MV dec slope: 518.1 cm/sec2 Ao max P.3 mmHg AI max P.8 mmHg Ao V2 mean: 173.4 cm/sec Ao mean P.3 mmHg AI dec slope: 374.2 cm/sec2 Ao V2 VTI: 54.8 cm AI P1/2t: 351.7 msec AV (velocity ratio): 0.64 LV V1 max: 151.3 cm/sec PA V2 max: 80.2 cm/sec LV V1 max P.2 mmHg LV V1 mean P.0 mmHg LV V1 mean: 104.7 cm/sec LV V1 VTI: 35.1 cm ECHO/Echo Complete Interpretation Summary Normal LV size. Left ventricular systolic function is normal. The left ventricular ejection fraction is 70 %. Stage 1 diastolic dysfunction. Trivial eccentric aortic valve insufficiency. Ordering Physician: Joanne Apple Referring Physician: Audrey Lang Performed By: Faviola Reynolds, AFSHIN, RVT
== END | disposition home or self-care (01) ==
PROVIDERS: PCP Internal Medicine; Referring Provider Nurse Practitioner Gerontology; Visit Provider Nurse Practitioner Gerontology
DX: R06.09 Other forms of dyspnea (principal)
CPT/HCPCS: 93306

== ENCOUNTER → 2024-10-27 | Outpatient (CLI) | payer MEDICARE, SELFPAY ==
--- OUTSIDE RECORDS SUMMARY | 2024-10-27 06:50 | XMS RPT_ITS | CCD ---
Author Organization [facility] Care Team Providers Care Unishear Operator Name Role Phone Karen Resendiz MD Primary Care Provider ASTRID TERRAZAS, DR JONES Primary Care Physician Karen Resendiz MD Primary Care Provider Sahu BARTENDERS.HOUSE SHORER, Maddie Unavailable Eric BARTENDERS.WESTERN FELT HAT BLOCKER, Nelli Unavailable Kaushik RN, Korina Unavailable ASTRID TERRAZAS, DR JONES Primary Care Unavailable SATISH TERRAZAS, RODRIGO Admitting Unavailable SATISH TERRAZAS, RODRIGO Attending Unavailable SERVANDO KEANE MD Consulting Unavail able ASTRID TERRAZAS, DR JONES Primary Care Unavailable MALACHI TERRAZAS, DR NIETO Admitting Unavailab naveed LY MD, DR NIETO Attending Unavailab naveed ALMARAZ MD, TONIA Consulting Unavailable Kaushik RN, Korina Unavailable Eric BARTENDERS.WESTERN FELT HAT BLOCKER, Nelli Unavailable Sahu BARTENDERS.HOUSE SHORER, Maddie Unavailable Dr. Karen Resendiz MD Primary Care Provider Dr. Karen Resendiz MD Referring Provider Joanne Ferrari Attending Provider Joanne Ferrari Referring Provider Dr. Chetan Nick DO Emergency Provider [phone] KAREN RESENDIZ Primary Care Unavailable ALEXEI SKELTON Referring Unavailable KAREN RESENDIZ Primary Care Unavailable ALEXEI SKELTON Attending Unavailable KAREN RESENDIZ Primary Care Unavailable TALAMPAS, KAREN D Attending Unavailable TALAMPAS, KAREN D Primary Care Unavailable MADDIE SAHU Attending Unavailable TALAMPAS, KAREN D Primary Care Unavailable TALAMPAS, KAREN D Referring Unavailable TALAMPAS, KAREN D Primary Care Unavailable ERICNELLI Attending Unavailable TALAMPAS, KAREN D Primary Care Unavailable TALAMPAS, KAREN D Attending Unavailable TALAMPAS, KAREN D Primary Care Unavailable NELLI REYES Attending Unavailable TALAMPAS, KAREN D Primary Care Unavailable TALAMPAS, KAREN D Attending Unavailable TALAMPAS, KARNE D Primary Care Unavailable TALAMPAS, KAREN D Attending Unavailable Dr. Chetan Nick DO Attending Provider [phone] Dr. Valdemar Kimble MD Attending Provider [phone] Zechariah ROTOR CASTING MACHINE SETUP OPERATOR, Joanne Attending Unavailable Joanne Apple NP Referring Unavailable Talampas, Karen D Primary Care Unavailable Talampas, Karen D Primary Care Unavailable Mejia Shah Attending Unavailable Talampas, Karen D Primary Care Unavailable Zechariah MARIA, Joanne Referring Unavailable Zechariah MARIA, Joanne Attending Unavailable Belal, Farouk Admitting Unavailable Belal, Farouk Attending Unavailable Talampas, Karen D Primary Care Unavailable Talampas, Karen D Primary Care Unavailable Zechariah MARIA, Joanne Attending Unavailable Zechariah ROTOR CASTING MACHINE SETUP OPERATOR, Joanne Referring Unavailable Belal, Farouk Admitting Unavailable Belal, Farouk Consulting Unavailable Belal, Farouk Attending Unavailable Talampas, Karen D Primary Care Unavailable Vazquez Woodard Attending Unavailable Talampas, Karen D Primary Care Unavailable Zechariah MARIA, Joanne Attending Unavailable Talampas, Karen D Referring Unavailable Talampas, Karen D Primary Care Unavailable Kenny Good Attending Unavailable Talampas, Karen D Referring Unavailable Talampas, Karen D Primary Care Unavailable Joel Reynolds NP Attending Unavailable Talampas, Karen D Referring Unavailable Tessie Joyce Attending Unavail able Talampas, Karen D Primary Care Unavailable Talampas, Karen D Referring Unavailable Valdemar Kimble Attending Unavailable Talampas, Karen D Primary Care Unavailable Zechariah MARIA, Joanne Attending Unavailable Talampas, Karen D Primary Care Unavailable Talampas, Karen D Primary Care Unavailable Chetan Nick Attending Unavailable Allergies Allergy Classification Reported Allergen(s) Allergy Type Date of Onset Reaction(s) Facility (20 sources) Amitriptyline; Translations: [AMITRIPTYLINE] Drug Allergy 3 Other: See Comments [facility] Work Phone: (20 sources) Codeine; Translations: [CODEINE] Drug Allergy 5 Chest tightness [facility] Work Phone: (20 sources) Sulfonamides (Antibiotic); Translations: [SULFA (SULFONAMIDE ANTIBIOTICS)] Drug Allergy 6 Hives, Swelling, Itching [facility] Work Phone: (20 sources) traZODone; Translations: [TRAZODONE] Drug Allergy 5 Other [facility] Work Phone: Comment on above: HALLUCINATIONS (2 sources) Sulfonamide; Translations: [sulfa drugs] Drug allergy Pt [facility] (1 source) Amitriptyline Drug Allergy 5 [facility] Repository (1 source) Codeine Drug Allergy 5 [facility] Rep[facility] (1 source) traZODone Drug Allergy 5 [facility] Repository Medications Current Medications Medication Drug Class(es) Dates Sig (Normalized) Sig (Original) [id number] actuat albuterol 0.09 mg/actuat metered dose inhaler (3 sources) beta2-Adrenergic Agonist Start: 06-30-2024 take 2 puff(s) by inhalation every four hours as needed for wheezing albuterol HFA (PROVENTIL HFA, VENTOLIN HFA) 90 mcg/actuation inhaler Inhale 2 puffs as instructed every 4 hours as needed for wheezing/shortne ss of breath. 1 each 06/30/2024 Active amLODIPine 10 mg oral tablet (20 sources) Dihydropyridine Calcium Channel Janay Start: 02-20-2024 End: 05-11-2024 take 1 tablet [...] aspirin 81 mg delayed release oral tablet (16 sources) Platelet Aggregation Inhibitor, Nonsteroidal Anti-inflammatory Drug Start: 01-20-2024 End: 07-13-2025 take 1 tablet by mouth once daily Aspirin 81 mg tablet,delayed release (DR/EC) Active 81 mg PO DAILY January 24, 2024 1:00am clopidogrel 75 mg oral tablet (17 sources) P2Y12 Platelet Inhibitor Start: 01-20-2024 End: 04-14-2025 take 1 tablet by mouth once daily Clopidogrel 75 mg tablet Active 75 mg PO DAILY January 24, 2024 1:00am COMPOUNDED PRESCRIPTION (20 sources) Start: 03-31-2013 COMPOUNDED PRESCRIPTION Indications: Myalgia and myositis, unspecified , Generalized osteoarthrosis, unspecified site Massage therapy Dx: Fibromyalgia, Arthritis 1 Each 03/31/2013 Active Comment on above: Massage therapy [...] 11/07/2023 Active dorzolamide 20 mg/ml ophthalmic solution (8 sources) Carbonic Anhydrase Inhibitor Start: 01-24-2024 Dorzolamide [...] take 1 capsule by mouth once daily Duloxetine 60 MG capsule Active 60 mg PO DAILY August 23, 2013 12:00am Comment on above: Take 1 capsule by [facility] once daily. estradiol 0.1 mg/ml vaginal cream [...] mononitrate 30 mg extended release oral tablet (16 sources) Nitrate Vasodilator Start: End: take 1 tablet by mouth once daily, then take 1 tablet by mouth every twenty-four hours Isosorbide Mononitrate 30 mg tablet extended release 24 hr Active 30 mg PO daily February 20, 2024 1:00am losartan potassium 50 mg oral tablet (20 sources) Angiotensin 2 Receptor Janay Start: take 1 tablet by mouth once daily [...] 2024 11:58am mirtazapine 15 mg oral tablet (2 sources) Start: 09-08-2024 take 1 tablet by mouth once daily at bedtime mirtazapine (REMERON) 15 mg tablet Indications: Grief reaction , Recurrent major depressive disorder, in partial remission , Adjustment insomnia Take 1 tablet by mouth daily at bedtime. 90 tablet 1 09/08/2024 Active Miscellaneous Medical Supply (20 sources) Start: 11-02-2022 Miscellaneous Medical Supply Danny probiotics--Yeast and Vaginal PH support probiotic. Probiotic blend. Takes 1 by mouth at bedtime 11/02/2022 Active Start: 11-02-2022 Miscellaneous Medical Supply [employer] probiotics--Yeast and Vaginal PH support probiotic. Probiotic blend. Takes 1 by mouth at bedtime 0 11/02/2022 Active Comment on above: [facility] probiotics-- Yeast and Vaginal PH support probiotic. [...] Comment on above: Take 1 capsule by [facility] once daily. rosuvastatin calcium 20 mg oral tablet (17 sources) HMG-CoA Reductase Inhibitor Start: 4 End: 6 take 1 tablet by mouth at bedtime Rosuvastatin 20 mg tablet Active 20 mg PO AT BEDTIME January 24, 2024 1:00am zaleplon 5 mg oral capsule (2 sources) gamma-Aminobutyric Acid A Receptor Agonist Start: 4 End: 4 take 1 capsule by mouth [...] on above: Take 1 capsule by [facility] once daily. clobetasol propionate 0.0005 mg/mg topical ointment (19 sources) Corticosteroid Start: End: clobetasol (TEMOVATE) 0.05 % ointment Actually gets compounded RX 0.07% through [facility] from [employer] to use twice weekly 11/02/2022 03/12/2024 Discontinued Comment on above: Actually gets compou nded RX 0.07% through [facility] from [employer] to use twice weekly clonazePAM 1 mg oral tablet (12 sources) Benzodiazepine Start: 014 End: take 1 tablet by mouth at bedtime Clonazepam (Klonopin) 1 MG tablet Discontinued 1 mg PO AT BEDTIME August 23, 2013 12:00am January 17, 2024 8:59pm Comment on above: [facility] at [facility] for 180 days. Do not start before June 19, 2020. colestipol hydrochloride 1000 mg oral tablet (8 sources) Bile Acid Sequestrant Start: 022 End: take 1 tablet by mouth once [...] oral tablet (2 sources) Azole Antifungal Start: End: 5 take 1 tablet by mouth once fluconazole (DIFLUCAN) 150 mg tablet Indications: Acute non-recurrent sinusitis, unspecified location Take 1 tablet by mouth one time only for 1 dose. 1 tablet 03/12/2024 03/12/2024 Inhalational Spacing Device (1 source) Start: 5 End: Inhalational Spacing Device 1 device one time only for 1 dose. 1 each 06/30/2024 06/30/2024 Lactobacillus acidophilus (18 sources) End: 4 LACTOBACILLUS ACIDOPHILUS (PROBIOTIC ORAL) Take by mouth. 11/07/2023 Discontinued LACTOBACILLUS AC IDOPHILUS (PROBIOTIC ORAL) Take by mouth. 0 Active Comment on above: Take by mouth. lisinopril 2.5 mg oral tablet (4 sources) Angiotensin Converting Enzyme Inhibitor Start: 4 End: 4 take 0.5 mg by mouth once daily Lisinopril (Zestril) 2.5 MG tablet Discontinued 0.5 mg PO DAILY August 23, 2013 12:00am August 24, 2013 2:08pm Loperamide (18 sources) Opioid Agonist End: loperamide HCl (IMODIUM A-D ORAL) Take by [...] Comment on above: Take 1 tablet by [facility] once daily. nystatin [id number] unt/ml topical cream (20 sources) Polyene Antifungal [...] mg by mouth twice daily. triamcinolone acetonide 0.66380 mg/mg topical ointment (20 sources) Corticosteroid Start: [...] Onset: 5 06-30-2024 Episodic Acute myocardial infarction (6 sources) Non-ST elevation (NSTEMI) myocardial infarction; Translations: [Myocardial infarction] Onset: 5 Chronic Adjustment disorders (2 sources) Grief finding; [...] Coronary atherosclerosis; Translations: [Atherosclerotic heart disease of [place] coronary artery without angina pectoris] Onset: 4 Chronic Coronary atherosclerosis and other heart disease (1 source) Presence of coronary angioplasty implant and graft; Translations: [Presence of coronary angioplasty implant and graft] Onset: 5 Episodic Diabetes mellitus without complication (2 sources) Impaired [...] Onset: 6 07-13-2015 Chronic Heart valve disorders (8 sources) Aortic valve regurgitation; Translations: [Nonrheumatic aortic (valve) insufficiency] 02-20-2024 Chronic Hypertension with complications and secondary hypertension (5 sources) Hypertensive emergency; Translations: [Hypertensive emergency] Onset: 4 01-18-2024 Chronic Immunizations and screening for infectious disease (3 sources) Needs influenza immunization; Translations: [Encounter for immunization] 11-02-2022 Episodic Inflammatory diseases of female pelvic organs (1 source) Chronic vaginitis; Translations: [Subacute and chronic vaginitis] Episodic Malaise and fatigue (7 sources) Fatigue; Translations: [Other fatigue] Onset: 5 09-09-2024 Episodic Menopausal disorders (1 source) Atrophy of vagina; Translations: [Postmenopausal atrophic vaginitis] 11-02-2022 Chronic Miscellaneous mental health disorders (1 source) Psychophysiologic insomnia; Translations: [Psychophysiological insomnia] Onset: 5 Chronic Mood disorders (20 sources) Recurrent major depression in partial remission; Translations: [Major depressive disorder, recurrent, in partial remission] Onset: 8 Chronic Nonspecific chest pain (10 sources) Cardiac chest pain; Translations: [Chest pain] Onset: 5 01-18-2024 Episodic Nutritional deficiencies (20 sources) Vitamin D deficiency; Translations: [Vitamin D deficiency, unspecified] Onset: 7 07-16-2016 Chronic Osteoarthritis (20 sources) Degenerative joint disease involving multiple joints; Translations: [Polyosteoarthritis, unspecified] 12-13-2014 Chronic Other aftercare (1 source) Patient encounter status; Translations: [Other dedicated intermodal truck driver (current) drug therapy] 05-07-2023 Episodic Other aftercare (1 source) Long-term current use of drug therapy; Translations: [Other dedicated intermodal truck driver (current) drug therapy] 05-11-2024 Episodic Other aftercare (1 source) Long-term current use of anticoagulant; Translations: [bed bug exterminator (current) use of anticoagulants] 05-11-2024 Episodic Other bone disease and musculoskeletal deformities (20 sources) Osteopenia; Translations: [Other specified disorders of bone density and structure, unspecified site] 03-18-2017 Episodic Other circulatory disease (11 sources) History of angioplasty; Translations: [Peripheral vascular angioplasty status with implants and grafts] Onset: 5 01-27-2024 Chronic Other circulatory disease (1 source) Peripheral vascular angioplasty status with implants and grafts; Translations: [S/P angioplasty with stent] Onset: Chronic Other circulatory disease (4 sources) H/O: heart disorder; Translations: [Personal history [...] injuries and conditions due to external causes (4 sources) Closed injury of head; Translations: [Unspecified injury of head, initial encounter] 05-31-2020 Episodic Other lower respiratory disease (3 sources) Cough; Translations: [Acute cough] 03-12-2024 Episodic Other lower respiratory disease (1 source) Wheezing; Translations: [Wheezing] 06-30-2024 Episodic Other lower respiratory disease (7 sources) Dyspnea on exertion; Translations: [Other forms [...] conditions (not mental disorders or infectious disease) (6 sources) Electrocardiogram abnormal; Translations: [Abnormal electrocardiogram [ECG] [EKG]] Onset: 5 01-18-2024 Episodic Other skin disorders (20 sources) Lichen sclerosus et atrophicus; 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 Other upper respiratory infections (1 source) Acute sinusitis; Translations: [Acute sinusitis, unspecified] 03-12-2024 Episodic Residual codes; unclassified (1 source) Insomnia; Translations: [Other insomnia] 11-07-2023 Chronic Residual codes; unclassified (1 source) Bilateral lower limb edema; Translations: [Localized edema] 05-11-2024 Episodic Residual codes; unclassified (1 source) Localized edema; Translations: [Bilateral leg edema] Onset: Episodic Superficial injury; contusion (8 sources) Contusion of eyeball and orbital tissues, left eye, initial encounter; Translations: [Periorbital contusion of left eye] 05-31-2020 Episodic Unclassified (1 source) Acute cough; Translations: [Acute cough] Onset: Past or Other Problems Problem Classification Problem Date Documented Da te Episodic/Chronic Miscellaneous mental health disorders (2 sources) Acute insomnia; Translations: [Adjustment insomnia] Onset: 10-16-2004 09-08-2024 Episodic Other aftercare (1 source) Other chcf (current) drug therapy; Translations: [Encounter for long-term current use of medication] Onset: 11-07-2023 Episodic Other connective tissue disease (1 source) Fibromyalgia; Translations: [Fibromyalgia] Onset: 04-14-2015 Episodic Residual codes; unclassified (20 sources) Insomnia; Translations: [Insomnia, unspecified] Onset: 10-16-2004 10-16-2004 Episodic Results Test Name Value Interpretation Reference Range Facility Echo Completeon 09-28-2024 Echo Complete [facility] [address] [place] [address] Echo Complete 09/28/24 1356 MR#: [id number] Acct: [id number] Name: KALINA RUDD Rep #: [id number] : 1940 84 From: Valdemar Kimble MD Attending Dr: Joanne Apple NP-C Status: EMELIA PITTS Ordering Dr: Joanne Apple NP ROTOR CASTING MACHINE SETUP OPERATOR-C Date: 09/28/24 Location: [facility] Sex: F C Admitted: Reason For Study Reason For Study: JAMIL Procedure This was a 2D Doppler, Color Flow transthoracic echocardiogram. Exam performed in department. Left Ventricle Normal LV size. Left ventricular systolic function is normal. The left ventricular ejection fraction is 70 %. Stage 1 diastolic dysfunction. No regional wall motion abnormalities noted. Right Ventricle Normal RV size. Normal systolic function. Atria Normal left atrium. Normal right atrium. Mitral Valve Normal mitral valve. Tricuspid Valve Normal tricuspid valve. Aortic Valve Normal aortic valve. Trivial eccentric aortic valve insufficiency. Pulmonic Valve Normal pulmonic valve. Great Vessels Mildly dilated aortic root. The pulmonary artery is normal size. Inferior vena cava collapse with respiration. Pericardium/Pleural No pericardial effusion. MMode/2D Measurements Calculations LVIDd: 4.0 cm IVSd: 1.3 cm Ao root diam: 3.8 cm LVIDs: 2.4 cm LVPWd: 1.1 cm RVDd: 2.5 cm FS: 40.0 % LAV(MOD-bp): 30.9 ml LVAd ap4: 18.0 cm2 SV(MOD-sp4): 27.1 ml LAV(MOD-bp) Indexed: 19.3 ml/m2 LVLd ap4: 6.6 cm SI(MOD-sp4): 16.9 ml/m2 LAV(MOD-sp2): 30.5 ml EDV(MOD-sp4): 41.0 ml LAV(MOD-sp4): 31.1 ml EDV(sp4-el): 41.9 ml LVAs ap4: 8.9 cm2 LVLs ap4: 5.1 cm ESV(MOD-sp4): 13.9 ml ESV(sp4-el): 13.3 ml EF(MOD-sp4): 66.1 % EF(sp4-el): 68.4 % SV(sp4-el): 28.6 ml LA A4 area: 13.7 cm2 LA dimension(2D): 4.2 cm RA A4 area: 6.9 cm2 TAPSE: 2.2 cm Time Measurements MV dec time: 0.19 sec Doppler Measurements Calculations MV E max alyce: 95.9 cm/sec Lat Peak E' Alyce: 10.7 cm/sec Med Peak E' Alyce: 8.2 cm/sec MV A max alyce: 112.0 cm/sec E/E' lat: 8.9 E/E' med: 11.6 MV E/A: 0.86 Ao V2 max: 241.0 cm/sec AI max alyce: 449.3 cm/sec MV dec slope: 518.1 cm/sec2 Ao max P.3 mmHg AI max P.8 mmHg Ao V2 mean: 173.4 cm/sec Ao mean P.3 mmHg AI dec slope: 374.2 cm/sec2 Ao V2 VTI: 54.8 cm AI P1/2t: 351.7 msec AV (velocity ratio): 0.64 LV V1 max: 151.3 cm/sec PA V2 max: 80.2 cm/sec LV V1 max P.2 mmHg LV V1 mean P.0 mmHg LV V1 mean: 104.7 cm/sec LV V1 VTI: 35.1 cm ECHO/Echo Complete Interpretation Summary Normal LV size. Left ventricular systolic function is normal. The left ventricular ejection fraction is 70 %. Stage 1 diastolic dysfunction. Trivial eccentric aortic valve insufficiency. Ordering Physician: Joanne Apple Referring Physician: Karen Resendiz Performed By: Faviola Reynolds, RDCS, RVT 09/28/24 1649 Date Valdemar Kimble MD CC: ROTOR CASTING MACHINE SETUP OPERATOR-C Joanne Apple; Dr. Karen Resendiz MD Date Dictated: 09/28/24 135 Date Transcribed: 09/28/241648 Payroll Professional: Signed Normal [facility] Echocardiogram study reportO rdered By: Valdemar Kimble on 09-28-2024 Study report [facility] [address] [place] [address] Echo Complete 09/28/241355 MR#: [id number] Acct: [id number] Name: KALINA RUDD Rep #:[id number] : 1940 84 From: Valdemar Gutierrez Attending Dr: Joanne Apple, ROTOR CASTING MACHINE SETUP OPERATOR-C S tatus: REG CLI Ordering Dr: Joanne Apple NP, NP-C Grover e: 09/28/24 Location: [facility] Sex: F C Admitted: Reason For Study Reason For Study: JAMIL Procedure This was a 2D Doppler, Color Flow transthoracic echocardiogram. Exam performed in department. Left Ventricle Normal LV size. Left ventricular systolic function is normal. The left ventricular ejection fraction is 70 %. Stage 1 diastolic dysfunction. No regional wall motion abnormalities noted. Right Ventricle Normal RV size. Normal systolic function. Atria Normal left atrium. Normal right atrium. Mitral Valve Normal mitral valve. Tricuspid Valve Normal tricuspid valve. Aortic Valve Normal aortic valve. Trivial eccentric aortic valve insufficiency. Pulmonic Valve Normal pulmonic valve. Great Vessels Mildly dilated aortic root. The pulmonary artery is normal size. Inferior vena cava collapse with respiration. Pericardium/Pleural No pericardial effusion. MMode/2D Measurements & Calculations LVIDd: 4.0 cm IVSd: 1.3 cm Ao root diam: 3.8 cm LVIDs: 2.4 cm LVPWd: 1.1 cm RVDd: 2.5 cm FS: 40.0 % __ LAV(MOD-bp): 30.9 ml LVAd ap4: 18.0 cm2 SV(MOD-sp4): 27.1 ml LAV(MOD-bp) Indexed: 19.3 ml/m2 LVLd ap4: 6.6 cm SI(MOD-sp4): 16.9 ml/m2 LAV(MOD-sp2): 30.5 ml EDV(MOD-sp4): 41.0 ml LAV(MOD-sp4): 31.1 ml EDV(sp4-el): 41.9 ml LVAs ap4: 8.9 cm2 LVLs ap4: 5.1 cm ESV(MOD-sp4): 13.9 ml ESV(sp4-el): 13.3 ml EF(MOD-sp4): 66.1 % EF(sp4-el): 68.4 % __ SV(sp4-el): 28.6 ml LA A4 area: 13.7 cm2 LA dimension(2D): 4.2 cm __ RA A4 area: 6.9 cm2 TAPSE: 2.2 cm Time Measurements MV dec time: 0.19 sec Doppler Measurements & Calculations MV E max alyce: 95.9 cm/sec Lat Peak E' Alyce: 10.7 cm/sec Med Peak E' Alyce: 8.2 cm/sec MV A max alyce: 112.0 cm/sec E/E' lat: 8.9 E/E' med: 11.6 MV E/A: 0.86 Ao V2 max: 241.0 cm/sec AI max alyce: 449.3 cm/sec MV dec slope: 518.1 cm/sec2 Ao max P.3 mmHg AI max P.8 mmHg Ao V2 mean: 173.4 cm/sec Ao mean P.3 mmHg AI dec slope: 374.2 cm/sec2 Ao V2 VTI: 54.8 cm AI P1/2t: 351.7 msec AV (velocity ratio): 0.64 __ LV V1 max: 151.3 cm/sec PA V2 max: 80.2 cm/sec LV V1 max P.2 mmHg LV V1 mean P.0 mmHg LV V1 mean: 104.7 cm/sec LV V1 VTI: 35.1 cm ECHO/Echo Complete Interpretation Summary Normal LV size. Left ventricular systolic function is normal. The left ventricular ejection fraction is 70 %. Stage 1 diastolic dysfunction. Trivial eccentric aortic valve insufficiency. Ordering Physician: Joanne Apple Referring Physician: Karen Resendiz Performed By: Faviola Reynolds, AFSHIN, RVT 09/28/24 1649 Date _ Valdemar Kimble MD CC: ROTOR CASTING MACHINE SETUP OPERATOR-C Joanne Apple; Dr. Karen Resendiz MD ~ Date Dictated: 09/28/24 1356 Date Transcribed: 09/28/241648 Payroll Professional: Signed [facility] Work Phone: 12 Lead EKGon 09-19-2024 12 Lead EKG [facility] Cardiovascular Services [address] [place] [address] 12 Lead EKG 09/19/24 0432 MR#: [id number] Acct: [id number] Name: KALINA RUDD Rep #: [id number] : 1940 84 From: Valdemar Kimble MD Attending Dr: Status: DEP ER Ordering Dr: Chetan Nick DO Date: 09/19/24 Location: ED Sex: F C Admitted: Test Reason : DYSRHYTHMIA Blood Pressure : */* mmHG Vent. Rate : 82 BPM Atrial Rate : 82 BPM P-R Int : 140 ms QRS Dur : 92 ms QT Int : 382 ms P-R-T Axes : 39 -23 41 degrees QTcB Int : 446 ms Normal sinus rhythm Normal ECG Confirmed by CODY TERRAZAS, VALDEMAR ([id number]), film and video editor YASMIN VO ([id number]) on 09/20/2024 1:14:54 PM Referred By: Confirmed By: VALDEMAR KIMBLE MD 09/20/24 1314 Date Valdemar Kimble MD CC: Dr. Karen Resendiz MD; Chetan Nick DO Signed Normal [facility] Absolute lymphocyte countOrd ered By: Chetan Nick on 09-19-2024 Lymphocytes Auto (Unsp spec) [#/Vol] 2.17 10*3/uL 0.83-4.51 [facility] Absolute neutrophil countOrd ered By: Chetan Nick on 09-19-2024 Neutrophils (Bld) [#/Vol] 6.0 10*3/uL 2.0-7.7 [facility] Anion gap in Serum or Plasma Ordered By: Chetan Nick on 09-19-2024 Anion gap [Moles/Vol] 14 mmol/L 5-15 [facility] Automated lymphocyte count a s percentage of total leukocytesOrdered By: Chetan Nick on 09-19-2024 Lymphocytes/100 WBC Auto (Unsp spec) 23.6 % 19-41 [facility] BUN/creatinine ratioOrdered By: Chetan Nick on 09-19-2024 Urea nitrogen/Creatinine [Mass ratio] 29.4 mg/mg High [facility] Basic Metabolic Profile (BMP )on 09-19-2024 BUN/CRE 29.4 RATIO High [facility] Rehabilitation Comment on above: Order Comment: ANDRY Thornton PREVIOUS SPECIMEN REJECTED DUE TO HEMOLYSIS. 09/19/24 0513 Alfredo Tenorio. Performed By: #### L 501.5207, L501.9569, L500.2500, L501.4021 #### [facility] [address] [place], [address] Calcium [Mass/Vol] 9.6 mg/dL Normal 7.6-11.0 [facility] Comment on above: Order Comment: REDRA W. PREVIOUS SPECIMEN REJECTED DUE TO HEMOLYSIS. 09/19/24512 Alfredo Bartholomew White. Performed By: #### L 501.5200, L501.9520, L500.2500, L501.4021 #### [facility] [address] [place], [address] Chloride [Moles/Vol] 101 mmol/L Normal 98-108 [facility] Comment on above: Order Comment: REDRA W. PREVIOUS SPECIMEN REJECTED DUE TO HEMOLYSIS. 09/19/24512 Alfredo Bartholomew White. Performed By: #### L 501.5200, L501.9520, L500.2500, L501.4021 #### [facility] [address] [place], [address] CO2 [Moles/Vol] 20.9 mmol/L Low 21.0-32.0 [facility] Comment on above: Order Comment: REDRA W. PREVIOUS SPECIMEN REJECTED DUE TO HEMOLYSIS. 09/19/24512 Alfredo Bartholomew White. Performed By: #### L 501.5200, L501.9520, L500.2500, L501.4021 #### [facility] [address] [place], [address] Creatinine [Mass/Vol] 1.16 mg/dL Normal 0.70-1.20 [facility] Comment on above: Order Comment: REDRA W. PREVIOUS SPECIMEN REJECTED DUE TO HEMOLYSIS. 09/19/24512 Alfredo Bartholomew White. Performed By: #### L 501.5200, L501.9520, L500.2500, L501.4021 #### [facility] [address] [place], [address] ECRCL 31.54 ml/min Low 50-250 [facility] Comment on above: Order Comment: REDRA W. PREVIOUS SPECIMEN REJECTED DUE TO HEMOLYSIS. 09/19/24512 Alfredo Bartholomew White. Performed By: #### L 501.5200, L501.9520, L500.2500, L501.4021 #### [facility] [address] [place], [address] GAP 14 Normal 5-15 [facility] Comment on above: Order Comment: REDRA W. PREVIOUS SPECIMEN REJECTED DUE TO HEMOLYSIS. 09/19/24512 Alfredo Tenorio. Performed By: #### L 501.5200, L501.9520, L500.2500, L501.4021 #### [facility] [address] [place], [address] GFR/1.73 sq M.predicted among non-blacks MDRD (S/P/Bld) [Vol rate/Area] 46 mL/min/{1.73_m2} Low >60 [facility] Comment on above: Order Comment: REDRA W. PREVIOUS SPECIMEN REJECTED DUE TO HEMOLYSIS. 09/19/24512 Alfredo Tenorio. Result Comment: mL/m in/1.73m2 CKD-EPI Creatinine Equation (2020) Performed By: #### L 501.5200, L501.9520, L500.2500, L501.4021 #### [facility] [address] [place], [address] Glucose [Mass/Vol] 124 mg/dL High 70-99 [facility] Comment on above: Order Comment: REDRA W. PREVIOUS SPECIMEN REJECTED DUE TO HEMOLYSIS. 09/19/24512 Alfredo Tenorio. Performed By: #### L 501.5200, L501.9520, L500.2500, L501.4021 #### [facility] [address] [place], [address] Potassium [Moles/Vol] 4.1 mmol/L Normal 3.3-5.1 [facility] Comment on above: Order Comment: REDRA W. PREVIOUS SPECIMEN REJECTED DUE TO HEMOLYSIS. 09/19/24512 Alfredo Tenorio. Performed By: #### L 501.5200, L501.9520, L500.2500, L501.4021 #### [facility] [address] [place], [address] Sodium [Moles/Vol] 136 mmol/L Normal 133-145 [facility] Comment on above: Order Comment: REDRA W. PREVIOUS SPECIMEN REJECTED DUE TO HEMOLYSIS. 09/19/24512 Alfredo Tenorio. Performed By: #### L 501.5200, L501.9520, L500.2500, L501.4021 #### [facility] [address] [place], [address] Urea nitrogen [Mass/Vol] 34 mg/dL High - [facility] Comment on above: Order Comment: REDRA W. PREVIOUS SPECIMEN REJECTED DUE TO HEMOLYSIS. 09/19/24512 Alfredo Tenorio. Performed By: #### L 501.5200, L501.9520, L500.2500, L501.4021 #### [facility] [address] [place], [address] BUN Normal 05-29 [facility] Comment on above: Result Comment: This specimen has been REJECTED due to Laboratory criteria: Hemolyzed. HECTOR (ED) has been notified of need of recollection. 09/19/24511 Alfredo Tenorio Performed By: #### L 501.9520, L500.2500, L503.7505, L100.0100 #### [facility] [address] [place], [address] BUN/CRE Normal 11-29 [facility] Comment on above: Result Comment: This specimen has been REJECTED due to Laboratory criteria: Hemolyzed. HECTOR (ED) has been notified of need of recollection. 09/19/24511 Alfredo Bartholomew White Performed By: #### L 501.9520, L500.2500, L503.7505, L100.0100 #### [facility] [address] [place], [address] Calcium Normal 7.6-11.0 [facility] Comment on above: Result Comment: This specimen has been REJECTED due to Laboratory criteria: Hemolyzed. HECTOR (ED) has been notified of need of recollection. 09/19/24511 Alfredo L White Performed By: #### L 501.9520, L500.2500, L503.7505, L100.0100 #### [facility] [address] [place], [address] CL Normal 98-108 [facility] Comment on above: Result Comment: This specimen has been REJECTED due to Laboratory criteria: Hemolyzed. HECTOR (ED) has been notified of need of recollection. 09/19/24511 Alfredo L White Performed By: #### L 501.9520, L500.2500, L503.7505, L100.0100 #### [facility] [address] [place], [address] CO2 Normal 21.0-32.0 [facility] Comment on above: Result Comment: This specimen has been REJECTED due to Laboratory criteria: Hemolyzed. HECTOR (ED) has been notified of need of recollection. 09/19/24511 Alfredo L White Performed By: #### L 501.9520, L500.2500, L503.7505, L100.0100 #### [facility] [address] [place], [address] CREAT,SERUM Normal 0.70-1.20 [facility] Comment on above: Result Comment: This specimen has been REJECTED due to Laboratory criteria: Hemolyzed. HECTOR (ED) has been notified of need of recollection. 09/19/24511 Alfredo L White Performed By: #### L 501.9520, L500.2500, L503.7505, L100.0100 #### [facility] [address] [place], [address] eGFR Normal >60 [facility] Comment on above: Result Comment: This specimen has been REJECTED due to Laboratory criteria: Hemolyzed. HECTOR (ED) has been notified of need of recollection. 09/19/24511 Alfredo L White Performed By: #### L 501.9520, L500.2500, L503.7505, L100.0100 #### [facility] [address] [place], [address] GAP Normal 5-15 [facility] Comment on above: Result Comment: This specimen has been REJECTED due to Laboratory criteria: Hemolyzed. HECTOR (ED) has been notified of need of recollection. 09/19/24511 Alfredo L White Performed By: #### L 501.9520, L500.2500, L503.7505, L100.0100 #### [facility] [address] [place], [address] GLU Normal 70-99 [facility] Comment on above: Result Comment: This specimen has been REJECTED due to Laboratory criteria: Hemolyzed. EHCTOR (ED) has been notified of need of recollection. 09/19/24511 Alfredo L White Performed By: #### L 501.9520, L500.2500, L503.7505, L100.0100 #### [facility] [address] [place], [address] Potassium Normal 3.3-5.1 [facility] Comment on above: Result Comment: This specimen has been REJECTED due to Laboratory criteria: Hemolyzed. HECTOR (ED) has been notified of need of recollection. 09/19/24511 Alfredo L White Performed By: #### L 501.9520, L500.2500, L503.7505, L100.0100 #### [facility] [address] [place], [address] Basic Metabolic Profile (BMP) Normal 133-145 [facility] Comment on above: Result Comment: This specimen has been REJECTED due to Laboratory criteria: Hemolyzed. HECTOR (ED) has been notified of need of recollection. 09/19/24511 Alfredo L White Performed By: #### L 501.9520, L500.2500, L503.7505, L100.0100 #### [facility] [address] [place], [address] Basophil percentageOrdered B y: Chetan Nick on 09-19-2024 Basophils/100 WBC (Bld) 0.4 % 0-1 [facility] CBC W/Diff, Automatedon 09-10-2024 Absolute Lymph 2.17 X10 3/uL Normal 0.83-4.51 [facility] Comment on above: Performed By: #### L 501.9520, L500.2500, L503.7505, L100.0100 #### [facility] [address] [place], [address] Absolute Neut 6.0 X10 3/uL Normal 2.0-7.7 [facility] Comment on above: Performed By: #### L 501.9520, L500.2500, L503.7505, L100.0100 #### [facility] [address] [place], [address] Basophils/100 WBC (Bld) 0.4 % Normal 0-1 [facility] Comment on above: Performed By: #### L 501.9520, L500.2500, L503.7505, L100.0100 #### [facility] [address] [place], [address] Eosinophils/100 WBC (Bld) 2.4 % Normal 0-5 [facility] Comment on above: Performed By: #### L 501.9520, L500.2500, L503.7505, L100.0100 #### [facility] [address] [place], [address] Erythrocyte distribution width (RBC) [Ratio] 13.8 % Normal 11.6-14.6 [facility] Comment on above: Performed By: #### L 501.9520, L500.2500, L503.7505, L100.0100 #### [facility] [address] [place], [address] Hematocrit (Bld) [Volume fraction] 34.9 % Low 37-47 [facility] Comment on above: Performed By: #### L 501.9520, L500.2500, L503.7505, L100.0100 #### [facility] [address] [place], [address] Hemoglobin (Bld) [Mass/Vol] 11.4 g/dL Low 12.0-15.0 [facility] Comment on above: Performed By: #### L 501.9520, L500.2500, L503.7505, L100.0100 #### [facility] [address] [place], [address] IG% 0.400 Normal 0.0-0.9 [facility] Comment on above: Result Comment: IG% - Immature Granulocytes (promyelocytes, myelocytes and metamyelocytes) > 1% indicates that a LEFT SHIFT is Present. Performed By: #### L 501.9520, L500.2500, L503.7505, L100.0100 #### [facility] [address] [place], [address] Lymphocytes/100 WBC (Bld) 23.6 % Normal 19-41 [facility] Comment on above: Performed By: #### L 501.9520, L500.2500, L503.7505, L100.0100 #### [facility] [address] [place], [address] MCH (RBC) [Entitic mass] 29.7 pg Normal 27.0-32.0 [facility] Comment on above: Performed By: #### L 501.9520, L500.2500, L503.7505, L100.0100 #### [facility] [address] [place], [address] MCHC (RBC) [Mass/Vol] 32.7 g/dL Normal 32-36 [facility] Comment on above: Performed By: #### L 501.9520, L500.2500, L503.7505, L100.0100 #### [facility] [address] [place], [address] MCV (RBC) [Entitic vol] 90.9 fL Normal 81-99 [facility] Comment on above: Performed By: #### L 501.9520, L500.2500, L503.7505, L100.0100 #### [facility] [address] [place], [address] Monocytes/100 WBC (Bld) 7.5 % Normal 0-10 [facility] Comment on above: Performed By: #### L 501.9520, L500.2500, L503.7505, L100.0100 #### [facility] [address] [place], [address] Neutrophils/100 WBC (Bld) 65.7 % Normal 47-70 [facility] Comment on above: Performed By: #### L 501.9520, L500.2500, L503.7505, L100.0100 #### [facility] [address] [place], [address] Nucleated RBC (Bld) [#/Vol] 0 10*3/uL Normal 0-5 [facility] Comment on above: Performed By: #### L 501.9520, L500.2500, L503.7505, L100.0100 #### [facility] [address] [place], [address] Platelet mean volume (Bld) [Entitic vol] 10.1 fL Normal 6.2-12.0 [facility] Comment on above: Performed By: #### L 501.9520, L500.2500, L503.7505, L100.0100 #### [facility] [address] [place], [address] Platelets (Bld) [#/Vol] 221 10*3/uL Normal 150-450 [facility] Comment on above: Performed By: #### L 501.9520, L500.2500, L503.7505, L100.0100 #### [facility] [address] [place], [address] RBC (Bld) [#/Vol] 3.84 10*6/uL Low 4.2-5.4 [facility] Comment on above: Performed By: #### L 501.9520, L500.2500, L503.7505, L100.0100 #### [facility] [address] [place], [address] RDW SD 46.4 fl High 35.1-43.9 [facility] Comment on above: Performed By: #### L 501.9520, L500.2500, L503.7505, L100.0100 #### [facility] [address] [place], [address] WBC (Bld) [#/Vol] 9.2 10*3/uL Normal 4.4-11.0 [facility] Comment on above: Performed By: #### L 501.9520, L500.2500, L503.7505, L100.0100 #### [facility] [address] [place], [address] Absolute Neut Normal 2.0-7.7 [facility] Comment on above: Result Comment: This specimen has been REJECTED due to Laboratory criteria: Clotted. DYAN has been notified of need of recollection. 09/19/24 Valencia Dee Performed By: #### L 501.9520, L500.2500, L503.7505, L100.0100 #### [facility] [address] [place], [address] HCT Normal 37-47 [facility] Comment on above: Result Comment: This specimen has been REJECTED due to Laboratory criteria: Clotted. DYAN has been notified of need of recollection. 09/19/24443 Junior Luiz Performed By: #### L 501.9520, L500.2500, L503.7505, L100.0100 #### [facility] [address] [place], [address] HGB Normal 12.0-15.0 [facility] Comment on above: Result Comment: This specimen has been REJECTED due to Laboratory criteria: Clotted. DYAN has been notified of need of recollection. 09/19/24443 Junior Fairbanks Performed By: #### L 501.9520, L500.2500, L503.7505, L100.0100 #### [facility] [address] [place], [address] MCH Normal 27.0-32.0 [facility] Comment on above: Result Comment: This specimen has been REJECTED due to Laboratory criteria: Clotted. DYAN has been notified of need of recollection. 09/19/24443 Junior Fairbanks Performed By: #### L 501.9520, L500.2500, L503.7505, L100.0100 #### [facility] [address] [place], [address] MCHC Normal 32-36 [facility] Comment on above: Result Comment: This specimen has been REJECTED due to Laboratory criteria: Clotted. DYAN has been notified of need of recollection. 09/19/24443 Junior Luiz Performed By: #### L 501.9520, L500.2500, L503.7505, L100.0100 #### [facility] [address] [place], [address] MCV Normal 81-99 [facility] Comment on above: Result Comment: This specimen has been REJECTED due to Laboratory criteria: Clotted. DYAN has been notified of need of recollection. 09/19/24443 Junior Luiz Performed By: #### L 501.9520, L500.2500, L503.7505, L100.0100 #### [facility] [address] [place], [address] NEUT% Normal 47-70 [facility] Comment on above: Result Comment: This specimen has been REJECTED due to Laboratory criteria: Clotted. ALAMMERS has been notified of need of recollection. 09/19/24443 Junior Luiz Performed By: #### L 501.9520, L500.2500, L503.7505, L100.0100 #### [facility] [address] [place], [address] PLT Normal 150-450 [facility] Comment on above: Result Comment: This specimen has been REJECTED due to Laboratory criteria: Clotted. ALAELANAERS has been notified of need of recollection. 09/19/24443 Junior Fairbanks Performed By: #### L 501.9520, L500.2500, L503.7505, L100.0100 #### [facility] [address] [place], [address] RBC Normal 4.2-5.4 [facility] Comment on above: Result Comment: This specimen has been REJECTED due to Laboratory criteria: Clotted. ALAMMERS has been notified of need of recollection. 09/19/24443 Junior Fairbanks Performed By: #### L 501.9520, L500.2500, L503.7505, L100.0100 #### [facility] [address] [place], [address] RDW CV Normal 11.6-14.6 [facility] Comment on above: Result Comment: This specimen has been REJECTED due to Laboratory criteria: Clotted. SABINAERS has been notified of need of recollection. 09/19/24443 Junior Fairbanks Performed By: #### L 501.9520, L500.2500, L503.7505, L100.0100 #### [facility] [address] [place], [address] RDW SD Normal 35.1-43.9 [facility] Comment on above: Result Comment: This specimen has been REJECTED due to Laboratory criteria: Clotted. ALAMMERS has been notified of need of recollection. 09/19/24443 Junior Fairbanks Performed By: #### L 501.9520, L500.2500, L503.7505, L100.0100 #### [facility] [address] [place], [address] WBC Normal 4.4-11.0 [facility] Comment on above: Result Comment: This specimen has been REJECTED due to Laboratory criteria: Clotted. ALAMMERS has been notified of need of recollection. 09/19/24443 Junior Fairbanks Performed By: #### L 501.9520, L500.2500, L503.7505, L100.0100 #### [facility] [address] [place], [address] Carbon dioxide, total [Moles /volume] in Central venous bloodOrdered By: Chetan Nick on 09-19-2024 CO2 [Moles/Vol] 20.9 mmol/L Low 21.0-32.0 [facility] Chest 1 View (Portable)on Chest 1 View (Portable) [facility] Imaging Services [address] [place] [address] Chest 1 View (Portable) MR#: [id number] Acct: [id number] Name: KALINA RUDD Rep #: [id number] : 1940 F 84 From: Edi Rocha MD PCP: Dr. Karen Resendiz MD Status: PRE ER Study: Chest 1 View (Portable) Date of Exam: 09/19/24 Exam# [id number] Ordering Dr: Chetan Nick DO PROCEDURE: CHEST 1 VIEW (PORTABLE) 09/19/2024 REASON FOR EXAM: CHEST PAIN TECHNIQUE: Frontal view of the chest. COMPARISON: 02/03/2024 FINDINGS: Scoliosis. Upper limits of normal heart size, possible LVH. Status post coronary artery stenting. Elevated right hemidiaphragm. No consolidation, effusion, or pneumothorax. RAD/Chest 1 View (Portable) IMPRESSION: No acute chest findings Reading Location: [facility] CC: Dr. Karen Resendiz MD; Chetan Nick DO Payroll Professional: Signed Normal [facility] Chloride assayOrdered By: Sue Nick on 09-19-2024 Chloride [Moles/Vol] 101 mmol/L 98-108 [facility] Emergency Department Summary on 09-19-2024 Emergency Department Summary [facility] Medical Records Department [address] [place] [address] Emergency Department Summary 09/19/24 MR#: [id number] Acct: [id number] Name: KALINA RUDD Rep #: [id number] : 1940 84 From: Chetan Nick DO PCP: Dr. Karen Resendiz MD Status:REG ER Location: ED HPI History of Present Illness Chief Complaint: Chest Pain Informant: patient and EMS Narrative Narrative: Patient is an 84-year-old female with past med history of hypertension fibromyalgia and coronary disease with stent placement in January 2024. She states that in June 2024 her . Since that time she is dealt with severe depression. She states that last night she felt a burning discomfort along the left side of her chest. She states there was no associated nausea vomiting diaphoresis or shortness of breath. She states that she has a hard time sleeping secondary to her grief/depression. She states that she took the medication prescribed by her family doctor to help with sleep but was unable to sleep and had concern that this abnormal chest discomfort could be cardiac because of her previous heart attack and therefore called EMS to be brought in for evaluation [facility] Medical History History of left heart catheterization [...] QDAY #30 tabs 02/20/24 Un known Rx isosorbide mononitrate 30 mg 30 mg PO QDAY 02/20/24 Unknown His tory tablet,extended release 24 hr losartan 50 mg tablet 50 mg PO QDAY 02/20/24 Unknown His tory gabapentin 300 mg capsule 300 mg PO TIDCM 09/07/24 Unknown H istory Allergy/AdvReac Type Severity Reaction Status Date / Time amitriptyline Allergy Unknown Verified 09/19/24 03:54 codeine Allergy Chest Verified 09/19/24 03:54 tightness trazodone Allergy Other Verified 09/19/24 03:54 Family History (Reviewed 09/07/24 @ 08:17 by Joanne Apple ROTOR CASTING MACHINE SETUP OPERATOR, ROTOR CASTING MACHINE SETUP OPERATOR-C) Father Hypertension Hx of CABG Surgical History History of cholecystectomy History of coronary artery stent placement Social History Smoking Status: Never smoker alcohol intake: never substance use type: does not use caffeine: No ROS ROS ED Constitutional Constitutional ED: Denies chills or fever(s) Eyes Eyes: Denies change in vision ENT ENT ED: Denies sore throat Cardiovascular Cardiovascular: Reports chest pain; Denies palpitations or racing heartbeat Respiratory/Chest Respiratory/Chest: Denies cough or dyspnea Gastrointestinal Gastrointestinal: Denies abdominal pain, diarrhea, nausea or vomiting Musculoskeletal Musculoskeletal: Denies back pain or myalgias Integumentary Denies rash Neurologic Neurologic: Denies headache(s) Psychiatric Psychiatric: Reports depression Hematologic/Lymphatic Hematologic/Lymphatic: Denies easy bleeding or easy bruising EXAM Physical Exam Const Vital Signs: 09/19/24 03:55 09/19/24 03:55 09/19/24 04:54 Temperature 98.5 F Temperature Source Oral Pulse Rate 93 94 Respiratory Rate 18 18 Respiratory Effort Normal Blood Pressure 151/63 H 123/82 H Blood Pressure Mean 92 95 Pulse Ox 97 98 Oxygen Delivery Method Room Air Room Air 09/19/24 05:00 09/19/24 06:00 09/19/24 07:00 Temperature Temperature Source Pulse Rate 84 80 90 Respiratory Rate 20 H 18 19 H Respiratory Effort Blood Pressure 124/57 H 114/50 L Blood Pressure Mean 79 71 Pulse Ox 99 97 97 Oxygen Delivery Method Room Air Room Air Room Air Positive well nourished and well developed General Appearance ED: well developed; Negative for pallor HEENT Reports dry mucous membranes HEENT Narrative: Normocephalic atraumatic No tongue or lip swelling no oral lesions no airway edema or compromise; no secondary findings in the posterior pharynx to suggest infection Mouth ED: Yes dry mucous membranes Mouth: dry mucous membranes (more content not included)... Normal [facility] Eosinophil percentageOrdered By: Chetan Nick on 09-19-2024 Eosinophils/100 WBC (Bld) 2.4 % 0-5 [facility] Erythrocyte distribution wid th ratioOrdered By: Chetan Nick on 09-19-2024 Erythrocyte distribution width (RBC) [Ratio] 13.8 % 11.6-14.6 [facility] Erythrocyte distribution wid th standard deviationOrdered By: Chetan Nick on 09-19-2024 Erythrocyte distribution width (RBC) [Ratio] 46.4 fl High 35.1-43.9 [facility] Glomerular filtration rate ( GFR) estimation/1.73 sq m using serum, plasma, or whole bOrdered By: Chetan Nick on 09-19-2024 GFR/1.73 sq M.predicted among non-blacks MDRD (S/P/Bld) [Vol rate/Area] 46 mL/min/{1.73_m2} Low >60 [facility] Comment on above: mL/min/1.73m2 CKD-EP I Creatinine Equation (2020) Hematocrit Auto (Bld) [Volum e fraction]Ordered By: Chetan Nick on 09-19-2024 Hematocrit (Bld) [Volume fraction] 34.9 % Low 37-47 [facility] Hemoglobin measurementOrdere d By: Chetan Nick on 09-19-2024 Hemoglobin (Bld) [Mass/Vol] 11.4 g/dL Low 12.0-15.0 [facility] Immature granulocytes/100 WB C Auto (Bld)Ordered By: Chetan Nick on 09-19-2024 Immature granulocytes/100 WBC (Bld) 0.400 % 0.0-0.9 [facility] Comment on above: IG% - Immature Granu locytes (promyelocytes, myelocytes and metamyelocytes) > 1% indicates that a LEFT SHIFT is Present. L501.4021on 09-19-2024 Trop T High Sen 13 ng/L Normal <=14 [facility] Comment on above: Order Comment: RED W. PREVIOUS SPECIMEN REJECTED DUE TO HEMOLYSIS. 09/19/24512 Alfredo Tenorio. Performed By: #### L 501.5200, L501.9520, L500.2500, L501.4021 #### [facility] Laboratory [address] [place], [address] MCV (mean corpuscular volume ) determinationOrdered By: Chetan Nick on 09-19-2024 MCV (RBC) [Entitic vol] 90.9 fL 81-99 [facility] Magnesiumon 09-19-2024 Magnesium [Mass/Vol] 2.5 mg/dL High 1.5-2.2 [facility] Comment on above: Order Comment: REDRA W. PREVIOUS SPECIMEN REJECTED DUE TO HEMOLYSIS. 09/19/24512 Alfredo Tenorio. Performed By: #### L 501.5200, L501.9520, L500.2500, L501.4021 #### [facility] Laboratory [address] [place], [address] Magnesium [Mass/Vol] 2.6 mg/dL High 1.5-2.2 [facility] Comment on above: Order Comment: This specimen has been REJECTED due to Laboratory criteria:Hemolyzed.HECTOR (ED) has been notified of need of recollection.09/19/24511 Alfredo Tenorio Result Comment: This specimen has been REJECTED due to Laboratory criteria: Hemolyzed. HECTOR (ED) has been notified of need of recollection. 09/19/24511 Alfredo Tenorio Performed By: #### L 501.9520, L500.2500, L503.7505, L100.0100 #### [facility] Laboratory [address] [place], [place], [id number] Magnesium measurement (mass/ volume)Ordered By: Chetan Nick on 09-19-2024 Magnesium (Unsp spec) [Mass/Vol] 2.5 mg/dL High 1.5-2.2 [facility] Mean corpuscular hemoglobin (MCH) determinationOrdered By: Chetan Nick on 09-19-2024 MCH (RBC) [Entitic mass] 29.7 pg 27.0-32.0 [facility] Mean corpuscular hemoglobin concentration (MCHC) determinationOrdered By: Chetan Nick on 09-19-2024 MCHC (RBC) [Mass/Vol] 32.7 g/dL 32-36 [facility] Mean platelet volume determi nationOrdered By: Chetan Nick on 09-19-2024 Platelet mean volume (Bld) [Entitic vol] 10.1 fL 6.2-12.0 [facility] Monocyte percentageOrdered B y: Chetan Nick on 09-19-2024 Monocytes/100 WBC (Bld) 7.5 % 0-10 [facility] Neutrophil percentageOrdered By: Chetan Nick on 09-19-2024 Neutrophils/100 WBC (Bld) 65.7 % 47-70 [facility] Nucleated red blood cell per centageOrdered By: Chetan Nick on 09-19-2024 Nucleated RBC/100 WBC (Bld) [Ratio] 0 % 0-5 [facility] Platelet countOrdered By: Sue Nick on 09-19-2024 Platelets (Bld) [#/Vol] 221 10*3/uL 150-450 [facility] Potassium measurement (mass/ volume)Ordered By: Chetan Nick on 09-19-2024 Potassium (Unsp spec) [Mass/Vol] 4.1 mmol/L 3.3-5.1 [facility] RBC Auto (Bld) [#/Vol]Ordere d By: Chetna Nick on 09-19-2024 RBC (Bld) [#/Vol] 3.84 10*6/uL Low 4.2-5.4 [facility] Serum creatinine measurement (mass/volume)Ordered By: Chetan Nick on 09-19-2024 Creatinine [Mass/Vol] 1.16 mg/dL 0.70-1.20 [facility] Serum glucose measurement (m ass/volume)Ordered By: Chetan Nick on 09-19-2024 Glucose [Mass/Vol] 124 mg/dL High 70-99 [facility] Serum or plasma calcium marietta urement (mass/volume)Ordered By: Chetan Nick on 09-19-2024 Calcium [Mass/Vol] 9.6 mg/dL 7.6-11.0 [facility] Serum or plasma urea nitroge n measurement (mass/volume)Ordered By: Chetan Nick on 09-19-2024 Urea nitrogen [Mass/Vol] 34 mg/dL High 4-19 [facility] Sodium levelOrdered By: Kelton Nick on 09-19-2024 Sodium [Moles/Vol] 136 mmol/L 133-145 [facility] TSH DL <= 0.005 mIU/L QnOrde red By: Chetan Nick on 09-19-2024 TSH Qn 3.110 uIU/mL 0.300-4.200 [facility] Thyroid Stim Hormone (TSH)on 09-19-2024 TSH 3.110 uIU/mL Normal 0.300-4.200 [facility] Comment on above: Order Comment: ANDRY Thornton PREVIOUS SPECIMEN REJECTED DUE TO HEMOLYSIS. 09/19/24 0513 Alfredo Tenorio. Performed By: #### L 501.1115, L501.6852, L500.2500, L501.4023 #### [facility] Laboratory [address] [place], [address] TSH 3.340 uIU/mL Normal 0.300-4.200 [facility] Comment on above: Order Comment: This specimen has been REJECTED due to Laboratory criteria:Hemolyzed.HECTOR (ED) has been notified of need of recollection.09/19/24511 Alfredo Tenorio Result Comment: This specimen has been REJECTED due to Laboratory criteria: Hemolyzed. HECTOR (ED) has been notified of need of recollection. 09/19/24511 Alfredo Tenorio Performed By: #### L 501.9520, L500.2500, L503.7505, L100.0100 #### [facility] Laboratory [address] [place], [place], [address] Troponin T HS 2 HRon 025 Trop T High Sen 14 ng/L Normal <=14 [facility] Comment on above: Performed By: #### L 501.9520, L500.2500, L503.7505, L100.0100 #### [facility] Laboratory [address] [place], [place], [address] Troponin T.cardiac [Mass/vol ume] in Serum or Plasma by High sensitivity methodOrdered By: Chetan Nick on 09-19-2024 Troponin T.cardiac High sensitivity method [Mass/Vol] 14 ng/L <14 [facility] Troponin T.cardiac High sensitivity method [Mass/Vol] 13 ng/L <14 [facility] White blood cell (WBC) count Ordered By: Chetan Nick on 09-19-2024 WBC (Bld) [#/Vol] 9.2 10*3/uL 4.4-11.0 [facility] CNOVon 09-08-2024 CNOV Office Visit (INTMWS ) -- KALINA RUDD ([id number]) 1940 F T Date Time Provider Department 09/08/24 2:00 PM NELLI REYES INTMWS During your visit today, we recorded the following information about you: Pulse Respiration Blood pressure Weight 68/minute 16/minute 128/72 58.9 kg Nelli Reyes APRN.CNP 09/08/2024 3:36 PM Signed SUBJECTIVE Kalina Rudd is a 84 year old female here today for a check up on her medical problems. Chief Complaint Patient presents with: Recheck: Follow up, review labs. depression HPI Kalina Rudd is a 84-year-old female, with a history of MD and recent bereavement, presenting with fatigue, weight [...] her diet. Kalina has a history of MD in January, for which she had three stents placed. She reports not feeling well since the MD and has an upcoming echocardiogram scheduled for [...] a half later. She reports that her chin strap cutter noted elevated thyroid levels and suggested that treatment might improve her energy levels. She also reports that her chin strap cutter noted signs of depression, anxiety, and dehydration. Kalina reports a history of anxiety and describes herself as a worrier. She has not sought counseling but mentions that her chin strap cutter recommended it. She has a son in [place] with whom she had a recent disagreement, leading to feelings of isolation. She has another son and a grandson locally, with whom she maintains regular contact. She expresses feelings of sadness and depression, stating, I'm so depressed, it's awful. Recording using [employer] software for draft documentation of the visit was discussed with the patient/authorized community health representative; all questions welcomed and answered. Patient/authorized community health representative agreed to proceed Her medications were [...] vaginitis. Two to three times a week. [employer] [facility] probiotics--Yeast and Vaginal PH support probiotic. Probiotic [...] PROBLEM LIST (more content not included)... Normal [facility] Absolute lymphocyte countOrd ered By: Joanne Apple on 09-07-2024 Lymphocytes Auto (Unsp spec) [#/Vol] 2.46 10*3/uL 0.83-4.51 [facility] Absolute neutrophil countOrd ered By: Joanne Apple on 09-07-2024 Neutrophils (Bld) [#/Vol] 6.3 10*3/uL 2.0-7.7 [facility] Anion gap in Serum or Plasma Ordered By: Joanne Apple on 09-07-2024 Anion gap [Moles/Vol] 14 mmol/L 5-15 [facility] Automated lymphocyte count a s percentage of total leukocytesOrdered By: Joanne Apple on 09-07-2024 Lymphocytes/100 WBC Auto (Unsp spec) 25.5 % - [facility] BUN/creatinine ratioOrdered By: Joanne Apple on 09-07-2024 Urea nitrogen/Creatinine [Mass ratio] 19.9 mg/mg 10- [facility] Basic Metabolic Profile (BMP )on 09-07-2024 BUN/CRE 19.9 RATIO Normal - [facility] Comment on above: Performed By: #### L 501.9520, L500.2500, L503.7505, L100.0100 #### [facility] Laboratory [address] [place], [address] Calcium [Mass/Vol] 10.3 mg/dL Normal 7.6-11.0 [facility] Comment on above: Performed By: #### L 501.9520, L500.2500, L503.7505, L100.0100 #### [facility] Laboratory [address] [place], [address] Chloride [Moles/Vol] 103 mmol/L Normal 98-108 [facility] Comment on above: Performed By: #### L 501.9520, L500.2500, L503.7505, L100.0100 #### [facility] Laboratory [address] [place], [address] CO2 [Moles/Vol] 21.1 mmol/L Normal 21.0-32.0 [facility] Comment on above: Performed By: #### L 501.9520, L500.2500, L503.7505, L100.0100 #### [facility] Laboratory [address] [place], [address] Creatinine [Mass/Vol] 1.41 mg/dL High 0.70-1.20 [facility] Comment on above: Performed By: #### L 501.9520, L500.2500, L503.7505, L100.0100 #### [facility] Laboratory [address] [place], [address] GAP 14 Normal 5-15 [facility] Comment on above: Performed By: #### L 501.9520, L500.2500, L503.7505, L100.0100 #### [facility] Laboratory [address] [place], [address] GFR/1.73 sq M.predicted among non-blacks MDRD (S/P/Bld) [Vol rate/Area] 37 mL/min/{1.73_m2} Low >60 [facility] Comment on above: Result Comment: mL/m in/1.73m2 CKD-EPI Creatinine Equation (2020) Performed By: #### L 501.9520, L500.2500, L503.7505, L100.0100 #### [facility] Laboratory [address] [place], [address] Glucose [Mass/Vol] 120 mg/dL High 70-99 [facility] Comment on above: Performed By: #### L 501.9520, L500.2500, L503.7505, L100.0100 #### [facility] Laboratory [address] [place], [address] Potassium [Moles/Vol] 4.9 mmol/L Normal 3.3-5.1 [facility] Comment on above: Performed By: #### L 501.9520, L500.2500, L503.7505, L100.0100 #### [facility] Laboratory [address] [place], [address] Sodium [Moles/Vol] 138 mmol/L Normal 133-145 [facility] Comment on above: Performed By: #### L 501.9520, L500.2500, L503.7505, L100.0100 #### [facility] [address] [place], [address] Urea nitrogen [Mass/Vol] 28 mg/dL High 4-19 [facility] Comment on above: Performed By: #### L 501.9520, L500.2500, L503.7505, L100.0100 #### [facility] Laboratory [address] [place], [address] Basophil percentageOrdered B y: Joanne Apple on 09-07-2024 Basophils/100 WBC (Bld) 0.5 % 0-1 [facility] CBC W/Diff, Automatedon 08-11 Absolute Lymph 2.46 X10 3/uL Normal 0.83-4.51 [facility] Comment on above: Performed By: #### L 501.9520, L500.2500, L503.7505, L100.0100 #### [facility] Laboratory [address] [place], [address] Absolute Neut 6.3 X10 3/uL Normal 2.0-7.7 [facility] Comment on above: Performed By: #### L 501.9520, L500.2500, L503.7505, L100.0100 #### [facility] Laboratory [address] [place], [address] Basophils/100 WBC (Bld) 0.5 % Normal 0-1 [facility] Comment on above: Performed By: #### L 501.9520, L500.2500, L503.7505, L100.0100 #### [facility] Laboratory [address] [place], [address] Eosinophils/100 WBC (Bld) 1.8 % Normal 0-5 [facility] Comment on above: Performed By: #### L 501.9520, L500.2500, L503.7505, L100.0100 #### [facility] Laboratory [address] [place], [address] Erythrocyte distribution width (RBC) [Ratio] 13.4 % Normal 11.6-14.6 [facility] Comment on above: Performed By: #### L 501.9520, L500.2500, L503.7505, L100.0100 #### [facility] Laboratory [address] [place], [address] Hematocrit (Bld) [Volume fraction] 42.4 % Normal 37-47 [facility] Comment on above: Performed By: #### L 501.9520, L500.2500, L503.7505, L100.0100 #### [facility] Laboratory [address] [place], [address] Hemoglobin (Bld) [Mass/Vol] 13.9 g/dL Normal 12.0-15.0 [facility] Comment on above: Performed By: #### L 501.9520, L500.2500, L503.7505, L100.0100 #### [facility] Laboratory [address] [place], [address] IG% 0.300 Normal 0.0-0.9 [facility] Comment on above: Result Comment: IG% - Immature Granulocytes (promyelocytes, myelocytes and metamyelocytes) > 1% indicates that a LEFT SHIFT is Present. Performed By: #### L 501.9520, L500.2500, L503.7505, L100.0100 #### [facility] Laboratory [address] [place], [address] Lymphocytes/100 WBC (Bld) 25.5 % Normal 19-41 [facility] Comment on above: Performed By: #### L 501.9520, L500.2500, L503.7505, L100.0100 #### [facility] Laboratory [address] [place], [address] MCH (RBC) [Entitic mass] 29.8 pg Normal 27.0-32.0 [facility] Comment on above: Performed By: #### L 501.9520, L500.2500, L503.7505, L100.0100 #### [facility] Laboratory [address] [place], [address] MCHC (RBC) [Mass/Vol] 32.8 g/dL Normal 32-36 [facility] Comment on above: Performed By: #### L 501.9520, L500.2500, L503.7505, L100.0100 #### [facility] Laboratory [address] [place], [address] MCV (RBC) [Entitic vol] 91.0 fL Normal 81-99 [facility] Comment on above: Performed By: #### L 501.9520, L500.2500, L503.7505, L100.0100 #### [facility] Laboratory [address] [place], [address] Monocytes/100 WBC (Bld) 6.9 % Normal 0-10 [facility] Comment on above: Performed By: #### L 501.9520, L500.2500, L503.7505, L100.0100 #### [facility] Laboratory [address] [place], [address] Neutrophils/100 WBC (Bld) 65.0 % Normal 47-70 [facility] Comment on above: Performed By: #### L 501.9520, L500.2500, L503.7505, L100.0100 #### [facility] Laboratory [address] [place], [address] Nucleated RBC (Bld) [#/Vol] 0 10*3/uL Normal 0-5 [facility] Comment on above: Performed By: #### L 501.9520, L500.2500, L503.7505, L100.0100 #### [facility] Laboratory [address] [place], [address] Platelet mean volume (Bld) [Entitic vol] 10.1 fL Normal 6.2-12.0 [facility] Comment on above: Performed By: #### L 501.9520, L500.2500, L503.7505, L100.0100 #### [facility] Laboratory [address] [place], [address] Platelets (Bld) [#/Vol] 299 10*3/uL Normal 150-450 [facility] Comment on above: Performed By: #### L 501.9520, L500.2500, L503.7505, L100.0100 #### [facility] [address] [place], [address] RBC (Bld) [#/Vol] 4.66 10*6/uL Normal 4.2-5.4 [facility] Comment on above: Performed By: #### L 501.9520, L500.2500, L503.7505, L100.0100 #### [facility] Laboratory [address] [place], [address] RDW SD 45.6 fl High 35.1-43.9 [facility] Comment on above: Performed By: #### L 501.9520, L500.2500, L503.7505, L100.0100 #### [facility] Laboratory [address] [place], [address] WBC (Bld) [#/Vol] 9.7 10*3/uL Normal 4.4-11.0 [facility] Comment on above: Performed By: #### L 501.9520, L500.2500, L503.7505, L100.0100 #### [facility] Laboratory [address] [place], [address] Carbon dioxide, total [Moles /volume] in Central venous bloodOrdered By: Joanne Apple on 09-07-2024 CO2 [Moles/Vol] 21.1 mmol/L 21.0-32.0 [facility] Cardiology Visit Reporton Cardiology Visit Report [facility] [address] [place] [address] OFFICE VISIT Date of Service: 09/07/24 MR#: [id number] Acct: [id number] Name: KALINA RUDD Rep #: [id number] 1 : 1940 Provider: MEG phan Age/Sex: 84/F Location: [facility] Status: Signed HPI HPI History of Present Illness Details: This is a 84-year-old white female who presents to the office today for a cardiovascular follow-up visit. The patient originally presented [facility] with a STEMI on 01/19/2024 and she is underwent emergent left heart catheterization and was life lighted to [place] for emergent percutaneous revascularization due to the complex nature of her anatomy. She received an LAD stent a bifurcating circumflex OM stent in the residual diagonal branch with 70% stenosis was treated medically. Her ejection fraction the day after was found to be 55-60%. Following discharge the patient returns the emergency department on 2 separate occasions once at [place] [facility] and once at [facility] with a hypertensive urgency. Her medications were [...] Monitor Intake Visit Reasons: See clinical notes LZhane (KR approved) Biology Specialist Required: No Accompanied by: Self Is patient [...] don't remember what happened) PFSH Medical History History of left heart [...] Muscle ache (more content not included)... Normal [facility] Chloride assayOrdered By: Keegan Apple on 09-07-2024 Chloride [Moles/Vol] 103 mmol/L 98-108 [facility] Eosinophil percentageOrdered By: Joanne Apple on 09-07-2024 Eosinophils/100 WBC (Bld) 1.8 % 0-5 [facility] Erythrocyte distribution wid th ratioOrdered By: Joanne Apple on 09-07-2024 Erythrocyte distribution width (RBC) [Ratio] 13.4 % 11.6-14.6 [facility] Erythrocyte distribution wid th standard deviationOrdered By: Joanne Apple on 09-07-2024 Erythrocyte distribution width (RBC) [Ratio] 45.6 fl High 35.1-43.9 [facility] Glomerular filtration rate ( GFR) estimation/1.73 sq m using serum, plasma, or whole bOrdered By: Joanne Apple on 09-07-2024 GFR/1.73 sq M.predicted among non-blacks MDRD (S/P/Bld) [Vol rate/Area] 37 mL/min/{1.73_m2} Low >60 [facility] Comment on above: mL/min/1.73m2 CKD-EP I Creatinine Equation (2020) Hematocrit Auto (Bld) [Volum e fraction]Ordered By: Joanne Apple on 09-07-2024 Hematocrit (Bld) [Volume fraction] 42.4 % 37-47 [facility] Hemoglobin measurementOrdere d By: Joanne Apple on 09-07-2024 Hemoglobin (Bld) [Mass/Vol] 13.9 g/dL 12.0-15.0 [facility] Immature granulocytes/100 WB C Auto (Bld)Ordered By: Joanne Apple on 09-07-2024 Immature granulocytes/100 WBC (Bld) 0.300 % 0.0-0.9 [facility] Comment on above: IG% - Immature Granu locytes (promyelocytes, myelocytes and metamyelocytes) > 1% indicates that a LEFT SHIFT is Present. MCV (mean corpuscular volume ) determinationOrdered By: Joanne Apple on 09-07-2024 MCV (RBC) [Entitic vol] 91.0 fL 81-99 [facility] Mean corpuscular hemoglobin (MCH) determinationOrdered By: Joanne Apple on 09-07-2024 MCH (RBC) [Entitic mass] 29.8 pg 27.0-32.0 [facility] Mean corpuscular hemoglobin concentration (MCHC) determinationOrdered By: Joanne Apple on 09-07-2024 MCHC (RBC) [Mass/Vol] 32.8 g/dL 32-36 [facility] Mean platelet volume determi nationOrdered By: Joanne Apple on 09-07-2024 Platelet mean volume (Bld) [Entitic vol] 10.1 fL 6.2-12.0 [facility] Monocyte percentageOrdered B y: Joanne Apple on 09-07-2024 Monocytes/100 WBC (Bld) 6.9 % 0-10 [facility] Natriuretic peptide.B prohor cheryl N-Terminal [Mass/volume] in Serum or PlasmaOrdered By: Joanne Apple on 09-07-2024 Natriuretic peptide.B prohormone N-Terminal [Mass/Vol] 258 pg/mL <1800 [facility] Comment on above: Heart Failure Unlike ly: < 300 pg/mLHeart Failure Likely< 50 Years: > 450 pg/mL50-75 Years: > 900 pg/mL>75 Years: > 1800 pg/mL Neutrophil percentageOrdered By: Joanne Apple on 09-07-2024 Neutrophils/100 WBC (Bld) 65.0 % 47-70 [facility] Nucleated red blood cell per centageOrdered By: Joanne Apple on 09-07-2024 Nucleated RBC/100 WBC (Bld) [Ratio] 0 % 0-5 [facility] Platelet countOrdered By: Keegan Apple on 09-07-2024 Platelets (Bld) [#/Vol] 299 10*3/uL 150-450 [facility] Potassium measurement (mass/ volume)Ordered By: Joanne Apple on 09-07-2024 Potassium (Unsp spec) [Mass/Vol] 4.9 mmol/L 3.3-5.1 [facility] Pro- Brain NATRIURETIC PEPTI David 09-07-2024 Natriuretic peptide B (Bld) [Mass/Vol] 258 pg/mL Normal <=1800 [facility] Comment on above: Result Comment: Hear t Failure Unlikely: < 300 pg/mL Heart Failure Likely < 50 Years: > 450 pg/mL 50-75 Years: > 900 pg/mL >75 Years: > 1800 pg/mL Performed By: #### L 501.9520, L500.2500, L503.7505, L100.0100 #### [facility] Laboratory [address] [place], [address] RBC Auto (Bld) [#/Vol]Ordere d By: Joanne Apple on 09-07-2024 RBC (Bld) [#/Vol] 4.66 10*6/uL 4.2-5.4 [facility] Serum creatinine measurement (mass/volume)Ordered By: Joanne Apple on 09-07-2024 Creatinine [Mass/Vol] 1.41 mg/dL High 0.70-1.20 [facility] Serum glucose measurement (m ass/volume)Ordered By: Joanne Apple on 09-07-2024 Glucose [Mass/Vol] 120 mg/dL High 70-99 [facility] Serum or plasma calcium marietta urement (mass/volume)Ordered By: Joanne Apple on 09-07-2024 Calcium [Mass/Vol] 10.3 mg/dL 7.6-11.0 [facility] Serum or plasma urea nitroge n measurement (mass/volume)Ordered By: Joanne Apple on 09-07-2024 Urea nitrogen [Mass/Vol] 28 mg/dL High 4-19 [facility] Sodium levelOrdered By: Suzie Apple on 09-07-2024 Sodium [Moles/Vol] 138 mmol/L 133-145 [facility] TSH DL <= 0.005 mIU/L QnOrde red By: Joanne Apple on 09-07-2024 TSH Qn 4.350 uIU/mL High 0.300-4.200 [facility] Thyroid Stim Hormone (TSH)on 09-07-2024 TSH 4.350 uIU/mL High 0.300-4.200 [facility] Comment on above: Performed By: #### L 501.9520, L500.2500, L503.7505, L100.0100 #### [facility] Laboratory [facility] [place], [address] White blood cell (WBC) count Ordered By: Joanne Apple on 09-07-2024 WBC (Bld) [#/Vol] 9.7 10*3/uL 4.4-11.0 [facility] CNOVon 06-30-2024 CNOV Office Visit (INTMWS ) -- KALINA RUDD ([id number]) 1940 F T Date Time Provider Department 06/30/24 4:00 PM KAREN RESENDIZ INTMWS During your visit today, we recorded the following information about you: Temperature Pulse Blood pressure 98.2 degrees 74/minute 122/62 Karen Resendiz MD 07/19/2024 1:01 AM Signed This note was created using Steeplechase Networksriter. Subjective Kalina Rudd is a 84 year [...] is currently under the care of a chin strap cutter and reports stable cardiac status, with her [...] Osteoporosis, unspecified STEMI (ST elevation myocardial infarction) ([facility]) 01/19/2024 Current Outpatient Medications Medication Sig albuterol [...] times a week. Miscellaneous Medical Supply [facility] probiotics--Yeast and Vaginal PH support probiotic. Probiotic [...] at nig (more content not included)... Normal [facility] CNOVon 05-11-2024 CNOV Office Visit (INTMWS ) -- KALINA RUDD ([id number]) 1940 F T Date Time Provider Department 05/11/24 1:20 PM KAREN RESENDIZ INTMWS During your visit today, we recorded the following information about you: Pulse Respiration Blood pressure Weight 80/minute 16/minute 122/58 63.5 kg Height 1.53 m Karen Resendiz MD 05/11/2024 2:34 PM Signed Kalina Everardo Rudd is a 83 year old female [...] The patient consented to the use of PurePredictive software for draft documentation of the visit consistent with [facility]s Notice of Privacy Practices. Kalina is a 83-year-old female with a history of MD, HTN, and eczema, presenting for a Medicare Annual Wellness Visit. Kalina reports right hip pain that occurs when standing up and walking, but is alleviated by straightening the leg before walking. The pain is located in the anterior groin and buttocks. 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 She finds [...] amlodipine and has not yet contacted her chin strap cutter about reducing the dose. She also reports [...] has not seen her dentist since her MD, but plans to schedule an appointment. She [...] 27.13 kg/m? (more content not included)... Normal [facility] 12 Lead EKG performed by [facility] on 04-14-2024 12 Lead EKG performed by [address] [address] 12 Lead EKG performed by [facility] 04/14/24 1308 MR#: [id number] Acct: [id number] Name: KALINA RUDD Rep #: [id number] : 1940 83 From: Tessie Doe Attending Dr: MARCUS Antoine Status: DEP AMB Ordering Dr: Tessie Apple Date: 07/04 Location: [facility] Sex: F C Admitted: [facility]/12 Lead EKG performed by [facility] ECG Report Interpretation Sinus Rhythm Low voltage in precordial leads. -Poor R-wave progression -may be secondary to pulmonary disease consider old anterior infarct. ABNORMAL Electronically signed on 04/15/2024 at 08:15 by Valdemar Kimble Software Version [id number] 04/15/24 0818 Date Tessie VELAZQUEZ CC: Dr. Karen Resendiz MD Date Dictated: 04/14/24 1308 Date Transcribed: 04/14/241307 Payroll Professional: YESENIA Signed Normal [facility] Cardiology Visit Reporton Cardiology Visit Report [facility] [address] [place] [address] OFFICE VISIT Date of Service: 04/14/24 MR#: [id number] Acct: [id number] Name: KALINA RUDD Rep #: [id number] : 1940 Provider: MARCUS Allen Age/Sex: 83/F Location: [facility] Status: Signed HPI HPI History of Present Illness Details: Patient comes in is a 83-year-old white female for monitoring for cardiovascular status. The patient originally presented [facility] with a STEMI on 01/19/2024 and she is underwent emergent left heart catheterization and was life lighted to [place] for emergent percutaneous revascularization due to the complex nature of her anatomy. She received an LAD stent a bifurcating circumflex OM stent in the residual diagonal branch with 70% stenosis was treated medically. Her ejection fraction the day after was found to be 55-60%. Following discharge the patient returns the emergency department on 2 separate occasions once at [place] and once at [facility] with a hypertensive urgency. Her medications were adjusted which she remains extremely confused about. The patient carries a longstanding history of fibromyalgia which is chronic back discomfort. She also has left shoulder pain. She does not remember what her symptoms felt like when she presented with her STEMI. She had she was seen in the [place] cardiology office and is confused about what [...] Intake Visit Reasons: 2 M FU PER Biology Specialist Required: No Is patient in pain?: No [...] to call with updated list of medications [facility] Medical History (Updated 04/14/24 @ 13:10 by [...] walking: None (more content not included)... 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 BORDERLINEElectronically signed on 03/29/2024 at 09:[address] Kenny Chaudhary Software Version [id number] 03/29/24 0952 Date Joel WEAVER CC: Dr. Karen Resendiz MD Date Dictated: 03/26/24 1019 Date Transcribed: 03/26/24 101 Payroll Professional: BLAINE Signed Normal [facility] Cardiology Visit Reporton Cardiology Visit Report [facility] [address] [place] [address] OFFICE VISIT Date of Service: 03/26/24 MR#: [id number] Acct: [id number] Name: KALINA RUDD Rep #: [id number] : 1940 Provider: MEG moran Age/Sex: 83/F Location: [facility] Status: Signed HPI HPI History of Present Illness Details: Patient comes in is a 83-year-old white female for monitoring for cardiovascular status. The patient originally presented [facility] with a STEMI on 01/19/2024 and she is underwent emergent left heart catheterization and was life lighted to [place] for emergent percutaneous revascularization due to the complex nature of her anatomy. She received an LAD stent a bifurcating circumflex OM stent in the residual diagonal branch with 70% stenosis was treated medically. Her ejection fraction the day after was found to be 55-60%. Following discharge the patient returns the emergency department on 2 separate occasions once at [place] and once at [facility] with a hypertensive urgency. Her medications were adjusted which she remains extremely confused about. The patient carries a longstanding history of fibromyalgia which is chronic back discomfort. She also has left shoulder pain. She does not remember what her symptoms felt like when she presented with her STEMI. She had she was seen in the [place] cardiology office and is confused about what [...] mo f/u for meds per Dr. Good Biology Specialist Required: No Accompanied by: Is patient in [...] mg 30 mg PO QDAY 02/20/24 03/26/24 Hi story tablet,extended release 24 hr losartan 50 mg tablet 50 mg PO QDAY 02/20/24 03/26/24 Hi story Ejection fraction %: 55 Have you fallen in the past year?: Yes (3 wks ago at home. no injury.) [facility] Medical History History of left heart catheterization [...] loss Eyes (more content not included)... Normal [facility] CNOVon 03-12-2024 [facility] Office Visit (INTMWS ) -- KALINA RUDD ([id number]) 1940 F T Date Time Provider Department 03/12/24 11:20 AM ALEXEI SKELTON INTMWS During your visit today, we recorded the following information about you: Temperature Pulse Respiration Blood pressure 100 degrees 81/minute 20/minute 128/60 Weight 63.3 kg Alexei Skelton MD 03/12/2024 1:48 PM Signed This note was created using Steeplechase Networksriter. 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 [facility] probiotics--Yeast and Vaginal PH support probiotic. Probiotic [...] sounds: Examinati (more content not included)... Normal [facility] XR CHEST 2V FRONTAL/LATon XR CHEST [...] degenerative change. IMPRESSION: No acute radiographic abnormality. Payroll Professional: [facility] Transcribe Date/Time: Mar 12 2024 5:06P Dictated by : ANDREW ROBERTSON MD This examination was interpreted and the report reviewed and electronically signed by: ANDREW ROBERTSON MD on Mar 12 2024 5:10PM EST [id number] Normal [facility] XR Chest PA and Lateralon IMPRESSION: No acute radiographic abnormality. Payroll Professional: [facility] Transcribe Date/Time: Mar 12 2024 5:06P [...] Multilevel degenerative change. DIVISION OF RADIOLOGY Provider, [facility] - 03/12/2024 * * *Final Report* [...] change. IMPRESSION IMPRESSION: No acute radiographic abnormality. Payroll Professional: [facility] Transcribe Date/Time: Mar 12 2024 5:06P Dictated by : ANDREW ROBERTSON MD This examination was interpreted and the report reviewed and electronically signed by: ANDREW ROBERTSON MD on Mar 12 2024 5:10PM EST [facility] Radiology Study observation (narrative) [facility] XR Chest PA and LateralOrder ed By: [facility] Provider on 03-12-2024 [facility] Cardiology Visit Reporton Cardiology Visit Report [facility] [address] [place] [address] OFFICE VISIT Date of Service: 02/20/24 MR#: [id number] Acct: [id number] Name: KALINA RUDD Rep #: [id number] : 1940 Provider: Dr. Kenny tracy MD Age/Sex: 83/F Location: [facility] Status: Signed HPI HPI History of Present Illness Details: Patient comes in is a 83-year-old white female for monitoring for cardiovascular status. The patient originally presented [facility] with a STEMI on 01/19/2024 and she is underwent emergent left heart catheterization and was life lighted to [place] for emergent percutaneous revascularization due to the complex nature of her anatomy. She received an LAD stent a bifurcating circumflex OM stent in the residual diagonal branch with 70% stenosis was treated medically. Her ejection fraction the day after was found to be 55-60%. Following discharge the patient returns the emergency department on 2 separate occasions once at [place] and once at [facility] with a hypertensive urgency. Her medications were [...] She had she was seen in the [place] cardiology office and is confused about what [...] Method room air Intake Visit Reasons: S/P [place] STEMI 01/18 Biology Specialist Required: No Accompanied by: Is patient in [...] with ac (more content not included)... Normal [facility] CNOVon 01-27-2024 CNOV Office Visit (INTMWS ) -- KALINA RUDD ([id number]) 1940 F CHT Date Time Provider Department [...] visit. HPI Patient presents with: Hospital F/U: [place] x 2 hospital visits SUBJECTIVE: Kalina Rudd [...] and stent placements, she was transferred to [facility] for further evaluation. Upon arrival to the [...] 83-year-old female with a history of recent MD and stent placement, presenting for follow-up after two recent hospital admissions. Kalina reports experiencing back and chest pain following two recent hospital admissions for an MD, during which three stents were placed. She [...] Kalina has a follow-up appointment with her chin strap cutter on February 17, but she plans to switch to a local chin strap cutter due to insurance coverage issues. She expresses [...] benign Generalize (more content not included)... Normal [facility] .Auto Diffon 12-16-2024 Basophil, Absolute 0.0 10 3/mcL Normal 0.0-0.3 [facility] Comment on above: Performed By: #### A DIFF, CBC, GFR, ANEU, BMP, MG #### [address] [address] Basophils/100 WBC (Bld) 0.7 % Normal 0.0-2.5 [facility] Comment on above: Performed By: #### A DIFF, CBC, GFR, ANEU, BMP, MG #### [address] [address] Eosinophil, Absolute 0.2 10 3/mcL Normal 0.0-0.7 [facility] Comment on above: Performed By: #### A DIFF, CBC, GFR, ANEU, BMP, MG #### [address] [address] Eosinophils/100 WBC (Bld) 3.5 % Normal 0.0-6.0 [facility] Comment on above: Performed By: #### A DIFF, CBC, GFR, ANEU, BMP, MG #### [address] [address] Lymphocyte, Absolute 2.0 10 3/mcL Normal 0.9-4.3 [facility] Comment on above: Performed By: #### A DIFF, CBC, GFR, ANEU, BMP, MG #### [address] [address] Lymphocytes/100 WBC (Bld) 30.6 % Normal 20.0-40.0 [facility] Comment on above: Performed By: #### A DIFF, CBC, GFR, ANEU, BMP, MG #### [address] [address] Monocyte, Absolute 0.5 10 3/mcL Normal 0.1-1.4 [facility] Comment on above: Performed By: #### A DIFF, CBC, GFR, ANEU, BMP, MG #### [address] [address] Monocytes/100 WBC (Bld) 7.9 % Normal 2.0-13.0 [facility] Comment on above: Performed By: #### A DIFF, CBC, GFR, ANEU, BMP, MG #### [address] [address] Neutrophils/100 WBC (Bld) 57.3 % Normal 50.0-75.0 [facility] Comment on above: Performed By: #### A DIFF, CBC, GFR, ANEU, BMP, MG #### [address] [address] .GFRon 01-26-2024 GFR >60 Normal [facility] Comment on above: Result Comment: [...] DIFF, CBC, GFR, ANEU, BMP, MG #### [address] [address] GFR Non- 55 ml/min/1.73sqm [facility] Comment on above: Result Comment: [...] DIFF, CBC, GFR, ANEU, BMP, MG #### [address] [address] .NEUABSon 01-26-2024 Neutrophil, Absolute 3.7 10 3/mcL Normal 2.3-8.1 [facility] Comment on above: Performed By: #### A DIFF, CBC, GFR, ANEU, BMP, MG #### [address] [address] BMPon 01-26-2024 BUN/Creatinine Ratio 18.6 ratio Normal 10.0-22.0 [facility] Comment on above: Performed By: #### A DIFF, CBC, GFR, ANEU, BMP, MG #### [place] [address] Calcium [Mass/Vol] 9.2 mg/dL Normal 8.7-10.4 [facility] Comment on above: Performed By: #### A DIFF, CBC, GFR, ANEU, BMP, MG #### [place] [address] Chloride [Moles/Vol] 110 mmol/L Normal 98-110 [facility] Comment on above: Performed By: #### A DIFF, CBC, GFR, ANEU, BMP, MG #### [place] [address] CO2 [Moles/Vol] 24 mmol/L Normal 22-32 [facility] Comment on above: Performed By: #### A DIFF, CBC, GFR, ANEU, BMP, MG #### [place] [address] Creatinine [Mass/Vol] 0.97 mg/dL Normal 0.50-1.20 [facility] Comment on above: Result Comment: Test ing performed on Penboost analyzer using enzymatic creatinine methodology. Performed By: #### A DIFF, CBC, GFR, ANEU, BMP, MG #### [place] [address] Electrolyte Balance 6.0 mEq/L Normal 4.0-15.0 [facility] Comment on above: Performed By: #### A DIFF, CBC, GFR, ANEU, BMP, MG #### [address] [address] Glucose [Mass/Vol] 98 mg/dL Normal 82-115 [facility] Comment on above: Performed By: #### A DIFF, CBC, GFR, ANEU, BMP, MG #### [address] [address] Potassium [Moles/Vol] 4.2 mmol/L Normal 3.5-5.0 [facility] Comment on above: Performed By: #### A DIFF, CBC, GFR, ANEU, BMP, MG #### [address] [address] Sodium [Moles/Vol] 140 mmol/L Normal 136-145 [facility] Comment on above: Performed By: #### A DIFF, CBC, GFR, ANEU, BMP, MG #### [address] [address] Urea nitrogen [Mass/Vol] 18.0 mg/dL Normal 8.0-22.0 [facility] Comment on above: Performed By: #### A DIFF, CBC, GFR, ANEU, BMP, MG #### [address] [address] BNP,B-Type NATRIURETIC PEPTI David 01-26-2024 Natriuretic peptide B (Bld) [Mass/Vol] 177.2 pg/mL High 0-100 [facility] Comment on above: Performed By: #### L 501.9520, L500.2500, L503.7505, L100.0100 #### [facility] Laboratory [address] [place], [address] CBCon 01-26-2024 Erythrocyte distribution width (RBC) [Ratio] 13.6 % Normal 11.5-15.5 [facility] Comment on above: Performed By: #### A DIFF, CBC, GFR, ANEU, BMP, MG #### [address] [address] Hematocrit (Bld) [Volume fraction] 35.3 % Normal 34.0-46.0 [facility] Comment on above: Performed By: #### A DIFF, CBC, GFR, ANEU, BMP, MG #### [address] [address] Hgb 12.0 G/dL Normal 12.0-16.0 [facility] Comment on above: Performed By: #### A DIFF, CBC, GFR, ANEU, BMP, MG #### [address] [address] MCH (RBC) [Entitic mass] 31.1 pg Normal 27.0-33.0 [facility] Comment on above: Performed By: #### A DIFF, CBC, GFR, ANEU, BMP, MG #### [place] [address] MCHC 33.9 G/dL Normal 32.0-36.0 [facility] Comment on above: Performed By: #### A DIFF, CBC, GFR, ANEU, BMP, MG #### [place] [address] MCV (RBC) [Entitic vol] 91.7 fL Normal 80.0-99.0 [facility] Comment on above: Performed By: #### A DIFF, CBC, GFR, ANEU, BMP, MG #### [place] [address] Platelet 307 10 3/mcL Normal 150-450 [facility] Comment on above: Performed By: #### A DIFF, CBC, GFR, ANEU, BMP, MG #### [place] [address] Platelet mean volume (Bld) [Entitic vol] 7.8 fL Normal 6.6-10.5 [facility] Comment on above: Performed By: #### A DIFF, CBC, GFR, ANEU, BMP, MG #### [place] [id number] RBC 3.85 10 6/mcL Low 4.10-5.30 [facility] Comment on above: Performed By: #### A DIFF, CBC, GFR, ANEU, BMP, MG #### [place] [id number] WBC 6.5 10 3/mcL Normal 4.5-10.8 [facility] Comment on above: Performed By: #### A DIFF, CBC, GFR, ANEU, BMP, MG #### [place] [address] LABORATORYOrdered By: SYSTEM SYSTEM on 01-26-2024 Basophils (Bld) [#/Vol] 0.0 103/mcL Normal 0.0 - 0.3 10^3/mcL AH Workflow SS Basophils/100 WBC (Bld) 0.7 % Normal 0.0 - 2.5 % AH Workflow SS Calcium [Mass/Vol] 9.2 mg/dL Normal 8.7 - 10. 4 mg/dL AH ADM SS Chloride [Moles/Vol] 110 mmol/L Normal 98 - 11 0 mEq/L AH ADM SS CO2 [Moles/Vol] 24 mmol/L Normal 22 - 32 mEq/L AH ADM SS Creatinine [Mass/Vol] 0.97 mg/dL Normal 0.50 - 1.20 mg/dL AH ADM SS Comment on above: Interpretive Data: T esting performed on Penboost analyzer using enzymatic creatinine methodology. Electrolyte Balance [...] 33.9 G/dL Normal 32.0 - 36.0 G/dL Workflow SS MCV (RBC) [Entitic vol] 91.7 fL Normal 80.0 - 99.0 fL Workflow SS Monocytes (Bld) [#/Vol] 0.5 103/mcL Normal 0.1 - 1.4 10^3/mcL Workflow SS Monocytes/100 WBC (Bld) 7.9 % [...] 140 mmol/L Normal 136 - 145 mEq/L ADM SS Urea nitrogen [Mass/Vol] 18.0 mg/dL Normal 8.0 - 22.0 mg/dL ADM SS Urea nitrogen/Creatinine [Mass ratio] 18.6 ratio Normal 10.0 - 22.0 ratio AH ADM SS WBC (Bld) [#/Vol] 6.5 103/mcL Normal 4.5 - 10.8 10^3/mcL Workflow SS LABORATORYOrdered By: Nenita Luna on [...] 01-26-2024 Cholesterol [Mass/Vol] 119 mg/dL Normal 50-199 [facility] Comment on above: Result Comment: Chol esterol Reference Interval: Less than 200 Desirable 200-239 Borderline high risk 240 and above High risk Performed By: #### A DIFF, CBC, GFR, ANEU, BMP, MG #### [address] [address] Cholesterol in HDL [Mass/Vol] 40 mg/dL Normal 40-59 [facility] Comment on above: Performed By: #### A DIFF, CBC, GFR, ANEU, BMP, MG #### [address] [address] Cholesterol in LDL [Mass/Vol] 59 mg/dL Normal 0-129 [facility] Comment on above: Performed By: #### A DIFF, CBC, GFR, ANEU, BMP, MG #### [address] [address] Triglyceride [Mass/Vol] 99 mg/dL Normal 3-149 [facility] Comment on above: Performed By: #### A DIFF, CBC, GFR, ANEU, BMP, MG #### [address] [address] MGon 01-26-2024 Magnesium [Mass/Vol] 2.0 mg/dL Normal 1.6-2.4 [facility] Comment on above: Performed By: #### A DIFF, CBC, GFR, ANEU, BMP, MG #### [address] [address] .Auto Diffon 01-25-2024 Basophil, Absolute 0.0 10 3/mcL Normal 0.0-0.3 [facility] Comment on above: Performed By: #### M G, CMP, GFR, CBC, PBNP, ANEU, ADIFF, TSH, TROPHS #### [address] [address] Basophils/100 WBC (Bld) 0.6 % Normal 0.0-2.5 [facility] Comment on above: Performed By: #### M G, CMP, GFR, CBC, PBNP, ANEU, ADIFF, TSH, TROPHS #### [address] [address] Eosinophil, Absolute 0.1 10 3/mcL Normal 0.0-0.7 [facility] Comment on above: Performed By: #### M G, CMP, GFR, CBC, PBNP, ANEU, ADIFF, TSH, TROPHS #### [address] [address] Eosinophils/100 WBC (Bld) 2.2 % Normal 0.0-6.0 [facility] Comment on above: Performed By: #### M G, CMP, GFR, CBC, PBNP, ANEU, ADIFF, TSH, TROPHS #### [address] [address] Lymphocyte, Absolute 1.4 10 3/mcL Normal 0.9-4.3 [facility] Comment on above: Performed By: #### M G, CMP, GFR, CBC, PBNP, ANEU, ADIFF, TSH, TROPHS #### [address] [address] Lymphocytes/100 WBC (Bld) 21.0 % Normal 20.0-40.0 [facility] Comment on above: Performed By: #### M G, CMP, GFR, CBC, PBNP, ANEU, ADIFF, TSH, TROPHS #### [address] [address] Monocyte, Absolute 0.5 10 3/mcL Normal 0.1-1.4 [facility] Comment on above: Performed By: #### M G, CMP, GFR, CBC, PBNP, ANEU, ADIFF, TSH, TROPHS #### [address] [address] Monocytes/100 WBC (Bld) 7.5 % Normal 2.0-13.0 [facility] Comment on above: Performed By: #### M G, CMP, GFR, CBC, PBNP, ANEU, ADIFF, TSH, TROPHS #### [address] [address] Neutrophils/100 WBC (Bld) 68.7 % Normal 50.0-75.0 [facility] Comment on above: Performed By: #### M G, CMP, GFR, CBC, PBNP, ANEU, ADIFF, TSH, TROPHS #### [address] [address] .GFRon 01-25-2024 GFR >60 Normal [facility] Comment on above: Result Comment: [...] DIFF, CBC, GFR, ANEU, BMP, MG #### [address] [address] GFR Non- >60 Normal [facility] Comment on above: Result Comment: GFR [...] DIFF, CBC, GFR, ANEU, BMP, MG #### [address] [address] .NEUABSon 01-25-2024 Neutrophil, Absolute 4.6 10 3/mcL Normal 2.3-8.1 [facility] Comment on above: Performed By: #### A DIFF, CBC, GFR, ANEU, BMP, MG #### [address] [address] 12 Lead EKGon 01-25-2024 12 Lead EKG [facility] Cardi[facility] Services [address] [place] [address] 12 Lead EKG 01/24/24 1715 MR#: [id number] Acct: [id number] Name: KALINA RUDD Rep #: [id number] : 1940 83 From: Meche Sutton MD [...] ECG Confirmed by RADHA TERRAZAS, BARBARA ([id number]), film and video editor EMILY MANTILLA ([id number]) on 01/28/2024 1:38:33 PM Referred By: Confirmed By: BARBARA SUTTON MD 01/28/24 1338 Date Meche Sutton MD CC: Dr. Karen Resendiz MD; Dr. Mejia Shah DO; Chetan Nick DO Signed Normal [facility] CBCon 01-25-2024 Erythrocyte distribution width (RBC) [Ratio] 13.6 % Normal 11.5-15.5 [facility] Comment on above: Performed By: #### M G, CMP, GFR, CBC, PBNP, ANEU, ADIFF, TSH, TROPHS #### [address] [address] Hematocrit (Bld) [Volume fraction] 37.9 % Normal 34.0-46.0 [facility] Comment on above: Performed By: #### M G, CMP, GFR, CBC, PBNP, ANEU, ADIFF, TSH, TROPHS #### [address] [address] Hgb 12.7 G/dL Normal 12.0-16.0 [facility] Comment on above: Performed By: #### M G, CMP, GFR, CBC, PBNP, ANEU, ADIFF, TSH, TROPHS #### [place] [address] MCH (RBC) [Entitic mass] 31.0 pg Normal 27.0-33.0 [facility] Comment on above: Performed By: #### M G, CMP, GFR, CBC, PBNP, ANEU, ADIFF, TSH, TROPHS #### [place] [id number] MCHC 33.6 G/dL Normal 32.0-36.0 [facility] Comment on above: Performed By: #### M G, CMP, GFR, CBC, PBNP, ANEU, ADIFF, TSH, TROPHS #### [place] [address] MCV (RBC) [Entitic vol] 92.2 fL Normal 80.0-99.0 [facility] Comment on above: Performed By: #### M G, CMP, GFR, CBC, PBNP, ANEU, ADIFF, TSH, TROPHS #### [place] [address] Platelet 293 10 3/mcL Normal 150-450 [facility] Comment on above: Performed By: #### M G, CMP, GFR, CBC, PBNP, ANEU, ADIFF, TSH, TROPHS #### [place] [address] Platelet mean volume (Bld) [Entitic vol] 7.6 fL Normal 6.6-10.5 [facility] Comment on above: Performed By: #### M G, CMP, GFR, CBC, PBNP, ANEU, ADIFF, TSH, TROPHS #### [place] [address] RBC 4.11 10 6/mcL Normal 4.10-5.30 [facility] Comment on above: Performed By: #### M G, CMP, GFR, CBC, PBNP, ANEU, ADIFF, TSH, TROPHS #### [place] [address] WBC 6.7 10 3/mcL Normal 4.5-10.8 [facility] Comment on above: Performed By: #### M G, CMP, GFR, CBC, PBNP, ANEU, ADIFF, TSH, TROPHS #### [address] [address] CMPon 01-25-2024 Albumin Level 3.1 G/dL Low 3.2-4.8 [facility] Comment on above: Performed By: #### A DIFF, CBC, GFR, ANEU, BMP, MG #### [place] [id number] Albumin/Globulin [Mass ratio] 0.8 {ratio} Low 0.9-1.6 [facility] Comment on above: Performed By: #### A DIFF, CBC, GFR, ANEU, BMP, MG #### [address] [address] ALP [Catalytic activity/Vol] 98 U/L Normal 38-126 [facility] Comment on above: Performed By: #### A DIFF, CBC, GFR, ANEU, BMP, MG #### [place] [id number] ALT [Catalytic activity/Vol] 10 U/L Normal 10-49 [facility] Comment on above: Performed By: #### A DIFF, CBC, GFR, ANEU, BMP, MG #### [address] [address] AST [Catalytic activity/Vol] 15 U/L Normal 8-34 [facility] Comment on above: Performed By: #### A DIFF, CBC, GFR, ANEU, BMP, MG #### [place] [id number] Bili Total 0.90 mg/dL Normal 0.20-1.20 [facility] Comment on above: Result Comment: Use of this assay is not recommended for patients undergoing treatment with eltrombopag due to the potential for falsely elevated results. Performed By: #### A DIFF, CBC, GFR, ANEU, BMP, MG #### [place] [id number] BUN/Creatinine Ratio 16.7 ratio Normal 10.0-22.0 [facility] Comment on above: Performed By: #### A DIFF, CBC, GFR, ANEU, BMP, MG #### [address] [address] Calcium [Mass/Vol] 9.2 mg/dL Normal 8.7-10.4 [facility] Comment on above: Performed By: #### A DIFF, CBC, GFR, ANEU, BMP, MG #### [place] [id number] Chloride [Moles/Vol] 110 mmol/L Normal 98-110 [facility] Comment on above: Performed By: #### A DIFF, CBC, GFR, ANEU, BMP, MG #### [place] [id number] CO2 [Moles/Vol] 22 mmol/L Normal 22-32 [facility] Comment on above: Performed By: #### A DIFF, CBC, GFR, ANEU, BMP, MG #### [place] [address] Creatinine [Mass/Vol] 0.72 mg/dL Normal 0.50-1.20 [facility] Comment on above: Result Comment: Test ing performed on Penboost analyzer using enzymatic creatinine methodology. Performed By: #### A DIFF, CBC, GFR, ANEU, BMP, MG #### [place] [address] Electrolyte Balance 9.0 mEq/L Normal 4.0-15.0 [facility] Comment on above: Performed By: #### A DIFF, CBC, GFR, ANEU, BMP, MG #### [address] [address] Globulin 3.8 G/dL Normal 1.5-3.8 [facility] Comment on above: Performed By: #### A DIFF, CBC, GFR, ANEU, BMP, MG #### [place] [id number] Glucose [Mass/Vol] 84 mg/dL Normal 82-115 [facility] Comment on above: Performed By: #### A DIFF, CBC, GFR, ANEU, BMP, MG #### [address] [address] Potassium [Moles/Vol] 3.6 mmol/L Normal 3.5-5.0 [facility] Comment on above: Performed By: #### A DIFF, CBC, GFR, ANEU, BMP, MG #### [address] [address] Sodium [Moles/Vol] 141 mmol/L Normal 136-145 [facility] Comment on above: Performed By: #### A DIFF, CBC, GFR, ANEU, BMP, MG #### [address] [address] Total Protein 6.9 G/dL Normal 5.7-8.2 [facility] Comment on above: Performed By: #### A DIFF, CBC, GFR, ANEU, BMP, MG #### [address] [address] Urea nitrogen [Mass/Vol] 12.0 mg/dL Normal 8.0-22.0 [facility] Comment on above: Performed By: #### A DIFF, CBC, GFR, ANEU, BMP, MG #### [address] [address] LABORATORYOrdered By: SYSTEM SYSTEM on 01-25-2024 Troponin I.cardiac DL <= 0.01 ng/mL [Mass/Vol] 78 ng/L High 0 - 34 ng/L ADM Comment on above: Interpretive Data: High Sensitive Troponin I Reference Ranges: Female: 0-34 ng/L Male: 0-54 ng/L Testing performed on [employer] IM analyzer using direct chemiluminescent technology. Troponin I.cardiac DL <= 0.01 ng/mL [Mass/Vol] 120 ng/L High 0 - 34 ng/L ADM Comment on above: Interpretive Data: High Sensitive Troponin I Reference Ranges: Female: 0-34 ng/L Male: 0-54 ng/L Testing performed on [employer] IM analyzer using direct chemiluminescent technology. Albumin BCP dye [Mass/Vol] 3.1 G/dL Low 3.2 - 4.8 G/dL ADM SS Albumin/Globulin [Mass ratio] 0.8 {ratio} Low 0.9 - 1.6 ratio AH ADM SS ALP [Catalytic activity/Vol] 98 U/L Normal 38 - 126 U/L AH ADM SS ALT No additional P-5'-P [Catalytic activity/Vol] 10 U/L Normal 10 - 49 U/L AH ADM SS AST [Catalytic activity/Vol] 15 U/L Normal 8 - 34 U/L AH ADM SS Basophils (Bld) [#/Vol] 0.0 103/mcL Normal 0.0 - 0.3 10^3/mcL AH Workflow SS Basophils/100 WBC (Bld) 0.6 % [...] above: Interpretive Data: T esting performed on Penboost analyzer using enzymatic creatinine methodology. Electrolyte Balance [...] 27.0 - 33.0 pg Workflow SS MCHC 33.6 G/dL Normal 32.0 - 36.0 G/dL Workflow SS MCV (RBC) [Entitic vol] 92.2 fL Normal 80.0 - 99.0 fL AH Workflow SS Monocytes (Bld) [#/Vol] 0.5 103/mcL Normal 0.1 - 1.4 10^3/mcL Workflow SS Monocytes/100 WBC (Bld) 7.5 % Normal 2.0 - 13.0 % Workflow SS Natriuretic peptide.B prohormone N-Terminal IA [Mass/Vol] 1874 pg/mL High 0 - 1800 pg/mL ADM SS Neutrophils (Bld) [#/Vol] 4.6 103/mcL Normal 2.3 - 8.1 10^3/mcL Workflow SS Neutrophils/100 WBC (Bld) 68.7 % Normal 50.0 - 75.0 % Workflow SS Platelet mean volume (Bld) [Entitic vol] 7.6 fL Normal 6.6 - 10.5 fL Workflow SS Platelets (Bld) [#/Vol] 293 103/mcL Normal 150 - 450 10^3/mcL Workflow SS Potassium [Moles/Vol] 3.6 mmol/L Normal 3.5 - 5.0 mEq/L ADM SS Protein [Mass/Vol] 6.9 G/dL Normal 5.7 - 8.2 G/dL ADM SS RBC (Bld) [#/Vol] 4.11 106/mcL Normal 4.10 - 5.3 0 10^6/mcL Workflow SS Sodium [Moles/Vol] 141 mmol/L Normal 136 - 145 mEq/L ADM SS Troponin I.cardiac DL <= 0.01 ng/mL [Mass/Vol] 143 ng/L High 0 - 34 ng/L ADM SS Comment on above: Interpretive Data: High Sensitive Troponin I Reference Ranges: Female: 0-34 ng/L Male: 0-54 ng/L Testing performed on [employer] analyzer using direct chemiluminescent technology. TSH Qn 4.449 mIU/mL Normal 0.550 - 4.780 mIU/mL ADM SS Urea nitrogen [Mass/Vol] 12.0 mg/dL Normal 8.0 - 22.0 mg/dL ADM SS Urea nitrogen/Creatinine [Mass ratio] 16.7 ratio Normal 10.0 - 22.0 ratio AH ADM SS WBC (Bld) [#/Vol] 6.7 103/mcL Normal 4.5 - 10.8 10^3/mcL AH Workflow SS MGon 01-25-2024 Magnesium [Mass/Vol] 2.0 mg/dL Normal 1.6-2.4 [facility] Comment on above: Performed By: #### A DIFF, CBC, GFR, ANEU, BMP, MG #### [place] [address] PBNPon 01-25-2024 Natriuretic peptide B (Bld) [Mass/Vol] 1874 pg/mL High 0-1800 [facility] Comment on above: Performed By: #### A DIFF, CBC, GFR, ANEU, BMP, MG #### [address] 01-25-2024 High Sensitivity Troponin I 78 ng/L High [address] [place] [address] MAIN Comment on above: Result Comment: High Sensitive Troponin I Reference Ranges: Female: 0-34 ng/L Male: 0-54 ng/L Testing performed on [employer] IM analyzer using direct chemiluminescent technology. Performed By: #### A DIFF, CBC, GFR, ANEU, BMP, MG #### [place] [address] High Sensitivity Troponin I 120 ng/L [address] MAIN Comment on above: Result Comment: High Sensitive Troponin I Reference Ranges: Female: 0-34 ng/L Male: 0-54 ng/L Testing performed on [facility] IM analyzer using direct chemiluminescent technology. Performed By: #### A DIFF, CBC, GFR, ANEU, BMP, MG #### [place] [address] High Sensitivity Troponin I 143 ng/L [address] MAIN Comment on above: Result Comment: High Sensitive Troponin I Reference Ranges: Female: 0-34 ng/L Male: 0-54 ng/L Testing performed on [employer] IM analyzer using direct chemiluminescent technology. Performed By: #### A DIFF, CBC, GFR, ANEU, BMP, MG #### [place] [address] TSH 01-25-2024 TSH 4.449 mIU/mL Normal 0.550-4.780 [facility] Comment on above: Performed By: #### A DIFF, CBC, GFR, ANEU, BMP, MG #### [place] [id number] 12 Lead EKGon 01-24-2024 12 Lead EKG [facility] Cardiovascular Services [address] [place] [address] 12 Lead EKG 01/24/24 1013 MR#: [id number] Acct: [id number] Name: KALINA RUDD Rep #: [id number] : 1940 83 From: Meche Sutton MD [...] Abnormal ECG Confirmed by RADHA TERRAZAS, BARBARA ([id number]), film and video editor EMILY MANTILLA ([id number]) on 01/28/2024 1:38:22 PM Referred By: TB Confirmed By: BARBARA SUTTON MD 01/28/24 1338 Date Meche Sutton MD CC: Dr. Karen Resendiz MD; Dr. Mejia Shah DO Signed Normal [facility] 12 Lead EKG [facility] Cardiovascular Services [address] [place] [address] 12 Lead EKG 01/25/24 0026 MR#: [id number] Acct: [id number] Name: TOBINKALINA M Rep #: [id number] : 1940 83 From: Valdemar Kimble MD [...] Abnormal ECG Confirmed by VALDEMAR KIMBLE MD ([id number]), film and video editor EMILY MANTILLA ([id number]) on 01/28/2024 6:06:18 AM Referred By: ANDES Confirmed By: VALDEMAR KIMBLE MD 01/28/24 0606 Date Valdemar Kimble MD CC: Dr. Karen Resendiz MD; Dr. Mejia Shah DO Signed Normal [facility] Basic Metabolic Profile (BMP )on 01-24-2024 BUN/CRE 22.3 RATIO High 10-20 [facility] Comment on above: Order Comment: 1Y Performed By: #### L 501.9520, L500.2500, L503.7505, L100.0100 #### [facility] Laboratory [address] [place], [address] CA,Total 9.3 mg/dL Normal 8.5-10.1 [facility] Comment on above: Order Comment: 1Y Performed By: #### L 501.9520, L500.2500, L503.7505, L100.0100 #### [facility] [address] [place], [address] Chloride [Moles/Vol] 110 mmol/L High 98-107 [facility] Comment on above: Order Comment: 1Y Performed By: #### L 501.9520, L500.2500, L503.7505, L100.0100 #### [facility] [address] [place], [address] CO2 [Moles/Vol] 23.0 mmol/L Normal 21.0-32.0 [facility] Comment on above: Order Comment: 1Y Performed By: #### L 501.9520, L500.2500, L503.7505, L100.0100 #### [facility] [address] [place], [address] Creatinine [Mass/Vol] 0.85 mg/dL Normal 0.55-1.02 [facility] Comment on above: Order Comment: 1Y Result Comment: The validity of the calculated GFR GFRAA in patients over 70 years has not been determined. Clinical correlation is essential. Performed By: #### L 501.9520, L500.2500, L503.7505, L100.0100 #### [facility] [address] [place], [address] ECRCL 44.00 ml/min Normal [facility] Comment on above: Order Comment: 1Y Performed By: #### L 501.9520, L500.2500, L503.7505, L100.0100 #### [facility] [address] [place], [address] EST GFR - AA 82 mL/min Normal >60 [facility] Comment on above: Order Comment: 1Y Result Comment: Afri can Maldivian GFR Calc Performed By: #### L 501.9520, L500.2500, L503.7505, L100.0100 #### [facility] [address] [place], [address] GAP 6 Normal 5-15 [facility] Comment on above: Order Comment: 1Y Performed By: #### L 501.9520, L500.2500, L503.7505, L100.0100 #### [facility] [address] [place], [address] GFR/1.73 sq M.predicted among non-blacks MDRD (S/P/Bld) [Vol rate/Area] 68 mL/min/{1.73_m2} Normal >60 [facility] Comment on above: Order Comment: 1Y Result Comment: Non- GFR Calc Performed By: #### L 501.9520, L500.2500, L503.7505, L100.0100 #### [facility] [address] [place], [address] Glucose [Mass/Vol] 116 mg/dL High 74-106 [facility] Comment on above: Order Comment: 1Y Result Comment: Fast ing Glucose result from 100 to 125 mg/dL suggests IMPAIRED HOMEOSTASIS per A.D.A. criteria. Performed By: #### L 501.9520, L500.2500, L503.7505, L100.0100 #### [facility] [address] [place], [address] Potassium [Moles/Vol] 3.9 mmol/L Normal 3.5-5.1 [facility] Comment on above: Order Comment: 1Y Result Comment: Slig ht Hemolysis, Result may be falsely increased. Performed By: #### L 501.9520, L500.2500, L503.7505, L100.0100 #### [facility] [address] [place], [address] Sodium [Moles/Vol] 139 mmol/L Normal 136-145 [facility] Comment on above: Order Comment: 1Y Performed By: #### L 501.9520, L500.2500, L503.7505, L100.0100 #### [facility] [address] [place], [address] Urea nitrogen [Mass/Vol] 19 mg/dL High 7-18 [facility] Comment on above: Order Comment: 1Y Performed By: #### L 501.9520, L500.2500, L503.7505, L100.0100 #### [facility] [address] [place], [address] CBC W/Diff, Automatedon 12- Absolute Lymph 1.07 X10 3/uL Normal 0.83-4.51 [facility] Comment on above: Performed By: #### L 501.9520, L500.2500, L503.7505, L100.0100 #### [facility] [address] [place], [address] Absolute Neut 6.0 X10 3/uL Normal 2.0-7.7 [facility] Comment on above: Performed By: #### L 501.9520, L500.2500, L503.7505, L100.0100 #### [facility] [address] [place], [address] Basophils/100 WBC (Bld) 0.6 % Normal 0-1 [facility] Comment on above: Performed By: #### L 501.9520, L500.2500, L503.7505, L100.0100 #### [facility] [address] [place], [address] Eosinophils/100 WBC (Bld) 1.4 % Normal 0-5 [facility] Comment on above: Performed By: #### L 501.9520, L500.2500, L503.7505, L100.0100 #### [facility] [address] [place], [address] Erythrocyte distribution width (RBC) [Ratio] 13.0 % Normal 11.6-14.6 [facility] Comment on above: Performed By: #### L 501.9520, L500.2500, L503.7505, L100.0100 #### [facility] [address] [place], [address] Hematocrit (Bld) [Volume fraction] 40.3 % Normal 37-47 [facility] Comment on above: Performed By: #### L 501.9520, L500.2500, L503.7505, L100.0100 #### [facility] [address] [place], [address] Hemoglobin (Bld) [Mass/Vol] 13.3 g/dL Normal 12.0-15.0 [facility] Comment on above: Performed By: #### L 501.9520, L500.2500, L503.7505, L100.0100 #### [facility] [address] [place], [address] IG% 0.500 Normal 0.0-0.9 [facility] Comment on above: Result Comment: IG% - Immature Granulocytes (promyelocytes, myelocytes and metamyelocytes) > 1% indicates that a LEFT SHIFT is Present. Performed By: #### L 501.9520, L500.2500, L503.7505, L100.0100 #### [facility] [facility] [address] [place], [address] Lymphocytes/100 WBC (Bld) 13.6 % Low 19-41 [facility] Comment on above: Performed By: #### L 501.9520, L500.2500, L503.7505, L100.0100 #### [facility] [address] [place], [address] MCH (RBC) [Entitic mass] 30.3 pg Normal 27.0-32.0 [facility] Comment on above: Performed By: #### L 501.9520, L500.2500, L503.7505, L100.0100 #### [facility] [address] [place], [address] MCHC (RBC) [Mass/Vol] 33.0 g/dL Normal 32-36 [facility] Comment on above: Performed By: #### L 501.9520, L500.2500, L503.7505, L100.0100 #### [facility] [address] [place], [address] MCV (RBC) [Entitic vol] 91.8 fL Normal 81-99 [facility] Comment on above: Performed By: #### L 501.9520, L500.2500, L503.7505, L100.0100 #### [facility] [address] [place], [address] Monocytes/100 WBC (Bld) 7.0 % Normal 0-10 [facility] Comment on above: Performed By: #### L 501.9520, L500.2500, L503.7505, L100.0100 #### [facility] [address] [place], [address] Neutrophils/100 WBC (Bld) 76.9 % High 47-70 [facility] Comment on above: Performed By: #### L 501.9520, L500.2500, L503.7505, L100.0100 #### [facility] [address] [place], [address] Nucleated RBC (Bld) [#/Vol] 0 10*3/uL Normal 0-5 [facility] Comment on above: Performed By: #### L 501.9520, L500.2500, L503.7505, L100.0100 #### [facility] [address] [place], [address] Platelet mean volume (Bld) [Entitic vol] 9.4 fL Normal 6.2-12.0 [facility] Comment on above: Performed By: #### L 501.9520, L500.2500, L503.7505, L100.0100 #### [facility] [address] [place], [address] Platelets (Bld) [#/Vol] 318 10*3/uL Normal 150-450 [facility] Comment on above: Performed By: #### L 501.9520, L500.2500, L503.7505, L100.0100 #### [facility] [address] [place], [address] RBC (Bld) [#/Vol] 4.39 10*6/uL Normal 4.2-5.4 [facility] Comment on above: Performed By: #### L 501.9520, L500.2500, L503.7505, L100.0100 #### [facility] [address] [place], [address] RDW SD 43.7 fl Normal 35.1-43.9 [facility] Comment on above: Performed By: #### L 501.9520, L500.2500, L503.7505, L100.0100 #### [facility] [address] [place], [address] WBC (Bld) [#/Vol] 7.9 10*3/uL Normal 4.4-11.0 [facility] Comment on above: Performed By: #### L 501.9520, L500.2500, L503.7505, L100.0100 #### [facility] [address] [place], [address] CTA Chest W/WO Contraston CTA Chest W/WO Contrast [facility] Imaging Services [address] [place] [address] CTA Chest W/WO Contrast MR#: [id number] Acct: [id number] Name: KALINA RUDD Rep #: [id number] : 1940 F 83 From: Dar strong MD PCP: Dr. Karen Resendiz MD Status: [facility] ER Study: CTA Chest W/WO Contrast Date of Exam: 01/24/24 Exam# [id number] Ordering Dr: Mejia Shah DO [id number] STUDY: CTA CHEST REASON FOR EXAM: Female, [...] Karen Resendiz MD; Dr. Mejia Shah DO Payroll Professional: Signed Normal [facility] Chest PA and Lateralon 01-23 Chest PA and Lateral [facility] Imaging Services [address] [place] [address] Chest PA and Lateral MR#: [id number] Acct: [id number] Name: KALINA RUDD Rep #: [id number] : 1940 F 83 From: Taisha Arora MD PCP: Dr. Karen Resendiz MD Status: REG ER Study: Chest PA and Lateral Date of Exam: 01/24/24 Exam# [id number] Ordering Dr: Mejia Shah DO [id number] INDICATION: chest pain EXAMINATION/TECHNIQUE: X-RAY - XR [...] Signed: Taisha Arora MD at 11:22 EST Reading Location ID and State: [facility] / [place] Tel , Service support , CC: Dr. Karen Resendiz MD; Dr. Mejia Shah DO Payroll Professional: Signed Normal [facility] D-Dimer Quantitative (DVT/PE )on 01-24-2024 D-DIMER QUANT 0.72 FEU/ug/m Invalid Interpretation Code 0.27-0.49 [facility] Comment on above: Result Comment: D-Di kimberli ELEVATED (>0.49): Additional studies and clinical assessments are indicated to conclude diagnosis of: Deep Vein Thrombosis (DVT) or Pulmonary Embolism (PE) CRITICAL VALUE CALLED TO GERTRUDE 01/24/24 1747 Tasneem Delaney. RESULTS READ BACK BY SAME. Performed By: #### L 501.9520, L500.2500, L503.7505, L100.0100 #### [facility] Laboratory [address] [place], [address] Emergency Department Summary on 01-24-2024 Emergency Department Summary [facility] Medical Records Department [address] [place] [address] Emergency Department Summary 01/24/24 MR#: [id number] Acct: [id number] Name: KALINA RUDD Rep #: [id number] : 1940 83 From: Mejia Shah DO [...] is still currently awaiting a bed at [facility]. 01/24/24 1715 Cosigner Signature (if applicable): cc: [...] CAD status post recent stent placement at [facility] who presented to the emergency department the chief complaint of elevated blood pressure. Patient states that she was originally here was ultimately transferred to [facility] where there was discussion for PCI versus [...] this point time feels that her baseline. [facility] Medical History STEMI (ST elevation myocardial infarction) [...] Never smoker (more content not included)... Normal [facility] L501.4020on 01-24-2024 TROPONIN-I HS 250 pg/mL Invalid Interpretation Code 3.0-54.0 [facility] Comment on above: Order Comment: 'TROP ' Serial specimen #1, #2 or #3: 3 Result Comment: Crit ical Result(s) Called at: 17:45:08 01/24/2024 by: АНДРЕЙ SAUCEDA. Results read back by Norberto Monk Please Note: New Test Units and Gender Specific Reference Ranges. For more information see Policy Stat Procedure [place] High Sensitivity Troponin (TNIH) and attachments. Performed By: #### L 501.4020 #### [facility] Laboratory [address] [place], [address] TROPONIN-I HS 288 pg/mL Invalid Interpretation Code 3.0-54.0 [facility] Comment on above: Result Comment: Crit ical Result(s) Called at: 13:50:45 01/24/2024 by: Young Mckeon RN (ER). Results read back by same. Please Note: New Test Units and Gender Specific Reference Ranges. For more information see Policy Stat Procedure [place] High Sensitivity Troponin (TNIH) and attachments. Performed By: #### L 501.9520, L500.2500, L503.7505, L100.0100 #### [facility] [address] [place], [address] L501.5425on 01-24-2024 TROPONIN-I HS 334 pg/mL Invalid Interpretation Code 3.0-54.0 [facility] Comment on above: Order Comment: 1Y Result Comment: Crit ical Result(s) Called at: 11:38:26 01/24/2024 by: Young Mckeon RN (ER). Results read back by same. Please Note: New Test Units and Gender Specific Reference Ranges. For more information see Policy Stat Procedure [place] High Sensitivity Troponin (TNIH) and attachments. Performed By: #### L 501.9520, L500.2500, L503.7505, L100.0100 #### [facility] [address] [place], [address] Magnesiumon 01-24-2024 Magnesium [Mass/Vol] 2.1 mg/dL Normal 1.6-2.6 [facility] Comment on above: Order Comment: 1Y Result Comment: Slig ht Hemolysis, Result may be falsely increased. Performed By: #### L 501.9520, L500.2500, L503.7505, L100.0100 #### [facility] [address] [place], [address] Partial Thromboplast Timeon 01-24-2024 aPTT Coag (Bld) [Time] 26.6 s Normal 24.1-36.2 [facility] Comment on above: Performed By: #### L 501.9520, L500.2500, L503.7505, L100.0100 #### [facility] [address] [place], [place], [address] Prothrombin Time w/INRon INR Coag (PPP) [Relative time] 1.1 {INR} Normal [facility] Comment on above: Performed By: #### L 501.9520, L500.2500, L503.7505, L100.0100 #### [facility] [address] [place], [address] PT Coag (PPP) [Time] 14.2 s Normal 11.7-14.9 [facility] Comment on above: Performed By: #### L 501.9520, L500.2500, L503.7505, L100.0100 #### [facility] [address] [place], [place], [address] [facility] (INTMWS) -- KALINA RUDD ([id number]) 1940 F T Date Time Provider Department 01/23/24 KAREN RESENDIZ INTWS During your visit today, we recorded the [...] patient that she has a prescription at [facility] if not able to locate. Reviewed care [...] Fully Assessed Reason for Visit: Patient Question [8190] Prescriptions as of 01/23/2024 - metoprolol succinate [...] ointment Actually gets compounded RX 0.07% through [facility] from [employer] to use twice weekly - [facility] probiotics--Yeast and Vaginal PH support probiotic. Probiotic [...] Status:Closed by ODESSA ACKERMAN on 01/23/24 Normal [facility] .Auto Diffon 01-20-2024 Basophil, Absolute 0.0 10 3/mcL Normal 0.0-0.3 [facility] Comment on above: Performed By: #### A DIFF, CBC, GFR, ANEU, BMP, MG #### [place] [address] Eosinophil, Absolute 0.0 10 3/mcL Normal 0.0-0.7 [facility] Comment on above: Performed By: #### A DIFF, CBC, GFR, ANEU, BMP, MG #### [place] [address] Lymphocyte, Absolute 1.0 10 3/mcL Normal 0.9-4.3 [facility] Comment on above: Performed By: #### A DIFF, CBC, GFR, ANEU, BMP, MG #### [place] [address] Monocyte, Absolute 1.0 10 3/mcL Normal 0.1-1.4 [facility] Comment on above: Performed By: #### A DIFF, CBC, GFR, ANEU, BMP, MG #### [place] [address] .Auto DiffOrdered By: SYSTEM SYSTEM on 01-20-2024 Basophils/100 WBC (Bld) 0.2 % Normal 0.0-2.[address] [facility] SS Comment on above: Performed By: #### A DIFF, CBC, GFR, ANEU, BMP, MG #### [facility] [address] [place], [place] [address] Eosinophils/100 WBC (Bld) 0.3 % Normal 0.0-6.0 [facility] Workflow SS Comment on above: Performed By: #### A DIFF, CBC, GFR, ANEU, BMP, MG #### [address] [address] Lymphocytes/100 WBC (Bld) 10.6 % Low 20.0-40.0 [facility] SS Comment on above: Performed By: #### A DIFF, CBC, GFR, ANEU, BMP, MG #### [address] [address] Monocytes/100 WBC (Bld) 10.3 % Normal 2.0-13.0 [facility] SS Comment on above: Performed By: #### A DIFF, CBC, GFR, ANEU, BMP, MG #### [address] [address] Neutrophils/100 WBC (Bld) 78.6 % High 50.0-75.0 [facility]flow SS Comment on above: Performed By: #### A DIFF, CBC, GFR, ANEU, BMP, MG #### [address] [address] .GFRon 01-20-2024 GFR >60 [facility] Comment on above: Result Comment: GFR [...] DIFF, CBC, GFR, ANEU, BMP, MG #### [address] [address] GFR Non- >60 [facility] Comment on above: Result Comment: [...] DIFF, CBC, GFR, ANEU, BMP, MG #### [address] [address] .NEUABSon 01-20-2024 Neutrophil, Absolute 7.6 10 3/mcL Normal 2.3-8.1 [facility] Comment on above: Performed By: #### A DIFF, CBC, GFR, ANEU, BMP, MG #### [address] [address] [id number] By: SYSTEM SYSTEM on 01-20-2024 Glucose [Mass/Vol] 103 mg/dL Normal [facility] Aut o Chem SS Comment on above: Interpretive Data: E stimated average glucose (eAG) is a calculated value from Hemoglobin A1C and is community health representative of the average blood glucose level in the last 2-3 month period. Normal range: less than 114 mg/dL Result Comment: Shara mated Average Glucose calculated by equation ((28.7xA1C)-46.7) Estimated average glucose (eAG) is a calculated value from Hemoglobin A1C and is community health representative of the average blood glucose level in the last 2-3 month period. Normal range: less than 114 mg/dL Performed By: #### A DIFF, CBC, GFR, ANEU, BMP, MG #### [address] [address] HbA1c (Bld) [Mass fraction] 5.2 % Normal 4.0-6.0 [facility] Auto Chem SS Comment on above: Performed By: #### A DIFF, CBC, GFR, ANEU, BMP, MG #### [address] [address] BMPon 01-20-2024 BUN/Creatinine Ratio 14.7 ratio Normal 10.0-22.0 [facility] Comment on above: Performed By: #### A DIFF, CBC, GFR, ANEU, BMP, MG #### [address] [address] BMPOrdered By: SYSTEM SYSTEM on 01-20-2024 Calcium [Mass/Vol] 9.0 mg/dL Normal 8.7-10.4 [facility] ADM SS Comment on above: Performed By: #### A DIFF, CBC, GFR, ANEU, BMP, MG #### [address] [address] Chloride [Moles/Vol] 107 mmol/L Normal 98-110 AH A DM SS Comment on above: Performed By: #### A DIFF, CBC, GFR, ANEU, BMP, MG #### [address] [address] CO2 [Moles/Vol] 24 mmol/L Normal 22-32 [facility] ADM SS Comment on above: Performed By: #### A DIFF, CBC, GFR, ANEU, BMP, MG #### [place] [id number] Creatinine [Mass/Vol] 0.75 mg/dL Normal 0.50-1.20 [facility] ADM SS Comment on above: Interpretive Data: T esting performed on [employer] CH analyzer using enzymatic creatinine methodology. Result Comment: Test ing performed on [employer] CH analyzer using enzymatic creatinine methodology. Performed By: #### A DIFF, CBC, GFR, ANEU, BMP, MG #### [place] [id number] Electrolyte Balance 7.0 mEq/L Normal 4.0-15.0 AH AD M SS Comment on above: Performed By: #### A DIFF, CBC, GFR, ANEU, BMP, MG #### [place] [id number] Glucose [Mass/Vol] 102 mg/dL Normal 82-115 [facility] ADM SS Comment on above: Performed By: #### A DIFF, CBC, GFR, ANEU, BMP, MG #### [place] [id number] Potassium [Moles/Vol] 3.9 mmol/L Normal 3.5-5.0 [facility] ADM SS Comment on above: Performed By: #### A DIFF, CBC, GFR, ANEU, BMP, MG #### [place] [address] Sodium [Moles/Vol] 138 mmol/L Normal 136-145 [facility] ADM SS Comment on above: Performed By: #### A DIFF, CBC, GFR, ANEU, BMP, MG #### [place] [address] Urea nitrogen [Mass/Vol] 11.0 mg/dL Normal 8.0-22.0 [facility] ADM SS Comment on above: Performed By: #### A DIFF, CBC, GFR, ANEU, BMP, MG #### [place] [address] CBCOrdered By: SYSTEM SYSTEM on 01-20-2024 Erythrocyte distribution width (RBC) [Ratio] 14.1 % Normal 11.5-15.5 [facility] Workflow SS Comment on above: Performed By: #### A DIFF, CBC, GFR, ANEU, BMP, MG #### [place] [address] Hematocrit (Bld) [Volume fraction] 36.6 % Normal 34.0-46.0 [facility] Workflow SS Comment on above: Performed By: #### A DIFF, CBC, GFR, ANEU, BMP, MG #### [place] [address] MCH (RBC) [Entitic mass] 31.1 pg Normal 27.0-33.0 [facility] Workflow SS Comment on above: Performed By: #### A DIFF, CBC, GFR, ANEU, BMP, MG #### [place] [address] MCHC 33.9 G/dL Normal 32.0-36.0 [facility] Workflow SS Comment on above: Performed By: #### A DIFF, CBC, GFR, ANEU, BMP, MG #### [place] [address] MCV (RBC) [Entitic vol] 91.6 fL Normal 80.0-99.0 [facility] Workflow SS Comment on above: Performed By: #### A DIFF, CBC, GFR, ANEU, BMP, MG #### [facility] [address] [place] [address] Platelet mean volume (Bld) [Entitic vol] 8.5 fL Normal 6.6-10.5 Workflow SS Comment on above: Performed By: #### A DIFF, CBC, GFR, ANEU, BMP, MG #### [place] [id number] [address] [place] [address] CBCon 01-20-2024 Hgb 12.4 G/dL Normal 12.0-16.0 [facility] Comment on above: Performed By: #### A DIFF, CBC, GFR, ANEU, BMP, MG #### [address] [address] Platelet 188 10 3/mcL Normal 150-450 [facility] Comment on above: Performed By: #### A DIFF, CBC, GFR, ANEU, BMP, MG #### [place] [address] RBC 3.99 10 6/mcL Low 4.10-5.30 [facility] Comment on above: Performed By: #### A DIFF, CBC, GFR, ANEU, BMP, MG #### [address] [address] WBC 9.6 10 3/mcL Normal 4.5-10.8 [facility] Comment on above: Performed By: #### A DIFF, CBC, GFR, ANEU, BMP, MG #### [address] [address] LABORATORYOrdered By: SYSTEM SYSTEM on 01-20-2024 Basophils [...] 1.0 103/mcL Normal 0.9 - 4.3 10^3/mcL [facility] Workflow SS Monocytes (Bld) [#/Vol] 1.0 103/mcL Normal 0.1 - 1.4 10^3/mcL [facility] Workflow SS Neutrophils (Bld) [#/Vol] 7.6 103/mcL Normal 2.3 - 8.1 10^3/mcL [facility] Workflow SS Platelets (Bld) [#/Vol] 188 103/mcL Normal 150 - 450 10^3/mcL [facility] Workflow SS RBC (Bld) [#/Vol] 3.99 106/mcL Low 4.10 - 5.3 0 10^6/mcL [facility] Workflow SS Urea nitrogen/Creatinine [Mass ratio] 14.7 ratio Normal 10.0 - 22.0 ratio AH ADM SS WBC (Bld) [#/Vol] 9.6 103/mcL Normal 4.5 - 10.8 10^3/mcL AH Workflow SS MGOrdered By: SYSTEM SYSTEM on 01-20-2024 Magnesium [Mass/Vol] 2.2 mg/dL Normal 1.6-2.4 AH A DM SS Comment on above: Performed By: #### A DIFF, CBC, GFR, ANEU, BMP, MG #### [address] [address] .Auto Diffon 01-19-2024 Basophil, Absolute 0.0 10 3/mcL Normal 0.0-0.3 [facility] Comment on above: Performed By: #### A DIFF, CBC, GFR, ANEU, BMP, MG #### [address] [address] Basophils/100 WBC (Bld) 0.2 % Normal 0.0-2.5 [facility] Comment on above: Performed By: #### A DIFF, CBC, GFR, ANEU, BMP, MG #### [address] [address] Eosinophil, Absolute 0.0 10 3/mcL Normal 0.0-0.7 [facility] Comment on above: Performed By: #### A DIFF, CBC, GFR, ANEU, BMP, MG #### [address] [address] Eosinophils/100 WBC (Bld) 0.1 % Normal 0.0-6.0 [facility] Comment on above: Performed By: #### A DIFF, CBC, GFR, ANEU, BMP, MG #### [address] [address] Lymphocyte, Absolute 2.1 10 3/mcL Normal 0.9-4.3 [facility] Comment on above: Performed By: #### A DIFF, CBC, GFR, ANEU, BMP, MG #### [address] [address] Lymphocytes/100 WBC (Bld) 17.4 % Low 20.0-40.0 [facility] Comment on above: Performed By: #### A DIFF, CBC, GFR, ANEU, BMP, MG #### [address] [address] Monocyte, Absolute 1.0 10 3/mcL Normal 0.1-1.4 [facility] Comment on above: Performed By: #### A DIFF, CBC, GFR, ANEU, BMP, MG #### [address] [address] Monocytes/100 WBC (Bld) 8.2 % Normal 2.0-13.0 [facility] Comment on above: Performed By: #### A DIFF, CBC, GFR, ANEU, BMP, MG #### [address] [address] Neutrophils/100 WBC (Bld) 74.1 % Normal 50.0-75.0 [facility] Comment on above: Performed By: #### A DIFF, CBC, GFR, ANEU, BMP, MG #### [address] [address] .GFRon 01-19-2024 GFR >60 Normal [facility] Comment on above: Result Comment: [...] DIFF, CBC, GFR, ANEU, BMP, MG #### [address] [address] GFR Non- 58 ml/min/1.73sqm Normal [facility] Comment on above: Result Comment: GFR [...] DIFF, CBC, GFR, ANEU, BMP, MG #### [address] [address] .NEUABSon 01-19-2024 Neutrophil, Absolute 8.8 10 3/mcL High 2.3-8.1 [facility] Comment on above: Performed By: #### A DIFF, CBC, GFR, ANEU, BMP, MG #### [address] [address] APTTon 01-19-2024 aPTT Coag (Bld) [Time] 51.4 s High 25.0-35.0 [facility] Comment on above: Result Comment: For Heparin anticoagulation therapy, the recommended therapeutic range is: 54-77 seconds (APTT Correlation with Anti-Xa therapeutic range of 0.3-0.7 units/ml). PLEASE REFERENCE THE PHARMACY PROTOCOL FOR DOSING. Performed By: #### A DIFF, CBC, GFR, ANEU, BMP, MG #### [address] [address] aPTT Coag (Bld) [Time] 47.6 s High 25.0-35.0 [facility] Comment on above: Result Comment: For Heparin anticoagulation therapy, the recommended therapeutic range is: 54-77 seconds (APTT Correlation with Anti-Xa therapeutic range of 0.3-0.7 units/ml). PLEASE REFERENCE THE PHARMACY PROTOCOL FOR DOSING. Performed By: #### A DIFF, CBC, GFR, ANEU, BMP, MG #### [address] [address] aPTT Coag (Bld) [Time] 49.7 s High 25.0-35.0 [facility] Comment on above: Result Comment: Spec imen hemolyzed. Results may be affected. For Heparin anticoagulation therapy, the recommended therapeutic range is: 54-77 seconds (APTT Correlation with Anti-Xa therapeutic range of 0.3-0.7 units/ml). PLEASE REFERENCE THE PHARMACY PROTOCOL FOR DOSING. Performed By: #### A DIFF, CBC, GFR, ANEU, BMP, MG #### [address] [address] BMPon 01-19-2024 BUN/Creatinine Ratio 17.2 ratio Normal 10.0-22.0 [facility] Comment on above: Performed By: #### A DIFF, CBC, GFR, ANEU, BMP, MG #### [address] [address] Calcium [Mass/Vol] 9.4 mg/dL Normal 8.7-10.4 [facility] Comment on above: Performed By: #### A DIFF, CBC, GFR, ANEU, BMP, MG #### [place] [id number] Chloride [Moles/Vol] 103 mmol/L Normal 98-110 [facility] Comment on above: Performed By: #### A DIFF, CBC, GFR, ANEU, BMP, MG #### [address] [address] CO2 [Moles/Vol] 22 mmol/L Normal 22-32 [facility] Comment on above: Performed By: #### A DIFF, CBC, GFR, ANEU, BMP, MG #### [address] [address] Creatinine [Mass/Vol] 0.93 mg/dL Normal 0.50-1.20 [facility] Comment on above: Result Comment: Test ing performed on [employer] analyzer using enzymatic creatinine methodology. Performed By: #### A DIFF, CBC, GFR, ANEU, BMP, MG #### [address] [address] Electrolyte Balance 9.0 mEq/L Normal 4.0-15.0 [facility] Comment on above: Performed By: #### A DIFF, CBC, GFR, ANEU, BMP, MG #### [place] [address] Glucose [Mass/Vol] 143 mg/dL High 82-115 [facility] Comment on above: Performed By: #### A DIFF, CBC, GFR, ANEU, BMP, MG #### [place] [id number] Potassium [Moles/Vol] 3.2 mmol/L Low 3.5-5.0 [facility] Comment on above: Performed By: #### A DIFF, CBC, GFR, ANEU, BMP, MG #### [place] [id number] Sodium [Moles/Vol] 134 mmol/L Low 136-145 [facility] Comment on above: Performed By: #### A DIFF, CBC, GFR, ANEU, BMP, MG #### [place] [address] Urea nitrogen [Mass/Vol] 16.0 mg/dL Normal 8.0-22.0 [facility] Comment on above: Performed By: #### A DIFF, CBC, GFR, ANEU, BMP, MG #### [place] [address] CBCon 01-19-2024 Erythrocyte distribution width (RBC) [Ratio] 13.9 % Normal 11.5-15.5 [facility] Comment on above: Performed By: #### A DIFF, CBC, GFR, ANEU, BMP, MG #### [place] [address] Hematocrit (Bld) [Volume fraction] 35.5 % Normal 34.0-46.0 [facility] Comment on above: Performed By: #### A DIFF, CBC, GFR, ANEU, BMP, MG #### [place] [address] Hgb 12.0 G/dL Normal 12.0-16.0 [facility] Comment on above: Performed By: #### A DIFF, CBC, GFR, ANEU, BMP, MG #### [place] [id number] MCH (RBC) [Entitic mass] 30.7 pg Normal 27.0-33.0 [facility] [place] [facility] Comment on above: Performed By: #### A DIFF, CBC, GFR, ANEU, BMP, MG #### [place] [address] MCHC 33.7 G/dL Normal 32.0-36.0 [facility] [place] Comment on above: Performed By: #### A DIFF, CBC, GFR, ANEU, BMP, MG #### [place] [address] MCV (RBC) [Entitic vol] 90.9 fL Normal 80.0-99.0 [facility] Comment on above: Performed By: #### A DIFF, CBC, GFR, ANEU, BMP, MG #### [place] [address] Platelet 226 10 3/mcL Normal 150-450 [facility] [place] Comment on above: Performed By: #### A DIFF, CBC, GFR, ANEU, BMP, MG #### [place] [address] Platelet mean volume (Bld) [Entitic vol] 9.0 fL Normal 6.6-10.5 [facility] Comment on above: Performed By: #### A DIFF, CBC, GFR, ANEU, BMP, MG #### [place] [address] RBC 3.90 10 6/mcL Low 4.10-5.30 [facility] Comment on above: Performed By: #### A DIFF, CBC, GFR, ANEU, BMP, MG #### [place] [address] WBC 11.8 10 3/mcL High 4.5-10.8 [facility] Comment on above: Performed By: #### A DIFF, CBC, GFR, ANEU, BMP, MG #### [place] [address] LABORATORYOrdered By: SYSTEM SYSTEM on 01-19-2024 aPTT Coag (Bld) [Time] 51.4 s High 25.0 - 35.0 seconds AH [facility] SS Comment on above: Interpretive Data: F or Heparin anticoagulation therapy, the recommended therapeutic range is: 54-77 seconds (APTT Correlation with Anti-Xa therapeutic range of 0.3-0.7 units/ml). PLEASE REFERENCE THE PHARMACY PROTOCOL FOR DOSING. aPTT Coag (Bld) [Time] 47.6 s High 25.0 - 35.0 seconds [facility] Comment on above: Interpretive Data: F or [...] above: Interpretive Data: T esting performed on Penboost analyzer using enzymatic creatinine methodology. Electrolyte Balance [...] [Vol rate/Area] 58 ml/min/1.73sqm Invalid Interpretation Code ADM SS Comment [...] 33.7 G/dL Normal 32.0 - 36.0 G/dL AH Workflow SS MCV (RBC) [Entitic vol] 90.9 fL Normal 80.0 - 99.0 fL AH Workflow SS Monocytes (Bld) [#/Vol] 1.0 103/mcL Normal 0.1 - 1.4 10^3/mcL AH Workflow SS Monocytes/100 WBC (Bld) 8.2 % Normal 2.0 - 13.0 % AH Workflow SS Neutrophils (Bld) [#/Vol] 8.8 103/mcL High 2.3 - 8.1 10^3/mcL AH Workflow SS Neutrophils/100 WBC (Bld) 74.1 % Normal 50.0 - 75.0 % AH [...] 134 mmol/L Low 136 - 145 mEq/L AH ADM SS Urea nitrogen [Mass/Vol] 16.0 mg/dL Normal 8.0 - 22.0 mg/dL ADM SS Urea nitrogen/Creatinine [Mass ratio] 17.2 ratio Normal 10.0 - 22.0 ratio AH ADM SS WBC (Bld) [#/Vol] 11.8 103/mcL High 4.5 - 10.8 10^3/mcL Workflow SS aPTT Coag (Bld) [Time] 49.7 s High 25.0 - 35.0 seconds [facility] SS Comment on above: Result Comment: Spec imen hemolyzed. Results may be affected. Interpretive Data: F or Heparin anticoagulation therapy, the recommended therapeutic range is: 54-77 seconds (APTT Correlation with Anti-Xa therapeutic range of 0.3-0.7 units/ml). PLEASE REFERENCE THE PHARMACY PROTOCOL FOR DOSING. MGon 01-19-2024 Magnesium [Mass/Vol] 1.8 mg/dL Normal 1.6-2.4 [facility] Comment on above: Performed By: #### A DIFF, CBC, GFR, ANEU, BMP, MG #### [address] [address] .Auto Diffon 01-18-2024 Basophil, Absolute 0.0 10 3/mcL Normal 0.0-0.3 [facility] Comment on above: Performed By: #### A DIFF, CBC, GFR, ANEU, BMP, MG #### [place] [id number] Basophils/100 WBC (Bld) 0.2 % Normal 0.0-2.5 [facility] Comment on above: Performed By: #### A DIFF, CBC, GFR, ANEU, BMP, MG #### [address] [address] Eosinophil, Absolute 0.0 10 3/mcL Normal 0.0-0.7 [facility] Comment on above: Performed By: #### A DIFF, CBC, GFR, ANEU, BMP, MG #### [address] [address] Eosinophils/100 WBC (Bld) 0.0 % Normal 0.0-6.0 [facility] Comment on above: Performed By: #### A DIFF, CBC, GFR, ANEU, BMP, MG #### [place] [address] Lymphocyte, Absolute 0.6 10 3/mcL Low 0.9-4.3 [facility] Comment on above: Performed By: #### A DIFF, CBC, GFR, ANEU, BMP, MG #### [address] [address] Lymphocytes/100 WBC (Bld) 5.8 % Low 20.0-40.0 [facility] Comment on above: Performed By: #### A DIFF, CBC, GFR, ANEU, BMP, MG #### [place] [id number] Monocyte, Absolute 0.4 10 3/mcL Normal 0.1-1.4 [facility] Comment on above: Performed By: #### A DIFF, CBC, GFR, ANEU, BMP, MG #### [facility] [address] [place] [address] Monocytes/100 WBC (Bld) 3.7 % Normal 2.0-13.0 [facility] Comment on above: Performed By: #### A DIFF, CBC, GFR, ANEU, BMP, MG #### [place] [id number] [place] [address] Neutrophils/100 WBC (Bld) 90.3 % High 50.0-75.0 [facility] Comment on above: Performed By: #### A DIFF, CBC, GFR, ANEU, BMP, MG #### [address] [address] .GFRon 01-18-2024 GFR >60 Normal [facility] Comment on above: Result Comment: [...] DIFF, CBC, GFR, ANEU, BMP, MG #### [address] [address] GFR Non- >60 Normal [facility] Comment on above: Result Comment: GFR [...] DIFF, CBC, GFR, ANEU, BMP, MG #### [address] [address] .NEUABSon 01-18-2024 Neutrophil, Absolute 9.8 10 3/mcL High 2.3-8.1 [facility] Comment on above: Performed By: #### A DIFF, CBC, GFR, ANEU, BMP, MG #### [address] [address] 12 Lead EKGon 01-18-2024 12 Lead EKG [facility] Cardi[facility] Services [address] [place] [address] 12 Lead EKG 01/18/24 0045 MR#: [id number] Acct: [id number] Name: KALINA RUDD Rep #: [id number] : 1940 83 From: Valdemar Kimble MD [...] UNCONFIRMED Confirmed by CODY TERRAZAS, VALDEMAR ([id number]), film and video editor EMILY MANTILLA ([id number]) on 01/20/2024 6:10:01 AM Referred By: Cynthia Confirmed By: VALDEMAR KIMBLE MD 01/20/24 0610 Date Valdemar Kimble MD CC: Dr. Billy Wise MD; Dr. Karen Resendiz MD Signed Normal [facility] 01-18-2024 aPTT Coag (Bld) [Time] 86.9 s High 25.0-35.0 [facility] Comment on above: Result Comment: For Heparin anticoagulation therapy, the recommended therapeutic range is: 54-77 seconds (APTT Correlation with Anti-Xa therapeutic range of 0.3-0.7 units/ml). PLEASE REFERENCE THE PHARMACY PROTOCOL FOR DOSING. Performed By: #### A DIFF, CBC, GFR, ANEU, BMP, MG #### [address] [address] aPTT Coag (Bld) [Time] 58.6 s High 25.0-35.0 [facility] Comment on above: Result Comment: Spec imen hemolyzed. Results may be affected. For Heparin anticoagulation therapy, the recommended therapeutic range is: 54-77 seconds (APTT Correlation with Anti-Xa therapeutic range of 0.3-0.7 units/ml). PLEASE REFERENCE THE PHARMACY PROTOCOL FOR DOSING. Performed By: #### A DIFF, CBC, GFR, ANEU, BMP, MG #### [address] [address] aPTT Coag (Bld) [Time] 94.6 s High 25.0-35.0 [facility] Comment on above: Result Comment: For Heparin anticoagulation therapy, the recommended therapeutic range is: 54-77 seconds (APTT Correlation with Anti-Xa therapeutic range of 0.3-0.7 units/ml). PLEASE REFERENCE THE PHARMACY PROTOCOL FOR DOSING. Performed By: #### A DIFF, CBC, GFR, ANEU, BMP, MG #### [address] [address] aPTT Coag (Bld) [Time] 100.6 s High 25.0-35.0 [facility] Comment on above: Result Comment: For Heparin anticoagulation therapy, the recommended therapeutic range is: 54-77 seconds (APTT Correlation with Anti-Xa therapeutic range of 0.3-0.7 units/ml). PLEASE REFERENCE THE PHARMACY PROTOCOL FOR DOSING. Performed By: #### A DIFF, CBC, GFR, ANEU, BMP, MG #### [address] [address] BMPon 01-18-2024 BUN/Creatinine Ratio 25.6 ratio High 10.0-22.0 [facility] Comment on above: Performed By: #### A DIFF, CBC, GFR, ANEU, BMP, MG #### [address] [address] Calcium [Mass/Vol] 9.9 mg/dL Normal 8.7-10.4 [facility] Comment on above: Performed By: #### A DIFF, CBC, GFR, ANEU, BMP, MG #### [place] [id number] Chloride [Moles/Vol] 106 mmol/L Normal 98-110 [facility] Comment on above: Performed By: #### A DIFF, CBC, GFR, ANEU, BMP, MG #### [place] [id number] CO2 [Moles/Vol] 21 mmol/L Low 22-32 [facility] Comment on above: Performed By: #### A DIFF, CBC, GFR, ANEU, BMP, MG #### [place] [id number] Creatinine [Mass/Vol] 0.78 mg/dL Normal 0.50-1.20 [facility] Comment on above: Result Comment: Test ing performed on Penboost analyzer using enzymatic creatinine methodology. Performed By: #### A DIFF, CBC, GFR, ANEU, BMP, MG #### [place] [id number] Electrolyte Balance 9.0 mEq/L Normal 4.0-15.0 [facility] Comment on above: Performed By: #### A DIFF, CBC, GFR, ANEU, BMP, MG #### [place] [id number] Glucose [Mass/Vol] 155 mg/dL High 82-115 [facility] Comment on above: Performed By: #### A DIFF, CBC, GFR, ANEU, BMP, MG #### [place] [id number] Potassium [Moles/Vol] 4.1 mmol/L Normal 3.5-5.0 [facility] Comment on above: Result Comment: Spec imen slightly hemolyzed. Performed By: #### A DIFF, CBC, GFR, ANEU, BMP, MG #### [place] [address] Sodium [Moles/Vol] 136 mmol/L Normal 136-145 [facility] Comment on above: Performed By: #### A DIFF, CBC, GFR, ANEU, BMP, MG #### [place] [address] Urea nitrogen [Mass/Vol] 20.0 mg/dL Normal 8.0-22.0 [facility] Comment on above: Performed By: #### A DIFF, CBC, GFR, ANEU, BMP, MG #### [place] [address] CBCon 01-18-2024 Erythrocyte distribution width (RBC) [Ratio] 13.7 % Normal 11.5-15.5 [facility] Comment on above: Performed By: #### A DIFF, CBC, GFR, ANEU, BMP, MG #### [place] [address] Hematocrit (Bld) [Volume fraction] 42.2 % Normal 34.0-46.0 [facility] Comment on above: Performed By: #### A DIFF, CBC, GFR, ANEU, BMP, MG #### [place] [address] Hgb 14.5 G/dL Normal 12.0-16.0 [facility] Comment on above: Performed By: #### A DIFF, CBC, GFR, ANEU, BMP, MG #### [place] [address] MCH (RBC) [Entitic mass] 31.0 pg Normal 27.0-33.0 [facility] Comment on above: Performed By: #### A DIFF, CBC, GFR, ANEU, BMP, MG #### [place] [id number] MCHC 34.4 G/dL Normal 32.0-36.0 [facility] [place] Comment on above: Performed By: #### A DIFF, CBC, GFR, ANEU, BMP, MG #### [address] [address] MCV (RBC) [Entitic vol] 90.3 fL Normal 80.0-99.0 [facility] Comment on above: Performed By: #### A DIFF, CBC, GFR, ANEU, BMP, MG #### [address] [address] Platelet 233 10 3/mcL Normal 150-450 [facility] [place] [place] Comment on above: Performed By: #### A DIFF, CBC, GFR, ANEU, BMP, MG #### [address] [address] Platelet mean volume (Bld) [Entitic vol] 8.5 fL Normal 6.6-10.5 [facility] [place] [place] Comment on above: Performed By: #### A DIFF, CBC, GFR, ANEU, BMP, MG #### [place] [id number] RBC 4.68 10 6/mcL Normal 4.10-5.30 [facility] Comment on above: Performed By: #### A DIFF, CBC, GFR, ANEU, BMP, MG #### [address] [address] WBC 10.9 10 3/mcL High 4.5-10.8 [facility] Comment on above: Performed By: #### A DIFF, CBC, GFR, ANEU, BMP, MG #### [place] [id number] CBC-Complete Blood Cnt No Di ffon 01-18-2024 HCT Normal 37-47 [facility] Comment on above: Result Comment: Canc elled via OM: Order cancelled - Patient discharged Performed By: #### L 501.8220, L500.2500, L503.7505, L100.0100 #### [facility] [address] [place], [address] HGB Normal 12.0-15.0 [facility] Comment on above: Result Comment: Canc elled via OM: Order cancelled - Patient discharged Performed By: #### L 501.9520, L500.2500, L503.7505, L100.0100 #### [facility] [address] [place], [address] MCH Normal 27.0-32.0 [facility] Comment on above: Result Comment: Canc elled via OM: Order cancelled - Patient discharged Performed By: #### L 501.9520, L500.2500, L503.7505, L100.0100 #### [facility] [address] [place], [address] MCHC Normal 32-36 [facility] Comment on above: Result Comment: Canc elled via OM: Order cancelled - Patient discharged Performed By: #### L 501.9520, L500.2500, L503.7505, L100.0100 #### [facility] [address] [place], [address] MCV Normal 81-99 [facility] Comment on above: Result Comment: Canc elled via OM: Order cancelled - Patient discharged Performed By: #### L 501.9520, L500.2500, L503.7505, L100.0100 #### [facility] [address] [place], [address] PLT Normal 150-450 [facility] Comment on above: Result Comment: Canc elled via OM: Order cancelled - Patient discharged Performed By: #### L 501.9520, L500.2500, L503.7505, L100.0100 #### [facility] [address] [place], [address] RBC Normal 4.2-5.4 [facility] Comment on above: Result Comment: Canc elled via OM: Order cancelled - Patient discharged Performed By: #### L 501.9520, L500.2500, L503.7505, L100.0100 #### [facility] [address] [place], [address] RDW CV Normal 11.6-14.6 [facility] Comment on above: Result Comment: Canc elled via OM: Order cancelled - Patient discharged Performed By: #### L 501.9520, L500.2500, L503.7505, L100.0100 #### [facility] [address] [place], [address] RDW SD Normal 35.1-43.9 [facility] Comment on above: Result Comment: Canc elled via OM: Order cancelled - Patient discharged Performed By: #### L 501.9520, L500.2500, L503.7505, L100.0100 #### [facility] [address] [place], [address] WBC Normal 4.4-11.0 [facility] Comment on above: Result Comment: Canc elled via OM: Order cancelled - Patient discharged Performed By: #### L 501.9520, L500.2500, L503.7505, L100.0100 #### [facility] [address] [place], [address] CVS/PCIREPORTon 01-18-2024 CVS/PCIREPORT [facility] Cardi[facility] Services [address] [address] MR#: [id number] Acct: [id number] Name: DEBRA RUDDAISHWARYA Mcgee Rep #: [id number] : 1940 83 From: Billy Wise MD Primary Care: Dr. Karen Resendiz MD Status: ADM IN Referring Dr: Sex: F C PCI Cardiac Cath Report PCI Report: Cardiac cath report. Procedure performed; 1. Access from the right common femoral artery with placement of 6 Ethiopian sheath 2. Selective left coronary angiography 3. [...] Brilinta aspirin. And was brought into the Rn Staff for further Had history of hypertension she [...] blood pressure was significant elevated in the Rn Staff around 170 mmHg. She still having mild [...] a tertiary facility No complication in the Rn Staff patient remains stable clinically. Billy Wise MD,[facility] assistant real estate manager 01/18/2423 Date Billy Wise MD CC: Dr. Billy Wise MD; Dr. Karen Resendiz MD Date Dictated: 01/18/2413 Date Transcribed: 01/18/2413 Payroll Professional: FB Signed Normal [facility] Comprehensive Metabolic Prof ilon 01-18-2024 ALB Normal 3.2-5.0 [facility] Comment on above: Result Comment: Canc elled via OM: Order cancelled - Patient discharged Performed By: #### L 501.9520, L500.2500, L503.7505, L100.0100 #### [facility] [address] [place], [address] ALK P Normal 45-117 [facility] Comment on above: Result Comment: Canc elled via OM: Order cancelled - Patient discharged Performed By: #### L 501.9520, L500.2500, L503.7505, L100.0100 #### [facility] [address] [place], [address] ALT Normal 13-56 [facility] Comment on above: Result Comment: Canc elled via OM: Order cancelled - Patient discharged Performed By: #### L 501.9520, L500.2500, L503.7505, L100.0100 #### [facility] [address] [place], [address] AST Normal 15-37 [facility] Comment on above: Result Comment: Canc elled via OM: Order cancelled - Patient discharged Performed By: #### L 501.9520, L500.2500, L503.7505, L100.0100 #### [facility] [address] [place], [address] BUN Normal 7-18 [facility] Comment on above: Result Comment: Canc elled via OM: Order cancelled - Patient discharged Performed By: #### L 501.9520, L500.2500, L503.7505, L100.0100 #### [facility] [address] [place], [address] BUN/CRE Normal 10-20 [facility] Comment on above: Result Comment: Canc elled via OM: Order cancelled - Patient discharged Performed By: #### L 501.9520, L500.2500, L503.7505, L100.0100 #### [facility] [address] [place], [address] CA,Total Normal 8.5-10.1 [facility] Comment on above: Result Comment: Canc elled via OM: Order cancelled - Patient discharged Performed By: #### L 501.9520, L500.2500, L503.7505, L100.0100 #### [facility] [address] [place], [address] CL Normal 98-107 [facility] Comment on above: Result Comment: Canc elled via OM: Order cancelled - Patient discharged Performed By: #### L 501.9520, L500.2500, L503.7505, L100.0100 #### [facility] [address] [place], [address] CO2 Normal 21.0-32.0 [facility] Comment on above: Result Comment: Canc elled via OM: Order cancelled - Patient discharged Performed By: #### L 501.9520, L500.2500, L503.7505, L100.0100 #### [facility] [address] [place], [address] CREAT,SERUM Normal 0.55-1.02 [facility] Comment on above: Result Comment: Canc elled via OM: Order cancelled - Patient discharged Performed By: #### L 501.9520, L500.2500, L503.7505, L100.0100 #### [facility] [address] [place], [address] EST GFR Normal >60 [facility] Comment on above: Result Comment: Canc elled via OM: Order cancelled - Patient discharged Performed By: #### L 501.9520, L500.2500, L503.7505, L100.0100 #### [facility] [address] [place], [address] EST GFR - AA Normal >60 [facility] Comment on above: Result Comment: Canc elled via OM: Order cancelled - Patient discharged Performed By: #### L 501.9520, L500.2500, L503.7505, L100.0100 #### [facility] [address] [place], [address] GAP Normal 5-15 [facility] Comment on above: Result Comment: Canc elled via OM: Order cancelled - Patient discharged Performed By: #### L 501.9520, L500.2500, L503.7505, L100.0100 #### [facility] [address] [place], [address] GLU Normal 74-106 [facility] Comment on above: Result Comment: Canc elled via OM: Order cancelled - Patient discharged Performed By: #### L 501.9520, L500.2500, L503.7505, L100.0100 #### [facility] [address] [place], [address] Potassium Normal 3.5-5.1 [facility] Comment on above: Result Comment: Canc elled via OM: Order cancelled - Patient discharged Performed By: #### L 501.9520, L500.2500, L503.7505, L100.0100 #### [facility] [address] [place], [address] T BILI Normal 0.20-1.00 [facility] Comment on above: Result Comment: Canc elled via OM: Order cancelled - Patient discharged Performed By: #### L 501.9520, L500.2500, L503.7505, L100.0100 #### [facility] [address] [place], [address] T PROT Normal 6.4-8.2 [facility] Comment on above: Result Comment: Canc elled via OM: Order cancelled - Patient discharged Performed By: #### L 501.9520, L500.2500, L503.7505, L100.0100 #### [facility] [address] [place], [address] Comprehensive Metabolic Profil Normal 136-145 [facility] Comment on above: Result Comment: Canc elled via OM: Order cancelled - Patient discharged Performed By: #### L 501.9520, L500.2500, L503.7505, L100.0100 #### [facility] [address] [place], [address] Consultation - Cardiologyon 01-18-2024 Consultation - Cardiology [facility] Medical Records Department [address] [place] [address] Consultation - Cardiology 01/18/24 0029 MR#: [id number] Acct: [id number] Name: KALINA RUDD Rep #: [id number] : 1940 83 From: Billy Wise MD PCP: Dr. Karen Resendiz MD Status:DEP CLI Location: ICUOUT Assessment Plan Assessment/Plan (1) Fibromyalgia: (2) HTN (hypertension): (3) Acute coronary syndrome: (4) Abnormal EKG: PLAN: Cardiac care plan recommendations; 83-year-old patient brought in by the family to the ED at [facility] With a history of hypertension she was [...] presentation I took the patient to the Rn Staff for further evaluation Her radial access was difficult and then we went from the right common femoral artery obtain an access and placed 6 Ethiopian sheath and then we will proceed with the diagnostic catheter and we noted the patient had very complex coronary lesion involving the left circumflex artery proximally around subtotal 99 tortuous And the Pharis large obtuse marginal had a subtotal 99% The OM 2 is occluded In the distal circumflex artery atherosclerosis distally with possible occluded distal circumflex There is [id number] collateral The left main is calcified however [...] Also noted patient developed V-fib in the Rn Staff requiring to be shocked 3 times to maintain sinus rhythm and she was given amiodarone 150 mg IV in the Rn Staff. Patient started on nitroglycerin IV she was given aspirin and she was given amiodarone, Brilinta in the ER. Suture applied to right common femoral artery sheath. Also started on atorvastatin. Nitroglycerin drip. Billy Wise MD,[facility] [facility] assistant real estate manager HPI Consult Data Date of Consult: 03/12/24 HPI Narrative Reason for Consultation: Acute coronary syndrome/diffuse ST depression with chest pain HPI Narrative: KALINA TOBIN, is a 83 F who presents [facility] Medical History History of left heart catheterization [...] PO QDAY (more content not included)... Normal [facility] H AND P Exam - Hospitaliston 01-18-2024 H&P Exam - Hospitalist [facility] Medical Records Department [address] [place] [address] H P Exam - Hospitalist 01/18/24 0016 MR#: [id number] Acct: [id number] Name: KALINA RUDD #: [id number] : 1940 83 From: Vazquez Woodard DO PCP: Dr. Karen Resendiz MD Status:DIS IN Location: ICU [id number] HPI - General General Date of Admission: [...] trazodone (?), and osteoarthritis who presents to [facility] ER initially complaining of uncontrolled hypertension and [...] go to a tertiary care center at [facility] by chin strap cutter whose help is greatly appreciated. The patient was briefly moved to the ICU where she was started on IV nitroglycerin with an additional dose of IV morphine given to control her ongoing chest pain. This is a same-day admission and discharge. [facility] Home Medications ???Medication ???Instructions ???Recorded ???Last Taken [...] Rate 18 (more content not included)... Normal [facility] 01-18-2024 Bili Indirect 0.8 mg/dL Normal 0.1-10.0 [facility] Comment on above: Performed By: #### A DIFF, CBC, GFR, ANEU, BMP, MG #### [place] [address] Albumin Level 3.7 G/dL Normal 3.2-4.8 [facility] Comment on above: Performed By: #### A DIFF, CBC, GFR, ANEU, BMP, MG #### [address] [address] Albumin/Globulin [Mass ratio] 1.0 {ratio} Normal 0.9-1.6 [facility] Comment on above: Performed By: #### A DIFF, CBC, GFR, ANEU, BMP, MG #### [address] [address] ALP [Catalytic activity/Vol] 121 U/L Normal 38-126 [facility] Comment on above: Performed By: #### A DIFF, CBC, GFR, ANEU, BMP, MG #### [address] [address] ALT [Catalytic activity/Vol] 37 U/L Normal 10-49 [facility] Comment on above: Performed By: #### A DIFF, CBC, GFR, ANEU, BMP, MG #### [address] [address] AST [Catalytic activity/Vol] 67 U/L High 8-34 [facility] Comment on above: Performed By: #### A DIFF, CBC, GFR, ANEU, BMP, MG #### [address] [address] Bili Direct 0.2 mg/dL Normal 0.0-0.4 [facility] Comment on above: Result Comment: Use of this assay is not recommended for patients undergoing treatment with eltrombopag due to the potential for falsely elevated results. Performed By: #### A DIFF, CBC, GFR, ANEU, BMP, MG #### [address] [address] Bili Total 1.00 mg/dL Normal 0.20-1.20 [facility] Comment on above: Result Comment: Use of this assay is not recommended for patients undergoing treatment with eltrombopag due to the potential for falsely elevated results. Performed By: #### A DIFF, CBC, GFR, ANEU, BMP, MG #### [address] [address] Globulin 3.6 G/dL Normal 1.5-3.8 [facility] Comment on above: Performed By: #### A DIFF, CBC, GFR, ANEU, BMP, MG #### [address] [address] Total Protein 7.3 G/dL Normal 5.7-8.2 [facility] Comment on above: Performed By: #### A DIFF, CBC, GFR, ANEU, BMP, MG #### [address] [address] LABORATORYOrdered By: SYSTEM SYSTEM on 01-18-2024 Troponin I.cardiac DL <= 0.01 ng/mL [Mass/Vol] 1456 ng/L High 0 - 34 ng/L ADM SS Comment on above: Interpretive Data: High Sensitive Troponin I Reference Ranges: Female: 0-34 ng/L Male: 0-54 ng/L Testing performed on [employer] analyzer using direct chemiluminescent technology. Albumin BCP [...] 103/mcL Normal 0.0 - 0.3 10^3/mcL Workflow Basophils/100 WBC (Bld) 0.2 % Normal 0.0 - 2.5 % Workflow Bili Indirect 0.8 mg/dL Normal 0.1 - 10.0 mg/dL Chemistry S Bilirubin [Mass/Vol] 1.00 mg/dL Normal 0.20 - 1.20 mg/dL ADM Comment on above: Interpretive Data: U se of this assay is not recommended for patients undergoing treatment with eltrombopag due to the potential for falsely elevated results. Bilirubin.conjugated [Mass/Vol] 0.2 mg/dL Normal 0.0 - 0.4 mg/dL ADM Comment on above: Interpretive Data: U se of this assay is not recommended for patients undergoing treatment with eltrombopag due to the potential for falsely elevated results. Calcium [Mass/Vol] 9.9 mg/dL Normal 8.7 - 10. 4 mg/dL ADM SS Chloride [Moles/Vol] 106 mmol/L Normal 98 - 11 0 mEq/L ADM SS CO2 [Moles/Vol] 21 mmol/L Low 22 - 32 mEq/L ADM Creatinine [Mass/Vol] 0.78 mg/dL Normal 0.50 - 1.20 mg/dL ADM Comment on above: Interpretive Data: T esting performed on [employer] analyzer using enzymatic creatinine methodology. Electrolyte Balance 9.0 mEq/L Normal 4.0 - 15 .0 mEq/L ADM Eosinophils (Bld) [#/Vol] 0.0 103/mcL Normal 0.0 - 0.7 10^3/mcL Workflow SS Eosinophils/100 WBC (Bld) 0.0 % Normal 0.0 - 6.0 % Workflow Erythrocyte distribution width (RBC) [Ratio] 13.7 % Normal 11.5 - 15.5 % Workflow GFR/1.73 sq M.predicted among blacks MDRD (S/P/Bld) [...] 1067 pg/mL Normal 0 - 1800 pg/mL [facility] SS Neutrophils (Bld) [#/Vol] 9.8 103/mcL High 2.3 - 8.1 10^3/mcL Workflow SS Neutrophils/100 WBC (Bld) 90.3 % High 50.0 - 75.0 % [facility] SS Phosphate [Mass/Vol] 2.5 mg/dL Normal 2.4 - 5 .1 mg/dL [facility] Comment on above: Interpretive Data: * *Note - New Reference Range in effect 19 Platelet mean volume (Bld) [Entitic vol] 8.5 fL Normal 6.6 - 10.5 fL Workflow SS Platelets (Bld) [#/Vol] 233 103/mcL Normal 150 - 450 10^3/mcL Workflow SS Potassium [Moles/Vol] 4.1 mmol/L Normal 3.5 - 5.0 mEq/L [facility] Comment on above: Result Comment: Spec imen slightly hemolyzed. Protein [Mass/Vol] 7.3 G/dL Normal 5.7 - 8.2 G/dL [facility] PT Coag (PPP) [Time] 11.8 s Normal [...] 0 10^6/mcL AH Workflow SS Sodium [Moles/Vol] 136 mmol/L Normal 136 - 145 mEq/L AH ADM SS Troponin I.cardiac DL <= 0.01 ng/mL [Mass/Vol] 673 ng/L High 0 - 34 ng/L AH ADM SS Comment on above: Interpretive Data: High Sensitive Troponin I Reference Ranges: Female: 0-34 ng/L Male: 0-54 ng/L Testing performed on [employer] analyzer using direct chemiluminescent technology. TSH Qn [...] SS UA Protein Trace mg/dL Normal Negative Auto Urine SS UA Spec Grav >=1.030 *ABN* (01/18/24 5:36 AM) Invalid Interpretation Code 1.006-1.029 Auto Urine SS UA Specimen Type Clean Catch (01/18/24 5:36 AM) Normal Auto Urine SS UA Urobilinogen 1.0 E.U./dL Normal 0.2-1.0 Auto Urine SS LABORATORYOrdered By: Maria C Lee on 01-18-2024 Cholesterol [Mass/Vol] 222 mg/dL High 50 - 199 mg/dL [facility] Comment on above: Interpretive Data: C holesterol Reference Interval: Less than 200 Desirable 200-239 Borderline high risk 240 and above High risk Cholesterol in HDL [Mass/Vol] 55 mg/dL Normal 40 - 59 mg/dL [facility] Cholesterol in LDL [Mass/Vol] 148 mg/dL High 0 - 129 mg/dL [facility] Triglyceride [Mass/Vol] 97 mg/dL Normal 3 - 149 mg/dL [facility] LIPIDon 01-18-2024 Cholesterol [Mass/Vol] 222 mg/dL High 50-199 [facility] Comment on above: Result Comment: Chol esterol Reference Interval: Less than 200 Desirable 200-239 Borderline high risk 240 and above High risk Performed By: #### A DIFF, CBC, GFR, ANEU, BMP, MG #### [address] [address] Cholesterol in HDL [Mass/Vol] 55 mg/dL Normal 40-59 [facility] Comment on above: Performed By: #### A DIFF, CBC, GFR, ANEU, BMP, MG #### [address] [address] Cholesterol in LDL [Mass/Vol] 148 mg/dL High 0-129 [facility] Comment on above: Performed By: #### A DIFF, CBC, GFR, ANEU, BMP, MG #### [address] [address] Triglyceride [Mass/Vol] 97 mg/dL Normal 3-149 [facility] Comment on above: Performed By: #### A DIFF, CBC, GFR, ANEU, BMP, MG #### [address] [address] MGon 01-18-2024 Magnesium [Mass/Vol] 1.9 mg/dL Normal 1.6-2.4 [facility] Comment on above: Performed By: #### A DIFF, CBC, GFR, ANEU, BMP, MG #### [place] [address] No Panel InformationOrdered By: SYSTEM SYSTEM on 01-18-2024 PT International Ratio 1.0 ratio Invalid Interpretation Code ELICIA [facility] SS Comment on above: Interpretive Data: Carlee leroy [employer] (CHEST, 1992, 102:312S-25S) recommended therapeutic range for oral anticoagulant therapy is: LOW RISK: Prophylaxis of venous thrombosis INR: 2.0-3.0 Treatment of pulmonary embolism 2.0-3.0 Prevention of systemic embolism 2.0-3.0 HIGH RISK: Mechanical prosthetic valves 2.5-3.5 PBNPon 01-18-2024 Natriuretic peptide B (Bld) [Mass/Vol] 1067 pg/mL Normal 0-1800 [facility] Comment on above: Performed By: #### A DIFF, CBC, GFR, ANEU, BMP, MG #### [place] [address] PHOSon 01-18-2024 Phosphate [Mass/Vol] 2.5 mg/dL Normal 2.4-5.1 [facility] Comment on above: Result Comment: No te - New Reference Range in effect 19 Performed By: #### A DIFF, CBC, GFR, ANEU, BMP, MG #### [place] [address] PROon 01-18-2024 INR Coag (PPP) [Relative time] 1.0 {INR} Normal [facility] Comment on above: Result Comment: [employer] (CHEST, 1991, 102:312S-25S) recommended therapeutic range for oral anticoagulant therapy is: LOW RISK: Prophylaxis of venous thrombosis INR: 2.0-3.0 Treatment of pulmonary embolism 2.0-3.0 Prevention of systemic embolism 2.0-3.0 HIGH RISK: Mechanical prosthetic valves 2.5-3.5 Performed By: #### A DIFF, CBC, GFR, ANEU, BMP, MG #### [address] [address] PT Coag (PPP) [Time] 11.8 s Normal 9.0-14.4 [facility] Comment on above: Result Comment: Effe ctive 08/25/07, Protime results may be affected by some antibiotics (i.e. Ciprofloxacin, Azithromycin, Bactrim) which may potentiate the action of oral anticoagulants, with further increases in Protime/INR. Performed By: #### A DIFF, CBC, GFR, ANEU, BMP, MG #### [place] [id number] INR Coag (PPP) [Relative time] 1.0 {INR} Normal [facility] Comment on above: Result Comment: [employer] (CHEST, 1992, 102:312S-25S) recommended therapeutic range for oral anticoagulant therapy is: LOW RISK: Prophylaxis of venous thrombosis INR: 2.0-3.0 Treatment of pulmonary embolism 2.0-3.0 Prevention of systemic embolism 2.0-3.0 HIGH RISK: Mechanical prosthetic valves 2.5-3.5 Performed By: #### A DIFF, CBC, GFR, ANEU, BMP, MG #### [place] [id number] PT Coag (PPP) [Time] 11.9 s Normal 9.0-14.4 [facility] Comment on above: Result Comment: Effe ctive 08/25/07, Protime results may be affected by some antibiotics (i.e. Ciprofloxacin, Azithromycin, Bactrim) which may potentiate the action of oral anticoagulants, with further increases in Protime/INR. Performed By: #### A DIFF, CBC, GFR, ANEU, BMP, MG #### [address] [address] [facility] 01-18-2024 High Sensitivity Troponin I 1456 ng/L High 0-34 [facility] Comment on above: Result Comment: High Sensitive Troponin I Reference Ranges: Female: 0-34 ng/L Male: 0-54 ng/L Testing performed on [employer] analyzer using direct chemiluminescent technology. Performed By: #### T ROP #### [place] [address] High Sensitivity Troponin I 673 ng/L High 0-34 [facility] Comment on above: Result Comment: High Sensitive Troponin I Reference Ranges: Female: 0-34 ng/L Male: 0-54 ng/L Testing performed on [employer] analyzer using direct chemiluminescent technology. Performed By: #### A DIFF, CBC, GFR, ANEU, BMP, MG #### [place] [address] TSHon 01-18-2024 TSH 2.587 mIU/mL Normal 0.550-4.780 [facility] Comment on above: Performed By: #### A DIFF, CBC, GFR, ANEU, BMP, MG #### [place] [address] UAon 01-18-2024 Color (U) Yellow Normal [facility] Comment on above: Performed By: #### U A #### [place] [address] Glucose (U) [Mass/Vol] 100 mg/dL Abnormal Negative [facility] Comment on above: Performed By: #### U A #### [place] [address] Ketones Ql (U) 40 mg/dL Abnormal Neg-Trace [facility] Comment on above: Performed By: #### U A #### [place] [address] UA Appear Clear Normal Clear [facility] Comment on above: Performed By: #### U A #### [place] [address] UA Blood Negative Normal Neg-Trace [facility] Comment on above: Performed By: #### U A #### [place] [address] UA Leuk Est Negative Normal Negative [facility] Comment on above: Performed By: #### U A #### [place] [address] UA Nitrite Negative Normal Negative [facility] Comment on above: Performed By: #### U A #### [address] [address] UA pH 8.0 Normal 5.0 - 8.0 [facility] Comment on above: Performed By: #### U A #### [address] [address] UA Protein Trace Normal Negative [facility] Comment on above: Performed By: #### U A #### [place] [id number] UA Spec Grav >=1.030 Abnormal 1.006-1.029 [facility] Comment on above: Performed By: #### U A #### [place] [address] UA Specimen Type Clean Catch [facility] Comment on above: Performed By: #### U A #### [place] [address] UA Urobilinogen 1.0 E.U./dL Normal 0.2-1.0 [facility] Comment on above: Performed By: #### U A #### [place] [address] Urobilinogen (U) [Mass/Vol] Negative Normal Neg-Trace [facility] Comment on above: Performed By: #### U A #### [place] [address] XR CHEST 1 VIEWon 01-18-2024 XR CHEST [...] Date: 01/18/2024 5:35:45 AM Ordering Provider: KENNY [facility] 12 Lead EKGon 01-17-2024 12 Lead EKG [facility] Cardiovascular Services [address] [place] [address] 12 Lead EKG 01/17/24 2224 MR#: [id number] Acct: [id number] Name: KALINA RUDD Rep #: [id number] : 1940 83 From: Kenny Good MD [...] ischemia Abnormal ECG Confirmed by Kenny Good ([id number]), film and video editor EMILY MANTILLA ([id number]) on 01/19/2024 9:06:56 AM Referred By: Confirmed By: Kenny Good 01/19/24906 Date Kenny Good MD CC: Dr. Elmer Lujan DO; Dr. Billy Wise MD; Dr. Karen Resendiz MD [facility] 12 Lead EKG [facility] Cardiovascular Services [address] [facility] [place] [address] 12 Lead EKG 01/17/24 2115 MR#: [id number] Acct: [id number] Name: KALINA RUDD Rep #: [id number] : 1940 83 From: Kenny Good MD [...] injury Abnormal ECG Confirmed by Kenny Good ([id number]), film and video editor YASMIN VO ([id number]) on 01/19/2024 7:02:30 AM Referred By: Confirmed By: Kenny Good 01/19/24701 Date Kenny Good MD CC: Dr. Elmer Lujan DO; Dr. Billy Wise MD; Dr. Karen Resendiz MD Signed [facility] 12 Lead EKG [facility] Cardiovascular Services [address] [place] [address] 12 Lead EKG 01/17/24 2045 MR#: [id number] Acct: [id number] Name: KALINA RUDD Rep #: [id number] : 1940 83 From: Kenny Good MD [...] abnormality Abnormal ECG Confirmed by Kenny Good ([id number]), film and video editor YASMIN VO ([id number]) on 01/19/2024 7:02:16 AM Referred By: Confirmed By: Kenny Good 01/19/24701 Date Kenny Good MD CC: Dr. Elmer Lujan DO; Dr. Billy Wise MD; Dr. Karen Resendiz MD Signed Normal [facility] BNP,B-Type NATRIURETIC PEPTI David 01-17-2024 Natriuretic peptide B (Bld) [Mass/Vol] 87.2 pg/mL Normal 0-100 [facility] Comment on above: Performed By: #### L 501.9520, L500.2500, L503.7505, L100.0100 #### [facility] Laboratory [address] [place], [address] Basic Metabolic Profile (BMP )on 01-17-2024 BUN/CRE 17.6 RATIO Normal 10-20 [facility] Comment on above: Order Comment: 'TROP ' Serial specimen #1, #2 or #3: 1 Performed By: #### L 501.9520, L500.2500, L503.7505, L100.0100 #### [facility] [address] [place], [address] CA,Total 9.6 mg/dL Normal 8.5-10.1 [facility] Comment on above: Order Comment: 'TROP ' Serial specimen #1, #2 or #3: 1 Performed By: #### L 501.9520, L500.2500, L503.7505, L100.0100 #### [facility] [address] [place], [address] Chloride [Moles/Vol] 106 mmol/L Normal 98-107 [facility] Comment on above: Order Comment: 'TROP ' Serial specimen #1, #2 or #3: 1 Performed By: #### L 501.9520, L500.2500, L503.7505, L100.0100 #### [facility] [address] [place], [address] CO2 [Moles/Vol] 24.0 mmol/L Normal 21.0-32.0 [facility] Comment on above: Order Comment: 'TROP ' Serial specimen #1, #2 or #3: 1 Performed By: #### L 501.9520, L500.2500, L503.7505, L100.0100 #### [facility] [address] [place], [address] Creatinine [Mass/Vol] 1.31 mg/dL High 0.55-1.02 [facility] Comment on above: Order Comment: 'TROP ' Serial specimen #1, #2 or #3: 1 Result Comment: The validity of the calculated GFR GFRAA in patients over 70 years has not been determined. Clinical correlation is essential. Performed By: #### L 501.9520, L500.2500, L503.7505, L100.0100 #### [facility] [address] [place], [address] ECRCL 28.45 ml/min Normal [facility] Comment on above: Order Comment: 'TROP ' Serial specimen #1, #2 or #3: 1 Performed By: #### L 501.9520, L500.2500, L503.7505, L100.0100 #### [facility] [address] [place], [address] EST GFR - AA 50 mL/min Low >60 [facility] Comment on above: Order Comment: 'TROP ' Serial specimen #1, #2 or #3: 1 Result Comment: Afri can [place] GFR Calc Performed By: #### L 501.9520, L500.2500, L503.7505, L100.0100 #### [facility] [address] [place], [address] GAP 5 Normal 5-15 [facility] Comment on above: Order Comment: 'TROP ' Serial specimen #1, #2 or #3: 1 Performed By: #### L 501.9520, L500.2500, L503.7505, L100.0100 #### [facility] [address] [place], [address] GFR/1.73 sq M.predicted among non-blacks MDRD (S/P/Bld) [Vol rate/Area] 41 mL/min/{1.73_m2} Low >60 [facility] Comment on above: Order Comment: 'TROP ' Serial specimen #1, #2 or #3: 1 Result Comment: Non- GFR Calc Performed By: #### L 501.9520, L500.2500, L503.7505, L100.0100 #### [facility] [address] [place], [address] Glucose [Mass/Vol] 92 mg/dL Normal 74-106 [facility] Comment on above: Order Comment: 'TROP ' Serial specimen #1, #2 or #3: 1 Performed By: #### L 501.9520, L500.2500, L503.7505, L100.0100 #### [facility] [address] [place], [address] Potassium [Moles/Vol] 4.5 mmol/L Normal 3.5-5.1 [facility] Comment on above: Order Comment: 'TROP ' Serial specimen #1, #2 or #3: 1 Result Comment: Mode rate Hemolysis, Result may be falsely increased. Performed By: #### L 501.9520, L500.2500, L503.7505, L100.0100 #### [facility] [address] [place], [address] Sodium [Moles/Vol] 136 mmol/L Normal 136-145 [facility] Comment on above: Order Comment: 'TROP ' Serial specimen #1, #2 or #3: 1 Performed By: #### L 501.9520, L500.2500, L503.7505, L100.0100 #### [facility] [address] [place], [address] Urea nitrogen [Mass/Vol] 23 mg/dL High 7-18 [facility] Comment on above: Order Comment: 'TROP ' Serial specimen #1, #2 or #3: 1 Performed By: #### L 501.9520, L500.2500, L503.7505, L100.0100 #### [facility] [address] [place], [address] Brain/Head without Contrasto n 01-17-2024 Brain/Head without Contrast [facility] Imaging Services [address] [place] [address] Brain/Head without Contrast MR#: [id number] Acct: [id number] Name: KALINA RUDD Rep #: [id number] : 1940 F 83 From: Tien Burger DO PCP: Dr. Karen Resendiz MD Status: REG ER Study: Brain/Head without Contrast Date of Exam: 09/02 Exam# [id number] Ordering Dr: Elmer Lujan DO [id number] STUDY: CT BRAIN WITHOUT CONTRAST REASON FOR [...] of the brain. Electronically Signed: Tien Burger at 22:00 EST Reading Location ID and State: [facility] / [place] Tel [phone], Service support , CC: Dr. Elmer Lujan DO; Dr. Karen Resendiz MD Payroll Professional: Signed Normal [facility] CBC W/Diff, Automatedon 12-0 Absolute Lymph 1.69 X10 3/uL Normal 0.83-4.51 [facility] Comment on above: Performed By: #### L 501.9520, L500.2500, L503.7505, L100.0100 #### [facility] [address] [place], [address] Absolute Neut 5.9 X10 3/uL Normal 2.0-7.7 [facility] Comment on above: Performed By: #### L 501.9520, L500.2500, L503.7505, L100.0100 #### [facility] [address] [place], [address] Basophils/100 WBC (Bld) 0.6 % Normal 0-1 [facility] Comment on above: Performed By: #### L 501.9520, L500.2500, L503.7505, L100.0100 #### [facility] [address] [place], [address] Eosinophils/100 WBC (Bld) 1.1 % Normal 0-5 [facility] Comment on above: Performed By: #### L 501.9520, L500.2500, L503.7505, L100.0100 #### [facility] [address] [place], [address] Erythrocyte distribution width (RBC) [Ratio] 12.8 % Normal 11.6-14.6 [facility] Comment on above: Performed By: #### L 501.9520, L500.2500, L503.7505, L100.0100 #### [facility] [address] [place], [address] Hematocrit (Bld) [Volume fraction] 43.3 % Normal 37-47 [facility] Comment on above: Performed By: #### L 501.9520, L500.2500, L503.7505, L100.0100 #### [facility] [address] [place], [address] Hemoglobin (Bld) [Mass/Vol] 14.3 g/dL Normal 12.0-15.0 [facility] Comment on above: Performed By: #### L 501.9520, L500.2500, L503.7505, L100.0100 #### [facility] [address] [place] [place], [address] IG% 0.400 Normal 0.0-0.9 [facility] Comment on above: Result Comment: IG% - Immature Granulocytes (promyelocytes, myelocytes and metamyelocytes) > 1% indicates that a LEFT SHIFT is Present. Performed By: #### L 501.9520, L500.2500, L503.7505, L100.0100 #### [facility] [address] [place], [address] Lymphocytes/100 WBC (Bld) 20.2 % Normal 19-41 [facility] Comment on above: Performed By: #### L 501.9520, L500.2500, L503.7505, L100.0100 #### [facility] [address] [place], [address] MCH (RBC) [Entitic mass] 30.6 pg Normal 27.0-32.0 [facility] Comment on above: Performed By: #### L 501.9520, L500.2500, L503.7505, L100.0100 #### [facility] [address] [place], [address] MCHC (RBC) [Mass/Vol] 33.0 g/dL Normal 32-36 [facility] Comment on above: Performed By: #### L 501.9520, L500.2500, L503.7505, L100.0100 #### [facility] [address] [place], [address] MCV (RBC) [Entitic vol] 92.7 fL Normal 81-99 [facility] Comment on above: Performed By: #### L 501.9520, L500.2500, L503.7505, L100.0100 #### [facility] [address] [place], [address] Monocytes/100 WBC (Bld) 6.9 % Normal 0-10 [facility] Comment on above: Performed By: #### L 501.9520, L500.2500, L503.7505, L100.0100 #### [facility] [address] [place], [address] Neutrophils/100 WBC (Bld) 70.8 % High 47-70 [facility] Comment on above: Performed By: #### L 501.9520, L500.2500, L503.7505, L100.0100 #### [facility] [address] [place], [address] Nucleated RBC (Bld) [#/Vol] 0 10*3/uL Normal 0-5 [facility] Comment on above: Performed By: #### L 501.9520, L500.2500, L503.7505, L100.0100 #### [facility] [address] [place], [address] Platelet mean volume (Bld) [Entitic vol] 12.1 fL High 6.2-12.0 [facility] Comment on above: Performed By: #### L 501.9520, L500.2500, L503.7505, L100.0100 #### [facility] [address] [place], [address] Platelets (Bld) [#/Vol] 165 10*3/uL Normal 150-450 [facility] Comment on above: Performed By: #### L 501.9520, L500.2500, L503.7505, L100.0100 #### [facility] [address] [place], [address] RBC (Bld) [#/Vol] 4.67 10*6/uL Normal 4.2-5.4 [facility] Comment on above: Performed By: #### L 501.9520, L500.2500, L503.7505, L100.0100 #### [facility] [address] [place], [address] RDW SD 43.8 fl Normal 35.1-43.9 [facility] Comment on above: Performed By: #### L 501.9520, L500.2500, L503.7505, L100.0100 #### [facility] [address] [place], [address] WBC (Bld) [#/Vol] 8.4 10*3/uL Normal 4.4-11.0 [facility] Comment on above: Performed By: #### L 501.9520, L500.2500, L503.7505, L100.0100 #### [facility] [address] [place], [address] Chest 1 View (Portable)on Chest 1 View (Portable) [facility] Imaging Services [address] [place] [address] Chest 1 View (Portable) MR#: [id number] Acct: [id number] Name: KALINA RUDD Rep #: [id number] : 1940 F 83 From: Tien Burger DO PCP: Dr. Karen Resendiz MD Status: REG ER Study: Chest 1 View (Portable) Date of Exam: 01/17/24 Exam# [id number] Ordering Dr: Elmer Lujan DO [id number] INDICATION: Hypertension EXAMINATION/TECHNIQUE: X-RAY - XR Chest [...] Signed: Tien Burger DO at 22:34 EST Reading Location ID and State: [facility] / [place] Tel [phone], Service support , CC: Dr. Elmer Lujan DO; Dr. Karen Resendiz MD Payroll Professional: Signed Normal [facility] Emergency Department Summary on 01-17-2024 Emergency Department Summary [facility] Medical Records Department [address] [place] [address] Emergency Department Summary 01/17/24 MR#: [id number] Acct: [id number] Name: KALINA RUDD Rep #: [id number] : 1940 83 From: Elmer Lujan DO PCP: Dr. Karen Resendiz MD Status:ADM IN Location: ICU [id number] HPI History of Present Illness Chief Complaint: [...] intact Psych: Cooperative, appropriate mood and affect [facility] Home Medications ???Medication ???Instructions ???Recorded ???Last Taken [...] with nons (more content not included)... Normal [facility] L501.4020on 01-17-2024 TROPONIN-I HS 8 pg/mL Normal 3.0-54.0 [facility] Comment on above: Order Comment: 'TROP ' Serial specimen #1, #2 or #3: 1 Result Comment: José Luis scott Note: New Test Units and Gender Specific Reference Ranges. For more information see Policy Stat Procedure [place] High Sensitivity Troponin (TNIH) and attachments. Performed By: #### L 501.9520, L500.2500, L503.7505, L100.0100 #### [facility] [address] [place], [address] TROPONIN-I HS 6 pg/mL Normal 3.0-54.0 [facility] Comment on above: Order Comment: 'TROP ' Serial specimen #1, #2 or #3: 1 Result Comment: José Luis scott Note: New Test Units and Gender Specific Reference Ranges. For more information see Policy Stat Procedure [place] High Sensitivity Troponin (TNIH) and attachments. Performed By: #### L 501.9520, L500.2500, L503.7505, L100.0100 #### [facility] [address] [place], [address] CNPNon 01-02-2024 [facility] Telephone (INTMWS) -- KALINA RUDD ([id number]) 1940 F [facility] Date Time Provider Department 01/02/24 KAREN RESENDIZ INTWS During your visit today, we recorded the following information about you: Jimena Pennington LPN 01/02/2024 8:17 AM Signed Electronic PA completed ands response. Prior authorization approved Payer: Pedro [phone] Note from payer: MARCUS Case: [id number], Status: Approved, Coverage Starts on: 01/01/2024 8:02:06 [...] to its destination. To be filled at: [facility] [place] [address] [address] [facility] - [phone] Jimena Pennington LPN 01/02/2024 11:42 AM Signed [...] Fully Assessed Reason for Visit: Insurance Authorization [[id number]] Prescriptions as of 01/02/2024 - metoprolol succinate [...] ointment Actually gets compounded RX 0.07% through [facility] from [employer] to use twice weekly - Miscellaneous Medical [...] Encounter Status:Closed by JIMENA PENNINGTON on 01/02/24 [facility] CNOVon 01-01-2024 CNOV Office Visit (INTMWS ) -- KALINA RUDD ([id number]) 1940 F T Date Time Provider Department 01/01/24 3:00 PM MADDIE SAHU INTMWS During your visit today, we recorded the following information about you: Pulse Respiration Blood pressure Weight 68/minute 16/minute 157/59 62.2 kg Maddie Sahu APRN.HOUSE SHORER 01/01/2024 4:01 PM Signed SUBJECTIVE: DTaP,Tdap,Td Vaccine(1 [...] ointment Actually gets compounded RX 0.07% through [facility] from [employer] to use twice weekly Miscellaneous Medical [facility] probiotics--Yeast and Vaginal PH support probiotic. Probiotic [...] anxiety di (more content not included)... [facility] KALINA RUDD ([id number]) 1940 F T Date Time Provider Department 11/10/23 NELLI REYES INTWS During your visit today, we recorded the following information about you: Nelli Reyes APRN.CNP 11/10/2023 4:10 PM Signed Rula. Please call patient and let them [...] ointment Actually gets compounded RX 0.07% through [facility] from [employer] to use twice weekly - Miscellaneous Medical Supply [facility] probiotics--Yeast and Vaginal PH support probiotic. Probiotic [...] Status:Closed by MARYJANE FLORES on 11/10/23 Normal [facility] 25(OH)D3 Zelda 2023 25-hydroxyvitamin D3 [Mass/Vol] 36.2 ng/mL Normal 31.0-80.0 [facility] Comment on above: Order Comment: Speci men Type: BLOOD SPECIMENOrdering Facility: [facility] Address: [address] [place] [address] Result Comment: Clas sification of 25 [place] Vitamin D status: Deficiency/Insufficiency: < or = 30 ng/ml. Sufficiency/Optimal Levels: 31-80 ng/mL Toxicity: > 100 ng/mL. Test performed by chemiluminescent immunoassay. Performed By: #### 1 989-3 ####[facility] LABIA [id number] [address] [place] CBC panel Auto (Bld)on 11-06 Erythrocyte distribution width (RBC) [Ratio] 13.4 % Normal 11.5-15.0 [facility] Comment on above: Order Comment: Speci men Type: BLOOD SPECIMENOrdering Facility: [facility] Address: [address] [place] [address] Performed By: #### 5 8410-2 ####[facility] LABIA [id number] [address] [place] Hematocrit (Bld) [Volume fraction] 44.8 % Normal 36.0-46.0 [facility] Comment on above: Order Comment: Speci men Type: BLOOD SPECIMENOrdering Facility: [facility] Address: [address] [place] [address] Performed By: #### 5 8410-2 ####[facility] LABIA [id number] [place] [address] [place] Hemoglobin (Bld) [Mass/Vol] 14.2 g/dL Normal 11.5-15.5 [facility] Comment on above: Order Comment: Speci men Type: BLOOD SPECIMENOrdering Facility: [facility] Address: [address] [place] [address] Performed By: #### 5 8410-2 ####[facility] LABIA [id number] [place] [address] [place] MCH (RBC) [Entitic mass] 30.2 pg Normal 26.0-34.0 [facility] Comment on above: Order Comment: Speci men Type: BLOOD SPECIMENOrdering Facility: [facility] Address: [address] [place] [address] Performed By: #### 5 8410-2 ####[facility] LABIA [id number] [place] [address] [place] MCHC (RBC) [Mass/Vol] 31.7 g/dL Normal 30.5-36.0 [facility] Comment on above: Order Comment: Speci men Type: BLOOD SPECIMENOrdering Facility: [facility] Address: [address] [place] [address] Performed By: #### 5 8410-2 ####[facility] LABIA [id number] [place] [address] [place] MCV (RBC) [Entitic vol] 95.3 fL Normal 80.0-100.0 [facility] Comment on above: Order Comment: Speci men Type: BLOOD SPECIMENOrdering Facility: [facility] Address: [address] [place] [address] Performed By: #### 5 8410-2 ####[facility] LABIA [id number] [place] [address] [place] Nucleated RBC (Bld) [#/Vol] 10*3/uL Normal <0.01 [facility] Comment on above: Order Comment: Speci men Type: BLOOD SPECIMENOrdering Facility: [facility] Address: [address] [place] [address] Performed By: #### 5 8410-2 ####[facility] LABIA [id number] [place] [address] [place] Platelet mean volume (Bld) [Entitic vol] 10.4 fL Normal 9.0-12.7 [facility] Comment on above: Order Comment: Speci men Type: BLOOD SPECIMENOrdering Facility: [facility] Address: [address] [place] [address] Performed By: #### 5 8410-2 ####[facility] LABCLIA [id number] [place] [address] [place] Platelets (Bld) [#/Vol] 285 10*3/uL Normal 150-400 [facility] Comment on above: Order Comment: Speci men Type: BLOOD SPECIMENOrdering Facility: [facility] Address: [address] [place] [address] Performed By: #### 5 8410-2 ####[facility] LABIA [id number] [place] [address] [place] RBC (Bld) [#/Vol] 4.70 10*6/uL Normal 3.90-5.20 [facility] Comment on above: Order Comment: Speci men Type: BLOOD SPECIMENOrdering Facility: [facility] Address: [address] [place] [address] Performed By: #### 5 8410-2 ####[facility] LABIA [id number] [place] [address] [place] WBC (Bld) [#/Vol] 7.05 10*3/uL Normal 3.70-11.00 [facility] Comment on above: Order Comment: Speci men Type: BLOOD SPECIMENOrdering Facility: [facility] Address: [address] [place] [address] Performed By: #### 5 8410-2 ####[facility] LABIA [id number] [place] [address] [place] CNOVon 11-07-2023 CNOV Office Visit (INTMWS ) -- BENCHOFF,KALINA M ([id number]) 1940 F CHT Date Time Provider Department 11/07/23 3:00 PM NELLI REYES During your visit today, we recorded the following information about you: Pulse Blood pressure Weight 60/minute 136/72 63.1 kg Nelli Reyes APRN.[employer] 11/07/2023 3:27 PM Signed SUBJECTIVE Kalina Rudd is a 83 year [...] ointment Actually gets compounded RX 0.07% through [facility] from [employer] to use twice weekly dorzolamide HCl/PF (DORZOLAMIDE, [...] 2 times daily Miscellaneous Medical Supply [facility] probiotics--Yeast and Vaginal PH support probiotic. Probiotic [...] Recurrent Major Depressive Disorder, in Partial Remission ([facility]) - 09/08/2017 Vitamin D Deficiency - [...] baseline. Psychiatric: (more content not included)... Normal [facility] Comprehensive metabolic 2000 panelon 11-07-2023 Albumin [Mass/Vol] 4.3 g/dL Normal 3.9-4.9 [facility] Comment on above: Order Comment: Speci men Type: BLOOD SPECIMENOrdering Facility: [facility] Address: [address] [place] [address] Performed By: #### 2 4323-8, , ####[facility] LABIA [id number] [place] [address] [place] ALP [Catalytic activity/Vol] 93 U/L Normal 34-123 [facility] Comment on above: Order Comment: Speci men Type: BLOOD SPECIMENOrdering Facility: [facility] Address: [address] [place] [address] Performed By: #### 2 4323-8, , ####[facility] LABIA [id number] [place] [address] [place] ALT [Catalytic activity/Vol] 6 U/L Low 7-38 [facility] Comment on above: Order Comment: Speci men Type: BLOOD SPECIMENOrdering Facility: [facility] Address: [address] [place] [address] Performed By: #### 2 4323-8, , ####[facility] LABCLIA [id number] [place] [id number] [place] Anion gap [Moles/Vol] 11 mmol/L Normal 8-15 [facility] Comment on above: Order Comment: Speci men Type: BLOOD SPECIMENOrdering Facility: [facility] Address: [address] [place], [place] [address] Performed By: #### 2 4323-8, , ####[facility] LABCLIA [id number] [address] [address] [place] AST [Catalytic activity/Vol] 18 U/L Normal 13-35 [facility] Comment on above: Order Comment: Speci men Type: BLOOD SPECIMENOrdering Facility: [facility] Address: [address] [place] [address] Performed By: #### 2 4323-8, , ####[facility] LABCLIA [id number] [place] [address] [place] Bilirubin [Mass/Vol] 0.7 mg/dL Normal 0.2-1.3 [facility] Comment on above: Order Comment: Speci men Type: BLOOD SPECIMENOrdering Facility: [facility] Address: [address] [place] [address] Performed By: #### 2 4323-8, , ####[facility] LABCLIA [id number] [place] [address] [place] Calcium [Mass/Vol] 9.9 mg/dL Normal 8.5-10.2 [facility] Comment on above: Order Comment: Speci men Type: BLOOD SPECIMENOrdering Facility: [facility] Address: [address] [place], [place] [address] Performed By: #### 2 4323-8, , 69705-9 ####[facility] LABIA [id number] [place] [id number] [place] Chloride [Moles/Vol] 105 mmol/L Normal 98-107 [facility] Comment on above: Order Comment: Speci men Type: BLOOD SPECIMENOrdering Facility: [facility] Address: [address] [place] [address] Performed By: #### 2 4323-8, 38902-0, 36507-9 ####[facility] LABCLIA [id number] [place] [address] [place] CO2 [Moles/Vol] 25 mmol/L Normal 22-30 [facility] Comment on above: Order Comment: Speci men Type: BLOOD SPECIMENOrdering Facility: [facility] Address: [address] [place] [address] Performed By: #### 2 4323-8, , 64039-7 ####[facility] LABCLIA [id number] [place] [address] [place] Creatinine [Mass/Vol] 0.90 mg/dL Normal 0.58-0.96 [facility] Comment on above: Order Comment: Speci men Type: BLOOD SPECIMENOrdering Facility: [facility] Address: [address] [place] [address] Performed By: #### 2 4323-8, , ####[facility] LABCLIA [id number] [place] [address] [place] Creatinine and Glomerular filtration rate.predicted panel (S/P/Bld) 64 mL/min/1.73m??? Normal >=60 [facility] Comment on above: Order Comment: Speci men Type: BLOOD SPECIMENOrdering Facility: [facility] Address: [address] [place] [address] Result Comment: Shara mated Glomerular Filtration Rate [...] actual GFR. Performed By: #### 2 4323-8, 09316-3, 59707-8 ####[facility] LABCLIA [id number] [place] [id number] [place] Glucose [Mass/Vol] 93 mg/dL Normal 74-99 [facility] Comment on above: Order Comment: Speci men Type: BLOOD SPECIMENOrdering Facility: [facility] Address: [address] [place] [address] Result Comment: The [place] Diabetes Association (ADA) provides guidance for cutoff [...] Standards of Medical Care in Diabetes 2016, [place] [employer]. Diabetes Care. 2016.39(Suppl 1). Performed By: #### 2 4323-8, , 12682-5 ####[facility] LABIA [id number] [place] [address] [place] Potassium [Moles/Vol] 4.3 mmol/L Normal 3.7-5.1 [facility] Comment on above: Order Comment: Speci men Type: BLOOD SPECIMENOrdering Facility: [facility] Address: [address] [place] [address] Performed By: #### 2 4323-8, , 15849-2 ####[facility] LABIA [id number] [place] [address] [place] Protein [Mass/Vol] 7.7 g/dL Normal 6.3-8.0 [facility] Comment on above: Order Comment: Speci men Type: BLOOD SPECIMENOrdering Facility: [facility] Address: [address] [place] [address] Performed By: #### 2 4323-8, , ####[facility] LABCLIA [id number] [address] [address] [place] Sodium [Moles/Vol] 141 mmol/L Normal 136-144 [facility] Comment on above: Order Comment: Speci men Type: BLOOD SPECIMENOrdering Facility: [facility] Address: [address] [place] [address] Performed By: #### 2 4323-8, , ####[facility] LABCLIA [id number] [address] [address] [place] Urea nitrogen [Mass/Vol] 18 mg/dL Normal 7-21 [facility] Comment on above: Order Comment: Speci men Type: BLOOD SPECIMENOrdering Facility: [facility] Address: [address] [place] [address] Performed By: #### 2 4323-8, , ####[facility] LABCLIA [id number] [address] [address] [place] Lipid 1996 panelon 4 Cholesterol [Mass/Vol] 242 mg/dL High <200 [facility] Comment on above: Order Comment: Speci men Type: BLOOD SPECIMENOrdering Facility: [facility] Address: [address] [place] [address] Result Comment: <200 mg/dL, Desirable 200-239 mg/dL, Borderline high >239 mg/dL, High Performed By: #### 2 4323-8, , 24771-8 ####[facility] LABIA [id number] [address] [address] [place] Cholesterol in HDL [Mass/Vol] 48 mg/dL Normal >39 [facility] Comment on above: Order Comment: Speci men Type: BLOOD SPECIMENOrdering Facility: [facility] Address: [address] [place] [address] Result Comment: 40-5 9 mg/dL, Acceptable >59 mg/dL, High: Negative risk factor for coronary heart disease <40 mg/dL, Low: Positive risk factor for coronary heart disease Performed By: #### 2 4323-8, , ####[facility] LABCLIA [id number] [address] [address] [place] Cholesterol in LDL [Mass/Vol] 159 mg/dL High <100 [facility] Comment on above: Order Comment: Speci men Type: BLOOD SPECIMENOrdering Facility: [facility] Address: [address] [place] [address] Result Comment: <100 mg/dL, Optimal 100-129 mg/dL, Near optimal/above optimal 130-159 mg/dL, Borderline high 160-189 mg/dL, High >189 mg/dL, Very high Secondary prevention optimal LDL Cholesterol levels are recommended to be < 70 mg/dL Performed By: #### 2 4322-8, , ####[facility] LABCLIA [id number] [place] [address] [place] Cholesterol in LDL/Cholesterol in HDL [Mass ratio] 3.31 {ratio} High <2.54 [facility] Comment on above: Order Comment: Speci men Type: BLOOD SPECIMENOrdering Facility: [facility] Address: [address] [place] [address] Result Comment: Refe dina: 1. National Cholesterol Education Program ATP III Guideline At-A-Glance Quick Desk Reference: National Heart, Lung, and Blood Butler. National Institutes of Health. 2001: NIH Publication No. 01-3305. 2. An International Atherosclerosis Society position paper: global recommendations for the management of dyslipidemia: executive summary, Atherosclerosis. 2014: 232(2):410-413. Performed By: #### 2 4323-8, , ####[facility] LABCLIA [id number] [place] [address] [place] Cholesterol in VLDL [Mass/Vol] 35 mg/dL High <30 [facility] Comment on above: Order Comment: Speci men Type: BLOOD SPECIMENOrdering Facility: [facility] Address: [address] [place] [address] Performed By: #### 2 432-8, , ####[facility] LABCLIA [id number] [address] [address] [place] Cholesterol non HDL [Mass/Vol] 194 mg/dL High <130 [facility] Comment on above: Order Comment: Speci men Type: BLOOD SPECIMENOrdering Facility: [facility] [facility] Address: [address] [place] [address] Result Comment: <130 mg/dL, Optimal 130-159 mg/dL, Near optimal/above optimal 160-189 mg/dL, Borderline high 190-219 mg/dL, High >219 mg/dL, Very high Secondary prevention optimal non HDL Cholesterol levels are recommended to be <100 mg/dL Performed By: #### 2 8, , ####[facility] LABCLIA [id number] [place] [address] [place] Cholesterol.total/Chol esterol in HDL [Mass ratio] 5.04 {ratio} Normal <5.10 [facility] Comment on above: Order Comment: Speci men Type: BLOOD SPECIMENOrdering Facility: [facility] Address: [address] [place], [place] [id number] Performed By: #### 2 432-8, , ####[facility] LABCLIA [id number] [address] [address] [place] FASTING TIME 12 hrs Normal [facility] Comment on above: Order Comment: Speci men Type: BLOOD SPECIMENOrdering Facility: [facility] Address: [address] [place] [address] Performed By: #### 2 432-8, , ####[facility] LABCLIA [id number] [address] [address] [place] Triglyceride [Mass/Vol] 174 mg/dL High <150 [facility] Comment on above: Order Comment: Speci men Type: BLOOD SPECIMENOrdering Facility: [facility] Address: [address] [place] [address] Result Comment: <150 mg/dL, Normal 150-199 mg/dL, Borderline high 200-499 mg/dL, High >499 mg/dL, Very high Performed By: #### 2 4323-8, 38419-3, 81298-5 ####[facility] LABCLIA [id number] [place] [address] [place] Magnesium SerPl-mCncon 11-06 Magnesium [Mass/Vol] 2.2 mg/dL Normal 1.7-2.3 [facility] Comment on above: Order Comment: Speci men Type: BLOOD SPECIMENOrdering Facility: [facility] Address: [address] [place] [address] Performed By: #### 2 4323-8, 68032-8, 05917-2 ####[facility] LABCLIA [id number] [place] [address] [place] CBC panel Auto (Bld)on 11-05 Erythrocyte distribution width (RBC) [Ratio] 13.7 % 11.5 - 15.0 % [facility] Hematocrit (Bld) [Volume fraction] 45.7 % 36.0 - 46.0 % [facility] Hemoglobin (Bld) [Mass/Vol] 14.4 g/dL 11.5 - 15.5 g/dL [facility] MCH (RBC) [Entitic mass] 30.3 pg 26.0 - 34.0 pg [facility] MCHC (RBC) [Mass/Vol] 31.5 g/dL 30.5 - 36.0 g/dL [facility] MCV (RBC) [Entitic vol] 96.2 fL 80.0 - 100.0 fL [facility] Nucleated RBC (Bld) [#/Vol] <0.01 k/uL [facility] Platelet mean volume (Bld) [Entitic vol] 10.7 fL 9.0 - 12.7 fL [facility] Platelets (Bld) [#/Vol] 288 10*3/uL 150 - 400 k/uL [facility] RBC (Bld) [#/Vol] 4.75 10*6/uL 3.90 - 5.2 0 m/uL [facility] WBC (Bld) [#/Vol] 7.58 10*3/uL 3.70 - 11.00 k/uL [facility] Comprehensive metabolic 2000 [facility] 11-05-2022 Albumin [Mass/Vol] 4.3 g/dL 3.9 - 4.9 g/dL [facility] ALP [Catalytic activity/Vol] 100 U/L 34 - 123 U/L [facility] ALT [Catalytic activity/Vol] 11 U/L 7 - 38 U/L [facility] Anion gap [Moles/Vol] 10 mmol/L 9 - 18 mmol/L [facility] AST [Catalytic activity/Vol] 18 U/L 13 - 35 U/L [facility] Bilirubin [Mass/Vol] 0.6 mg/dL 0.2 - 1 .3 mg/dL [facility] Calcium [Mass/Vol] 9.9 mg/dL 8.5 - 10. 2 mg/dL [facility] Chloride [Moles/Vol] 105 mmol/L 97 - 10 5 mmol/L [facility] CO2 [Moles/Vol] 27 mmol/L 22 - 30 mmol/L [facility] Creatinine [Mass/Vol] 0.87 mg/dL 0.58 - 0.96 mg/dL [facility] Estimated Glomerular Filtration Rate 67 mL/min/1.73m >=60 mL/min/1.73 m [facility] Glucose [Mass/Vol] 86 mg/dL 74 - 99 mg/dL [facility] Potassium [Moles/Vol] 5.2 mmol/L High 3.7 - 5.1 mmol/L [facility] Protein [Mass/Vol] 7.2 g/dL 6.3 - 8.0 g/dL [facility] Sodium [Moles/Vol] 142 mmol/L 136 - 144 mmol/L [facility] Urea nitrogen [Mass/Vol] 17 mg/dL 7 - 21 mg/dL [facility] Lipid 1996 panelon Cholesterol [Mass/Vol] 240 mg/dL High <200 mg/dL [facility] Cholesterol in HDL [Mass/Vol] 57 mg/dL >39 mg/dL [facility] Cholesterol in LDL [Mass/Vol] 161 mg/dL High <100 mg/dL [facility] Cholesterol in LDL/Cholesterol in HDL [Mass ratio] 2.82 {ratio} High <2.54 [facility] Cholesterol in VLDL [Mass/Vol] 22 mg/dL <30 mg/dL [facility] Cholesterol non HDL [Mass/Vol] 183 mg/dL High <130 mg/dL [facility] Cholesterol.total/Chol esterol in HDL [Mass ratio] 4.21 {ratio} <5.10 [facility] Fasting Time 18 hrs [facility] Triglyceride [Mass/Vol] 111 mg/dL <150 mg/dL [facility] MAGNESIUM [facility] 11-05-2022 Magnesium [Mass/Vol] 2.3 mg/dL 1.7 - 2 .3 mg/dL [facility] T4 FREE/FREE THYROX 2022 Free T4 [Mass/Vol] 1.1 ng/dL 0.9 - 1.7 ng/dL [facility] TSH [facility] 11-05-2022 TSH Qn 2.230 m[IU]/L 0.270 - 4.200 mIU/L [facility] VITAMIN D 25 HYDROXYon 11-05 25-hydroxyvitamin D3 [Mass/Vol] 48.5 ng/mL 31.0 - 80.0 ng/mL [facility] Vital Signs Date Time Vital Sign Value Performing Clinician Facility 09-19-2024 08:14-0400 Body temperature 97.9 [degF] Dr. Karen Resendiz MD Work Phone: [facility] 09-19-2024 08:14-0400 Diastolic blood pressure 65 mm[Hg] Dr. Karen Resendiz MD Work Phone: [facility] 09-19-2024 08:14-0400 Heart rate 74 /min Dr. Karen Resendiz MD Work Phone: [facility] 09-19-2024 08:14-0400 Respiratory rate 16 /min Dr. Karen Resendiz MD Work Phone: [facility] 09-19-2024 08:14-0400 SaO2% (BldA) [Mass fraction] 100 % Dr. Karen Resendiz MD Work Phone: [facility] 09-19-2024 08:14-0400 Systolic blood pressure 132 mm[Hg] Dr. Karen Resendiz MD Work Phone: [facility] 09-19-2024 03:55-0400 Body height 157.[address] Karen Resendiz MD Work Phone: [phone] [place] [address] 09-19-2024 03:55-0400 Body mass index (BMI) [Ratio] 25.4 kg/m2 Dr. Karen Resendiz MD Work Phone: [facility] 09-19-2024 03:55-0400 Body weight 63.[address] Karen Resendiz MD Work Phone: [facility] 09-08-2024 14:25-0400 Body mass index (BMI) [Ratio] 25.16 kg/m2 Nelli Eric [employer] Work Phone: [facility] 09-08-2024 14:25-0400 Body weight 58.9 kg Nelli Eric [employer] Work Phone: [facility] 09-08-2024 14:25-0400 Diastolic blood pressure 72 mm[Hg] Nelli Eric [employer] Work Phone: [facility] 09-08-2024 14:25-0400 Heart rate 68 /min Nelli Eric [employer] Work Phone: [facility] 09-08-2024 14:25-0400 Respiratory rate 16 /min Nelli Eric [employer] Work Phone: [facility] 09-08-2024 14:25-0400 SaO2% (BldA) [Mass fraction] 98 % Nelli Eric [employer] Work Phone: [facility] 09-08-2024 14:25-0400 Systolic blood pressure 128 mm[Hg] Nelli Eric [employer] Work Phone: [facility] 09-07-2024 08:12-0400 Body height 157.[address] Karen Resendiz MD Work Phone: [facility] 09-07-2024 08:12-0400 Body mass index (BMI) [Ratio] 23.6 kg/m2 Dr. Karen Resendiz MD Work Phone: [facility] 09-07-2024 08:12-0400 Body weight 58.[address] Karen Resendiz MD Work Phone: [facility] 09-07-2024 08:12-0400 Diastolic blood pressure 55 mm[Hg] Dr. Karen Resendiz MD Work Phone: [facility] 09-07-2024 08:12-0400 Heart rate 73 /min Dr. Karen Resendiz MD Work Phone: [facility] 09-07-2024 08:12-0400 Respiratory rate 18 /min Dr. Karen Resendiz MD Work Phone: [facility] 09-07-2024 08:12-0400 Systolic blood pressure 136 mm[Hg] Dr. Karen Resendiz MD Work Phone: [facility] 06-30-2024 16:47-0400 Body temperature 98.2 [degF] Karen Resendiz MD Work Phone: [facility] 06-30-2024 16:47-0400 Diastolic blood pressure 62 mm[Hg] Karen Resendiz MD Work Phone: [facility] 06-30-2024 16:47-0400 Heart rate 74 /min Karen Rseendiz MD Work Phone: [facility] 06-30-2024 16:47-0400 SaO2% (BldA) [Mass fraction] 97 % Karen Resendiz MD Work Phone: [facility] 06-30-2024 16:47-0400 Systolic blood pressure 122 mm[Hg] Karen Resendiz MD Work Phone: [facility] 05-11-2024 13:14-0400 Body height 153 cm Karen Resendiz MD Work Phone: [facility] 05-11-2024 13:14-0400 Body mass index (BMI) [Ratio] 27.13 kg/m2 Karen Resendiz MD Work Phone: [facility] 05-11-2024 13:14-0400 Body weight 63.5 kg Karen Resendiz MD Work Phone: [facility] 05-11-2024 13:14-0400 Diastolic blood pressure 58 mm[Hg] Karen Resendiz MD Work Phone: [facility] 05-11-2024 13:14-0400 Heart rate 80 /min Karen Resendiz MD Work Phone: [facility] 05-11-2024 13:14-0400 Respiratory rate 16 /min Karen Resendiz MD Work Phone: [facility] 05-11-2024 13:14-0400 Systolic blood pressure 122 mm[Hg] Karen Resenidz MD Work Phone: [facility] 03-12-2024 11:41-0500 Body mass index (BMI) [Ratio] 25.94 kg/m2 Alexei Skelton MD Work Phone: [facility] 03-12-2024 11:41-0500 Body temperature 100 [degF] Alexei Skelton MD Work Phone: [facility] 03-12-2024 11:41-0500 Body weight 63.3 kg Alexei Skelton MD Work Phone: [facility] 03-12-2024 11:41-0500 Diastolic blood pressure 60 mm[Hg] Alexei Skelton MD Work Phone: [facility] 03-12-2024 11:41-0500 Heart rate 81 /min Alexei Skelton MD Work Phone: [facility] 03-12-2024 11:41-0500 Respiratory rate 20 /min Alexei Skelton MD Work Phone: [facility] 03-12-2024 11:41-0500 SaO2% (BldA) [Mass fraction] 95 % Alexei Skelton MD Work Phone: [facility] 03-12-2024 11:41-0500 Systolic blood pressure 128 mm[Hg] Alexei Skelton MD Work Phone: [facility] 01-27-2024 12:40-0500 Diastolic blood pressure 60 mm[Hg] Karen Resendiz MD Work Phone: [facility] 01-27-2024 12:40-0500 Systolic blood pressure 122 mm[Hg] Karen Resendiz MD Work Phone: [facility] 01-27-2024 11:56-0500 Body mass index (BMI) [Ratio] 24.88 kg/m2 Karen Resendiz MD Work Phone: [facility] 01-27-2024 11:56-0500 Body temperature 97.5 [degF] Karen Resendiz MD Work Phone: [facility] 01-27-2024 11:56-0500 Body weight 60.7 kg Karen Resendiz MD Work Phone: [facility] 01-27-2024 11:56-0500 Heart rate 82 /min Karen Resendiz MD Work Phone: [facility] 01-27-2024 11:56-0500 Respiratory rate 21 /min Karen Resendiz MD Work Phone: [facility] 01-27-2024 11:56-0500 SaO2% (BldA) [Mass fraction] 97 % Karen Resendiz MD Work Phone: [facility] 01-26-2024 12:00-0500 Body temperature 98.78 [degF] DR GERSON LY MD [facility] 01-26-2024 12:00-0500 Diastolic Blood Pressure Non-Invasive 61 mm[Hg] DR GERSON LY MD [address] [place] [address] 01-26-2024 12:00-0500 Mean blood pressure 78 mm[Hg] DR GERSON LY MD [address] [place] [address] 01-26-2024 12:00-0500 Respiratory rate 18 /min DR GERSON LY MD [address] [place] [address] 01-26-2024 12:00-0500 Systolic Blood Pressure Non-Invasive 139 mm[Hg] DR GERSON LY MD [address] [place] [address] 01-26-2024 09:18-0500 Heart rate 68 /min DR GERSON LY MD [address] [place] [address] 01-26-2024 09:18-0500 Reason For Taking VItal Signs DR GERSON LY MD [address] [place] [address] 01-26-2024 06:57-0500 Heart rate 73 /min DR GERSON LY MD [address] [place] [address] 01-26-2024 06:54-0500 Body temperature 96.8 [degF] DR GERSON LY MD [address] [place] [address] 01-26-2024 06:54-0500 Diastolic Blood Pressure Non-Invasive 55 mm[Hg] DR GERSON LY MD [address] [place] [address] 01-26-2024 06:54-0500 Heart rate 76 /min DR GERSON LY MD [address] [place] [address] 01-26-2024 06:54-0500 Mean blood pressure 91 mm[Hg] DR GERSON LY MD [address] [place] [address] 01-26-2024 06:54-0500 Reason For Taking VItal Signs DR GERSON LY MD [address] [place] [address] 01-26-2024 06:54-0500 Respiratory rate 16 /min DR GERSON LY MD [address] [place] [address] 01-26-2024 06:54-0500 Systolic Blood Pressure Non-Invasive 163 mm[Hg] DR GERSON LY MD [address] [place] [address] 01-26-2024 04:17-0500 Diastolic Blood Pressure Non-Invasive 54 mm[Hg] DR GERSON LY MD [address] [place] [address] 01-26-2024 04:17-0500 Reason For Taking VItal Signs DR GERSON LY MD [address] [place] [address] 01-26-2024 04:17-0500 Respiratory rate 16 /min DR GERSON LY MD [address] [place] [address] 01-26-2024 04:17-0500 Systolic Blood Pressure Non-Invasive 138 mm[Hg] DR GERSON LY MD [address] [place] [address] 01-25-2024 22:55-0500 Blood Pressure Cuff Size DR GERSON LY MD [address] [place] [address] 01-25-2024 22:55-[address] GERSON LY MD [address] [place] [address] 01-25-2024 22:55-[address] GERSON LY MD [address] [place] [address] 01-25-2024 22:55-0500 Body temperature 98.06 [degF] DR GERSON LY MD [address] [place] [address] 01-25-2024 22:55-0500 Mean blood pressure 89 mm[Hg] DR GERSON LY MD [address] [place] [address] 01-25-2024 19:26-0500 Blood Pressure Cuff Size DR GERSON LY MD [address] [place] [address] 01-25-2024 19:26-[address] GERSON LY MD [address] [place] [address] 01-25-2024 19:26-[address] GERSON LY MD [address] [place] [address] 01-25-2024 19:21-0500 Blood Pressure Cuff Size DR GERSON LY MD [address] [place] [address] 01-25-2024 19:21-[address] GERSON LY MD [address] [place] [address] 19:21-[address] GERSON LY MD [address] [place] [address] 01-25-2024 05:37-0500 Heart rate 81 /min DR GERSON LY MD [address] 01-25-2024 02:21-0500 Body height 157.[address] GERSON LY MD [address] [place] [address] 01-25-2024 02:21-0500 Body weight 61.[address] GERSON LY MD [address] 01-25-2024 02:21-0500 Body weight 24.64 kg/m2 DR GERSON LY MD [address] [place] [address] 01-25-2024 02:10-0500 Heart rate 82 /min DR GERSON LY MD [address] 01-20-2024 15:54-0500 Reason For Taking VItal Signs RODRIGO HAYES MD [facility] 01-20-2024 14:47-0500 Blood Pressure Cuff Size RODRIGO HAYES MD [facility] 01-20-2024 14:47-0500 Blood Pressure Location RODRIGO HAYES MD [facility] 01-20-2024 14:47-0500 Blood Pressure Method RODRIGO HAYES MD [facility] 01-20-2024 14:47-0500 Body temperature 97.52 [degF] RODRIGO HAYES MD [facility] 01-20-2024 14:47-0500 Diastolic Blood Pressure Non-Invasive 52 mm[Hg] RODRIGO HAYES MD [address] [place] [address] 01-20-2024 14:47-0500 Heart rate 77 /min RODRIGO HAYES MD [address] [place] [address] 14:47-0500 Reason For Taking VItal Signs RODRIGO HAYES MD [address] [place] [address] 01-20-2024 14:47-0500 Respiratory rate 20 /min RODRIGO HAYES MD [address] [place] [address] 01-20-2024 14:47-0500 Systolic Blood Pressure Non-Invasive 118 mm[Hg] RODRIGO HAYES MD [address] [place] [address] 01-20-2024 11:04-0500 Body temperature 98.06 [degF] RODRIGO HAYES MD [address] [place] [address] 01-20-2024 11:04-0500 Diastolic Blood Pressure Non-Invasive 42 mm[Hg] RODRIGO HAYES MD [address] [place] [address] 01-20-2024 11:04-0500 Heart rate 72 /min RODRIGO HAYES MD [address] [place] [address] 01-20-2024 11:04-0500 Mean blood pressure 71 mm[Hg] RODRIGO HAYES MD [address] [place] [address] 01-20-2024 11:04-0500 Reason For Taking VItal Signs RODRIGO HAYES MD [address] [place] [address] 01-20-2024 11:04-0500 Respiratory rate 26 /min RODRIGO HAYES MD [address] [place] [address] 01-20-2024 11:04-0500 Systolic Blood Pressure Non-Invasive 127 mm[Hg] RODRIGO HAYES MD [address] [place] [address] 01-20-2024 08:52-0500 Heart rate 88 /min RODRIGO HAYES MD [address] [place] [address] 01-20-2024 08:48-0500 Blood Pressure Cuff Size RODRIGO HAYES MD [address] [place] [address] 01-20-2024 08:48-0500 Blood Pressure Location RODRIGO HAYES MD [address] [place] [address] 08:48-0500 Blood Pressure Method RODRIGO HAYES MD [address] [place] [address] 01-20-2024 08:48-0500 Body temperature 97.52 [degF] RODRIGO HAYES MD [address] [place] [address] 01-20-2024 08:48-0500 Diastolic Blood Pressure Non-Invasive 57 mm[Hg] RODRIGO HAYES MD [address] [place] [address] 01-20-2024 08:48-0500 Heart rate 91 /min RODRIGO HAYES MD [address] [place] [address] 01-20-2024 08:48-0500 Mean blood pressure 72 mm[Hg] RODRIGO HAYES MD [address] [place] [address] 01-20-2024 08:48-0500 Respiratory rate 26 /min RODRIGO HAYES MD [address] [place] [address] 01-20-2024 08:48-0500 Systolic Blood Pressure Non-Invasive 117 mm[Hg] RODRIGO HAYES MD [address] [place] [address] 01-20-2024 04:45-0500 Blood Pressure Cuff Size RODRIGO HAYES MD [address] [place] [address] 01-20-2024 04:45-0500 Blood Pressure Location RODRIGO HAYES MD [address] [place] [address] 01-20-2024 04:45-0500 Blood Pressure Method RODRIGO HAYES MD [address] [place] [address] 01-19-2024 21:30-0500 Mean blood pressure 68 mm[Hg] RODRIGO HAYES MD [address] [place] [address] 01-19-2024 19:11-0500 Heart rate 80 /min RODRIGO HAYES MD [address] [place] [address] 01-19-2024 10:19-0500 Heart rate 135 /min RODRIGO HAYES MD [address] [place] [address] 01-18-2024 23:08-0500 Heart rate 104 /min RODRIGO HAYES MD [address] [place] [address] 01-18-2024 19:00-0500 Heart rate 118 /min RODRIGO HAYES MD [address] [place] [address] 01-18-2024 04:51-0500 Body height 157.5 cm RODRIGO HAYES MD [address] [place] [address] 01-18-2024 04:51-0500 Body weight 66 kg RODRIGO HAYES MD [address] [place] [address] 01-18-2024 04:51-0500 Body weight 26.61 kg/m2 RODRIGO HAYES MD [address] [place] [address] 01-01-2024 15:26-0500 Diastolic blood pressure 59 mm[Hg] Maddie Sahu [employer] Work Phone: [facility] Comment on above: bp average 01-01-2024 15:26-0500 Heart rate 68 /min Maddie Sahu [employer] Work Phone: [facility] 01-01-2024 15:26-0500 Systolic blood pressure 157 mm[Hg] Maddie Sahu [employer] Work Phone: [facility] Comment on above: bp average 01-01-2024 15:18-0500 Body mass index (BMI) [Ratio] 25.49 kg/m2 Maddie Sahu [employer] Work Phone: [facility] 01-01-2024 15:18-0500 Body weight 62.2 kg Maddie Sahu [employer] Work Phone: [facility] 01-01-2024 15:18-0500 Respiratory rate 16 /min Maddie Sahu [employer] Work Phone: [facility] 11-07-2023 15:18-0400 Diastolic blood pressure 72 mm[Hg] Nelli Eric [employer] Work Phone: [facility] 11-07-2023 15:18-0400 Systolic blood pressure 136 mm[Hg] Nelli Eric [employer] Work Phone: [facility] 11-07-2023 14:57-0400 Body mass index (BMI) [Ratio] 25.86 kg/m2 Nelli Eric [employer] Work Phone: [facility] 11-07-2023 14:57-0400 Body weight 63.1 kg Nelli Eric [employer] Work Phone: [facility] 11-07-2023 14:57-0400 Heart rate 60 /min Nelli Eric [employer] Work Phone: [facility] 11-07-2023 14:57-0400 SaO2% (BldA) [Mass fraction] 99 % Nelli Eric [employer] Work Phone: [facility] 05-07-2023 11:27-0400 Diastolic blood pressure 58 mm[Hg] Karen Resendiz MD Work Phone: [facility] 05-07-2023 11:27-0400 Systolic blood pressure 138 mm[Hg] Karen Resendiz MD Work Phone: [facility] 11-02-2022 11:46-0400 Diastolic blood pressure 60 mm[Hg] Karen Resendiz MD Work Phone: [facility] 11-02-2022 11:46-0400 Systolic blood pressure 148 mm[Hg] Karen Resendiz MD Work Phone: [facility] 11-02-2022 10:46-0400 Body height 156.2 cm Karen Resendiz MD Work Phone: [facility] 11-02-2022 10:46-0400 Body temperature 98.01 [degF] Karen Resendiz MD Work Phone: [facility] 11-02-2022 10:46-0400 Body weight 62.6 kg Karen Resendiz MD Work Phone: [facility] 11-02-2022 10:46-0400 Heart rate 63 /min Karen Resendiz MD Work Phone: [facility] 11-02-2022 10:46-0400 Respiratory rate 12 /min Karen Resendiz MD Work Phone: [facility] 11-02-2022 10:46-0400 SaO2% (BldA) [Mass fraction] 98 % Karen Resendiz MD Work Phone: [facility] 01-15-2022 15:26-0500 Body weight 59.42 kg Karen Resendiz MD Work Phone: [facility] 01-15-2022 15:26-0500 Diastolic blood pressure 80 mm[Hg] Karen Resendiz MD Work Phone: [facility] 01-15-2022 15:26-0500 Heart rate 61 /min Karen Resendiz MD Work Phone: [facility] 01-15-2022 15:26-0500 SaO2% (BldA) [Mass fraction] 98 % Karen Resendiz MD Work Phone: [facility] 01-15-2022 15:26-0500 Systolic blood pressure 142 mm[Hg] Karen Resendiz MD Work Phone: [facility] Encounters Encounter Date Encounter Type Care Provider Facility Start: 10-27-2024 ambulatory Joanne Apple NP Facili ty:[facility] Start: 09-30-2024 Non-patient / Non-visit Joanne roldan NP-C -[facility] Work Phone: Start: 09-30-2024 ambulatory Joanne Apple 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 Darell TERRAZAS -[facility] Start: 09-28-2024 End: 09-28-[address] Karen Resendiz MD Work Phone: -Cardiovascular Services Start: 09-28-2024 End: 09-28-2024 Patient encounter procedure Joanne WEAVER -[facility] Services Work Phone: Start: 09-28-2024 End: 09-28-2024 [facility] Start: 09-24-2024 End: 09-24-2024 [facility] Start: 09-20-2024 End: 09-20-2024 ambulatory Pat Noble RN Marketing Proposal Specialist Management Comment on above: ACEverardo SMALL RN ( Chart review per payor request) Start: 09-19-2024 End: 09-19-2024 Emergency department patient visit Dr. Kraen Resendiz MD Work Phone: -Emergency Department Work Phone: Start: 09-08-2024 End: 09-08-2024 [facility] Start: 09-08-2024 End: 09-08-2024 Patient encounter procedure Nelli Reyes APRN.CNP Work Phone: [facility] [place] Comment on above: Grief reaction (Prim lisa Dx); Stage 3b chronic kidney disease (HCC); Unintentional weight loss; IFG (impaired fasting glucose); Recurrent major depressive disorder, in partial remission; Essential hypertension; Adjustment insomnia; Elevated TSH Start: 09-07-2024 End: 09-07-2024 Patient encounter procedure Joanne WEAVER -[facility] Work Phone: Start: 09-07-2024 End: 09-07-[address] Karen Resendiz MD Work Phone: -[facility] Start: 09-07-2024 End: 09-07-2024 ambulatory Karen Resendiz Facility:[facility] Start: 06-30-2024 End: 06-30-2024 ambulatory KAREN RESENDIZ Facility:[facility] Start: 06-30-2024 End: 06-30-2024 Office outpatient visit 15 minutes Karen Resendiz MD Work Phone: [facility] [place] Comment on above: Acute bronchitis, un specified organism (Primary Dx); Wheezing; Acute cough; Recent bereavement Start: 05-11-2024 End: 05-11-2024 ambulatory KAREN RESENDIZ Facility:[facility] Start: 05-11-2024 End: 05-11-2024 Patient encounter procedure Karen Resendiz MD Work Phone: [facility] [place] Comment on above: Medicare annual well ness visit, subsequent (Primary Dx); Bilateral lower extremity edema; Generalized anxiety disorder; Recurrent major depressive disorder, in partial remission; Essential hypertension; Vitamin D deficiency; S/P angioplasty with stent; Coronary artery disease involving [place] coronary artery of [place] heart without angina pectoris; Fibromyalgia; Encounter for immunization; Encounter for long-term current use of medication; Pain in right hip; [facility] (current) use of anticoagulants; Dermatitis, unspecified Start: 04-14-2024 End: 04-14-2024 ambulatory Tessie VELAZQUEZ Facility:[facility] Start: 03-26-2024 End: 03-26-2024 ambulatory Karen Resendiz Facility:[facility] Start: 03-15-2024 End: 03-16-2024 Refill Karen Resendiz MD Work Phone: [facility] [place] Comment on above: Refill Request Start: 03-12-2024 End: 03-12-2024 Subsequent hospital visit by physician [facility] [place] Work Phone: Radiology Comment on above: [...] myocardial infarction (STEMI); Coronary artery disease involving [place] coronary artery of [place] heart with angina pectoris (HCC); S/P angioplasty with stent Start: 02-20-2024 End: 02-20-2024 ambulatory Karen Crowdermanpreet Facility:[facility] Start: 02-02-2024 End: 02-02-2024 ambulatory Korina Billy RN Work Phone: [employer]ist Management Start: 02-02-2024 End: 02-02-2024 Telephone follow-up Korina Billy RN Work Phone: [employer]ist Management Comment on above: Transition Of Care ( Follow up day 14) Weekly phone contact (Recurring) for Transitional Care Management Start: 01-27-2024 End: 01-27-2024 Transitional care manage srvc 7 day discharge Karen Resendiz MD Work Phone: [facility] [place] Comment on above: Essential hypertensi on (Primary Dx); Coronary artery disease involving [place] coronary artery of [place] heart without angina pectoris; S/P angioplasty with stent; HYPERCHOLESTEROLEMIA; Atopic dermatitis, unspecified type; Fibromyalgia; Gastro-esophageal reflux disease without esophagitis Start: 01-27-2024 End: 01-27-2024 ambulatory KAREN Brenda CROWDERMANPREET Facility:[facility] Start: 01-26-2024 End: 01-26-2024 ambulatory Hermila Gonsalves RN [employer] Proposal [employer]ist Management Comment on above: ACM LUCIAN RN ( No action needed.) Start: 01-25-2024 End: 01-26-2024 Evaluation and management of inpatient DR GERSON LY MD [facility] Start: 01-24-2024 End: 01-25-2024 Emergency department patient visit Karen Resendiz Facility:[facility] Start: 01-23-2024 End: 01-23-2024 Telephone encounter Karen Resendiz MD Work Phone: [facility] [place] Comment on above: Patient Question Start: 01-21-2024 End: 01-21-2024 Patient Outreach Korina Billy RN Work Phone: Marketing Proposal Specialist Management Comment on above: Transition Of Care ( Hospital discharge [facility] 01/19/2024 - Initial outreach/) Initial phone contact for Transitional Care Management Start: 01-18-2024 End: 01-20-2024 Evaluation and management of inpatient RODRIGO HAYES MD [facility] Start: 01-17-2024 End: 01-18-2024 ambulatory Cristina Tellez RN NURSE [employer]IC[employer] BILLER Comment on above: Headache; High blood pressure Encounter for medica l assessment (Primary Dx) Start: 01-17-2024 End: 01-17-2024 Patient encounter status Sheila Frank MD Work Phone: [facility] Work Phone: Start: 01-17-2024 End: 01-17-2024 Telemedicine consultation with patient Sheila Frank MD Work Phone: [facility] Start: 01-02-2024 End: 01-02-2024 Telephone encounter Karen Resendiz MD Work Phone: [facility] [place] Comment on above: Insurance Authorizat ion Start: 01-01-2024 End: 01-01-2024 ambulatory KAREN RESENDIZ Facility:[facility] Start: 01-01-2024 End: 01-01-2024 Office outpatient visit 25 minutes Maddei Sahu APRN.CNS Work Phone: [facility] [place] Comment on above: Essential hypertensi on (Primary Dx) Start: 12-31-2023 End: 01-01-2024 ambulatory Karen Resendiz MD Work Phone: [facility] [place] Comment on above: Blood Pressure Refill Request Start: 11-10-2023 End: 11-10-2023 Telephone encounter Nelli Reyes APRN.[employer] Work Phone: [facility] [place] Comment on above: Results Start: 11-07-2023 End: 11-07-2023 ambulatory KAREN Brenda RESENDIZ Facility:[facility] Start: 11-07-2023 End: 11-07-2023 Patient encounter procedure Nelli Reyes APRN.[employer] Work Phone: [facility] [place] Comment on above: Vitamin D deficiency (Primary Dx); Other insomnia; Eczema, unspecified type; Essential hypertension; Recurrent major depressive disorder, in partial remission (HCC) Start: 08-15-2023 Refill Karen roldan MD Work Phone: [facility] [place] Comment on above: Refill Request Start: 05-07-2023 End: 05-07-2023 Office outpatient visit 25 minutes Karen Resendiz MD Work Phone: [facility] [place] Comment on above: Essential hypertensi on (Primary Dx); Dermatitis; Recurrent major depressive disorder, in partial remission (HCC); Encounter for immunization; Encounter for long-term current use of medication Start: 12-05-2022 Refill Karen roldan MD Work Phone: [address] [place] [address] Comment on above: Refill Request Start: 11-02-2022 End: 11-02-2022 Office outpatient visit 40 minutes Karen Resendiz MD Work Phone: [facility] [place] Comment on above: Pruritic dermatitis (Primary Dx); Essential hypertension; Generalized anxiety disorder; Recurrent major depressive disorder, in partial remission (HCC); Vaginal burning; Vaginal atrophy; Need for influenza vaccination; Vitamin D deficiency Start: 10-22-2022 ambulatory Veronika Siddiqi MA [facility] Comment on above: Population Health Na vigation Outreach ([employer] Care Gaps ) Start: 08-21-2022 ambulatory Soco Cummings MA [facility] Comment on above: Population Health Na vigation Outreach ([employer] care gaps) Start: 02-05-2022 Telephone encounter Karen kennedy MD Work Phone: [facility] [place] Comment on above: rash persisting Start: 01-17-2022 Telephone encounter Karen kennedy MD Work Phone: [facility] [place] Comment on above: Medication Problem Start: 01-15-2022 End: 01-15-2022 Office outpatient visit 40 minutes Karen Resendiz MD Work Phone: [facility] [place] Comment on above: Irritable bowel synd raulito with diarrhea (Primary Dx); S/P cholecystectomy; Dermatitis; Chronic vaginitis; Recurrent major depressive disorder, in partial remission (HCC); Essential hypertension; Generalized anxiety disorder Start: 01-04-2022 Refill Kecia TAYLOR RN.[employer] Work Phone: OB/Gynecology Comment on above: Refill Request Start: 12-20-2021 Refill Kecia TAYLOR RN.[facility] Work Phone: OB/Gynecology Comment on above: Refill Request Start: 12-19-2021 Telephone encounter Kecia yousif APRN.[employer] Work Phone: OB/Gynecology Comment on above: Patient Update Start: 12-13-2021 Telephone encounter Kecia yousif APRN.[employer] Work Phone: OB/Gynecology Comment on above: Patient Update Start: 12-06-2021 Refill Kecia TAYLOR RN.[facility] Work Phone: OB/Gynecology Comment on above: Refill Request Start: 11-29-2021 Telephone encounter Kecia yousif APRN.[employer] Work Phone: OB/Gynecology Comment on above: Refill Request Start: 07-18-2021 End: 07-19-2021 Office outpatient visit 25 minutes Karen Resendiz MD Work Phone: [facility] [place] Comment on above: Fibromyalgia (Primar y Dx); Generalized anxiety disorder; Vitamin D deficiency; Fecal smearing; Recurrent major depressive disorder, in partial remission (HCC); Essential hypertension; Mixed hyperlipidemia Start: 06-19-2021 Refill Karen roldan MD Work Phone: [facility] [place] Comment on above: Refill Request Procedures Date Procedure Procedure Detail Performing Clinician Start: 09-19-[address] Karen Resendiz MD Work Phone: Start: 09-19-2024 Plain chest X-ray Dr. Puma Resendiz MD Work Phone: Start: 03-12-2024 Radiologic exam ches t 2 [...] of coronary artery stent placement Joanne Apple ROTOR CASTING MACHINE SETUP OPERATORDelano Plan of Treatment Date Care Activity Detail Author Start: 11-06-2026 Diabetes Screening Diabetes Screening [facility] Start: 11-04-2025 Diabetes Screening Diabetes Screening [facility] Start: 05-20-2025 End: 05-20-2025 Patient encounter procedure 05/20/2025 3:40 PM EDT Office Visit [facility] [place] [address] [place], [place] [id number] Karen Resendiz MD [address] [place], [place] [address] medicare wellness [facility] [place] Comment on above: medicare wellness Start: 05-11-2025 Covid-19 Vaccine () Covid-19 Vaccine () [facility] Comment on above: Postponed from 10/12/2023 (Declined at t his time) Start: 01-14-2025 DIABETES SCREEN DIABETES SCREEN [facility] Start: 01-14-2025 Diabetes Screening Diabetes Screening [facility] Start: 11-19-2024 End: 11-19-2024 Patient encounter procedure 11/19/2024 3:00 PM EDT Office Visit [facility] [place] [address] [place], [place] [id number] Karen Resendiz MD [address] [place], [place] [id number] 6 month f/up [facility] [place] Comment on above: 6 month f/up Start: 11-06-2024 Hepatitis B surface antibody level LDL Cholesterol [facility] Start: 11-03-2024 End: 02-02-2025 Hemoglobin A1c in Blood HEMOGLOBIN A1C Lab Routine IFG (impaired fasting glucose) Expected: 11/03/2024, Expires: 02/02/2025 [facility] Comment on above: Expected: 11/03/2024, Expires: Start: 11-03-2024 End: 02-02-2025 Thyrotropin [Units/volume] in Serum or Plasma THYROID STIMULATING HORMONE Lab Routine Elevated TSH Expected: 11/03/2024, Expires: 02/02/2025 [facility] Work Phone: Comment on above: Expected: 11/03/2024, Expires: Start: 11-03-2024 End: 02-02-2025 Thyroxine (T4) free [Mass/volume] in Serum or Plasma T4 FREE/FREE THYROXINE Lab Routine Elevated TSH Expected: 11/03/2024, Expires: 02/02/2025 [facility] Comment on above: Expected: 11/03/2024, Expires: Start: 11-03-2024 End: 02-02-2025 Triiodothyronine (T3) Free [Mass/volume] in Serum or Plasma T3, FREE Lab Routine Elevated TSH Expected: 11/03/2024, Expires: 02/02/2025 [facility] Comment on above: Expected: 11/03/2024, Expires: Start: 10-11-2024 End: 01-10-2025 25-hydroxyvitamin D3 [Mass/volume] in Serum or Plasma VITAMIN D 25 HYDROXY Lab Routine Vitamin D deficiency Expected: 10/11/2024 (Approximate), Expires: 01/10/2025 [facility] Work Phone: Comment on above: Expected: 10/11/2024 (Approximate), Expi res: 01/10/2025 Start: 10-11-2024 End: 01-10-2025 CBC panel - Blood by Automated count COMPLETE BLOOD COUNT Lab Routine Essential hypertension Encounter for long-term current use of medication Expected: 10/11/2024 (Approximate), Expires: 01/10/2025 [facility] Comment on above: Expected: 10/11/2024 (Approximate), Expi res: 01/10/2025 Start: 10-11-2024 End: 01-10-2025 Comprehensive metabolic 2000 panel - Serum or Plasma COMPREHENSIVE METABOLIC PANEL Lab Routine Essential hypertension Encounter for long-term current use of medication Expected: 10/11/2024 (Approximate), Expires: 01/10/2025 [facility] Comment on above: Expected: 10/11/2024 (Approximate), Expi res: 01/10/2025 Start: 10-11-2024 Influenza vaccination Influenza Vaccine (#1) [facility] Start: 10-11-2024 End: 01-10-2025 Lipid 1996 panel - Serum or Plasma LIPID PANEL, FASTING Lab Routine Essential hypertension Encounter for long-term current use of medication Expected: 10/11/2024 (Approximate), Expires: 01/10/2025 [facility] Comment on above: Expected: 10/11/2024 (Approximate), Expi res: 01/10/2025 Start: 10-11-2024 End: 01-10-2025 Magnesium [Mass/volume] in Serum or Plasma MAGNESIUM Lab Routine Encounter for long-term current use of medication Expected: 10/11/2024 (Approximate), Expires: 01/10/2025 [facility] Comment on above: Expected: 10/11/2024 (Approximate), Expi res: 01/10/2025 Start: 09-24-2024 End: 09-24-2024 Patient encounter procedure 09/24/2024 2:20 PM EDT Office Visit [facility] [place] [address] [place] [address] Karen Resendiz MD [address] [place] [address] ED Follow up [facility] [place] Comment on above: ED Follow up Start: 09-19-2024 [facility] Start: 09-19-2024 [facility] Start: 05-11-2024 End: 05-11-2024 Patient encounter procedure 05/11/2024 1:20 PM EDT Office Visit [facility] [place] [address] [facility] [place] [address] Karen Resendiz MD [address] [place] [address] Yearly [facility] [place] Comment on above: Yearly Start: 02-11-2024 Advance Directive Discussion Advance Directive Discussion [facility] Start: 01-29-2024 End: 01-29-2024 Patient encounter procedure 01/29/2024 3:00 PM EST Office Visit [facility] [place] [address] [facility] [place] [address] Maddie Sahu, JESSICA.HOUSE SHORER [address] [place] [address] blood pressure [facility] [place] Comment on above: blood pressure Start: 01-27-2024 End: 01-27-2024 Patient encounter procedure 01/27/2024 11:00 AM EST Office Visit [facility] [place] [address] [facility] [place] [address] Karen Resendiz MD [address] [place] [address] hospital f/u [facility] [place] Comment on above: hospital f/u Start: 01-01-2024 End: 01-01-2024 Patient encounter procedure 01/01/2024 3:00 PM EST Office Visit [facility] [place] [address] [facility] [place] [address] Maddie Sahu, JESSICA.HOUSE SHORER [address] [place] [address] elevated blood pressure [facility] [place] Comment on above: elevated blood pressure Start: 12-02-2023 DIABETES SCREEN DIABETES SCREEN [facility] Start: 11-07-2023 End: 11-07-2023 Patient encounter procedure 11/07/2023 3:00 PM EDT Office Visit [facility] [place] [address] [facility] [place] [address] Nelli Reyes APRN.[employer] [address] [place] [address] 6 month follow up [facility] [place] Comment on above: 6 month follow up Start: 11-07-2023 End: 02-06-2024 25-hydroxyvitamin D3 [Mass/volume] in Serum or Plasma [facility] Work Phone: Comment on above: Expected: 11/07/2023, Expires: Start: 10-12-2023 Covid-19 Vaccine ( season) Covid-19 Vaccine ( season) [facility] Start: 10-12-2023 Influenza [facility] Start: 10-07-2023 End: 01-06-2024 CBC panel - Blood by Automated count CBC Lab Routine Essential hypertension Encounter for long-term current use of medication Expected: 10/07/2023 (Approximate), Expires: 01/06/2024 [facility] Comment on above: Expected: 10/07/2023 (Approximate), Expi res: 01/06/2024 Start: 10-07-2023 End: 01-06-2024 Comprehensive metabolic 2000 panel - Serum or Plasma COMP METABOLIC PANEL Lab Routine Essential hypertension Encounter for long-term current use of medication Expected: 10/07/2023 (Approximate), Expires: 01/06/2024 [facility] Work Phone: Comment on above: Expected: 10/07/2023 (Approximate), Expi res: 01/06/2024 Start: 10-07-2023 End: 01-06-2024 Lipid 1996 panel - Serum or Plasma LIPID PANEL BASIC Lab Routine Essential hypertension Encounter for long-term current use of medication Expected: 10/07/2023 (Approximate), Expires: 01/06/2024 [facility] Comment on above: Expected: 10/07/2023 (Approximate), Expi res: 01/06/2024 Start: 10-07-2023 End: 01-06-2024 Magnesium [Mass/volume] in Serum or Plasma MAGNESIUM BLD Lab Routine Encounter for long-term current use of medication Expected: 10/07/2023 (Approximate), Expires: 01/06/2024 [facility] Comment on above: Expected: 10/07/2023 (Approximate), Expi res: 01/06/2024 Start: 02-10-2023 Advance Directive Discussion Advance Directive Discussion [facility] Start: 01-15-2023 SHINGRIX VACCINE (1 of 2) SHINGRIX VACCINE (1 of 2) [facility] Comment on above: Postponed from 1990 (Declined at t his time) Start: 01-15-2023 Urine microalbumin profile [facility] Comment on above: Postponed from 06/22/1959 (Declined at t his time) Start: 10-11-2022 Covid-19 Vaccine ( season) Covid-19 Vaccine ( season) [facility] Start: 10-11-2022 Influenza vaccination [facility] Start: 04-13-2022 COVID-19 VACCINE (5 - Moderna series) COVID-19 VACCINE (5 - Moderna series) [facility] Start: 02-10-2022 ADVANCE DIRECTIVE DISCUSSION ADVANCE DIRECTIVE DISCUSSION [facility] Start: 01-17-2022 End: 03-19-2022 25-hydroxyvitamin D3 [Mass/volume] in Serum or Plasma VITAMIN D 25 HYDROXY Lab Routine Vitamin D deficiency Expected: 01/17/2022 (Approximate), Expires: 03/19/2022 [facility] Work Phone: Comment on above: Expected: 01/17/2022 (Approximate), Expi res: 03/19/2022 Start: 01-17-2022 End: 03-19-2022 CBC panel - Blood by Automated count CBC Lab Routine Essential hypertension Expected: 01/17/2022 (Approximate), Expires: 03/19/2022 [facility] Work Phone: Comment on above: Expected: 01/17/2022 (Approximate), Expi res: 03/19/2022 Start: 01-17-2022 End: 03-19-2022 Comprehensive metabolic 2000 panel - Serum or Plasma COMP METABOLIC PANEL Lab Routine Essential hypertension Expected: 01/17/2022 (Approximate), Expires: 03/19/2022 [facility] Work Phone: Comment on above: Expected: 01/17/2022 (Approximate), Expi res: 03/19/2022 Start: 01-17-2022 End: 03-19-2022 Lipid 1996 panel - Serum or Plasma LIPID PANEL BASIC Lab Routine Essential hypertension Mixed hyperlipidemia Expected: 01/17/2022 (Approximate), Expires: 03/19/2022 [facility] Work Phone: Comment on above: Expected: 01/17/2022 (Approximate), Expi res: 03/19/2022 Start: 10-11-2021 Influenza vaccination INFLUENZA (#1) [facility] Start: 10-06-2021 ANNUAL PCP TEAM CHRONIC DISEASE VISIT ANNUAL PCP TEAM CHRONIC DISEASE VISIT [facility] Start: 10-06-2021 SHINGRIX VACCINE (1 of 2) SHINGRIX VACCINE (1 of 2) [facility] Comment on above: Postponed from 1990 (Declined at t his time) Start: 10-06-2021 Urine microalbumin profile DTAP,TDAP,TD (1 - Tdap) [facility] Comment on above: Postponed from [birth year]/22/1959 (Declined at t his time) Start: 07-11-2021 End: 06-11-2022 CBC W Auto Differential panel - Blood CBC + DIFF Lab Routine Generalized anxiety disorder Recurrent major depressive disorder, in partial remission (HCC) Essential hypertension Expected: 07/11/2021 (Approximate), Expires: 06/11/[facility]22 [facility] Work Phone: Comment on above: Expected: 07/11/2021 (Approximate), Expi res: 06/11/2022 Start: 07-11-2021 End: 06-11-2022 Comprehensive metabolic 2000 panel - Serum or Plasma COMP METABOLIC PANEL Lab Routine Generalized anxiety disorder Recurrent major depressive disorder, in partial remission (HCC) Essential hypertension HYPERCHOLESTEROLEMIA Expected: 07/11/2021 (Approximate), Expires: 06/11/2022 [facility] Work Phone: Comment on above: Expected: 07/11/2021 (Approximate), Expi res: 06/11/2022 Start: 07-11-2021 End: 06-11-2022 LIPID PANEL BASIC LIPID PANEL BASIC Lab Routine HYPERCHOLESTEROLEMIA Expected: 07/11/2021 (Approximate), Expires: 06/11/2022 [facility] Work Phone: Comment on above: Expected: 07/11/2021 (Approximate), Expi res: 06/11/2022 Start: 04-18-2021 COVID-19 VACCINE (4 - Booster for Moderna series) COVID-19 VACCINE (4 - Booster for Moderna series) [facility] Start: 02-13-2021 COVID-19 VACCINE (4 - Booster for Moderna series) COVID-19 VACCINE (4 - Booster for Moderna series) [facility] Start: 02-10-2021 ADVANCE DIRECTIVE DISCUSSION ADVANCE DIRECTIVE DISCUSSION [facility] Start: 06-22-2015 RSV Vaccine (1 - 1-dose 75+ series) RSV Vaccine (1 - 1-dose 75+ series) [facility] Start: 2000 RSV Vaccine (1 - 1-dose 60+ series) RSV Vaccine (1 - 1-dose 60+ series) [facility] Start: 1990 SHINGRIX VACCINE (1 of 2) SHINGRIX VACCINE (1 of 2) [facility] Start: 06-22-1959 Urine microalbumin profile [facility] Start: 1958 BP CONTROLLED (<130/80) BP CONTROLLED (<130/80) [facility] inic Basic metabolic 2008 panel with ionized calcium - Serum or Plasma [facility] CBC W Auto Different ial panel - Blood [facility] Natriuretic peptide. B prohormone N-Terminal [Mass/volume] in Serum or Plasma [facility] Patient Education Depression: Ti ps to Help Yourself ED Chest Pain, Uncertain Cause [facility] Work Phone: Thyroid stimulating hormone measurement [facility] Immunizations Immunization Date Immunization Notes Care Provider [facility] 01-29-2024 Seasonal trivalent influenza vaccine, adjuvanted, preservative free Korina Billy RN Work Phone: [facility] 01-29-2024 influenza virus vacc ine, unspecified formulation Nelli Reyes B[employer]END[employer] Work Phone: [facility] 01-20-2023 influenza (aIIV4) vaccine, age 65+ yr, quadrivalent, PF (FLUAD QUAD) Nelli Reyes [employer]ENDERS.[employer] Work Phone: [facility] 01-20-2023 influenza, injectabl e, quadrivalent, contains preservative Karen Resendiz MD Work Phone: [facility] 01-20-2023 influenza virus vacc ine, unspecified formulation Karen Resedniz MD Work Phone: [facility] 12-14-2021 COVID-19 booster vaccine, age 12+ yr, bivalent (PFIZER-BIONTBleepBleeps) Kecia Cardenas APRN.[employer] Work Phone: [facility] Work Phone: 11-21-2021 influenza (aIIV4) vaccine, age 65+ yr, quadrivalent, PF (FLUAD QUAD) Nelli Reyes B[employer]ENDERS.[employer] Work Phone: [facility] 11-21-2021 influenza, injectabl e, quadrivalent, contains preservative Kecia Cardenas B[employer]ENDERS.[employer] Work Phone: [facility] Work Phone: 11-21-2021 influenza virus vacc ine, unspecified formulation Veronika Siddiqi [facility] 11-30-2020 influenza (aIIV4) vaccine, age 65+ yr, quadrivalent, PF (FLUAD QUAD) Nelli Reyes [employer]ENDERS.[employer] Work Phone: [facility] 11-30-2020 influenza, high dose seasonal, preservative-free Karen Resendiz MD Work Phone: [facility] Work Phone: 04-07-2020 Covid (Moderna) Dr. Karen kennedy MD Work Phone: [facility] 03-10-2020 Covid (Moderna) Dr. Karen kennedy MD Work Phone: [facility] 10-29-2019 influenza, injectabl e, quadrivalent, preservative free Nelli Reyes [employer]ENDERS.[employer] Work Phone: [facility] 10-29-2019 influenza, seasonal, injectable Karen Resendiz MD Work Phone: [facility] 10-29-2019 pneumococcal conjuga te vaccine, 13 valent Karen Resendiz MD Work Phone: [facility] 12-02-2018 influenza, high dose seasonal, preservative-free Karen Resendiz MD Work Phone: [facility] 11-26-2017 influenza, high dose seasonal, preservative-free Karen Resendiz MD Work Phone: [facility] 01-15-2017 influenza, seasonal, injectable, preservative free Karen Resendiz MD Work Phone: [facility] 12-14-2015 influenza, high dose seasonal, preservative-free Karen Resendiz MD Work Phone: [facility] 12-13-2014 pneumococcal conjuga te vaccine, 13 valent Karen Resendiz MD Work Phone: [facility] 11-12-2014 influenza, high dose seasonal, preservative-free Karen Resendiz MD Work Phone: [facility] 12-02-2013 influenza, seasonal, injectable Karen Resendiz MD Work Phone: [facility] 11-07-2010 influenza virus vacc ine, unspecified formulation Karen Resendiz MD Work Phone: [facility] 02-08-2009 novel influenza-H1N1 -09, preservative-free, injectable Nelli Reyes APRN.[employer] Work Phone: [facility] 11-29-2008 influenza virus vacc angelika, unspecified formulation Karen Resendiz MD Work Phone: [facility] Work Phone: 12-29-2007 influenza virus vacc ine, whole virus Karen Resendiz MD Work Phone: [facility] 12-23-2006 influenza virus vacc ine, unspecified formulation Karen Resendiz MD Work Phone: [facility] Work Phone: 12-17-2005 influenza virus vacc ine, unspecified formulation Karen Resendiz MD Work Phone: [facility] 12-17-2005 pneumococcal polysaccharide vaccine, 23 valent Karen Resendiz MD Work Phone: [facility] 12-11-2004 influenza virus vacc ine, unspecified formulation Karen Resendiz MD Work Phone: [facility] Work Phone: Payers Date Payer Category Payer Medicare [id number] 2024 Self-pay 2020 Medicare HUMANA MEDICARE HUMANA MEDICARE PPO [id number] 2020-Present [phone] [address] [place] [address] PPO [id number] 2020 Medicare HUMANA MEDICARE HUMANA MEDICARE PPO [id number] 2020-Present [phone] [place] [address] PPO [id number] 2020 Medicare (Managed Care) HUMANA MICHELLE [id number] 2013 Private Health Insurance [id number] 1940 Unknown [id number] 1940 Unknown [id number] Unknown [id number] .[id number] Unknown [id number] .[id number] Unknown [id number] .[id number] Unknown [id number] .2.462 Unknown [id number] .[id number] Unknown [id number] .2.462 Unknown [id number] .2.462 Unknown [id number] .2.462 Unknown [id number] .2.462 Unknown [id number] .2.462 Unknown [id number] .2.462 Unknown [id number] .2.462 Unknown [id number] .[id number] Unknown [id number] .[id number] Social History Date Type Detail Facility Start: 05-31-2011 End: 09-19-2024 Tobacco smoking status CAIS Never smoked tobacco [facility] Start: 04-11-2021 End: 09-08-2024 Alcohol intake Current non-drinker of alcohol (finding) [facility] Start: 1940 Sex Assigned At Not on file C [facility] Start: 07-08-2021 End: 07-18-2021 Exposure to SARS-CoV-2 (event) Not sure [facility] Start: 05-31-2011 Tobacco use and exposure Smokeless tobacco non-user [facility] Work Phone: Start: 09-26-2021 End: 07-22-2022 History of Social function [facility] Start: 09-26-2021 End: 07-22-2022 Tobacco use panel [facility] Start: 01-12-2012 Adult Depression Screening Assessment 0 [facility] How often to you hav e a drink containing alcohol? Never [facility] Start: 08-23-2013 Alcohol Alcohol [facility] Start: 08-23-2013 Lives Lives [facility] Start: 08-23-2013 Tobacco Use Tobacco Use [facility] Start: 1940 Sex Assigned At Female W [facility] Functional Status Date Assessment Result Facility 05-11-2024 Total score [AUDIT-C] 0 05/12/19 25 1:22 PM EDT Hermila Braxton LPN [facility] 01-26-2024 Functional Status Single level home [facility] 01-26-2024 Functional Status Enjoys reading and word searches (01/26/24) [facility] 01-26-2024 Functional Status [facility] 01-26-2024 Functional Status [facility] 01-26-2024 Functional Status Nurse Safety Digna lunsford q2hrs Performed 3pm-3am [facility] 01-26-2024 Functional Status [facility] 01-25-2024 Functional Status [facility] 01-25-2024 Functional Status [facility] 01-25-2024 Functional Status [facility] 01-25-2024 Functional Status Skin moisturiz er, Shampoo cap, Shampoo/Body wash (no rinse) [facility] 01-25-2024 Functional Status [facility] 01-20-2024 Functional Status Identified as high risk, Non-Slip footwear, Room check performed [facility] 01-20-2024 Functional Status [facility] 01-20-2024 Functional Status [facility] 01-20-2024 Functional Status [facility] 01-19-2024 Functional Status [facility] 01-19-2024 Functional Status Single level [facility] 01-19-2024 Functional Status NPO Status Maintained A [facility] 01-19-2024 Functional Status [facility] 01-19-2024 Functional Status Skin Care Prev entative Intervention(s) padded oxygen tubing [facility] 01-18-2024 Functional Status [address] Adan camargo 04-28-2018 Are you deaf, or do you have serious difficulty hearing No 04/28/2018 5:06 PM Karen Guerrero MD [facility] 04-28-2018 Are you blind, or do you have serious difficulty seeing, even when wearing glasses No 04/28/2018 5:06 PM Karen Guerrero MD No [facility] 04-28-2018 Do you have serious difficulty walking or climbing stairs No 04/28/2018 5:06 PM Karen Guerrero MD No [facility] 04-28-2018 Do you have difficul ty dressing or bathing No 04/28/2018 5:06 PM Karen Guerrero MD [facility] 04-28-2018 Because of a physica l, mental, or emotional condition, do you have difficulty doing errands alone such as visiting a physician's office or shopping No 04/28/2018 5:06 PM Karen Guerrero MD No [facility] Mental Status Date Assessment Result Facility 09-19-2024 Cognitive function Voice/Name [facility] Work Phone: 01-26-2024 [facility]-25[facility]24 [facility] Status [facility] 01-20-2024 Mental Status Oriented x [facility] 01-20-2024 [facility] Status [facility] 01-20-2024 Mental Status [facility] 04-28-2018 Because of a physica l, mental, or emotional condition, do you have serious difficulty concentrating, remembering, or making decisions No 04/28/2018 5:06 PM Karen Guerrero MD No [facility] Clinical Notes 06-19-2021 to 09-20-2024 Sabrina Roman MA - 09/20/2024 1:58 PM Pat Amor RN - 09/20/2024 1:45 PM EDTPatiNelli Stanton APRN.CNP - 09/08/2024 2:25 PM EDT Note Date & Type Note Facility 09-20-2024 Note HNO ID: [id number] Author: SABRINA ROMAN MA Service: ? Author Type: Combination Operator Type: Progress Notes Filed: 09/20/2024 14:10 Note Text: POPULATION HEALTH NAVIGATION OUTREACH Action/FYI CM Pool Message: Type: ACO We are forwarding this patient to Network Navigation to schedule a sooner PCP follow-up appointment within 7 days of recent 09/19/2024 [place] ER visit. ED Follow up [facility] 09/19/24 Chest Pain HM care gaps: Patient has a follow up scheduled for 11/19/24 and a wellness visit scheduled for 05/20/25. Wellness visit completed on 05/11/24. MyChart - Patient declined. Status updated. Outcome: 1st attempt. Spoke with patient. ED follow up scheduled for 09/24/24. Reason for Outreach Community Monitoring/Network Navigator Pools AND Phone Line: CM Pool Care Gaps due: Follow-up Appointment Patient Contacted: Spoke to patient/parent/or legal guardian Patient identified by name and : Yes Community Monitoring/Network Navigator Pools AND Phone Line actions taken: Patient scheduled / pended orders: ER Follow-up 09/24/2024 in [facility] with KAREN RESENDIZ - ED Follow up, [facility] 09/19/24, Chest Pain 11/19/2024 in [facility] with KAREN RESENDIZ - 6 month f/up 05/20/2025 in [facility] with KAREN RESENDIZ - medicare wellness Navigation Signature: Sabrina Roman MA September 20, 2024 1:58 PM [facility] 09-20-2024 History of Present illness Narrative POPULATION HEALTH NAVIGATION OUTREACH Action/FYI CM Pool Message: Type: ACO We are forwarding this patient to Network Navigation to schedule a sooner PCP follow-up appointment within 7 days of recent 09/19/2024 [place] [facility] visit. ED Follow up [facility] 09/19/24 Chest Pain HM care gaps: Patient has a follow up scheduled for 11/19/24 and a wellness visit scheduled for 4/10/26. Wellness visit completed on 05/11/24. MyChart - Patient declined. Status updated. Outcome: 1st attempt. Spoke with patient. ED follow up scheduled for 09/24/24. Reason for Outreach Community Monitoring/Network Navigator Pools & Phone Line: CM Pool Care Gaps due: Follow-up Appointment Patient Contacted: Spoke to patient/parent/or legal guardian Patient identified by name and : Yes Community Monitoring/Network Navigator Pools & Phone Line actions taken: Patient scheduled / pended orders: ER Follow-up 09/24/2024 in [facility] with KAREN RESENDIZ - ED Follow up, [facility] 09/19/24, Chest Pain 11/19/2024 in [facility] with KAREN RESENDIZ - 6 month f/up 05/20/2025 in [facility] with KAREN RESENDIZ - medicare wellness Navigation Signature: Sabrina Roman MA September 20, 2024 1:58 PM Summary: Chart review per payor request ACM LUCIAN RN Patient identified by name and date of . Reason for review or outreach: Chart Review [facility] Department Utilization REQUESTED ACTION/FYI: Please see ED Utilization summary below A follow-up appointment is noted to be scheduled on 11/19/2024. We are forwarding this patient to Network Navigation to schedule a sooner PCP follow-up appointment within 7 days of recent 09/19/2024 [place] [facility] visit. Thank you! ED DIAGNOSES/REASON(S) FOR ED USE: 09/19/2024 [place] ER visit for chest pain OTHER FINDINGS/SUMMARY: Patient is an 84-year-old female with past med history of hypertension fibromyalgia and coronary disease with stent placement in January 2024. She states that in June 2024 her . Since that time she is dealt with severe depression. She states that last night she felt a burning discomfort along the left side of her chest. She states there was no associatednausea vomiting diaphoresis or shortness of breath. She states that she has a hard time sleeping secondary to her grief/depression. She states that she took the medication prescribed by her family doctor to help with sleep but was unableto sleep and had concern that this abnormal chest discomfort could be cardiac because of her previous heart attack and therefore called EMS to be brought in for evaluation Patient Attributed To: ARGENTINA Payer: Pedro MONROY Action Taken: Referrals/Routed: Population Health Navigation: Appointment. Router to [facility] [[id number]] Contact made with patient: No, Chart review only. Signature: Pat Noble RN documented in this encounter [facility] 09-20-2024 Note HNO ID: [id number] Author: PAT NOBLE RN Service: ? Author Type: Registered Nurse Type: Progress Notes Filed: 09/20/2024 13:47 Note Text: Summary: Chart review per payor request ACM LUCIAN RN Patient identified by name and date of . Reason for review or outreach: Chart Review [facility] Department Utilization REQUESTED ACTION/FYI: Please see ED Utilization summary below A follow-up appointment is noted to be scheduled on 11/19/2024. We are forwarding this patient to Network Navigation to schedule a sooner PCP follow-up appointment within 7 days of recent 09/19/2024 [place] [facility] visit. Thank you! ED DIAGNOSES/REASON(S) FOR ED USE: 09/19/2024 [place] [facility] visit for chest pain OTHER FINDINGS/SUMMARY: Patient is an 84-year-old female with past med history of hypertension fibromyalgia and coronary disease with stent placement in January 2024. She states that in June 2024 her . Since that time she is dealt with severe depression. She states that last night she felt a burning discomfort along the left side of her chest. She states there was no associatednausea vomiting diaphoresis or shortness of breath. She states that she has a hard time sleeping secondary to her grief/depression. She states that she took the medication prescribed by her family doctor to help with sleep but was unableto sleep and had concern that this abnormal chest discomfort could be cardiac because of her previous heart attack and therefore called EMS to be brought in for evaluation Patient Attributed To: TALIBIsela Payer: Pedro MONROY Action Taken: Referrals/Routed: Population Health Navigation: Appointment. Router to [facility] [[id number]] Contact made with patient: No, Chart review only. Signature: Pat Noble RN [facility] 09-20-2024 Note Patient Outreach ([facility]) KALINA RUDD ([id number]) 1940 F [facility] Date Time Provider Department 09/20/24 PAT NOBLE [facility] During your visit today, we recorded the following information about you: Pat Noble RN 09/20/2024 1:47 PM Signed [facility] LUCIAN RN Patient identified by name and date of . Reason for review or outreach: Chart Review [facility] Emergency Department Utilization REQUESTED ACTION/FYI: Please see ED Utilization summary below A follow-up appointment is noted to be scheduled on 11/19/2024. We are forwarding this patient to Network Navigation to schedule a sooner PCP follow-up appointment within 7 days of recent 09/19/2024 [place] [facility] visit. Thank you! ED DIAGNOSES/REASON(S) FOR ED USE: 09/19/2024 [place] ER visit for chest pain OTHER FINDINGS/SUMMARY: Patient is an 84-year-old female with past med history of hypertension fibromyalgia and coronary disease with stent placement in January 2024. She states that in June 2024 her . Since that time she is dealt with severe depression. She states that last night she felt a burning discomfort along the left side of her chest. She states there was no associatednausea vomiting diaphoresis or shortness of breath. She states that she has a hard time sleeping secondary to her grief/depression. She states that she took the medication prescribed by her family doctor to help with sleep but was unableto sleep and had concern that this abnormal chest discomfort could be cardiac because of her previous heart attack and therefore called EMS to be brought in for evaluation Patient Attributed To: QAE Payer: Pedro MONROY Action Taken: Referrals/Routed: Population Health Navigation: Appointment. Router to [facility] [[id number]] Contact made with patient: No, Chart review only. Signature: TOM Alvares Lisa L, MA 09/20/2024 2:10 PM Signed POPULATION HEALTH NAVIGATION OUTREACH Action/FYI CM Pool Message: Type: ACO We are forwarding this patient to Network Navigation to schedule a sooner PCP follow-up appointment within 7 days of recent 09/19/2024 [place] [facility] visit. ED Follow up [facility] 09/19/24 Chest Pain HM care gaps: Patient has a follow up scheduled for 11/19/24 and a wellness visit scheduled for 05/20/25. Wellness visit completed on 05/11/24. MyChart - Patient declined. Status updated. Outcome: 1st attempt. Spoke with patient. ED follow up scheduled for 09/24/24. Reason for Outreach Community Monitoring/Network Navigator Pools AND Phone Line: CM Pool Care Gaps due: Follow-up Appointment Patient Contacted: Spoke to patient/parent/or legal guardian Patient identified by name and : Yes Community Monitoring/Network Navigator Pools AND Phone Line actions taken: Patient scheduled / pended orders: ER Follow-up 09/24/2024 in [facility] with KAREN RESENDIZ - ED Follow up, [facility] 09/19/24, Chest Pain 11/19/2024 in [facility] with KAREN RESENDIZ - 6 month f/up 05/20/2025 in [facility] with KAREN RESENDIZ - medicare wellness Navigation Signature: Sabrina Roman MA September 20, 2024 1:58 PM Allergies As of Date: 09/20/2024 Noted Allergy Reaction AMITRIPTYLINE 10/01/2012 14 - Other: See Comments Comments: Could not urinate CODEINE 10/16/2004 Comments: chest pain SULFA (SULFONAMIDE ANTIBIOTICS) 03/31/2015 4 - Hives 7 - Swelling 9 - Itching TRAZODONE 10/16/2004 Comments: vivid dreams Date Reviewed: 09/08/2024 Reviewed by: Nelli Reyes APRN.[employer] - Fully Assessed Reason for Visit: ACM LUCIAN RN [[id number]] Cmt: Chart review per payor request Prescriptions as of 09/20/2024 - mirtazapine (REMERON) 15 mg tablet Take 1 tablet by mouth daily at bedtime. - albuterol HFA (PROVENTIL HFA, VENTOLIN HFA) 90 mcg/actuation inhaler Inhale 2 puffs as instructed every 4 hours as needed for wheezing/shortness of breath. - rosuvastatin (CRESTOR) 20 mg tablet Take 1 tablet by mouth daily at bedtime. - clopidogrel (PLAVIX) 75 mg tablet Take 1 tablet by mouth once daily. - isosorbide mononitrate ER (IMDUR) 30 mg 24 hr tablet Take 1 tablet by mouth once daily. Before a meal - DULoxetine (CYMBALTA) 60 mg capsule Take 1 capsule by mouth once daily. - amLODIPine (NORVASC) 10 mg tablet Take 1 tablet by mouth once daily. [facility]. - gabapentin (NEURONTIN) 300 mg capsule Take 1 capsule by mouth three times a day. - omeprazole (PRILOSEC) 40 mg capsule Take 1 capsule by mouth once daily. - aspirin, enteric coated (ASPIRIN, ENTERIC COATED) 81 mg EC tablet Take 1 tablet by mouth every afternoon. - losartan (COZAAR) 50 mg tablet Take 1 tablet by mouth once daily. - metoprolol succinate ER (TOPROL XL) 50 mg 24 hr tablet Take 1 tablet by mouth once daily. - crisaborole 2 % Apply to affected area two times a day. Apply a t (more content not included)... [facility] 09-19-2024 Discharge summary [facility] 09-19-2024 Radiology Diagnostic study note [facility] Imaging Services [address] [place] [address] Chest 1 View (Portable) MR#: [id number] Acct: [id number] Name: KALINA RUDD Rep #: [id number] 11 : 1940 F 84 From: Karma Rocha MD PCP: Dr. Karen Resendiz MD Status: CT E ER Study:Chest 1 View (Portable) Date of Exam: 09/19/24 Exam# [id number] Ordering Dr: Sue Nick DO PROCEDURE: CHEST 1 VIEW (PORTABLE) 09/19/2024 REASON FOR EXAM: CHEST PAIN TECHNIQUE: Frontal view of the chest. COMPARISON: 02/03/2024 FINDINGS: Scoliosis. Upper limits of normal heart size, possible LVH. Status post coronary artery stenting. Elevated right hemidiaphragm. No consolidation, effusion, or pneumothorax. RAD/Chest 1 View (Portable) IMPRESSION: No acute chest findings Reading Location: [place] [address] CC: Dr. Karen Resendiz MD; Chetan Nick DO ~ Payroll Professional: Signed [facility] 09-08-2024 Instructions Nelli Reyes APRN.CNP - 09/08/2024 2:42 PM EDT Start drinking 1 protein shake (Boost) a day. Start trying to drink 4 bottles of water per day. Start taking Remeron (mirtazapine) every day around bedtime. Call [facility] and ask about counseling and their [facility] documented in this encounter [facility] 09-08-2024 Note HNO ID: [id number] Author: NELLI REYES APRN.CNP Service: ? Author Type: Nurse Practitioner Type: Progress Notes Filed: 09/08/2024 15:36 Note Text: SUBJECTIVE Kalina Rudd is a 84 year old female here today for a check up on her medical problems. Chief Complaint Patient presents with: Recheck: Follow up, review labs. depression HPI Kalina Rudd is a 84-year-old female, with a history of MD and recent bereavement, presenting with fatigue, weight [...] her diet. Kalina has a history of MD in January, for which she had three stents placed. She reports not feeling well since the MD and has an upcoming echocardiogram scheduled for [...] a half later. She reports that her chin strap cutter noted elevated thyroid levels and suggested that treatment might improve her energy levels. She also reports that her chin strap cutter noted signs of depression, anxiety, and dehydration. Kalina reports a history of anxiety and describes herself as a worrier. She has not sought counseling but mentions that her chin strap cutter recommended it. She has a son in [place] with whom she had a recent disagreement, leading to feelings of isolation. She has another son and a grandson locally, with whom she maintains regular contact. She expresses feelings of sadness and depression, stating, I'm so depressed, it's awful. Recording using PurePredictive software for draft documentation of the visit was discussed with the patient/authorized community health representative; all questions welcomed and answered. Patient/authorized community health representative agreed to proceed Her medications were [...] times a week. Miscellaneous Medical Supply [facility] probiotics--Yeast and Vaginal PH support probiotic. Probiotic [...] ACTIVE PROBLEM LIST Coronary Artery Disease Involving [place] Coronary Artery of [place] Heart With Angina Pectoris - 03/12/2024 S/P Angioplasty With Stent - 03/12/[address] Elevation Myocardial Infarction (Stemi) - 03/12/2024 Recurrent Major Depressive Disorder, in Part (more content not included)... [facility] 09-08-2024 History of Present illness Narrative SUBJECTIVE Kalina Rudd is a 84 year old female here today for a check up on her medical problems. Chief Complaint Patient presents with: Recheck: Follow up, review labs. depression HPI Kalina Rudd is a 84-year-old female, with a history of MD and recent bereavement, presenting with fatigue, weight [...] her diet. Kalina has a history of MD in January, for which she had three stents placed. She reports not feeling well since the MD and has an upcoming echocardiogram scheduled for [...] a half later. She reports that her chin strap cutter noted elevated thyroid levels and suggested that treatment might improve her energy levels. She also reports that her chin strap cutter noted signs of depression, anxiety, and dehydration. Kalina reports a history of anxiety and describes herself as a worrier. She has not sought counseling but mentions that her chin strap cutter recommended it. She has a son in [place] with whom she had a recent disagreement, leading to feelings of isolation. She has another son and a grandson locally, with whom she maintains regular contact. She expresses feelings of sadness and depression, stating, I'm so depressed, it's awful. Recording using PurePredictive software for draft documentation of the visit was discussed with the patient/authorized community health representative; all questions welcomed and answered. Patient/authorized community health representative agreed to proceed Her medications were [...] three times a week. [facility] probiotics--Yeast and Vaginal PH support probiotic. Probiotic [...] ACTIVE PROBLEM LIST Coronary Artery Disease Involving [place] Coronary Artery of [place] Heart With Angina Pectoris - 03/12/2024 S/P [...] - Provided information for grief counseling through [facility] in [facility]. - Follow-up scheduled for November 19 at [...] Nelli Reyes APRN-DARREN documented in this encounter [facility] 09-07-2024 Evaluation note Diagnosis Onset Date Resolution Aortic regurgitation acute September 07, 2024 8:06am JAMIL (dyspnea on exertion) acute September 07, 2024 8:06am Fatigue acute September 07 8:06am History of coronary artery stent placement acute August 8:06am HTN (hypertension) chronic August 112024 8:06am [facility] Work Phone: 1(510) 691-209405-21-2025 Instructions* Patient Instructions* Karen Resendiz MD - [...] not relieve your cough, you may use gpxl-dtq-ehphzmk options such as Robitussin, Mucinex, quercetin (HBP), or Delsym. - Only fill and start doxycycline 100 mg twice daily for 10 days if your cough and wheezing do not improve with the inhaler and cough treatments. - Continue routine follow-up with your chin strap cutter in October as planned. - Contact the office if your symptoms worsen or if you have any questions. [facility] NoteHNO ID: [id number] Author: KAREN RESENDIZ MD Service: ? Author Type: Physician Type: Progress Notes Filed: 07/19/2024 01:01 Note Text: This note was created using Conekta. Subjective Kalina Rudd is a 84 year [...] is currently under the care of a chin strap cutter and reports stable cardiac status, with her [...] Osteoporosis, unspecified STEMI (ST elevation myocardial infarction) ([facility]) 01/19/2024 Current Outpatient Medications Medication Sig albuterol [...] times a week. Miscellaneous Medical Supply [facility] probiotics--Yeast and Vaginal PH support probiotic. Probiotic [...] to administer 1 puff, (more content not included)...[facility]05-21-2025 History of Present illness Narrative* Karen Resendiz MD - 06/30/2024 5:33 PM EDT This note was created using LeanMarketter. Subjective Kalina Rudd is a 84 year [...] is currently under the care of a chin strap cutter and reports stable cardiac status, with her [...] Osteoporosis, unspecified STEMI (ST elevation myocardial infarction) ([facility]) 01/19/2024 Current Outpatient Medications Medication Sig albuterol [...] three times a week. Miscellaneous Medical [facility] probiotics--Yeast and Vaginal PH support probiotic. Probiotic [...] Tessalon Perles for cough management. - Discussed ltyf-gxx-wsgjujh options such as Robitussin, quercetin, HBP, Mucinex, [...] as needed. Karen Resendiz MD Recording using PurePredictive software for draft documentation of the visit was discussed with the patient/authorized community health representative; all questions welcomed and answered. Patient/authorized community health representative agreed to proceed documented in this encounterBl[facility] NoteHNO ID: [id number] Author: KAREN RESENDIZ MD Service: ? Author Type: Physician Type: Progress Notes Filed: 05/11/2024 14:34 Note Text: This note was created using Conekta. Subjective Kalina Rudd is a 83 year [...] content normal. Judgment: Judgment normal. [facility] History of Present illness Narrative* Karen Resendiz MD - 05/11/2024 2:19 PM EDT This note was created using Conekta. Subjective Kalina Rudd is a 83 year [...] patient consented to the use of ambient [employer] software for draft documentation of the visit consistent with [facility] s Notice of Privacy Practices. Kalina is a 83-year-old female with a history of MD, HTN, and eczema, presenting for a Medicare Annual Wellness Visit. Kalina reports right hip pain that occurs when standing up and walking, but is alleviated by straightening the leg before walking. The pain is located in the anterior groin and buttocks. 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 She finds [...] amlodipine and has not yet contacted her chin strap cutter about reducing the dose. She also reports [...] has not seen her dentist since her MD, but plans to schedule an appointment. She [...] fitted stockings. - Advised patient to contact chin strap cutter to discuss reducing amlodipine dosage from 10 [...] stent (Z95.820) # Coronary artery disease involving [place] coronary artery of [place] heart without angina pectoris (I25.10) - No recent chest pain reported. - Continue current medications including clopidogrel, isosorbide, and metoprolol. - Refills for clopidogrel and isosorbide sent to [facility] pharmacy. # Fibromyalgia (M79.7) - Managed with gabapentin; dosage adjusted to 300 mg TID. - Monitor for effectiveness in pain management. # Encounter for immunization (Z23) - Reviewed immunization status; no updates needed at this time. # Encounter for long-term current use of medication (Z79.899) - Reviewed and refilled medications: rosuvastatin, clopidogrel, isosorbide, duloxetine, metoprolol,gabapentin, omeprazole. - Prescriptions sent to [facility] pharmacy. # Pain in right hip (M25.551) - Pain localized to the right hip, likely muscular in origin. - Advised use of massage and gentle stretching exercises. - Monitor for any changes or worsening symptoms. 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 - Prescription refilled and sent to [facility] pharmacy. # Dermatitis, unspecified (L30.9) - Advised application of lotion followed by tallow to affected areas. - Monitor for improvement in skin condition. Karen Resendiz MD documented in this encounterBl[facility] Instructions* Patient Instructions* Karen Resendiz MD - 05/11/2024 1:44 PM EDT - Refill your medications at [facility] to ensure you have enough supply before they run out. - Take Clopidogrel (Plavix) 75 mg once daily as prescribed. - Take Rosuvastatin as prescribed. - Take Isosorbide as prescribed. - Take Duloxetine as prescribed. - Take Amlodipine 10 mg as prescribed; consider discussing with your chin strap cutter about reducing the dose to 5 mg [...] swelling. - Schedule an appointment with your chin strap cutter to discuss adjusting your blood pressure medication. - Schedule an appointment with your dentist and inform them that you are taking Clopidogrel (Plavix). - Schedule an appointment with your talent acquisition lead to discuss your living will and healthcare [...] review all the medicines you take, even uyzd-hvw-nggdpuz medicines. As you get older, the way [...] have certain medical conditions. documented in this encounterBl[facility]25 NoteHNO ID: [id number] Author: KAREN RESENDIZ MD Service: ? Author [...] The patient consented to the use of PurePredictive software for draft documentation of the visit consistent with [facility]?s Notice of Privacy Practices. Kalina is a 83-year-old female with a history of MD, HTN, and eczema, presenting for a Medicare Annual Wellness Visit. Kalina reports right hip pain that occurs when standing up and walking, but is alleviated by straightening the leg before walking. The pain is located in the anterior groin and buttocks. 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 She finds [...] amlodipine and has not yet contacted her chin strap cutter about reducing the dose. She also reports [...] has not seen her dentist since her MD, but plans to schedule an appointment. She [...] normal. Nose: Nose normal (more content not included)...[facility] 03-16-2024 Telephone encounter Note* Telephone Encounter - Karen Resendiz MD - 03/16/2024 2:30 AM EST The following approved medication requests have been transmitted electronically. Requested Prescriptions Pending Prescriptions Disp Refills omeprazole (PRILOSEC) 40 mg capsule 90 capsule 3 Sig: Take 1 capsule by mouth once daily. Karen Resendiz MD [facility]02-04-2025 Miscellaneous Notes* Telephone Encounter - Karen [...] 15, 2024 3:52 PM documented in this encounterBlanchard Valley [facility] Telephone encounter Note * Telephone Encounter [...] Kym Cuellar March 15, 2024 3:52 PM [facility] Work Phone: 1(760) 173-910101-31-2025 History of Present illness Narrative* Ariana Cardoza [...] PATIENT PRESENTS WITH AN IMPLANTABLE OR ATTACHED SOCIAL MEDIA MARKETER: No RADIOLOGY DEPARTMENT: General X-ray: Exam(s) Completed: Chest X-Ray PERIPHERAL IV DATA: Not applicable SIGNED BY: SIERRA Flores) March 12, 2024 12:24 PM documented in this encounterBlanchard Valley Health [facility]01-31-2025 NoteHNO ID: [id number] Author: ARIANA CARDOZA RT(R) Service: Radiology Author [...] PATIENT PRESENTS WITH AN IMPLANTABLE OR ATTACHED SOCIAL MEDIA MARKETER: No RADIOLOGY DEPARTMENT: General X-ray: Exam(s) Completed: Chest X-Ray PERIPHERAL IV DATA: Not applicable SIGNED BY: Ariana Cardoza RT(R) March 12, 2024 12:24 [facility]01-31-2025 Instructions* Patient Instructions* Alexei Skelton MD - 03/12/2024 12:21 PM EST Use Monistat first for yeast infection. Only if not better, take Diflucan tablet once. There is interaction with your Plavix. documented in this encounterBlanchard Valley Health System [facility]01-[facility]25 NoteHNO ID: [id number] Author: ALEXEI SKELTON MD Service: ? Author Type: Physician Type: Progress Notes Filed: 03/12/2024 13:48 Note Text: This note was created using Conekta. 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 Miscellaneous Medical Supply [facility] probiotics--Yeast and Vaginal PH support probiotic. Probiotic [...] leg: No edema. Lymphadenopathy: (more content not included)...[facility]01-31-2025 History of Present illness Narrative* Alexei Skelton MD - 03/12/2024 11:55 AM EST This note was created using LeanMarketter. 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 Miscellaneous Medical Supply [facility] probiotics--Yeast and Vaginal PH support probiotic. Probiotic blend. Takes 1 by mouth at bedtime glycerin-min oil-polycarbophil (REPLENS) gel Uses Replens cream 3 times weekly COMPOUNDED PRESCRIPTION Massage therapy Dx: Fibromyalgia, Arthritis No current facility-administered medications for this visit. Objective BP 128/60 Pulse 81 Temp 37.8 C (100 F) (Temporal) Resp 20 Wt 63.3 kg (139 lb 8.8 oz) QmW984% BMI 25.94 kg/m Physical Exam Constitutional: General: [...] - Stable. 5. Coronary artery disease involving [place] coronary artery of [place] heart with angina pectoris (HCC) - ICD9: 414.01, 413.9, ICD10: I25.119 - Per Dr. Good. 6. S/P angioplasty with stent - ICD9: V45.89, ICD10: Z95.820 - Per Dr. Good. Alexei Skelton MD documented in this encounterBlanchard Valley [facility] Telephone encounter Note * Telephone Encounter - Everardo Mensah RN - 03/12/2024 9:21 AM EST Pt reports dry cough for 2 weeks, only at night. Improved since 2 weeks ago, but just doesn't feel good and ribs hurt when taking a deep breath. Had mild sharp CP last night only. Lasted few seconds and it has not returned. With hx of MD with 3 stents in Jan 2024, used [...] 7. CARDIAC RISK FACTORS: Reports she had MD (at [facility]) in Jan, 2024. [facility] sent her to [facility] received 3 stents. Taking a blood [...] 11. : Post menopause. Protocols used: Chest Hnyy-AEXMS-GZ [facility]01-31-2025 Miscellaneous Notes* Telephone Encounter - Everardo Mensah RN - 03/12/2024 9:21 AM EST Pt reports dry cough for 2 weeks, only at night. Improved since 2 weeks ago, but just doesn't feel good and ribs hurt when taking a deep breath. Had mild sharp CP last night only. Lasted few seconds and it has not returned. With hx of MD with 3 stents in Jan 2024, used [...] 7. CARDIAC RISK FACTORS: Reports she had MD (at [facility]) in Jan, 2024. [facility] sent her to [facility] received 3 stents. Taking a blood [...] 11. : Post menopause. Protocols used: Chest Jork-JCHBP-WC documented in this encounterBlanchard Valley Health System [facility]12[facility]24 NoteHNO ID: [id number] Author: KORINA BILLY RN Service: ? Author Type: Registered Nurse Type: Progress Notes Filed: 02/02/2024 14:18 Note Text: Transitional Care Management (TCM) Follow-Up Note PCP Update / Actionable Items N/A - No specialty updates needed Patient Source: Brt-ar-Qjfabsg (OON) Discharge Outreach Summary: Spoke with patient for follow up , doing well at home. She is monitoring her BP but did not check it today yet , she does have them recorded but patient currently resting. Has some concerns regarding her recent care at [facility] which is not covered by her insurance. She does have some contacts to reach out to regarding more information on patient assistance Patient discharged from [place] Discharge date: 01/19/2024 Admitted for: STEMI Readmission [...] Korina Billy RN February 02, 2024 2:17 [facility]12-23-2024 History of Present illness Narrative* Korina Billy RN - 02/02/2024 2:10 PM EST Transitional Care Management (TCM) Follow-Up Note PCP Update / Actionable Items N/A - No specialty updates needed Patient Source: Dja-hp-Mnubxgk (OON) Discharge Outreach Summary: Spoke with patient for follow up , doing well at home. She is monitoring her BP but did not check it today yet , she does have them recorded but patient currently resting. Has some concerns regarding her recent care at [facility] which is not covered by her insurance. She does have some contacts to reach out to regarding more information on patient assistance Patient discharged from [place] Discharge date: 01/19/2024 Admitted for: STEMI Readmission [...] days Care Management partners utilized: N/A Korina iBlly RN February 02, 2024 2:17 PM documented in this encounterBlanchard Valley Health System [facility]12-[facility] NotePatient Outreach ([facility]) KALINA RUDD ([id number]) 1940 F [facility] Date Time Provider Department 02/02/24 KORINA BILLY During your visit today, we recorded the following information about you: Korina Billy RN 02/02/2024 2:18 PM Signed Transitional Care Management (TCM) Follow-Up Note PCP Update / Actionable Items N/A - No specialty updates needed Patient Source: Yrm-ip-Fznwuux (OON) Discharge Outreach Summary: Spoke with patient for follow up , doing well at home. She is monitoring her BP but did not check it today yet , she does have them recorded but patient currently resting. Has some concerns regarding her recent care at [facility] which is not covered by her insurance. She does have some contacts to reach out to regarding more information on patient assistance Patient discharged from [place] Discharge date: 01/19/2024 Admitted for: STEMI Readmission [...] ointment Actually gets compounded RX 0.07% through [facility] from [employer] to use twice weekly - Miscellaneous Medical Supply [facility] probiotics--Yeast and Vaginal PH support probiotic. Probiotic [...] Fibromyalgia [M79.7] [place] (more content not included)...[facility]12-17-2024 Instructions* Patient Instructions* Karen Resendiz MD [...] office to schedule an appointment with a chin strap cutter. - Follow up with cardiology on February 17. documented in this encounterBlanchard Valley Health System [facility]12[facility]24 NoteHNO ID: [id number] Author: KAREN RESENDIZ MD Service: ? Author [...] visit. HPI Patient presents with: Hospital F/U: [place] x 2 hospital visits SUBJECTIVE: Kalina Rudd [...] and stent placements, she was transferred to [facility] for further evaluation. Upon arrival to the [...] 83-year-old female with a history of recent MD and stent placement, presenting for follow-up after two recent hospital admissions. Kalina reports experiencing back and chest pain following two recent hospital admissions for an MD, during which three stents were placed. She [...] Kalina has a follow-up appointment with her chin strap cutter on February 17, but she plans to switch to a local chin strap cutter due to insurance coverage issues. She expresses [...] mouth once daily. riley (more content not included)...[facility]12-17-2024 History of Present illness Narrative* Karen [...] visit. HPI Patient presents with: Hospital F/U: [facility] x 2 hospital visits SUBJECTIVE: Kalina Rudd [...] and stent placements, she was transferred to [facility] for further evaluation. Upon arrival to the [...] 83-year-old female with a history of recent MD and stent placement, presenting for follow-up after two recent hospital admissions. Kalina reports experiencing back and chest pain following two recent hospital admissions for an MD, during which three stents were placed. She [...] Kalina has a follow-up appointment with her chin strap cutter on February 17, but she plans to switch to a local chin strap cutter due to insurance coverage issues. She expresses [...] ointment Actually gets compounded RX 0.07% through [facility] from [employer] to use twice weekly [facility] probiotics--Yeast and Vaginal PH support probiotic. Probiotic [...] and Plan # Coronary artery disease involving egegik coronary artery of egegik heart without angina pectoris (I25.10) # S/P [...] suppression. Karen Resendiz MD [facility] Discharge summary Date of Service 01/26/2024 [...] Patient follow-up primary care physician and primary chin strap cutter outpatient. Allergies sulfa drugs Pt unsure Consults [...] as needed as needed for dry eyes. Milligram by mouth once a day. rosuvastatin (rosuvastatin 20 mg oral tablet)1 tab(s) by mouth daily at bedtime for 90 Days. Refills: 4. Follow Up Follow Up with KAREN RESENDIZ MD When:Within 1-2 days Where:[address] [place] [address]- Follow Up with RODRIGO HAYES MD When:In 1 week Where:[address] [facility] [address] [facility] [place] [address] [phone] Follow Up Appointments No qualifying data available. [...] KENNY KWAN MD on 01/26/2024 12:16 PM [id number] History and physical note Date of Service [...] and stent placements, she was transferred to [facility] for further evaluation. Upon arrival to the [...] and stent placements, she was transferred to [facility] for further evaluation. Upon arrival to the [...] HESHAM ORTIZ MD on 01/26/2024 08:49 AM [facility] [id number] NoteHNO ID: [id number] Author: HERMILA GONSALVES RN Service: ? Author [...] Occurrences Date Last Occurrence Hospital Admission 01-17-24 [facility] Observation - N/A ED 01-24-24 SNF / Acute Rehab / LTAC - N/A ED DIAGNOSES/REASON(S) FOR ED USE: IMPRESSION: 1. COPD/emphysema with mild groundglass edema either due to developing volume overload or pneumonitis 2. No demonstrated pulmonary embolism or arterial dissection. At this point time we will discuss the case with [facility] cardiology for further evaluation management. I called and discussed case with Dr. Gerson Ly who states that he would recommend transferring the patient back to [facility] for further evaluation management given her recent [...] Resendiz MD; Dr. Mejia Shah DO ~ Payroll Professional: Signed OTHER FINDINGS/SUMMARY: Patient Attributed To: ARGENTINA Payer: Pedro MONROY Action Taken: Referrals/Routed: none Contact made with patient: No, Chart review only. Signature: Hermila Gonsalves RN To: TALIBE Payer: Pedro MONROY Action Taken: Referrals/Routed: Contact made with patient: No, Chart review only. Signature: Herm[facility]alves [facility] History of Present illness Narrative* Hermila [...] Date Last Occurrence Hospital Admission 1 01-17-24 [facility] Observation - N/A ED 1 01-24-24 SNF / Acute Rehab / LTAC - N/A ED DIAGNOSES/REASON(S) FOR ED USE: IMPRESSION: 1. COPD/emphysema with mild groundglass edema either due to developing volume overload or pneumonitis 2. No demonstrated pulmonary embolism or arterial dissection. At this point time we will discuss the case with [facility]ology for further evaluation management. I called and discussed case with Dr. Gerson Ly who states that he would recommend transferring the patient back to [facility] for further evaluation management given her recent [...] Resendiz MD; Dr. Mejia Shah DO ~ Payroll Professional: Signed OTHER FINDINGS/SUMMARY: Patient Attributed To: ARGENTINA Payer: Pedro MONROY Action Taken: Referrals/Routed: none Contact made with patient: No, Chart review only. Signature: Hermila Gonsalves RN To: ARGENTINA Payer: Pedro MONROY Action Taken: Referrals/Routed: Contact made with patient: No, Chart review only. Signature: Hermila Gonsalves RN documented in this encounterBlanch[facility] Hospital Discharge instructions Patient Education 01/26/2024 11:19:26 Angina, Yzys-cy-Bfdf Angina Angina is very bad discomfort or [...] Follow these instructions at home: Medicines Take ngng-kee-pwjymzn and prescription medicines only as told by [...] 07/15/2008 Document Revised: 09/14/2018 Document Reviewed: 09/14/2018 [employer] Patient Education 2020 [employer]. Follow Up Care 01/24/2024 15:14:13 With:KAREN RESENDIZ MD Address: [address] [place] [address]- When:1-2 days With:RODRIGO HAYES MD Address: [address] [facility] [address] [facility] [place] [address]- [phone] When:Within 1 Week(s) [facility] 12-16-2024 Discharge summary Date of Service 01/26/2024 [...] Patient follow-up primary care physician and primary chin strap cutter outpatient. Allergies sulfa drugs Pt unsure Consults [...] as needed as needed for dry eyes. [id number] Milligram by mouth once a day. rosuvastatin (rosuvastatin 20 mg oral tablet)1 tab(s) by mouth daily at bedtime for 90 Days. Refills: 4. Follow Up Follow Up with KAREN RESENDIZ MD When:Within 1-2 days Where:[address] [place] [address]- Follow Up with RODRIGO HAYES MD When:In 1 week Where:[address] [facility] [address] [facility] [place] [address] [phone] Follow Up Appointments No qualifying data available. [...] KENNY KWAN MD on 01/26/2024 12:16 PM [facility] [id number] Note Discharge Instructions Thank you for allowing [facility] to assist you with your healthcare needs. The following is importantdischarge information regarding your hospital visit. Your Care Team KAREN RESENDIZ MD What to do next Scheduled Follow-Up Appointments Appointment Type When With Where Contact Information StatusCV Hospital Follow Up 02/18/2024 11:30 AM SAMANTHA CORBIN [facility] Confirmed Follow Up Appointments Follow Up with KAREN RESENDIZ MD When:Within 1-2 days Where:[address] [place] [address]- Follow Up with RODRIGO HAYES MD When:In 1 week Where:[address] [facility] [place] [address]- [phone] The Following Activity and Diet Have Been [...] Once a day Refills: 4 Pickup at [facility] New isosorbide mononitrate (isosorbide mononitrate 30 mg oral tablet, extended release) 1 tab(s) by mouth Once a day before a meal Refills: 4 Pickup at [facility] 074 Changed losartan (losartan 50 mg oral tablet) 1 tab(s) by mouth Once a day Pickup at [facility] Unchanged aspirin (aspirin 81 [...] at bedtime Duration: 90 Days Pharmacy Information [facility] 074: [address] [place], [place] [phone] Please take this list to your next [...] Follow these instructions at home: Medicines Take bccm-qdl-ayaeejg and prescription medicines only as told by [...] Document Reviewed: 09/14/2018 Elsevier Patient Education 2020 [employer] Additional Information VACCINATE! IT SAVES LIVES! Members of the community who have not yet received the COVID-19 vaccine and would like to receive it can visit one of [facility] vaccine clinics. There are many vaccine clinic locations within the [facility]. For locations and available times, please visit [email or web address].gov/. It is important to note that some COVID mobile vaccine clinics are held outdoors and may be canceled in rainy or stormy conditions. To learn more about pediatric vaccinations (ages 5-11), we invite you to visit the [employer],s webpage. [email or web address]://[email or web address]/[email or web address] [email or web address].htmlTo learn more about the COVID-19 vaccine, we invite you to visit the CDC website for a list of frequently asked questions.https://www.cdc.gov/coronavirus/2019-ncov/vaccines/faq.html [facility] Patient Portal Access Instructions: Stay connected with your healthcare team and access your personal medical information anytime with the [facility] Patient Portal. Please follow the directions below to create your [facility] account: 1.Access the email account you provided upon registration to the hospital/physician office.2.Look for an invitation email from [facility].3.Open the email and access the invitation link: AcceptInvitation to [facility].4.Fill in the required antony to create your account. To access your account, visit [employer]/JianshuOneChart. Click the blue button labeled Access Patient [...] who you will allowto register on the [facility] iDreamBooksChart Patient Portal for access to your information. You can also access the [facility] on the [facility] sammy. Simply click on Patient Portal and then log into your account. If you would like to receive a full copy of your medical records, please contact the [facility] Medical Records Department by calling [phone], Friday through Friday between 8 a.m. and [...] Call your local pharmacy or go to [email or web address] to find one close to you.3.Make use of household items: Use cat litter or old coffee grounds to dispose medications if other options arenot available. Mix your drugs with these household products, seal them in an airtight container andthrow it into the garbage. Call [facility]: [phone] to be sure your drugs can be [...] CHART COPY. Signatures Patient Education Materials Angina, Vhew-ax-Vpvs Medication Leaflets My discharge plan and instructions have been reviewed and explained to me and I,KALINA RUDD understand my current condition and have read and understand these discharge instructions. I have received a written copy of the plan/instructions. If I have questions, I am aware that I should contactmy doctor. 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 COPD/emphysema with mild groundglass edema either due to developing volume overload or pneumonitis 2. No demonstrated pulmonary embolism or arterial dissection. At this point time we will discuss the case with [facility]ology for further evaluation management. I called and discussed case with Dr. Gerson Ly who states that he would recommend transferring the patient back to [facility] for further evaluation management given her recent [...] Resendiz MD; Dr. Mejia Shah DO ~ Payroll Professional: Signed OTHER FINDINGS/SUMMARY: Patient Attributed To: QAE Payer: Pedro MONROY Action Taken: Referrals/Routed: none Contact made with patient: No, Chart review only. Signature: Hermila Gonsalves RN To: ARGENTINA Payer: Pedro MONROY Action Taken: Referrals/Routed: Contact made with patient: No, Chart review only. Signature: Hermila Gnosalves RN Allergies As of Date: 01/26/2024 Noted Allergy Reaction AMITRIPTYLINE 10/01/2012 14 - Other: See Comments Comments: Could not urinate CODEINE 10/16/2004 Comments: chest pain SULFA (SULFONAMIDE ANTIBIOTICS) 03/31/2015 4 - Hives 7 - Swelling 9 - Itching TRAZODONE 10/16/2004 Comments: vivid dreams Date Reviewed: 01/17/2024 Reviewed by: Cristina Tellez RN - Fully Assessed Reason for Visit: ACM LUCIAN RN [[id number]] Cmt: No action needed. Prescriptions as of [...] ointment Actually gets compounded RX 0.07% through [facility] from [employer] to use twice weekly - [facility] probiotics--Yeast and Vaginal PH support probiotic. Probiotic [...] partial*09/08/2017 Encounter Status:Closed by HERMILA GONSALVES on 01/26/24[facility] 01-25-2024 Evaluation + Plan noteExtracted from: [...] and stent placements, she was transferred to [facility] for further evaluation. Upon arrival to the [...] Date:02/18/2024 11:30:00 AM Scheduled Provider:SAMANTHA JOYNER Location:[facility] Appointment Type:CV OV Hospital Follow Up [facility] 12-15-2024 NoteSINUS RHYTHM LVH WITH SECONDARY REPOLARIZATION ABNORMALITY Electronic Signature: KAREN JULIEN MD 01/26/2024 08:36:53[facility] 12-15-2024 History and physical note Date of [...] and stent placements, she was transferred to [facility] for further evaluation. Upon arrival to the [...] and stent placements, she was transferred to [facility] for further evaluation. Upon arrival to the [...] HESHAM ORTIZ MD on 01/26/2024 08:49 AM [facility] [id number] NoteSINUS RHYTHM VENTRICULAR PREMATURE COMPLEX LVH WITH SECONDARY REPOLARIZATION ABNORMALITY INFERIOR INFARCT, OLD Electronic Signature: GERSON LY MD 01/25/2024 20:41:59[facility] 12-13-2024 Telephone encounter Note* Telephone Encounter - [...] patient that she has a prescription at [facility] if not able to locate. Reviewed care advice and red flag symptoms to go to ER with. Patient verbalizes understanding and will look for amlodipine. nurse is there now to assist patient. Patient to call back with any further questions. Odessa Ackerman RN [facility]12-13-2024 Miscellaneous Notes* Telephone Encounter - Odessa [...] patient that she has a prescription at [facility] if not able to locate. Reviewed care advice and red flag symptoms to go to ER with. Patient verbalizes understanding and will look for amlodipine. nurse is there now to assist patient. Patient to call back with any further questions. Odessa Ackerman RN documented in this encounterBlanchard Valley Health [facility]12-11-2024 NoteHNO ID: [id number] Author: KORINA BILLY RN Service: ? Author Type: Registered Nurse Type: Progress Notes Filed: 01/21/2024 11:31 Note Text: Transition Care Management (TCM) Initial Outreach PCP Update / Actionable Items N/A - No specialty updates needed Patient Source: Zmi-ny-Qesubwm (OON) Discharge Outreach Summary: spoke with patient doing well at home, denies any worsening chest pain. Recovering from surgery. Has not checked BP yet today but will be taking her medications soon and will check this awhile after taking. Assisted with PCP follow up appointment for 01/26 Patient discharged from [facility] Discharge date: 01/19/2024 Admitted for: CP, STEMI Readmission Risk: n/a Value-Based Contract: Pedro MONROY Contact: Contact made with patient: Yes Hi, my name is Korina Billy RN and I am calling from the [facility] on behalf of your Primary Care [...] to speak with a social work steam oven operator to help give you support for [...] I will send your request to a home care scheduler who will contact and assist you with [...] a previously scheduled follow-up appointment, route to [facility] for updated appointment type or to schedule [...] Korina Billy RN January 21, 2024 11:29 [facility]12-11-2024 History of Present illness Narrative* Korina Billy RN - 01/21/2024 11:23 AM EST Transition Care Management (TCM) Initial Outreach PCP Update / Actionable Items N/A - No specialty updates needed Patient Source: Dcu-md-Ehqnunu (OON) Discharge Outreach Summary: spoke with patient doing well at home, denies any worsening chest pain. Recovering from surgery. Has not checked BP yet today but will be taking her medications soon and will check this awhile after taking. Assisted with PCP follow up appointment for 01/26 Patient discharged from [facility] Discharge date: 01/19/2024 Admitted for: CP, STEMI Readmission Risk: n/a Value-Based Contract: Pedro MONROY Contact: Contact made with patient: Yes Hi, my name is Korina Billy RN and I am calling from the [facility] on behalf of your Primary Care [...] to speak with a social work steam oven operator to help give you support for [...] I will send your request to a home care scheduler who will contact and assist you with [...] a previously scheduled follow-up appointment, route to [facility] [place] for updated appointment type or to schedule [...] 21, 2024 11:29 AM documented in this encounterBlanchard Valley Health System [facility]12-11-2024 NotePatient Outreach ([facility]) KALINA RUDD ([id number]) 1940 F [facility] Date Time Provider Department 01/21/24 KORINA BILLY During your visit today, we recorded the following information about you: Korina Billy RN 01/21/2024 11:31 AM Signed Transition Care Management (TCM) Initial Outreach PCP Update / Actionable Items N/A - No specialty updates needed Patient Source: Cho-mj-Dafwvom (OON) Discharge Outreach Summary: spoke with patient doing well at home, denies any worsening chest pain. Recovering from surgery. Has not checked BP yet today but will be taking her medications soon and will check this awhile after taking. Assisted with PCP follow up appointment for 01/26 Patient discharged from [facility] Discharge date: 01/19/2024 Admitted for: CP, STEMI Readmission Risk: n/a Value-Based Contract: Pedro MONROY Contact: Contact made with patient: Yes Hi, my name is Korina Billy RN and I am calling from the [facility] on behalf of your Primary Care [...] to speak with a social work steam oven operator to help give you support for [...] I will send your request to a home care scheduler who will contact and assist you with [...] a previously scheduled follow-up appointment, route to [facility] for updated appointment type or to schedule [...] Assessed Reason for Visit: Transition Of Care [3585] Cmt: Hospital discharge [facility] 01/19/2024 - Initial outreach Prescriptions as of 01/21/2024 - metoprolol succinate ER (TOPROL XL) 50 mg 24 hr tablet Ta (more content not included)...[facility]12-10-2024 Discharge summary Date of Service 01/20/2024 Discharge Diagnosis NSTEMI Multivessel disease s/p PCI Hx of HTN Hospital Course 83-year-old female with past medical hx of HTN and chronic pain presented from [facility] as a transfer with concerns for STEMI. Patient presented to [facility] ER initially with concerns of elevated blood [...] was injected she then underwent 3 shocks. 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 When patient arrived patient was chest pain-free on IV heparin drip and IV nitroglycerin. On presentation to [facility], she was chest pain-free, was not having [...] should follow up with Dr. Rodrigo Hayes, Saw Tailer following discharge Repeat BMP in 1 week [...] up with your Primary Care Physician and Saw Tailer as recommended. _ 2. Some of your [...] reach out to our [facility] office at [phone] for general queries and [phone] for medication refills. 4. All your medical records and results are available to you through our [facility] Patient Portal. Tosign up, please visit [email or web address] Medications New Prescription aspirin (aspirin 81 mg [...] as needed as needed for dry eyes. [id number] Milligram by mouth once a day. Discontinued amLODIPine (amLODIPine 2.5 mg oral tablet)1 tab(s) by mouth once a day. estradiol (estradiol 0.025 mg/24 hours weekly transdermal film, extended release)1 patch(es) Topical every week. Follow Up Follow Up with KAREN RESENDIZ MD When:Within 5 to 7 days Where:[address], [place] [id number] Follow Up with JOEL JOYNER MD When:02/18/2024 11:30 AM EST Where:[address] [facility] [address] [place], [place] [id number]- [phone] Follow Up Appointments No qualifying data available. [...] PM Digitally Signed by ALIN THOMPSON MD [facility] HospitalRgzfaziu51-55-7151 Hospital Discharge instructions Patient Education 01/20/2024 16:20:37 [...] need to report the following to your chin strap cutter: Any draining or oozing from the site [...] Document Reviewed: 01/28/2014 ExitCare Patient Information 2014 [employer]. This information is not intended to replace [...] Care 01/18/2024 01:40:06 With:KAREN RESENDIZ MD Address: [address] [place] [address]- When:5 to 7 days With:JOEL JOYNER MD Address: [address] [facility] [address] [place] [address]- [phone] When:02/18/2024 11:30:00 [facility] 12-10-2024 Note Discharge Instructions Thank you for allowing [facility] to assist you with your healthcare needs. The following is importantdischarge information regarding your hospital visit. Your Care Team KAREN RESENDIZ MD What to do next Instructions From Your Doctor 1. Kindly follow up with your Primary Care Physician and Saw Tailer as recommended. _ 2. Some of your [...] reach out to our [facility] office at [phone] for general queries and [phone] for medication refills. 4. All your medical records and results are available to you through our [facility] Patient Portal. Tosign up, please visit [email or web address]/ Scheduled Follow-Up Appointments Appointment Type When With Where Contact Information StatusCV Hospital Follow Up 02/18/2024 11:30 AM EST SAMANTHA JOYNER [facility] Confirmed Follow Up Appointments Follow Up with KAREN RESENDIZ MD When:Within 5 to 7 days Where:[address] [place] [address]- Follow Up with JOEL JOYNER MD When:02/18/2024 11:30 AM EST Where:[address] [facility] [address] [place] [address]- [phone] The Following Activity and Diet Have Been [...] Duration: 90 Days Refills: 5 Pickup at [facility] New clopidogrel (Plavix 75 mg oral tablet) 1 tab(s) by mouth Once a day Duration: 90 Days Refills: 4 Pickup at [facility] New losartan (losartan 25 mg oral tablet) 1 tab(s) by mouth Once a day Duration: 30 Days Refills: 5 Pickup at [facility] New rosuvastatin (rosuvastatin 20 mg oral tablet) 1 tab(s) by mouth Daily at bedtime Duration: 90 Days Refills: 4 Pickup at [facility] Changed metoprolol (metoprolol succinate 50 mg oral TABLET extended release) 1 tab(s) by mouth Once a day Duration: 30 Days Do not crush or chew (controlled release) Pickup at [facility] Unchanged crisaborole topical (crisaborole 2% [...] by mouth Once a day Pharmacy Information [facility]: [address] [place] [address] [phone] What How Much When Comments Stop Taking [...] providers or retail pharmacies. Medication Leaflets losartan (jairisela roweCristopher Melton What is the most important [...] may report side effects to FDA at 7-855-RCH-7080. What other drugs will affect losartan? Sometimes [...] drugs may affect losartan, including prescription and ysuq-xvr-sguobna medicines, vitamins, and herbal products. Not all [...] to ensure that the information provided by [employer]. ('Mult[employer]') is accurate, up-to-date, and complete, but no guarantee is made to that effect. Drug information contained herein may be time sensitive. [employer] information has been compiled for use by healthcare practitioners and consumers in the [place] and therefore [employer] does not warrant that uses outside of the [place] are appropriate, unless specifically indicated otherwise. [employer] drug information does not endorse drugs, diagnose patients or recommend therapy. [employer] drug information isan informational resource designed to [...] effective or appropriate for any given patient. [employer] does not assume any responsibility for any aspect of healthcare administered with the aid of information [employer] provides. The information contained herein is not intended to cover all possible uses, directions, precautions, warnings, drug interactions, allergic reactions, or adverse effects. If you have questions about the drugs you are taking, check with your doctor, nurse or pharmacist. Copyright 2954-6022 [employer]. Version: 19.. Revision Date: 08/08/2022. clopidogrel (kloe [...] may report side effects to FDA at 3-592-LEX-5855. What other drugs will affect clopidogrel? Sometimes it is not safe to use certain medications at the same time. Some drugs can affect your blood levels of other drugs you take, which may increase side effects or make the medications less effective. Tell your doctor about all your other medicines, especially: a stomach acid maintenance representative such as omeprazole, Nexium, or Prilosec; an antidepressant such as citalopram, fluoxetine, sertraline, Cymbalta, Effexor, Lexapro, Pristiq, or Prozac; rifampin; a blood thinner--warfarin, Coumadin, Jantoven; or NSAIDs (nonsteroidal anti-inflammatory drugs)--aspirin, ibuprofen (Advil, Motrin), naproxen (Aleve), celecoxib, diclofenac, indomethacin, meloxicam, and others. This list is not complete. Other drugs may affect clopidogrel, including prescription and uwwl-ogd-sxmpvlg medicines, vitamins, and herbal products. Not all [...] to ensure that the information provided by [employer]. ('[employer]') is accurate, up-to-date, and complete, but no guarantee is made to that effect. Drug information contained herein may be time sensitive. [employer] information has been compiled for use by healthcare practitioners and consumers in the [place] and therefore [employer] does not warrant that uses outside of the [place] are appropriate, unless specifically indicated otherwise. [employer] drug information does not endorse drugs, diagnose patients or recommend therapy. [employer] drug information isan informational resource designed to [...] effective or appropriate for any given patient. [employer] does not assume any responsibility for any aspect of healthcare administered with the aid of information [employer] provides. The information contained herein is not intended to cover all possible uses, directions, precautions, warnings, drug interactions, allergic reactions, or adverse effects. If you have questions about the drugs you are taking, check with your doctor, nurse or pharmacist. Copyright 8984-9778 [employer]. Version: 18.01. Revision Date: 05/10/2020. rosuvastatin (brianne [...] higher rate than other people. Make sure yourdoctor knows if you are . You may [...] may report side effects to FDA at 3-921-YZL-4012. What other drugs will affect rosuvastatin? When [...] drugs may affect rosuvastatin, including prescription and zowi-fyv-fkaoyxi medicines, vitamins, and herbal products. Not all [...] to ensure that the information provided by [employer]. ('Multum') is accurate, up-to-date, and complete, but no guarantee is made to that effect. Drug information contained herein may be time sensitive. [employer] information has been compiled for use by healthcare practitioners and consumers in the [place] and therefore [employer] does not warrant that uses outside of the [place] are appropriate, unless specifically indicated otherwise. [employer] drug information does not endorse drugs, diagnose patients or recommend therapy. [employer] drug information isan informational resource designed to [...] effective or appropriate for any given patient. [employer] does not assume any responsibility for any aspect of healthcare administered with the aid of information [employer] provides. The information contained herein is not intended to cover all possible uses, directions, precautions, warnings, drug interactions, allergic reactions, or adverse effects. If you have questions about the drugs you are taking, check with your doctor, nurse or pharmacist. Copyright 6287-4596 [facility]. Version: 13.. Revision Date: 11/16/2019. metoprolol (oral/injection) [...] and hypertension (high blood pressure). It is also used to lower your risk of or needing [...] may report side effects to FDA at 3-370-SZF-4532. What other drugs will affect metoprolol? Tell your doctor about all your current medicines. Many drugs can affect metoprolol, especially: any other heart or blood pressure medications; epinephrine (Epi-Pen); an antidepressant; an ergot medicine--dihydroergotamine, ergonovine, ergotamine, methylergonovine; or an MAO inhibitor--isocarboxazid, linezolid, phenelzine, rasagiline, selegiline, tranylcypromine. This list is not complete and many other drugs may affect metoprolol. This includes prescription and ivcv-noe-ucowqlg medicines, vitamins, and herbal products. Not all [...] to ensure that the information provided by [employer]. ('[employer]') is accurate, up-to-date, and complete, but no guarantee is made to that effect. Drug information contained herein may be time sensitive. [employer] information has been compiled for use by healthcare practitioners and consumers in the [place] and therefore [employer] does not warrant that uses outside of the [place] are appropriate, unless specifically indicated otherwise. [employer] drug information does not endorse drugs, diagnose patients or recommend therapy. [employer] drug information isan informational resource designed to [...] effective or appropriate for any given patient. [employer] does not assume any responsibility for any aspect of healthcare administered with the aid of information [employer] provides. The information contained herein is not intended to cover all possible uses, directions, precautions, warnings, drug interactions, allergic reactions, or adverse effects. If you have questions about the drugs you are taking, check with your doctor, nurse or pharmacist. Copyright 0709-2800 [employer]. Version: 19.. Revision Date: 09/18/2022. Education Materials [...] need to report the following to your chin strap cutter: Any draining or oozing from the site [...] Document Reviewed: 01/28/2014 [employer]Care Patient Information 2015 [employer]. This information is not intended to replace [...] Document Reviewed: 01/28/2014 ExitCare Patient Information 2015 [employer]. This information is not intended to replace advicegiven to you by your health care provider. Make sure you discuss any questions you have with your health care provider. Additional Information VACCINATE! IT SAVES LIVES! Members of the community who have not yet received the COVID-19 vaccine and would like to receive it can visit one of [facility] vaccine clinics. There are many vaccine clinic locations within the [facility]. For locations and available times, please visit [email or web address] I (morecontent not included)... [id number] NoteSINUS RHYTHM ATRIAL PREMATURE COMPLEX PROBABLE LVH WITH SECONDARY REPOL ABNRM INFERIOR INFARCT, OLD Electronic Signature: AKHIL THOMAS MD 01/20/2024 19:03:55[facility] 12-09-2024 Progress note Date of Service 01/19/2024 Chief Complaint Transfer from [facility] with hypertension and concerns for STEMI Subjective [...] of hypertension and chronic pain, presented from [facility] as a transfer with concerns for STEMI. At [facility] patient underwent cardiac catheterization which showed [...] Spent 30 minutes Digitally Signed by PAM EHRNANDEZ MD on 01/19/2024 07:07 PM Digitally Signed by PAM HERNANDEZ MD on 01/19/2024 10:17 PM Digitally Signed by ALIN THOMPSON MD [facility] [id number] NoteSINUS RHYTHM INFERIOR INFARCT, OLD Electronic Signature: AKHIL THOMAS MD 01/20/2024 19:03:43[facility] 12-09-2024 Note* Exam Date Time Procedure Performing Provider Status 01/19/24 2:03 PM Percut Transluminal Coronary Angioplasty Auth (Verified) [facility] 12-09-2024 Progress note Date of Service 01/18/2024 Chief Complaint Transfer from [facility] with hypertension and concerns for STEMI Subjective [...] of hypertension and chronic pain, presented from [facility] as a transfer with concerns for STEMI. At [facility] patient underwent cardiac catheterization which showed severe multivessel CAD involving the LAD, OM and RCA. Patient patient went into V-fib after the RCA was injected, she then underwent 3 shock, before she revived. Patient was started on IV heparin drip and IV nitroglycerin, and was transferred to [facility] with STEMI alert. Will continue heparin and nitroglycerin for now. Coronary angiographic imaging was reviewed with Dr. Hayes, plan is to do PCI to OM1 and LAD tomorrow on Friday01/19/2024. Will continue aspirin and statin Time Spent 30 minutes Digitally Signed by PAM HERNANDEZ MD on 01/18/2024 03:37 PM Digitally Signed by PAM HERNANDEZ MD on 01/18/2024 03:42 PM [facility] [id number] NoteSINUS TACHYCARDIA VENTRICULAR PREMATURE COMPLEX INFERIOR INFARCT, OLD Electronic Signature: AKHIL THOMAS MD 01/20/2024 19:03:35[facility] 12-08-2024 Progress note Date of Service 01/18/2024 Chief Complaint Transfer from [facility] with hypertension and concerns for STEMI Subjective [...] of hypertension and chronic pain, presented from [facility] as a transfer with concerns for STEMI. At [facility] patient underwent cardiac catheterization which showed severe multivessel CAD involving the LAD, OM and RCA. Patient patient went into V-fib after the RCA was injected, she then underwent 3 shock, before she revived. Patient was started on IV heparin drip and IV nitroglycerin, and was transferred to [facility] with STEMI alert. Will continue heparin and nitroglycerin for now. Coronary angiographic imaging was reviewed with Dr. Hayes, plan is to do PCI to OM1 and LAD tomorrow on Friday01/19/2024. Will continue aspirin and statin Time Spent 30 minutes Digitally Signed by PAM HERNANDEZ MD on 01/18/2024 03:37 PM Digitally Signed by PAM HERNANDEZ MD on 01/18/2024 03:42 PM [facility] [id number] Evaluation + Plan noteExtracted from: Title:History and Physical Author:EDGAR ANDRE MD Date:01/18/24 NSTEMI History of hypertension DVT prophylaxis CODE STATUS Past medical history hypertension, chronic pains. At [facility] patient underwent cardiac catheterization which showed severe multivessel CAD involving the LAD, OM and RCA it appears patient went into V-fib after the RCA was injected, she then underwent 3 shock, before she revived. Patient was started on IV heparin drip and IV nitroglycerin, and was transferred to [facility] with STEMI alert. Patient is currently chest [...] Appointment Date:02/18/2024 11:30:00 AM Scheduled Provider:SAMANTHA JOYNER [facility] 12-08-2024 History and physical note Date of Service 01/18/2024 Chief Complaint Transfer from [facility] with hypertension and concerns for STEMI History of Present Illness 83-year-old female presented from [facility] as a transfer with concerns for STEMI. Past medical history significant for hypertension and chronic pain. Patient presented to [facility] this morning with concerns of elevated [...] was injected she then underwent 3 shocks. 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 When patient arrived patient was chest pain-free on IV heparin drip and IV nitroglycerin. On presentation to [facility], she was chest pain-free, was not having [...] Past medical history hypertension, chronic pains. At [facility] patient underwent cardiac catheterization which showed severe multivessel CAD involving the LAD, OM and RCA it appears patient went into V-fib after the RCA was injected, she thenunderwent 3 shock, before she revived. Patient was started on IV heparin drip and IV nitroglycerin, and was transferred to [facility] with STEMI alert. Patient is currently chest [...] EDGAR ANDRE MD on 01/18/2024 06:39 AM [facility] [id number] History and physical note Date of Service 01/18/2024 Chief Complaint Transfer from [facility] with hypertension and concerns for STEMI History of Present Illness 83-year-old female presented from [facility] as a transfer with concerns for STEMI. Past medical history significant for hypertension and chronic pain. Patient presented to [facility] this morning with concerns of elevated [...] was injected she then underwent 3 shocks. 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 When patient arrived patient was chest pain-free on IV heparin drip and IV nitroglycerin. On presentation to [facility], she was chest pain-free, was not having [...] Past medical history hypertension, chronic pains. At [facility] patient underwent cardiac catheterization which showed severe multivessel CAD involving the LAD, OM and RCA it appears patient went into V-fib after the RCA was injected, she thenunderwent 3 shock, before she revived. Patient was started on IV heparin drip and IV nitroglycerin, and was transferred to [facility] with STEMI alert. Patient is currently chest [...] EDGAR ANDRE MD on 01/18/2024 06:39 AM [facility] [id number] Note ORIGINAL EXAMINATION: ONE XRAY VIEW OF [...] Sign Date: 01/18/2024 5:35:45 AM Ordering Provider: [facility]12-08-2024 Cardiology Progress note Patient was paged out as a STEMI alert to [facility] after already being paged out as a STEMIalert at [facility] she underwent a cardiac catheterization which showed severe multivessel CAD involving the LAD, OM, and RCA. It appears patient went into VT/V-fib after the RCA was injected she then underwent 3 shocks. 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 When patient arrived patient was chest pain-free on IV heparin drip and IV nitroglycerin. Coronary angiography images were reviewed with interventionalists on-call. Patient is currentlystable and will be planned for PCI to OM 1 and LAD on Friday Digitally Signed by KENNY KWAN MD on 01/18/2024 05:28 AM Digitally Signed by KENNY KWAN MD on 01/18/2024 05:29 AM [facility] [id number] NoteSINUS RHYTHM LEFT ATRIAL ENLARGEMENT BORDERLINE LEFT AXIS DEVIATION NONSPECIFIC ST & T-WAVE ABNORMALITY Electronic Signature: ELLEN MUÑIZ MD 01/18/2024 14:47:25[facility] 12-07-2024 NoteHNO ID: [id number] Author: SHEILA FRANK MD Service: ? Author Type: Physician Type: Progress Notes Filed: 01/17/2024 16:08 Note Text: Virtualist Progress Note Triage Call I have communicated my name and active licensure. The patient's identity and physical location were verified at the time of this visit. Either the patient or their legal community health representative has been informed of the risks and benefits of -- and alternatives to -- treatment through a remote evaluation and consents to proceed with the evaluation remotely. Triage source: Triage Call (Nurse Salon Stylist, [facility] - NOC Triage, [facility] Triage, [facility] Phone Triage) Was patient downgraded (i.e. [...] CC Home Care nurse triage, or an [facility] Care, the disposition is Go to ED Now): See provider within 4 hours Virtualist Recommended Disposition: Go to ED if she still has a SANTOS in 30-60 minutes. She should call PCP with current BP readings Signed in as Primary Virtualist, Secondary Virtualist, or HEALTH SYSTEM Telehealth provider: Secondary SIGNATURE: Sheila Frank MD PATIENT NAME: Kalina Mcgee Benchoff DATE: January 17, 2024 [facility]12-07-2024 History of Present illness Narrative* Sheila Frank MD - 01/17/2024 3:55 PM EST Virtualist Progress Note Triage Call I have communicated my name and active licensure. The patient's identity and physical location wereverified at the time of this visit. Either the patient or their legal community health representative has been informed of the risks and benefits of -- and alternatives to -- treatment through a remote evaluation andconsents to proceed with the evaluation remotely. Triage source: Triage Call (Nurse Salon Stylist, [facility] - [facility] Triage, [facility] Triage, [facility] Phone Triage) Was patient downgraded (i.e. [...] in as Primary Virtualist, Secondary Virtualist, or HEALTH SYSTEM Telehealth provider: Secondary SIGNATURE: Sheila Frank MD PATIENT NAME: Kalina Mcgee Benchoff DATE: January 17, 2024 [facility] Tele[facility] encounter Note * Telephone Encounter [...] : na Protocols used: Blood Pressure - [id number]-CRUAF-[id number] [facility]12-07-2024 Miscellaneous Notes* Telephone Encounter - Cristina [...] : na Protocols used: Blood Pressure - Xoxq-[id number]-RW documented in this encounterBlanch[facility]11[facility]22[facility] Telephone encounter Note * Telephone Encounter - Jimena Pennington LPN - 01/02/2024 11:41 AM EST Per PA results not PA needed this is available to pt. [facility]11-22-2024 Miscellaneous Notes* Telephone Encounter - Jimena Pennington LPN - 01/02/2024 11:41 AM EST Per PA results not PA needed this is available to pt. * Telephone Encounter - Jimena Pennington LPN - 01/02/2024 8:17 AM EST Images from the original note were not included. Electronic PA completed ands response. Prior authorization approved Payer: [facility] [phone] Note from payer: MARCUS Case: [id number], Status: Approved, Coverage Starts on: 01/01/2024 8:02:06 [...] to its destination. To be filled at: [facility] [place] [address] [phone] [facility] -[phone] documented in this encounterBlanch[facility]11-22-[facility] Telephone encounter Note * Telephone Encounter - Jimena Pennington LPN - 01/02/2024 8:17 AM EST Images from the original note were not included. Electronic PA completed ands response. Prior authorization approved Payer: Pedro [phone] Note from payer: MACRUS Case: [id number], Status: Approved, Coverage Starts on: 01/01/2024 8:02:06 [...] to its destination. To be filled at: [facility] [place] [address] [phone] [facility] -[phone] [facility]11-21-2024 Instructions* Patient Instructions* Maddie Sahu APRN.CNS - 01/01/2024 3:43 PM EST Take amlodipine 2.5 mg once daily for a blood pressure 150/80 or greater documented in this encounterBlanchard Valley [facility]11[facility] History of Present illness Narrative* Maddie Sahu APRN.CNS - 01/01/2024 3:00 PM EST SUBJECTIVE: DTaP,Tdap,Td Vaccine(1 - Tdap) Never done Shingrix Vaccine(1 of 2) Never done RSV Vaccine(1 - 1-dose 75+ series) Never done Influenza Vaccine(1) due on 10/12/2023 Covid-19 Vaccine(5 - 2024-25 season) due on 10/12/2023 HPI Kalina Rudd [...] ointment Actually gets compounded RX 0.07% through [facility] from [employer] to use twice weekly [facility] [facility] probiotics--Yeast and Vaginal PH support probiotic. Probiotic [...] Level: 4 - Moderate documented in this encounterBlanchard Valley [facility]11-21-2024 NoteHNO ID: [id number] Author: MADDIE SAHU APRN.CNS Service: ? Author [...] ointment Actually gets compounded RX 0.07% through [facility] from [employer] to use twice weekly [facility] [employer] [facility] probiotics--Yeast and Vaginal PH support probiotic. Probiotic [...] Smokeless tobacco: Never Substance (more content not included)...[facility]11-21-2024 Telephone encounter Note* Telephone Encounter - [...] DAILY DIRECTED Authorizing Provider: KAREN RESENDIZ MD [facility]11-21-2024 Miscellaneous Notes* Telephone Encounter - Karen [...] 31, 2023 5:13 PM documented in this encounterBlanchard Valley [facility]11-[facility]24 Telephone encounter Note * Telephone Encounter [...] : NO Protocols used: Blood Pressure - [id number]-[id number]-YO [facility]11-20-2024 Miscellaneous Notes* Telephone Encounter - Mel [...] : NO Protocols used: Blood Pressure - [id number]-[id number]-IH documented in this encounterBlanchard [facility]11-20-2024 Telephone encounter Note * Telephone Encounter [...] Riggs RN December 31, 2023 5:13 PM [facility]09-30-2024 Telephone encounter Note* Telephone Encounter - Maryjane Flores LPN - 11/10/2023 4:29 PM EDT PATIENT NOTIFIED OF SAME. [facility]09-30-2024 Miscellaneous Notes* Telephone Encounter - Maryjane [...] next scheduled appointment. Thanks. documented in this encounterBlanchard Valley [facility] System [facility]09-30-2024 Telephone encounter Note * Telephone Encounter - Nelli Reyes APRN.CNP - 11/10/2023 4:10 PM EDT [place]. Please call patient and let them know recent labs looked stable, vitamin d is with in normallimits so she does not need to restart a supplement. No changes needed at this time and to keep next scheduled appointment. Thanks. [facility]09-27-2024 NoteHNO ID: [id number] Author: NELLI REYES APRN.CNP Service: ? Author [...] ointment Actually gets compounded RX 0.07% through [facility] from [employer] to use twice weekly dorzolamide HCl/PF (DORZOLAMIDE, [...] area(s) 2 times daily [facility] prob[facility]--Yeast and Vaginal PH support probiotic. Probiotic [...] Recurrent Major Depressive Disorder, in Partial Remission ([facility]) - 09/08/2017 Vitamin D Deficiency - [...] normal. Cognition and Memory (more content not included)...[facility] 11-07-2023 History of Present illness Narrative* Nelli Reyes APRN.[facility] - 11/07/2023 3:01 PM EDT SUBJECTIVE Kalina [...] ointment Actually gets compounded RX 0.07% through [facility] from [employer] to use twice weekly dorzolamide HCl/PF (DORZOLAMIDE, [...] 2 times daily [facility]iscellaneous Medical [facility] probiotics--Yeast and Vaginal PH support probiotic. Probiotic [...] Recurrent Major Depressive Disorder, in Partial Remission ([facility]) - 09/08/2017 Vitamin D Deficiency - [...] appointment.. Nelli Reyes APRN-DARREN documented [facility] Tele[facility] encounter Note * Telephone Encounter - Antonette Pink - 08/15/2023 3:56 PM EDT Patient said she got a letter from [facility] stating she doesn't have anymore refills on this medication and to request it from her pcp. [facility]-05[facility]24 Miscellaneous Notes* Telephone Encounter - Antonette Pink - 08/15/2023 3:56 PM EDT Patient said she got a letter from [facility] stating she doesn't have anymore refills on [...] 15, 2023 3:56 PM documented in this encounterBlanch[facility] Telephone encounter Note * Telephone Encounter [...] Antonette Cuellar August 15, 2023 3:56 PM [facility]03-27-2024 Instructions* Patient Instructions* Karen Resendiz MD - 05/07/2023 11:09 AM EDT Consider Claritin (loratadine) in AM and Zyrtec (cetirizine) or Benadryl (diphenhydramine) at bedtime. Try to get sleep time moved to bedtime instead of 9AM to 2PM. Consider Metamucil nightly to see if helps bulk up stool so not so watery. documented in this encounterBlanchard Valley [facility]03[facility] History of Present illness Narrative* Karen Resendiz MD - 05/07/2023 11:07 AM EDT This note was created using Steeplechase Networksriter. Subjective Kalina Rudd is a 82 year [...] to her. Turns out she went to [facility] but RX went to [facility]. Noted never [...] ointment Actually gets compounded RX 0.07% through [facility] from [employer] to use twice weekly [facility] probiotics--Yeast and Vaginal PH support probiotic. Probiotic [...] sleep. Karen Resendiz MD documented in this encounterBlanchard Valley [facility]10-26[facility]23 Miscellaneous Notes* Telephone Encounter - Maddie Sahu APRN.HOUSE SHORER - 12/05/2022 3:27 PM EDT Which one is she doing? Refilled as previously ordered. It is the same quantity of pills per day. * Telephone Encounter - Irma Crews LPN - 12/05/2022 3:00 PM EDT Contacted pharmacy since a refill was sent in on 11/02/2022. The vice president pharmacy states there was a clarification needed [...] and advise. Shagufta Cuellar documented in this encounterBlanchard Valley [facility]09-[facility] Instructions* Patient Instructions* Karen Resendiz MD [...] staying better at home. documented in this encounterBlanchard Valley [facility] System [facility]09-23[facility] History of Present illness Narrative* Karen Resendiz MD - 11/02/2022 11:13 AM EDT This note was created using [employer]. Subjective Kalina Rudd is a 82 year [...] ointment Actually gets compounded RX 0.07% through [facility] from [employer] to use twice weekly triamcinolone acetonide (KENALOG) [...] the date of the service which included [id number] patient care, completing clinical documentation, obtaining and/or reviewing separately obtained history, performing a medically appropriate examination, counseling and educating the patient/family/caregiver, and ordering medications, tests, or procedures. Karen Resendiz MD documented in this encounterBlanchard Valley [facility]09-12-2023 History of Present illness Narrative* Veronika [...] 22, 2022 9:06 AM documented in this encounterBlanchard Valley [facility]07-12-[facility]23 History of Present illness Narrative* Soco Cummings MA - 08/21/2022 12:49 PM EDT POPULATION HEALTH NAVIGATION OUTREACH Action/FYI Spoke to pt to rescheduled missed wellness, pt doesn't want to see ROTOR CASTING MACHINE SETUP OPERATOR- no openings for PCP, pt added to [...] 21, 2022 12:49 PM documented in this encounterBlanchard Valley [facility]12-29-2022 Miscellaneous Notes* Telephone Encounter - Emily [...] message. Regina Rey LPN documented in this encounterBlanchard Valley Health System [facility]12-27-2022 Miscellaneous Notes* Telephone Encounter - Regina Rey LPN - 02/05/2022 2:17 PM EST Pt was given the message below. She got the pills from [facility] and has not tried them but the [...] pharmacy and pay out of pocket with [employer] voucher for $33 to $47 concepcion range for 90 pills. If she does not know how to get voucher online, can print RX and Voucher for her and send to pharmacy * Telephone Encounter - Gege Dutta RN - 01/17/2022 4:44 PM EST Patient calls and states that [facility] called her and stated that Colestipol would cost her $84. Patient asking if there is anything else can be prescribed due to cost? Please review and advise, Gege Dutta RN documented in this encounterBlanchard Valley [facility]12-06-2022 History of Present illness Narrative* Karen Resendiz MD - 01/15/2022 3:37 PM EST This note was created using Steeplech[employer]riter. Subjective Kalina Rudd is a 81 year [...] to be HCDPOAs. Does not have a buddhism home. Not sleeping at night. Sleeps in [...] indicated. Karen Resendiz MD documented in this encounterBlanchard Valley [facility]11-25-2022 Miscellaneous Notes* Telephone Encounter - Xochitl [...] here? Xochitl Simeon LPN documented in this encounterBlanchard Valley Health System [facility]11-09-2022 Miscellaneous Notes* Telephone Encounter - Manuela [...] KECIA CARDENAS Pharmacy Information Pharmacy Address Telephone [facility] [address] [phone] Manuela Swain RN * Telephone Encounter - [...] discontinue Emilie Pineda RN documented in this encounterBlanchard Valley Health System [facility]11-03-2022 Miscellaneous Notes* Telephone Encounter - Xochitl [...] advise. Emilie Pineda RN documented in this encounterBlanchard Valley Health System [facility]10-27-2022 Miscellaneous Notes* Telephone Encounter - Kym [...] for Nystatin Cream to be sent to [facility] pharmacy pending. Patient would like a call back. Kym Celestin RN documented in this encounterBlanchard Valley Health System [facility]10-21-2022 Miscellaneous Notes* Telephone Encounter - Emilie Pineda RN - 11/30/2021 8:20 AM EDT Rx faxed to [facility]. Emilie Pineda RN * Telephone Encounter [...] minimal irritation and only on some days. [facility] compounding rx to AG to sign. Patient aware provider back in office tomorrow. Emilie Pineda RN documented in this encounterBlanchard Valley Health System [facility]06-08-2022 Instructions* Patient Instructions* Karen Resendiz MD [...] products to prevent diarrhea. documented in this encounterBlanchard Valley Health System [facility]06-08-2022 History of Present illness Narrative* Karen Resendiz MD - 07/18/2021 5:07 PM EDT This note was created using Steeplechase [employer]riter. Subjective Kalina Rudd is a 81 year old female. HISTORY Kalina Rudd is a 81 year old lady here for yearly exam and follow up appointment. Has had bowel leakage and had seen Dr. Olea--told her no one in [place] does surgery for this. Passes gas frequently [...] a lot of cookies for a graduation alliance party. Abrasion on left forearm from hitting something [...] BASIC Karen Resendiz MD documented in this encounterBlanchard Valley Health System [facility]05-10-2022 Miscellaneous Notes* Telephone Encounter - Maddie [...] advise, Gege Dutta RN documented in this encounterBlanchard Valley Health System Blanchard Valley HospitalDischarge summary Author Chetan Nick [facility] Note Date/Time September 19, 2024 7: 28am [facility] Medical Records Department [address] [place] [address] Emergency Department Summary 09/19/24 MR#: [id number] Acct: [id number] Name: KALINA RUDD Rep #:[id number] : 1940 84 From: Chetan Nick DO PCP: Dr. Karen Resendiz MD Status:RE G ER Location: ED HPI History of Present Illness Chief Complaint: Chest Pain Informant: patient and EMS Narrative Narrative: Patient is an 84-year-old female with past med history of hypertension fibromyalgia and coronary disease with stent placement in January 2024. She states that in June 2024 her . Since that time she is dealt with severe depression. She states that last night she felt a burning discomfort along the left side of her chest. She states there was no associatednausea vomiting diaphoresis or shortness of breath. She states that she has a hard time sleeping secondary to her grief/depression. She states that she took the medication prescribed by her family doctor to help with sleep but was unableto sleep and had concern that this abnormal chest discomfort could be cardiac because of her previous heart attack and therefore called EMS to be brought in for evaluation [facility] Medical History History of left heart catheterization STEMI (ST elevation myocardial infarction) Acute coronary syndrome Fibromyalgia HTN (hypertension) Home Medications ?Medication ?Instructions ?Recorded ?Last Taken ?Type Omeprazole [Prilosec] 40 mg PO DAILY 08/23/1302/10 05:00 History duloxetine 60 mg capsule,delayed 60 mg PO DAILY 08/23/13 08:00 History release metoprolol succinate 50 mg 50 mg PO DAILY 05/30/20 Unk nown History tablet,extended release 24 hr aspirin 81 mg tablet,delayed 81 mg PO DAILY 01/24/24 U nknown History release clopidogrel 75 mg tablet 75 mg PO DAILY 01/24/24 Unkn own History dorzolamide 2 % eye drops 1 drp ophthalmic (eye) TID 1 03/26/23 Unknown History rosuvastatin 20 mg tablet 20 mg PO QHS 01/24/24 Unknow n History amlodipine 10 mg tablet 10 mg PO QDAY #30 tabs 01/10 /25 Unknown Rx isosorbide mononitrate 30 mg 30 mg PO QDAY 02/20/24 Un known History tablet,extended release 24 hr losartan 50 mg tablet 50 mg PO QDAY 02/20/24 Unkno wn History gabapentin 300 mg capsule 300 mg PO TIDCM 09/07/24 Unk nown History Allergy/AdvReac Type Severity Reaction Status Date / Time amitriptyline Allergy Unknown Verified 09/19/24 03:54 codeine Allergy Chest Verified 09/19/24 03:54 tightness trazodone Allergy Other Verified 09/19/24 03:54 Family History (Reviewed 09/07/24 @ 08:17 by Joanne Apple ROTOR CASTING MACHINE SETUP OPERATOR, ROTOR CASTING MACHINE SETUP OPERATOR-C) Father Hypertension Hx of CABG Surgical History History of cholecystectomy History of coronary artery stent placement Social History Smoking Status: Never smoker alcohol intake: never substance use type: does not use caffeine: No ROS ROS ED Constitutional Constitutional ED: Denies chills or fever(s) Eyes Eyes: Denies change in vision ENT ENT ED: Denies sore throat Cardiovascular Cardiovascular: Reports chest pain; Denies palpitations or racing heartbeat Respiratory/Chest Respiratory/Chest: Denies cough or dyspnea Gastrointestinal Gastrointestinal: Denies abdominal pain, diarrhea, nausea or vomiting Musculoskeletal Musculoskeletal: Denies back pain or myalgias Integumentary Denies rash Neurologic Neurologic: Denies headache(s) Psychiatric Psychiatric: Reports depression Hematologic/Lymphatic Hematologic/Lymphatic: Denies easy bleeding or easy bruising EXAM Physical Exam Const Vital Signs: 09/19/24 03:55 09/19/24 03:55 09/19/24 04:54 Temperature 98.5 F Temperature Source Oral Pulse Rate 93 94 Respiratory Rate 18 18 Respiratory Effort Normal Blood Pressure 151/63 H 123/82 H Blood Pressure Mean 92 95 Pulse Ox 97 98 Oxygen Delivery Method Room Air Room Air 09/19/24 05:00 09/19/24 06:00 09/19/24 07:00 Temperature Temperature Source Pulse Rate 84 80 90 Respiratory Rate 20 H 18 19 H Respiratory Effort Blood Pressure 124/57 H 114/50 L Blood Pressure Mean 79 71 Pulse Ox 99 97 97 Oxygen Delivery Method Room Air Room Air Room Air Positive well nourished and well developed General Appearance ED: well developed; Negative for pallor HEENT Reports dry mucous membranes HEENT Narrative: Normocephalic atraumatic No tongue or lip swelling no oral lesions no airway edema or compromise; no secondary findings in the posterior pharynx to suggest infection Mouth ED: Yes dry mucous membranes Mouth: dry mucous membranes Eyes PERRL and EOMs intact bilaterally General Eye ED: Negative for scleral icterus Neck supple and no JVD Chest Wall Chest Narrative: There is reproducible left-sided chest wall pain with palpation without bony deformity or crepitance Resp normal respiratory effort and clear to auscultation bilaterally Resp Narrative: No nasal flaring retractions tachypnea or accessory muscle use Cardio regular rate and regular rhythm Rate: other Other Details: Heart is regular rate and rhythm Radial and carotid pulses are equal and symmetric No JVD noted No carotid bruit GI normal to inspection, nondistended, normoactive bowel sounds, non-tender, non-distended and no masses GI Narrative: No voluntary guarding or rigidity or pulsatile mass Auscultation: normoactive bowel sounds Palpation: soft Extremity normal to inspection Extremity Narrative: No asymmetric edema no pitting edema negative Homans' sign bilaterally Neuro oriented x3, CN's II-XII intact bilaterally and no sensory deficits noted Sensorium / Orientation: alert Motor Exam: strength 5/5 throughout Psych Psych Narrative: Patient has a depressed/flat affect Skin no rashes or lesions noted General Skin Exam: Negative for jaundice or pallor MDM MDM MDM Narrative Medical decision making narrative: Patient arrived to the ER in no acute distress. She reported a vague left-sided chest discomfort which she described more as a burning sensation. There was no associated nausea vomiting diaphoresis or shortness of breath. Symptoms are not classic cardiac in nature but she does have known CAD with stent placement and therefore this could be atypical presentation for ACS. Secondary to this an EKG was obtained. EKG showed no signs of ischemia or STEMI. She did not report any type of pleuritic chest pain and she is not tachycardic or hypoxic so I have low concern for DVT/PE and felt no need for a CTA or D-dimer. Blood work revealed no signs of acute blood loss anemia or leukocytosis to suggest secondary infection. Chest x-ray revealed no signs of pneumonia or pneumothorax or pleural effusion. The patient's troponin is normal at a value of 13. The patient states she has had pain that has been constant in nature for multiple hours. Therefore a normal troponin effectively rules out active cardiac event. However because of her advanced age and stent placement roughly 8 months ago I will do a delta troponin at 2 hours. This revealed no significant elevation indicating no signs of ACS. After receiving Ativan in the ER the patient did report improvement of symptoms. On reevaluation she is resting comfortably and vitals remained stable. Therefore at this time as workup reveals no sign of acute coronary syndrome and her symptoms have improved with treatment there is no need for further intervention or admission and she is otherwise safe for discharge. History & Record Review Discussion w/independent historian: EMS personnel and Patient Lab Data Attestation: I reviewed the patient's lab results. Labs: Laboratory Results - last 24 hr 09/19/24 09/19/24 09/19/24 04:05 04:05 04:48 WBC Cancelled 9.2 Corrected WBC Cancelled RBC Cancelled 3.84 L Hgb Cancelled 11.4 L Hct Cancelled 34.9 L MCV Cancelled 90.9 MCH Cancelled 29.7 MCHC Cancelled 32.7 RDW Std Deviation Cancelled 46.4 H RDW Coeff of Marco Antonio Cancelled 13.8 Plt Count Cancelled 221 MPV Cancelled 10.1 Immature Gran % (Auto) Cancelled 0.400 Neut % (Auto) Cancelled 65.7 Lymph % (Auto) Cancelled 23.6 Avery % (Auto) Cancelled 7.5 Eos % (Auto) Cancelled 2.4 Baso % (Auto) Cancelled 0.4 Absolute Neuts (auto) Cancelled 6.0 Absolute Lymphs (auto) Cancelled 2.17 Total Counted Cancelled Neutrophils % (Manual) Cancelled Band Neutrophils % Cancelled Lymphocytes % (Manual) Cancelled Monocytes % (Manual) Cancelled Eosinophils % (Manual) Cancelled Basophils % (Manual) Cancelled Metamyelocytes % Cancelled Myelocytes % Cancelled Promyelocytes % Cancelled Blast Cells % Cancelled Plasma Cell % (Manual) Cancelled Other Cells % Cancelled Nucleated RBC % Cancelled 0 Nucleated RBCs/100 WBC Cancelled Differential Comment Cancelled Diff Path Review Cancelled Hypersegmented Neuts Cancelled Atypical Lymphocytes Cancelled Reactive Lymphocytes Cancelled Smudge Cells Cancelled Toxic Granulation Cancelled Toxic Vacuolation Cancelled Dohle Bodies Cancelled Gloria Rods Cancelled Platelet Estimate Cancelled Plt Morphology Comment Cancelled RBC Morphology Cancelled Cancelled Polychromasia Cancelled Hypochromasia Cancelled Basophilic Stippling Cancelled Anisocytosis Cancelled Microcytosis Cancelled Macrocytosis Cancelled Spherocytes Cancelled Sickle Cells Cancelled Target Cells Cancelled Tear Drop Cells Cancelled Ovalocytes Cancelled Stomatocytes Cancelled [place] Bodies Cancelled Serena Cells Cancelled Bite Cells Cancelled Crenated Cell Cancelled Acanthocytes (Spur) Cancelled Rouleaux Cancelled Schistocytes Cancelled Sodium Cancelled Potassium Cancelled Chloride Cancelled Carbon Dioxide Cancelled Anion Gap Cancelled BUN Cancelled Creatinine Cancelled Estim Creat Clear Calc Cancelled Est GFR (MDRD) Non-Af Cancelled BUN/Creatinine Ratio Cancelled Glucose Cancelled Calcium Cancelled Magnesium Cancelled Troponin T High Sens Cancelled TSH Cancelled 09/19/24 05:23 WBC Corrected WBC RBC Hgb Hct MCV MCH MCHC RDW Std Deviation RDW Coeff of Marco Antonio Plt Count MPV Immature Gran % (Auto) Neut % (Auto) Lymph % (Auto) Avery % (Auto) Eos % (Auto) Baso % (Auto) Absolute Neuts (auto) Absolute Lymphs (auto) Total Counted Neutrophils % (Manual) Band Neutrophils % Lymphocytes % (Manual) Monocytes % (Manual) Eosinophils % (Manual) Basophils % (Manual) Metamyelocytes % Myelocytes % Promyelocytes % Blast Cells % Plasma Cell % (Manual) Other Cells % Nucleated RBC % Nucleated RBCs/100 WBC Differential Comment Diff Path Review Hypersegmented Neuts Atypical Lymphocytes Reactive Lymphocytes Smudge Cells Toxic Granulation Toxic Vacuolation Dohle Bodies Gloria Rods Platelet Estimate Plt Morphology Comment RBC Morphology Polychromasia Hypochromasia Basophilic Stippling Anisocytosis Microcytosis Macrocytosis Spherocytes Sickle Cells Target Cells Tear Drop Cells Ovalocytes Stomatocytes [place] Bodies Serena Cells Bite Cells Crenated Cell Acanthocytes (Spur) Rouleaux Schistocytes Sodium 136 Potassium 4.1 Chloride 101 Carbon Dioxide 20.9 L Anion Gap 14 BUN 34 H Creatinine 1.16 Estim Creat Clear Calc 31.54 L Est GFR (MDRD) Non-Af 46 L BUN/Creatinine Ratio 29.4 H Glucose 124 H Calcium 9.6 Magnesium 2.5 H Troponin T High Sens 13 TSH 3.110 Radiography Diagnostic Testing: Clinical Impression(s) from Imaging Studies Chest X-Ray 09/19/24 04:40 IMPRESSION: No acute chest findings Reading Location: [facility] Chest x-ray as interpreted by the emergency medicine physician reveals no acute infiltrate pneumothorax or pleural effusion Discharge Plan Triage Chief Complaint: Chest Pain ED Provider: Chetan Nick Dx/Rx/DC Orders Clinical Impression: HTN (hypertension), Fibromyalgia, Nonspecific chest pain, Depression Instructions: Depression: Tips to Help Yourself, ED Chest Pain, Uncertain Cause Prescriptions: No Action isosorbide mononitrate 30 mg tablet extended release 24 hr 30 mg PO QDAY losartan 50 mg tablet 50 mg PO QDAY amlodipine 10 mg tablet 10 mg PO QDAY Qty: 30 11RF duloxetine 60 MG capsule 60 mg PO DAILY Patient Comments: ANTI-DEPRESSANT Omeprazole [Prilosec] 40 MG capsule 40 mg PO DAILY Patient Comments: ACID REFLUX gabapentin 300 mg capsule 300 mg PO TIDCM Patient Comments: NEUROPATHY metoprolol succinate 50 MG tablet 50 mg PO DAILY clopidogrel 75 mg tablet 75 mg PO DAILY aspirin 81 mg tablet,delayed release (DR/EC) 81 mg PO DAILY dorzolamide 2 % drops 1 drp ophthalmic (eye) TID rosuvastatin 20 mg tablet 20 mg PO QHS Primary Care Provider: Karen eRsendiz Referrals: Karen Resendiz MD [Primary Care Provider] - Activity Restrictions/Additional Instructions: Your workup today reveals no sign of active cardiac damage. Please continue allof your home medications as directed by your doctor and follow-up with your family doctor as well as chin strap cutter for repeat evaluation. Return to the ER should you have any further concerns Print Language: Faroese Disposition Disposition: Home, Self Care What to do if you have Problems For any increased pain, shortness of breath, bleeding, nausea or vomiting, chestpain, or any unexpected problems, contact your Primary Care Provider. Call [facility] ([phone]) or report to the closest Emergency Room. Call 911 if necessary. 09/19/24727 <Electronically signed by Chetan Nick DO> Cosigner Signature (if applicable): CC: Dr. Karen Resendiz MD ~ Signed [facility] Work Phone: Evaluation note* Diagnosis Essential hypertension- Primary Unspecified essential hypertension Generalized anxiety disorder Recurrent major depressive disorder, in partial remission (HCC) HYPERCHOLESTEROLEMIA Pure hypercholesterolemia [facility]* Diagnosis Fibromyalgia- Primary Mylagia and myositis, unspecified Generalized anxiety disorder Vitamin D deficiency Unspecified vitamin D deficiency Fecal smearing Recurrent major depressive disorder, in partial remission (HCC) Essential hypertension Unspecified essential hypertension Mixed hyperlipidemia documented [facility]* Diagnosis Intertrigo- Primary Other specified erythematous condition documented [facility] this [facility]* Diagnosis Irritable bowel syndrome with diarrhea- Primary Irritable bowel syndrome S/P cholecystectomy Other acquired absence of organ Dermatitis Contact dermatitis and other eczema, due to unspecified cause Chronic vaginitis Vaginitis and vulvovaginitis, unspecified Recurrent major depressive disorder, in partial remission (HCC) Essential hypertension Unspecified essential hypertension Generalized anxiety disorder documented [facility] this [facility]* Diagnosis Dermatitis Contact dermatitis and other eczema, due to unspecified cause documented in this encounter [facility]* Diagnosis Pruritic dermatitis- Primary Unspecified pruritic disorder Essential hypertension Unspecified essential hypertension Generalized anxiety disorder Recurrent major depressive disorder, in partial remission (HCC) Vaginal burning Other specified symptom associated with female genital organs Vaginal atrophy Postmenopausal atrophic vaginitis Need for influenza vaccination Need for prophylactic vaccination and inoculation against influenza Vitamin D deficiency Unspecified vitamin D deficiency [facility]* Diagnosis Essential hypertension- Primary Unspecified essential hypertension Dermatitis Contact dermatitis and other eczema, due to unspecified cause Recurrent major depressive disorder, in partial remission (HCC) Encounter for immunization Need for other specified prophylactic vaccination against single bacterial disease Encounter for long-term current use of medication [facility] Diagnosis Generalized anxiety disorder Recurrent major depressive disorder, in partial remission (HCC) [facility]* Diagnosis Vitamin D deficiency- Primary Unspecified vitamin D deficiency Other insomnia Eczema, unspecified type Essential hypertension Unspecified essential hypertension Recurrent major depressive disorder, in partial remission (HCC) documented in this encounter [facility] Diagnosis Fibromyalgia- Primary Mylagia and myositis, unspecified Essential hypertension Unspecified essential hypertension documented in this encounter [facility] Diagnosis Essential hypertension- Primary Unspecified essential hypertension [facility] Diagnosis Encounter for medical assessment- Primary documented in this encounter [facility] Diagnosis Essential hypertension- Primary Unspecified essential hypertension Coronary artery disease involving [place] coronary artery of [place] heart without angina pectoris S/P angioplasty with stent Other postprocedural status HYPERCHOLESTEROLEMIA Pure hypercholesterolemia Atopic dermatitis, unspecified type Fibromyalgia Mylagia and myositis, unspecified Gastro-esophageal reflux disease without esophagitis Esophageal reflux [facility]* Diagnosis Acute cough- Primary Acute non-recurrent sinusitis, unspecified location Essential hypertension Unspecified essential hypertension History of ST elevation myocardial infarction (STEMI) Old myocardial infarction Coronary artery disease involving [place] coronary artery of [place] heart with angina pectoris (HCC) S/P angioplasty with stent Other postprocedural status Acute cough documented in this encounter [facility] Diagnosis Acute cough documented in this encounter [facility] Diagnosis Medicare annual wellness visit, subsequent- Primary Routine general medical examination at a health care facility Bilateral lower extremity edema Edema Generalized anxiety disorder Recurrent major depressive disorder, in partial remission Essential hypertension Unspecified essential hypertension Vitamin D deficiency Unspecified vitamin D deficiency S/P angioplasty with stent Other postprocedural status Coronary artery disease involving [place] coronary artery of [place] heart without angina pectoris Fibromyalgia Mylagia and myositis, unspecified Encounter for immunization Need for other specified prophylactic vaccination against single bacterial disease Encounter for long-term current use of medication Pain in right hip Pain in joint, pelvic region and thigh [facility] (current) use of anticoagulants Long-term (current) use of anticoagulants Dermatitis, unspecified documented [facility]* Diagnosis Acute bronchitis, unspecified organism- Primary Wheezing Acute cough Recent bereavement documented in this encounter [facility] Diagnosis Onset Date Resolution Status Admit Date Aortic regurgitation acute September 07, 2024 8:06am History of coronary artery s tent placement acute September 07, 2024 8:06am HTN (hypertension) chronic August 112024 8:06am [facility] Work Phone: Evaluation note* Diagnosis Grief [...] thyroid function study documented in this encounter [facility] course Narrative No data available for this section [facility] Discharge instructionsAdditional Instructions Your workup today reveals no sign of active cardiac damage. Please continue all of your home medications as directed by your doctor and follow-up with your family doctor as well as chin strap cutter for repeat evaluation. Return to the ER should you have any further concerns [facility] Work Phone: Reason for referral (narrative)No reason for referral information 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 No September 19, 2024 3:55am Advance Directives No February 21, 2016 2:52pm Reason for Referral Specialty Diagnoses / Procedures Referred By Contac t Referred To Contact Diagnoses Eczema, unspecified type Nelli Reyes APRN.CNP [address] [place] [address] Referral ID Status Reason Start Date Expiration Date V isits Requested Visits Authorized [id number] Pending Review 11/07/2023 01/06/2024 1 1 Specialty Diagnoses / Procedures Referred By Contac t Referred To Contact Diagnoses Karen Bryan MD [address] [place] [address] Referral ID Status Reason Start Date Expiration Date V isits Requested Visits Authorized [id number] Pending Review 01/01/2024 03/01/2024 1 1 Summary Purpose Family History Relationship Condition Age at Onset Recorded Date/T shirley father Hypertension Unknown History of coronary artery bypass surgery Unknown No Family History Records Found Chief Complaint and Reason for Visit Chief Complaint Admit Date See clinical notes Jadiel (KR approved) Sue grimes 2024 8:06am Reason for Visit Admit Date Aortic regurgitation September 07, 2024 8:0 6am History of coronary artery stent placeme nt September 07, 2024 8:06am HTN (hypertension) September 07, 2024 8:06 am Chief Complaint Admit Date See clinical notes Jadiel (KR approved) Sue ly 2024 8:06am INT LAB September 07, 2024 9:01 am Reason for Visit Admit Date Aortic regurgitation September 07, 2024 8:0 6am JAMIL (dyspnea on exertion) September 07 8:06am Fatigue September 07, 2024 8:06 am History of coronary artery stent placeme nt September 07, 2024 8:06am HTN (hypertension) September 07, 2024 8:06 am Chief Complaint Admit Date See clinical notes Jadiel (KR approved) ly 2024 8:06am INT LAB September 07, 2024 9:01 am chest pain September 19, 2024 3: 53am Chief Complaint Admit Date See clinical notes Jadiel (KR approved) Sue ly 2024 8:06am INT LAB September 07, 2024 9:01 am chest pain September 19, 2024 3: 53am OTHER FORMS OF DYSPNEA September 28, 2024 1:51pm Amb Documentation September 30, 2024 8: 04am Additional Source Comments Source Comments (unrecognize d section and content) In the event this informatio n is protected by the Federal Confidentiality of Alcohol and Drug Abuse Patient Records regulations: The Federal rules restrict any use of the information to criminally investigate or prosecute any alcohol or drug abuse patient.[facility] the event this information is protected by the Federal Confidentiality of Alcohol and Drug Abuse Patient Records regulations: The Federal rules restrict any use of the information to criminally investigate or prosecute any alcohol or drug abuse patient.[facility] the event this information is protected by the Federal Confidentiality of Alcohol and Drug Abuse Patient Records regulations: The Federal rules restrict any use of the information to criminally investigate or prosecute any alcohol or drug abuse patient.[facility] the event this information is protected by the Federal Confidentiality of Alcohol and Drug Abuse Patient Records regulations: The Federal rules restrict any use of the information to criminally investigate or prosecute any alcohol or drug abuse patient.[facility] the event this information is protected by the Federal Confidentiality of Alcohol and Drug Abuse Patient Records regulations: The Federal rules restrict any use of the information to criminally investigate or prosecute any alcohol or drug abuse patient.[facility] the event this information is protected by the Federal Confidentiality of Alcohol and Drug Abuse Patient Records regulations: The Federal rules restrict any use of the information to criminally investigate or prosecute any alcohol or drug abuse patient.[facility] the event this information is protected by the Federal Confidentiality of Alcohol and Drug Abuse Patient Records regulations: The Federal rules restrict any use of the information to criminally investigate or prosecute any alcohol or drug abuse patient.[facility] the event this information is protected by the Federal Confidentiality of Alcohol and Drug Abuse Patient Records regulations: The Federal rules restrict any use of the information to criminally investigate or prosecute any alcohol or drug abuse patient.[facility] the event this information is protected by the Federal Confidentiality of Alcohol and Drug Abuse Patient Records regulations: The Federal rules restrict any use of the information to criminally investigate or prosecute any alcohol or drug abuse patient.[facility] the event this information is protected by the Federal Confidentiality of Alcohol and Drug Abuse Patient Records regulations: The Federal rules restrict any use of the information to criminally investigate or prosecute any alcohol or drug abuse patient.[facility] the event this information is protected by the Federal Confidentiality of Alcohol and Drug Abuse Patient Records regulations: The Federal rules restrict any use of the information to criminally investigate or prosecute any alcohol or drug abuse patient.[facility]In the event this information is protected by the Federal Confidentiality of Alcohol and Drug Abuse Patient Records regulations: The Federal rules restrict any use of the information to criminally investigate or prosecute any alcohol or drug abuse patient.[facility]In the event this information is protected by the Federal Confidentiality of Alcohol and Drug Abuse Patient Records regulations: The Federal rules restrict any use of the information to criminally investigate or prosecute any alcohol or drug abuse patient.[facility] the event this information is protected by the Federal Confidentiality of Alcohol and Drug Abuse Patient Records regulations: The Federal rules restrict any use of the information to criminally investigate or prosecute any alcohol or drug abuse patient.[facility] the event this information is protected by the Federal Confidentiality of Alcohol and Drug Abuse Patient Records regulations: The Federal rules restrict any use of the information to criminally investigate or prosecute any alcohol or drug abuse patient.[facility] the event this information is protected by the Federal Confidentiality of Alcohol and Drug Abuse Patient Records regulations: The Federal rules restrict any use of the information to criminally investigate or prosecute any alcohol or drug abuse patient.[facility] the event this information is protected by the Federal Confidentiality of Alcohol and Drug Abuse Patient Records regulations: The Federal rules restrict any use of the information to criminally investigate or prosecute any alcohol or drug abuse patient.[facility] the event this information is protected by the Federal Confidentiality of Alcohol and Drug Abuse Patient Records regulations: The Federal rules restrict any use of the information to criminally investigate or prosecute any alcohol or drug abuse patient.[facility]In the event this information is protected by the Federal Confidentiality of Alcohol and Drug Abuse Patient Records regulations: The Federal rules restrict any use of the information to criminally investigate or prosecute any alcohol or drug abuse patient.[facility] the event this information is protected by the Federal Confidentiality of Alcohol and Drug Abuse Patient Records regulations: The Federal rules restrict any use of the information to criminally investigate or prosecute any alcohol or drug abuse patient.[facility]In the event this information is protected by the Federal Confidentiality of Alcohol and Drug Abuse Patient Records regulations: The Federal rules restrict any use of the information to criminally investigate or prosecute any alcohol or drug abuse patient.[facility] the event this information is protected by the Federal Confidentiality of Alcohol and Drug Abuse Patient Records regulations: The Federal rules restrict any use of the information to criminally investigate or prosecute any alcohol or drug abuse patient.[facility] the event this information is protected by the Federal Confidentiality of Alcohol and Drug Abuse Patient Records regulations: The Federal rules restrict any use of the information to criminally investigate or prosecute any alcohol or drug abuse patient.[facility]In the event this information is protected by the Federal Confidentiality of Alcohol and Drug Abuse Patient Records regulations: The Federal rules restrict any use of the information to criminally investigate or prosecute any alcohol or drug abuse patient.[facility]In the event this information is protected by the Federal Confidentiality of Alcohol and Drug Abuse Patient Records regulations: The Federal rules restrict any use of the information to criminally investigate or prosecute any alcohol or drug abuse patient.[facility]In the event this information is protected by the Federal Confidentiality of Alcohol and Drug Abuse Patient Records regulations: The Federal rules restrict any use of the information to criminally investigate or prosecute any alcohol or drug abuse patient.[facility]In the event this information is protected by the Federal Confidentiality of Alcohol and Drug Abuse Patient Records regulations: The Federal rules restrict any use of the information to criminally investigate or prosecute any alcohol or drug abuse patient.[facility]In the event this information is protected by the Federal Confidentiality of Alcohol and Drug Abuse Patient Records regulations: The Federal rules restrict any use of the information to criminally investigate or prosecute any alcohol or drug abuse patient.[facility]In the event this information is protected by the Federal Confidentiality of Alcohol and Drug Abuse Patient Records regulations: The Federal rules restrict any use of the information to criminally investigate or prosecute any alcohol or drug abuse patient.[facility]In the event this information is protected by the Federal Confidentiality of Alcohol and Drug Abuse Patient Records regulations: The Federal rules restrict any use of the information to criminally investigate or prosecute any alcohol or drug abuse patient.[facility]In the event this information is protected by the Federal Confidentiality of Alcohol and Drug Abuse Patient Records regulations: The Federal rules restrict any use of the information to criminally investigate or prosecute any alcohol or drug abuse patient.[facility]In the event this information is protected by the Federal Confidentiality of Alcohol and Drug Abuse Patient Records regulations: The Federal rules restrict any use of the information to criminally investigate or prosecute any alcohol or drug abuse patient.[facility]In the event this information is protected by the Federal Confidentiality of Alcohol and Drug Abuse Patient Records regulations: The Federal rules restrict any use of the information to criminally investigate or prosecute any alcohol or drug abuse patient.[facility]In the event this information is protected by the Federal Confidentiality of Alcohol and Drug Abuse Patient Records regulations: The Federal rules restrict any use of the information to criminally investigate or prosecute any alcohol or drug abuse patient.[facility]In the event this information is protected by the Federal Confidentiality of Alcohol and Drug Abuse Patient Records regulations: The Federal rules restrict any use of the information to criminally investigate or prosecute any alcohol or drug abuse patient.[facility]In the event this information is protected by the Federal Confidentiality of Alcohol and Drug Abuse Patient Records regulations: The Federal rules restrict any use of the information to criminally investigate or prosecute any alcohol or drug abuse patient.[facility]In the event this information is protected by the Federal Confidentiality of Alcohol and Drug Abuse Patient Records regulations: The Federal rules restrict any use of the information to criminally investigate or prosecute any alcohol or drug abuse patient.[facility]In the event this information is protected by the Federal Confidentiality of Alcohol and Drug Abuse Patient Records regulations: The Federal rules restrict any use of the information to criminally investigate or prosecute any alcohol or drug abuse patient.[facility] Reason for Visit (unrecogniz ed section [...] Onset Date Comments Transition Of Care 01/21/2024 [facility] 01/19/2024 - Initial outreach Reason Comments Patient [...] Recheck Follow up, review ro bs. depression Reason Onset Date Comments ACM LUCIAN RN 09/20/2024 Chart review per payor request Care Teams (unrecognized sec tion and content) Unishear Operator Relationship Specialty Start Date End Date Karen Resendiz MD [facility] [place] [address] PCP - General 12/01/01 Unishear Operator Relationship Specialty Start Date End Date Karen Resendiz MD [address] [place] [address] PCP - General 12/01/01 Unishear Operator Relationship Specialty Start Date End Date Karen Resendiz MD [facility] [place] [address] PCP - General 12/01/01 Unishear Operator Relationship Specialty Start Date End Date Karen Resendiz MD [address] [place] [address] PCP - General 12/01/01 Unishear Operator Relationship Specialty Start Date End Date Karen Resendiz MD [address] [place] [address] [place] [address] PCP - General 12/01/01 Unishear Operator Relationship Specialty Start Date End Date Karen Resendiz MD [address] [place] [address] PCP - General 12/01/01 Unishear Operator Relationship Specialty Start Date End Date Karen Resendiz MD [address] [place] [address] PCP - General 12/01/01 Unishear Operator Relationship Specialty Start Date End Date Karen Resendiz MD [address] [place] [address] PCP - General 12/01/01 Unishear Operator Relationship Specialty Start Date End Date Karen Resendiz MD [address] [place] [address] PCP - General 12/01/01 Unishear Operator Relationship Specialty Start Date End Date Karen Resendiz MD [address] [place] [address] PCP - General 12/01/01 Unishear Operator Relationship Specialty Start Date End Date Karen Resendiz MD [address] [place] [address] PCP - General 12/01/01 Unishear Operator Relationship Specialty Start Date End Date Karen Resendiz MD [address] [place] [address] PCP - General 12/01/01 Unishear Operator Relationship Specialty Start Date End Date Karen Resendiz MD [address] [place] [address] PCP - General 12/01/01 Unishear Operator Relationship Specialty Start Date End Date Karen Resendiz MD [address] [place] [address] PCP - General 12/01/01 Unishear Operator Relationship Specialty Start Date End Date Karen Resendiz MD [address] [place] [address] PCP - General 12/01/01 Unishear Operator Relationship Specialty Start Date End Date Karen Resendiz MD [address] [place] [address] PCP - General 12/01/01 Unishear Operator Relationship Specialty Start Date End Date Karen Resendiz MD [address] [place] [address] PCP - General 12/01/01 Unishear Operator Relationship Specialty Start Date End Date Karen Resendiz MD [address] [place] [address] PCP - General 12/01/01 Maddie Sahu, [employer].HOUSE SHORER [address] [place] [address] Master Control Operator Internal Medicine 01/19/24 Nelli Reyes, [employer].WESTERN FELT HAT BLOCKER [address] [place] [address] Master Control Operator Internal Medicine 01/19/24 Korina Billy, TOM [address] [place] [address] Primary Care [employer] Glass Blower 01/20/24 Unishear Operator Relationship Specialty Start Date End Date Karen Resendiz MD [address] [place] [address] PCP - General 12/01/01 Maddie Sahu, [employer].HOUSE SHORER [address] [place] [address] Master Control Operator Internal Medicine 01/19/24 Nelli Reyes APRN.WESTERN FELT HAT BLOCKER [address] [place] [address] Master Control Operator Internal Medicine 01/19/24 Korina Billy RN [address] [place] [address] Primary Care [employer] Glass Blower 01/20/24 Unishear Operator Relationship Specialty Start Date End Date Karen Resendiz MD [address] [place] [address] PCP - General 12/01/01 Maddie Sahu APRN.HOUSE SHORER [address] [place] [address] Master Control Operator Internal Medicine 01/19/24 Nelli Reyes APRN.WESTERN FELT HAT BLOCKER [address] [place] [address] Master Control Operator Internal Medicine 01/19/24 Korina Billy RN [address] [place] [address] Primary Care [employer] 01/20/24 02/18/24 Unishear Operator Relationship Specialty Start Date End Date Karen Resendiz MD [address] [place] [address] PCP - General 12/01/01 Maddie Sahu APRN.HOUSE SHORER [address] [place] [address] Master Control Operator Internal Medicine 01/19/24 Nelli Reyes APRN.WESTERN FELT HAT BLOCKER [address] [place] [address] Master Control Operator Internal Medicine 01/19/24 Unishear Operator Relationship Specialty Start Date End Date Karen Resendiz MD [address] [facility] [address] PCP - General 12/01/01 Maddie Sahu, [employer].HOUSE SHORER [address] [place] [address] Master Control Operator Internal Medicine 01/19/24 Nelli Reyes [employer].WESTERN FELT HAT BLOCKER [address] [place] [address] [facility] Internal Medicine 01/19/24 Unishear Operator Relationship Specialty Start Date End Date Karen Resendiz MD [address] [place] [address] PCP - General 12/01/01 Maddie Sahu, [employer].HOUSE SHORER [address] [place] [address] Master Control Operator Internal Medicine 01/19/24 Nelli Reyes [employer].WESTERN [employer]ELT HAT BLOCKER [address] [place] [address] Master Control Operator Internal Medicine 01/19/24 Unishear Operator Relationship Specialty Start Date End Date Karen Resendiz MD [address] [place] [address] PCP - General 12/01/01 Maddie Sahu, [employer].HOUSE SHORER [address] [place] [address] Master Control Operator Internal Medicine 01/19/24 Nelli Reyes APRN.WESTERN FELT HAT BLOCKER [address] [facility] [address] Master Control Operator Internal Medicine 05/04/24 Unishear Operator Relationship Specialty Start Date End Date Karen Resendiz MD [address] [facility], [place] [address] PCP - General 12/01/01 Nelli Reyes APRN.WESTERN FELT HAT BLOCKER [address] [facility] [place] [address] Master Control Operator Internal Medicine 05/04/24 Maddie Sahu APRN.HOUSE SHORER [address] [facility] [place] [address] [facility] 06/30/24 Team Status: Active Member [...] 2024 End: September 07, 2024 Joanne Apple ROTOR CASTING MACHINE SETUP OPERATOR, ROTOR CASTING MACHINE SETUP OPERATOR-C Attending Provider Active Start: September 07, 2024 End: September 07, 2024 Unishear Operator Relationship Specialty Start Date End Date Karen Resendiz MD [address] [facility] [place] [address] PCP - General 12/01/01 Nelli Reyes APRN.WESTERN FELT HAT BLOCKER [address] [facility] [place] [address] [facility] 05/04/24 Maddie Sahu APRN.HOUSE SHORER [address] [facility] [address] [facility] 06/30/24 Team Status: Active Member Role/Relationship Status Dates Dr. Karen Resendiz MD Primary Care Provider Active Team Status: Inactive Member Role/Relationship Status Dates Dr. Karen Resendiz MD Primary Care Provider Active Start: September 07, 2024 End: September 07, 2024 Joanne Apple ROTOR CASTING MACHINE SETUP OPERATOR, ROTOR CASTING MACHINE SETUP OPERATOR-C Attending Provider Active Start: September 07, 2024 End: September 07, 2024 Joanne Apple ROTOR CASTING MACHINE SETUP OPERATOR, ROTOR CASTING MACHINE SETUP OPERATOR-C Referring Provider Active Start: September 07, 2024 End: September 07, 2024 Team Status: Inactive Member Role/Relationship Status Dates Dr. Karen Resendiz MD Primary Care Provider Active Start: September 19, 2024 End: September 19, 2024 Dr. Chetan Nick DO Emergency Provider Active Start: September 19, 2024 End: September 19, 2024 Unishear Operator Relationship Specialty Start Date End Date Karen Resendiz MD [address] [facility] [place] [address] PCP - General 12/01/01 Nelli Reyes APRN.WESTERN FELT HAT BLOCKER [address] [place] [address] [facility] 05/04/24 Maddie Sahu APRN.HOUSE SHORER [address] [facility] [place] [address] [facility] 06/30/24 Team Status: Inactive Member Role/Relationship Status Dates Dr. Karen Resendiz MD Primary Care Provider Active Start: September 19, 2024 End: September 19, 2024 Dr. Chetan Nick DO Attending Provider Active Start: September 19, 2024 End: September 19, 2024 Dr. Chetan Nick DO Emergency Provider Active Start: September 19, 2024 End: September 19, 2024 Team Status: Inactive Member Role/Relationship Status Dates Dr. Karen Resendiz MD Primary Care Provider Active Start: September 28, 2024 End: September 28, 2024 Joanne Apple ROTOR CASTING MACHINE SETUP OPERATOR, ROTOR CASTING MACHINE SETUP OPERATOR-C Attending Provider Active Start: September 28, 2024 End: September 28, 2024 Joanne Apple NP, ROTOR CASTING MACHINE SETUP OPERATOR-C Referring Provider Active Start: September 28, 2024 End: September 28, 2024 Team Status: Active Member Role/Relationship Status Dates Dr. Karen Resendiz MD Primary Care Provider Active Start: September 28, 2024 Dr. Valdemar Kimble MD Attending Provider Active S tart: September 28, 2024 Team Status: Active Member Role/Relationship Status Dates Dr. Karen Resendiz MD Primary Care Provider Active Start: September 30, 2024 Joanne Apple NP, ROTOR CASTING MACHINE SETUP OPERATOR-C Attending Provider Active Start: September 30, 2024 INFORMATION SOURCE (unrecogn ized section and content) DATE CREATED AUTHOR 01/30/2024 [facility] DATE CREATED AUTHOR AUTHOR'S ORGANIZ ATION 09/26/2024 [facility] DATE CREATED AUTHOR AUTHOR'S ORGANIZ ATION 10/24/2024 [facility] Goals (unrecognized section and content) Goals may [...] BE BASED ON THE PRIMARY CLINICAL RECORDS. [employer] provides no warranty or guarantee of the accuracy or completeness of information in this document.
--- NOTE | 2024-10-27 18:11 | STRESSREP ---
Stress Test Report Pharmacologic myocardial perfusion stress test. 84-year-old female with a history of coronary disease and dyspnea. Resting EKG demonstrates normal sinus rhythm with a rate of 60 bpm. Resting blood pressure is 160/70 mmHg. 0.4 mg of regadenoson was infused per usual protocol followed by rapid intravenous saline flush injection. Continuous EKG monitoring was performed. The maximum heart rate was 86 bpm which was 63% of max impacted heart rate the maximum workload was 1 metabolic equivalent. At rest there were no ST or T wave changes noted to suggest ischemia and at peak infusion nonspecific ST changes were noted which did not meet the criteria for ischemia. No clinical angina is noted. The final blood pressure was 134/70 mmHg. Myocardial perfusion protocol. 11 point mCi of technetium 99m sestamibi was injected at rest. 0.4 mg of regadenoson was infused per usual protocol. At peak infusion 35 mCi of technetium 99m sestamibi was injected stress images were obtained stress and rest images were reconstructed and compared in the short axis vertical long and horizontal long axis. Gated images were also obtained. Perfusion SPECT analysis: Review of the stress images demonstrate normal uptake of tracer noted in all areas of the myocardium. The resting images similar demonstrated normal uptake of tracer noted in all areas of the myocardium. No areas of reversibility are noted to suggest ischemia and no previous infarct is noted. Gated SPECT analysis: The gated ejection fraction is 79%. Conclusion: Normal pharmacologic myocardial perfusion stress test. Preserved ejection fraction.
== END | disposition home or self-care (01) ==
PROVIDERS: PCP Internal Medicine; Referring Provider Nurse Practitioner Gerontology; Visit Provider Nurse Practitioner Gerontology
DX: I25.10 Atherosclerotic heart disease of native coronary artery without angina pectoris (principal); R06.09 Other forms of dyspnea; Z95.5 Presence of coronary angioplasty implant and graft; I25.2 Old myocardial infarction
CPT/HCPCS: 78452; 93017; A9500; A4216; J2785

== ENCOUNTER → 2024-12-24 | Outpatient (CLI) | payer MEDICARE, SELFPAY ==
[2024-12-24 17:11] LABS: Anion Gap 11 (5-15); BUN 26 mg/dL (4-19); BUN/Creat Ratio 23.4 RATIO (10-20); Calcium,Total 10.1 mg/dL (7.6-11.0); Carbon Dioxide 23.6 mmol/L (21.0-32.0); Chloride 104 mmol/L (98-108); Glucose 82 mg/dL (70-99); Potassium 4.6 mmol/L (3.3-5.1); Pro- Brain NATRIURETIC PEPTIDE 331 pg/mL (<=1800)
[2024-12-24 17:16] LABS: Hematocrit 42.0 % (37-47); Hemoglobin 13.5 g/dL (12.0-15.0); Immature Granulocytes Count 0.030 X10^3/uL (0.0-0.0); Mean Corp Hgb Conc 32.1 g/dL (32-36); Mean Corpuscular Volume 91.3 fL (81-99); Mean Platelet Vol. 10.3 fl (6.2-12.0); NRBC Flagged by Analyzer 0 % (0-5); Platelet Count 281 K/mm3 (150-450); RBC Distribution Width CV 13.2 % (11.6-14.6); RBC Distribution Width SD 44.5 fl (35.1-43.9); Red Blood Count 4.60 M/mm3 (4.2-5.4); White Blood Count 7.6 K/mm3 (4.4-11.0)
--- OUTSIDE RECORDS SUMMARY | 2024-12-24 17:48 | XMS RPT_ITS | CCD ---
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 Name Role Phone Karen Resendiz MD Primary Care Provider ASTRID TERRAZAS, DR JONES Primary Care Physician Karen Resendiz MD Primary Care Provider Sahu MAKING MACHINE OPERATOR.FORMSTONE FITTER, Maddie Unavailable Haley MAKING MACHINE OPERATOR.ROUNDING MACHINE OPERATOR, Nelli Unavailable Kaushik RN, Korina Unavailable ASTRID TERRAZAS, DR JONES Primary Care Unavailable SATISH TERRAZAS, RODRIGO Admitting Unavailable SATISH TERRAZAS, RODRIGO Attending Unavailable SERVANDO KEANE MD Consulting Unavail able ASTRID TERRAZAS, DR JONES Primary Care Unavailable MALACHI TERRAZAS, DR NIETO Admitting Unavailab naveed LY MD, DR NIETO Attending Unavailab naveed ALMARAZ MD, TONIA Consulting Unavailable Kaushik RN, Korina Unavailable Haley MAKING MACHINE OPERATOR.ROUNDING MACHINE OPERATOR, Nelli Unavailable Sahu MAKING MACHINE OPERATOR.FORMSTONE FITTER, Maddie Unavailable Dr. Karen Resendiz MD Primary Care Provider Dr. Karen Resendiz MD Referring Provider Joanne Ferrari Attending Provider Joanne Ferrari Referring Provider Dr. Chetan Nick DO Emergency Provider Dr. Chetan Nick DO Attending Provider Shyanne TERRAZAS, Dr. Aldrich Attending Provider [phone] Dr. Karen Resendiz MD Primary Care Physician Zechariah MARIA-C, Joanne Attending Physician Dr. Chetan Nick DO Attending Physician Dr. Chetan Nick DO Emergency Department Physic camron Dr. Valdemar Kimble MD Attending Physician Zechariah BUMPER OPERATOR-C, Joanne Nurse Practitioner Talampas, Karen D Primary Care Unavailable Chetan Nick Attending Unavailable Talampas, Karen D Primary Care Unavailable Belal, Farouk Attending Unavailable Belal, Farouk Admitting Unavailable Mejia Shah Attending Unavailable Talampas, Karen D Primary Care Unavailable Talampas, Karen D Primary Care Unavailable Zechariah MARIA, Joanne Consulting Unavailable Zechariah MARIA, Joanne Referring Unavailable Valdemar Kimble Attending Unavailable Talampas, Karen D Primary Care Unavailable Belal, Farouk Attending Unavailable Belal, Farouk Consulting Unavailable Belal, Farouk Admitting Unavailable Vazquez Woodard Attending Unavailable Talampas, Karen D Referring Unavailable Joel Reynolds NP Attending Unavailable Talampas, Karen D Primary Care Unavailable Talampas, Karen D Referring Unavailable Tessie Joyce Attending Unavail able Talampas, Karen D Primary Care Unavailable Talampas, Karen D Primary Care Unavailable Talampas, Karen D Referring Unavailable Zechariah MARIA, Joanne Attending Unavailable Talampas, Karen D Referring Unavailable Kenny Good Attending Unavailable Talampas, Karen D Primary Care Unavailable Talampas, Karen D Primary Care Unavailable Valdemar Kimble Attending Unavailable Talampas, Karen D Primary Care Unavailable Zechariah MARIA, Joanne Attending Unavailable Talampas, Karen D Primary Care Unavailable Zechariah BUMPER OPERATOR, Joanne Attending Unavailable Talampas, Karen D Primary Care Unavailable Zechariah BUMPER OPERATOR, Joanne Attending Unavailable Zechariah BUMPER OPERATOR, Joanne Referring Unavailable Talampas, Karen D Primary Care Unavailable Zechariah BUMPER OPERATOR, Joanne Referring Unavailable Zechariah BUMPER OPERATOR, Joanne Attending Unavailable Talampas, Karen D Primary Care Unavailable Zechariah BUMPER OPERATOR, Joanne Referring Unavailable Zechariah BUMPER OPERATOR, Joanne Attending Unavailable TALAMPAS, KAREN D Attending Unavailable TALAMPAS, KAREN D Primary Care Unavailable NELLI REYES Attending Unavailable TALAMPAS, KAREN D Primary Care Unavailable ALEXEI SKELTON Attending Unavailable TALAMPAS, KAREN D Primary Care Unavailable ALEXEI SKELTON Referring Unavailable TALAMPAS, KAREN D Primary Care [...] Unavailable TALAMPAS, KAREN D Primary Care Unavailable DARLING DOMÍNGUEZ Attending Unavailable TALAMPAS, KAREN D Referring Unavailable TALAMPAS, KAREN D Primary Care Unavailable TALAMPAS, KAREN D Attending Unavailable TALAMPAS, KAREN D Primary Care Unavailable TALAMPAS, KAREN D Attending Unavailable TALAMPAS, KAREN D Primary Care Unavailable TALAMPAS, KAREN D Referring Unavailable TALAMPAS, KAREN D Primary Care Unavailable Allergies Allergy Classification Reported Allergen(s) Allergy Type Date of Onset Reaction(s) Facility (20 sources) Amitriptyline; Translations: [AMITRIPTYLINE] Drug Allergy 3 Other: See Comments [facility] Work Phone: (20 sources) Codeine; Translations: [CODEINE] Drug Allergy 5 Chest tightness [facility] Work Phone: (20 sources) Sulfonamides (Antibiotic); Translations: [SULFA (SULFONAMIDE ANTIBIOTICS)] Drug Allergy 6 Hives, Swelling, Itching [facility] Work Phone: (20 sources) traZODone; Translations: [TRAZODONE] Drug Allergy 5 Other [facility] Work Phone: Comment on above: HALLUCINATIONS (2 sources) Sulfonamide; Translations: [sulfa drugs] Drug allergy [facility] (1 source) Amitriptyline Drug Allergy 5 [facility] Repository (1 source) Codeine Drug Allergy 5 [facility] Repository (1 source) traZODone Drug Allergy 5 [facility] Repository Medications Current Medications Medication Drug Class(es) Dates Sig (Normalized) Sig (Original) [id number] 200 actuat albuterol 0.09 mg/actuat metered dose [...] take 1 tablet by mouth once daily Start: 01-26-2024 End: 03-12-2024 take 2 tablets [...] aspirin 81 mg delayed release oral tablet (17 sources) Platelet Aggregation Inhibitor, Nonsteroidal Anti-inflammatory Drug Start: 01-20-2024 End: 07-13-2025 take 1 tablet by mouth once daily clopidogrel 75 mg oral tablet (18 sources) P2Y12 Platelet Inhibitor Start: 01-20-2024 End: 04-14-2025 take 1 tablet by mouth once daily COMPOUNDED PRESCRIPTION (20 sources) Start: 03-31-2013 COMPOUNDED PRESCRIPTION Indications: Myalgia and myositis, unspecified , Generalized osteoarthrosis, unspecified site Massage therapy Dx: Fibromyalgia, Arthritis 1 Each 24 03/31/2013 Active Comment on above: Massage therapy [...] g 1 11/07/2023 Active dorzolamide 20 mg/ml ophthal nacho solution (9 sources) Carbonic Anhydrase Inhibitor Start: 01-24-2024 Start: 01-18-2024 take 1 dose into the [...] take 1 capsule by mouth once daily Comment on above: Take [address] [facility] once daily. estradiol 0.1 mg/ml vaginal [...] by mouth three times daily at mealtime Start: 12-05-2022 End: 09-07-2024 take 2 capsules [...] mononitrate 30 mg extended release oral tablet (17 sources) Nitrate Vasodilator Start: 01-26-2024 End: 05-11-2024 take 1 tablet by mouth once daily, then take 1 tablet by mouth every twenty-four hours losartan potassium 50 mg oral tablet (20 sources) Angiotensin 2 Receptor Janay Start: 02-20-2024 take 1 tablet by mouth once daily Start: 01-25-2024 End: 01-27-2024 take 1 tablet [...] capsule (20 sources) Proton Pump Inhibitor Start: take 1 dose by mouth once daily omeprazole Dose : 40 mg =, Oral, qDay, 0 Refill(s) Start Date: 01/18/24 Status: Ordered Start: 08-23-2013 End: 03-15-2024 take 1 capsule by mouth once daily Comment on above: Take [address] [facility] once daily. rosuvastatin calcium 20 mg oral tablet (18 sources) HMG-CoA Reductase Inhibitor Start: 01-20-2024 End: 04-14-2025 take 1 tablet by mouth at bedtime zaleplon 5 mg oral capsule (2 sources) gamma-Aminobutyric Acid A Receptor Agonist Start: 11-07-2023 End: 12-07-2023 take 1 capsule by mouth once daily [...] oral capsule (17 sources) Vitamin D Start: 022 End: take 1 capsule by mouth once daily Cholecalciferol, Vitamin D3, 50 mcg (2,000 unit) cap Take 1 capsule by mouth once daily. 07/18/2021 11/07/2023 Discontinued Comment on above: Take 1 capsule by mo [facility] once daily. clobetasol propionate 0.0005 mg/mg topical ointment (19 sources) Corticosteroid Start: 023 End: clobetasol (TEMOVATE) 0.05 % ointment Actually gets compounded RX 0.07% through [facility] from INK JET OPERATOR to use twice weekly 11/02/2022 03/12/2024 Discontinued Comment on above: Actually gets compou nded RX 0.07% through [facility] from INK JET OPERATOR to use twice weekly clonazePAM 1 mg oral tablet (13 sources) Benzodiazepine Start: 014 End: take 1 tablet by mouth at bedtime Clonazepam (Klonopin) 1 MG tablet Discontinued 1 mg PO AT BEDTIME August 23, 2013 12:00am January 17, 2024 8:59pm Comment on above: Take 1 tablet by [place] daily at bedtime for 180 days. Do [...] tablet (2 sources) Azole Antifungal Start: End: take 1 tablet by mouth once fluconazole (DIFLUCAN) 150 mg tablet Indications: Acute non-recurrent sinusitis, unspecified location Take 1 tablet by mouth one time only for 1 dose. 1 tablet 03/12/2024 03/12/2024 Inhalational Spacing Device (1 source) Start: 5 End: Inhalational Spacing Device 1 device one time only for 1 dose. 1 each 06/30/2024 06/30/2024 Lactobacillus acidophilus (18 sources) End: 09-27-202 4 LACTOBACILLUS ACIDOPHILUS (PROBIOTIC ORAL) Take by mouth. 11/07/2023 Discontinued LACTOBACILLUS AC IDOPHILUS (PROBIOTIC ORAL) Take by mouth. 0 Active Comment on above: Take by mouth. lisinopril 2.5 mg oral tablet (5 sources) Angiotensin Converting Enzyme Inhibitor Start: 4 [...] take 1 tablet by mouth once daily Comment on above: Take 1 tablet by [place] once daily. nystatin [id number] unt/ml topical cream (20 sources) Polyene Antifungal [...] mg by mouth twice daily. triamcinolone acetonide 0.55600 mg/mg topical ointment (20 sources) Corticosteroid Start: 01-16-20 End: 09-27-20 24 triamcinolone acetonide (KENALOG) 0.1 % cream Indications: [...] Problem Date Documented Da te Episodic/Chronic Acute myocardial infarction (7 sources) Non-ST elevation (NSTEMI) myocardial infarction; Translations: [Myocardial infarction] Onset: 5 Chronic Adjustment disorders (3 sources) Grief finding; Translations: [Adjustment disorder, unspecified] [...] Coronary atherosclerosis; Translations: [Atherosclerotic heart disease of [place] coronary artery without angina pectoris] Onset: 4 Chronic Coronary atherosclerosis and other heart disease (1 source) Presence of coronary angioplasty implant and graft; Translations: [Presence of coronary angioplasty implant and graft] Onset: 5 Episodic Disorders of lipid metabolism (20 sources) [...] Onset: 6 07-13-2015 Chronic Heart valve disorders (10 sources) Aortic valve regurgitation; Translations: [Nonrheumatic aortic (valve) insufficiency] 02-20-2024 Chronic Hypertension with complications and secondary hypertension (6 sources) Hypertensive emergency; Translations: [Hypertensive emergency] Onset: 4 01-18-2024 Chronic Immunizations and screening for infectious disease (3 sources) Needs influenza immunization; Translations: [Encounter for immunization] 11-02-2022 Episodic Inflammatory diseases of female pelvic organs (1 source) Chronic vaginitis; Translations: [Subacute and chronic vaginitis] Episodic Malaise and fatigue (9 sources) Fatigue; Translations: [Other fatigue] Onset: 5 09-09-2024 Episodic Menopausal disorders (1 source) Atrophy of vagina; Translations: [Postmenopausal atrophic vaginitis] 11-02-2022 Chronic Miscellaneous mental health disorders (1 source) Psychophysiologic insomnia; Translations: [Psychophysiological insomnia] Onset: 5 Chronic Mood disorders (20 sources) Recurrent major depression in partial remission; Translations: [Major depressive disorder, recurrent, in partial remission] Onset: 8 Chronic Nonspecific chest pain (12 sources) Cardiac chest pain; Translations: [Chest pain] Onset: 5 01-18-2024 Episodic Nutritional deficiencies (20 sources) Vitamin D deficiency; Translations: [Vitamin D deficiency, unspecified] Onset: 7 07-16-2016 Chronic Osteoarthritis (20 sources) Degenerative joint disease involving multiple joints; Translations: [Polyosteoarthritis, unspecified] 12-13-2014 Chronic Other aftercare (1 source) Patient encounter status; Translations: [Other care home (current) drug therapy] 05-07-2023 Episodic Other aftercare (1 source) Long-term current use of drug therapy; Translations: [Other 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 supervisor (current) drug therapy] 05-11-2024 Episodic Other aftercare (1 source) Long-term current use of anticoagulant; Translations: [director long term care (current) use of anticoagulants] 05-11-2024 Episodic Other aftercare (1 source) Other 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 supervisor (current) drug therapy; Translations: [Encounter for long-term current use of medication] Onset: 5 Episodic Other bone disease and musculoskeletal deformities [...] stent] Onset: 4 Chronic Other circulatory disease (5 sources) H/O: heart disorder; Translations: [Personal history of other diseases of the circulatory system] 02-02-2024 Episodic Other congenital anomalies (1 source) Pectus excavatum; Translations: [Pectus excavatum] Onset: 5 Chronic Other connective tissue disease (20 sources) Fibromyalgia; [...] injuries and conditions due to external causes (5 sources) Closed injury of head; Translations: [Unspecified injury of head, initial encounter] 05-31-2020 Episodic Other lower respiratory disease (3 sources) Cough; Translations: [Acute cough] 03-12-2024 Episodic Other lower respiratory disease (1 source) Wheezing; Translations: [Wheezing] 06-30-2024 Episodic Other lower respiratory disease (9 sources) Dyspnea on exertion; Translations: [Other forms of dyspnea] 09-07-2024 Episodic Other lower respiratory disease (3 sources) Other forms of dyspnea; Translations: [Other forms of dyspnea] Onset: Episodic Other lower respiratory disease (1 source) Other disorders of lung; Translations: [Restrictive lung disease] Onset: Episodic Other lower respiratory disease (1 source) Personal history of other diseases of the respiratory system; Translations: [History of acute bronchitis] Onset: Episodic Other nervous system disorders (1 source) Chronic pain; Translations: [Other chronic pain] Chronic Other non-traumatic joint disorders (1 source) Hip pain; Translations: [Pain in right hip] 05-11-2024 Episodic Other nutritional; endocrine; and metabolic disorders (1 source) Unintentional weight loss; Translations: [Abnormal weight loss] 09-08-2024 Episodic Other screening for suspected conditions (not mental disorders or infectious disease) (8 sources) Electrocardiogram abnormal; Translations: [Abnormal electrocardiogram [ECG] [EKG]] Onset: 5 01-18-2024 Episodic Other skin disorders (20 sources) Lichen sclerosus et atrophicus; 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 Other upper respiratory infections (1 source) Acute sinusitis; Translations: [Acute sinusitis, unspecified] 03-12-2024 Episodic Pleurisy; pneumothorax; pulmonary collapse (1 source) Atelectasis; Translations: [Linear atelectasis] Onset: Episodic Residual codes; unclassified (1 source) Insomnia; Translations: [Other insomnia] 11-07-2023 Chronic Residual codes; unclassified (1 source) Bilateral lower limb edema; Translations: [Localized edema] 05-11-2024 Episodic Residual codes; unclassified (1 source) Localized edema; Translations: [Bilateral leg edema] Onset: Episodic Superficial injury; contusion (10 sources) Contusion of eyeball and orbital tissues, left eye, initial encounter; Translations: [Periorbital contusion of left eye] 05-31-2020 Episodic Unclassified (1 source) Acute cough; Translations: [Acute cough] Onset: Past or Other Problems Problem Classification Problem Date Documented Da te Episodic/Chronic Acute bronchitis (2 sources) Acute bronchitis; Translations: [Acute bronchitis, unspecified] Onset: 06-30-2024 06-30-2024 Episodic Diabetes mellitus without complication (2 sources) Impaired fasting glycemia; Translations: [Impaired fasting glucose] Onset: 09-08-2024 09-08-2024 Episodic Miscellaneous mental health disorders (2 sources) Acute insomnia; Translations: [Adjustment insomnia] Onset: 10-16-2004 09-08-2024 Episodic Other connective tissue disease (1 source) Fibromyalgia; Translations: [Fibromyalgia] Onset: 04-14-2015 Episodic Other lower respiratory disease (1 source) Wheezing; Translations: [Wheezing] Onset: 06-30-2024 Episodic Other nutritional; endocrine; and metabolic disorders (1 source) Abnormal weight loss; Translations: [Unintentional weight loss] Onset: 09-08-2024 Episodic Residual codes; unclassified (20 sources) Insomnia; Translations: [Insomnia, unspecified] Onset: 10-16-2004 10-16-2004 Episodic Results Test Name Value Interpretation Reference Range Facility [facility] 12-21-2024 CNOV Office Visit (PULMWS ) -- KALINA RUDD ([id number]) 1940 F CHT Date Time Provider Department 12/21/24 3:15 PM DARLING DOMÍNGUEZ PULMWS During your visit today, we recorded the following information about you: Pulse Respiration Blood pressure 51/minute 16/minute 96/64 Darling Domínguez MD 12/21/2024 3:24 PM Signed . Respiratory Ward Note Patient name: Kalina Rudd PCP: Karen Resendiz MD Referring Physician: same Recording using Sonoma software for draft documentation of the visit was discussed with the patient/authorized bilingual sales representative; all questions welcomed and answered. Patient/authorized bilingual sales representative agreed to proceed Consultation requested by Dr. Resendiz for an opinion regarding JAMIL, restriction. My final recommendations will be communicated back to the requesting physician by way of shared Medical record or letter to requesting physician via US mail. CC: shortness of breath HPI: Kalina Rudd 84 year old female never smoker with PMH significant for CAD s/p HI, HTN, anxiety and depression, osteoporosis, being referred for evaluation of shortness of breath and restriction on PFTs. Cardiac evaluation normal. Kalina reports progressive dyspnea on exertion that she first noticed after her in June. She does not recall being this short of breath prior to that time. She experiences shortness of breath with exertion, such as doing too much work, going to more than one store, or walking from a parking lot to an office. The dyspnea improves with rest, and she reports that recovery does not take long. She denies significant cough, chest tightness, or palpitation. She has no prior pulmonary issues, ie, asthma, recurrent bronchitis, pneumonia. No wheezing, mucus production, chest tightness. She has an albuterol inhaler that was prescribed when she had bronchitis, but she is not currently using it. She reports that her niece encouraged her to seek evaluation for her shortness of breath after noticing how out of breath she became walking from a parking lot to an office. She reports weight loss of 30 pounds a couple of years ago, but has since regained weight and is now above her desired weight. She reports poor sleep, typically not falling asleep until around 0400, waking around 0900, and then going back to sleep until around 1400. No snoring. DATA: SERVICE DATE: 11/18/2024 SERVICE TIME: 2:01 PM Oral Exhaled Nitric Oxide measurement: 6.0 (ppb) PFT 11/2024: Moderate restriction with reduction in diffusion that corrects for restriction Labs: No anemia CO2 24 Imaging / Diagnostic Studies: DATE OF EXAM: Mar 12 2024 12:38PM WOX [id number] - XR CHEST 2V FRONTAL/LAT / PROCEDURE REASON: Acute cough CLINICAL HISTORY: Acute cough MQ: [id number] EXAM DATE/TIME: 03/12/2024 12:38 PM COMPARISON: 08/22/2010 RESULT: Lines, tubes, and devices: None. Lungs and pleura: No consolidation. No lung mass. No pleural effusion. No pneumothorax. Minimal stable linear fibrosis on the right Cardiomediastinal silhouette: Normal cardiomediastinal silhouette. Bones and soft tissues: Multilevel degenerative change. CXR notable for mild kyphosis and mild pectus excavatum NM Stress test [facility] 10/2024: Normal Echo: Grade [address] today: PAST MEDICAL HISTORY Diagnosis Date Dysthymic disorder Depression (non-psychotic) Essential hypertension, benign Generalized anxiety disorder Anxiety, Generalized Generalized osteoarthrosis, unspecified site Lichen sclerosus Myalgia and myositis, unspecified OSTEOPOROSIS NOS Osteoporosis, unspecified STEMI (ST elevation myocardial infarction) ([facility]) 01/19/2024 ALLERGIES Allergen Reactions Amitriptyline Other: See Comments Could not urinate Codeine chest pain Sulfa (Sulfonamide * Hives, Swelling, Itching Trazodone vivid dreams omeprazole (PRILOSEC) 40 mg capsule Take 1 capsule by mouth once daily. losartan (COZAAR) 50 mg tablet Take 1 tablet by mouth once daily. mirtazapine (REMERON) 15 mg tablet Take 1.5 tablets by mouth daily at bedtime. metoprolol succinate ER (TOPROL XL) 50 mg 24 hr tablet Take 1 tablet by mouth once daily. amLODIPine (NORVASC) 10 mg tablet Take 1 tablet by mouth once daily. [facility]. rosuvastatin (CRESTOR) 20 mg tablet Take 1 tablet by mouth daily at bedtime. clopidogrel (PLAVIX) 75 mg tablet Take 1 tablet by mouth once daily. isosorbide mononitrate ER (IMDUR) 30 mg 24 hr tablet Take 1 tablet by mouth once daily. Before a meal DULoxetine (CYMBALTA) 60 mg capsule Take 1 capsule by mouth once daily. gabapentin (NEURONTIN) 300 mg capsule Take 1 capsule by mouth three times a day. aspirin, enteric coated (ASPIRIN, ENTERIC COATED) 81 mg EC tablet Take 1 tablet by mouth every afternoon. crisaborole 2 % Apply to (more content not included)... 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 No contraindications or sensitivities were noted. Meds taken: /hours before testing. 4 puffs Albuterol (360 mcg) delivered by MDI via holding chamber. HR pre = /min, HR post = /min. Current ATS/ERS acceptability and repeatability standards for DLCO met with 2 acceptable maneuvers. DLCO is hemoglobin corrected. Hemoglobin obtained from [facility] on 11/04/24. Lung Volumes are repeatable x2. PRE-BRONCHODILATOR: Current ATS/ERS acceptability and repeatability standards for spirometry met. Start of test and EOFE criteria met. POST-BRONCHODILATOR: The two largest FVCs were repeatable. The two largest FEV1s were repeatable. Extrapolated volume greater than ATS/ERS allows; FEV1 may not be valid. IMPRESSION: Spirometry indicates no obstruction. The reduced FVC could indicate restriction, recommend lung volumes for definitive determination. Negative bronchodilator response. Decrease in TLC indicates restriction. The diffusion capacity (corrected for hemoglobin) is normal. The kCO (DLCO/VA) reflects a normal transfer/diffusion of CO from the alveolar regions to the blood. Clinical correlation recommended. Electronically Signed On 11-19-2024 08:53:08 EDT by Darling Domínguez MD ID: [id number] Name: KALINA RUDD Race: White Ht: 60.00 in Wt: 145.00 lbs Age: 84 Gender: Female : 1940 Dx: Other forms of dyspnea Smoking Hx: Non-smoker Doctor: KAREN RESENDIZ Test Date: 11/18/2024 Site: [facility] Tech: Manjinder Keen PRE-BRONCH POST-BRONCH Romeo LLN Pred ULN %Pred ZScore Romeo %Pred %Chg ZScore SPIROMETRY FVC 1.65 1.43 2.09 2.78 78 -1.10 1.57 75 -3 -1.28 FEV1 1.12 1.07 1.60 2.09 69 -1.50 1.12 70 0 -1.49 FEV1/FVC 0.68 0.64 0.78 0.90 86 -1.25 0.72 91 5 -0.85 FEFMax 3.10 2.25 3.75 5.26 82 -0.72 3.55 94 14 -0.22 FEF50 0.98 0.82 2.43 4.04 40 -1.48 0.83 34 -15 -1.64 FIF50 1.54 2.24 46 FEF50/FIF50 0.64 90-100 0.37 -42 FIVC 1.44 1.55 7 [id number] 0.55 0.52 1.31 2.54 41 -1.58 0.50 38 -8 -1.71 ExpiredTime 8.24 7.57 -8 TimeToFEFMax 0.15 0.11 -26 VAHID 0.09 0.09 0 VolExtrap% 5 5 4 LUNG VOLUMES FRC(Pleth) 1.79 1.72 2.41 3.28 74 -1.46 ERV 0.41 0.70 58 RV(Pleth) 1.34 1.09 1.90 2.97 70 -1.08 SVC 1.60 1.43 2.09 2.78 76 -1.21 IC 1.20 1.40 85 TLC(Pleth) 2.81 3.26 4.21 5.29 66 -2.53 RV/TLC(Pleth) 48 31 46 61 104 0.24 LUNG DIFFUSION DLCOunc 10.10 11.92 16.26 21.69 62 -2.48 DLCOStdPB 9.98 11.92 16.26 21.69 61 -2.53 DLCORefHb 9.98 15.62 63 VA 2.87 3.01 3.82 4.73 75 -1.94 Kco 3.48 3.17 4.22 5.42 82 -1.14 Hgb 12.20 12-18 Comments: Medications and Allergies were reviewed for possible drug interactions per policy. No contraindications or sensitivities were noted. Meds taken: /hours before testing. 4 puffs Albuterol (360 mcg) delivered by MDI via holding chamber. HR pre = /min, HR post = /min. Current ATS/ERS acceptability and repeatability standards for DLCO met with 2 acceptable maneuvers. DLCO is hemoglobin corrected. Hemoglobin obtained from [facility] on 11/04/24. Lung Volumes are repeatable x2. PRE-BRONCHODILATOR: Current ATS/ERS acceptability and repeatability standards for spirometry met. Start of test and EOFE criteria met. POST-BRONCHODILATOR: The two largest FVCs were repeatable. The two largest FEV1s were repeatable. Extrapolated volume greater than ATS/ERS allows; FEV1 may not be valid. Normal [facility] LUNG VOLUMESon 11-18-[address] [facility] [address] 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 No contraindications or sensitivities were noted. Meds taken: /hours before testing. 4 puffs Albuterol (360 mcg) delivered by MDI via holding chamber. HR pre = /min, HR post = /min. Current ATS/ERS acceptability and repeatability standards for DLCO met with 2 acceptable maneuvers. DLCO is hemoglobin corrected. Hemoglobin obtained from [facility] on 11/04/24. Lung Volumes are repeatable x2. PRE-BRONCHODILATOR: Current ATS/ERS acceptability and repeatability standards for spirometry met. Start of test and EOFE criteria met. POST-BRONCHODILATOR: The two largest FVCs were repeatable. The two largest FEV1s were repeatable. Extrapolated volume greater than ATS/ERS allows; FEV1 may not be valid. IMPRESSION: Spirometry indicates no obstruction. The reduced FVC could indicate restriction, recommend lung volumes for definitive determination. Negative bronchodilator response. Decrease in TLC indicates restriction. The diffusion capacity (corrected for hemoglobin) is normal. The kCO (DLCO/VA) reflects a normal transfer/diffusion of CO from the alveolar regions to the blood. Clinical correlation recommended. Electronically Signed On 11-19-2024 08:53:08 EDT by Darling Domínguez MD ID: [id number] Name: KALINA RUDD Race: White Ht: 60.00 in Wt: 145.00 lbs Age: 84 Gender: Female : 1940 Dx: Other forms of dyspnea Smoking Hx: Non-smoker Doctor: KAREN RESENDIZ Test Date: 11/18/2024 Site: Tech: Manjinder Keen PRE-BRONCH POST-BRONCH Romeo LLN Pred ULN %Pred ZScore Romeo %Pred %Chg ZScore SPIROMETRY FVC 1.65 1.43 2.09 2.78 78 -1.10 1.57 75 -3 -1.28 FEV1 1.12 1.07 1.60 2.09 69 -1.50 1.12 70 0 -1.49 FEV1/FVC 0.68 0.64 0.78 0.90 86 -1.25 0.72 91 5 -0.85 FEFMax 3.10 2.25 3.75 5.26 82 -0.72 3.55 94 14 -0.22 FEF50 0.98 0.82 2.43 4.04 40 -1.48 0.83 34 -15 -1.64 FIF50 1.54 2.24 46 FEF50/FIF50 0.64 90-100 0.37 -42 FIVC 1.44 1.55 7 CMP30-39 0.55 0.52 1.31 2.54 41 -1.58 0.50 38 -8 -1.71 ExpiredTime 8.24 7.57 -8 TimeToFEFMax 0.15 0.11 -26 VAHID 0.09 0.09 0 VolExtrap% 5 5 4 LUNG VOLUMES FRC(Pleth) 1.79 1.72 2.41 3.28 74 -1.46 ERV 0.41 0.70 58 RV(Pleth) 1.34 1.09 1.90 2.97 70 -1.08 SVC 1.60 1.43 2.09 2.78 76 -1.21 IC 1.20 1.40 85 TLC(Pleth) 2.81 3.26 4.21 5.29 66 -2.53 RV/TLC(Pleth) 48 31 46 61 104 0.24 LUNG DIFFUSION DLCOunc 10.10 11.92 16.26 21.69 62 -2.48 DLCOStdPB 9.98 11.92 16.26 21.69 61 -2.53 DLCORefHb 9.98 15.62 63 VA 2.87 3.01 3.82 4.73 75 -1.94 Kco 3.48 3.17 4.22 5.42 82 -1.14 Hgb 12.20 12-18 Comments: Medications and Allergies were reviewed for possible drug interactions per policy. No contraindications or sensitivities were noted. Meds taken: /hours before testing. 4 puffs Albuterol (360 mcg) delivered by MDI via holding chamber. HR pre = /min, HR post = /min. Current ATS/ERS acceptability and repeatability standards for DLCO met with 2 acceptable maneuvers. DLCO is hemoglobin corrected. Hemoglobin obtained from [facility] on 11/04/24. Lung Volumes are repeatable x2. PRE-BRONCHODILATOR: Current ATS/ERS acceptability and repeatability standards for spirometry met. Start of test and EOFE criteria met. POST-BRONCHODILATOR: The two largest FVCs were repeatable. The two largest FEV1s were repeatable. Extrapolated volume greater than ATS/ERS allows; FEV1 may not be valid. FVC_PRE (L) : 1.65 L FVC_POST (L) : 1.57 L FVC_PRED (L) : 2.09 L FVC_LLN (L) : 1.43 L FVC_ULN (L) : 2.78 L FEV1_PRE (L) : 1.12 L FEV1_POST (L) : 1.12 L FEV1_PRED (L) : 1.60 L FEV1_LLN (L) : 1.07 L FEV1_ULN (L) : 2.09 L FEV1/FVC_PRE (%) : 68 % FEV1/FVC_POST (%) : 72 % FEV1/FVC_PRED (%) : 78 % FEV1/FVC_LLN (%) : 64 % YWF56_AEE (L/S) : 2.66 L/S TUW99_HTLP (L/S) : 3.20 L/S OYD86_DGR (L/S) : 0.14 L/S OBH55_LGSL (L/S) : 0.15 L/S EEV34_ASJB (L/S) : 0.26 L/S DUV92_AMG (L/S) : 0.09 L/S YPV18_ZBJ (L/S) : 0.84 L/S PRJ37-35%_PRE (L/S) : 0.55 L/S ZTY18-02%_POST (L/S) : 0.50 L/S OLU33-76%_PRED (L/S) : 1.31 L/S RJR29-83%_LLN (L/S) : 0.52 L/S PEF_PRE (L/S) : 3.10 L/S PEF_POST (L/S) : 3.55 L/S PEFMAX_LLN (L/S) : 2.25 L/S PEFMAX_ULN (L/S) : 5.26 L/S VC BOX (L) : 1.60 L SVC_PRED (L) : 2.09 L/S SVC_LLN (L) : 1.43 L/S SVC_ULN (L/S) : 2.78 L/S IC BOX (L) : 1.20 L IC_PRED (L) : 1.40 L/S ERV BOX (L) : 0.41 L ERV_PREDICTED (L) : 0.70 L/S DLCO (ML/MIN/MMHG) : 10.10 ml/min/mmHg DLCO_PRED (ML/MIN/MMHG) : 16.26 ml/min/mmHg DLCO_LLN(ML/MIN/MMHG) : 11.92 ml/min/mmHg DLCO_ULN (ML/MIN/MMHG) : 21.69 ml/min/mmHg FET_PRE (S) : 8.24 S FET_POST (S) : 7.57 S (more content not included)... Normal [facility] SPIROMETRY WITH DILATOR IF O BSTRUCTEDon 11-18-2024 SPIROMETRY WITH DILATOR IF OBSTRUCTED [facility] [address] 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 No contraindications or sensitivities were noted. Meds taken: /hours before testing. 4 puffs Albuterol (360 mcg) delivered by MDI via holding chamber. HR pre = /min, HR post = /min. Current ATS/ERS acceptability and repeatability standards for DLCO met with 2 acceptable maneuvers. DLCO is hemoglobin corrected. Hemoglobin obtained from [facility] on 11/04/24. Lung Volumes are repeatable x2. PRE-BRONCHODILATOR: Current ATS/ERS acceptability and repeatability standards for spirometry met. Start of test and EOFE criteria met. POST-BRONCHODILATOR: The two largest FVCs were repeatable. The two largest FEV1s were repeatable. Extrapolated volume greater than ATS/ERS allows; FEV1 may not be valid. IMPRESSION: Spirometry indicates no obstruction. The reduced FVC could indicate restriction, recommend lung volumes for definitive determination. Negative bronchodilator response. Decrease in TLC indicates restriction. The diffusion capacity (corrected for hemoglobin) is normal. The kCO (DLCO/VA) reflects a normal transfer/diffusion of CO from the alveolar regions to the blood. Clinical correlation recommended. Electronically Signed On 11-19-2024 08:53:08 EDT by Darling Domínguez MD ID: [id number] Name: KALINA RUDD Race: White Ht: 60.00 in Wt: 145.00 lbs Age: 84 Gender: Female : 1940 Dx: Other forms of dyspnea Smoking Hx: Non-smoker Doctor: KAREN RESENDIZ Test Date: 11/18/2024 Site: Tech: Manjinder Keen PRE-BRONCH POST-BRONCH Romeo LLN Pred ULN %Pred ZScore Romeo %Pred %Chg ZScore SPIROMETRY FVC 1.65 1.43 2.09 2.78 78 -1.10 1.57 75 -3 -1.28 FEV1 1.12 1.07 1.60 2.09 69 -1.50 1.12 70 0 -1.49 FEV1/FVC 0.68 0.64 0.78 0.90 86 -1.25 0.72 91 5 -0.85 FEFMax 3.10 2.25 3.75 5.26 82 -0.72 3.55 94 14 -0.22 FEF50 0.98 0.82 2.43 4.04 40 -1.48 0.83 34 -15 -1.64 FIF50 1.54 2.24 46 FEF50/FIF50 0.64 90-100 0.37 -42 FIVC 1.44 1.55 7 LTE30-20 0.55 0.52 1.31 2.54 41 -1.58 0.50 38 -8 -1.71 ExpiredTime 8.24 7.57 -8 TimeToFEFMax 0.15 0.11 -26 VAHID 0.09 0.09 0 VolExtrap% 5 5 4 LUNG VOLUMES FRC(Pleth) 1.79 1.72 2.41 3.28 74 -1.46 ERV 0.41 0.70 58 RV(Pleth) 1.34 1.09 1.90 2.97 70 -1.08 SVC 1.60 1.43 2.09 2.78 76 -1.21 IC 1.20 1.40 85 TLC(Pleth) 2.81 3.26 4.21 5.29 66 -2.53 RV/TLC(Pleth) 48 31 46 61 104 0.24 LUNG DIFFUSION DLCOunc 10.10 11.92 16.26 21.69 62 -2.48 DLCOStdPB 9.98 11.92 16.26 21.69 61 -2.53 DLCORefHb 9.98 15.62 63 VA 2.87 3.01 3.82 4.73 75 -1.94 Kco 3.48 3.17 4.22 5.42 82 -1.14 Hgb 12.20 12-18 Comments: Medications and Allergies were reviewed for possible drug interactions per policy. No contraindications or sensitivities were noted. Meds taken: /hours before testing. 4 puffs Albuterol (360 mcg) delivered by MDI via holding chamber. HR pre = /min, HR post = /min. Current ATS/ERS acceptability and repeatability standards for DLCO met with 2 acceptable maneuvers. DLCO is hemoglobin corrected. Hemoglobin obtained from [facility] on 11/04/24. Lung Volumes are repeatable x2. PRE-BRONCHODILATOR: Current ATS/ERS acceptability and repeatability standards for spirometry met. Start of test and EOFE criteria met. POST-BRONCHODILATOR: The two largest FVCs were repeatable. The two largest FEV1s were repeatable. Extrapolated volume greater than ATS/ERS allows; FEV1 may not be valid. Normal [facility] CNOVon 11-11-2024 CNOV Office Visit (INTMWS ) -- KALINA RUDD ([id number]) 1940 F T Date Time Provider Department 11/11/24 11:00 AM KAREN RESENDIZ INTMWS During your visit today, we recorded the following information about you: Pulse Respiration Blood pressure Weight 70/minute 24/minute 106/54 65.2 kg Karen Resendiz MD 12/02/2024 10:28 PM Signed Subjective Kalina Rudd is a 84 year old female. HPI SUBJECTIVE: Kalina is a 84-year-old female, with a history of HI, presenting with dyspnea on exertion. Kalina reports dyspnea on exertion, which began after an episode of bronchitis earlier this year. She experiences dyspnea when walking long distances or engaging in physical activities such as working in the garage or shopping. The dyspnea resolves upon sitting and resting. She denies any current cough, wheezing, or chest tightness. She has never smoked, but her was a smoker in the past. She does not recall undergoing any pulmonary function tests. She has a history of HI and has undergone recent cardiac evaluations, including a stress test and echocardiogram, which reportedly showed normal results. She denies any current use of thyroid medications. She is not taking vitamin D supplements and reports a diet low in iron-rich foods. She denies any signs of bleeding, such as melena or hematuria. PAST MEDICAL HISTORY Diagnosis Date Dysthymic disorder Depression (non-psychotic) Essential hypertension, benign Generalized anxiety disorder Anxiety, Generalized Generalized osteoarthrosis, unspecified site Lichen sclerosus Myalgia and myositis, unspecified OSTEOPOROSIS NOS Osteoporosis, unspecified STEMI (ST elevation myocardial infarction) (HCC) 01/19/2024 Current Outpatient Medications Medication Sig metoprolol succinate ER (TOPROL XL) 50 mg 24 hr tablet Take 1 tablet by mouth once daily. amLODIPine (NORVASC) 10 mg tablet Take 1 tablet by mouth once daily. [facility]. rosuvastatin (CRESTOR) 20 mg tablet Take 1 tablet by mouth daily at bedtime. clopidogrel (PLAVIX) 75 mg tablet Take 1 tablet by mouth once daily. isosorbide mononitrate ER (IMDUR) 30 mg 24 hr tablet Take 1 tablet by mouth once daily. Before a meal DULoxetine (CYMBALTA) 60 mg capsule Take 1 capsule by mouth once daily. gabapentin (NEURONTIN) 300 mg capsule Take 1 capsule by mouth three times a day. aspirin, enteric coated (ASPIRIN, ENTERIC COATED) 81 mg EC tablet Take 1 tablet by mouth every afternoon. dorzolamide HCl/PF (DORZOLAMIDE, PF,) 2 % drop Use 1 Drop in eyes three times daily. omeprazole (PRILOSEC) 40 mg capsule Take 1 capsule by mouth once daily. losartan (COZAAR) 50 mg tablet Take 1 tablet by mouth once daily. mirtazapine (REMERON) 15 mg tablet Take 1.5 tablets by mouth daily at bedtime. albuterol HFA (PROVENTIL HFA, VENTOLIN HFA) 90 mcg/actuation inhaler Inhale 2 puffs as instructed every 4 hours as needed for wheezing/shortness of breath. (Patient not taking: Reported on 11/11/2024) crisaborole 2 % Apply to affected area two times a day. Apply a thin film to affected area(s) 2 times daily (Patient not taking: Reported on 11/11/2024) estradiol (ESTRACE) 0.01 % (0.1 mg/gram) vaginal cream Apply to urethral opening for atrophic vaginitis. Two to three times a week. (Patient not taking: Reported on 11/11/2024) Miscellaneous [facility] [place] probiotics--Yeast and Vaginal PH support probiotic. Probiotic blend. Takes 1 by mouth at bedtime glycerin-min oil-polycarbophil (REPLENS) gel Uses Replens cream 3 times weekly (Patient not taking: Reported on 11/11/2024) COMPOUNDED PRESCRIPTION Massage therapy Dx: Fibromyalgia, Arthritis (Patient not taking: Reported on 11/11/2024) No current facility-administered medications for this visit. Review of Systems Objective BP 106/54 Pulse 70 Resp 24 Wt 65.2 kg (143 lb 11.8 oz) SpO2 91% BMI 27.85 kg/m? Physical Exam Constitutional: Appearance: Normal appearance. HENT: Head: Normocephalic. Eyes: Conjunctiva/sclera: Conjunctivae normal. Cardiovascular: Rate and Rhythm: Normal rate and regular rhythm. Heart sounds: Normal heart sounds. Pulmonary: Effort: Pulmonary effort is normal. Breath sounds: Normal breath sounds. Comments: Occasional heard low pitched wheeze Musculoskeletal: Right lower leg: No edema. Left lower leg: No edema. Skin: General: Skin is warm and dry. Neurological: General: No focal deficit present. Mental Status: She is alert and oriented to person, place, and time. Psychiatric: Mood and Affect: Mood normal. Behavior: Behavior normal. Thought Content: Thought content normal. Judgment: Judgment normal. # Essential hypertension (I10) Well controlled to on the low side. Encouraged to stay hydrated. Continue follow up with cardiology. # Renal insufficiency (N28.9) - Recent labs show BUN 27 mg/dL, (more content not included)... Normal [facility] 25(OH)D3 [facility] 2024 25-hydroxyvitamin D3 [Mass/Vol] 35.4 ng/mL Normal 31.0-80.0 [facility] Comment on above: Order Comment: Speci matt Type: BLOOD SPECIMENOrdering Facility: [facility] Address: [address] [place] [address] Performed By: #### 1 989-3 ####[facility] [id number] [address] [place] CBC panel Auto (Bld)on 11-04 Erythrocyte distribution width (RBC) [Ratio] 13.9 % Normal 11.5-15.0 [facility] Comment on above: Order Comment: Speci men Type: BLOOD SPECIMEN Ordering Facility: [facility] Address: [address] [place] [address] Performed By: #### 5 8410-2 #### [facility] CLIA [id number] [address] [place] [address] [place] Hematocrit (Bld) [Volume fraction] 37.7 % Normal 36.0-46.0 [facility] Comment on above: Order Comment: Speci men Type: BLOOD SPECIMEN Ordering Facility: [facility] Address: [address] [place] [address] Performed By: #### 5 8410-2 #### [facility] CLIA [id number] [address] [place] [address] [place] Hemoglobin (Bld) [Mass/Vol] 12.2 g/dL Normal 11.5-15.5 [facility] Comment on above: Order Comment: Speci men Type: BLOOD SPECIMEN Ordering Facility: [facility] Address: [address] [place] [address] Performed By: #### 5 8410-2 #### [facility] CLIA [id number] [address] [place] [address] [place] MCH (RBC) [Entitic mass] 30.8 pg Normal 26.0-34.0 [facility] Comment on above: Order Comment: Speci men Type: BLOOD SPECIMEN Ordering Facility: [facility] Address: [address] [place] [address] Performed By: #### 5 8410-2 #### [facility] CLIA [id number] [address] [place] [address] [place] MCHC (RBC) [Mass/Vol] 32.4 g/dL Normal 30.5-36.0 [facility] Comment on above: Order Comment: Speci men Type: BLOOD SPECIMEN Ordering Facility: [facility] Address: [address] [place] [address] Performed By: #### 5 8410-2 #### [facility] CLIA [id number] [address] [place] [address] [place] MCV (RBC) [Entitic vol] 95.2 fL Normal 80.0-100.0 [facility] Comment on above: Order Comment: Speci men Type: BLOOD SPECIMEN Ordering Facility: [facility] Address: [address] [place] [address] Performed By: #### 5 8410-2 #### [facility] CLIA [id number] [address] [place] [address] [place] Nucleated RBC (Bld) [#/Vol] 10*3/uL Normal <0.01 [facility] Comment on above: Order Comment: Speci men Type: BLOOD SPECIMEN Ordering Facility: [facility] Address: [address] [place] [address] Performed By: #### 5 8410-2 #### [facility] CLIA [id number] [address] [place] [address] [place] Platelet mean volume (Bld) [Entitic vol] 10.6 fL Normal 9.0-12.7 [facility] Comment on above: Order Comment: Speci men Type: BLOOD SPECIMEN Ordering Facility: [facility] Address: [address] [place] [address] Performed By: #### 5 8410-2 #### [facility] CLIA [id number] [address] [place] [address] [place] Platelets (Bld) [#/Vol] 296 10*3/uL Normal 150-400 [facility] Comment on above: Order Comment: Speci men Type: BLOOD SPECIMEN Ordering Facility: [facility] Address: [address] [place] [address] Performed By: #### 5 8410-2 #### [facility] CLIA [id number] [address] [place] [address] [place] RBC (Bld) [#/Vol] 3.96 10*6/uL Normal 3.90-5.20 [facility] Comment on above: Order Comment: Speci men Type: BLOOD SPECIMEN Ordering Facility: [facility] Address: [address] [place] [address] Performed By: #### 5 8410-2 #### [facility] CLIA [id number] [address] [place], [place] [address] [place] WBC (Bld) [#/Vol] 6.86 10*3/uL Normal 3.70-11.00 [facility] Comment on above: Order Comment: Speci men Type: BLOOD SPECIMEN Ordering Facility: [facility] Address: [address] [place] [address] Performed By: #### 5 8410-2 #### [facility] CLIA [id number] [address] [place] [address] [place] Comprehensive metabolic 2000 panelon 11-04-2024 Albumin [Mass/Vol] 4.3 g/dL Normal 3.9-4.9 [facility] Comment on above: Order Comment: Speci men Type: BLOOD SPECIMENOrdering Facility: [facility] Address: [address] [place] [address] Performed By: #### 2 4323-8, 27905-1, 3051-0, 302-7 ####[facility] LABCLIA [id number] [place] [address] [place] ALP [Catalytic activity/Vol] 127 U/L High 34-123 [facility] Comment on above: Order Comment: Speci men Type: BLOOD SPECIMENOrdering Facility: [facility] Address: [address] [place] [address] Performed By: #### 2 4323-8, 74707-1, 3051-0, 302-7 ####[facility] LABCLIA [id number] [place] [id number] [place] ALT [Catalytic activity/Vol] 12 U/L Normal 7-38 [facility] Comment on above: Order Comment: Speci men Type: BLOOD SPECIMENOrdering Facility: [facility] Address: [address] [place] [address] Performed By: #### 2 4323-8, 38855-9, 3051-0, 3024-7 ####[facility]CLIA [id number] [address] [address] [place] Anion gap [Moles/Vol] 11 mmol/L Normal 8-15 [facility] Comment on above: Order Comment: Speci men Type: BLOOD SPECIMENOrdering Facility: [facility] Address: [address] [place], [place] [address] Performed By: #### 2 4323-8, 63226-6, 305-0, 3023-08 ####[facility]CLIA [id number] [address] [address] [place] AST [Catalytic activity/Vol] 19 U/L Normal 13-35 [facility] Comment on above: Order Comment: Speci men Type: BLOOD SPECIMENOrdering Facility: [facility] Address: [address] [place] [address] Performed By: #### 2 4323-8, 83462-4, 305-0, 3023-08 ####[facility] [id number] [address] [address] [place] Bilirubin [Mass/Vol] 0.5 mg/dL Normal 0.2-1.3 [facility] Comment on above: Order Comment: Speci men Type: BLOOD SPECIMENOrdering Facility: [facility] Address: [address] [place] [address] Performed By: #### 2 4323-8, 25228-9, 305-0, 3023-08 ####[facility]CLIA [id number] [address] [address] [place] Calcium [Mass/Vol] 10.0 mg/dL Normal 8.5-10.2 [facility] Comment on above: Order Comment: Speci men Type: BLOOD SPECIMENOrdering Facility: [facility] Address: [address] [place] [address] Performed By: #### 2 4323-8, 18907-0, 305-0, 3027 ####[facility]CLIA [id number] [address] [address] [place] Chloride [Moles/Vol] 106 mmol/L Normal 98-107 [facility] Comment on above: Order Comment: Speci men Type: BLOOD SPECIMENOrdering Facility: [facility] Address: [address] [place] [address] Performed By: #### 2 4323-8, 43500-4, 305-0, 3027 ####[facility]CL[facility] [id number] [address] [address] [place] CO2 [Moles/Vol] 24 mmol/L Normal 22-30 [facility] Comment on above: Order Comment: Speci men Type: BLOOD SPECIMENOrdering Facility: [facility] Address: [address] [place] [address] Performed By: #### 2 4323-8, 64614-8, 305-0, 7 ####[facility] LABIA [id number] [address] [address] [place] Creatinine [Mass/Vol] 1.11 mg/dL High 0.58-0.96 [facility] Comment on above: Order Comment: Speci men Type: BLOOD SPECIMENOrdering Facility: [facility] Address: [address] [place] [address] Performed By: #### 2 4323-8, 49706-6, 305-0, 3027 ####[facility] LABIA [id number] [address] [address] [place] eGFRcr SerPlBld CKD-EPI 2020 49 mL/min/1.73m??? Low >=60 [facility] Comment on above: Order Comment: Speci men Type: BLOOD SPECIMENOrdering Facility: [facility] Address: [address] [place], [place] [address] Result Comment: Shara mated Glomerular Filtration Rate [...] actual GFR. Performed By: #### 2 4323-8, 12978-9, 305-0, 3023-08 ####[facility] LABIA [id number] [address] [address] [place] Glucose [Mass/Vol] 86 mg/dL Normal 74-99 [facility] Comment on above: Order Comment: Tiffanie gutierrez Type: BLOOD SPECIMENOrdering Facility: [facility] Address: [address] [place] [address] Result Comment: The [place] [employer] (ADA) provides guidance for cutoff [...] Standards of Medical Care in Diabetes 2016, [place] [employer]. Diabetes Care. 2016.39(Suppl 1). Performed By: #### 2 4323-8, 03781-4, 305-0, 3023-08 ####[facility]IA [id number] [address] [address] [address] [place] Potassium [Moles/Vol] 4.9 mmol/L Normal 3.7-5.1 [facility] Comment on above: Order Comment: Tiffanie gutierrez Type: BLOOD SPECIMENOrdering Facility: [facility] Address: [address] [place] [address] Performed By: #### 2 4323-8, 43760-5, 3051-0, 3027 ####[facility] [id number] [address] [address] [place] Protein [Mass/Vol] 7.6 g/dL Normal 6.3-8.0 [facility] Comment on above: Order Comment: Speci men Type: BLOOD SPECIMENOrdering Facility: [facility] Address: [address] [place] [address] Performed By: #### 2 4323-8, 68146-5, 305-0, 7 ####[facility] [id number] [address] [address] [place] Sodium [Moles/Vol] 141 mmol/L Normal 136-144 [facility] Comment on above: Order Comment: Speci men Type: BLOOD SPECIMENOrdering Facility: [facility] Address: [address] [place] [address] Performed By: #### 2 4323-8, 13780-4, 305-0, 7 ####[facility] [id number] [address] [address] [place] Urea nitrogen [Mass/Vol] 27 mg/dL High - [facility] Comment on above: Order Comment: Speci men Type: BLOOD SPECIMENOrdering Facility: [facility] Address: [address] [place] [address] Performed By: #### 2 4323-8, 18134-6, 305-0, 7 ####[facility] [id number] [address] [address] [place] HbA1c (Bld)on 11-04-2024 Average glucose Estimated from glycated hemoglobin (Bld) [Mass/Vol] 100 mg/dL Normal [facility] Comment on above: Order Comment: Speci men Type: BLOOD SPECIMENOrdering Facility: [facility] Address: [address] [place] [address] Result Comment: eAG: (Estimated average glucose) is a calculated value from HgbA1c and is bilingual sales representative of the average blood glucose level in the last 2-3 month period. Performed By: #### 5 5454-3 ####[facility] LABIA [id number] [place] [address] [place] HbA1c (Bld) [Mass fraction] 5.1 % Normal 4.3-5.6 [facility] Comment on above: Order Comment: Tiffanie gutierrez Type: BLOOD SPECIMENOrdering Facility: [facility] Address: [address] [place] [address] Result Comment: [facility] Diabetes Association guidelines indicate that patients with HgbA1c in the range 5.7-6.4% are at increased risk for development of diabetes, and intervention by lifestyle modification may be beneficial. HgbA1c greater or equal to 6.5% is considered diagnostic of diabetes. Performed By: #### 5 5454-3 ####[facility] LABIA [id number] [address] [place] Lipid 1996 panelon 5 Cholesterol [Mass/Vol] 131 mg/dL Normal <200 [facility] Comment on above: Order Comment: Tiffanie gutierrez Type: BLOOD SPECIMENOrdering Facility: [facility] Address: [address] [place] [address] Result Comment: <200 mg/dL, Desirable 200-239 mg/dL, Borderline high >239 mg/dL, High Performed By: #### 2 4323-8, 15874-9, 3051-0, 3024-7 ####[facility] LABIA [id number] [place] [id number] [facility] [place] Cholesterol in HDL [Mass/Vol] 58 mg/dL Normal >39 [facility] Comment on above: Order Comment: Tiffanie gutierrez Type: BLOOD SPECIMENOrdering Facility: [facility] Address: [address] [place] [address] Result Comment: 40-5 9 mg/dL, Acceptable >59 mg/dL, High: Negative risk factor for coronary heart disease <40 mg/dL, Low: Positive risk factor for coronary heart disease Performed By: #### 2 4323-8, 40974-4, 305-0, 3023-08 ####[facility] LABCLIA [id number] [facility] [address] [address] [place] Cholesterol in LDL [Mass/Vol] 56 mg/dL Normal <100 [facility] Comment on above: Order Comment: Speci men Type: BLOOD SPECIMENOrdering Facility: [facility] Address: [address] [place] [address] Result Comment: <100 mg/dL, Optimal 100-129 mg/dL, Near optimal/above optimal 130-159 mg/dL, Borderline high 160-189 mg/dL, High >189 mg/dL, Very high Secondary prevention optimal LDL Cholesterol levels are recommended to be <70 mg/dL LDL cholesterol is calculated using the Woody-NIH equation. Performed By: #### 2 4323-8, 19666-4, 0, 3023-08 ####[facility] LABIA [id number] [address] [place] [address] [place] Cholesterol in LDL/Cholesterol in HDL [Mass ratio] 0.97 {ratio} Normal <2.54 [facility] Comment on above: Order Comment: Speci men Type: BLOOD SPECIMENOrdering Facility: [facility] Address: [address] [place] [address] Result Comment: Refe rence: 1. National Cholesterol Education Program ATP III Guideline At-A-Glance Quick Desk Reference: National Heart, Lung, and Blood Ward. National Institutes of Health. 2001: NIH Publication No. 01-3305. 2. An International Atherosclerosis Society position paper: global recommendations for the management of dyslipidemia: executive summary, Atherosclerosis. 2014: 232(2):410-413. Performed By: #### 2 4323-8, 93123-4, 305-0, 3023-08 ####[facility] LABCLIA [id number] [address] [place] [address] [place] Cholesterol in VLDL [Mass/Vol] 13 mg/dL Normal <30 [facility] Comment on above: Order Comment: Speci men Type: BLOOD SPECIMENOrdering Facility: [facility] Address: [address] [place] [address] Performed By: #### 2 4323-8, 76527-6, 305-0, 3023-08 ####[facility] LABCLIA [id number] [facility] [address] [address] [place] Cholesterol non HDL [Mass/Vol] 73 mg/dL Normal <130 [facility] Comment on above: Order Comment: Speci men Type: BLOOD SPECIMENOrdering Facility: [facility] Address: [address] [place] [address] Result Comment: <130 mg/dL, Optimal 130-159 mg/dL, Near optimal/above optimal 160-189 mg/dL, Borderline high 190-219 mg/dL, High >219 mg/dL, Very high Secondary prevention optimal non HDL Cholesterol levels are recommended to be <100 mg/dL Performed By: #### 2 4323-8, 99292-1, 305-0, 3023-08 ####[facility] LABCLIA [id number] [address] [address] [place] Cholesterol.total/Chol esterol in HDL [Mass ratio] 2.26 {ratio} Normal <5.10 [facility] Comment on above: Order Comment: Speci men Type: BLOOD SPECIMENOrdering Facility: [facility] Address: [address] [place] [address] Performed By: #### 2 4323-8, 26278-1, 3050, 3023-08 ####[facility] LABCLIA [id number] [address] [address] [place] FASTING TIME 13 hrs Normal [facility] Comment on above: Order Comment: Speci men Type: BLOOD SPECIMENOrdering Facility: [facility] Address: [address] [place], [place] [address] Performed By: #### 2 4323-8, 30093-4, 305-0, 3023-08 ####[facility] LABCLIA [id number] [address] [address] [place] Triglyceride [Mass/Vol] 91 mg/dL Normal <150 [facility] Comment on above: Order Comment: Speci men Type: BLOOD SPECIMENOrdering Facility: [facility] Address: [address] [place] [address] Result Comment: <150 mg/dL, Normal 150-199 mg/dL, Borderline high 200-499 mg/dL, High >499 mg/dL, Very high Performed By: #### 2 4323-8, 02653-3, 3051-0, 3024-7 ####[facility] LABCLIA [id number] [place] [address] [place] Magnesium SerPl-mCncon 11-04 Magnesium [Mass/Vol] 2.3 mg/dL Normal 1.7-2.3 [facility] Comment on above: Order Comment: Speci men Type: BLOOD SPECIMENOrdering Facility: [facility] Address: [address] [place] [address] Performed By: #### 1 9123-9, 3016-3 ####[facility] LABIA [id number] [place] [address] [place] T3Free SerPl-mCncon 11-04-20 25 Free T3 [Mass/Vol] 2.2 pg/mL Low 2.3-4.1 [facility] Comment on above: Order Comment: Speci men Type: BLOOD SPECIMENOrdering Facility: [facility] Address: [address] [place] [address] Performed By: #### 2 4323-8, 59401-5, 3051-0, 3024-7 ####[facility] LABCLIA [id number] [place] [id number] [place] T4 Free SerPl-mCncon 11-04-2 025 Free T4 [Mass/Vol] 1.0 ng/dL Normal 0.9-1.7 [facility] Comment on above: Order Comment: Speci men Type: BLOOD SPECIMENOrdering Facility: [facility] Address: [address] [place] [address] Performed By: #### 2 4323-8, 34120-0, 3051-0, 3024-7 ####[facility] LABCLIA [id number] [place] [address] [place] THYROID PEROXIDASE ANTIBODYo n 11-04-2024 TPO Ab Qn [IU]/mL Normal <5.6 [facility] Comment on above: Order Comment: Speci men Type: BLOOD SPECIMENOrdering Facility: [facility] Address: [address] [place] [address] Result Comment: Thyr oid Peroxidase Antibody test is used as an aid in diagnosis of autoimmune thyroid disease. Clinical correlation is required. Performed By: #### M ICRO ####[facility] LABCLIA [id number] [place] [address] [place] TSH SerPl-aCncon 11-04-2024 TSH Qn 3.270 m[IU]/L Normal 0.270-4.200 [facility] Comment on above: Order Comment: Speci men Type: BLOOD SPECIMENOrdering Facility: [facility] Address: [address] [place] [address] Performed By: #### 1 9123-9, 3016-3 ####[facility] LABCLIA [id number] [place] [address] [place] Cardiovascular stress test r eportOrdered By: Valdemar Kimble on 10-27-2024 Study report [facility] Services [address] [place] [address] MR#: [id number] Acct: [id number] Name: KALINA RUDD Rep #: [id number] : 1940 84 From: Valdemar Kimble MD Primary Care: Dr. Karen Resendiz MD Sta tus: REG CLI Referring Dr: Joanne Apple NP Sex: F C Stress Test Report Pharmacologic myocardial perfusion stress test. 84-year-old female with a history of coronary disease and dyspnea. Resting EKG demonstrates normal sinus rhythm with a rate of 60 bpm. Resting blood pressure is 160/70 mmHg. 0.4 mg of regadenoson was infused per usual protocol followed by rapid intravenous saline flush injection. Continuous EKG monitoring was performed. The maximum heart rate was 86 bpm which was 63% of maximpacted heart rate the maximum workload was 1 metabolic equivalent. At rest there were no ST or T wave changes noted to suggest ischemia and at peak infusion nonspecific ST changes were noted which did not meet the criteria for ischemia. No clinical angina is noted. The final blood pressure was 134/70 mmHg. Myocardial perfusion protocol. 11 point mCi of technetium 99m sestamibi was injected at rest. 0.4 mg of regadenoson was infused per usual protocol. At peak infusion 35 mCi of technetium 99m sestamibi was injected stress images were obtained stress and rest images were reconstructed and compared in the short axis vertical long and horizontal long axis. Gated images were also obtained. Perfusion SPECT analysis: Review of the stress images demonstrate normal uptake of tracer noted in all areas of the myocardium. The resting images similar demonstrated normal uptake of tracer noted in all areas of the myocardium. No areas of reversibility are noted to suggest ischemia and no previous infarct is noted. Gated SPECT analysis: The gated ejection fraction is 79%. Conclusion: Normal pharmacologic myocardial perfusion stress test. Preserved ejection fraction. 10/27/241812 Date _ Valdemar Kimble MD CC: MEG Apple; Dr. Karen Resendiz MD ~ Date Dictated: 10/27/241810 Date Transcribed: 10/27/241810 Cigarette Paper Tester: CO Signed [facility] Work Phone: Stress Reporton 10-27-2024 Stress Report [facility] Cardiovascular Services [address] [place] [address] MR#: [id number] Acct: [id number] Name: KALINA RUDD Rep #: [id number] : 1940 84 From: Valdemar Kimble MD Primary Care: Dr. Karen Resendiz MD Status: REG CLI Referring Dr: Joanne Apple NP BUMPER OPERATOR-C Sex: F C Stress Test Report Pharmacologic myocardial perfusion stress test. 84-year-old female with a history of coronary disease and dyspnea. Resting EKG demonstrates normal sinus rhythm with a rate of 60 bpm. Resting blood pressure is 160/70 mmHg. 0.4 mg of regadenoson was infused per usual protocol followed by rapid intravenous saline flush injection. Continuous EKG monitoring was performed. The maximum heart rate was 86 bpm which was 63% of max impacted heart rate the maximum workload was 1 metabolic equivalent. At rest there were no ST or T wave changes noted to suggest ischemia and at peak infusion nonspecific ST changes were noted which did not meet the criteria for ischemia. No clinical angina is noted. The final blood pressure was 134/70 mmHg. Myocardial perfusion protocol. 11 point mCi of technetium 99m sestamibi was injected at rest. 0.4 mg of regadenoson was infused per usual protocol. At peak infusion 35 mCi of technetium 99m sestamibi was injected stress images were obtained stress and rest images were reconstructed and compared in the short axis vertical long and horizontal long axis. Gated images were also obtained. Perfusion SPECT analysis: Review of the stress images demonstrate normal uptake of tracer noted in all areas of the myocardium. The resting images similar demonstrated normal uptake of tracer noted in all areas of th e myocardium. No areas of reversibility are noted to suggest ischemia and no previous infarct is noted. Gated SPECT analysis: The gated ejection fraction is 79%. Conclusion: Normal pharmacologic myocardial perfusion stress test. Preserved ejection fraction. 10/27/241812 Date Valdemar Kimble MD CC: MEG Apple; Dr. Karen Resendiz MD Date Dictated: 10/27/241810 Date Transcribed: 10/27/241810 Cigarette Paper Tester: CO Signed Normal [facility] Echo Completeon 09-28-2024 Echo Complete [facility] Cardiovascular Services [address] [place] [address] Echo Complete 09/28/24 1356 MR#: [id number] Acct: [id number] Name: KALINA RUDD Rep #: [id number] : 1940 84 From: Valdemar Kimble MD Attending Dr: Joanne Apple BUMPER OPERATOR-C Status: REG [facility] Ordering Dr: Joanne Apple BUMPER OPERATOR BUMPER OPERATOR-C Date: 09/28/24 Location: [facility] Sex: F C Admitted: Reason For Study [...] Performed By: Faviola Reynolds, AFSHIN, RVT 09/28/24 0401 Date Valdemar Kimble MD CC: MEG Apple; Dr. Karen Resendiz MD Date Dictated: 09/28/24 1356 Date Transcribed: 09/28/24 1649 Cigarette Paper Tester: Signed Normal [facility] Echocardiogram study reportO rdered By: Valdemar Kimble on 09-28-2024 Study report [facility] [address] [place] [address] Echo Complete 09/28/24 1356 MR#: [id number] Acct: [id number] Name: KALINA RUDD Rep #:[id number] : 1940 84 From: Valdemar Gutierrez Attending Dr: Joanne Apple, MEG Roldan tatus: REG CLI Ordering Dr: Joanne Apple NP Grover e: 09/28/24 Location: [facility] Sex: F C Admitted: Reason For Study [...] Resendiz Performed By: Faviola Reynolds, RDCS, RVT 09/28/241648 Date _ Valdemar Kimble MD CC: MEG Apple; Dr. Karen Resendiz MD ~ Date Dictated: 09/28/24 1356 Date Transcribed: 09/28/241648 Cigarette Paper Tester: Signed [facility] Work Phone: CNOVon 09-24-2024 CNOV Office Visit (INTMWS ) -- KALINA RUDD ([id number]) 1940 F T Date Time Provider Department 09/24/24 2:20 PM KAREN RESENDIZ INTMWS During your visit today, we recorded the following information about you: Pulse Blood pressure Weight 60/minute 130/78 62.1 kg Karen Resendiz MD 11/05/2024 1:27 AM Signed Subjective Kalina Rudd is a 84 year old female. HPI SUBJECTIVE: Kalina Rudd is a 84-year-old female with a history of fibromyalgia, aortic valve insufficiency, and depression, presenting with insomnia, anxiety, and depression. Kalina reports difficulty sleeping at night and has been sleeping during the day, typically from 0500 to 0700 until 1600 to 1630. She has been taking Remeron 15 mg for sleep, prescribed by Nelli, but reports it has not been effective. She inquires about increasing the dosage. She also reports anxiety and depression, stating, I'm depressed, I'm dehydrated, I'm everything. She has not been able to concentrate on reading and has been watching TV at night when she cannot sleep. She expresses a desire to have a more regular sleep schedule, ideally going to bed at 2300 and waking up at 1000. Kalina was seen in the ER on 09/19 for burning discomfort on the left side of her chest, which was attributed to fibromyalgia and depression. She denies nausea, emesis, or dyspnea during that episode. She has an upcoming echocardiogram on Friday to evaluate her aortic valve insufficiency, which was previously described as mild to moderate. She expresses concern about the possibility of needing a valve replacement. She has been taking her medications irregularly due to her sleep schedule. She usually takes her first set of medications at 1600 to 1630, followed by another set 1.5 hours later, and her cholesterol medication around 2330 to 0000. She inquires about adjusting her medication schedule to align with her current sleep pattern. She reports weight gain and has been drinking Boost nutritional drinks, which she believes have contributed to her weight gain. She also reports occasional leg swelling, which she attributes to dietary salt intake. She uses Mayberry's light salt and inquires about its iodine content. She has a history of thyroid dysfunction, with a TSH level of 4.35 on 09/07, and expresses concern about the possibility of needing medication for her thyroid. She also reports a fasting blood glucose level of 120 on 09/07 and expresses concern about the possibility of needing medication for her blood glucose levels. She has been experiencing dyspnea with physical activity and reports feeling out of breath when doing chores. She has been advised to seek counseling but has not done so due to her irregular sleep schedule. She reports a history of anxiety and worry, stating, I've always been anxious. I worry. PAST MEDICAL HISTORY Diagnosis Date Dysthymic disorder Depression (non-psychotic) Essential hypertension, benign Generalized anxiety disorder Anxiety, Generalized Generalized osteoarthrosis, unspecified site Lichen sclerosus Myalgia and myositis, unspecified OSTEOPOROSIS NOS Osteoporosis, unspecified STEMI (ST elevation myocardial infarction) ([facility]) 01/19/2024 Current Outpatient Medications Medication Sig rosuvastatin (CRESTOR) 20 mg tablet Take 1 tablet by mouth daily at bedtime. clopidogrel (PLAVIX) 75 mg tablet Take 1 tablet by mouth once daily. isosorbide mononitrate ER (IMDUR) 30 mg 24 hr tablet Take 1 tablet by mouth once daily. Before a meal DULoxetine (CYMBALTA) 60 mg capsule Take 1 capsule by mouth once daily. gabapentin (NEURONTIN) 300 mg capsule Take 1 [...] vaginitis. Two to three times a week. dorzolamide HCl/PF (DORZOLAMIDE, PF,) 2 % drop Use 1 Drop in eyes three times daily. metoprolol succinate ER (TOPROL XL) 50 mg 24 hr tablet Take 1 tablet by mouth once daily. amLODIPine (NORVASC) 10 mg tablet Take 1 tablet by mouth once daily. [facility]. mirtazapine (REMERON) 15 mg tablet Take 1 tablet by mouth daily at bedtime. albuterol HFA (PROVENTIL HFA, VENTOLIN HFA) 90 mcg/actuation inhaler Inhale 2 puffs as instructed every 4 hours as needed for wheezing/shortness of breath. crisaborole 2 % Apply to affected area two times a day. Apply a thin film to affected area(s) 2 times daily [facility] probiotics--Yeast and Vaginal PH support probiotic. Probiotic blend. Takes 1 by mouth at bedtime glycerin-min oil-polycarbophil (REP (more content not included)... Normal [facility] 12 Lead EKGon 09-19-2024 12 Lead EKG [facility] Cardiovascular Services [address] [place] [address] 12 Lead EKG 09/19/24 0432 MR#: [id number] Acct: [id number] Name: KALINA RUDD Everardo Rep #: [id number] : 1940 84 From: Valdemar Kimble MD [...] Normal sinus rhythm Normal ECG Confirmed by VALDEMAR KIMBLE MD ([id number]), editorial specialist YASMIN VO ([id number]) on 09/20/2024 1:14:54 PM Referred By: Confirmed By: VALDEMAR KIMBLE MD 09/20/24 1314 Date Valdemar Kimble MD CC: Dr. Karen Resendiz MD; Chetan Nick DO Signed Normal [facility] Absolute lymphocyte countOrd ered By: Chetan Nick on 09-19-2024 Lymphocytes Auto (Unsp spec) [#/Vol] 2.17 10*3/uL 0.83-4.51 [facility] Absolute neutrophil countOrd ered By: Chetan Nick on 09-19-2024 Neutrophils (Bld) [#/Vol] 6.0 10*3/uL 2.0-7.7 [facility] Anion gap in Serum or Plasma Ordered By: Chetan Nick on 09-19-2024 Anion gap [Moles/Vol] 14 mmol/L 5- [facility] Automated lymphocyte count a s percentage of total leukocytesOrdered By: Chetan Nick on 09-19-2024 Lymphocytes/100 WBC Auto (Unsp spec) 23.6 % - [facility] BUN/creatinine ratioOrdered By: Chetan Nick on 09-19-2024 Urea nitrogen/Creatinine [Mass ratio] 29.4 mg/mg High 11-29 [facility] Basic Metabolic Profile (BMP )on 09-19-2024 BUN/CRE 29.4 RATIO High 11-29 [facility] Comment on above: Order Comment: ANDRY Thornton PREVIOUS SPECIMEN REJECTED DUE TO HEMOLYSIS. 09/19/24 0513 Alfredo Tenorio. Performed By: #### L 501.5200, L501.9582, L500.2500, L501.4026 #### [facility] [address] [place], [address] Calcium [Mass/Vol] 9.6 mg/dL Normal 7.6-11.0 [facility] Comment on above: Order Comment: REDRA W. PREVIOUS SPECIMEN REJECTED DUE TO HEMOLYSIS. 09/19/24512 Alfredo Tenorio. Performed By: #### L 501.5200, L501.9520, L500.2500, L501.4021 #### [facility] [address] [place], [address] Chloride [Moles/Vol] 101 mmol/L Normal 98-108 [facility] Comment on above: Order Comment: REDRA W. PREVIOUS SPECIMEN REJECTED DUE TO HEMOLYSIS. 09/19/24512 Alfredo Tenorio. Performed By: #### L 501.5200, L501.9520, L500.2500, L501.4021 #### [facility] [address] [place], [address] CO2 [Moles/Vol] 20.9 mmol/L Low 21.0-32.0 [facility] Comment on above: Order Comment: REDRA W. PREVIOUS SPECIMEN REJECTED DUE TO HEMOLYSIS. 09/19/24512 Alfredo Tenorio. Performed By: #### L 501.5200, L501.9520, L500.2500, L501.4021 #### [facility] [address] [place], [address] Creatinine [Mass/Vol] 1.16 mg/dL Normal 0.70-1.20 [facility] Comment on above: Order Comment: REDRA W. PREVIOUS SPECIMEN REJECTED DUE TO HEMOLYSIS. 09/19/24512 Alfredo Tenorio. Performed By: #### L 501.5200, L501.9520, L500.2500, L501.4021 #### [facility] [address] [place], [address] ECRCL 31.54 ml/min Low 50-250 [facility] Comment on above: Order Comment: REDRA W. PREVIOUS SPECIMEN REJECTED DUE TO HEMOLYSIS. 09/19/24512 Alfredo Tenorio. Performed By: #### L 501.5200, L501.9520, L500.2500, L501.4021 #### [facility] Laboratory [address] [place], [address] GAP 14 Normal 5-15 [facility] Comment on above: Order Comment: REDRA W. PREVIOUS SPECIMEN REJECTED DUE TO HEMOLYSIS. 09/19/24512 Alfredo Tenorio. Performed By: #### L 501.5200, L501.9520, L500.2500, L501.4021 #### [facility] Laboratory [address] [place], [address] GFR/1.73 sq M.predicted among non-blacks MDRD (S/P/Bld) [Vol rate/Area] 46 mL/min/{1.73_m2} Low >60 [facility] Comment on above: Order Comment: REDRA W. PREVIOUS SPECIMEN REJECTED DUE TO HEMOLYSIS. 09/19/24512 Alfredo Tenorio. Result Comment: mL/m in/1.73m2 CKD-EPI Creatinine Equation (2020) Performed By: #### L 501.5200, L501.9520, L500.2500, L501.4021 #### [facility] Laboratory [address] [place], [address] Glucose [Mass/Vol] 124 mg/dL High 70-99 [facility] Comment on above: Order Comment: REDRA W. PREVIOUS SPECIMEN REJECTED DUE TO HEMOLYSIS. 09/19/24512 Alfredo Tenorio. Performed By: #### L 501.5200, L501.9520, L500.2500, L501.4021 #### [facility] Laboratory [address] [place], [address] Potassium [Moles/Vol] 4.1 mmol/L Normal 3.3-5.1 [facility] Comment on above: Order Comment: REDRA W. PREVIOUS SPECIMEN REJECTED DUE TO HEMOLYSIS. 09/19/24512 Alfredo Tenorio. Performed By: #### L 501.5200, L501.9520, L500.2500, L501.4021 #### [facility] [address] [place], [address] Sodium [Moles/Vol] 136 mmol/L Normal 133-145 [facility] Comment on above: Order Comment: REDRA W. PREVIOUS SPECIMEN REJECTED DUE TO HEMOLYSIS. 09/19/24512 Alfredo Bartholomew White. Performed By: #### L 501.5200, L501.9520, L500.2500, L501.4021 #### [facility] Laboratory [address] [place], [address] Urea nitrogen [Mass/Vol] 34 mg/dL High - [facility] Comment on above: Order Comment: REDRA W. PREVIOUS SPECIMEN REJECTED DUE TO HEMOLYSIS. 09/19/24512 Alfredo Bartholomew Coby. Performed By: #### L 501.5200, L501.9520, L500.2500, L501.4021 #### [facility] Laboratory [address] [place], [address] BUN Normal 05-29 [facility] Comment on above: Result Comment: This specimen has been REJECTED due to Laboratory criteria: Hemolyzed. HECTOR (ED) has been notified of need of recollection. 09/19/24511 Alfredo Bartholomew White Performed By: #### L 501.5200, L501.9520, L500.2500, L501.4021 #### [facility] Laboratory [address] [place], [address] BUN/CRE Normal - [facility] Comment on above: Result Comment: This specimen has been REJECTED due to Laboratory criteria: Hemolyzed. HECTOR (ED) has been notified of need of recollection. 09/19/24511 Alfredo Bartholomew White Performed By: #### L 501.5200, L501.9520, L500.2500, L501.4021 #### [facility] Laboratory [address] [place], [address] Calcium Normal 7.6-11.0 [facility] Comment on above: Result Comment: This specimen has been REJECTED due to Laboratory criteria: Hemolyzed. HECTOR (ED) has been notified of need of recollection. 09/19/24511 Alfredo Bartholomew White Performed By: #### L 501.5200, L501.9520, L500.2500, L501.4021 #### [facility] [address] [place], [address] CL Normal 98-108 [facility] Comment on above: Result Comment: This specimen has been REJECTED due to Laboratory criteria: Hemolyzed. HECTOR (ED) has been notified of need of recollection. 09/19/24511 Alfredo Bartholomew White Performed By: #### L 501.5200, L501.9520, L500.2500, L501.4021 #### [facility] [address] [place], [address] CO2 Normal 21.0-32.0 [facility] Comment on above: Result Comment: This specimen has been REJECTED due to Laboratory criteria: Hemolyzed. HECTOR (ED) has been notified of need of recollection. 09/19/24511 Alfredo Bartholomew White Performed By: #### L 501.5200, L501.9520, L500.2500, L501.4021 #### [facility] [address] [place], [address] CREAT,SERUM Normal 0.70-1.20 [facility] Comment on above: Result Comment: This specimen has been REJECTED due to Laboratory criteria: Hemolyzed. HECTOR (ED) has been notified of need of recollection. 09/19/24511 Alfredo Bartholomew White Performed By: #### L 501.5200, L501.9520, L500.2500, L501.4021 #### [facility] [address] [place], [address] eGFR Normal >60 [facility] Comment on above: Result Comment: This specimen has been REJECTED due to Laboratory criteria: Hemolyzed. HECTOR (ED) has been notified of need of recollection. 09/19/24511 Alfredo Bartholomew White Performed By: #### L 501.5200, L501.9520, L500.2500, L501.4021 #### [facility] [address] [place], [address] GAP Normal 5-15 [facility] Comment on above: Result Comment: This specimen has been REJECTED due to Laboratory criteria: Hemolyzed. HECTOR (ED) has been notified of need of recollection. 09/19/24511 Alfredo L White Performed By: #### L 501.5200, L501.9520, L500.2500, L501.4021 #### [facility] [address] [place], [address] GLU Normal 70-99 [facility] Comment on above: Result Comment: This specimen has been REJECTED due to Laboratory criteria: Hemolyzed. HECTOR (ED) has been notified of need of recollection. 09/19/24511 Alfredo L White Performed By: #### L 501.5200, L501.9520, L500.2500, L501.4021 #### [facility] [address] [place], [address] Potassium Normal 3.3-5.1 [facility] Comment on above: Result Comment: This specimen has been REJECTED due to Laboratory criteria: Hemolyzed. HECTOR (ED) has been notified of need of recollection. 09/19/24511 Alfredo L White Performed By: #### L 501.5200, L501.9520, L500.2500, L501.4021 #### [facility] [address] [place], [address] Basic Metabolic Profile (BMP) Normal 133-145 [facility] Comment on above: Result Comment: This specimen has been REJECTED due to Laboratory criteria: Hemolyzed. HECTOR (ED) has been notified of need of recollection. 09/19/24511 Alfredo Bartholomew Coby Performed By: #### L 501.5200, L501.9520, L500.2500, L501.4021 #### [facility] [address] [place], [address] Basophil percentageOrdered B y: Chetan Nick on 09-19-2024 Basophils/100 WBC (Bld) 0.4 % 0-1 [facility] CBC W/Diff, Automatedon 09-10-2024 Absolute Lymph 2.17 X10 3/uL Normal 0.83-4.51 [facility] Comment on above: Performed By: #### L 501.5200, L501.9520, L500.2500, L501.4021 #### [facility] [address] [place], [address] Absolute Neut 6.0 X10 3/uL Normal 2.0-7.7 [facility] Comment on above: Performed By: #### L 501.5200, L501.9520, L500.2500, L501.4021 #### [facility] [address] [place], [address] Basophils/100 WBC (Bld) 0.4 % Normal 0-1 [facility] Comment on above: Performed By: #### L 501.5200, L501.9520, L500.2500, L501.4021 #### [facility] [address] [place], [address] Eosinophils/100 WBC (Bld) 2.4 % Normal 0-5 [facility] Comment on above: Performed By: #### L 501.5200, L501.9520, L500.2500, L501.4021 #### [facility] [address] [place], [address] Erythrocyte distribution width (RBC) [Ratio] 13.8 % Normal 11.6-14.6 [facility] Comment on above: Performed By: #### L 501.5200, L501.9520, L500.2500, L501.4021 #### [facility] Laboratory [address] [place], [address] Hematocrit (Bld) [Volume fraction] 34.9 % Low 37-47 [facility] Comment on above: Performed By: #### L 501.5200, L501.9520, L500.2500, L501.4021 #### [facility] [address] [place], [address] Hemoglobin (Bld) [Mass/Vol] 11.4 g/dL Low 12.0-15.0 [facility] Comment on above: Performed By: #### L 501.5200, L501.9520, L500.2500, L501.4021 #### [facility] [address] [place], [address] IG% 0.400 Normal 0.0-0.9 [facility] Comment on above: Result Comment: IG% - Immature Granulocytes (promyelocytes, myelocytes and metamyelocytes) > 1% indicates that a LEFT SHIFT is Present. Performed By: #### L 501.5200, L501.9520, L500.2500, L501.4021 #### [facility] [address] [place], [address] Lymphocytes/100 WBC (Bld) 23.6 % Normal 19-41 [facility] Comment on above: Performed By: #### L 501.5200, L501.9520, L500.2500, L501.4021 #### [facility] [address] [place], [address] MCH (RBC) [Entitic mass] 29.7 pg Normal 27.0-32.0 [facility] Comment on above: Performed By: #### L 501.5200, L501.9520, L500.2500, L501.4021 #### [facility] [address] [place], [address] MCHC (RBC) [Mass/Vol] 32.7 g/dL Normal 32-36 [facility] Comment on above: Performed By: #### L 501.5200, L501.9520, L500.2500, L501.4021 #### [facility] [address] [place], [address] MCV (RBC) [Entitic vol] 90.9 fL Normal 81-99 [facility] Comment on above: Performed By: #### L 501.5200, L501.9520, L500.2500, L501.4021 #### [facility] [address] [place], [address] Monocytes/100 WBC (Bld) 7.5 % Normal 0-10 [facility] Comment on above: Performed By: #### L 501.5200, L501.9520, L500.2500, L501.4021 #### [facility] [address] [place], [address] Neutrophils/100 WBC (Bld) 65.7 % Normal 47-70 [facility] Comment on above: Performed By: #### L 501.5200, L501.9520, L500.2500, L501.4021 #### [facility] [address] [place], [address] Nucleated RBC (Bld) [#/Vol] 0 10*3/uL Normal 0-5 [facility] Comment on above: Performed By: #### L 501.5200, L501.9520, L500.2500, L501.4021 #### [facility] [address] [place], [address] Platelet mean volume (Bld) [Entitic vol] 10.1 fL Normal 6.2-12.0 [facility] Comment on above: Performed By: #### L 501.5200, L501.9520, L500.2500, L501.4021 #### [facility] [address] [place], [address] Platelets (Bld) [#/Vol] 221 10*3/uL Normal 150-450 [facility] Comment on above: Performed By: #### L 501.5200, L501.9520, L500.2500, L501.4021 #### [facility] [address] [place], [address] RBC (Bld) [#/Vol] 3.84 10*6/uL Low 4.2-5.4 [facility] Comment on above: Performed By: #### L 501.5200, L501.9520, L500.2500, L501.4021 #### [facility] [address] [place], [address] RDW SD 46.4 fl High 35.1-43.9 [facility] Comment on above: Performed By: #### L 501.5200, L501.9520, L500.2500, L501.4021 #### [facility] [address] [place], [address] WBC (Bld) [#/Vol] 9.2 10*3/uL Normal 4.4-11.0 [facility] Comment on above: Performed By: #### L 501.5200, L501.9520, L500.2500, L501.4021 #### [facility] [address] [place], [address] Absolute Neut Normal 2.0-7.7 [facility] Comment on above: Result Comment: This specimen has been REJECTED due to Laboratory criteria: Clotted. DYAN has been notified of need of recollection. 09/19/24 Valencia Dee Performed By: #### L 501.5200, L501.9520, L500.2500, L501.4021 #### [facility] [address] [place], [address] HCT Normal 37-47 [facility] Comment on above: Result Comment: This specimen has been REJECTED due to Laboratory criteria: Clotted. DYAN has been notified of need of recollection. 09/19/24443 Junior [place] Performed By: #### L 501.5200, L501.9520, L500.2500, L501.4021 #### [facility] [address] [place], [address] HGB Normal 12.0-15.0 [facility] Comment on above: Result Comment: This specimen has been REJECTED due to Laboratory criteria: Clotted. DYAN has been notified of need of recollection. 09/19/24443 Junior Luiz Performed By: #### L 501.5200, L501.9520, L500.2500, L501.4021 #### [facility] [address] [place], [address] MCH Normal 27.0-32.0 [facility] Comment on above: Result Comment: This specimen has been REJECTED due to Laboratory criteria: Clotted. DYAN has been notified of need of recollection. 09/19/24443 Junior [place] Performed By: #### L 501.5200, L501.9520, L500.2500, L501.4021 #### [facility] [address] [place], [address] MCHC Normal 32-36 [facility] Comment on above: Result Comment: This specimen has been REJECTED due to Laboratory criteria: Clotted. DYAN has been notified of need of recollection. 09/19/24443 Junior [place] Performed By: #### L 501.5200, L501.9520, L500.2500, L501.4021 #### [facility] [address] [place], [address] MCV Normal 81-99 [facility] Comment on above: Result Comment: This specimen has been REJECTED due to Laboratory criteria: Clotted. DYAN has been notified of need of recollection. 09/19/24443 Junior [place] Performed By: #### L 501.5200, L501.9520, L500.2500, L501.4021 #### [facility] [address] [place], [address] NEUT% Normal 47-70 [facility] Comment on above: Result Comment: This specimen has been REJECTED due to Laboratory criteria: Clotted. DYAN has been notified of need of recollection. 09/19/24443 Junior [place] Performed By: #### L 501.5200, L501.9520, L500.2500, L501.4021 #### [facility] [address] [place], [address] PLT Normal 150-450 [facility] Comment on above: Result Comment: This specimen has been REJECTED due to Laboratory criteria: Clotted. DYAN has been notified of need of recollection. 09/19/24443 Junior Luiz Performed By: #### L 501.5200, L501.9520, L500.2500, L501.4021 #### [facility] [address] [place], [address] RBC Normal 4.2-5.4 [facility] Comment on above: Result Comment: This specimen has been REJECTED due to Laboratory criteria: Clotted. DYAN has been notified of need of recollection. 09/19/24443 Junior Luiz Performed By: #### L 501.5200, L501.9520, L500.2500, L501.4021 #### [facility] [address] [place], [address] RDW CV Normal 11.6-14.6 [facility] Comment on above: Result Comment: This specimen has been REJECTED due to Laboratory criteria: Clotted. DYAN has been notified of need of recollection. 09/19/24443 Junior Luiz Performed By: #### L 501.5200, L501.9520, L500.2500, L501.4021 #### [facility] [address] [place], [address] RDW SD Normal 35.1-43.9 [facility] Comment on above: Result Comment: This specimen has been REJECTED due to Laboratory criteria: Clotted. ALAMMERS has been notified of need of recollection. 09/19/24 0444 Junior Luiz Performed By: #### L 501.5200, L501.9520, L500.2500, L501.4021 #### [facility] [address] [place], [address] WBC Normal 4.4-11.0 [facility] Comment on above: Result Comment: This specimen has been REJECTED due to Laboratory criteria: Clotted. ALAMMERS has been notified of need of recollection. 09/19/244 Junior [place] Performed By: #### L 501.5200, L501.9520, L500.2500, L501.4021 #### [facility] [address], [address] Carbon dioxide, total [Moles /volume] in Central venous bloodOrdered By: Chetan Nick on 09-19-2024 CO2 [Moles/Vol] 20.9 mmol/L Low 21.0-32.0 [facility] Chest 1 View (Portable)on Chest 1 View (Portable) [facility] Imaging Services [address] [place] [address] Chest 1 View (Portable) MR#: [id number] Acct: [id number] Name: KALINA RUDD Rep #: [id number] : 1940 F 84 From: Edi Ferrera MD PCP: Dr. Karen Resendiz MD Status: PRE ER Study: Chest 1 View (Portable) Date of Exam: 09/19/24 Exam# [id number] Ordering Dr: Chetan Nick DO PROCEDURE: CHEST 1 VIEW (PORTABLE) 09/19/2024 REASON FOR EXAM: CHEST PAIN TECHNIQUE: Frontal view of the chest. COMPARISON: 02/03/2024 FINDINGS: Scoliosis. Upper limits of normal heart size, possible LVH. Status post coronary artery stenting. Elevated right hemidiaphragm. No consolidation, effusion, or pneumothorax. RAD/Chest 1 View (Portable) IMPRESSION: No acute chest findings Reading Location: [place] [address] CC: Dr. Karen Resendiz MD; Chetan Nick DO Cigarette Paper Tester: Signed Normal [facility] Chloride assayOrdered By: Sue Nick on 09-19-2024 Chloride [Moles/Vol] 101 mmol/L 98-108 [facility] Emergency Department Summary on 09-19-2024 Emergency Department Summary [facility] Medical Records Department [address] [place] [address] Emergency Department Summary 09/19/24 MR#: [id number] Acct: [id number] Name: KALINA RUDD Rep #: [id number] : 1940 84 From: Chetan Nick DO [...] be brought in for evaluation [facility] Medical History History of left heart catheterization [...] Allergy Other Verified 09/19/24 03:54 Family History Father Hypertension Hx of CABG Surgical History [...] mucous membranes (more content not included)... Normal [facility] Eosinophil percentageOrdered By: Chetan Nick on 09-19-2024 Eosinophils/100 WBC (Bld) 2.4 % 0-5 [facility] Erythrocyte distribution wid th ratioOrdered By: Chetan Nick on 09-19-2024 Erythrocyte distribution width (RBC) [Ratio] 13.8 % 11.6-14.6 [facility] Erythrocyte distribution wid th standard deviationOrdered By: Chetan Nick on 09-19-2024 Erythrocyte distribution width (RBC) [Ratio] 46.4 fl High 35.1-43.9 [facility] Glomerular filtration rate ( GFR) estimation/1.73 sq m using serum, plasma, or whole bOrdered By: Chetan Nick on 09-19-2024 GFR/1.73 sq M.predicted among non-blacks MDRD (S/P/Bld) [Vol rate/Area] 46 mL/min/{1.73_m2} Low >60 [facility] Comment on above: mL/min/1.73m2 CKD-EP I Creatinine Equation (2020) Hematocrit Auto (Bld) [Volum e fraction]Ordered By: Chetan Nick on 09-19-2024 Hematocrit (Bld) [Volume fraction] 34.9 % Low 37-47 [facility] Hemoglobin measurementOrdere d By: Chetan Nick on 09-19-2024 Hemoglobin (Bld) [Mass/Vol] 11.4 g/dL Low 12.0-15.0 [facility] Immature granulocytes/100 WB C Auto (Bld)Ordered By: Chetan Nick on 09-19-2024 Immature granulocytes/100 WBC (Bld) 0.400 % 0.0-0.9 [facility] Comment on above: IG% - Immature Granu locytes (promyelocytes, myelocytes and metamyelocytes) > 1% indicates that a LEFT SHIFT is Present. L501.4021on 09-19-2024 Trop T High Sen 13 ng/L Normal <=14 [facility] Comment on above: Order Comment: REDRA W. PREVIOUS SPECIMEN REJECTED DUE TO HEMOLYSIS. 09/19/24512 Alfredo Tenorio. Performed By: #### L 501.5200, L501.9520, L500.2500, L501.4021 #### [facility] Laboratory [address] [place], [address] MCV (mean corpuscular volume ) determinationOrdered By: Chetan Nick on 09-19-2024 MCV (RBC) [Entitic vol] 90.9 fL 81-99 [facility] Magnesiumon 09-19-2024 Magnesium [Mass/Vol] 2.5 mg/dL High 1.5-2.2 [facility] Comment on above: Order Comment: REDRA W. PREVIOUS SPECIMEN REJECTED DUE TO HEMOLYSIS. 09/19/24512 Alfredo Tenorio. Performed By: #### L 501.5200, L501.9520, L500.2500, L501.4021 #### [facility] [address] [place], [address] Magnesium [Mass/Vol] 2.6 mg/dL High 1.5-2.2 [facility] Comment on above: Order Comment: ANDRY Tavarez. PREVIOUS SPECIMEN REJECTED DUE TO HEMOLYSIS. 09/19/24512 Alfredo Tenorio. Result Comment: This specimen has been REJECTED due to Laboratory criteria: Hemolyzed. HECTOR (ED) has been notified of need of recollection. 09/19/24 0512 Alfredo Tenorio Performed By: #### L 501.5200, L501.9520, L500.2500, L501.4021 #### [facility] [address] [place], [address] Magnesium measurement (mass/ volume)Ordered By: Chetan Nick on 09-19-2024 Magnesium (Unsp spec) [Mass/Vol] 2.5 mg/dL High 1.5-2.2 [facility] Mean corpuscular hemoglobin (MCH) determinationOrdered By: Chetan Nick on 09-19-2024 MCH (RBC) [Entitic mass] 29.7 pg 27.0-32.0 [facility] Mean corpuscular hemoglobin concentration (MCHC) determinationOrdered By: Chetan Nick on 09-19-2024 MCHC (RBC) [Mass/Vol] 32.7 g/dL 32-36 [facility] Mean platelet volume determi nationOrdered By: Chetan Nick on 09-19-2024 Platelet mean volume (Bld) [Entitic vol] 10.1 fL 6.2-12.0 [facility] Monocyte percentageOrdered B y: Chetan Nick on 09-19-2024 Monocytes/100 WBC (Bld) 7.5 % 0-10 [facility] Neutrophil percentageOrdered By: Chetan Nick on 09-19-2024 Neutrophils/100 WBC (Bld) 65.7 % 47-70 [facility] Nucleated red blood cell per centageOrdered By: Chetan Nick on 09-19-2024 Nucleated RBC/100 WBC (Bld) [Ratio] 0 % 0-5 [facility] Platelet countOrdered By: Sue Nick on 09-19-2024 Platelets (Bld) [#/Vol] 221 10*3/uL 150-450 [facility] Potassium measurement (mass/ volume)Ordered By: Chetan Nick on 09-19-2024 Potassium (Unsp spec) [Mass/Vol] 4.1 mmol/L 3.3-5.1 [facility] RBC Auto (Bld) [#/Vol]Ordere d By: Chetan Nick on 09-19-2024 RBC (Bld) [#/Vol] 3.84 10*6/uL Low 4.2-5.4 [facility] Serum creatinine measurement (mass/volume)Ordered By: Chetan Nick on 09-19-2024 Creatinine [Mass/Vol] 1.16 mg/dL 0.70-1.20 [facility] Serum glucose measurement (m ass/volume)Ordered By: Chetan Nick on 09-19-2024 Glucose [Mass/Vol] 124 mg/dL High 70-99 [facility] Serum or plasma calcium romeo urement (mass/volume)Ordered By: Chetan Nick on 09-19-2024 Calcium [Mass/Vol] 9.6 mg/dL 7.6-11.0 [facility] Serum or plasma urea nitroge n measurement (mass/volume)Ordered By: Chetan Nick on 09-19-2024 Urea nitrogen [Mass/Vol] 34 mg/dL High 4-19 [facility] Sodium levelOrdered By: Kelton Nick on 09-19-2024 Sodium [Moles/Vol] 136 mmol/L 133-145 [facility] TSH DL <= 0.005 mIU/L QnOrde red By: Chetan Nick on 09-19-2024 TSH Qn 3.110 uIU/mL 0.300-4.200 [facility] Thyroid Stim Hormone (TSH)on 09-19-2024 TSH 3.110 uIU/mL Normal 0.300-4.200 [facility] Comment on above: Order Comment: ANDRY Thornton PREVIOUS SPECIMEN REJECTED DUE TO HEMOLYSIS. 09/19/24 0513 Alfredo Tenorio. Performed By: #### L 501.3230, L501.6156, L500.2500, L501.4028 #### [facility] [address] [place], [address] TSH 3.340 uIU/mL Normal 0.300-4.200 [facility] Comment on above: Order Comment: ANDRY Tavarez. PREVIOUS SPECIMEN REJECTED DUE TO HEMOLYSIS. 09/19/24 05 Alfredo Tenorio. Result Comment: This specimen has been REJECTED due to Laboratory criteria: Hemolyzed. HECTOR (ED) has been notified of need of recollection. 09/19/24 0512 Alfredo Bartholomew [place]y Performed By: #### L 501.5200, L501.9520, L500.2500, L501.4021 #### [facility] [address] [place], [place], [address] Troponin T HS 2 HRon 025 Trop T High Sen 14 ng/L Normal <=14 [facility] Comment on above: Performed By: #### L 501.5200, L501.9520, L500.2500, L501.4021 #### [facility] [address] [place], [place], [address] Troponin T.cardiac [Mass/vol ume] in Serum or Plasma by High sensitivity methodOrdered By: Chetan Nick on 09-19-2024 Troponin T.cardiac High sensitivity method [Mass/Vol] 14 ng/L <14 [facility] Troponin T.cardiac High sensitivity method [Mass/Vol] 13 ng/L <14 [facility] White blood cell (WBC) count Ordered By: Chetan Nick on 09-19-2024 WBC (Bld) [#/Vol] 9.2 10*3/uL 4.4-11.0 [facility] CNOVon 09-08-2024 CNOV Office Visit (INTMWS ) -- KALINA RUDD ([id number]) 1940 F T Date Time Provider Department 09/08/24 2:00 PM NELLI REYES INTMWS During your visit today, we recorded the following information about you: Pulse Respiration Blood pressure Weight 68/minute 16/minute 128/72 58.9 kg Nelli Reyes APRN.DARREN 09/08/2024 3:36 PM Signed SUBJECTIVE Kalina Rudd is a 84 year old female here today for a check up on her medical problems. Chief Complaint Patient presents with: Recheck: Follow up, review labs. depression HPI Kalina Rudd is a 84-year-old female, with a history of HI and recent bereavement, presenting with fatigue, weight [...] her diet. Kalina has a history of HI in January, for which she had three stents placed. She reports not feeling well since the HI and has an upcoming echocardiogram scheduled for [...] a half later. She reports that her masonry installer noted elevated thyroid levels and suggested that treatment might improve her energy levels. She also reports that her masonry installer noted signs of depression, anxiety, and dehydration. Kalina reports a history of anxiety and describes herself as a worrier. She has not sought counseling but mentions that her masonry installer recommended it. She has a son in [place] with whom she had a recent disagreement, leading to feelings of isolation. She has another son and a grandson locally, with whom she maintains regular contact. She expresses feelings of sadness and depression, stating, I'm so depressed, it's awful. Recording using Sonoma software for draft documentation of the visit was discussed with the patient/authorized bilingual sales representative; all questions welcomed and answered. Patient/authorized bilingual sales representative agreed to proceed Her medications were [...] vaginitis. Two to three times a week. [employer] [facility] probiotics--Yeast and Vaginal PH support [...] PROBLEM LIST (more content not included)... Normal [facility] Absolute lymphocyte countOrd ered By: Joanne Apple on 09-07-2024 Lymphocytes Auto (Unsp spec) [#/Vol] 2.46 10*3/uL 0.83-4.51 [facility] Absolute neutrophil countOrd ered By: Joanne Apple on 09-07-2024 Neutrophils (Bld) [#/Vol] 6.3 10*3/uL 2.0-7.7 [facility] Anion gap in Serum or Plasma Ordered By: Joanne Apple on 09-07-2024 Anion gap [Moles/Vol] 14 mmol/L 5-15 [facility] Automated lymphocyte count a s percentage of total leukocytesOrdered By: Joanne Apple on 09-07-2024 Lymphocytes/100 WBC Auto (Unsp spec) 25.5 % 19-41 [facility] BUN/creatinine ratioOrdered By: Joanne Apple on 09-07-2024 Urea nitrogen/Creatinine [Mass ratio] 19.9 mg/mg 10-20 [facility] Basic Metabolic Profile (BMP )on 09-07-2024 BUN/CRE 19.9 RATIO Normal - [facility] Comment on above: Performed By: #### L 501.5200, L501.9520, L500.2500, L501.4021 #### [facility] [address] [place], [address] Calcium [Mass/Vol] 10.3 mg/dL Normal 7.6-11.0 [facility] Comment on above: Performed By: #### L 501.5200, L501.9520, L500.2500, L501.4021 #### [facility] [address] [place], [address] Chloride [Moles/Vol] 103 mmol/L Normal 98-108 [facility] Comment on above: Performed By: #### L 501.5200, L501.9520, L500.2500, L501.4021 #### [facility] [address] [place], [address] CO2 [Moles/Vol] 21.1 mmol/L Normal 21.0-32.0 [facility] Comment on above: Performed By: #### L 501.5200, L501.9520, L500.2500, L501.4021 #### [facility] [address] [place], [address] Creatinine [Mass/Vol] 1.41 mg/dL High 0.70-1.20 [facility] Comment on above: Performed By: #### L 501.5200, L501.9520, L500.2500, L501.4021 #### [facility] [address] [place], [address] GAP 14 Normal 5-15 [facility] Comment on above: Performed By: #### L 501.5200, L501.9520, L500.2500, L501.4021 #### [facility] [address] [place], [address] GFR/1.73 sq M.predicted among non-blacks MDRD (S/P/Bld) [Vol rate/Area] 37 mL/min/{1.73_m2} Low >60 [facility] Comment on above: Result Comment: mL/m in/1.73m2 CKD-EPI Creatinine Equation (2020) Performed By: #### L 501.5200, L501.9520, L500.2500, L501.4021 #### [facility] [address] [place], [address] Glucose [Mass/Vol] 120 mg/dL High 70-99 [facility] Comment on above: Performed By: #### L 501.5200, L501.9520, L500.2500, L501.4021 #### [facility] [address] [place], [address] Potassium [Moles/Vol] 4.9 mmol/L Normal 3.3-5.1 [facility] Comment on above: Performed By: #### L 501.5200, L501.9520, L500.2500, L501.4021 #### [facility] [address] [place], [address] Sodium [Moles/Vol] 138 mmol/L Normal 133-145 [facility] Comment on above: Performed By: #### L 501.5200, L501.9520, L500.2500, L501.4021 #### [facility] [address] [place], [address] Urea nitrogen [Mass/Vol] 28 mg/dL High 4-19 [facility] Comment on above: Performed By: #### L 501.5200, L501.9520, L500.2500, L501.4021 #### [facility] [address] [place], [address] Basophil percentageOrdered B y: Joanne Apple on 09-07-2024 Basophils/100 WBC (Bld) 0.5 % 0-1 [facility] CBC W/Diff, Automatedon 08-11 Absolute Lymph 2.46 X10 3/uL Normal 0.83-4.51 [facility] Comment on above: Performed By: #### L 501.5200, L501.9520, L500.2500, L501.4021 #### [facility] [address] [place], [address] Absolute Neut 6.3 X10 3/uL Normal 2.0-7.7 [facility] Comment on above: Performed By: #### L 501.5200, L501.9520, L500.2500, L501.4021 #### [facility] [address] [place], [address] Basophils/100 WBC (Bld) 0.5 % Normal 0-1 [facility] Comment on above: Performed By: #### L 501.5200, L501.9520, L500.2500, L501.4021 #### [facility] [address] [place], [address] Eosinophils/100 WBC (Bld) 1.8 % Normal 0-5 [facility] Comment on above: Performed By: #### L 501.5200, L501.9520, L500.2500, L501.4021 #### [facility] [address] [place], [address] Erythrocyte distribution width (RBC) [Ratio] 13.4 % Normal 11.6-14.6 [facility] Comment on above: Performed By: #### L 501.5200, L501.9520, L500.2500, L501.4021 #### [facility] [address] [place], [address] Hematocrit (Bld) [Volume fraction] 42.4 % Normal 37-47 [facility] Comment on above: Performed By: #### L 501.5200, L501.9520, L500.2500, L501.4021 #### [facility] [address] [place], [address] Hemoglobin (Bld) [Mass/Vol] 13.9 g/dL Normal 12.0-15.0 [facility] Comment on above: Performed By: #### L 501.5200, L501.9520, L500.2500, L501.4021 #### [facility] [address] [place], [address] IG% 0.300 Normal 0.0-0.9 [facility] Comment on above: Result Comment: IG% - Immature Granulocytes (promyelocytes, myelocytes and metamyelocytes) > 1% indicates that a LEFT SHIFT is Present. Performed By: #### L 501.5200, L501.9520, L500.2500, L501.4021 #### [facility] [address] [place], [address] Lymphocytes/100 WBC (Bld) 25.5 % Normal 19-41 [facility] Comment on above: Performed By: #### L 501.5200, L501.9520, L500.2500, L501.4021 #### [facility] [address] [place], [address] MCH (RBC) [Entitic mass] 29.8 pg Normal 27.0-32.0 [facility] Comment on above: Performed By: #### L 501.5200, L501.9520, L500.2500, L501.4021 #### [facility] [address] [place], [address] MCHC (RBC) [Mass/Vol] 32.8 g/dL Normal 32-36 [facility] Comment on above: Performed By: #### L 501.5200, L501.9520, L500.2500, L501.4021 #### [facility] [address] [place], [address] MCV (RBC) [Entitic vol] 91.0 fL Normal 81-99 [facility] Comment on above: Performed By: #### L 501.5200, L501.9520, L500.2500, L501.4021 #### [facility] [address] [place], [address] Monocytes/100 WBC (Bld) 6.9 % Normal 0-10 [facility] Comment on above: Performed By: #### L 501.5200, L501.9520, L500.2500, L501.4021 #### [facility] [address] [place], [address] Neutrophils/100 WBC (Bld) 65.0 % Normal 47-70 [facility] Comment on above: Performed By: #### L 501.5200, L501.9520, L500.2500, L501.4021 #### [facility] [address] [place], [address] Nucleated RBC (Bld) [#/Vol] 0 10*3/uL Normal 0-5 [facility] Comment on above: Performed By: #### L 501.5200, L501.9520, L500.2500, L501.4021 #### [facility] [address] [place], [address] Platelet mean volume (Bld) [Entitic vol] 10.1 fL Normal 6.2-12.0 [facility] Comment on above: Performed By: #### L 501.5200, L501.9520, L500.2500, L501.4021 #### [facility] [address] [place], [address] Platelets (Bld) [#/Vol] 299 10*3/uL Normal 150-450 [facility] Comment on above: Performed By: #### L 501.5200, L501.9520, L500.2500, L501.4021 #### [facility] [address] [place], [address] RBC (Bld) [#/Vol] 4.66 10*6/uL Normal 4.2-5.4 [facility] Comment on above: Performed By: #### L 501.5200, L501.9520, L500.2500, L501.4021 #### [facility] [address] [place], [address] RDW SD 45.6 fl High 35.1-43.9 [facility] Comment on above: Performed By: #### L 501.5200, L501.9520, L500.2500, L501.4021 #### [facility] [address] [place], [address] WBC (Bld) [#/Vol] 9.7 10*3/uL Normal 4.4-11.0 [facility] Comment on above: Performed By: #### L 501.5200, L501.9520, L500.2500, L501.4021 #### [facility] [address] [place], [address] Carbon dioxide, total [Moles /volume] in Central venous bloodOrdered By: Joanne Apple on 09-07-2024 CO2 [Moles/Vol] 21.1 mmol/L 21.0-32.0 [facility] Cardiology Visit Reporton Cardiology Visit Report [facility] [address] [place] [address] OFFICE VISIT Date of Service: 09/07/24 MR#: [id number] Acct: [id number] Name: KALINA RUDD Rep #: [id number] : 1940 Provider: MEG Hernandez rts Age/Sex: 84/F Location: [facility] Status: Signed HPI HPI History of Present Illness Details: This is a 84-year-old white female who presents to the office today for a cardiovascular follow-up visit. The patient originally presented [facility] with a STEMI on 01/19/2024 and she is underwent emergent left heart catheterization and was life lighted to [place] for emergent percutaneous revascularization due to the complex nature of her anatomy. She received an LAD stent a bifurcating circumflex OM stent in the residual diagonal branch with 70% stenosis was treated medically. Her ejection fraction the day after was found to be 55-60%. Following discharge the patient returns the emergency department on 2 separate occasions once at [place] and once at [facility] with a hypertensive urgency. Her [...] Monitor Intake Visit Reasons: See clinical notes L.LJayjay (KR approved) Structural Steel Fitter Required: No Accompanied by: Self Is patient [...] Muscle ache (more content not included)... Normal [facility] Chloride assayOrdered By: Keegan Apple on 09-07-2024 Chloride [Moles/Vol] 103 mmol/L 98-108 [facility] Eosinophil percentageOrdered By: Joanne Apple on 09-07-2024 Eosinophils/100 WBC (Bld) 1.8 % 0-5 [facility] Erythrocyte distribution wid th ratioOrdered By: Joanne Apple on 09-07-2024 Erythrocyte distribution width (RBC) [Ratio] 13.4 % 11.6-14.6 [facility] Erythrocyte distribution wid th standard deviationOrdered By: Joanne Apple on 09-07-2024 Erythrocyte distribution width (RBC) [Ratio] 45.6 fl High 35.1-43.9 [facility] Glomerular filtration rate ( GFR) estimation/1.73 sq m using serum, plasma, or whole bOrdered By: Joanne Apple on 09-07-2024 GFR/1.73 sq M.predicted among non-blacks MDRD (S/P/Bld) [Vol rate/Area] 37 mL/min/{1.73_m2} Low >60 [facility] Comment on above: mL/min/1.73m2 CKD-EP I Creatinine Equation (2020) Hematocrit Auto (Bld) [Volum e fraction]Ordered By: Joanne Apple on 09-07-2024 Hematocrit (Bld) [Volume fraction] 42.4 % 37-47 [facility] Hemoglobin measurementOrdere d By: Joanne Apple on 09-07-2024 Hemoglobin (Bld) [Mass/Vol] 13.9 g/dL 12.0-15.0 [facility] Immature granulocytes/100 WB C Auto (Bld)Ordered By: Joanne Apple on 09-07-2024 Immature granulocytes/100 WBC (Bld) 0.300 % 0.0-0.9 [facility] Comment on above: IG% - Immature Granu locytes (promyelocytes, myelocytes and metamyelocytes) > 1% indicates that a LEFT SHIFT is Present. MCV (mean corpuscular volume ) determinationOrdered By: Joanne Apple on 09-07-2024 MCV (RBC) [Entitic vol] 91.0 fL 81-99 [facility] Mean corpuscular hemoglobin (MCH) determinationOrdered By: Joanne Apple on 09-07-2024 MCH (RBC) [Entitic mass] 29.8 pg 27.0-32.0 [facility] Mean corpuscular hemoglobin concentration (MCHC) determinationOrdered By: Joanne Apple on 09-07-2024 MCHC (RBC) [Mass/Vol] 32.8 g/dL 32-36 [facility] Mean platelet volume determi nationOrdered By: Joanne Apple on 09-07-2024 Platelet mean volume (Bld) [Entitic vol] 10.1 fL 6.2-12.0 [facility] Monocyte percentageOrdered B y: Joanne Apple on 09-07-2024 Monocytes/100 WBC (Bld) 6.9 % 0-10 [facility] Natriuretic peptide.B prohor cheryl N-Terminal [Mass/volume] in Serum or PlasmaOrdered By: Joanne Apple on 09-07-2024 Natriuretic peptide.B prohormone N-Terminal [Mass/Vol] 258 pg/mL <1800 [facility] Comment on above: Heart Failure Unlike ly: < 300 pg/mLHeart Failure Likely< 50 Years: > 450 pg/mL50-75 Years: > 900 pg/mL>75 Years: > 1800 pg/mL Neutrophil percentageOrdered By: Joanne Apple on 09-07-2024 Neutrophils/100 WBC (Bld) 65.0 % 47-70 [facility] Nucleated red blood cell per centageOrdered By: Joanne Apple on 09-07-2024 Nucleated RBC/100 WBC (Bld) [Ratio] 0 % 0-5 [facility] Platelet countOrdered By: Keegan Apple on 09-07-2024 Platelets (Bld) [#/Vol] 299 10*3/uL 150-450 [facility] Potassium measurement (mass/ volume)Ordered By: Joanne Apple on 09-07-2024 Potassium (Unsp spec) [Mass/Vol] 4.9 mmol/L 3.3-5.1 [facility] Pro- Brain NATRIURETIC PEPTI David 09-07-2024 Natriuretic peptide B (Bld) [Mass/Vol] 258 pg/mL Normal <=1800 [facility] Comment on above: Result Comment: Hear t Failure Unlikely: < 300 pg/mL Heart Failure Likely < 50 Years: > 450 pg/mL 50-75 Years: > 900 pg/mL >75 Years: > 1800 pg/mL Performed By: #### L 501.5200, L501.9520, L500.2500, L501.4021 #### [facility] [address] [place] [address], [id number] RBC Auto (Bld) [#/Vol]Ordere d By: Joanne Apple on 09-07-2024 RBC (Bld) [#/Vol] 4.66 10*6/uL 4.2-5.4 [facility] Serum creatinine measurement (mass/volume)Ordered By: Joanne Apple on 09-07-2024 Creatinine [Mass/Vol] 1.41 mg/dL High 0.70-1.20 [facility] Serum glucose measurement (m ass/volume)Ordered By: Joanne Apple on 09-07-2024 Glucose [Mass/Vol] 120 mg/dL High 70-99 [facility] Serum or plasma calcium romeo urement (mass/volume)Ordered By: Joanne Apple on 09-07-2024 Calcium [Mass/Vol] 10.3 mg/dL 7.6-11.0 [facility] Serum or plasma urea nitroge n measurement (mass/volume)Ordered By: Joanne Apple on 09-07-2024 Urea nitrogen [Mass/Vol] 28 mg/dL High 4-19 [facility] Sodium levelOrdered By: uSzie Apple on 09-07-2024 Sodium [Moles/Vol] 138 mmol/L 133-145 [facility] TSH DL <= 0.005 mIU/L QnOrde red By: Joanne Apple on 09-07-2024 TSH Qn 4.350 uIU/mL High 0.300-4.200 [facility] Thyroid Stim Hormone (TSH)on 09-07-2024 TSH 4.350 uIU/mL High 0.300-4.200 [facility] Comment on above: Performed By: #### L 501.5200, L501.9520, L500.2500, L501.4021 #### [facility] [address] [place], [address] White blood cell (WBC) count Ordered By: Joanne Apple on 09-07-2024 WBC (Bld) [#/Vol] 9.7 10*3/uL 4.4-11.0 [facility] CNOVon 06-30-2024 CNOV Office Visit (INTMWS ) -- KALINA RUDD ([id number]) 1940 F T Date Time Provider Department 06/30/24 4:00 PM KAREN RESENDIZ INTMWS During your visit today, we recorded the following information about you: Temperature Pulse Blood pressure 98.2 degrees 74/minute 122/62 Karen Resendiz MD 07/19/2024 1:01 AM Signed This note was created using SpectraLinearriter. Subjective Kalina Rudd is a 84 year [...] is currently under the care of a masonry installer and reports stable cardiac status, with her [...] Osteoporosis, unspecified STEMI (ST elevation myocardial infarction) ([facility]) 01/19/2024 Current Outpatient Medications Medication Sig albuterol [...] three times a week. [employer] [facility] probiotics--Yeast and Vaginal PH support [...] at nig (more content not included)... Normal [facility] CNOVon 05-11-2024 CNOV Office Visit (INTMWS ) -- KALINA RUDD ([id number]) 1940 F T Date Time Provider Department 05/11/24 1:20 PM KAREN RESENDIZ INTMWS During your visit today, we recorded the following information about you: Pulse Respiration Blood pressure Weight 80/minute 16/minute 122/58 63.5 kg Height 1.53 m Karen Resendiz MD 05/11/2024 2:34 PM Signed Kalinasachin Rudd is a 83 year old female [...] The patient consented to the use of Sonoma software for draft documentation of the visit consistent with [facility]?s Notice of Privacy Practices. Kalina is a 83-year-old female with a history of HI, HTN, and eczema, presenting for a Medicare Annual Wellness Visit. Kalina reports right hip pain that occurs when standing up and walking, but is alleviated by straightening the leg before walking. The pain is located in the anterior groin and buttocks. 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 She finds [...] amlodipine and has not yet contacted her masonry installer about reducing the dose. She also reports [...] has not seen her dentist since her HI, but plans to schedule an appointment. She [...] 27.13 kg/m? (more content not included)... Normal [facility] 12 Lead EKG performed by [facility] [place] 04-14-2024 12 Lead EKG performed by [address] [address] 12 Lead EKG performed by [facility] 04/14/24 1308 MR#: [id number] Acct: [id number] Name: KALINA RUDD Rep #: [id number] : 1940 83 From: Tessie Doe Attending Dr: MARCUS Antoine Status: DEP AMB Ordering Dr: Tessie Apple Date: 07/04 [place]: [facility] Sex: F C Admitted: [facility]12 Lead EKG performed by [facility] ECG Report Interpretation Sinus Rhythm Low voltage in precordial leads. -Poor R-wave progression -may be secondary to pulmonary disease consider old anterior infarct. ABNORMAL Electronically signed on 04/15/2024 at 08:15 by Valdemar Kimble Software Version [id number] 04/15/24 0818 Date Tessie VELAZQUEZ CC: Dr. Karen Resendiz MD Date Dictated: 04/14/24 1308 Date Transcribed: 04/14/241307 Cigarette Paper Tester: YESENIA Signed Normal [facility] Cardiology Visit Reporton Cardiology Visit Report [facility] [address] [place] [address] OFFICE VISIT Date of Service: 04/14/24 MR#: [id number] Acct: [id number] Name: KALINA RUDD Rep #: [id number] : 1940 Provider: MARCUS Allen Age/Sex: 83/F Location: [facility] Status: Signed HPI HPI History of Present Illness Details: Patient comes in is a 83-year-old white female for monitoring for cardiovascular status. The patient originally presented [facility] with a STEMI on 01/19/2024 and she is underwent emergent left heart catheterization and was life lighted to [place] for emergent percutaneous revascularization due to the complex nature of her anatomy. She received an LAD stent a bifurcating circumflex OM stent in the residual diagonal branch with 70% stenosis was treated medically. Her ejection fraction the day after was found to be 55-60%. Following discharge the patient returns the emergency department on 2 separate occasions once at [place] and once at [facility] with a hypertensive urgency. Her medications were adjusted which she remains extremely confused about. The patient carries a longstanding history of fibromyalgia which is chronic back discomfort. She also has left shoulder pain. She does not remember what her symptoms felt like when she presented with her STEMI. She had she was seen in the [place] cardiology office and is confused about [...] Intake Visit Reasons: 2 M FU PER Structural Steel Fitter Required: No Is patient in pain?: No [...] to call with updated list of medications [facility] Medical History (Updated 04/14/24 @ 13:10 by [...] walking: None (more content not included)... Normal [facility] 12 Lead EKG performed by [facility] on 03-26-2024 12 Lead EKG performed by [id number] [place] [address] 12 Lead EKG performed by [facility] 03/26/24 1019 MR#: [id number] Acct: [id number] Name: KALINA RUDD Rep #: [id number] : 1940 83 From: Joel Reynolds NP BUMPER OPERATOR-C Attending Dr: MEG Marie Status: DEP AMB Ordering Dr: Joel Reynolds NP BUMPER OPERATOR-C Date: 03/26/24 Location: [facility] Sex: F C Admitted: [facility]12 Lead EKG performed by [facility] ECG Report Interpretation Sinus Rhythm with Sinus Arrhythmia-Poor R-wave progression -nonspecific -consider old anterior infarct. BORDERLINEElectronically signed on 03/29/2024 at 09:[address] Kenny Chaudhary Software Version 8610 03/29/24 0952 Date Joel WEAVER CC: Dr. Karen Resendiz MD Date Dictated: 03/26/24 1019 Date Transcribed: 03/26/24 101 Cigarette Paper Tester: BLAINE Signed Normal [facility] Cardiology Visit Reporton Cardiology Visit Report [facility] [address] [place] [address] OFFICE VISIT Date of Service: 03/26/24 MR#: [id number] Acct: [id number] Name: KALINA RUDD Rep #: [id number] : 1940 Provider: MEG moran Age/Sex: 83/F Location: [facility] Status: Signed HPI HPI History of Present Illness Details: Patient comes in is a 83-year-old white female for monitoring for cardiovascular status. The patient originally presented [facility] with a STEMI on 01/19/2024 and she is underwent emergent left heart catheterization and was life lighted to [place] for emergent percutaneous revascularization due to the complex nature of her anatomy. She received an LAD stent a bifurcating circumflex OM stent in the residual diagonal branch with 70% stenosis was treated medically. Her ejection fraction the day after was found to be 55-60%. Following discharge the patient returns the emergency department on 2 separate occasions once at [place] and once at [facility] with a hypertensive urgency. Her medications were adjusted which she remains extremely confused about. The patient carries a longstanding history of fibromyalgia which is chronic back discomfort. She also has left shoulder pain. She does not remember what her symptoms felt like when she presented with her STEMI. She had she was seen in the [place] cardiology office and is confused about [...] mo f/u for meds per Dr. Good Structural Steel Fitter Required: No Accompanied by: Is patient in [...] (3 wks ago at home. no injury.) [facility] Medical History History of left heart catheterization [...] loss Eyes (more content not included)... [facility] 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 Miscellaneous Medical Supply [facility] probiotics--Yeast and Vaginal PH support [...] sounds: Examinati (more content not included)... Normal [facility] XR CHEST 2V FRONTAL/LATon XR CHEST [...] degenerative change. IMPRESSION: No acute radiographic abnormality. Cigarette Paper Tester: [facility] Transcribe Date/Time: Mar 12 2024 5:06P Dictated by : ANDREW ROBERTSON MD This examination was interpreted and the report reviewed and electronically signed by: ANDREW ROBERTSON MD on Mar 12 2024 5:10PM EST [id number] Normal [facility] XR Chest PA and Lateralon IMPRESSION: No acute radiographic abnormality. Cigarette Paper Tester: [facility] Transcribe Date/Time: Mar 12 2024 5:06P Dictated by : ANDREW ROEBRTSON MD This examination was interpreted and the [...] Multilevel degenerative change. DIVISION OF RADIOLOGY Provider, [facility] - 03/12/2024 * * *Final Report* [...] change. IMPRESSION IMPRESSION: No acute radiographic abnormality. Cigarette Paper Tester: PSCB Transcribe Date/Time: Mar 12 2024 5:06P Dictated by : ANDREW ROBERTSON MD This examination was interpreted and the report reviewed and electronically signed by: ANDREW ROBERTSON MD on Mar 12 2024 5:10PM EST [facility] Radiology Study observation (narrative) [facility] XR Chest PA and LateralOrder ed By: [facility] Provider on 03-12-2024 [facility] Cardiology Visit Reporton Cardiology Visit Report [facility] [address] [place] [address] OFFICE VISIT Date of Service: 02/20/24 MR#: [id number] Acct: [id number] Name: KALINA RUDD Rep #: [id number] : 1940 Provider: Dr. Kenny tracy MD Age/Sex: 83/F [place] [facility] Status: Signed HPI HPI History of Present Illness Details: Patient comes in is a 83-year-old white female for monitoring for cardiovascular status. The patient originally presented [facility] with a STEMI on 01/19/2024 and she is underwent emergent left heart catheterization and was life lighted to [place] for emergent percutaneous revascularization due to the complex nature of her anatomy. She received an LAD stent a bifurcating circumflex OM stent in the residual diagonal branch with 70% stenosis was treated medically. Her ejection fraction the day after was found to be 55-60%. Following discharge the patient returns the emergency department on 2 separate occasions once at [place] and once at [facility] with a hypertensive urgency. Her [...] She had she was seen in the [place] cardiology office and is confused about [...] Method room air Intake Visit Reasons: S/P [place] STEMI 01/18 Structural Steel Fitter Required: No Accompanied by: Is patient in [...] with ac (more content not included)... [facility] Visit (INTMWS ) -- KALINA RUDD ([id number]) 1940 F CHT Date Time Provider Department [...] visit. HPI Patient presents with: Hospital F/U: [place] x 2 hospital visits SUBJECTIVE: Kalina [...] and stent placements, she was transferred to [facility] for further evaluation. Upon arrival to [...] 83-year-old female with a history of recent HI and stent placement, presenting for follow-up after two recent hospital admissions. Kalina reports experiencing back and chest pain following two recent hospital admissions for an HI, during which three stents were placed. She [...] Kalina has a follow-up appointment with her masonry installer on February 17, but she plans to switch to a local masonry installer due to insurance coverage issues. She expresses [...] benign Generalize (more content not included)... Normal [facility] .Auto Diffon 01-26-2024 Basophil, Absolute 0.0 10 3/mcL Normal 0.0-0.3 [facility] Comment on above: Performed By: #### A DIFF, CBC, GFR, ANEU, BMP, MG #### [address] [address] Basophils/100 WBC (Bld) 0.7 % Normal 0.0-2.5 [facility] Comment on above: Performed By: #### A DIFF, CBC, GFR, ANEU, BMP, MG #### [address] [address] Eosinophil, Absolute 0.2 10 3/mcL Normal 0.0-0.7 [facility] Comment on above: Performed By: #### A DIFF, CBC, GFR, ANEU, BMP, MG #### [address] [address] Eosinophils/100 WBC (Bld) 3.5 % Normal 0.0-6.0 [facility] Comment on above: Performed By: #### A DIFF, CBC, GFR, ANEU, BMP, MG #### [address] [address] Lymphocyte, Absolute 2.0 10 3/mcL Normal 0.9-4.3 [facility] Comment on above: Performed By: #### A DIFF, CBC, GFR, ANEU, BMP, MG #### [address] [address] Lymphocytes/100 WBC (Bld) 30.6 % Normal 20.0-40.0 [facility] Comment on above: Performed By: #### A DIFF, CBC, GFR, ANEU, BMP, MG #### [address] [address] Monocyte, Absolute 0.5 10 3/mcL Normal 0.1-1.4 [facility] Comment on above: Performed By: #### A DIFF, CBC, GFR, ANEU, BMP, MG #### [address] [address] Monocytes/100 WBC (Bld) 7.9 % Normal 2.0-13.0 [facility] Comment on above: Performed By: #### A DIFF, CBC, GFR, ANEU, BMP, MG #### [address] [address] Neutrophils/100 WBC (Bld) 57.3 % Normal 50.0-75.0 [facility] Comment on above: Performed By: #### A DIFF, CBC, GFR, ANEU, BMP, MG #### [address] [address] .GFRon 01-26-2024 GFR >60 Normal [facility] Comment on above: Result Comment: [...] DIFF, CBC, GFR, ANEU, BMP, MG #### [address] [address] GFR Non- 55 ml/min/1.73sqm [facility] Comment on above: Result Comment: [...] DIFF, CBC, GFR, ANEU, BMP, MG #### [address] [address] .NEUABSon 01-26-2024 Neutrophil, Absolute 3.7 10 3/mcL Normal 2.3-8.1 [facility] Comment on above: Performed By: #### A DIFF, CBC, GFR, ANEU, BMP, MG #### [address] [address] BMPon 01-26-2024 BUN/Creatinine Ratio 18.6 ratio Normal 10.0-22.0 [facility] Comment on above: Performed By: #### A DIFF, CBC, GFR, ANEU, BMP, MG #### [place] [address] Calcium [Mass/Vol] 9.2 mg/dL Normal 8.7-10.4 [facility] Comment on above: Performed By: #### A DIFF, CBC, GFR, ANEU, BMP, MG #### [place] [address] Chloride [Moles/Vol] 110 mmol/L Normal 98-110 [facility] Comment on above: Performed By: #### A DIFF, CBC, GFR, ANEU, BMP, MG #### [place] [address] CO2 [Moles/Vol] 24 mmol/L Normal 22-32 [facility] Comment on above: Performed By: #### A DIFF, CBC, GFR, ANEU, BMP, MG #### [place] [address] Creatinine [Mass/Vol] 0.97 mg/dL Normal 0.50-1.20 [facility] Comment on above: Result Comment: Test ing performed on [employer] analyzer using enzymatic creatinine methodology. Performed By: #### A DIFF, CBC, GFR, ANEU, BMP, MG #### [place] [address] Electrolyte Balance 6.0 mEq/L Normal 4.0-15.[address] [facility] Comment on above: Performed By: #### A DIFF, CBC, GFR, ANEU, BMP, MG #### [address] [address] Glucose [Mass/Vol] 98 mg/dL Normal 82-115 [facility] Comment on above: Performed By: #### A DIFF, CBC, GFR, ANEU, BMP, MG #### [address] [address] Potassium [Moles/Vol] 4.2 mmol/L Normal 3.5-5.0 [facility] Comment on above: Performed By: #### A DIFF, CBC, GFR, ANEU, BMP, MG #### [address] [address] Sodium [Moles/Vol] 140 mmol/L Normal 136-145 [facility] Comment on above: Performed By: #### A DIFF, CBC, GFR, ANEU, BMP, MG #### [address] [address] Urea nitrogen [Mass/Vol] 18.0 mg/dL Normal 8.0-22.0 [facility] Comment on above: Performed By: #### A DIFF, CBC, GFR, ANEU, BMP, MG #### [address] [address] BNP,B-Type NATRIURETIC PEPTI David 01-26-2024 Natriuretic peptide B (Bld) [Mass/Vol] 177.2 pg/mL High 0-100 [facility] Comment on above: Performed By: #### L 501.5200, L501.9520, L500.2500, L501.4021 #### [facility] [address] [place], [place], [id number] [facility] Erythrocyte distribution width (RBC) [Ratio] 13.6 % Normal 11.5-15.5 [facility] Comment on above: Performed By: #### A DIFF, CBC, GFR, ANEU, BMP, MG #### [address] [address] Hematocrit (Bld) [Volume fraction] 35.3 % Normal 34.0-46.0 [facility] Comment on above: Performed By: #### A DIFF, CBC, GFR, ANEU, BMP, MG #### [address] [address] Hgb 12.0 G/dL Normal 12.0-16.0 [facility] Comment on above: Performed By: #### A DIFF, CBC, GFR, ANEU, BMP, MG #### [place] [address] MCH (RBC) [Entitic mass] 31.1 pg Normal 27.0-33.0 [facility] Comment on above: Performed By: #### A DIFF, CBC, GFR, ANEU, BMP, MG #### [place] [address] MCHC 33.9 G/dL Normal 32.0-36.0 [facility] Comment on above: Performed By: #### A DIFF, CBC, GFR, ANEU, BMP, MG #### [place] [address] MCV (RBC) [Entitic vol] 91.7 fL Normal 80.0-99.0 [facility] Comment on above: Performed By: #### A DIFF, CBC, GFR, ANEU, BMP, MG #### [place] [address] Platelet 307 10 3/mcL Normal 150-450 [facility] Comment on above: Performed By: #### A DIFF, CBC, GFR, ANEU, BMP, MG #### [place] [address] Platelet mean volume (Bld) [Entitic vol] 7.8 fL Normal 6.6-10.5 [facility] Comment on above: Performed By: #### A DIFF, CBC, GFR, ANEU, BMP, MG #### [place] [address] RBC 3.85 10 6/mcL Low 4.10-5.30 [facility] Comment on above: Performed By: #### A DIFF, CBC, GFR, ANEU, BMP, MG #### [place] [id number] WBC 6.5 10 3/mcL Normal 4.5-10.8 [facility] Comment on above: Performed By: #### A DIFF, CBC, GFR, ANEU, BMP, MG #### [place] [id number] [address] [place] [address] LABORATORYOrdered By: SYSTEM SYSTEM on 01-26-2024 Basophils [...] above: Interpretive Data: T esting performed on [employer] analyzer using enzymatic creatinine methodology. Electrolyte Balance [...] 2.0 103/mcL Normal 0.9 - 4.3 10^3/mcL AH Workflow SS Lymphocytes/100 WBC (Bld) 30.6 % [...] 57.3 % Normal 50.0 - 75.0 % Workflow SS Platelet mean volume (Bld) [Entitic vol] 7.8 fL Normal 6.6 - 10.5 fL Workflow SS Platelets (Bld) [#/Vol] 307 103/mcL Normal 150 - 450 10^3/mcL AH Workflow SS Potassium [Moles/Vol] 4.2 mmol/L Normal 3.5 - 5.0 mEq/L ADM SS RBC (Bld) [#/Vol] 3.85 106/mcL Low 4.10 - 5.3 0 10^6/mcL Workflow SS Sodium [Moles/Vol] 140 mmol/L Normal 136 - 145 mEq/L ADM SS Urea nitrogen [Mass/Vol] 18.0 mg/dL Normal 8.0 - 22.0 mg/dL ADM SS Urea nitrogen/Creatinine [Mass ratio] 18.6 ratio Normal 10.0 - 22.0 ratio ADM SS WBC (Bld) [#/Vol] 6.5 103/mcL Normal 4.5 - 10.8 10^3/mcL Workflow SS LABORATORYOrdered By: Nenita Luna on 01-26-2024 Cholesterol [Mass/Vol] 119 mg/dL Normal 50 - 199 mg/dL [facility] Comment on above: Interpretive Data: C holesterol Reference Interval: Less than 200 Desirable 200-239 Borderline high risk 240 and above High risk Cholesterol in HDL [Mass/Vol] 40 mg/dL Normal 40 - 59 mg/dL ADM SS Cholesterol in LDL [Mass/Vol] 59 mg/dL Normal 0 - 129 mg/dL ADM SS Triglyceride [Mass/Vol] 99 mg/dL Normal 3 - 149 mg/dL [facility] SS LIPIDon 01-26-2024 Cholesterol [Mass/Vol] 119 mg/dL Normal 50-199 [facility] Comment on above: Result Comment: Chol esterol Reference Interval: Less than 200 Desirable 200-239 Borderline high risk 240 and above High risk Performed By: #### A DIFF, CBC, GFR, ANEU, BMP, MG #### [address] [address] Cholesterol in HDL [Mass/Vol] 40 mg/dL Normal 40-59 [facility] Comment on above: Performed By: #### A DIFF, CBC, GFR, ANEU, BMP, MG #### [address] [address] Cholesterol in LDL [Mass/Vol] 59 mg/dL Normal 0-129 [facility] Comment on above: Performed By: #### A DIFF, CBC, GFR, ANEU, BMP, MG #### [address] [address] Triglyceride [Mass/Vol] 99 mg/dL Normal 3-149 [facility] Comment on above: Performed By: #### A DIFF, CBC, GFR, ANEU, BMP, MG #### [address] [address] MGon 01-26-2024 Magnesium [Mass/Vol] 2.0 mg/dL Normal 1.6-2.4 [facility] Comment on above: Performed By: #### A DIFF, CBC, GFR, ANEU, BMP, MG #### [address] [address] .Auto Diffon 01-25-2024 Basophil, Absolute 0.0 10 3/mcL Normal 0.0-0.3 [facility] Comment on above: Performed By: #### M G, CMP, GFR, CBC, PBNP, ANEU, ADIFF, TSH, TROPHS #### [address] [address] Basophils/100 WBC (Bld) 0.6 % Normal 0.0-2.5 [facility] Comment on above: Performed By: #### M G, CMP, GFR, CBC, PBNP, ANEU, ADIFF, TSH, TROPHS #### [address] [address] Eosinophil, Absolute 0.1 10 3/mcL Normal 0.0-0.7 [facility] Comment on above: Performed By: #### M G, CMP, GFR, CBC, PBNP, ANEU, ADIFF, TSH, TROPHS #### [address] [address] Eosinophils/100 WBC (Bld) 2.2 % Normal 0.0-6.0 [facility] Comment on above: Performed By: #### M G, CMP, GFR, CBC, PBNP, ANEU, ADIFF, TSH, TROPHS #### [address] [address] Lymphocyte, Absolute 1.4 10 3/mcL Normal 0.9-4.3 [facility] Comment on above: Performed By: #### M G, CMP, GFR, CBC, PBNP, ANEU, ADIFF, TSH, TROPHS #### [address] [address] Lymphocytes/100 WBC (Bld) 21.0 % Normal 20.0-40.0 [facility] Comment on above: Performed By: #### M G, CMP, GFR, CBC, PBNP, ANEU, ADIFF, TSH, TROPHS #### [address] [address] Monocyte, Absolute 0.5 10 3/mcL Normal 0.1-1.4 [facility] Comment on above: Performed By: #### M G, CMP, GFR, CBC, PBNP, ANEU, ADIFF, TSH, TROPHS #### [address] [address] Monocytes/100 WBC (Bld) 7.5 % Normal 2.0-13.0 [facility] Comment on above: Performed By: #### M G, CMP, GFR, CBC, PBNP, ANEU, ADIFF, TSH, TROPHS #### [address] [address] Neutrophils/100 WBC (Bld) 68.7 % Normal 50.0-75.0 [facility] Comment on above: Performed By: #### M G, CMP, GFR, CBC, PBNP, ANEU, ADIFF, TSH, TROPHS #### [address] [address] .GFRon 01-25-2024 GFR >60 Normal [facility] Comment on above: Result Comment: [...] DIFF, CBC, GFR, ANEU, BMP, MG #### [address] [address] GFR Non- >60 Normal [facility] Comment on above: Result Comment: [...] DIFF, CBC, GFR, ANEU, BMP, MG #### [address] [address] .NEUABSon 01-25-2024 Neutrophil, Absolute 4.6 10 3/mcL Normal 2.3-8.1 [facility] Comment on above: Performed By: #### A DIFF, CBC, GFR, ANEU, BMP, MG #### [address] [address] 12 Lead EKGon 01-25-2024 12 Lead EKG [facility] Cardiovascular Services [address] [place] [address] 12 Lead EKG 01/24/24 1715 MR#: [id number] Acct: [id number] Name: KALINA RUDD Rep #: [id number] : 1940 83 From: Meche Sutton MD [...] ECG Confirmed by RADHA TERRAZAS, BARBARA ([id number]), editorial specialist EMILY MANTILLA ([id number]) on 01/28/2024 1:38:33 PM Referred By: Confirmed By: BARBARA SUTTON MD 01/28/24 1338 Date Meche Sutton MD CC: Dr. Karen Resendiz MD; Dr. Mejia Shah DO; Chetan Nick DO Signed Normal [facility] CBCon 01-25-2024 Erythrocyte distribution width (RBC) [Ratio] 13.6 % Normal 11.5-15.5 [facility] Comment on above: Performed By: #### M G, CMP, GFR, CBC, PBNP, ANEU, ADIFF, TSH, TROPHS #### [address] [address] Hematocrit (Bld) [Volume fraction] 37.9 % Normal 34.0-46.0 [facility] Comment on above: Performed By: #### M G, CMP, GFR, CBC, PBNP, ANEU, ADIFF, TSH, TROPHS #### [address] [address] Hgb 12.7 G/dL Normal 12.0-16.0 [facility] Comment on above: Performed By: #### M G, CMP, GFR, CBC, PBNP, ANEU, ADIFF, TSH, TROPHS #### [place] [id number] MCH (RBC) [Entitic mass] 31.0 pg Normal 27.0-33.0 [facility] Comment on above: Performed By: #### M G, CMP, GFR, CBC, PBNP, ANEU, ADIFF, TSH, TROPHS #### [place] [id number] MCHC 33.6 G/dL Normal 32.0-36.0 [facility] Comment on above: Performed By: #### M G, CMP, GFR, CBC, PBNP, ANEU, ADIFF, TSH, TROPHS #### [place] [address] MCV (RBC) [Entitic vol] 92.2 fL Normal 80.0-99.0 [facility] Comment on above: Performed By: #### M G, CMP, GFR, CBC, PBNP, ANEU, ADIFF, TSH, TROPHS #### [place] [address] Platelet 293 10 3/mcL Normal 150-450 [facility] Comment on above: Performed By: #### M G, CMP, GFR, CBC, PBNP, ANEU, ADIFF, TSH, TROPHS #### [place] [address] Platelet mean volume (Bld) [Entitic vol] 7.6 fL Normal 6.6-10.5 [facility] Comment on above: Performed By: #### M G, CMP, GFR, CBC, PBNP, ANEU, ADIFF, TSH, TROPHS #### [place] [id number] RBC 4.11 10 6/mcL Normal 4.10-5.30 [facility] Comment on above: Performed By: #### M G, CMP, GFR, CBC, PBNP, ANEU, ADIFF, TSH, TROPHS #### [place] [id number] WBC 6.7 10 3/mcL Normal 4.5-10.8 [facility] Comment on above: Performed By: #### M G, CMP, GFR, CBC, PBNP, ANEU, ADIFF, TSH, TROPHS #### [address] [address] CMPon 01-25-2024 Albumin Level 3.1 G/dL Low 3.2-4.8 [facility] Comment on above: Performed By: #### A DIFF, CBC, GFR, ANEU, BMP, MG #### [address] [address] Albumin/Globulin [Mass ratio] 0.8 {ratio} Low 0.9-1.6 [facility] Comment on above: Performed By: #### A DIFF, CBC, GFR, ANEU, BMP, MG #### [address] [address] ALP [Catalytic activity/Vol] 98 U/L Normal 38-126 [facility] Comment on above: Performed By: #### A DIFF, CBC, GFR, ANEU, BMP, MG #### [address] [address] ALT [Catalytic activity/Vol] 10 U/L Normal 10-49 [facility] Comment on above: Performed By: #### A DIFF, CBC, GFR, ANEU, BMP, MG #### [address] [address] AST [Catalytic activity/Vol] 15 U/L Normal 8-34 [facility] Comment on above: Performed By: #### A DIFF, CBC, GFR, ANEU, BMP, MG #### [address] [address] Bili Total 0.90 mg/dL Normal 0.20-1.20 [facility] Comment on above: Result Comment: Use of this assay is not recommended for patients undergoing treatment with eltrombopag due to the potential for falsely elevated results. Performed By: #### A DIFF, CBC, GFR, ANEU, BMP, MG #### [place] [id number] BUN/Creatinine Ratio 16.7 ratio Normal 10.0-22.0 [facility] Comment on above: Performed By: #### A DIFF, CBC, GFR, ANEU, BMP, MG #### [place] [id number] Calcium [Mass/Vol] 9.2 mg/dL Normal 8.7-10.4 [facility] Comment on above: Performed By: #### A DIFF, CBC, GFR, ANEU, BMP, MG #### [place] [id number] Chloride [Moles/Vol] 110 mmol/L Normal 98-110 [facility] Comment on above: Performed By: #### A DIFF, CBC, GFR, ANEU, BMP, MG #### [address] [address] CO2 [Moles/Vol] 22 mmol/L Normal 22-32 [facility] Comment on above: Performed By: #### A DIFF, CBC, GFR, ANEU, BMP, MG #### [place] [address] Creatinine [Mass/Vol] 0.72 mg/dL Normal 0.50-1.20 [facility] Comment on above: Result Comment: Test ing performed on [employer] analyzer using enzymatic creatinine methodology. Performed By: #### A DIFF, CBC, GFR, ANEU, BMP, MG #### [address] [address] Electrolyte Balance 9.0 mEq/L Normal 4.0-15.[address] [facility] Comment on above: Performed By: #### A DIFF, CBC, GFR, ANEU, BMP, MG #### [address] [address] Globulin 3.8 G/dL Normal 1.5-3.8 [facility] Comment on above: Performed By: #### A DIFF, CBC, GFR, ANEU, BMP, MG #### [place] [id number] Glucose [Mass/Vol] 84 mg/dL Normal 82-115 [facility] Comment on above: Performed By: #### A DIFF, CBC, GFR, ANEU, BMP, MG #### [address] [address] Potassium [Moles/Vol] 3.6 mmol/L Normal 3.5-5.0 [facility] Comment on above: Performed By: #### A DIFF, CBC, GFR, ANEU, BMP, MG #### [address] [address] Sodium [Moles/Vol] 141 mmol/L Normal 136-145 [facility] Comment on above: Performed By: #### A DIFF, CBC, GFR, ANEU, BMP, MG #### [address] [address] Total Protein 6.9 G/dL Normal 5.7-8.2 [facility] Comment on above: Performed By: #### A DIFF, CBC, GFR, ANEU, BMP, MG #### [address] [address] Urea nitrogen [Mass/Vol] 12.0 mg/dL Normal 8.0-22.0 [facility] Comment on above: Performed By: #### A DIFF, CBC, GFR, ANEU, BMP, MG #### [address] [address] LABORATORYOrdered By: SYSTEM SYSTEM on 01-25-2024 Troponin I.cardiac DL <= 0.01 ng/mL [Mass/Vol] 78 ng/L High 0 - 34 ng/L ADM Comment on above: Interpretive Data: High Sensitive Troponin I Reference Ranges: Female: 0-34 ng/L Male: 0-54 ng/L Testing performed on [employer] IM analyzer using direct chemiluminescent technology. Troponin I.cardiac DL <= 0.01 ng/mL [Mass/Vol] 120 ng/L High 0 - 34 ng/L ADM SS Comment on above: Interpretive Data: High Sensitive Troponin I Reference Ranges: Female: 0-34 ng/L Male: 0-54 ng/L Testing performed on [employer] IM analyzer using direct chemiluminescent technology. Albumin [...] above: Interpretive Data: T esting performed on [employer] analyzer using enzymatic creatinine methodology. Electrolyte Balance [...] 1874 pg/mL High 0 - 1800 pg/mL AH ADM SS Neutrophils (Bld) [#/Vol] 4.6 103/mcL [...] 3.6 mmol/L Normal 3.5 - 5.0 mEq/L AH ADM SS Protein [Mass/Vol] 6.9 G/dL Normal 5.7 - 8.2 G/dL AH ADM SS RBC (Bld) [#/Vol] 4.11 106/mcL Normal 4.10 - 5.3 0 10^6/mcL AH Workflow SS Sodium [Moles/Vol] 141 mmol/L Normal 136 - 145 mEq/L ADM SS Troponin I.cardiac DL <= 0.01 ng/mL [Mass/Vol] 143 ng/L High 0 - 34 ng/L ADM SS Comment on above: Interpretive Data: High Sensitive Troponin I Reference Ranges: Female: 0-34 ng/L Male: 0-54 ng/L Testing performed on Stuffle analyzer using direct chemiluminescent technology. TSH Qn 4.449 mIU/mL Normal 0.550 - 4.780 mIU/mL ADM SS Urea nitrogen [Mass/Vol] 12.0 mg/dL Normal 8.0 - 22.0 mg/dL ADM SS Urea nitrogen/Creatinine [Mass ratio] 16.7 ratio Normal 10.0 - 22.0 ratio AH ADM SS WBC (Bld) [#/Vol] 6.7 103/mcL Normal 4.5 - 10.8 10^3/mcL AH Workflow SS MGon 01-25-2024 Magnesium [Mass/Vol] 2.0 mg/dL Normal 1.6-2.4 [facility] Comment on above: Performed By: #### A DIFF, CBC, GFR, ANEU, BMP, MG #### [place] [address] PBNPon 01-25-2024 Natriuretic peptide B (Bld) [Mass/Vol] 1874 pg/mL High 0-1800 [facility] Comment on above: Performed By: #### A DIFF, CBC, GFR, ANEU, BMP, MG #### [address] 01-25-2024 High Sensitivity Troponin I 78 ng/L [address] MAIN Comment on above: Result Comment: High Sensitive Troponin I Reference Ranges: Female: 0-34 ng/L Male: 0-54 ng/L Testing performed on [employer] IM analyzer using direct chemiluminescent technology. Performed By: #### A DIFF, CBC, GFR, ANEU, BMP, MG #### [place] [address] High Sensitivity Troponin I 120 ng/L [address] MAIN Comment on above: Result Comment: High Sensitive Troponin I Reference Ranges: Female: 0-34 ng/L Male: 0-54 ng/L Testing performed on [employer]ellica IM analyzer using direct chemiluminescent technology. Performed By: #### A DIFF, CBC, GFR, ANEU, BMP, MG #### [place] [address] High Sensitivity Troponin I 143 ng/L [address] MAIN Comment on above: Result Comment: High Sensitive Troponin I Reference Ranges: Female: 0-34 ng/L Male: 0-54 ng/L Testing performed on [employer]ellica IM analyzer using direct chemiluminescent technology. Performed By: #### A DIFF, CBC, GFR, ANEU, BMP, MG #### [address] 01-25-2024 TSH 4.449 mIU/mL Normal 0.550-4.780 [facility] Comment on above: Performed By: #### A DIFF, CBC, GFR, ANEU, BMP, MG #### [facility] [address] [place] [address] 12 Lead EKGon 01-24-2024 12 Lead EKG [facility] Cardiovascular Services [address] [place] [address] 12 Lead EKG 01/24/24 1013 MR#: [id number] Acct: [id number] Name: DEBRA RUDDYN Everardo Rep #: [id number] : 1940 83 From: Meche Sutton MD [...] ECG Confirmed by RADHA TERRAZAS, BARBARA ([id number]), editorial specialist EIMLY MANTILLA ([id number]) on 01/28/2024 1:38:22 PM Referred By: TB Confirmed By: BARBARA SUTTNO MD 01/28/24 1338 Date Meche Sutton MD CC: Dr. Karen Resendiz MD; Dr. Mejia Shah DO Signed Normal [facility] 12 Lead EKG [facility] Cardiovascular Services [address] [place] [address] 12 Lead EKG 01/25/24 0026 MR#: [id number] Acct: [id number] Name: KALINA RUDD Rep #: [id number] : 1940 83 From: Valdemar Kimble MD [...] Abnormal ECG Confirmed by VALDEMAR KIMBLE MD ([id number]), editorial specialist EMILY MANTILLA ([id number]) on 01/28/2024 6:06:18 AM Referred By: ANDES Confirmed By: VALDEMAR KIMBLE MD 01/28/24 06 Date Valdemar Kimble MD CC: Dr. Karen Resendiz MD; Dr. Mejia Shah DO Signed Normal [facility] Basic Metabolic Profile (BMP )on 01-24-2024 BUN/CRE 22.3 RATIO High 10-20 [facility] Comment on above: Order Comment: REDRA W. PREVIOUS SPECIMEN REJECTED DUE TO HEMOLYSIS. 09/19/24512 Alfredo Tenorio. Performed By: #### L 501.5200, L501.9520, L500.2500, L501.4021 #### [facility] [address] [place], [address] CA,Total 9.3 mg/dL Normal 8.5-10.1 [facility] Comment on above: Order Comment: REDRA W. PREVIOUS SPECIMEN REJECTED DUE TO HEMOLYSIS. 09/19/24512 Alfredo Tenorio. Performed By: #### L 501.5200, L501.9520, L500.2500, L501.4021 #### [facility] [address] [place], [address] Chloride [Moles/Vol] 110 mmol/L High 98-107 [facility] Comment on above: Order Comment: REDRA W. PREVIOUS SPECIMEN REJECTED DUE TO HEMOLYSIS. 09/19/24512 Alfredo Tenorio. Performed By: #### L 501.5200, L501.9520, L500.2500, L501.4021 #### [facility] [address] [place], [address] CO2 [Moles/Vol] 23.0 mmol/L Normal 21.0-32.0 [facility] Comment on above: Order Comment: REDRA W. PREVIOUS SPECIMEN REJECTED DUE TO HEMOLYSIS. 09/19/24512 Alfredo Tenorio. Performed By: #### L 501.5200, L501.9520, L500.2500, L501.4021 #### [facility] [address] [place], [address] Creatinine [Mass/Vol] 0.85 mg/dL Normal 0.55-1.02 [facility] Comment on above: Order Comment: REDRA W. PREVIOUS SPECIMEN REJECTED DUE TO HEMOLYSIS. 09/19/24512 Alfredo Tenorio. Result Comment: The validity of the calculated GFR GFRAA in patients over 70 years has not been determined. Clinical correlation is essential. Performed By: #### L 501.5200, L501.9520, L500.2500, L501.4021 #### [facility] [address] [place], [address] ECRCL 44.00 ml/min Normal [facility] Comment on above: Order Comment: REDRA W. PREVIOUS SPECIMEN REJECTED DUE TO HEMOLYSIS. 09/19/24512 Alfredo Tenorio. Performed By: #### L 501.5200, L501.9520, L500.2500, L501.4021 #### [facility] [address] [place], [address] EST GFR - AA 82 mL/min Normal >60 [facility] Comment on above: Order Comment: REDRA W. PREVIOUS SPECIMEN REJECTED DUE TO HEMOLYSIS. 09/19/24512 Alfredo Tenorio. Result Comment: Afri can Nigerian GFR Calc Performed By: #### L 501.5200, L501.9520, L500.2500, L501.4021 #### [facility] [address] [place], [address] GAP 6 Normal 5-15 [facility] Comment on above: Order Comment: REDRA W. PREVIOUS SPECIMEN REJECTED DUE TO HEMOLYSIS. 09/19/24512 Alfredo Tenorio. Performed By: #### L 501.5200, L501.9520, L500.2500, L501.4021 #### [facility] [address] [place], [address] GFR/1.73 sq M.predicted among non-blacks MDRD (S/P/Bld) [Vol rate/Area] 68 mL/min/{1.73_m2} Normal >60 [facility] Comment on above: Order Comment: REDRA W. PREVIOUS SPECIMEN REJECTED DUE TO HEMOLYSIS. 09/19/24512 Alfredo Tenorio. Result Comment: Non- GFR Calc Performed By: #### L 501.5200, L501.9520, L500.2500, L501.4021 #### [facility] [address] [place], [address] Glucose [Mass/Vol] 116 mg/dL High 74-106 [facility] Comment on above: Order Comment: REDRA W. PREVIOUS SPECIMEN REJECTED DUE TO HEMOLYSIS. 09/19/24512 Alferdo Tenorio. Result Comment: Fast ing Glucose result from 100 to 125 mg/dL suggests IMPAIRED HOMEOSTASIS per A.D.A. criteria. Performed By: #### L 501.5200, L501.9520, L500.2500, L501.4021 #### [facility] [address] [place], [address] Potassium [Moles/Vol] 3.9 mmol/L Normal 3.5-5.1 [facility] Comment on above: Order Comment: REDRA W. PREVIOUS SPECIMEN REJECTED DUE TO HEMOLYSIS. 09/19/24512 Alfredo Tenorio. Result Comment: Slig ht Hemolysis, Result may be falsely increased. Performed By: #### L 501.5200, L501.9520, L500.2500, L501.4021 #### [facility] [address] [place], [address] Sodium [Moles/Vol] 139 mmol/L Normal 136-145 [facility] Comment on above: Order Comment: REDRA W. PREVIOUS SPECIMEN REJECTED DUE TO HEMOLYSIS. 09/19/24512 Alfredo Tenorio. Performed By: #### L 501.5200, L501.9520, L500.2500, L501.4021 #### [facility] [address] [place], [address] Urea nitrogen [Mass/Vol] 19 mg/dL High 7-18 [facility] Comment on above: Order Comment: REDRA W. PREVIOUS SPECIMEN REJECTED DUE TO HEMOLYSIS. 09/19/24512 Alfredo Tenorio. Performed By: #### L 501.5200, L501.9520, L500.2500, L501.4021 #### [facility] [address] [place], [address] CBC W/Diff, Automatedon 01-10 Absolute Lymph 1.07 X10 3/uL Normal 0.83-4.51 [facility] Comment on above: Performed By: #### L 501.5200, L501.9520, L500.2500, L501.4021 #### [facility] [address] [place], [address] Absolute Neut 6.0 X10 3/uL Normal 2.0-7.7 [facility] Comment on above: Performed By: #### L 501.5200, L501.9520, L500.2500, L501.4021 #### [facility] [address] [place], [address] Basophils/100 WBC (Bld) 0.6 % Normal 0-1 [facility] Comment on above: Performed By: #### L 501.5200, L501.9520, L500.2500, L501.4021 #### [facility] [address] [place], [address] Eosinophils/100 WBC (Bld) 1.4 % Normal 0-5 [facility] Comment on above: Performed By: #### L 501.5200, L501.9520, L500.2500, L501.4021 #### [facility] [address] [place], [address] Erythrocyte distribution width (RBC) [Ratio] 13.0 % Normal 11.6-14.6 [facility] Comment on above: Performed By: #### L 501.5200, L501.9520, L500.2500, L501.4021 #### [facility] [address] [place], [address] Hematocrit (Bld) [Volume fraction] 40.3 % Normal 37-47 [facility] Comment on above: Performed By: #### L 501.5200, L501.9520, L500.2500, L501.4021 #### [facility] [address] [place], [address] Hemoglobin (Bld) [Mass/Vol] 13.3 g/dL Normal 12.0-15.0 [facility] Comment on above: Performed By: #### L 501.5200, L501.9520, L500.2500, L501.4021 #### [facility] [address] [place], [address] IG% 0.500 Normal 0.0-0.9 [facility] Comment on above: Result Comment: IG% - Immature Granulocytes (promyelocytes, myelocytes and metamyelocytes) > 1% indicates that a LEFT SHIFT is Present. Performed By: #### L 501.5200, L501.9520, L500.2500, L501.4021 #### [facility] [address] [place], [address] Lymphocytes/100 WBC (Bld) 13.6 % Low 19-41 [facility] Comment on above: Performed By: #### L 501.5200, L501.9520, L500.2500, L501.4021 #### [facility] [address] [place], [address] MCH (RBC) [Entitic mass] 30.3 pg Normal 27.0-32.0 [facility] Comment on above: Performed By: #### L 501.5200, L501.9520, L500.2500, L501.4021 #### [facility] [address] [place], [address] MCHC (RBC) [Mass/Vol] 33.0 g/dL Normal 32-36 [facility] Comment on above: Performed By: #### L 501.5200, L501.9520, L500.2500, L501.4021 #### [facility] [address] [place], [address] MCV (RBC) [Entitic vol] 91.8 fL Normal 81-99 [facility] Comment on above: Performed By: #### L 501.5200, L501.9520, L500.2500, L501.4021 #### [facility] [address] [place], [address] Monocytes/100 WBC (Bld) 7.0 % Normal 0-10 [facility] Comment on above: Performed By: #### L 501.5200, L501.9520, L500.2500, L501.4021 #### [facility] [address] [place], [address] Neutrophils/100 WBC (Bld) 76.9 % High 47-70 [facility] Comment on above: Performed By: #### L 501.5200, L501.9520, L500.2500, L501.4021 #### [facility] [address] [place], [address] Nucleated RBC (Bld) [#/Vol] 0 10*3/uL Normal 0-5 [facility] Comment on above: Performed By: #### L 501.5200, L501.9520, L500.2500, L501.4021 #### [facility] [address] [place], [address] Platelet mean volume (Bld) [Entitic vol] 9.4 fL Normal 6.2-12.0 [facility] Comment on above: Performed By: #### L 501.5200, L501.9520, L500.2500, L501.4021 #### [facility] [address] [place], [address] Platelets (Bld) [#/Vol] 318 10*3/uL Normal 150-450 [facility] Comment on above: Performed By: #### L 501.5200, L501.9520, L500.2500, L501.4021 #### [facility] [address] [place], [address] RBC (Bld) [#/Vol] 4.39 10*6/uL Normal 4.2-5.4 [facility] Comment on above: Performed By: #### L 501.5200, L501.9520, L500.2500, L501.4021 #### [facility] [address] [place], [address] RDW SD 43.7 fl Normal 35.1-43.9 [facility] Comment on above: Performed By: #### L 501.5200, L501.9520, L500.2500, L501.4021 #### [facility] [address] [place], [address] WBC (Bld) [#/Vol] 7.9 10*3/uL Normal 4.4-11.0 [facility] Comment on above: Performed By: #### L 501.5200, L501.9520, L500.2500, L501.4021 #### [facility] [address] [place], [address] CTA Chest W/WO Contraston CTA Chest W/WO Contrast [facility] Imaging Services [address] [place] [address] CTA Chest W/WO Contrast MR#: [id number] Acct: [id number] Name: KALINA RUDD Rep #: [id number] : 1940 F 83 From: Dar strong MD PCP: Dr. Karen Resendiz MD Status: REG ER Study: CTA Chest W/WO Contrast Date of Exam: 01/24/24 Exam# [id number] Ordering Dr: Mejia Shah DO [id number] STUDY: CTA CHEST REASON FOR EXAM: Female, [...] Signed: Dar Charles MD at 19:04 EST Reading Location ID and State: [address] [place] [address] , Service support , CC: Dr. Karen Resendiz MD; Dr. Mejia Shah DO Cigarette Paper Tester: Signed Normal [facility] Chest PA and Lateralon 01-23 Chest PA and Lateral [facility] Imaging Services [address] [place] [address] [id number] Chest PA and Lateral MR#: [id number] Acct: [id number] Name: KALINA RUDD Rep #: [id number] : 1940 F 83 From: Taisha Arora MD PCP: Dr. Karen Resendiz MD Status: REG ER Study: Chest PA and Lateral Date of Exam: 01/24/24 Exam# [id number] Ordering Dr: Mejia Shah DO [id number] INDICATION: chest pain EXAMINATION/TECHNIQUE: X-RAY - XR [...] Karen Resendiz MD; Dr. Mejia Shah DO Cigarette Paper Tester: Signed Normal [facility] D-Dimer Quantitative (DVT/PE )on 01-24-2024 D-DIMER QUANT 0.72 FEU/ug/m Invalid Interpretation Code 0.27-0.49 [facility] Comment on above: Result Comment: D-Di kimberli ELEVATED (>0.49): Additional studies and clinical assessments are indicated to conclude diagnosis of: Deep Vein Thrombosis (DVT) or Pulmonary Embolism (PE) CRITICAL VALUE CALLED TO GERTRUDE 01/24/24 1749 Tasneem Delaney. RESULTS READ BACK BY SAME. Performed By: #### L 501.5200, L501.9520, L500.2500, L501.4021 #### [facility] [address] [facility] [place], [address] Emergency Department Summary on 01-24-2024 Emergency Department Summary [facility] Medical Records Department [address] [place] [address] Emergency Department Summary 01/24/24 MR#: [id number] Acct: [id number] Name: KALINA RUDD Rep #: [id number] : 1940 83 From: Mejia Shah DO PCP: Dr. Karen Resendiz MD Status:REG ER Location: ED ADDENDUM by Dr. 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 No demonstrated PE or arterial dissection. 01/24/24 1909 Cosigner Signature (if applicable): cc: Dr. Karen [...] is still currently awaiting a bed at [facility]. 01/24/24 1715 Cosigner Signature (if applicable): [...] CAD status post recent stent placement at [facility] who presented to the emergency department the chief complaint of elevated blood pressure. Patient states that she was originally here was ultimately transferred to [facility] where there was discussion for PCI [...] time feels that her baseline. [facility] Medical History STEMI (ST elevation myocardial infarction) [...] Never smoker (more content not included)... Normal [facility] L501.4020on 01-24-2024 TROPONIN-I HS 250 pg/mL Invalid Interpretation Code 3.0-54.0 [facility] Comment on above: Order Comment: 'TROP ' Serial specimen #1, #2 or #3: 3 Result Comment: Crit ical Result(s) Called at: 17:45:08 01/24/2024 by: АНДРЕЙ SAUCEDA. Results read back by Norberto Monk Please Note: New Test Units and Gender Specific Reference Ranges. For more information see Policy Stat Procedure [place] High Sensitivity Troponin (TNIH) and attachments. Performed By: #### L 501.4020 #### [facility] [address] [place], [address] TROPONIN-I HS 288 pg/mL Invalid Interpretation Code 3.0-54.0 [facility] Comment on above: Result Comment: Crit ical Result(s) Called at: 13:50:45 01/24/2024 by: Young Mckeon RN (ER). Results read back by same. Please Note: New Test Units and Gender Specific Reference Ranges. For more information see Policy Stat Procedure [place] High Sensitivity Troponin (TNIH) and attachments. Performed By: #### L 501.5200, L501.9520, L500.2500, L501.4021 #### [facility] [address] [place], [address] L501.5425on 01-24-2024 TROPONIN-I HS 334 pg/mL Invalid Interpretation Code 3.0-54.0 [facility] Comment on above: Order Comment: ANDRY Tavarez. PREVIOUS SPECIMEN REJECTED DUE TO HEMOLYSIS. 09/19/24 0513 Alfredo Tenorio. Result Comment: Crit ical Result(s) Called at: 11:38:26 01/24/2024 by: Young Mckeon RN (ER). Results read back by same. Please Note: New Test Units and Gender Specific Reference Ranges. For more information see Policy Stat Procedure [place] High Sensitivity Troponin (TNIH) and attachments. Performed By: #### L 501.5200, L501.9520, L500.2500, L501.4021 #### [facility] [address] [place], [address] Magnesiumon 01-24-2024 Magnesium [Mass/Vol] 2.1 mg/dL Normal 1.6-2.6 [facility] Comment on above: Order Comment: REDRA W. PREVIOUS SPECIMEN REJECTED DUE TO HEMOLYSIS. 09/19/24 0513 Alfredo Tenorio. Result Comment: Slig ht Hemolysis, Result may be falsely increased. Performed By: #### L 501.5200, L501.9520, L500.2500, L501.4021 #### [facility] [address] [place], [address] Partial Thromboplast Timeon 01-24-2024 aPTT Coag (Bld) [Time] 26.6 s Normal 24.1-36.2 [facility] Comment on above: Performed By: #### L 501.5200, L501.9520, L500.2500, L501.4021 #### [facility] [address] [place], [address] Prothrombin Time w/INRon INR Coag (PPP) [Relative time] 1.1 {INR} Normal [facility] Comment on above: Performed By: #### L 501.5200, L501.9520, L500.2500, L501.4021 #### [facility] [address] [place], [address] PT Coag (PPP) [Time] 14.2 s Normal 11.7-14.9 [facility] Comment on above: Performed By: #### L 501.5200, L501.9520, L500.2500, L501.4021 #### [facility] [address] [place], [address] Sharon 01-23-2024 [facility] Telephone (INTMWS) -- TOBINKALINA ([id number]) 1940 F [facility] Date Time Provider Department 01/23/24 KAREN RESENDIZ INTMWS During your visit today, [...] [facility] Reviewed care [...] dreams Date Reviewed: 01/17/2024 Reviewed by: Cristina Tellez, RN - Fully Assessed Reason for Visit: Patient Question [4785] Prescriptions as of 01/23/2024 - metoprolol succinate [...] ointment Actually gets compounded RX 0.07% through [facility] from [employer] to use twice weekly - Miscellaneous Medical Supply [facility] probiotics--Yeast and Vaginal PH support [...] Status:Closed by ODESSA ACKERMAN on 01/23/24 Normal [facility] .Auto Diffon 01-20-2024 Basophil, Absolute 0.0 10 3/mcL Normal 0.0-0.3 [facility] Comment on above: Performed By: #### A DIFF, CBC, GFR, ANEU, BMP, MG #### [address] [address] Eosinophil, Absolute 0.0 10 3/mcL Normal 0.0-0.7 [facility] Comment on above: Performed By: #### A DIFF, CBC, GFR, ANEU, BMP, MG #### [address] [address] Lymphocyte, Absolute 1.0 10 3/mcL Normal 0.9-4.3 [facility] Comment on above: Performed By: #### A DIFF, CBC, GFR, ANEU, BMP, MG #### [address] [address] Monocyte, Absolute 1.0 10 3/mcL Normal 0.1-1.4 [facility] Comment on above: Performed By: #### A DIFF, CBC, GFR, ANEU, BMP, MG #### [address] [address] .Auto DiffOrdered By: SYSTEM SYSTEM on 01-20-2024 Basophils/100 WBC (Bld) 0.2 % Normal 0.0-2.5 [facility] Workflow SS Comment on above: Performed By: #### A DIFF, CBC, GFR, ANEU, BMP, MG #### [address] [address] Eosinophils/100 WBC (Bld) 0.3 % Normal 0.0-6.0 [facility] Workflow SS Comment on above: Performed By: #### A DIFF, CBC, GFR, ANEU, BMP, MG #### [address] [address] Lymphocytes/100 WBC (Bld) 10.6 % Low 20.0-40.0 [facility] Workflow SS Comment on above: Performed By: #### A DIFF, CBC, GFR, ANEU, BMP, MG #### [address] [address] Monocytes/100 WBC (Bld) 10.3 % Normal 2.0-13.0 [facility] Workflow SS Comment on above: Performed By: #### A DIFF, CBC, GFR, ANEU, BMP, MG #### [address] [address] Neutrophils/100 WBC (Bld) 78.6 % High 50.0-75.0 [facility] Workflow SS Comment on above: Performed By: #### A DIFF, CBC, GFR, ANEU, BMP, MG #### [address] [address] .GFRon 01-20-2024 GFR >60 Normal [facility] Comment on above: Result Comment: [...] DIFF, CBC, GFR, ANEU, BMP, MG #### [address] [address] GFR Non- >60 [facility] Comment on above: Result Comment: [...] DIFF, CBC, GFR, ANEU, BMP, MG #### [address] [address] .NEUABSon 01-20-2024 Neutrophil, Absolute 7.6 10 3/mcL Normal 2.3-8.1 [facility] Comment on above: Performed By: #### A DIFF, CBC, GFR, ANEU, BMP, MG #### [place] [address] [id number] By: SYSTEM SYSTEM on 01-20-2024 Glucose [Mass/Vol] 103 mg/dL Normal [facility] Aut o Chem SS Comment on above: Interpretive Data: E stimated average glucose (eAG) is a calculated value from Hemoglobin A1C and is bilingual sales representative of the average blood glucose level in the last 2-3 month period. Normal range: less than 114 mg/dL Result Comment: Shara mated Average Glucose calculated by equation ((28.7xA1C)-46.7) Estimated average glucose (eAG) is a calculated value from Hemoglobin A1C and is bilingual sales representative of the average blood glucose level in the last 2-3 month period. Normal range: less than 114 mg/dL Performed By: #### A DIFF, CBC, GFR, ANEU, BMP, MG #### [place] [address] HbA1c (Bld) [Mass fraction] 5.2 % Normal 4.0-6.0 [facility] Auto Chem SS Comment on above: Performed By: #### A DIFF, CBC, GFR, ANEU, BMP, MG #### [place] [address] BMPon 01-20-2024 BUN/Creatinine Ratio 14.7 ratio Normal 10.0-22.0 [facility] Comment on above: Performed By: #### A DIFF, CBC, GFR, ANEU, BMP, MG #### [place] [address] BMPOrdered By: SYSTEM SYSTEM on 01-20-2024 Calcium [Mass/Vol] 9.0 mg/dL Normal 8.7-10.4 AH ADM SS Comment on above: Performed By: #### A DIFF, CBC, GFR, ANEU, BMP, MG #### [place] [address] Chloride [Moles/Vol] 107 mmol/L Normal 98-110 AH A DM SS Comment on above: Performed By: #### A DIFF, CBC, GFR, ANEU, BMP, MG #### [address] [address] CO2 [Moles/Vol] 24 mmol/L Normal 22-32 AH ADM SS Comment on above: Performed By: #### A DIFF, CBC, GFR, ANEU, BMP, MG #### [address] [address] Creatinine [Mass/Vol] 0.75 mg/dL Normal 0.50-1.20 ADM SS Comment on above: Interpretive Data: T esting performed on [employer] CH analyzer using enzymatic creatinine methodology. Result Comment: Test ing performed on [employer] CH analyzer using enzymatic creatinine methodology. Performed By: #### A DIFF, CBC, GFR, ANEU, BMP, MG #### [place] [id number] Electrolyte Balance 7.0 mEq/L Normal 4.0-15.0 AH AD M SS Comment on above: Performed By: #### A DIFF, CBC, GFR, ANEU, BMP, MG #### [place] [id number] Glucose [Mass/Vol] 102 mg/dL Normal 82-115 AH ADM SS Comment on above: Performed By: #### A DIFF, CBC, GFR, ANEU, BMP, MG #### [place] [id number] Potassium [Moles/Vol] 3.9 mmol/L Normal 3.5-5.0 AH ADM SS Comment on above: Performed By: #### A DIFF, CBC, GFR, ANEU, BMP, MG #### [place] [id number] Sodium [Moles/Vol] 138 mmol/L Normal 136-145 AH ADM SS Comment on above: Performed By: #### A DIFF, CBC, GFR, ANEU, BMP, MG #### [place] [id number] Urea nitrogen [Mass/Vol] 11.0 mg/dL Normal 8.0-22.0 AH ADM SS Comment on above: Performed By: #### A DIFF, CBC, GFR, ANEU, BMP, MG #### [place] [address] CBCOrdered By: SYSTEM SYSTEM on 01-20-2024 Erythrocyte distribution width (RBC) [Ratio] 14.1 % Normal 11.5-15.5 AH Workflow SS Comment on above: Performed By: #### A DIFF, CBC, GFR, ANEU, BMP, MG #### [place] [address] Hematocrit (Bld) [Volume fraction] 36.6 % Normal 34.0-46.0 AH Workflow SS Comment on above: Performed By: #### A DIFF, CBC, GFR, ANEU, BMP, MG #### [place] [address] MCH (RBC) [Entitic mass] 31.1 pg Normal 27.0-33.0 AH Workflow SS Comment on above: Performed By: #### A DIFF, CBC, GFR, ANEU, BMP, MG #### [place] [address] MCHC 33.9 G/dL Normal 32.0-36.0 AH Workflow SS Comment on above: Performed By: #### A DIFF, CBC, GFR, ANEU, BMP, MG #### [place] [id number] MCV (RBC) [Entitic vol] 91.6 fL Normal 80.0-99.0 AH Workflow SS Comment on above: Performed By: #### A DIFF, CBC, GFR, ANEU, BMP, MG #### [place] [id number] Platelet mean volume (Bld) [Entitic vol] 8.5 fL Normal 6.6-10.5 AH Workflow SS Comment on above: Performed By: #### A DIFF, CBC, GFR, ANEU, BMP, MG #### [place] [id number] CBCon 01-20-2024 Hgb 12.4 G/dL Normal 12.0-16.0 [facility] Comment on above: Performed By: #### A DIFF, CBC, GFR, ANEU, BMP, MG #### [place] [id number] Platelet 188 10 3/mcL Normal 150-450 [facility] Comment on above: Performed By: #### A DIFF, CBC, GFR, ANEU, BMP, MG #### [facility] [address] [place] [address] RBC 3.99 10 6/mcL Low 4.10-5.30 [facility] Comment on above: Performed By: #### A DIFF, CBC, GFR, ANEU, BMP, MG #### [facility] [address] [place] [address] WBC 9.6 10 3/mcL Normal 4.5-10.8 [facility] Comment on above: Performed By: #### A DIFF, CBC, GFR, ANEU, BMP, MG #### [facility] [address] [place] [address] LABORATORYOrdered By: SYSTEM SYSTEM on 01-20-2024 Basophils [...] DIFF, CBC, GFR, ANEU, BMP, MG #### [address] [address] .Auto Diffon 01-19-2024 Basophil, Absolute 0.0 10 3/mcL Normal 0.0-0.3 [facility] Comment on above: Performed By: #### A DIFF, CBC, GFR, ANEU, BMP, MG #### [address] [address] Basophils/100 WBC (Bld) 0.2 % Normal 0.0-2.5 [facility] Comment on above: Performed By: #### A DIFF, CBC, GFR, ANEU, BMP, MG #### [address] [address] Eosinophil, Absolute 0.0 10 3/mcL Normal 0.0-0.7 [facility] Comment on above: Performed By: #### A DIFF, CBC, GFR, ANEU, BMP, MG #### [address] [address] Eosinophils/100 WBC (Bld) 0.1 % Normal 0.0-6.0 [facility] Comment on above: Performed By: #### A DIFF, CBC, GFR, ANEU, BMP, MG #### [address] [address] Lymphocyte, Absolute 2.1 10 3/mcL Normal 0.9-4.3 [facility] Comment on above: Performed By: #### A DIFF, CBC, GFR, ANEU, BMP, MG #### [address] [address] Lymphocytes/100 WBC (Bld) 17.4 % Low 20.0-40.0 [facility] Comment on above: Performed By: #### A DIFF, CBC, GFR, ANEU, BMP, MG #### [address] [address] Monocyte, Absolute 1.0 10 3/mcL Normal 0.1-1.4 [facility] Comment on above: Performed By: #### A DIFF, CBC, GFR, ANEU, BMP, MG #### [address] [address] Monocytes/100 WBC (Bld) 8.2 % Normal 2.0-13.0 [facility] Comment on above: Performed By: #### A DIFF, CBC, GFR, ANEU, BMP, MG #### [address] [address] Neutrophils/100 WBC (Bld) 74.1 % Normal 50.0-75.0 [facility] Comment on above: Performed By: #### A DIFF, CBC, GFR, ANEU, BMP, MG #### [address] [address] .GFRon 01-19-2024 GFR >60 Normal [facility] Comment on above: Result Comment: [...] DIFF, CBC, GFR, ANEU, BMP, MG #### [address] [address] GFR Non- 58 ml/min/1.73sqm [facility] Comment on above: Result Comment: [...] DIFF, CBC, GFR, ANEU, BMP, MG #### [address] [address] .NEUABSon 01-19-2024 Neutrophil, Absolute 8.8 10 3/mcL High 2.3-8.1 [facility] Comment on above: Performed By: #### A DIFF, CBC, GFR, ANEU, BMP, MG #### [address] [address] APTTon 01-19-2024 aPTT Coag (Bld) [Time] 51.4 s High 25.0-35.0 [facility] Comment on above: Result Comment: For Heparin anticoagulation therapy, the recommended therapeutic range is: 54-77 seconds (APTT Correlation with Anti-Xa therapeutic range of 0.3-0.7 units/ml). PLEASE REFERENCE THE PHARMACY PROTOCOL FOR DOSING. Performed By: #### A DIFF, CBC, GFR, ANEU, BMP, MG #### [address] [address] aPTT Coag (Bld) [Time] 47.6 s High 25.0-35.0 [facility] Comment on above: Result Comment: For Heparin anticoagulation therapy, the recommended therapeutic range is: 54-77 seconds (APTT Correlation with Anti-Xa therapeutic range of 0.3-0.7 units/ml). PLEASE REFERENCE THE PHARMACY PROTOCOL FOR DOSING. Performed By: #### A DIFF, CBC, GFR, ANEU, BMP, MG #### [address] [address] aPTT Coag (Bld) [Time] 49.7 s High 25.0-35.0 [facility] Comment on above: Result Comment: Spec imen hemolyzed. Results may be affected. For Heparin anticoagulation therapy, the recommended therapeutic range is: 54-77 seconds (APTT Correlation with Anti-Xa therapeutic range of 0.3-0.7 units/ml). PLEASE REFERENCE THE PHARMACY PROTOCOL FOR DOSING. Performed By: #### A DIFF, CBC, GFR, ANEU, BMP, MG #### [address] [address] BMPon 01-19-2024 BUN/Creatinine Ratio 17.2 ratio Normal 10.0-22.0 [facility] Comment on above: Performed By: #### A DIFF, CBC, GFR, ANEU, BMP, MG #### [address] [address] Calcium [Mass/Vol] 9.4 mg/dL Normal 8.7-10.4 [facility] Comment on above: Performed By: #### A DIFF, CBC, GFR, ANEU, BMP, MG #### [address] [address] Chloride [Moles/Vol] 103 mmol/L Normal 98-110 [facility] Comment on above: Performed By: #### A DIFF, CBC, GFR, ANEU, BMP, MG #### [address] [address] CO2 [Moles/Vol] 22 mmol/L Normal 22-32 [facility] Comment on above: Performed By: #### A DIFF, CBC, GFR, ANEU, BMP, MG #### [place] [id number] Creatinine [Mass/Vol] 0.93 mg/dL Normal 0.50-1.20 [facility] Comment on above: Result Comment: Test ing performed on [employer] analyzer using enzymatic creatinine methodology. Performed By: #### A DIFF, CBC, GFR, ANEU, BMP, MG #### [place] [address] Electrolyte Balance 9.0 mEq/L Normal 4.0-15.[address] [facility] Comment on above: Performed By: #### A DIFF, CBC, GFR, ANEU, BMP, MG #### [address] [address] Glucose [Mass/Vol] 143 mg/dL High 82-115 [facility] Comment on above: Performed By: #### A DIFF, CBC, GFR, ANEU, BMP, MG #### [address] [address] Potassium [Moles/Vol] 3.2 mmol/L Low 3.5-5.0 [facility] Comment on above: Performed By: #### A DIFF, CBC, GFR, ANEU, BMP, MG #### [address] [address] Sodium [Moles/Vol] 134 mmol/L Low 136-145 [facility] Comment on above: Performed By: #### A DIFF, CBC, GFR, ANEU, BMP, MG #### [place] [address] Urea nitrogen [Mass/Vol] 16.0 mg/dL Normal 8.0-22.0 [facility] Comment on above: Performed By: #### A DIFF, CBC, GFR, ANEU, BMP, MG #### [place] [address] CBCon 01-19-2024 Erythrocyte distribution width (RBC) [Ratio] 13.9 % Normal 11.5-15.5 [facility] Comment on above: Performed By: #### A DIFF, CBC, GFR, ANEU, BMP, MG #### [place] [address] Hematocrit (Bld) [Volume fraction] 35.5 % Normal 34.0-46.0 [facility] Comment on above: Performed By: #### A DIFF, CBC, GFR, ANEU, BMP, MG #### [place] [address] Hgb 12.0 G/dL Normal 12.0-16.0 [facility] Comment on above: Performed By: #### A DIFF, CBC, GFR, ANEU, BMP, MG #### [place] [address] MCH (RBC) [Entitic mass] 30.7 pg Normal 27.0-33.0 [facility] Comment on above: Performed By: #### A DIFF, CBC, GFR, ANEU, BMP, MG #### [place] [address] MCHC 33.7 G/dL Normal 32.0-36.0 [facility] Comment on above: Performed By: #### A DIFF, CBC, GFR, ANEU, BMP, MG #### [place] [address] MCV (RBC) [Entitic vol] 90.9 fL Normal 80.0-99.0 [facility] Comment on above: Performed By: #### A DIFF, CBC, GFR, ANEU, BMP, MG #### [address] [address] Platelet 226 10 3/mcL Normal 150-450 [facility] Comment on above: Performed By: #### A DIFF, CBC, GFR, ANEU, BMP, MG #### [address] [address] Platelet mean volume (Bld) [Entitic vol] 9.0 fL Normal 6.6-10.5 [facility] Comment on above: Performed By: #### A DIFF, CBC, GFR, ANEU, BMP, MG #### [address] [address] RBC 3.90 10 6/mcL Low 4.10-5.30 [facility] Comment on above: Performed By: #### A DIFF, CBC, GFR, ANEU, BMP, MG #### [address] [address] WBC 11.8 10 3/mcL High 4.5-10.8 [facility] Comment on above: Performed By: #### A DIFF, CBC, GFR, ANEU, BMP, MG #### [address] [address] LABORATORYOrdered By: SYSTEM SYSTEM on 01-19-2024 aPTT [...] 0.2 % Normal 0.0 - 2.5 % AH Workflow SS Calcium [Mass/Vol] 9.4 mg/dL Normal 8.7 - 10. 4 mg/dL ADM SS Chloride [Moles/Vol] 103 mmol/L Normal 98 - 11 0 mEq/L ADM SS CO2 [Moles/Vol] 22 mmol/L Normal 22 - 32 mEq/L ADM SS Creatinine [Mass/Vol] 0.93 mg/dL Normal 0.50 - 1.20 mg/dL ADM SS Comment on above: Interpretive Data: T esting performed on [employer] analyzer using enzymatic creatinine methodology. Electrolyte Balance [...] 143 mg/dL High 82 - 115 mg/dL AH ADM SS Hematocrit (Bld) [Volume fraction] 35.5 [...] mg/dL Normal 1.6 - 2 .4 mg/dL AH ADM SS MCH (RBC) [Entitic mass] 30.7 pg Normal 27.0 - 33.0 pg AH Workflow SS MCHC 33.7 G/dL Normal 32.0 [...] 9.0 fL Normal 6.6 - 10.5 fL AH Workflow SS Platelets (Bld) [#/Vol] 226 103/mcL [...] 01-19-2024 Magnesium [Mass/Vol] 1.8 mg/dL Normal 1.6-2.4 [facility] Comment on above: Performed By: #### A DIFF, CBC, GFR, ANEU, BMP, MG #### [address] [address] .Auto Diffon 01-18-2024 Basophil, Absolute 0.0 10 3/mcL Normal 0.0-0.3 [facility] Comment on above: Performed By: #### A DIFF, CBC, GFR, ANEU, BMP, MG #### [address] [address] Basophils/100 WBC (Bld) 0.2 % Normal 0.0-2.5 [facility] Comment on above: Performed By: #### A DIFF, CBC, GFR, ANEU, BMP, MG #### [address] [address] Eosinophil, Absolute 0.0 10 3/mcL Normal 0.0-0.7 [facility] Comment on above: Performed By: #### A DIFF, CBC, GFR, ANEU, BMP, MG #### [address] [address] Eosinophils/100 WBC (Bld) 0.0 % Normal 0.0-6.0 [facility] Comment on above: Performed By: #### A DIFF, CBC, GFR, ANEU, BMP, MG #### [address] [address] Lymphocyte, Absolute 0.6 10 3/mcL Low 0.9-4.3 [facility] Comment on above: Performed By: #### A DIFF, CBC, GFR, ANEU, BMP, MG #### [address] [address] Lymphocytes/100 WBC (Bld) 5.8 % Low 20.0-40.0 [facility] Comment on above: Performed By: #### A DIFF, CBC, GFR, ANEU, BMP, MG #### [address] [address] Monocyte, Absolute 0.4 10 3/mcL Normal 0.1-1.4 [facility] Comment on above: Performed By: #### A DIFF, CBC, GFR, ANEU, BMP, MG #### [address] [address] Monocytes/100 WBC (Bld) 3.7 % Normal 2.0-13.0 [facility] Comment on above: Performed By: #### A DIFF, CBC, GFR, ANEU, BMP, MG #### [address] [address] Neutrophils/100 WBC (Bld) 90.3 % High 50.0-75.0 [facility] Comment on above: Performed By: #### A DIFF, CBC, GFR, ANEU, BMP, MG #### [address] [address] .GFRon 01-18-2024 GFR >60 Normal [facility] Comment on above: Result Comment: [...] DIFF, CBC, GFR, ANEU, BMP, MG #### [address] [address] GFR Non- >60 Normal [facility] Comment on above: Result Comment: [...] DIFF, CBC, GFR, ANEU, BMP, MG #### [address] [address] .NEUABSon 01-18-2024 Neutrophil, Absolute 9.8 10 3/mcL High 2.3-8.1 [facility] Comment on above: Performed By: #### A DIFF, CBC, GFR, ANEU, BMP, MG #### [address] [address] 12 Lead EKGon 01-18-2024 12 Lead EKG [facility] Cardiovascular Services [address] [place] [address] 12 Lead EKG 01/18/24 0045 MR#: [id number] Acct: [id number] Name: KALINA RUDD Rep #: [id number] : 1940 83 From: Valdemar Kimble MD [...] COMPARISON REQUIRED DATA IS UNCONFIRMED Confirmed by SHYANNE TERRAZAS, VALDEMAR ([id number]), editorial specialist EMILY MANTILLA ([id number]) on 01/20/2024 6:10:01 AM Referred By: Cynthia Confirmed By: VALDEMAR KIMBLE MD 01/20/24 0610 Date Valdemar Kimble MD CC: Dr. Billy Wise MD; Dr. Karen Resendiz MD Signed Normal [facility] APTTon 01-18-2024 aPTT Coag (Bld) [Time] 86.9 s High 25.0-35.0 [facility] Comment on above: Result Comment: For Heparin anticoagulation therapy, the recommended therapeutic range is: 54-77 seconds (APTT Correlation with Anti-Xa therapeutic range of 0.3-0.7 units/ml). PLEASE REFERENCE THE PHARMACY PROTOCOL FOR DOSING. Performed By: #### A DIFF, CBC, GFR, ANEU, BMP, MG #### [address] [address] aPTT Coag (Bld) [Time] 58.6 s High 25.0-35.0 [facility] Comment on above: Result Comment: Spec imen hemolyzed. Results may be affected. For Heparin anticoagulation therapy, the recommended therapeutic range is: 54-77 seconds (APTT Correlation with Anti-Xa therapeutic range of 0.3-0.7 units/ml). PLEASE REFERENCE THE PHARMACY PROTOCOL FOR DOSING. Performed By: #### A DIFF, CBC, GFR, ANEU, BMP, MG #### [address] [address] aPTT Coag (Bld) [Time] 94.6 s High 25.0-35.0 [facility] Comment on above: Result Comment: For Heparin anticoagulation therapy, the recommended therapeutic range is: 54-77 seconds (APTT Correlation with Anti-Xa therapeutic range of 0.3-0.7 units/ml). PLEASE REFERENCE THE PHARMACY PROTOCOL FOR DOSING. Performed By: #### A DIFF, CBC, GFR, ANEU, BMP, MG #### [address] [address] aPTT Coag (Bld) [Time] 100.6 s High 25.0-35.0 [facility] Comment on above: Result Comment: For Heparin anticoagulation therapy, the recommended therapeutic range is: 54-77 seconds (APTT Correlation with Anti-Xa therapeutic range of 0.3-0.7 units/ml). PLEASE REFERENCE THE PHARMACY PROTOCOL FOR DOSING. Performed By: #### A DIFF, CBC, GFR, ANEU, BMP, MG #### [address] [address] BMPon 01-18-2024 BUN/Creatinine Ratio 25.6 ratio High 10.0-22.0 [facility] Comment on above: Performed By: #### A DIFF, CBC, GFR, ANEU, BMP, MG #### [address] [address] Calcium [Mass/Vol] 9.9 mg/dL Normal 8.7-10.4 [facility] Comment on above: Performed By: #### A DIFF, CBC, GFR, ANEU, BMP, MG #### [address] [address] Chloride [Moles/Vol] 106 mmol/L Normal 98-110 [facility] Comment on above: Performed By: #### A DIFF, CBC, GFR, ANEU, BMP, MG #### [address] [address] CO2 [Moles/Vol] 21 mmol/L Low 22-32 [facility] Comment on above: Performed By: #### A DIFF, CBC, GFR, ANEU, BMP, MG #### [place] [id number] Creatinine [Mass/Vol] 0.78 mg/dL Normal 0.50-1.20 [facility] Comment on above: Result Comment: Test ing performed on [employer] analyzer using enzymatic creatinine methodology. Performed By: #### A DIFF, CBC, GFR, ANEU, BMP, MG #### [place] [address] Electrolyte Balance 9.0 mEq/L Normal 4.0-15.[address] [facility] Comment on above: Performed By: #### A DIFF, CBC, GFR, ANEU, BMP, MG #### [place] [id number] Glucose [Mass/Vol] 155 mg/dL High 82-115 [facility] Comment on above: Performed By: #### A DIFF, CBC, GFR, ANEU, BMP, MG #### [place] [address] Potassium [Moles/Vol] 4.1 mmol/L Normal 3.5-5.0 [facility] Comment on above: Result Comment: Spec imen slightly hemolyzed. Performed By: #### A DIFF, CBC, GFR, ANEU, BMP, MG #### [place] [id number] Sodium [Moles/Vol] 136 mmol/L Normal 136-145 [facility] Comment on above: Performed By: #### A DIFF, CBC, GFR, ANEU, BMP, MG #### [place] [id number] Urea nitrogen [Mass/Vol] 20.0 mg/dL Normal 8.0-22.0 [facility] Comment on above: Performed By: #### A DIFF, CBC, GFR, ANEU, BMP, MG #### [place] [id number] CBCon 01-18-2024 Erythrocyte distribution width (RBC) [Ratio] 13.7 % Normal 11.5-15.5 [facility] Comment on above: Performed By: #### A DIFF, CBC, GFR, ANEU, BMP, MG #### [place] [address] Hematocrit (Bld) [Volume fraction] 42.2 % Normal 34.0-46.0 [facility] Comment on above: Performed By: #### A DIFF, CBC, GFR, ANEU, BMP, MG #### [place] [address] Hgb 14.5 G/dL Normal 12.0-16.0 [facility] Comment on above: Performed By: #### A DIFF, CBC, GFR, ANEU, BMP, MG #### [place] [address] MCH (RBC) [Entitic mass] 31.0 pg Normal 27.0-33.0 [facility] Comment on above: Performed By: #### A DIFF, CBC, GFR, ANEU, BMP, MG #### [place] [address] MCHC 34.4 G/dL Normal 32.0-36.0 [facility] Comment on above: Performed By: #### A DIFF, CBC, GFR, ANEU, BMP, MG #### [place] [address] MCV (RBC) [Entitic vol] 90.3 fL Normal 80.0-99.0 [facility] Comment on above: Performed By: #### A DIFF, CBC, GFR, ANEU, BMP, MG #### [place] [id number] Platelet 233 10 3/mcL Normal 150-450 [facility] Comment on above: Performed By: #### A DIFF, CBC, GFR, ANEU, BMP, MG #### [place] [address] Platelet mean volume (Bld) [Entitic vol] 8.5 fL Normal 6.6-10.5 [facility] Comment on above: Performed By: #### A DIFF, CBC, GFR, ANEU, BMP, MG #### [facility] [address] [place] [address] RBC 4.68 10 6/mcL Normal 4.10-5.30 [facility] Comment on above: Performed By: #### A DIFF, CBC, GFR, ANEU, BMP, MG #### [facility] [address] [place] [address] WBC 10.9 10 3/mcL High 4.5-10.8 [facility] Comment on above: Performed By: #### A DIFF, CBC, GFR, ANEU, BMP, MG #### [facility] [address] [place] [address] CBC-Complete Blood Cnt No Di ffon 01-18-2024 HCT Normal 37-47 [facility] Comment on above: Result Comment: Canc elled via OM: Order cancelled - Patient discharged Performed By: #### L 501.5200, L501.9520, L500.2500, L501.4021 #### [facility] [address] [place], [address] HGB Normal 12.0-15.0 [facility] Comment on above: Result Comment: Canc elled via OM: Order cancelled - Patient discharged Performed By: #### L 501.5200, L501.9520, L500.2500, L501.4021 #### [facility] [address] [place], [address] MCH Normal 27.0-32.0 [facility] Comment on above: Result Comment: Canc elled via OM: Order cancelled - Patient discharged Performed By: #### L 501.5200, L501.9520, L500.2500, L501.4021 #### [facility] [address] [place], [address] MCHC Normal 32-36 [facility] Comment on above: Result Comment: Canc elled via OM: Order cancelled - Patient discharged Performed By: #### L 501.5200, L501.9520, L500.2500, L501.4021 #### [facility] [address] [place], [address] MCV Normal 81-99 [facility] Comment on above: Result Comment: Canc elled via OM: Order cancelled - Patient discharged Performed By: #### L 501.5200, L501.9520, L500.2500, L501.4021 #### [facility] [address] [place], [address] PLT Normal 150-450 [facility] Comment on above: Result Comment: Canc elled via OM: Order cancelled - Patient discharged Performed By: #### L 501.5200, L501.9520, L500.2500, L501.4021 #### [facility] [address] [place], [address] RBC Normal 4.2-5.4 [facility] Comment on above: Result Comment: Canc elled via OM: Order cancelled - Patient discharged Performed By: #### L 501.5200, L501.9520, L500.2500, L501.4021 #### [facility] [address] [place], [address] RDW CV Normal 11.6-14.6 [facility] Comment on above: Result Comment: Canc elled via OM: Order cancelled - Patient discharged Performed By: #### L 501.5200, L501.9520, L500.2500, L501.4021 #### [facility] [address] [place], [address] RDW SD Normal 35.1-43.9 [facility] Comment on above: Result Comment: Canc elled via OM: Order cancelled - Patient discharged Performed By: #### L 501.5200, L501.9520, L500.2500, L501.4021 #### [facility] [address] [place], [address] WBC Normal 4.4-11.0 [facility] Comment on above: Result Comment: Canc elled via OM: Order cancelled - Patient discharged Performed By: #### L 501.5200, L501.9520, L500.2500, L501.4021 #### [facility] [address] [place], [address] CVS/PCIREPORTon 01-18-2024 CVS/PCIREPORT [facility] Cardi[facility] Services [address] [place] [address] MR#: [id number] Acct: [id number] Name: KALINA RUDD Rep #: [id number] : 1940 83 From: Billy Wise MD Primary Care: Dr. Karen Resendiz MD Status: ADM IN Referring Dr: Sex: F C PCI Cardiac Cath Report PCI Report: Cardiac cath report. Procedure performed; 1. Access from the right common femoral artery with placement of 6 [place] sheath 2. Selective left coronary angiography 3. [...] Brilinta aspirin. And was brought into the [facility] for further Had history of hypertension she [...] blood pressure was significant elevated in the [facility] around 170 mmHg. She still having mild [...] a tertiary facility No complication in the [facility] patient remains stable clinically. Billy Wise MD,[facility] deputy sheriff 01/18/2423 Date Billy Wise MD CC: Dr. Billy Wise MD; Dr. Karen Resendiz MD Date Dictated: 01/18/2413 Date Transcribed: 01/18/2413 Cigarette Paper Tester: FB Signed Normal [facility] Comprehensive Metabolic Prof ilon 01-18-2024 ALB Normal 3.2-5.0 [facility] Comment on above: Result Comment: Canc elled via OM: Order cancelled - Patient discharged Performed By: #### L 501.5200, L501.9520, L500.2500, L501.4021 #### [facility] [address] [place], [address] ALK P Normal 45-117 [facility] Comment on above: Result Comment: Canc elled via OM: Order cancelled - Patient discharged Performed By: #### L 501.5200, L501.9520, L500.2500, L501.4021 #### [facility] [address] [place], [address] ALT Normal 13-56 [facility] Comment on above: Result Comment: Canc elled via OM: Order cancelled - Patient discharged Performed By: #### L 501.5200, L501.9520, L500.2500, L501.4021 #### [facility] [address] [place], [address] AST Normal 15-37 [facility] Comment on above: Result Comment: Canc elled via OM: Order cancelled - Patient discharged Performed By: #### L 501.5200, L501.9520, L500.2500, L501.4021 #### [facility] [address] [place], [address] BUN Normal 7-18 [facility] Comment on above: Result Comment: Canc elled via OM: Order cancelled - Patient discharged Performed By: #### L 501.5200, L501.9520, L500.2500, L501.4021 #### [facility] [address] [place], [address] BUN/CRE Normal 10-20 [facility] Comment on above: Result Comment: Canc elled via OM: Order cancelled - Patient discharged Performed By: #### L 501.5200, L501.9520, L500.2500, L501.4021 #### [facility] [address] [place], [address] CA,Total Normal 8.5-10.1 [facility] Comment on above: Result Comment: Canc elled via OM: Order cancelled - Patient discharged Performed By: #### L 501.5200, L501.9520, L500.2500, L501.4021 #### [facility] [address] [place], [address] CL Normal 98-107 [facility] Comment on above: Result Comment: Canc elled via OM: Order cancelled - Patient discharged Performed By: #### L 501.5200, L501.9520, L500.2500, L501.4021 #### [facility] [address] [place], [address] CO2 Normal 21.0-32.0 [facility] Comment on above: Result Comment: Canc elled via OM: Order cancelled - Patient discharged Performed By: #### L 501.5200, L501.9520, L500.2500, L501.4021 #### [facility] [address] [place], [address] CREAT,SERUM Normal 0.55-1.02 [facility] Comment on above: Result Comment: Canc elled via OM: Order cancelled - Patient discharged Performed By: #### L 501.5200, L501.9520, L500.2500, L501.4021 #### [facility] [address] [place], [address] EST GFR Normal >60 [facility] Comment on above: Result Comment: Canc elled via OM: Order cancelled - Patient discharged Performed By: #### L 501.5200, L501.9520, L500.2500, L501.4021 #### [facility] [address] [place], [address] EST GFR - AA Normal >60 [facility] Comment on above: Result Comment: Canc elled via OM: Order cancelled - Patient discharged Performed By: #### L 501.5200, L501.9520, L500.2500, L501.4021 #### [facility] [address] [place], [address] GAP Normal 5-15 [facility] Comment on above: Result Comment: Canc elled via OM: Order cancelled - Patient discharged Performed By: #### L 501.5200, L501.9520, L500.2500, L501.4021 #### [facility] [address] [place], [address] GLU Normal 74-106 [facility] Comment on above: Result Comment: Canc elled via OM: Order cancelled - Patient discharged Performed By: #### L 501.5200, L501.9520, L500.2500, L501.4021 #### [facility] [address] [place], [address] Potassium Normal 3.5-5.1 [facility] Comment on above: Result Comment: Canc elled via OM: Order cancelled - Patient discharged Performed By: #### L 501.5200, L501.9520, L500.2500, L501.4021 #### [facility] [address] [place], [address] T BILI Normal 0.20-1.00 [facility] Comment on above: Result Comment: Canc elled via OM: Order cancelled - Patient discharged Performed By: #### L 501.5200, L501.9520, L500.2500, L501.4021 #### [facility] [address] [place], [address] T PROT Normal 6.4-8.2 [facility] Comment on above: Result Comment: Canc elled via OM: Order cancelled - Patient discharged Performed By: #### L 501.5200, L501.9520, L500.2500, L501.4021 #### [facility] [address] [place], [address] Comprehensive Metabolic Profil Normal 136-145 [facility] Comment on above: Result Comment: Canc elled via OM: Order cancelled - Patient discharged Performed By: #### L 501.5200, L501.9520, L500.2500, L501.4021 #### [facility] [address] [place], [address] Consultation - Cardiologyon 01-18-2024 Consultation - Cardiology [facility] Medical Records Department [address] [place] [address] Consultation - Cardiology 01/18/24 0029 MR#: [id number] Acct: [id number] Name: KALINA RUDD Rep #: [id number] : 1940 83 From: Billy Wise MD PCP: Dr. Karen Resendiz MD Status:DEP [facility] Plan Assessment/Plan (1) Fibromyalgia: (2) HTN (hypertension): (3) Acute coronary syndrome: (4) Abnormal EKG: PLAN: Cardiac care plan recommendations; 83-year-old patient brought in by the family to the ED at [facility] With a history of hypertension [...] presentation I took the patient to the Main Line [facility] for further evaluation Her radial access was difficult and then we went from the right common femoral artery obtain an access and placed 6 Ugandan sheath and then we will proceed with the diagnostic catheter and we noted the patient had very complex coronary lesion involving the left circumflex artery proximally around subtotal 99 tortuous And the Pharis large obtuse marginal had a subtotal 99% The OM 2 is occluded In the distal circumflex artery atherosclerosis distally with possible occluded distal circumflex There is [id number] collateral The left main is calcified however [...] Also noted patient developed V-fib in the Main Line As[employer]er requiring to be shocked 3 times to maintain sinus rhythm and she was given amiodarone 150 mg IV in the [facility] Line [employer]. Patient started on nitroglycerin IV she was given aspirin and she was given amiodarone, Brilinta in the ER. Suture applied to right common femoral artery sheath. Also started on atorvastatin. Nitroglycerin drip. Billy Wise MD,[facility] deputy sheriff HPI Consult Data Date of Consult: 03/12/24 HPI Narrative Reason for Consultation: Acute coronary syndrome/diffuse ST depression with chest pain HPI Narrative: KALINA RUDD, is a 83 F who presents [facility] Medical History History of left heart catheterization [...] PO QDAY (more content not included)... Normal [facility] H AND P Exam - Hospitaliston 01-18-2024 H&P Exam - Hospitalist [facility] Medical Records Department [address] [place] [address] H P Exam - Hospitalist 01/18/24 0016 MR#: [id number] Acct: [id number] Name: KALINA RUDD Rep #: [id number] : 1940 83 From: Vazquez Woodard DO PCP: Dr. Karen Resendiz MD Status:DIS IN Location: ICU [id number] HPI - General General Date of Admission: [...] trazodone (?), and osteoarthritis who presents to [facility] ER initially complaining of uncontrolled [...] go to a tertiary care center at [facility] by masonry installer whose help is greatly appreciated. The patient was briefly moved to the ICU where she was started on IV nitroglycerin with an additional dose of IV morphine given to control her ongoing chest pain. This is a same-day admission and discharge. [facility] Home Medications ???Medication ???Instructions ???Recorded ???Last Taken [...] Rate 18 (more content not included)... Normal [facility] HFPon 01-18-2024 Bili Indirect 0.8 mg/dL Normal 0.1-10.0 [facility] Comment on above: Performed By: #### A DIFF, CBC, GFR, ANEU, BMP, MG #### [address] [address] Albumin Level 3.7 G/dL Normal 3.2-4.8 [facility] Comment on above: Performed By: #### A DIFF, CBC, GFR, ANEU, BMP, MG #### [place] [id number] [place] [address] Albumin/Globulin [Mass ratio] 1.0 {ratio} Normal 0.9-1.6 [facility] Comment on above: Performed By: #### A DIFF, CBC, GFR, ANEU, BMP, MG #### [place] [address] ALP [Catalytic activity/Vol] 121 U/L Normal 38-126 [facility] Comment on above: Performed By: #### A DIFF, CBC, GFR, ANEU, BMP, MG #### [place] [address] ALT [Catalytic activity/Vol] 37 U/L Normal 10-49 [facility] Comment on above: Performed By: #### A DIFF, CBC, GFR, ANEU, BMP, MG #### [place] [address] AST [Catalytic activity/Vol] 67 U/L High 8-34 [facility] Comment on above: Performed By: #### A DIFF, CBC, GFR, ANEU, BMP, MG #### [place] [address] Bili Direct 0.2 mg/dL Normal 0.0-0.4 [facility] Comment on above: Result Comment: Use of this assay is not recommended for patients undergoing treatment with eltrombopag due to the potential for falsely elevated results. Performed By: #### A DIFF, CBC, GFR, ANEU, BMP, MG #### [place] [address] Bili Total 1.00 mg/dL Normal 0.20-1.20 [facility] Comment on above: Result Comment: Use of this assay is not recommended for patients undergoing treatment with eltrombopag due to the potential for falsely elevated results. Performed By: #### A DIFF, CBC, GFR, ANEU, BMP, MG #### [place] [address] Globulin 3.6 G/dL Normal 1.5-3.8 [facility] Comment on above: Performed By: #### A DIFF, CBC, GFR, ANEU, BMP, MG #### [place] [address] Total Protein 7.3 G/dL Normal 5.7-8.2 [facility] Comment on above: Performed By: #### A DIFF, CBC, GFR, ANEU, BMP, MG #### [facility] [address] [place] [address] LABORATORYOrdered By: SYSTEM SYSTEM on 01-18-2024 Troponin I.cardiac DL <= 0.01 ng/mL [Mass/Vol] 1456 ng/L High 0 - 34 ng/L ADM SS Comment on above: Interpretive Data: High Sensitive Troponin I Reference Ranges: Female: 0-34 ng/L Male: 0-54 ng/L Testing performed on [employer] IM analyzer using direct chemiluminescent technology. Albumin [...] above: Interpretive Data: T esting performed on [employer] analyzer using enzymatic creatinine methodology. Electrolyte Balance [...] 42.2 % Normal 34.0 - 46.0 % AH Workflow SS Hemoglobin (Bld) [Mass/Vol] 14.5 G/dL Normal 12.0 - 16.0 G/dL AH Workflow SS Lymphocytes (Bld) [#/Vol] 0.6 103/mcL Low 0.9 - 4.3 10^3/mcL Workflow SS Lymphocytes/100 WBC (Bld) 5.8 % Low 20.0 - 40.0 % AH Workflow SS Magnesium [Mass/Vol] 1.9 mg/dL Normal 1.6 - 2 .4 mg/dL ADM SS MCH (RBC) [Entitic mass] 31.0 pg Normal 27.0 - 33.0 pg AH Workflow SS MCHC 34.4 G/dL Normal 32.0 - 36.0 G/dL AH Workflow SS MCV (RBC) [Entitic vol] 90.3 fL Normal 80.0 - 99.0 fL Workflow SS Monocytes (Bld) [#/Vol] 0.4 103/mcL Normal 0.1 - 1.4 10^3/mcL AH Workflow SS Monocytes/100 WBC (Bld) 3.7 % Normal 2.0 - 13.0 % Workflow SS Natriuretic peptide.B prohormone N-Terminal IA [Mass/Vol] 1067 pg/mL Normal 0 - 1800 pg/mL ADM SS Neutrophils (Bld) [#/Vol] 9.8 103/mcL High 2.3 - 8.1 10^3/mcL AH Workflow SS Neutrophils/100 WBC (Bld) 90.3 % High 50.0 - 75.0 % Workflow SS Phosphate [Mass/Vol] 2.5 mg/dL Normal 2.4 - 5 .1 mg/dL ADM Comment on above: Interpretive Data: * *Note - New Reference Range in effect 19 Platelet mean volume (Bld) [Entitic vol] 8.5 fL Normal 6.6 - 10.5 fL Workflow Platelets (Bld) [#/Vol] 233 103/mcL Normal 150 - 450 10^3/mcL Workflow SS Potassium [Moles/Vol] 4.1 mmol/L Normal 3.5 - 5.0 mEq/L [facility] Comment on above: Result Comment: Spec imen [...] Normal 9.0 - 1 4.4 seconds [facility] Comment on above: Interpretive Data: E ffective 08/25/07, Protime results may be affected by some antibiotics (i.e. Ciprofloxacin, Azithromycin, Bactrim) which may potentiate the action of oral anticoagulants, with further increases in Protime/INR. RBC (Bld) [#/Vol] 4.68 106/mcL Normal 4.10 - 5.3 0 10^6/mcL Workflow SS Sodium [Moles/Vol] 136 mmol/L Normal 136 - 145 mEq/L [facility] Troponin I.cardiac DL <= 0.01 ng/mL [Mass/Vol] 673 ng/L High 0 - 34 ng/L [facility] Comment on above: Interpretive Data: High Sensitive Troponin I Reference Ranges: Female: 0-34 ng/L Male: 0-54 ng/L Testing performed on [employer] analyzer using direct chemiluminescent technology. TSH Qn 2.587 mIU/mL Normal 0.550 - 4.780 mIU/mL ADM SS Urea nitrogen [Mass/Vol] 20.0 mg/dL [...] 222 mg/dL High 50 - 199 mg/dL AH ADM SS Comment on above: Interpretive Data: C holesterol Reference Interval: Less than 200 Desirable 200-239 Borderline high risk 240 and above High risk Cholesterol in HDL [Mass/Vol] 55 mg/dL Normal 40 - 59 mg/dL AH ADM SS Cholesterol in LDL [Mass/Vol] 148 mg/dL High 0 - 129 mg/dL ADM SS Triglyceride [Mass/Vol] 97 mg/dL Normal 3 - 149 mg/dL ADM SS LIPIDon 01-18-2024 Cholesterol [Mass/Vol] 222 mg/dL High 50-199 [facility] Comment on above: Result Comment: Chol esterol Reference Interval: Less than 200 Desirable 200-239 Borderline high risk 240 and above High risk Performed By: #### A DIFF, CBC, GFR, ANEU, BMP, MG #### [address] [address] Cholesterol in HDL [Mass/Vol] 55 mg/dL Normal 40-59 [facility] Comment on above: Performed By: #### A DIFF, CBC, GFR, ANEU, BMP, MG #### [address] [address] Cholesterol in LDL [Mass/Vol] 148 mg/dL High 0-129 [facility] Comment on above: Performed By: #### A DIFF, CBC, GFR, ANEU, BMP, MG #### [address] [address] Triglyceride [Mass/Vol] 97 mg/dL Normal 3-149 [facility] Comment on above: Performed By: #### A DIFF, CBC, GFR, ANEU, BMP, MG #### [address] [address] MGon 01-18-2024 Magnesium [Mass/Vol] 1.9 mg/dL Normal 1.6-2.4 [facility] Comment on above: Performed By: #### A DIFF, CBC, GFR, ANEU, BMP, MG #### [address] [address] No Panel InformationOrdered By: SYSTEM SYSTEM on 01-18-2024 PT International Ratio 1.0 ratio Invalid Interpretation Code ELICIA [facility] SS Comment on above: Interpretive Data: Carlee leroy [employer] (CHEST, 1992, 102:312S-25S) recommended therapeutic range for oral anticoagulant therapy is: LOW RISK: Prophylaxis of venous thrombosis INR: 2.0-3.0 Treatment of pulmonary embolism 2.0-3.0 Prevention of systemic embolism 2.0-3.0 HIGH RISK: Mechanical prosthetic valves 2.5-3.5 PBNPon 01-18-2024 Natriuretic peptide B (Bld) [Mass/Vol] 1067 pg/mL Normal 0-1800 [facility] Comment on above: Performed By: #### A DIFF, CBC, GFR, ANEU, BMP, MG #### [address] [address] PHOSon 01-18-2024 Phosphate [Mass/Vol] 2.5 mg/dL Normal 2.4-5.1 [facility] Comment on above: Result Comment: No te - New Reference Range in effect 19 Performed By: #### A DIFF, CBC, GFR, ANEU, BMP, MG #### [place] [id number] PROon 01-18-2024 INR Coag (PPP) [Relative time] 1.0 {INR} Normal [facility] Comment on above: Result Comment: [employer] (CHEST, 1991, 102:312S-25S) recommended therapeutic range for oral anticoagulant therapy is: LOW RISK: Prophylaxis of venous thrombosis INR: 2.0-3.0 Treatment of pulmonary embolism 2.0-3.0 Prevention of systemic embolism 2.0-3.0 HIGH RISK: Mechanical prosthetic valves 2.5-3.5 Performed By: #### A DIFF, CBC, GFR, ANEU, BMP, MG #### [address] [address] PT Coag (PPP) [Time] 11.8 s Normal 9.0-14.4 [facility] Comment on above: Result Comment: Effe ctive 08/25/07, Protime results may be affected by some antibiotics (i.e. Ciprofloxacin, Azithromycin, Bactrim) which may potentiate the action of oral anticoagulants, with further increases in Protime/INR. Performed By: #### A DIFF, CBC, GFR, ANEU, BMP, MG #### [address] [address] INR Coag (PPP) [Relative time] 1.0 {INR} Normal [facility] Comment on above: Result Comment: [employer] (CHEST, 1991, 102:312S-25S) recommended therapeutic range for oral anticoagulant therapy is: LOW RISK: Prophylaxis of venous thrombosis INR: 2.0-3.0 Treatment of pulmonary embolism 2.0-3.0 Prevention of systemic embolism 2.0-3.0 HIGH RISK: Mechanical prosthetic valves 2.5-3.5 Performed By: #### A DIFF, CBC, GFR, ANEU, BMP, MG #### [place] [address] PT Coag (PPP) [Time] 11.9 s Normal 9.0-14.4 [facility] Comment on above: Result Comment: Effe ctive 08/25/07, Protime results may be affected by some antibiotics (i.e. Ciprofloxacin, Azithromycin, Bactrim) which may potentiate the action of oral anticoagulants, with further increases in Protime/INR. Performed By: #### A DIFF, CBC, GFR, ANEU, BMP, MG #### [address] 01-18-2024 High Sensitivity Troponin I 1456 ng/L High [address] [place] [address] MAIN Comment on above: Result Comment: High Sensitive Troponin I Reference Ranges: Female: 0-34 ng/L Male: 0-54 ng/L Testing performed on [employer] IM analyzer using direct chemiluminescent technology. Performed By: #### T ACE #### [place] [address] High Sensitivity Troponin I 673 ng/L [address] MAIN Comment on above: Result Comment: High Sensitive Troponin I Reference Ranges: Female: 0-34 ng/L Male: 0-54 ng/L Testing performed on [employer] IM analyzer using direct chemiluminescent technology. Performed By: #### A DIFF, CBC, GFR, ANEU, BMP, MG #### [place] [address] TSH 01-18-2024 TSH 2.587 mIU/mL Normal 0.550-4.780 [facility] Comment on above: Performed By: #### A DIFF, CBC, GFR, ANEU, BMP, MG #### [place] [address] UA 01-18-2024 Color (U) Yellow Normal [facility] Comment on above: Performed By: #### U A #### [place] [address] Glucose (U) [Mass/Vol] 100 mg/dL Abnormal Negative [facility] Comment on above: Performed By: #### U A #### [place] [address] Ketones Ql (U) 40 mg/dL Abnormal Neg-Trace [facility] Comment on above: Performed By: #### U A #### [place] [address] UA Appear Clear Normal Clear [facility] Comment on above: Performed By: #### U A #### [place] [address] UA Blood Negative Normal Neg-Trace [facility] Comment on above: Performed By: #### U A #### [place] [address] UA Leuk Est Negative Normal Negative [facility] Comment on above: Performed By: #### U A #### [place] [address] UA Nitrite Negative Normal Negative [facility] Comment on above: Performed By: #### U A #### [place] [address] UA pH 8.0 Normal 5.0 - 8.0 [facility] Comment on above: Performed By: #### U A #### [place] [address] UA Protein Trace Normal Negative [facility] Comment on above: Performed By: #### U A #### [place] [address] UA Spec Grav >=1.030 Abnormal 1.006-1.029 [facility] Comment on above: Performed By: #### U A #### [place] [address] UA Specimen Type Clean Catch [facility] Comment on above: Performed By: #### U A #### [place] [address] UA Urobilinogen 1.0 E.U./dL Normal 0.2-1.0 [facility] Comment on above: Performed By: #### U A #### [facility] [address] [place] [address] Urobilinogen (U) [Mass/Vol] Negative Normal Neg-Trace [facility] Comment on above: Performed By: #### U A #### [facility] [address] [place] [address] XR CHEST 1 VIEWon 01-18-2024 XR CHEST [...] 01/18/2024 5:35:45 AM Ordering Provider: KENNY KWAN [facility] 12 Lead EKGon 01-17-2024 12 Lead EKG [facility] Cardiovascular Services [address] [place] [address] 12 Lead EKG 01/17/24 2224 MR#: [id number] Acct: [id number] Name: KALINA RUDD Rep #: [id number] : 1940 83 From: Kenny Good MD [...] ischemia Abnormal ECG Confirmed by Kenny Good ([id number]), editorial specialist EMILY MANTILLA ([id number]) on 01/19/2024 9:06:56 AM Referred By: Confirmed By: Kenny Good 01/19/24 09 Date Kenny Good MD CC: Dr. Elmer Lujan DO; Dr. Billy Wise MD; Dr. Karen Resendiz MD Signed [facility] 12 Lead EKG [facility] Cardiovascular Services [address] [place] [address] 12 Lead EKG 01/17/24 2115 MR#: [id number] Acct: [id number] Name: KALINA RUDD Rep #: [id number] : 1940 83 From: Kenny Good MD [...] injury Abnormal ECG Confirmed by Kenny Good ([id number]), editorial specialist YASMIN VO ([id number]) on 01/19/2024 7:02:30 AM Referred By: Confirmed By: Kenny Good 01/19/24 07 Date Kenny Good MD CC: Dr. Elmer Lujan DO; Dr. Billy Wise MD; Dr. Kaern Resendiz MD Signed [facility] 12 Lead EKG [facility] Cardiovascular Services [address] [place] [address] 12 Lead EKG 01/17/242044 MR#: [id number] Acct: [id number] Name: KALINA RUDD Rep #: [id number] : 1940 83 From: Kenny Good MD [...] Abnormal ECG Confirmed by Kenny Good ([id number]), editorial specialist YASMIN VO ([id number]) on 01/19/2024 7:02:16 AM Referred By: Confirmed By: Kenny Good 01/19/24 0702 Date Kenny Good MD CC: Dr. Elmer Lujan DO; Dr. Billy Wise MD; Dr. Karen Resendiz MD Signed [facility] BNP,B-Type NATRIURETIC PEPTI David 01-17-2024 Natriuretic peptide B (Bld) [Mass/Vol] 87.2 pg/mL Normal 0-100 [facility] Comment on above: Performed By: #### L 100.0100, L500.2500, L501.4020, L503.6620 #### [facility] [address] [place], [address] Basic Metabolic Profile (BMP )on 01-17-2024 BUN/CRE 17.6 RATIO Normal 10-20 [facility] Comment on above: Order Comment: 'TROP ' Serial specimen #1, #2 or #3: 1 Performed By: #### L 100.0100, L500.2500, L501.4020, L503.6620 #### [facility] [address] [place], [address] CA,Total 9.6 mg/dL Normal 8.5-10.1 [facility] Comment on above: Order Comment: 'TROP ' Serial specimen #1, #2 or #3: 1 Performed By: #### L 100.0100, L500.2500, L501.4020, L503.6620 #### [facility] [address] [place], [address] Chloride [Moles/Vol] 106 mmol/L Normal 98-107 [facility] Comment on above: Order Comment: 'TROP ' Serial specimen #1, #2 or #3: 1 Performed By: #### L 100.0100, L500.2500, L501.4020, L503.6620 #### [facility] [address] [place], [address] CO2 [Moles/Vol] 24.0 mmol/L Normal 21.0-32.0 [facility] Comment on above: Order Comment: 'TROP ' Serial specimen #1, #2 or #3: 1 Performed By: #### L 100.0100, L500.2500, L501.4020, L503.6620 #### [facility] [address] [place], [address] Creatinine [Mass/Vol] 1.31 mg/dL High 0.55-1.02 [facility] Comment on above: Order Comment: 'TROP ' Serial specimen #1, #2 or #3: 1 Result Comment: The validity of the calculated GFR GFRAA in patients over 70 years has not been determined. Clinical correlation is essential. Performed By: #### L 100.0100, L500.2500, L501.4020, L503.6620 #### [facility] [address] [place], [address] ECRCL 28.45 ml/min Normal [facility] Comment on above: Order Comment: 'TROP ' Serial specimen #1, #2 or #3: 1 Performed By: #### L 100.0100, L500.2500, L501.4020, L503.6620 #### [facility] [address] [place], [address] EST GFR - AA 50 mL/min Low >60 [facility] Comment on above: Order Comment: 'TROP ' Serial specimen #1, #2 or #3: 1 Result Comment: Afri can [place] GFR Calc Performed By: #### L 100.0100, L500.2500, L501.4020, L503.6620 #### [facility] [address] [place], [address] GAP 5 Normal 5-15 [facility] Comment on above: Order Comment: 'TROP ' Serial specimen #1, #2 or #3: 1 Performed By: #### L 100.0100, L500.2500, L501.4020, L503.6620 #### [facility] [address] [place], [address] GFR/1.73 sq M.predicted among non-blacks MDRD (S/P/Bld) [Vol rate/Area] 41 mL/min/{1.73_m2} Low >60 [facility] Comment on above: Order Comment: 'TROP ' Serial specimen #1, #2 or #3: 1 Result Comment: Non- GFR Calc Performed By: #### L 100.0100, L500.2500, L501.4020, L503.6620 #### [facility] [address] [place], [address] Glucose [Mass/Vol] 92 mg/dL Normal 74-106 [facility] Comment on above: Order Comment: 'TROP ' Serial specimen #1, #2 or #3: 1 Performed By: #### L 100.0100, L500.2500, L501.4020, L503.6620 #### [facility] [address] [place], [address] Potassium [Moles/Vol] 4.5 mmol/L Normal 3.5-5.1 [facility] Comment on above: Order Comment: 'TROP ' Serial specimen #1, #2 or #3: 1 Result Comment: Mode rate Hemolysis, Result may be falsely increased. Performed By: #### L 100.0100, L500.2500, L501.4020, L503.6620 #### [facility] [address] [place], [address] Sodium [Moles/Vol] 136 mmol/L Normal 136-145 [facility] Comment on above: Order Comment: 'TROP ' Serial specimen #1, #2 or #3: 1 Performed By: #### L 100.0100, L500.2500, L501.4020, L503.6620 #### [facility] [address] [place], [address] Urea nitrogen [Mass/Vol] 23 mg/dL High 7-18 [facility] Comment on above: Order Comment: 'TROP ' Serial specimen #1, #2 or #3: 1 Performed By: #### L 100.0100, L500.2500, L501.4020, L503.6620 #### [facility] [address] [place], [address] Brain/Head without Contrasto n 01-17-2024 Brain/Head without Contrast [facility] Imaging Services [address] [place] [address] Brain/Head without Contrast MR#: [id number] Acct: [id number] Name: KALINA RUDD Rep #: [id number] : 1940 F 83 From: Tien Burger DO PCP: Dr. Karen Resendiz MD Status: REG ER Study: Brain/Head without Contrast Date of Exam: 09/02 Exam# [id number] Ordering Dr: Elmer Lujan DO [id number] STUDY: CT BRAIN WITHOUT CONTRAST REASON FOR [...] 22:00 EST Reading Location ID and State: [address] [place] [address] Tel [phone], Service support , CC: Dr. Elmer Lujan DO; Dr. Karen Resendiz MD Cigarette Paper Tester: Signed Normal [facility] CBC W/Diff, Automatedon Absolute Lymph 1.69 X10 3/uL Normal 0.83-4.51 [facility] Comment on above: Performed By: #### L 100.0100, L500.2500, L501.4020, L503.6620 #### [facility] [address] [place], [address] Absolute Neut 5.9 X10 3/uL Normal 2.0-7.7 [facility] Comment on above: Performed By: #### L 100.0100, L500.2500, L501.4020, L503.6620 #### [facility] [address] [place], [address] Basophils/100 WBC (Bld) 0.6 % Normal 0-1 [facility] Comment on above: Performed By: #### L 100.0100, L500.2500, L501.4020, L503.6620 #### [facility] [address] [place], [address] Eosinophils/100 WBC (Bld) 1.1 % Normal 0-5 [facility] Comment on above: Performed By: #### L 100.0100, L500.2500, L501.4020, L503.6620 #### [facility] [address] [place], [address] Erythrocyte distribution width (RBC) [Ratio] 12.8 % Normal 11.6-14.6 [facility] Comment on above: Performed By: #### L 100.0100, L500.2500, L501.4020, L503.6620 #### [facility] [address] [place], [address] Hematocrit (Bld) [Volume fraction] 43.3 % Normal 37-47 [facility] Comment on above: Performed By: #### L 100.0100, L500.2500, L501.4020, L503.6620 #### [facility] [address] [place], [address] Hemoglobin (Bld) [Mass/Vol] 14.3 g/dL Normal 12.0-15.0 [facility] Comment on above: Performed By: #### L 100.0100, L500.2500, L501.4020, L503.6620 #### [facility] [address] [place], [address] IG% 0.400 Normal 0.0-0.9 [facility] Comment on above: Result Comment: IG% - Immature Granulocytes (promyelocytes, myelocytes and metamyelocytes) > 1% indicates that a LEFT SHIFT is Present. Performed By: #### L 100.0100, L500.2500, L501.4020, L503.6620 #### [facility] [address] [place], [address] Lymphocytes/100 WBC (Bld) 20.2 % Normal 19-41 [facility] Comment on above: Performed By: #### L 100.0100, L500.2500, L501.4020, L503.6620 #### [facility] [address] [place], [address] MCH (RBC) [Entitic mass] 30.6 pg Normal 27.0-32.0 [facility] Comment on above: Performed By: #### L 100.0100, L500.2500, L501.4020, L503.6620 #### [facility] [address] [place], [address] MCHC (RBC) [Mass/Vol] 33.0 g/dL Normal 32-36 [facility] Comment on above: Performed By: #### L 100.0100, L500.2500, L501.4020, L503.6620 #### [facility] [address] [place], [address] MCV (RBC) [Entitic vol] 92.7 fL Normal 81-99 [facility] Comment on above: Performed By: #### L 100.0100, L500.2500, L501.4020, L503.6620 #### [facility] [address] [place], [address] Monocytes/100 WBC (Bld) 6.9 % Normal 0-10 [facility] Comment on above: Performed By: #### L 100.0100, L500.2500, L501.4020, L503.6620 #### [facility] [address] [place], [address] Neutrophils/100 WBC (Bld) 70.8 % High 47-70 [facility] Comment on above: Performed By: #### L 100.0100, L500.2500, L501.4020, L503.6620 #### [facility] [address] [place], [address] Nucleated RBC (Bld) [#/Vol] 0 10*3/uL Normal 0-5 [facility] Comment on above: Performed By: #### L 100.0100, L500.2500, L501.4020, L503.6620 #### [facility] [address] [place], [address] Platelet mean volume (Bld) [Entitic vol] 12.1 fL High 6.2-12.0 [facility] Comment on above: Performed By: #### L 100.0100, L500.2500, L501.4020, L503.6620 #### [facility] [address] [place], [address] Platelets (Bld) [#/Vol] 165 10*3/uL Normal 150-450 [facility] Comment on above: Performed By: #### L 100.0100, L500.2500, L501.4020, L503.6620 #### [facility] [address] [place], [address] RBC (Bld) [#/Vol] 4.67 10*6/uL Normal 4.2-5.4 [facility] Comment on above: Performed By: #### L 100.0100, L500.2500, L501.4020, L503.6620 #### [facility] [address] [place], [address] RDW SD 43.8 fl Normal 35.1-43.9 [facility] Comment on above: Performed By: #### L 100.0100, L500.2500, L501.4020, L503.6620 #### [facility] [address] [place], [address] WBC (Bld) [#/Vol] 8.4 10*3/uL Normal 4.4-11.0 [facility] Comment on above: Performed By: #### L 100.0100, L500.2500, L501.4020, L503.6620 #### [facility] [address] [facility] [place], [address] Chest 1 View (Portable)on Chest 1 View (Portable) [facility] Imaging Services [address] [place] [address] Chest 1 View (Portable) MR#: [id number] Acct: [id number] Name: KALINA RUDD Rep #: [id number] : 1940 F 83 From: Tien Burger DO PCP: Dr. Karen Resendiz MD Status: REG ER Study: Chest 1 View (Portable) Date of Exam: 01/17/24 Exam# [id number] Ordering Dr: Elmer Lujan DO [id number] INDICATION: Hypertension EXAMINATION/TECHNIQUE: X-RAY - XR Chest [...] 22:34 EST Reading Location ID and State: [facility] / [place] Tel [phone], Service support , CC: Dr. Elmer Lujan DO; Dr. Karen Resendiz MD Cigarette Paper Tester: Signed Normal [facility] Emergency Department Summary on 01-17-2024 Emergency Department Summary [facility] Medical Records Department [address] [place] [address] Emergency Department Summary 01/17/24 MR#: [id number] Acct: [id number] Name: KALINA RUDD Rep #: [id number] : 1940 83 From: Elmer Lujan DO PCP: Dr. Karen Resendiz MD Status:ADM IN Location: ICU [id number] HPI History of Present Illness Chief Complaint: [...] Cooperative, appropriate mood and affect [facility] Home Medications ???Medication ???Instructions ???Recorded ???Last Taken [...] with nons (more content not included)... Normal [facility] L501.4020on 01-17-2024 TROPONIN-I HS 8 pg/mL Normal 3.0-54.0 [facility] Comment on above: Order Comment: ANDRY Tavarez. PREVIOUS SPECIMEN REJECTED DUE TO HEMOLYSIS. 09/19/24 0513 Alfredo Tenorio. Result Comment: Plea se Note: New Test Units and Gender Specific Reference Ranges. For more information see Policy Stat Procedure [place] High Sensitivity Troponin (TNIH) and attachments. Performed By: #### L 501.5200, L501.9520, L500.2500, L501.4021 #### [facility] [address] [place], [address] TROPONIN-I HS 6 pg/mL Normal 3.0-54.0 [facility] Comment on above: Order Comment: 'TROP ' Serial specimen #1, #2 or #3: 1 Result Comment: Plea se Note: New Test Units and Gender Specific Reference Ranges. For more information see Policy Stat Procedure [place] High Sensitivity Troponin (TNIH) and attachments. Performed By: #### L 100.0100, L500.2500, L501.4020, L503.6620 #### [facility] [address] [place], [place], [address] [facility] 01-02-2024 [facility] Telephone (INTMWS) -- TOBINKALINA Mcgee ([id number]) 1940 F [facility] Date Time Provider Department 01/02/24 KAREN RESENDIZ INTMWS During your visit today, we recorded the following information about you: Jimena Pennington LPN 01/02/2024 8:17 AM Signed Electronic PA completed ands response. Prior authorization approved Payer: [facility] [phone] Note from payer: MARCUS Case: [id number], Status: Approved, Coverage Starts on: 01/01/2024 8:02:06 [...] to its destination. To be filled at: [facility] [place] [address] [phone] [facility] - [phone] Jimena Pennington LPN 01/02/2024 11:42 AM Signed [...] Fully Assessed Reason for Visit: Insurance Authorization [[id number]] Prescriptions as of 01/02/2024 - metoprolol succinate [...] ointment Actually gets compounded RX 0.07% through [facility] from [employer] to use twice weekly - [facility] probiotics--Yeast and Vaginal PH support probiotic. Probiotic [...] Encounter Status:Closed by JIMENA PENNINGTON on 01/02/24 Normal [facility] CNOVon 01-01-2024 CNOV Office Visit (INTMWS ) -- KALINA RUDD ([id number]) 1940 F T Date Time Provider Department 01/01/24 3:00 PM MADDIE SAHU INTMWS During your visit today, we recorded the following information about you: Pulse Respiration Blood pressure Weight 68/minute 16/minute 157/59 62.2 kg Maddie Sahu APRN.FORMSTONE FITTER 01/01/2024 4:01 PM Signed SUBJECTIVE: DTaP,Tdap,Td Vaccine(1 - Tdap) Never done Shingrix Vaccine(1 of 2) Never done RSV Vaccine(1 - 1-dose 75+ series) Never done Influenza Vaccine(1) due on 10/12/2023 Covid-19 Vaccine( season) due on 10/12/2023 HPI Kalina Reedkeira is a 83 year old female. PMH [...] ointment Actually gets compounded RX 0.07% through [facility] from [employer] to use twice weekly [employer] [facility] probiotics--Yeast and Vaginal PH support [...] anxiety di (more content not included)... Normal [facility] CBC panel Auto (Bld)on 11-05 Erythrocyte distribution width (RBC) [Ratio] 13.7 % 11.5 - 15.0 % [facility] Hematocrit (Bld) [Volume fraction] 45.7 % 36.0 - 46.0 % [facility] Hemoglobin (Bld) [Mass/Vol] 14.4 g/dL 11.5 - 15.5 g/dL [facility] MCH (RBC) [Entitic mass] 30.3 pg 26.0 - 34.0 pg [facility] MCHC (RBC) [Mass/Vol] 31.5 g/dL 30.5 - 36.0 g/dL [facility] MCV (RBC) [Entitic vol] 96.2 fL 80.0 - 100.0 fL [facility] Nucleated RBC (Bld) [#/Vol] <0.01 k/uL [facility] Platelet mean volume (Bld) [Entitic vol] 10.7 fL 9.0 - 12.7 fL [facility] Platelets (Bld) [#/Vol] 288 10*3/uL 150 - 400 k/uL [facility] RBC (Bld) [#/Vol] 4.75 10*6/uL 3.90 - 5.2 0 m/uL [facility] WBC (Bld) [#/Vol] 7.58 10*3/uL 3.70 - 11.00 k/uL [facility] Comprehensive metabolic 2000 panelon 11-05-2022 Albumin [Mass/Vol] 4.3 g/dL 3.9 - 4.9 g/dL [facility] ALP [Catalytic activity/Vol] 100 U/L 34 - 123 U/L [facility] ALT [Catalytic activity/Vol] 11 U/L 7 - 38 U/L [facility] Anion gap [Moles/Vol] 10 mmol/L 9 - 18 mmol/L [facility] AST [Catalytic activity/Vol] 18 U/L 13 - 35 U/L [facility] Bilirubin [Mass/Vol] 0.6 mg/dL 0.2 - 1 .3 mg/dL [facility] Calcium [Mass/Vol] 9.9 mg/dL 8.5 - 10. 2 mg/dL [facility] Chloride [Moles/Vol] 105 mmol/L 97 - 10 5 mmol/L [facility] CO2 [Moles/Vol] 27 mmol/L 22 - 30 mmol/L [facility] Creatinine [Mass/Vol] 0.87 mg/dL 0.58 - 0.96 mg/dL [facility] Estimated Glomerular Filtration Rate 67 mL/min/1.73m >=60 mL/min/1.73 m [facility] Glucose [Mass/Vol] 86 mg/dL 74 - 99 mg/dL [facility] Potassium [Moles/Vol] 5.2 mmol/L High 3.7 - 5.1 mmol/L [facility] Protein [Mass/Vol] 7.2 g/dL 6.3 - 8.0 g/dL [facility] Sodium [Moles/Vol] 142 mmol/L 136 - 144 mmol/L [facility] Urea nitrogen [Mass/Vol] 17 mg/dL 7 - 21 mg/dL [facility] Lipid 1996 panelon Cholesterol [Mass/Vol] 240 mg/dL High <200 mg/dL [facility] Cholesterol in HDL [Mass/Vol] 57 mg/dL >39 mg/dL [facility] Cholesterol in LDL [Mass/Vol] 161 mg/dL High <100 mg/dL [facility] Cholesterol in LDL/Cholesterol in HDL [Mass ratio] 2.82 {ratio} High <2.54 [facility] Cholesterol in VLDL [Mass/Vol] 22 mg/dL <30 mg/dL [facility] Cholesterol non HDL [Mass/Vol] 183 mg/dL High <130 mg/dL [facility] Cholesterol.total/Chol esterol in HDL [Mass ratio] 4.21 {ratio} <5.10 [facility] Fasting Time 18 hrs [facility] Triglyceride [Mass/Vol] 111 mg/dL <150 mg/dL [facility] MAGNESIUM [facility] 11-05-2022 Magnesium [Mass/Vol] 2.3 mg/dL 1.7 - 2 .3 mg/dL [facility] T4 FREE/FREE THYROXon 2022 Free T4 [Mass/Vol] 1.1 ng/dL 0.9 - 1.7 ng/dL [facility] TSH [facility] 11-05-2022 TSH Qn 2.230 m[IU]/L 0.270 - 4.200 mIU/L [facility] VITAMIN D 25 HYDROXYon 11-05 25-hydroxyvitamin D3 [Mass/Vol] 48.5 ng/mL 31.0 - 80.0 ng/mL [facility] Vital Signs Date Time Vital Sign Value Performing Clinician Facility 09-19-2024 08:14-0400 Body temperature 97.9 [degF] Dr. Karen Resendiz MD Work Phone: [facility] 09-19-2024 08:14-0400 Diastolic blood pressure 65 mm[Hg] Dr. Karen Resendiz MD Work Phone: [phone])[phone] [place] [address] 09-19-2024 08:14-0400 Heart rate 74 /min Dr. Karen Resendiz MD Work Phone: [phone])680-015303 [place] [address] 09-19-2024 08:14-0400 Respiratory rate 16 /min Dr. Karen Resendiz MD Work Phone: [phone])[phone] [place] [address] 09-19-2024 08:14-0400 SaO2% (BldA) [Mass fraction] 100 % Dr. Karen Resendiz MD Work Phone: [phone] [place] [address] 09-19-2024 08:14-0400 Systolic blood pressure 132 mm[Hg] Dr. Karen Resendiz MD Work Phone: [phone])074-927503 [place] [address] 09-19-2024 03:55-0400 Body height 157.[address] Karen Resendiz MD Work Phone: [phone])794-713503 [place] [address] 09-19-2024 03:55-0400 Body mass index (BMI) [Ratio] 25.4 kg/m2 Dr. Karen Resendiz MD Work Phone: [phone])[phone] [place] [address] 09-19-2024 03:55-0400 Body weight 63.[address] Karen Resendiz MD Work Phone: [phone])[phone] [place] [address] 09-08-2024 14:25-0400 Body mass index (BMI) [Ratio] 25.16 kg/m2 Nelli Haley MAKING MACHINE OPERATOR.ROUNDING MACHINE OPERATOR Work Phone: [phone] [place] [address] 09-08-2024 14:25-0400 Body weight 58.9 kg Nelli Haley MAKING MACHINE OPERATOR.ROUNDING MACHINE OPERATOR Work Phone: [phone] [place] [address] 09-08-2024 14:25-0400 Diastolic blood pressure 72 mm[Hg] Nelli Haley MAKING MACHINE OPERATOR.ROUNDING MACHINE OPERATOR Work Phone: [phone] [place] [address] 09-08-2024 14:25-0400 Heart rate 68 /min Nelli Haley MAKING MACHINE OPERATOR.ROUNDING MACHINE OPERATOR Work Phone: [phone] [place] [address] 09-08-2024 14:25-0400 Respiratory rate 16 /min Nelli Haley MAKING MACHINE OPERATOR.ROUNDING MACHINE OPERATOR Work Phone: [facility] 09-08-2024 14:25-0400 SaO2% (BldA) [Mass fraction] 98 % Nelli Muellerr MAKING MACHINE OPERATOR.ROUNDING MACHINE OPERATOR Work Phone: [facility] 09-08-2024 14:25-0400 Systolic blood pressure 128 mm[Hg] Nelli Muellerr MAKING MACHINE OPERATOR.ROUNDING MACHINE OPERATOR Work Phone: [facility] 09-07-2024 08:12-0400 Body height 157.[address] Karen Resendiz MD Work Phone: [facility] 09-07-2024 08:12-0400 Body mass index (BMI) [Ratio] 23.6 kg/m2 Dr. Karen Resendiz MD Work Phone: [facility] 09-07-2024 08:12-0400 Body weight 58.[address] Karen Resendiz MD Work Phone: [facility] 09-07-2024 08:12-0400 Diastolic blood pressure 55 mm[Hg] Dr. Karen Resendiz MD Work Phone: [facility] 09-07-2024 08:12-0400 Heart rate 73 /min Dr. Karen Resendiz MD Work Phone: [facility] 09-07-2024 08:12-0400 Respiratory rate 18 /min Dr. Karen Resendiz MD Work Phone: [facility] 09-07-2024 08:12-0400 Systolic blood pressure 136 mm[Hg] Dr. Karen Resendiz MD Work Phone: [facility] 06-30-2024 16:47-0400 Body temperature 98.2 [degF] Karen Resendiz MD Work Phone: [facility] 06-30-2024 16:47-0400 Diastolic blood pressure 62 mm[Hg] Karen Resendiz MD Work Phone: [facility] 06-30-2024 16:47-0400 Heart rate 74 /min Karen Resendiz MD Work Phone: [facility] 06-30-2024 16:47-0400 SaO2% (BldA) [Mass fraction] 97 % Karen Resendiz MD Work Phone: [facility] 06-30-2024 16:47-0400 Systolic blood pressure 122 mm[Hg] Karen Resendiz MD Work Phone: [facility] 05-11-2024 13:14-0400 Body height 153 cm Karen Resendiz MD Work Phone: [facility] 05-11-2024 13:14-0400 Body mass index (BMI) [Ratio] 27.13 kg/m2 Karen Resendiz MD Work Phone: [facility] 05-11-2024 13:14-0400 Body weight 63.5 kg Karen Resendiz MD Work Phone: [facility] 05-11-2024 13:14-0400 Diastolic blood pressure 58 mm[Hg] Karen Resendiz MD Work Phone: [facility] 05-11-2024 13:14-0400 Heart rate 80 /min Karen Resendiz MD Work Phone: [facility] 05-11-2024 13:14-0400 Respiratory rate 16 /min Karen Resendiz MD Work Phone: [facility] 05-11-2024 13:14-0400 Systolic blood pressure 122 mm[Hg] Karen Resendiz MD Work Phone: [facility] 03-12-2024 11:41-0500 Body mass index (BMI) [Ratio] 25.94 kg/m2 Alexei Skelton MD Work Phone: [facility] 03-12-2024 11:41-0500 Body temperature 100 [degF] Alexei Skelton MD Work Phone: [facility] 03-12-2024 11:41-0500 Body weight 63.3 kg Alexei Skelton MD Work Phone: [facility] 03-12-2024 11:41-0500 Diastolic blood pressure 60 mm[Hg] Alexei Skelton MD Work Phone: [facility] 03-12-2024 11:41-0500 Heart rate 81 /min Alexei Skelton MD Work Phone: [facility] 03-12-2024 11:41-0500 Respiratory rate 20 /min Alexei Skelton MD Work Phone: [facility] 03-12-2024 11:41-0500 SaO2% (BldA) [Mass fraction] 95 % Alexei Skelton MD Work Phone: [facility] 03-12-2024 11:41-0500 Systolic blood pressure 128 mm[Hg] Alexei Skelton MD Work Phone: [facility] 01-27-2024 12:40-0500 Diastolic blood pressure 60 mm[Hg] Karen Resendiz MD Work Phone: [facility] 01-27-2024 12:40-0500 Systolic blood pressure 122 mm[Hg] Karen Resendiz MD Work Phone: [facility] 01-27-2024 11:56-0500 Body mass index (BMI) [Ratio] 24.88 kg/m2 Karen Resendiz MD Work Phone: [facility] 01-27-2024 11:56-0500 Body temperature 97.5 [degF] Karen Resendiz MD Work Phone: [facility] 01-27-2024 11:56-0500 Body weight 60.7 kg Karen Resendiz MD Work Phone: [facility] 01-27-2024 11:56-0500 Heart rate 82 /min Karen Resendiz MD Work Phone: [facility] 01-27-2024 11:56-0500 Respiratory rate 21 /min Karen Resendiz MD Work Phone: [facility] 01-27-2024 11:56-0500 SaO2% (BldA) [Mass fraction] 97 % Karen Resendiz MD Work Phone: [facility] 01-26-2024 12:00-0500 Body temperature 98.78 [degF] DR GERSON LY MD [facility] 01-26-2024 12:00-0500 Diastolic Blood Pressure Non-Invasive 61 mm[Hg] DR GERSON LY MD [address] 01-26-2024 12:00-0500 Mean blood pressure 78 mm[Hg] DR GERSON LY MD [address] [place] [address] 01-26-2024 12:00-0500 Respiratory rate 18 /min DR GERSON LY MD [address] [place] [address] 01-26-2024 12:00-0500 Systolic Blood Pressure Non-Invasive 139 mm[Hg] DR GERSON LY MD [address] [place] [address] 01-26-2024 09:18-0500 Heart rate 68 /min DR GERSON LY MD [address] [place] [address] 01-26-2024 09:18-0500 Reason For Taking VItal Signs DR GERSON LY MD [address] 01-26-2024 06:57-0500 Heart rate 73 /min DR GERSON LY MD [address] [place] [address] 01-26-2024 06:54-0500 Body temperature 96.8 [degF] DR GERSON LY MD [address] [place] [address] 01-26-2024 06:54-0500 Diastolic Blood Pressure Non-Invasive 55 mm[Hg] DR GERSON LY MD [address] [place] [address] 01-26-2024 06:54-0500 Heart rate 76 /min DR GERSON LY MD [address] [place] [address] 01-26-2024 06:54-0500 Mean blood pressure 91 mm[Hg] DR GERSON LY MD [address] [place] [address] 01-26-2024 06:54-0500 Reason For Taking VItal Signs DR GERSON LY MD [address] [place] [address] 01-26-2024 06:54-0500 Respiratory rate 16 /min DR GERSON LY MD [address] [place] [address] 01-26-2024 06:54-0500 Systolic Blood Pressure Non-Invasive 163 mm[Hg] DR GERSON LY MD [address] [place] [address] 01-26-2024 04:17-0500 Diastolic Blood Pressure Non-Invasive 54 mm[Hg] DR GERSON LY MD [address] [place] [address] 01-26-2024 04:17-0500 Reason For Taking VItal Signs DR GERSON LY MD [address] [place] [address] 01-26-2024 04:17-0500 Respiratory rate 16 /min DR GERSON LY MD [address] [place] [address] 01-26-2024 04:17-0500 Systolic Blood Pressure Non-Invasive 138 mm[Hg] DR GERSON LY MD [address] [place] [address] 01-25-2024 22:55-[address] Cuff Size DR GERSON LY MD [address] [place] [address] 01-25-2024 22:55-[address] GERSON LY MD [address] [place] [address] 01-25-2024 22:55-[address] GERSON LY MD [address] [place] [address] 01-25-2024 22:55-0500 Body temperature 98.06 [degF] DR GERSON LY MD [address] [place] [address] 01-25-2024 22:55-0500 Mean blood pressure 89 mm[Hg] DR GERSON LY MD [address] [place] [address] 01-25-2024 19:26-[address] Cuff Size DR GERSON LY MD [address] [place] [address] 01-25-2024 19:26-[address] GERSON LY MD [address] [place] [address] 19:26-[address] GERSON LY MD [address] [place] [address] 19:21-[address] GERSON LY MD [address] [place] [address] 01-25-2024 19:21-[address] GERSON LY MD [address] [place] [address] 01-25-2024 19:21-[address] GERSON LY MD [address] [place] [address] 01-25-2024 05:37-0500 Heart rate 81 /min DR GERSON LY MD [address] [place] [address] 01-25-2024 02:21-0500 Body height 157.[address] GERSON LY MD [address] [place] [address] 01-25-2024 02:21-0500 Body weight 61.[address] GERSON LY MD [address] [place] [address] 01-25-2024 02:21-0500 Body weight 24.64 kg/m2 DR GERSON LY MD [address] [place] [address] 01-25-2024 02:10-0500 Heart rate 82 /min DR GERSON LY MD [address] [place] [address] 01-20-2024 15:54-0500 Reason For Taking VItal Signs RODRIGO HAYES MD [facility] 01-20-2024 14:47-0500 Blood Pressure Cuff Size RODRIGO HAYES MD [facility] 01-20-2024 14:47-0500 Blood Pressure Location RODRIGO HAYES MD [address] [place] [address] 01-20-2024 14:47-0500 Blood Pressure Method RODRIGO HAYES MD [address] [place] [address] 01-20-2024 14:47-0500 Body temperature 97.52 [degF] RODRIGO HAYES MD [address] [place] [address] 01-20-2024 14:47-0500 Diastolic Blood Pressure Non-Invasive 52 mm[Hg] RODRIGO HAYES MD [address] [place] [address] 01-20-2024 14:47-0500 Heart rate 77 /min RODRIGO HAYES MD [address] [place] [address] 01-20-2024 14:47-0500 Reason For Taking VItal Signs RODRIGO HAYES MD [address] [place] [address] 01-20-2024 14:47-0500 Respiratory rate 20 /min RODRIGO HAYES MD [address] [place] [address] 01-20-2024 14:47-0500 Systolic Blood Pressure Non-Invasive 118 mm[Hg] RODRIGO HAYES MD [address] [place] [address] 01-20-2024 11:04-0500 Body temperature 98.06 [degF] RODRIGO HAYES MD [address] [place] [address] 01-20-2024 11:04-0500 Diastolic Blood Pressure Non-Invasive 42 mm[Hg] RODRIGO HAYES MD [address] [place] [address] 01-20-2024 11:04-0500 Heart rate 72 /min RODRIGO HAYES MD [address] [place] [address] 01-20-2024 11:04-0500 Mean blood pressure 71 mm[Hg] RODRIGO HAYES MD [address] [place] [address] 01-20-2024 11:04-0500 Reason For Taking VItal Signs RODRIGO HAYES MD [address] [place] [address] 01-20-2024 11:04-0500 Respiratory rate 26 /min RODRIGO HAYES MD [address] [place] [address] 01-20-2024 11:04-0500 Systolic Blood Pressure Non-Invasive 127 mm[Hg] RODRIGO HAYES MD [address] [place] [address] 01-20-2024 08:52-0500 Heart rate 88 /min RODRIGO HAYES MD [address] [place] [address] 01-20-2024 08:48-0500 Blood Pressure Cuff Size RODRIGO HAYES MD [address] [place] [address] 01-20-2024 08:48-0500 Blood Pressure Location RODRIGO HAYES MD [address] [place] [address] 01-20-2024 08:48-0500 Blood Pressure Method RODRIGO HAYES MD [address] [place] [address] 01-20-2024 08:48-0500 Body temperature 97.52 [degF] RODRIGO HAYES MD [address] [place] [address] 01-20-2024 08:48-0500 Diastolic Blood Pressure Non-Invasive 57 mm[Hg] RODRIGO HAYES MD [address] [place] [address] 01-20-2024 08:48-0500 Heart rate 91 /min RODRIGO HAYES MD [address] [place] [address] 01-20-2024 08:48-0500 Mean blood pressure 72 mm[Hg] RODRIGO HAYES MD [address] [place] [address] 01-20-2024 08:48-0500 Respiratory rate 26 /min RODRIGO HAYES MD [address] [place] [address] 01-20-2024 08:48-0500 Systolic Blood Pressure Non-Invasive 117 mm[Hg] RODRIGO HAYES MD [address] [place] [address] 01-20-2024 04:45-0500 Blood Pressure Cuff Size RODRIGO HAYES MD [address] [place] [address] 01-20-2024 04:45-0500 Blood Pressure Location RODRIGO HAYES MD [address] [place] [address] 01-20-2024 04:45-0500 Blood Pressure Method RODRIGO HAYES MD [address] [place] [address] 01-19-2024 21:30-0500 Mean blood pressure 68 mm[Hg] RODRIGO HAYES MD [address] [place] [address] 01-19-2024 19:11-0500 Heart rate 80 /min RODRIGO HAYES MD [address] [place] [address] 01-19-2024 10:19-0500 Heart rate 135 /min RODRIGO HAYES MD [address] [place] [address] 01-18-2024 23:08-0500 Heart rate 104 /min RODRIGO HAYES MD [address] [place] [address] 01-18-2024 19:00-0500 Heart rate 118 /min RODRIGO HAYES MD [address] [place] [address] 01-18-2024 04:51-0500 Body height 157.5 cm RODRIGO HAYES MD [address] [place] [address] 01-18-2024 04:51-0500 Body weight 66 kg RODRIGO HAYES MD [address] [place] [address] 01-18-2024 04:51-0500 Body weight 26.61 kg/m2 RODRIGO HAYES MD [address] [place] [address] 01-01-2024 15:26-0500 Diastolic blood pressure 59 mm[Hg] Maddie Sahu MAKING MACHINE OPERATOR.FORMSTONE FITTER Work Phone: [facility] Comment on above: bp average 01-01-2024 15:26-0500 Heart rate 68 /min Maddie Sahu MAKING MACHINE OPERATOR.FORMSTONE FITTER Work Phone: [facility] 01-01-2024 15:26-0500 Systolic blood pressure 157 mm[Hg] Maddie Sahu MAKING MACHINE OPERATOR.FORMSTONE FITTER Work Phone: [facility] Comment on above: bp average 01-01-2024 15:18-0500 Body mass index (BMI) [Ratio] 25.49 kg/m2 Maddie Sahu MAKING MACHINE OPERATOR.FORMSTONE FITTER Work Phone: [facility] 01-01-2024 15:18-0500 Body weight 62.2 kg Maddie Sahu MAKING MACHINE OPERATOR.FORMSTONE FITTER Work Phone: [facility] 01-01-2024 15:18-0500 Respiratory rate 16 /min Maddie Sahu MAKING MACHINE OPERATOR.FORMSTONE FITTER Work Phone: [facility] 11-07-2023 15:18-0400 Diastolic blood pressure 72 mm[Hg] Nelli Haley MAKING MACHINE OPERATOR.ROUNDING MACHINE OPERATOR Work Phone: [facility] 11-07-2023 15:18-0400 Systolic blood pressure 136 mm[Hg] Nelli Haley MAKING MACHINE OPERATOR.ROUNDING MACHINE OPERATOR Work Phone: [facility] 11-07-2023 14:57-0400 Body mass index (BMI) [Ratio] 25.86 kg/m2 Nelli Haley MAKING MACHINE OPERATOR.ROUNDING MACHINE OPERATOR Work Phone: [facility] 11-07-2023 14:57-0400 Body weight 63.1 kg Nelli Haley MAKING MACHINE OPERATOR.ROUNDING MACHINE OPERATOR Work Phone: [facility] 11-07-2023 14:57-0400 Heart rate 60 /min Nelli Haley MAKING MACHINE OPERATOR.ROUNDING MACHINE OPERATOR Work Phone: [facility] 11-07-2023 14:57-0400 SaO2% (BldA) [Mass fraction] 99 % Nelli Haley MAKING MACHINE OPERATOR.ROUNDING MACHINE OPERATOR Work Phone: [facility] 05-07-2023 11:27-0400 Diastolic blood pressure 58 mm[Hg] Karen Resendiz MD Work Phone: [facility] 05-07-2023 11:27-0400 Systolic blood pressure 138 mm[Hg] Karen Resendiz MD Work Phone: [facility] 11-02-2022 11:46-0400 Diastolic blood pressure 60 mm[Hg] Karen Resendiz MD Work Phone: [facility] 11-02-2022 11:46-0400 Systolic blood pressure 148 mm[Hg] Karen Resendiz MD Work Phone: [facility] 11-02-2022 10:46-0400 Body height 156.2 cm Karen Resendiz MD Work Phone: [facility] 11-02-2022 10:46-0400 Body temperature 98.01 [degF] Karen Resendiz MD Work Phone: [facility] 11-02-2022 10:46-0400 Body weight 62.6 kg Karen Resendiz MD Work Phone: [facility] 11-02-2022 10:46-0400 Heart rate 63 /min Karen Resendiz MD Work Phone: [facility] 11-02-2022 10:46-0400 Respiratory rate 12 /min Karen Resendiz MD Work Phone: [facility] 11-02-2022 10:46-0400 SaO2% (BldA) [Mass fraction] 98 % Karen Resendiz MD Work Phone: [facility] 01-15-2022 15:26-0500 Body weight 59.42 kg Karen Resendiz MD Work Phone: [facility] 01-15-2022 15:26-0500 Diastolic blood pressure 80 mm[Hg] Karen Resendiz MD Work Phone: [facility] 01-15-2022 15:26-0500 Heart rate 61 /min Karen Resendiz MD Work Phone: [facility] 01-15-2022 15:26-0500 SaO2% (BldA) [Mass fraction] 98 % Karen Resendiz MD Work Phone: [facility] 01-15-2022 15:26-0500 Systolic blood pressure 142 mm[Hg] Karen Resendiz MD Work Phone: [facility] Encounters Encounter Date Encounter Type Care Provider Facility Start: 12-21-2024 End[facility] Start: 11-18-2024 End: 11-18-2024 ambulatory KAREN D TALAMPAS Facility:[facility] Start: 11-11-2024 End: 11-11-2024 ambulatory KAREN D TALAMPAS Facility:[facility] Start: 11-04-2024 End: 11-04-2024 ambulatory KAREN D TALAMPAS Facility:[facility] Start: 10-28-2024 Non-patient / Non-visit Joanne roldan NP-Dign[facility] -[facility] Work Phone: Start: 10-28-2024 ambulatory Karen D Talampas Facilit y:[facility] Start: 10-27-2024 ambulatory Karen D Talampas Facilit y:[facility] Start: 10-27-2024 Non-patient / Non-visit Dr. Darell TERRAZAS -[facility] Start: 10-27-2024 End: 10-27-[address] Karen Resendiz MD Work Phone: -Cardiovascular Services Start: 10-27-2024 End: 10-27-2024 Patient encounter procedure Joanne NUNEZC -Cardiovascular Services Work Phone: Start: 10-27-2024 End: 10-27-2024 ambulatory Karen D Talampas Facility:[facility] Start: 09-30-2024 Non-patient / Non-visit Joanne WEAVER -[facility] Work Phone: Start: 09-30-2024 ambulatory Karen D Talampas Facilit y:[facility] Start: 09-28-2024 Non-patient / Non-visit Dr. Darell TERRAZAS [facility] Start: 09-28-2024 End: 09-28-[address] Karen Resendiz MD Work Phone: -Cardiovascular Services Start: 09-28-2024 End: 09-28-2024 Patient encounter procedure Joanne WEAVER -Cardiovascular Services Work Phone: Start: 09-28-2024 End: 09-28-2024 ambulatory Karen D Talampas Facility:[facility] Start: 09-24-2024 End: 09-24-2024 ambulatory KAREN RESENDIZ Facility:[facility] Start: 09-20-2024 End: 09-20-2024 ambulatory Pat Noble RN Molecular Technologist Management Comment on above: FADI SMALL RN ( Chart review per payor request) Start: 09-19-2024 End: 09-19-2024 Emergency department patient visit Dr. Karen Resendiz MD Work Phone: -Emergency Department Work Phone: Start: 09-08-2024 End: 09-08-2024 ambulatory NELLI REYES Facility:[facility] Start: 09-08-2024 End: 09-08-2024 Patient encounter procedure Nelli Reyes APRN.ROUNDING MACHINE OPERATOR Work Phone: [facility] [place] Comment on above: Grief reaction (Prim lisa Dx); Stage 3b chronic kidney disease (HCC); Unintentional weight loss; IFG (impaired fasting glucose); Recurrent major depressive disorder, in partial remission; Essential hypertension; Adjustment insomnia; Elevated TSH Start: 09-07-2024 End: 09-07-2024 Patient encounter procedure Joanne WEAVER -[facility] Work Phone: Start: 09-07-2024 End: 09-07-[address] Karen Resendiz MD Work Phone: -[facility] Start: 09-07-2024 End: 09-07-2024 ambulatory Karen Resendiz Facility:[facility] Start: 06-30-2024 End: 06-30-2024 ambulatory KAREN RESENDIZ Facility:[facility] Start: 06-30-2024 End: 06-30-2024 Office outpatient visit 15 minutes Karen Resendiz MD Work Phone: [facility] [place] Comment on above: Acute bronchitis, un specified organism (Primary Dx); Wheezing; Acute cough; Recent bereavement Start: 05-11-2024 End: 05-11-2024 ambulatory KAREN RESENDIZ Facility: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; Fibromyalgia; Encounter for immunization; Encounter for long-term current use of medication; Pain in right hip; longterm (current) use of anticoagulants; Dermatitis, unspecified Start: 04-14-2024 End: 04-14-2024 ambulatory Karen Resendiz Facility:[facility] Start: 03-26-2024 End: 03-26-2024 ambulatory Karen Resendiz Facility:[facility] Start: 03-15-2024 End: 03-16-2024 Refill Karen Resendiz MD Work Phone: [facility] [place] Comment on above: Refill Request Start: 03-12-2024 End: 03-12-2024 Subsequent hospital visit by physician Xr [facility] [place] Work Phone: Radiology Comment on above: Acute cough [R05.1] Start: 03-12-2024 End: 03-12-2024 ambulatory Karen Resendiz MD Work Phone: [facility] [place] Comment on above: Chest Pain Start: 03-12-2024 End: 03-12-2024 Office outpatient visit 25 minutes Alexei Skelton MD Work Phone: [facility] [place] Comment on above: Acute cough (Primary Dx); Acute non-recurrent sinusitis, unspecified location; Essential hypertension; History of ST elevation myocardial infarction (STEMI); 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 (HCC); S/P angioplasty with stent Start: 02-20-2024 End: 02-20-2024 ambulatory Karen Resendiz Facility:[facility] Start: 02-02-2024 End: 02-02-2024 ambulatory Korina Billy RN Work Phone: Molecular Technologist Management Start: 02-02-2024 End: 02-02-2024 Telephone follow-up Korina Billy RN Work Phone: Molecular Technologist Management Comment on above: Transition Of Care ( Follow up day 14) Weekly phone contact (Recurring) for Transitional Care Management Start: 01-27-2024 End: 01-27-2024 Transitional care manage srvc 7 day discharge Karen Resendiz MD Work Phone: [facility] [place] Comment on above: Essential hypertensi on (Primary Dx); 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; S/P angioplasty with stent; HYPERCHOLESTEROLEMIA; Atopic dermatitis, unspecified type; Fibromyalgia; Gastro-esophageal reflux disease without esophagitis Start: 01-27-2024 End: 01-27-2024 ambulatory KAREN RESENDIZ Facility:[facility] Start: 01-26-2024 End: 01-26-2024 ambulatory Hermila Gonsalves RN Molecular Technologist Management Comment on above: ACM LUCIAN RN ( No action needed.) Start: 01-25-2024 End: 01-26-2024 Evaluation and management of inpatient DR GERSON LY MD [facility] Start: 01-24-2024 End: 01-25-2024 Emergency department patient visit [facility] Facility:[facility] Start: 01-23-2024 End: 01-23-2024 Telephone encounter Karen Resendiz MD Work Phone: [facility] [place] Comment on above: Patient Question Start: 01-21-2024 End: 01-21-2024 Patient Outreach Korina Billy RN Work Phone: Molecular Technologist Management Comment on above: Transition Of Care ( Hospital discharge [facility] 01/19/2024 - Initial outreach/) Initial phone contact for Transitional Care Management Start: 01-18-2024 End: 01-20-2024 Evaluation and management of inpatient RODRIGO HAYES MD [facility] Start: 01-17-2024 End: 01-18-2024 ambulatory Cristina Tellez RN NURSE LINUX PROGRAMMER Comment on above: Headache; High blood pressure Encounter for medica l assessment (Primary Dx) Start: 01-17-2024 End: 01-17-2024 Patient encounter status Sheila Frank MD Work Phone: [facility] Work Phone: Start: 01-17-2024 End: 01-17-2024 Telemedicine consultation with patient Sheila Frank MD Work Phone: [facility] Start: 01-02-2024 End: 01-02-2024 Telephone encounter Karen Resendiz MD Work Phone: [facility] [place] Comment on above: Insurance Authorizat ion Start: 01-01-2024 End: 01-01-2024 ambulatory MADDIE SAHU Facility:[facility] Start: 01-01-2024 End: 01-01-2024 Office outpatient visit 25 minutes Maddie Sahu MAKING MACHINE OPERATOR.FORMSTONE FITTER Work Phone: [facility] [place] Comment on above: Essential hypertensi on (Primary Dx) Start: 12-31-2023 End: 01-01-2024 ambulatory Karen Resendiz MD Work Phone: [facility] [place] Comment on above: Blood Pressure Refill Request Start: 11-10-2023 End: 11-10-2023 Telephone encounter Nelli Reyes APRN.ROUNDING MACHINE OPERATOR Work Phone: [facility] [place] Comment on above: Results Start: 11-07-2023 End: 11-07-2023 Patient encounter procedure Nelli Reyes APRN.ROUNDING MACHINE OPERATOR Work Phone: [facility] [place] Comment on above: Vitamin D deficiency (Primary Dx); Other insomnia; Eczema, unspecified type; Essential hypertension; Recurrent major depressive disorder, in partial remission (HCC) Start: 08-15-2023 Refill Karen roldan MD Work Phone: [facility] [place] Comment on above: Refill Request Start: 05-07-2023 End: 05-07-2023 Office outpatient visit 25 minutes Karen Resendiz MD Work Phone: [facility] [place] Comment on above: Essential hypertensi on (Primary Dx); Dermatitis; Recurrent major depressive disorder, in partial remission (HCC); Encounter for immunization; Encounter for long-term current use of medication Start: 12-05-2022 Refill Karen roldan MD Work Phone: [address] [place] [address] Comment on above: Refill Request Start: 11-02-2022 End: 11-02-2022 Office outpatient visit 40 minutes Karen Resendiz MD Work Phone: [facility] [place] Comment on above: Pruritic dermatitis (Primary Dx); Essential hypertension; Generalized anxiety disorder; Recurrent major depressive disorder, in partial remission (HCC); Vaginal burning; Vaginal atrophy; Need for influenza vaccination; Vitamin D deficiency Start: 10-22-2022 ambulatory Veronika Siddiqi [place] [facility] Comment on above: Population Health Na vigation Outreach ([employer] Care Gaps ) Start: 08-21-2022 ambulatory Soco Cummings [facility] [place] Comment on above: Population Health Na vigation Outreach ([employer] care gaps) Start: 02-05-2022 Telephone encounter Karen kennedy MD Work Phone: [facility] [place] Comment on above: rash persisting Start: 01-17-2022 Telephone encounter Karen kennedy MD Work Phone: [facility] [place] Comment on above: Medication Problem Start: 01-15-2022 End: 01-15-2022 Office outpatient visit 40 minutes Karen Resendiz MD Work Phone: [facility] [place] Comment on above: Irritable bowel synd raulito with diarrhea (Primary Dx); S/P cholecystectomy; Dermatitis; Chronic vaginitis; Recurrent major depressive disorder, in partial remission (HCC); Essential hypertension; Generalized anxiety disorder Start: 01-04-2022 Refill Kecia TAYLOR RN.ROUNDING MACHINE OPERATOR Work Phone: OB/Gynecology Comment on above: Refill Request Start: 12-20-2021 Refill Kecia TAYLOR RN.ROUNDING MACHINE OPERATOR Work Phone: [facility] Comment on above: Refill Request Start: 12-19-2021 Telephone encounter Kecia yousif APRN.ROUNDING MACHINE OPERATOR Work Phone: [facility] Comment on above: Patient Update Start: 12-13-2021 Telephone encounter Kecia yousif APRN.ROUNDING MACHINE OPERATOR Work Phone: [facility] Comment on above: Patient Update Start: 12-06-2021 Refill Kecia TAYLOR RN.ROUNDING MACHINE OPERATOR Work Phone: [facility]cology Comment on above: Refill Request Start: 11-29-2021 Telephone encounter Kecia yousif APRN.ROUNDING MACHINE OPERATOR Work Phone: OB/Gy[facility]cology Comment on above: Refill [...] Date Procedure Procedure Detail Performing Clinician Start: 10-27-2024 Cardiovascular stres s test using pharmacologic stress agent Dr. Karen Resendiz MD Work Phone: Start: 09-19-[address] Karen [...] History of coronary artery stent placement Joanne WEAVER Plan of Treatment Date Care Activity Detail Author Start: 11-06-2026 Diabetes Screening Diabetes Screening [facility] Start: 11-04-2025 Diabetes Screening Diabetes Screening [facility] Start: 05-20-2025 End: 05-20-2025 Patient encounter procedure 05/20/2025 3:40 PM EDT Office Visit [facility] [place] [address] [place] [address] Karen Resendiz MD [address] [facility] [place] [address] medicare wellness [facility] [place] Comment on above: medicare wellness Start: 05-11-2025 Covid-19 Vaccine () Covid-19 Vaccine () [facility] Comment on above: Postponed from 10/12/2023 (Declined at t his time) Start: 01-14-2025 DIABETES SCREEN DIABETES SCREEN [facility] Start: 01-14-2025 Diabetes Screening Diabetes Screening [facility] Start: 11-19-2024 End: 11-19-2024 Patient encounter procedure 11/19/2024 3:00 PM EDT Office Visit [facility] [place] [address] [place] [address] Karen Resendiz MD [address] [facility] [place] [address] 6 month f/up [facility] [place] Comment on above: 6 month f/up Start: 11-06-2024 Hepatitis B surface antibody level LDL Cholesterol [facility] Start: 11-03-2024 End: 02-02-2025 Hemoglobin A1c in Blood HEMOGLOBIN A1C Lab Routine IFG (impaired fasting glucose) Expected: 11/03/2024, Expires: 02/02/2025 [facility] Comment on above: Expected: 11/03/2024, Expires: Start: 11-03-2024 End: 02-02-2025 Thyrotropin [Units/volume] in Serum or Plasma THYROID STIMULATING HORMONE Lab Routine Elevated TSH Expected: 11/03/2024, Expires: 02/02/2025 [facility] Work Phone: Comment on above: Expected: 11/03/2024, Expires: Start: 11-03-2024 End: 02-02-2025 Thyroxine (T4) free [Mass/volume] in Serum or Plasma T4 FREE/FREE THYROXINE Lab Routine Elevated TSH Expected: 11/03/2024, Expires: 02/02/2025 [facility] Comment on above: Expected: 11/03/2024, Expires: Start: 11-03-2024 End: 02-02-2025 Triiodothyronine (T3) Free [Mass/volume] in Serum or Plasma T3, FREE Lab Routine Elevated TSH Expected: 11/03/2024, Expires: 02/02/2025 [facility] Comment on above: Expected: 11/03/2024, Expires: Start: 10-11-2024 End: 01-10-2025 25-hydroxyvitamin D3 [Mass/volume] in Serum or Plasma VITAMIN D 25 HYDROXY Lab Routine Vitamin D deficiency Expected: 10/11/2024 (Approximate), Expires: 01/10/2025 [facility] Work Phone: Comment on above: Expected: 10/11/2024 (Approximate), Expi res: 01/10/2025 Start: 10-11-2024 End: 01-10-2025 CBC panel - Blood by Automated count COMPLETE BLOOD COUNT Lab Routine Essential hypertension Encounter for long-term current use of medication Expected: 10/11/2024 (Approximate), Expires: 01/10/2025 [facility] Comment on above: Expected: 10/11/2024 (Approximate), Expi res: 01/10/2025 Start: 10-11-2024 End: 01-10-2025 Comprehensive metabolic 2000 panel - Serum or Plasma COMPREHENSIVE METABOLIC PANEL Lab Routine Essential hypertension Encounter for long-term current use of medication Expected: 10/11/2024 (Approximate), Expires: 01/10/2025 [facility] Comment on above: Expected: 10/11/2024 (Approximate), Expi res: 01/10/2025 Start: 10-11-2024 Influenza vaccination Influenza Vaccine (#1) [facility] Start: 10-11-2024 End: 01-10-2025 Lipid 1996 panel - Serum or Plasma LIPID PANEL, FASTING Lab Routine Essential hypertension Encounter for long-term current use of medication Expected: 10/11/2024 (Approximate), Expires: 01/10/2025 [facility] Comment on above: Expected: 10/11/2024 (Approximate), Expi res: 01/10/2025 Start: 10-11-2024 End: 01-10-2025 Magnesium [Mass/volume] in Serum or Plasma MAGNESIUM Lab Routine Encounter for long-term current use of medication Expected: 10/11/2024 (Approximate), Expires: 01/10/2025 [facility] Comment on above: Expected: 10/11/2024 (Approximate), Expi res: 01/10/2025 Start: 09-24-2024 End: 09-24-2024 Patient encounter procedure 09/24/2024 2:20 PM EDT Office Visit [facility] [place] [address] [place] [address] Karen Resendiz MD [address] [place] [address] ED Follow up [facility] [place] Comment on above: ED Follow up Start: 09-19-2024 [facility] Start: 09-19-2024 [facility] Start: 05-11-2024 End: 05-11-2024 Patient encounter procedure 05/11/2024 1:20 PM EDT Office Visit [facility] [place] [address] [place] [address] Karen Resendiz MD [address] [place] [address] Yearly [facility] [place] Comment on above: Yearly Start: 02-11-2024 Advance Directive Discussion Advance Directive Discussion [facility] Start: 01-29-2024 End: 01-29-2024 Patient encounter procedure 01/29/2024 3:00 PM EST Office Visit [facility] [place] [address] [place] [address] Maddie Sahu, MAKING MACHINE OPERATOR.FORMSTONE FITTER [address] [place] [address] blood pressure [facility] [place] Comment on above: blood pressure Start: 01-27-2024 End: 01-27-2024 Patient encounter procedure 01/27/2024 11:00 AM EST Office Visit [facility] [place] [address] [facility] [place] [address] Karen Resendiz MD [address] [facility] [place] [address] hospital f/u [facility] [place] Comment on above: hospital f/u Start: 01-01-2024 End: 01-01-2024 Patient encounter procedure 01/01/2024 3:00 PM EST Office Visit [facility] [place] [address] [facility] [place] [address] Maddie Sahu, MAKING MACHINE OPERATOR.FORMSTONE FITTER [address] [place] [address] elevated blood pressure [facility] [place] Comment on above: elevated blood pressure Start: 12-02-2023 DIABETES SCREEN DIABETES SCREEN [facility] Start: 11-07-2023 End: 11-07-2023 Patient encounter procedure 11/07/2023 3:00 PM EDT Office Visit [facility] [place] [address] [facility] [place] [address] Nelli Reyes, MAKING MACHINE OPERATOR.ROUNDING MACHINE OPERATOR [address] [place] [address] 6 month follow up [facility] [place] Comment on above: 6 month follow up Start: 11-07-2023 End: 02-06-2024 25-hydroxyvitamin D3 [Mass/volume] in Serum or Plasma [facility] Work Phone: Comment on above: Expected: 11/07/2023, Expires: Start: 10-12-2023 Covid-19 Vaccine ( season) Covid-19 Vaccine () [facility] Start: 10-12-2023 Influenza vaccination Influenza Vaccine (#1) [facility] Start: 10-07-2023 End: 01-06-2024 CBC panel - Blood by Automated count CBC Lab Routine Essential hypertension Encounter for long-term current use of medication Expected: 10/07/2023 (Approximate), Expires: 01/06/2024 [facility] Comment on above: Expected: 10/07/2023 (Approximate), Expi res: 01/06/2024 Start: 10-07-2023 End: 01-06-2024 Comprehensive metabolic 2000 panel - Serum or Plasma COMP METABOLIC PANEL Lab Routine Essential hypertension Encounter for long-term current use of medication Expected: 10/07/2023 (Approximate), Expires: 01/06/2024 [facility] Work Phone: Comment on above: Expected: 10/07/2023 (Approximate), Expi res: 01/06/2024 Start: 10-07-2023 End: 01-06-2024 Lipid 1996 panel - Serum or Plasma LIPID PANEL BASIC Lab Routine Essential hypertension Encounter for long-term current use of medication Expected: 10/07/2023 (Approximate), Expires: 01/06/2024 [facility] Comment on above: Expected: 10/07/2023 (Approximate), Expi res: 01/06/2024 Start: 10-07-2023 End: 01-06-2024 Magnesium [Mass/volume] in Serum or Plasma MAGNESIUM BLD Lab Routine Encounter for long-term current use of medication Expected: 10/07/2023 (Approximate), Expires: 01/06/2024 [facility] Comment on above: Expected: 10/07/2023 (Approximate), Expi res: 01/06/2024 Start: 02-10-2023 Advance Directive Discussion Advance Directive Discussion [facility] Start: 01-15-2023 SHINGRIX VACCINE (1 of 2) SHINGRIX VACCINE (1 of 2) [facility] Comment on above: Postponed from 1990 (Declined at t his time) Start: 01-15-2023 Urine microalbumin profile [facility] Comment on above: Postponed from 06/22/1959 (Declined at t his time) Start: 10-11-2022 Covid-19 Vaccine () Covid-19 Vaccine () [facility] Start: 10-11-2022 Influenza vaccination [facility] Start: 04-13-2022 COVID-19 VACCINE (5 - Moderna series) COVID-19 VACCINE (5 - Moderna series) [facility] Start: 02-10-2022 ADVANCE DIRECTIVE DISCUSSION ADVANCE DIRECTIVE DISCUSSION [facility] Start: 01-17-2022 End: 03-19-2022 25-hydroxyvitamin D3 [Mass/volume] in Serum or Plasma VITAMIN D 25 HYDROXY Lab Routine Vitamin D deficiency Expected: 01/17/2022 (Approximate), Expires: 03/19/2022 [facility] Work Phone: Comment on above: Expected: 01/17/2022 (Approximate), Expi res: 03/19/2022 Start: 01-17-2022 End: 03-19-2022 CBC panel - Blood by Automated count CBC Lab Routine Essential hypertension Expected: 01/17/2022 (Approximate), Expires: 03/19/2022 [facility] Work Phone: Comment on above: Expected: 01/17/2022 (Approximate), Expi res: 03/19/2022 Start: 01-17-2022 End: 03-19-2022 Comprehensive metabolic 2000 panel - Serum or Plasma COMP METABOLIC PANEL Lab Routine Essential hypertension Expected: 01/17/2022 (Approximate), Expires: 03/19/2022 [facility] Work Phone: Comment on above: Expected: 01/17/2022 (Approximate), Expi res: 03/19/2022 Start: 01-17-2022 End: 03-19-2022 Lipid 1996 panel - Serum or Plasma LIPID PANEL BASIC Lab Routine Essential hypertension Mixed hyperlipidemia Expected: 01/17/2022 (Approximate), Expires: 03/19/2022 [facility] Work Phone: Comment on above: Expected: 01/17/2022 (Approximate), Expi res: 03/19/2022 Start: 10-11-2021 Influenza vaccination INFLUENZA (#1) [facility] Start: 10-06-2021 ANNUAL PCP TEAM CHRONIC DISEASE VISIT ANNUAL PCP TEAM CHRONIC DISEASE VISIT [facility] Start: 10-06-2021 SHINGRIX VACCINE (1 of 2) SHINGRIX VACCINE (1 of 2) [facility] Comment on above: Postponed from 1990 (Declined at t his time) Start: 10-06-2021 Urine microalbumin profile DTAP,TDAP,TD (1 - Tdap) [facility] Comment on above: Postponed from 06/22/1959 (Declined at t his time) Start: 07-11-2021 End: 06-11-2022 CBC W Auto Differential panel - Blood CBC + DIFF Lab Routine Generalized anxiety disorder Recurrent major depressive disorder, in partial remission (HCC) Essential hypertension Expected: 07/11/2021 (Approximate), Expires: 06/11/2022 [facility] Work Phone: Comment on above: Expected: 07/11/2021 (Approximate), Expi res: 06/11/2022 Start: 07-11-2021 End: 06-11-2022 Comprehensive metabolic 2000 panel - Serum or Plasma COMP METABOLIC PANEL Lab Routine Generalized anxiety disorder Recurrent major depressive disorder, in partial remission (HCC) Essential hypertension HYPERCHOLESTEROLEMIA Expected: 07/11/2021 (Approximate), Expires: 06/11/2022 [facility] Work Phone: Comment on above: Expected: 07/11/2021 (Approximate), Expi res: 06/11/2022 Start: 07-11-2021 End: 06-11-2022 LIPID PANEL BASIC LIPID PANEL BASIC Lab Routine HYPERCHOLESTEROLEMIA Expected: 07/11/2021 (Approximate), Expires: 06/11/2022 [facility] Work Phone: Comment on above: Expected: 07/11/2021 (Approximate), Expi res: 06/11/2022 Start: 04-18-2021 COVID-19 VACCINE (4 - Booster for Moderna series) COVID-19 VACCINE (4 - Booster for Moderna series) [facility] Start: 02-13-2021 COVID-19 VACCINE (4 - Booster for Moderna series) COVID-19 VACCINE (4 - Booster for Moderna series) [facility] Start: 02-10-2021 ADVANCE DIRECTIVE DISCUSSION ADVANCE DIRECTIVE DISCUSSION [facility] Start: 06-22-2015 RSV Vaccine (1 - 1-dose 75+ series) RSV Vaccine (1 - 1-dose 75+ series) [facility] Start: 2000 RSV Vaccine (1 - 1-dose 60+ series) RSV Vaccine (1 - 1-dose 60+ series) [facility] Start: 1990 SHINGRIX VACCINE (1 of 2) SHINGRIX VACCINE (1 of 2) [facility] Start: [birth year]-1959 Urine microalbumin profile [facility] Start: 1958 BP CONTROLLED (<130/80) BP CONTROLLED (<130/80) [facility] inic Basic metabolic 2008 panel with ionized calcium - Serum or Plasma [facility] CBC W Auto Different ial panel - Blood [facility] Natriuretic peptide. B prohormone N-Terminal [Mass/volume] in Serum or Plasma [facility] Patient Education Depression: Ti ps to Help Yourself ED Chest Pain, Uncertain Cause [facility] Work Phone: Thyroid stimulating hormone measurement [facility] Immunizations Immunization Date Immunization Notes Care Provider [facility] 01-29-2024 Seasonal trivalent influenza vaccine, adjuvanted, preservative free Korina Billy RN Work Phone: [facility] 01-29-2024 influenza virus vacc ine, unspecified formulation Nelli Reyes APRN.ROUNDING MACHINE OPERATOR Work Phone: [facility] 01-20-2023 influenza (aIIV4) vaccine, age 65+ yr, quadrivalent, PF (FLUAD QUAD) Nelli Reyes APRN.ROUNDING MACHINE OPERATOR Work Phone: [facility] 01-20-2023 influenza, injectabl e, quadrivalent, contains preservative Karen Resendiz MD Work Phone: [facility] 01-20-2023 influenza virus vacc ine, unspecified formulation Karen Resendiz MD Work Phone: [facility] 12-14-2021 COVID-19 booster vaccine, age 12+ yr, bivalent (PFIZER-BIONTECH) Kecia Cardenas APRN.ROUNDING MACHINE OPERATOR Work Phone: [facility] Work Phone: 11-21-2021 influenza (aIIV4) vaccine, age 65+ yr, quadrivalent, PF (FLUAD QUAD) Nelli Reyes MAKING MACHINE OPERATOR.ROUNDING MACHINE OPERATOR Work Phone: [facility] 11-21-2021 influenza, injectabl e, quadrivalent, contains preservative Kecia Cardenas MAKING MACHINE OPERATOR.ROUNDING MACHINE OPERATOR Work Phone: [facility] Work Phone: 11-21-2021 influenza virus vacc ine, unspecified formulation Veronika Jluien Siddiqi [facility] 11-30-2020 influenza (aIIV4) vaccine, age 65+ yr, quadrivalent, PF (FLUAD QUAD) Nelli Reyes MAKING MACHINE OPERATOR.ROUNDING MACHINE OPERATOR Work Phone: [facility] 11-30-2020 influenza, high dose seasonal, preservative-free Karen Resendiz MD Work Phone: [facility] Work Phone: 04-07-2020 Covid (Moderna) Dr. Karen kennedy MD Work Phone: [facility] 03-10-2020 Covid (Moderna) Dr. Karen kennedy MD Work Phone: [facility] 10-29-2019 influenza, injectabl e, quadrivalent, preservative free Nelli Reyes MAKING MACHINE OPERATOR.ROUNDING MACHINE OPERATOR Work Phone: [facility] 10-29-2019 influenza, seasonal, injectable Karen Resendiz MD Work Phone: [facility] 10-29-2019 pneumococcal conjuga te vaccine, 13 valent Karen Resendiz MD Work Phone: [facility] 12-02-2018 influenza, high dose seasonal, preservative-free Karen Resendiz MD Work Phone: [facility] 11-26-2017 influenza, high dose seasonal, preservative-free Karen Resendiz MD Work Phone: [facility] 01-15-2017 influenza, seasonal, injectable, preservative free Karen Resendiz MD Work Phone: [facility] 12-14-2015 influenza, high dose seasonal, preservative-free Karen Resendiz MD Work Phone: [facility] 12-13-2014 pneumococcal conjuga te vaccine, 13 valent Karen Resendiz MD Work Phone: [facility] 11-12-2014 influenza, high dose seasonal, preservative-free Karen Resendiz MD Work Phone: [facility] 12-02-2013 influenza, seasonal, injectable Karen Resendiz MD Work Phone: [facility] 11-07-2010 influenza virus vacc ine, unspecified formulation Karen Resendiz MD Work Phone: [facility] 02-08-2009 novel influenza-H1N1 -09, preservative-free, injectable Nelli Haley HODGEROUNDING MACHINE OPERATOR Work Phone: [facility] 11-29-2008 influenza virus vacc angelika, unspecified formulation Karen Resendiz MD Work Phone: [facility] Work Phone: 12-29-2007 influenza virus vacc ine, whole virus Karen Resendiz MD Work Phone: [facility] 12-23-2006 influenza virus vacc ine, unspecified formulation Karen Resendiz MD Work Phone: [facility] Work Phone: 12-17-2005 influenza virus vacc ine, unspecified formulation Karen Resendiz MD Work Phone: [facility] 12-17-2005 pneumococcal polysaccharide vaccine, 23 valent Karen Resendiz MD Work Phone: [facility] 12-11-2004 influenza virus vacc ine, unspecified formulation Karen Resendiz MD Work Phone: [facility] Work Phone: Payers Date Payer Category Payer Medicare [id number] 2024 Self-pay 2020 Medicare HUMANA MEDICARE HUMANA MEDICARE PPO [id number] 2020-Present [phone] [address] [place] [address] PPO [id number] 2020 Medicare HUMANA MEDICARE HUMANA MEDICARE PPO [id number] 2020-Present [phone] [address] [place] [address] PPO [id number] 2020 Medicare (Managed Care) [employer] EDICARE [id number] 2013 Private Health Insurance [id number] 1940 Unknown [id number] 1940 Unknown [id number] .[id number] Unknown [id number] .[id number] Unknown [id number] .[id number] Unknown [id number] .[id number] Unknown [id number] .[id number] Unknown [id number] .2.462 Unknown [id number] .2.462 Unknown [id number] .2.462 Unknown [id number] .2.462 Unknown [id number] .2.462 Unknown [id number] [id number] .2.462 Unknown [id number] .2.462 Unknown [id number] .2.462 Unknown [id number] [id number] .2.462 Unknown [id number] .2.462 Unknown [id number] .2.462 Unknown [id number] .2.462 Social History Date Type Detail Facility Start: 05-31-2011 End: 09-19-2024 Tobacco smoking status WIIS Never smoked tobacco [facility] Start: 04-11-2021 End: 09-08-2024 Alcohol intake Current non-drinker of alcohol (finding) [facility] Start: 1940 Sex Assigned At Not on file [facility] Start: 07-08-2021 End: 07-18-2021 Exposure to SARS-CoV-2 (event) Not sure [facility] Start: 05-31-2011 Tobacco use and exposure Smokeless tobacco non-user [facility] Work Phone: Start: 09-26-2021 End: 07-22-2022 History of Social function [facility] Start: 09-26-2021 End: 07-22-2022 Tobacco use panel [facility] Start: 01-12-2012 Adult Depression Screening Assessment 0 [facility] How often to you hav e a drink containing alcohol? Never [facility] Start: 08-23-2013 Alcohol Alcohol [facility] Start: 08-23-2013 Lives Lives [facility] Start: 08-23-2013 Tobacco Use Tobacco Use [facility] Start: 1940 Sex Assigned At Female [facility] Functional Status Date Assessment Result Facility 05-11-2024 Total score [AUDIT-C] 0 05/12/19 25 1:22 PM EDT Hermila Braxton LPN [facility] 01-26-2024 Functional Status Single level home [facility] 01-26-2024 Functional Status Enjoys reading and word searches (01/26/24) [facility] 01-26-2024 Functional Status [facility] 01-26-2024 Functional Status [facility] 01-26-2024 Functional Status Nurse Olga lunsford q2hrs Performed 3pm-3am [facility] 01-26-2024 Functional Status [facility] 01-25-2024 Functional Status [facility] 01-25-2024 Functional Status [facility] 01-25-2024 Functional Status [facility] 01-25-2024 Functional Status Skin moisturiz er, Shampoo cap, Shampoo/Body wash (no rinse) [facility] 01-25-2024 Functional Status [facility] 01-20-2024 Functional Status Identified as high risk, Non-Slip footwear, Room check performed [facility] 01-20-2024 Functional Status [facility] 01-20-2024 Functional Status [facility] 01-20-2024 Functional Status [facility] 01-19-2024 Functional Status [facility] 01-19-2024 Functional Status Single level [facility] 01-19-2024 Functional Status NPO Status Maintained A [facility] 01-19-2024 Functional Status [facility] 01-19-2024 Functional Status Skin Care Prev entative Intervention(s) padded oxygen tubing [facility] 01-18-2024 Functional Status 100 [facility] 04-28-2018 Are you deaf, or do you have serious difficulty hearing No 04/28/2018 5:06 PM EDT Karen Resendiz MD No [facility] 04-28-2018 Are you blind, or do you have serious difficulty seeing, even when wearing glasses No 04/28/2018 5:06 PM EDT Karen Resendiz MD No [facility] 04-28-2018 Do you have serious difficulty walking or climbing stairs No 04/28/2018 5:06 PM EDT Karen Resendiz MD No [facility] 04-28-2018 Do you have difficul ty dressing or bathing No 04/28/2018 5:06 PM EDT Karen Resendiz MD No [facility] 04-28-2018 Because of a physica l, mental, or emotional condition, do you have difficulty doing errands alone such as visiting a physician's office or shopping No 04/28/2018 5:06 PM EDT Karen Resendiz MD No [facility] Mental Status Date Assessment Result Facility 09-19-2024 Cognitive function Voice/Name [facility] Work Phone: 01-26-2024 Mental Status [facility] 01-25-2024 [facility] 01-25-2024 Mental Status [facility] 01-20-2024 Mental Status Oriented x 4 [facility] 01-20-2024 Mental Status [facility] 01-20-2024 Mental Status [facility] 04-28-2018 Because of a physica l, mental, or emotional condition, do you have serious difficulty concentrating, remembering, or making decisions No 04/28/2018 5:06 PM EDT Karen Resendiz MD No [facility] Clinical Notes 06-19-2021 to 12-21-2024 Sabrina Roman MA - 09/20/2024 1:58 PM Pat Amor RN - 09/20/2024 1:45 PM EDTPatient Nelli Hong APRN.CNP - 09/08/2024 2:25 PM EDT Note Date & Type Note Facility 12-21-2024 Note HNO ID: [id number] Author: DARLING DOMÍNGUEZ MD Service: ? Author Type: Physician Type: Progress Notes Filed: 12/21/2024 15:24 Note Text: . Respiratory Ward Note Patient name: Kalina Rudd PCP: Karen Resendiz MD Referring Physician: same Recording using ambient [employer] software for draft documentation of the visit was discussed with the patient/authorized bilingual sales representative; all questions welcomed and answered. Patient/authorized bilingual sales representative agreed to proceed Consultation requested by Dr. Resendiz for an opinion regarding JAMIL, restriction. My final recommendations will be communicated back to the requesting physician by way of shared Medical record or letter to requesting physician via US mail. CC: shortness of breath HPI: Kalina Rudd 84 year old female never smoker with PMH significant for CAD s/p HI, HTN, anxiety and depression, osteoporosis, being referred for evaluation of shortness of breath and restriction on PFTs. Cardiac evaluation normal. Kalina reports progressive dyspnea on exertion that she first noticed after her in June. She does not recall being this short of breath prior to that time. She experiences shortness of breath with exertion, such as doing too much work, going to more than one store, or walking from a parking lot to an office. The dyspnea improves with rest, and she reports that recovery does not take long. She denies significant cough, chest tightness, or palpitation. She has no prior pulmonary issues, ie, asthma, recurrent bronchitis, pneumonia. No wheezing, mucus production, chest tightness. She has an albuterol inhaler that was prescribed when she had bronchitis, but she is not currently using it. She reports that her niece encouraged her to seek evaluation for her shortness of breath after noticing how out of breath she became walking from a parking lot to an office. She reports weight loss of 30 pounds a couple of years ago, but has since regained weight and is now above her desired weight. She reports poor sleep, typically not falling asleep until around 0400, waking around 0900, and then going back to sleep until around 1400. No snoring. DATA: SERVICE DATE: 11/18/2024 SERVICE TIME: 2:01 PM Oral Exhaled Nitric Oxide measurement: 6.0 (ppb) PFT 11/2024: Moderate restriction with reduction in diffusion that corrects for restriction Labs: No anemia CO2 24 Imaging / Diagnostic Studies: DATE OF EXAM: Mar 12 2024 12:38PM WOX [id number] - XR CHEST 2V FRONTAL/LAT / PROCEDURE REASON: Acute cough CLINICAL HISTORY: Acute cough MQ: [id number] EXAM DATE/TIME: 03/12/2024 12:38 PM COMPARISON: 08/22/2010 RESULT: Lines, tubes, and devices: None. Lungs and pleura: No consolidation. No lung mass. No pleural effusion. No pneumothorax. Minimal stable linear fibrosis on the right Cardiomediastinal silhouette: Normal cardiomediastinal silhouette. Bones and soft tissues: Multilevel degenerative change. CXR notable for mild kyphosis and mild pectus excavatum NM Stress test [facility] 10/2024: Normal Echo: Grade [address] today: PAST MEDICAL HISTORY Diagnosis Date Dysthymic disorder Depression (non-psychotic) Essential hypertension, benign Generalized anxiety disorder Anxiety, Generalized Generalized osteoarthrosis, unspecified site Lichen sclerosus Myalgia and myositis, unspecified OSTEOPOROSIS NOS Osteoporosis, unspecified STEMI (ST elevation myocardial infarction) ([facility]) 01/19/2024 ALLERGIES Allergen Reactions Amitriptyline Other: See Comments Could not urinate Codeine chest pain Sulfa (Sulfonamide * Hives, Swelling, Itching Trazodone vivid dreams omeprazole (PRILOSEC) 40 mg capsule Take 1 capsule by mouth once daily. losartan (COZAAR) 50 mg tablet Take 1 tablet by mouth once daily. mirtazapine (REMERON) 15 mg tablet Take 1.5 tablets by mouth daily at bedtime. metoprolol succinate ER (TOPROL XL) 50 mg 24 hr tablet Take 1 tablet by mouth once daily. amLODIPine (NORVASC) 10 mg tablet Take 1 tablet by mouth once daily. [facility]. rosuvastatin (CRESTOR) 20 mg tablet Take 1 tablet by mouth daily at bedtime. clopidogrel (PLAVIX) 75 mg tablet Take 1 tablet by mouth once daily. isosorbide mononitrate ER (IMDUR) 30 mg 24 hr tablet Take 1 tablet by mouth once daily. Before a meal DULoxetine (CYMBALTA) 60 mg capsule Take 1 capsule by mouth once daily. gabapentin (NEURONTIN) 300 mg capsule Take 1 capsule by mouth three times a day. aspirin, enteric coated (ASPIRIN, ENTERIC COATED) 81 mg EC tablet Take 1 tablet by mouth every afternoon. crisaborole 2 % Apply to affected area two times a day. Apply a thin film to affected area(s) 2 times daily (Patient not taking: Reported on 11/11/2024) estradiol (ESTRACE) 0.01 % (0.1 mg/gram) vaginal cream Apply to urethral opening for atrophic vaginitis. Two to three times a week. (Patient (more content not included)... [facility] 12-21-2024 Note HNO ID: [id number] Author: XOCHITL KOENIG RT(R) Service: ? Author Type: Multiple Pressure Riveter Operator Type: Progress Notes Filed: 12/21/2024 14:18 Note Text: Radiology Service Progress Note PATIENT NAME: Kalina Rudd DATE OF SERVICE: December 21, 2024 TIME: 2:17 PM PATIENT IDENTITY VERIFICATION COMPLETED USING TWO [...] status: NO. PATIENT RELEVANT IMPLANT DATA REVIEWED: Yes PATIENT PRESENTS WITH AN IMPLANTABLE OR ATTACHED LINUX NETWORK ENGINEER: No RADIOLOGY DEPARTMENT: CT; Exam(s) Completed: Chest. Anesthesia: No PERIPHERAL IV DATA: Not applicable SIGNED BY: RT Marie(R) December 21, 2024 2:17 PM [facility] 11-18-2024 Note HNO ID: [id number] Author: MANJINDER KEEN RPFT Service: ? Author Type: Respiratory Therapist Type: Procedures Filed: 11/18/2024 14:01 Note Text: RESPIRATORY THERAPY ORAL EXHALED NITRIC OXIDE SERVICE DATE: 11/18/2024 SERVICE TIME: 2:01 PM Oral Exhaled Nitric Oxide measurement: 6.0 (ppb) Normal: Adult <25 ppb, pediatric (<12 years) <20 ppb High Normal / Increased: Adult 25-50 ppb, pediatric (<12 years) 20-35 ppb Moderately raised exhaled Nitric Oxide may indicate underlying inflammation, but note that: Cold and influenza can raise exhaled Nitric Oxide and some patients have higher baseline exhaled Nitric Oxide levels than others. High: Adult >50 ppb, pediatric (<12 years) >35 ppb Indicative of ongoing eosinophilic inflammation. Symptomatic patient likely to respond to steroids. Possible causes (if already on steroids): Poor compliance, recent allergen exposure, steroid dose inadequate, and steroid resistance. Note that not all patients with high exhaled nitric oxide levels display symptoms. Oral Exhaled Nitric Oxide measurement (Previous Encounters) Test Date Oral Exhaled Nitric Oxide (ppb) 11/18/2024 6.0 NAME: TRAMAINE Marcano PATIENT NAME: Kalina Rudd DATE: November 18, 2024 TIME: 2:01 PM [facility] 11-11-2024 Note HNO ID: [id number] Author: KAREN RESENDIZ MD Service: ? Author Type: Physician Type: Progress Notes Filed: 12/02/2024 22:28 Note Text: Subjective Kalina Rudd is a 84 year old female. HPI SUBJECTIVE: Kalina is a 84-year-old female, with a history of HI, presenting with dyspnea on exertion. Kalina reports dyspnea on exertion, which began after an episode of bronchitis earlier this year. She experiences dyspnea when walking long distances or engaging in physical activities such as working in the garage or shopping. The dyspnea resolves upon sitting and resting. She denies any current cough, wheezing, or chest tightness. She has never smoked, but her was a smoker in the past. She does not recall undergoing any pulmonary function tests. She has a history of HI and has undergone recent cardiac evaluations, including a stress test and echocardiogram, which reportedly showed normal results. She denies any current use of thyroid medications. She is not taking vitamin D supplements and reports a diet low in iron-rich foods. She denies any signs of bleeding, such as melena or hematuria. PAST MEDICAL HISTORY Diagnosis Date Dysthymic disorder Depression (non-psychotic) Essential hypertension, benign Generalized anxiety disorder Anxiety, Generalized Generalized osteoarthrosis, unspecified site Lichen sclerosus Myalgia and myositis, unspecified OSTEOPOROSIS NOS Osteoporosis, unspecified STEMI (ST elevation myocardial infarction) (HCC) 01/19/2024 Current Outpatient Medications Medication Sig metoprolol succinate ER (TOPROL XL) 50 mg 24 hr tablet Take 1 tablet by mouth once daily. amLODIPine (NORVASC) 10 mg tablet Take 1 tablet by mouth once daily. [facility]. rosuvastatin (CRESTOR) 20 mg tablet Take 1 tablet by mouth daily at bedtime. clopidogrel (PLAVIX) 75 mg tablet Take 1 tablet by mouth once daily. isosorbide mononitrate ER (IMDUR) 30 mg 24 hr tablet Take 1 tablet by mouth once daily. Before a meal DULoxetine (CYMBALTA) 60 mg capsule Take 1 capsule by mouth once daily. gabapentin (NEURONTIN) 300 mg capsule Take 1 capsule by mouth three times a day. aspirin, enteric coated (ASPIRIN, ENTERIC COATED) 81 mg EC tablet Take 1 tablet by mouth every afternoon. dorzolamide HCl/PF (DORZOLAMIDE, PF,) 2 % drop Use 1 Drop in eyes three times daily. omeprazole (PRILOSEC) 40 mg capsule Take 1 capsule by mouth once daily. losartan (COZAAR) 50 mg tablet Take 1 tablet by mouth once daily. mirtazapine (REMERON) 15 mg tablet Take 1.5 tablets by mouth daily at bedtime. albuterol HFA (PROVENTIL HFA, VENTOLIN HFA) 90 mcg/actuation inhaler Inhale 2 puffs as instructed every 4 hours as needed for wheezing/shortness of breath. (Patient not taking: Reported on 11/11/2024) crisaborole 2 % Apply to affected area two times a day. Apply a thin film to affected area(s) 2 times daily (Patient not taking: Reported on 11/11/2024) estradiol (ESTRACE) 0.01 % (0.1 mg/gram) vaginal cream Apply to urethral opening for atrophic vaginitis. Two to three times a week. (Patient not taking: Reported on 11/11/2024) Miscellaneous Medical Supply [employer] probiotics--Yeast and Vaginal PH support probiotic. Probiotic blend. Takes 1 by mouth at bedtime glycerin-min oil-polycarbophil (REPLENS) gel Uses Replens cream 3 times weekly (Patient not taking: Reported on 11/11/2024) COMPOUNDED PRESCRIPTION Massage therapy Dx: Fibromyalgia, Arthritis (Patient not taking: Reported on 11/11/2024) No current facility-administered medications for this visit. Review of Systems Objective BP 106/54 Pulse 70 Resp 24 Wt 65.2 kg (143 lb 11.8 oz) SpO2 91% BMI 27.85 kg/m? Physical Exam Constitutional: Appearance: Normal appearance. HENT: Head: Normocephalic. Eyes: Conjunctiva/sclera: Conjunctivae normal. Cardiovascular: Rate and Rhythm: Normal rate and regular rhythm. Heart sounds: Normal heart sounds. Pulmonary: Effort: Pulmonary effort is normal. Breath sounds: Normal breath sounds. Comments: Occasional heard low pitched wheeze Musculoskeletal: Right lower leg: No edema. Left lower leg: No edema. Skin: General: Skin is warm and dry. Neurological: General: No focal deficit present. Mental Status: She is alert and oriented to person, place, and time. Psychiatric: Mood and Affect: Mood normal. Behavior: Behavior normal. Thought Content: Thought content normal. Judgment: Judgment normal. # Essential hypertension (I10) Well controlled to on the low side. Encouraged to stay hydrated. Continue follow up with cardiology. # Renal insufficiency (N28.9) - Recent labs show BUN 27 mg/dL, creatinine 1.11 mg/dL, and eGFR 49 mL/min/1.73m?, consistent with CKD stage 3a; likely exacerbated by dehydration at time of testing. - Encouraged increased fluid intake to 6-8 cups daily, including non-caffeinated beverages and fluids from foods like soup, juice, and milk. - (more content not included)... [facility] 09-24-2024 Note HNO ID: [id number] Author: KAREN RESENDIZ MD Service: ? Author Type: Physician Type: Progress Notes Filed: 11/05/2024 01:27 Note Text: Subjective Kalina Rudd is a 84 year old female. HPI SUBJECTIVE: Kalina Rudd is a 84-year-old female with a history of fibromyalgia, aortic valve insufficiency, and depression, presenting with insomnia, anxiety, and depression. Kalina reports difficulty sleeping at night and has been sleeping during the day, typically from 0500 to 0700 until 1600 to 1630. She has been taking Remeron 15 mg for sleep, prescribed by Nelli, but reports it has not been effective. She inquires about increasing the dosage. She also reports anxiety and depression, stating, I'm depressed, I'm dehydrated, I'm everything. She has not been able to concentrate on reading and has been watching TV at night when she cannot sleep. She expresses a desire to have a more regular sleep schedule, ideally going to bed at 2300 and waking up at 1000. Kalina was seen in the ER on 09/19 for burning discomfort on the left side of her chest, which was attributed to fibromyalgia and depression. She denies nausea, emesis, or dyspnea during that episode. She has an upcoming echocardiogram on Friday to evaluate her aortic valve insufficiency, which was previously described as mild to moderate. She expresses concern about the possibility of needing a valve replacement. She has been taking her medications irregularly due to her sleep schedule. She usually takes her first set of medications at 1600 to 1630, followed by another set 1.5 hours later, and her cholesterol medication around 2330 to 0000. She inquires about adjusting her medication schedule to align with her current sleep pattern. She reports weight gain and has been drinking Boost nutritional drinks, which she believes have contributed to her weight gain. She also reports occasional leg swelling, which she attributes to dietary salt intake. She uses Mayberry's light salt and inquires about its iodine content. She has a history of thyroid dysfunction, with a TSH level of 4.35 on 09/07, and expresses concern about the possibility of needing medication for her thyroid. She also reports a fasting blood glucose level of 120 on 09/07 and expresses concern about the possibility of needing medication for her blood glucose levels. She has been experiencing dyspnea with physical activity and reports feeling out of breath when doing chores. She has been advised to seek counseling but has not done so due to her irregular sleep schedule. She reports a history of anxiety and worry, stating, I've always been anxious. I worry. PAST MEDICAL HISTORY Diagnosis Date Dysthymic disorder Depression (non-psychotic) Essential hypertension, benign Generalized anxiety disorder Anxiety, Generalized Generalized osteoarthrosis, unspecified site Lichen sclerosus Myalgia and myositis, unspecified OSTEOPOROSIS NOS Osteoporosis, unspecified STEMI (ST elevation myocardial infarction) ([facility]) 01/19/2024 Current Outpatient Medications Medication Sig rosuvastatin (CRESTOR) 20 mg tablet Take 1 tablet by mouth daily at bedtime. clopidogrel (PLAVIX) 75 mg tablet Take 1 tablet by mouth once daily. isosorbide mononitrate ER (IMDUR) 30 mg 24 hr tablet Take 1 tablet by mouth once daily. Before a meal DULoxetine (CYMBALTA) 60 mg capsule Take 1 capsule by mouth once daily. gabapentin (NEURONTIN) 300 mg capsule Take 1 [...] vaginitis. Two to three times a week. dorzolamide HCl/PF (DORZOLAMIDE, PF,) 2 % drop Use 1 Drop in eyes three times daily. metoprolol succinate ER (TOPROL XL) 50 mg 24 hr tablet Take 1 tablet by mouth once daily. amLODIPine (NORVASC) 10 mg tablet Take 1 tablet by mouth once daily. [facility]. mirtazapine (REMERON) 15 mg tablet Take 1 tablet by mouth daily at bedtime. albuterol HFA (PROVENTIL HFA, VENTOLIN HFA) 90 mcg/actuation inhaler Inhale 2 puffs as instructed every 4 hours as needed for wheezing/shortness of breath. crisaborole 2 % Apply to affected area two times a day. Apply a thin film to affected area(s) 2 times daily Miscellaneous Medical Supply [facility] probiotics--Yeast and Vaginal PH support probiotic. Probiotic blend. Takes 1 by mouth at bedtime glycerin-min oil-polycarbophil (REPLENS) gel Uses Replens cream 3 times weekly COMPOUNDED PRESCRIPTION Massage therapy Dx: Fibromyalgia, Arthritis No current facility-administered medications for this visit. Review of Systems Objective BP 130/78 Pulse 60 Wt 62.1 kg (136 lb 14.5 (more content not included)... [facility] 09-20-2024 Note HNO ID: [id number] Author: SABRINA ROMAN MA Service: ? Author Type: Cosmetology Instructor Type: Progress Notes Filed: 09/20/2024 14:10 Note Text: POPULATION HEALTH NAVIGATION OUTREACH Action/I Pool Message: Type: ACO We are forwarding this patient to Network Navigation to schedule a sooner PCP follow-up appointment within 7 days of recent 09/19/2024 [place] ER visit. ED Follow up [facility] 09/19/24 Chest Pain HM care gaps: [...] / pended orders: ER Follow-up 09/24/2024 in [facility] with KAREN RESENDIZ - ED Follow up, [facility] 09/19/24, Chest Pain 11/19/2024 in [facility] with KAREN RESENDIZ - 6 month f/up 05/20/2025 in [facility] with KAREN RESENDIZ - medicare wellness Navigation Signature: Sabrina Roman MA September 20, 2024 1:58 PM [facility] 09-20-2024 History of Present illness Narrative POPULATION HEALTH NAVIGATION OUTREACH Action/FYI CM Pool Message: Type: ACO We are forwarding this patient to Network Navigation to schedule a sooner PCP follow-up appointment within 7 days of recent 09/19/2024 [place] ER visit. ED Follow up [facility] 09/19/24 Chest Pain HM care gaps: [...] / pended orders: ER Follow-up 09/24/2024 in [facility] with KAREN RESENDIZ - ED Follow up, [facility] 09/19/24, Chest Pain 11/19/2024 in [facility] with KAREN RESENDIZ - 6 month f/up 05/20/2025 in [facility] with KAREN RESENDIZ - medicare wellness Navigation Signature: Sabrina Roman MA September 20, 2024 1:58 PM Summary: Chart review per payor request [facility] RN Patient identified by name and date of . Reason for review or outreach: Chart Review [facility] Department Utilization REQUESTED ACTION/FYI: Please see ED Utilization summary below A follow-up appointment is noted to be scheduled on 11/19/2024. We are forwarding this patient to Network Navigation to schedule a sooner PCP follow-up appointment within 7 days of recent 09/19/2024 [facility] [place] ER visit. Thank you! ED DIAGNOSES/REASON(S) FOR ED USE: 09/19/2024 [facility] ER visit for chest pain OTHER FINDINGS/SUMMARY: [...] Referrals/Routed: Population Health Navigation: Appointment. Router to [facility] [[id number]] Contact made with patient: No, Chart review only. Signature: Pat Noble RN documented in this encounter [facility] 09-20-2024 Note HNO ID: [id number] Author: PAT NOBLE RN Service: ? Author [...] appointment within 7 days of recent 09/19/2024 [facility] ER visit. Thank you! ED DIAGNOSES/REASON(S) FOR ED USE: 09/19/2024 [facility] ER visit for chest pain OTHER FINDINGS/SUMMARY: [...] Referrals/Routed: Population Health Navigation: Appointment. Router to [facility] [[id number]] Contact made with patient: No, Chart review only. Signature: Pat Noble RN [facility] 09-20-2024 Note Patient Outreach (AM BC) KALINA RUDD ([id number]) 1940 F [facility] Date Time Provider Department 09/20/24 [facility] During your visit today, we recorded the following information about you: Pat Noble RN 09/20/2024 1:47 PM Signed [facility] RN Patient identified by name and date of . Reason for review or outreach: Chart Review [facility] Utilization REQUESTED ACTION/FYI: Please see ED Utilization summary below A follow-up appointment is noted to be scheduled on 11/19/2024. We are forwarding this patient to Network Navigation to schedule a sooner PCP follow-up appointment within 7 days of recent 09/19/2024 [facility] ER visit. Thank you! ED DIAGNOSES/REASON(S) FOR ED USE: 09/19/2024 [facility] ER visit for chest pain OTHER FINDINGS/SUMMARY: [...] for evaluation Patient Attributed To: QAE Payer: Genohaley MONROY Action Taken: Referrals/Routed: Population Health Navigation: Appointment. Router to [facility] [[phone]] Contact made with patient: No, Chart review only. Signature: TOM Alvares Lisa L, MA 09/20/2024 2:10 PM Signed POPULATION HEALTH NAVIGATION OUTREACH Action/FYI CM Pool Message: Type: ACO We are forwarding this patient to Network Navigation to schedule a sooner PCP follow-up appointment within 7 days of recent 09/19/2024 [place] [facility] ER visit. ED Follow up [facility] 09/19/24 Chest Pain HM care gaps: [...] / pended orders: ER Follow-up 09/24/2024 in [facility] with KAREN RESENDIZ - ED Follow up, [facility] 09/19/24, Chest Pain 11/19/2024 in [facility] with KAREN RESENDIZ - 6 month f/up 05/20/2025 in [facility] with KAREN RESENDIZ - medicare wellness [...] Date Reviewed: 09/08/2024 Reviewed by: Nelli Reyes APRN.ROUNDING MACHINE OPERATOR - Fully Assessed Reason for Visit: ACM LUCIAN RN [[id number]] Cmt: Chart review per payor request Prescriptions [...] Apply a t (more content not included)... [facility] 09-19-2024 Discharge summary [facility] 09-19-2024 Radiology Diagnostic study note [facility] Imaging Services [address] [place], [place] [id number] Chest 1 View (Portable) MR#: [id number] Acct: [id number] Name: KALINA RUDD Rep #: [id number] : 1940 F 84 From: Karma Ferrera MD PCP: Dr. Karen Resendiz MD Status: IA E ER Study:Chest 1 View (Portable) Date of Exam: 09/19/24 Exam# [id number] Ordering Dr: Sue Nick DO PROCEDURE: CHEST 1 VIEW (PORTABLE) 09/19/2024 REASON FOR EXAM: CHEST PAIN TECHNIQUE: Frontal view of the chest. COMPARISON: 02/03/2024 FINDINGS: Scoliosis. Upper limits of normal heart size, possible LVH. Status post coronary artery stenting. Elevated right hemidiaphragm. No consolidation, effusion, or pneumothorax. RAD/Chest 1 View (Portable) IMPRESSION: No acute chest findings Reading Location: [facility] CC: Dr. Karen Resendiz MD; Chetan Nick DO ~ Cigarette Paper Tester: Signed [facility] 09-08-2024 Instructions Nelli Reyes APRN.DARREN - 09/08/2024 2:42 PM EDT Start drinking 1 protein shake (Boost) a day. Start trying to drink 4 bottles of water per day. Start taking Remeron (mirtazapine) every day around bedtime. Call [facility] and ask about counseling and their [facility] documented in this encounter [facility] 09-08-2024 Note HNO ID: [id number] Author: NELLI REYES APRN.CNP Service: ? Author Type: Nurse Practitioner Type: Progress Notes Filed: 09/08/2024 15:36 Note Text: SUBJECTIVE Kalina Rudd is a 84 year old female here today for a check up on her medical problems. Chief Complaint Patient presents with: Recheck: Follow up, review labs. depression HPI Kalina Rudd is a 84-year-old female, with a history of HI and recent bereavement, presenting with fatigue, weight [...] her diet. Kalina has a history of HI in January, for which she had three stents placed. She reports not feeling well since the HI and has an upcoming echocardiogram scheduled for [...] a half later. She reports that her masonry installer noted elevated thyroid levels and suggested that treatment might improve her energy levels. She also reports that her masonry installer noted signs of depression, anxiety, and dehydration. Kalina reports a history of anxiety and describes herself as a worrier. She has not sought counseling but mentions that her masonry installer recommended it. She has a son in [place] with whom she had a recent disagreement, leading to feelings of isolation. She has another son and a grandson locally, with whom she maintains regular contact. She expresses feelings of sadness and depression, stating, I'm so depressed, it's awful. Recording using Sonoma software for draft documentation of the visit was discussed with the patient/authorized bilingual sales representative; all questions welcomed and answered. Patient/authorized bilingual sales representative agreed to proceed Her medications were [...] three times a week. Miscellaneous Medical Supply [facility] probiotics--Yeast and Vaginal PH support [...] ACTIVE PROBLEM LIST Coronary Artery Disease Involving [place] Coronary Artery of [place] Heart With Angina Pectoris - 03/12/2024 S/P Angioplasty With Stent - 03/12/[address] Elevation Myocardial Infarction (Stemi) - 03/12/2024 Recurrent Major Depressive Disorder, in Part (more content not included)... [facility] 09-08-2024 History of Present illness Narrative SUBJECTIVE aKlina Rudd is a 84 year old female here today for a check up on her medical problems. Chief Complaint Patient presents with: Recheck: Follow up, review labs. depression HPI Kalina Rudd is a 84-year-old female, with a history of HI and recent bereavement, presenting with fatigue, weight [...] her diet. Kalina has a history of HI in January, for which she had three stents placed. She reports not feeling well since the HI and has an upcoming echocardiogram scheduled for [...] a half later. She reports that her masonry installer noted elevated thyroid levels and suggested that treatment might improve her energy levels. She also reports that her masonry installer noted signs of depression, anxiety, and dehydration. Kalina reports a history of anxiety and describes herself as a worrier. She has not sought counseling but mentions that her masonry installer recommended it. She has a son in [place] with whom she had a recent disagreement, leading to feelings of isolation. She has another son and a grandson locally, with whom she maintains regular contact. She expresses feelings of sadness and depression, stating, I'm so depressed, it's awful. Recording using Sonoma software for draft documentation of the visit was discussed with the patient/authorized bilingual sales representative; all questions welcomed and answered. Patient/authorized bilingual sales representative agreed to proceed Her medications were [...] vaginitis. Two to three times a week. [employer] [facility] probiotics--Yeast and Vaginal PH support [...] ACTIVE PROBLEM LIST Coronary Artery Disease Involving [place] Coronary Artery of [place] Heart With Angina Pectoris - 03/12/2024 S/P [...] - Provided information for grief counseling through [facility] in [facility]. - Follow-up scheduled for November 19 [...] Nelli Reyes APRN-DARREN documented in this encounter [facility] 09-07-2024 Evaluation note Diagnosis Onset Date Resolution Aortic regurgitation acute September 07, 2024 8:06am JAMIL (dyspnea on exertion) acute September 07, 2024 8:06am Fatigue acute September 07 8:06am History of coronary artery stent placement acute August 8:06am HTN (hypertension) chronic August 112024 8:06am [facility] Work Phone: [phone] Instructions* Patient Instructions* Karen Resendiz MD - [...] not relieve your cough, you may use amld-fuh-ywrehas options such as Robitussin, Mucinex, quercetin (HBP), or Delsym. - Only fill and start doxycycline 100 mg twice daily for 10 days if your cough and wheezing do not improve with the inhaler and cough treatments. - Continue routine follow-up with your masonry installer in October as planned. - Contact the office if your symptoms worsen or if you have any questions. [facility] NoteHNO ID: [id number] Author: KAREN RESENDIZ MD Service: ? Author Type: Physician Type: Progress Notes Filed: 07/19/2024 01:01 Note Text: This note was created using SpectraLinearriter. Subjective Kalina Rudd is a 84 year [...] is currently under the care of a masonry installer and reports stable cardiac status, with her [...] Osteoporosis, unspecified STEMI (ST elevation myocardial infarction) ([facility]) 01/19/2024 Current Outpatient Medications Medication Sig albuterol [...] vaginitis. Two to three times a week. [employer] [facility] probiotics--Yeast and Vaginal PH support [...] to administer 1 puff, (more content not included)...[facility]05-21-[facility] History of Present illness Narrative* Karen Resendiz MD - 06/30/2024 5:33 PM EDT This note was created using Gildter. Subjective Kalina Rudd is a 84 year [...] is currently under the care of a masonry installer and reports stable cardiac status, with her [...] Osteoporosis, unspecified STEMI (ST elevation myocardial infarction) ([facility]) 01/19/2024 Current Outpatient Medications Medication Sig albuterol [...] three times a week. Miscellaneous Medical Supply [facility] probiotics--Yeast and Vaginal PH support [...] Tessalon Perles for cough management. - Discussed mqsz-ubj-aczteqp options such as Robitussin, quercetin, HBP, Mucinex, [...] as needed. Karen Resendiz MD Recording using Sonoma software for draft documentation of the visit was discussed with the patient/authorized bilingual sales representative; all questions welcomed and answered. Patient/authorized bilingual sales representative agreed to proceed [facility]25 NoteHNO ID: [id number] Author: KAREN RESENDIZ MD Service: ? Author Type: Physician Type: Progress Notes Filed: 05/11/2024 14:34 Note Text: This note was created using [email or web address]. Subjective Kalina Rudd is a 83 year [...] content normal. Judgment: Judgment normal. [facility] History of Present illness Narrative* Karen Resendiz MD - 05/11/2024 2:19 PM EDT This note was created using wise.io. Subjective Kalina Rudd is a 83 year [...] in the medical record. Outside specialists seen: [facility] Medical/Family history review Reviewed and [...] The patient consented to the use of Sonoma software for draft documentation of the visit consistent with [facility] s Notice of Privacy Practices. Kalina is a 83-year-old female with a history of HI, HTN, and eczema, presenting for a Medicare Annual Wellness Visit. Kalina reports right hip pain that occurs when standing up and walking, but is alleviated by straightening the leg before walking. The pain is located in the anterior groin and buttocks. 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 She finds [...] amlodipine and has not yet contacted her masonry installer about reducing the dose. She also reports [...] has not seen her dentist since her HI, but plans to schedule an appointment. She [...] fitted stockings. - Advised patient to contact masonry installer to discuss reducing amlodipine dosage from 10 [...] stent (Z95.820) # 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 (I25.10) - No recent chest pain reported. - Continue current medications including clopidogrel, isosorbide, and metoprolol. - Refills for clopidogrel and isosorbide sent to [facility]. # Fibromyalgia (M79.7) - Managed with gabapentin; dosage adjusted to 300 mg TID. - Monitor for effectiveness in pain management. # Encounter for immunization (Z23) - Reviewed immunization status; no updates needed at this time. # Encounter for long-term current use of medication (Z79.899) - Reviewed and refilled medications: rosuvastatin, clopidogrel, isosorbide, duloxetine, metoprolol,gabapentin, omeprazole. - Prescriptions sent to [facility]. # Pain in right hip (M25.551) - Pain localized to the right hip, likely muscular in origin. - Advised use of massage and gentle stretching exercises. - Monitor for any changes or worsening symptoms. # longterm (current) use of anticoagulants (Z79.01) - Continue clopidogrel 75 mg daily. - Prescription refilled and sent to [facility]. # Dermatitis, unspecified (L30.9) - Advised application of lotion followed by tallow to affected areas. - Monitor for improvement in skin condition. Karen Resendiz MD [facility] Instructions* Patient Instructions* Karen Resendiz MD - 05/11/2024 1:44 PM EDT - Refill your medications at [facility] to ensure you have enough supply before they run out. - Take Clopidogrel (Plavix) 75 mg once daily as prescribed. - Take Rosuvastatin as prescribed. - Take Isosorbide as prescribed. - Take Duloxetine as prescribed. - Take Amlodipine 10 mg as prescribed; consider discussing with your masonry installer about reducing the dose to 5 mg [...] swelling. - Schedule an appointment with your masonry installer to discuss adjusting your blood pressure medication. - Schedule an appointment with your dentist and inform them that you are taking Clopidogrel (Plavix). - Schedule an appointment with your field service consultant to discuss your living will and healthcare [...] review all the medicines you take, even tyfe-lfz-rfitatd medicines. As you get older, the way [...] have certain medical conditions. documented in [facility]04-[facility]25 NoteHNO ID: [id number] Author: KAREN RESENDIZ MD Service: ? Author [...] in the medical record. Outside specialists seen: [facility] Medical/Family history review Reviewed and [...] The patient consented to the use of Sonoma software for draft documentation of the visit consistent with [facility]?s Notice of Privacy Practices. Kalina is a 83-year-old female with a history of HI, HTN, and eczema, presenting for a Medicare Annual Wellness Visit. Kalina reports right hip pain that occurs when standing up and walking, but is alleviated by straightening the leg before walking. The pain is located in the anterior groin and buttocks. 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 She finds [...] amlodipine and has not yet contacted her masonry installer about reducing the dose. She also reports [...] has not seen her dentist since her HI, but plans to schedule an appointment. She [...] normal. Nose: Nose normal (more content not included)...[facility] 03-16-2024 Telephone encounter Note* Telephone Encounter - Karen Resendiz MD - 03/16/2024 2:30 AM EST The following approved medication requests have been transmitted electronically. Requested Prescriptions Pending Prescriptions Disp Refills omeprazole (PRILOSEC) 40 mg capsule 90 capsule 3 Sig: Take 1 capsule by mouth once daily. Karen Resendiz MD [facility]02-04-2025 Miscellaneous Notes* Telephone Encounter - Karen [...] 15, 2024 3:52 PM documented in this encounterTwin [facility]02-03-[facility]25 Telephone encounter Note * Telephone Encounter [...] Kym Cuellar March 15, 2024 3:52 PM [facility] Work Phone: [phone] 425-960001-31-2025 History of Present illness Narrative* Ariana Cardoza, RT(R) - 03/12/2024 12:30 PM EST Radiology [...] PATIENT PRESENTS WITH AN IMPLANTABLE OR ATTACHED LINUX NETWORK ENGINEER: No RADIOLOGY DEPARTMENT: General X-ray: Exam(s) Completed: Chest X-Ray PERIPHERAL IV DATA: Not applicable SIGNED BY: RT Sandra(R) March 12, 2024 12:24 PM documented in this encounterTwin City Hospital01-31-2025 NoteHNO ID: [id number] Author: ARIANA CARDOZA RT(R) Service: Radiology Author [...] PATIENT PRESENTS WITH AN IMPLANTABLE OR ATTACHED LINUX NETWORK ENGINEER: No RADIOLOGY DEPARTMENT: General X-ray: Exam(s) Completed: Chest X-Ray PERIPHERAL IV DATA: Not applicable SIGNED BY: RT Sandra(R) March 12, 2024 12:24 [facility]01-31-2025 Instructions* Patient Instructions* Alexei Skelton MD - 03/12/2024 12:21 PM EST Use Monistat first for yeast infection. Only if not better, take Diflucan tablet once. There is interaction with your Plavix. documented in this encounterTwin City Hospital01-31-2025 NoteHNO ID: [id number] Author: ALEXEI SKELTON MD Service: ? Author Type: Physician Type: Progress Notes Filed: 03/12/2024 13:48 Note Text: This note was created using SpectraLinearriter. Subjective Patient presents with: Cough: dry sounding [...] Partial Remission (Hcc) Coronary Artery Disease Involving [place] Coronary Artery of [place] Heart With Angina Pectoris (Hcc) S/P Angioplasty [...] three times a week. Miscellaneous Medical Supply [facility] probiotics--Yeast and Vaginal PH support [...] leg: No edema. Lymphadenopathy: (more content not included)...[facility] History of Present illness Narrative* Alexei Skelton MD - 03/12/2024 11:55 AM EST This note was created using wise.io. Subjective Patient presents with: Cough: dry sounding [...] Partial Remission (Hcc) Coronary Artery Disease Involving [place] Coronary Artery of [place] Heart With Angina Pectoris (Hcc) S/P Angioplasty [...] three times a week. Miscellaneous Medical Supply [facility] probiotics--Yeast and Vaginal PH support probiotic. Probiotic blend. Takes 1 by mouth at bedtime glycerin-min oil-polycarbophil (REPLENS) gel Uses Replens cream 3 times weekly COMPOUNDED PRESCRIPTION Massage therapy Dx: Fibromyalgia, Arthritis No current facility-administered medications for this visit. Objective BP 128/60 Pulse 81 Temp 37.8 C (100 F) (Temporal) Resp 20 Wt 63.3 kg (139 lb 8.8 oz) GoE392% BMI 25.94 kg/m Physical Exam Constitutional: General: [...] - Stable. 5. 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 (HCC) - ICD9: 414.01, 413.9, ICD10: I25.119 - Per Dr. Good. 6. S/P angioplasty with stent - ICD9: V45.89, ICD10: Z95.820 - Per Dr. Good. Alexei Skelton MD documented in this encounterTwin City Hospital01-31-2025 Telephone encounter Note * Telephone Encounter - Everardo Mensah RN - 03/12/2024 9:21 AM EST Pt reports dry cough for 2 weeks, only at night. Improved since 2 weeks ago, but just doesn't feel good and ribs hurt when taking a deep breath. Had mild sharp CP last night only. Lasted few seconds and it has not returned. With hx of HI with 3 stents in Jan 2024, used [...] 7. CARDIAC RISK FACTORS: Reports she had HI (at [facility]) in Jan, 2024. [facility] sent her to [facility] received 3 stents. Taking a blood thinner daily- plavix, has nitroglycerin pills. Taking metoprolol, baby asa, amlodipine 10 mg daily, losartan. Takes cholesterol medication at hs- just startedrecently. 8. PULMONARY RISK FACTORS No [...] 11. : Post menopause. Protocols used: Chest Bevl-BUAUM-UU [facility]01-31-[facility]25 Miscellaneous Notes* Telephone Encounter - Everardo Mensah RN - 03/12/2024 9:21 AM EST Pt reports dry cough for 2 weeks, only at night. Improved since 2 weeks ago, but just doesn't feel good and ribs hurt when taking a deep breath. Had mild sharp CP last night only. Lasted few seconds and it has not returned. With hx of HI with 3 stents in Jan 2024, used [...] 7. CARDIAC RISK FACTORS: Reports she had HI (at [facility]) in Jan, 2024. [facility] sent her to [facility] received 3 stents. Taking a blood thinner [...] 11. : Post menopause. Protocols used: Chest Uxmx-VIWWD-CL documented in this encounterTwin City Hospital12-23-2024 NoteHNO ID: [id number] Author: KORINA BILLY RN Service: ? Author Type: Registered Nurse Type: Progress Notes Filed: 02/02/2024 14:18 Note Text: Transitional Care Management (TCM) Follow-Up Note PCP Update / Actionable Items N/A - No specialty updates needed Patient Source: Edh-ka-Lbsxbha (OON) Discharge Outreach Summary: Spoke with patient for follow up , doing well at home. She is monitoring her BP but did not check it today yet , she does have them recorded but patient currently resting. Has some concerns regarding her recent care at [facility] which is not covered by her insurance. She does have some contacts to reach out to regarding more information on patient assistance Patient discharged from [facility]charge date: 01/19/2024 Admitted for: STEMI Readmission Risk: n/a Value-Based Contract: [employer] [place] Contact: Contact made with patient: Yes Spoke [...] Korina Billy RN February 02, 2024 2:17 [facility]12-23-2024 History of Present illness Narrative* Korina Billy RN - 02/02/2024 2:10 PM EST Transitional Care Management (TCM) Follow-Up Note PCP Update / Actionable Items N/A - No specialty updates needed Patient Source: Ici-zk-Eqegqdk (OON) Discharge Outreach Summary: Spoke with patient for follow up , doing well at home. She is monitoring her BP but did not check it today yet , she does have them recorded but patient currently resting. Has some concerns regarding her recent care at [facility] which is not covered by her insurance. She does have some contacts to reach out to regarding more information on patient assistance Patient discharged from [facility] Discharge date: 01/19/2024 Admitted for: STEMI Readmission [...] 02, 2024 2:17 PM documented in this encounterTwin City Hospital12-23-2024 NotePatient Outreach ([facility]) KALINA RUDD ([id number]) 1940 F [facility] Date Time Provider Department 02/02/24 KORINA BILLY During your visit today, we recorded the following information about you: Korina Billy RN 02/02/2024 2:18 PM Signed Transitional Care Management (TCM) Follow-Up Note PCP Update / Actionable Items N/A - No specialty updates needed Patient Source: Ffj-hs-Qlhrbao (OON) Discharge Outreach Summary: Spoke with patient for follow up , doing well at home. She is monitoring her BP but did not check it today yet , she does have them recorded but patient currently resting. Has some concerns regarding her recent care at [facility] which is not covered by her insurance. She does have some contacts to reach out to regarding more information on patient assistance Patient discharged from [facility] Discharge date: 01/19/2024 Admitted for: STEMI Readmission [...] ointment Actually gets compounded RX 0.07% through [facility] from INK JET OPERATOR to use twice weekly - Miscellaneous Medical Supply [employer] probiotics--Yeast and Vaginal [...] Fibromyalgia [M79.7] [place] (more content not included)...[facility] Instructions* Patient Instructions* Karen Resendiz MD [...] office to schedule an appointment with a masonry installer. - Follow up with cardiology on February 17. documented in this encounterTwin City Hospital12-17-2024 NoteHNO ID: [id number] Author: KAREN RESENDIZ MD Service: ? Author [...] visit. HPI Patient presents with: Hospital F/U: [facility] x 2 hospital visits SUBJECTIVE: Kalina Rudd [...] and stent placements, she was transferred to [facility] for further evaluation. Upon arrival to [...] 83-year-old female with a history of recent HI and stent placement, presenting for follow-up after two recent hospital admissions. Kalina reports experiencing back and chest pain following two recent hospital admissions for an HI, during which three stents were placed. She [...] Kalina has a follow-up appointment with her masonry installer on February 17, but she plans to switch to a local masonry installer due to insurance coverage issues. She expresses [...] mouth once daily. riley (more content not included)...[facility]12-17-[facility] History of Present illness Narrative* Karen [...] visit. HPI Patient presents with: Hospital F/U: [facility] x 2 hospital visits SUBJECTIVE: Kalina [...] and stent placements, she was transferred to [facility] for further evaluation. Upon arrival to [...] 83-year-old female with a history of recent HI and stent placement, presenting for follow-up after two recent hospital admissions. Kalina reports experiencing back and chest pain following two recent hospital admissions for an HI, during which three stents were placed. She [...] Kalina has a follow-up appointment with her masonry installer on February 17, but she plans to switch to a local masonry installer due to insurance coverage issues. She expresses [...] ointment Actually gets compounded RX 0.07% through [facility] from INK JET OPERATOR to use twice weekly Miscellaneous Medical Supply [place] probiotics--Yeast and Vaginal [...] and Plan # 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 (I25.10) # S/P [...] suppression. Karen Resendiz MD documented in this encounterTwin City Hospital12-16-2024 Discharge summary Date of Service 01/26/2024 [...] Patient follow-up primary care physician and primary masonry installer outpatient. Allergies sulfa drugs Pt unsure Consults [...] as needed as needed for dry eyes. [id number] Milligram by mouth once a day. rosuvastatin (rosuvastatin 20 mg oral tablet)1 tab(s) by mouth daily at bedtime for 90 Days. Refills: 4. Follow Up Follow Up with KAREN RESENDIZ MD When:Within 1-2 days Where:[address] [place] [address]- Follow Up with RODRIGO HAYES MD When:In 1 week Where:[address] [facility] [address] [facility] [place] [address]- [phone] Follow Up Appointments No qualifying data available. [...] KENNY KWAN MD on 01/26/2024 12:16 PM [facility] [id number] History and physical note Date of Service [...] and stent placements, she was transferred to [facility] for further evaluation. Upon arrival to [...] and stent placements, she was transferred to [facility] for further evaluation. Upon arrival to [...] HESHAM ORTIZ MD on 01/26/2024 08:49 AM [facility] HospitalCcqhexcc54-47-1114 NoteHNO ID: [id number] Author: HERMILA GONSALVES RN Service: ? Author [...] Date Last Occurrence Hospital Admission 1 01-17-24 [facility] Observation - N/A ED 1 01-24-24 SNF / Acute Rehab / LTAC - N/A ED DIAGNOSES/REASON(S) FOR ED USE: IMPRESSION: 1. COPD/emphysema with mild groundglass edema either due to developing volume overload or pneumonitis 2. No demonstrated pulmonary embolism or arterial dissection. At this point time we will discuss the case with [facility] cardiology for further evaluation management. I called and discussed case with Dr. Gerson Ly who states that he would recommend transferring the patient back to [facility] for further evaluation management given her [...] Resendiz MD; Dr. Mejia Shah DO ~ Cigarette Paper Tester: Signed OTHER FINDINGS/SUMMARY: Patient Attributed To: QAE Payer: Pedro MONROY Action Taken: Referrals/Routed: none Contact made with patient: No, Chart review only. Signature: Hermila Gonsalves RN To: QAE Payer: Pedro MONROY Action Taken: Referrals/Routed: Contact made with patient: No, Chart review only. Signature: Hermila [facility]onsalves [facility] History of Present illness Narrative* Hermila [...] Date Last Occurrence Hospital Admission 1 01-17-24 [facility] Observation - N/A ED 1 01-24-24 SNF / Acute Rehab / LTAC - N/A ED DIAGNOSES/REASON(S) FOR ED USE: IMPRESSION: 1. COPD/emphysema with mild groundglass edema either due to developing volume overload or pneumonitis 2. No demonstrated pulmonary embolism or arterial dissection. At this point time we will discuss the case with [facility] cardiology for further evaluation management. I called and discussed case with Dr. Gerson Ly who states that he would recommend transferring the patient back to [facility] for further evaluation management given her [...] Resendiz MD; Dr. Mejia Shah DO ~ Cigarette Paper Tester: Signed OTHER FINDINGS/SUMMARY: Patient Attributed To: QAE Payer: Pedro MONROY Action Taken: Referrals/Routed: none Contact made with patient: No, Chart review only. Signature: Hermila Gonsalves RN To: QAE Payer: Pedro MONROY Action Taken: Referrals/Routed: Contact made with patient: No, Chart review only. Signature: Hermila Gonsalves RN documented in this encounterTwin City Hospital12-16-2024 Hospital Discharge instructions Patient Education 01/26/2024 11:19:26 Angina, Eltj-lv-Elhp Angina Angina is very bad discomfort or [...] Follow these instructions at home: Medicines Take izmm-bqt-dwoksph and prescription medicines only as told by [...] 07/15/2008 Document Revised: 09/14/2018 Document Reviewed: 09/14/2018 [employer] Patient Education 2020 [employer] Follow Up Care 01/24/2024 15:14:13 With:KAREN RESENDIZ MD Address: [address] [place] [address]- When:1-2 days With:RODRIGO HAYES MD Address: [address] [facility] [address] [facility] [place] [address]- [phone] When:Within 1 Week(s) [facility] 12-16-2024 Discharge summary Date of Service [...] Patient follow-up primary care physician and primary masonry installer outpatient. Allergies sulfa drugs Pt unsure Consults [...] as needed as needed for dry eyes. [id number] Milligram by mouth once a day. rosuvastatin (rosuvastatin 20 mg oral tablet)1 tab(s) by mouth daily at bedtime for 90 Days. Refills: 4. Follow Up Follow Up with KAREN RESENDIZ MD When:Within 1-2 days Where:[address] [place] [address]- Follow Up with RODRIGO HAYES MD When:In 1 week Where:[address] [facility] [address] [place] [address] [phone] Follow Up Appointments No qualifying data available. [...] KENNY KWAN MD on 01/26/2024 12:16 PM [facility] [id number] Note Discharge Instructions Thank you for allowing [facility] to assist you with your healthcare needs. The following is importantdischarge information regarding your hospital visit. Your Care Team KAREN RESENDIZ MD What to do next Scheduled Follow-Up Appointments Appointment Type When With Where [facility] Follow Up 02/18/2024 11:30 AM JULISSA JOYNER CEDARTOWNTOBIAS [facility] Confirmed Follow Up Appointments Follow Up with KAREN RESENDIZ MD When:Within 1-2 days Where:[address] [place] [address]- Follow Up with RODRIGO HAYES MD When:In 1 week Where:[address] [facility] [address] [place] [address] [phone] The Following Activity and Diet Have Been [...] Once a day Refills: 4 Pickup at [facility] New isosorbide mononitrate (isosorbide mononitrate 30 mg oral tablet, extended release) 1 tab(s) by mouth Once a day before a meal Refills: 4 Pickup at [facility] Changed losartan (losartan 50 mg oral tablet) 1 tab(s) by mouth Once a day Pickup at [place] [address] Unchanged aspirin (aspirin 81 mg oral delayed [...] at bedtime Duration: 90 Days Pharmacy Information [facility] [address] [id number] [phone] Please take this list to your next [...] Follow these instructions at home: Medicines Take mpna-rui-jzzpomz and prescription medicines only as told by [...] 07/15/2008 Document Revised: 09/14/2018 Document Reviewed: 09/14/2018 [employer] Patient Education 2020 [employer] Additional Information VACCINATE! IT SAVES LIVES! Members of the community who have not yet received the COVID-19 vaccine and would like to receive it can visit one of [facility] vaccine clinics. There are many vaccine clinic locations within the State. For locations and available times, please visit https://gettheshot.coronavirus.[place].gov/. It is important to note that some COVID mobile vaccine clinics are held outdoors and may be canceled in rainy or stormy conditions. To learn more about pediatric vaccinations (ages 5-11), we invite you to visit the [facility] webpage. [email or web address]/[email or web address]-[email or web address] [email or web address].htmlTo learn more about the COVID-19 vaccine, we invite you to visit the CDC website for a list of frequently asked questions.https://www.cdc.gov/coronavirus/2019-ncov/vaccines/faq.html [facility] Patient Portal Access Instructions: Stay connected with your healthcare team and access your personal medical information anytime with the [facility] Patient Portal. Please follow the directions below to create your [facility] account: 1.Access the email account you provided upon registration to the hospital/physician office.2.Look for an invitation email from [facility].3.Open the email and access the invitation link: AcceptInvitation to [facility].4.Fill in the required antony to create your account. To access your account, visit [email or web address]. Click the blue button labeled Access Patient [...] who you will allowto register on the [facility] Patient Portal for access to your information. You can also access the [facility] Patient Portal on the S3Bubble Anywhere sammy. Simply click on Patient Portal and then log into your account. If you would like to receive a full copy of your medical records, please contact the [facility] Medical Records Department by calling [phone], Friday through Friday between 8 a.m. and [...] Call your local pharmacy or go to [email or web address] [email or web address]/[email or web address] to find one close to you.3.Make use of household items: Use cat litter or old coffee grounds to dispose medications if other options arenot available. Mix your drugs with these household products, seal them in an airtight container andthrow it into the garbage. Call [facility]: [phone] to be sure your drugs can be [...] CHART COPY. Signatures Patient Education Materials Angina, Padq-mp-Cpsl Medication Leaflets My discharge plan and instructions have been reviewed and explained to me and I,KALINA RUDD understand my current condition and have read and understand these discharge instructions. I have received a written copy of the plan/instructions. If I have questions, I am aware that I should contactmy doctor. 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 Reason for review or outreach: Chart Review [facility] Emergency Department Utilization REQUESTED ACTION/FYI: A follow-up appointment is noted to be scheduled on 01-27-24. Exclusion Criteria - Does not meet exclusion criteria Utilization in past 6 months: # Occurrences Date Last Occurrence Hospital Admission 01-17-24 [facility] Observation - N/A ED 01-24-24 SNF / Acute Rehab / LTAC - N/A ED DIAGNOSES/REASON(S) FOR ED USE: IMPRESSION: 1. COPD/emphysema with mild groundglass edema either due to developing volume overload or pneumonitis 2. No demonstrated pulmonary embolism or arterial dissection. At this point time we will discuss the case with [facility]ology for further evaluation management. I called and discussed case with Dr. Gerson Ly who states that he would recommend transferring the patient back to [facility] for further evaluation management given her [...] Resendiz MD; Dr. Mejia Shah DO ~ Cigarette Paper Tester: Signed OTHER FINDINGS/SUMMARY: Patient Attributed To: [place] Payer: Pedro MONROY Action Taken: Referrals/Routed: none Contact made with patient: Monalisa, Chart review only. Signature: Hermila Gonsalves RN To: ARGENTINA Hammond: Pedor MONROY Action Taken: Referrals/Routed: Contact made with [...] Assessed Reason for Visit: ACM LUCIAN RN [[id number]] Cmt: No action needed. Prescriptions as of [...] ointment Actually gets compounded RX 0.07% through [facility] from [employer] to use twice weekly - [employer] Love[employer] probiotics--Yeast and Vaginal [...] partial*09/08/2017 Encounter Status:Closed by HERMILA GONSALVES on 01/26/24[facility] 01-25-2024 Evaluation + Plan noteExtracted from: [...] and stent placements, she was transferred to [facility] for further evaluation. Upon arrival to [...] Appointment Date:02/18/2024 11:30:00 AM Scheduled Provider:SAMANTHA JOYNER Location:[facility] Appointment Type:CV Hospital Follow Up [facility] 12-15-2024 NoteSINUS RHYTHM LVH WITH SECONDARY REPOLARIZATION ABNORMALITY Electronic Signature: KAREN JULIEN MD 01/26/2024 08:36:53[facility] 12-15-2024 History and physical note Date [...] and stent placements, she was transferred to [facility] for further evaluation. Upon arrival to [...] and stent placements, she was transferred to [facility] for further evaluation. Upon arrival to [...] HESHAM ORTIZ MD on 01/26/2024 08:49 AM [facility] [id number] NoteSINUS RHYTHM VENTRICULAR PREMATURE COMPLEX LVH WITH SECONDARY REPOLARIZATION ABNORMALITY INFERIOR INFARCT, OLD Electronic Signature: GERSON LY MD 01/25/2024 20:41:59[facility] 12-13-2024 Telephone encounter Note* Telephone Encounter [...] patient that she has a prescription at [facility] if not able to locate. Reviewed care advice and red flag symptoms to go to ER with. Patient verbalizes understanding and will look for amlodipine. nurse is there now to assist patient. Patient to call back with any further questions. Odessa Ackerman RN [facility]12-13-2024 Miscellaneous Notes* Telephone Encounter - Odessa [...] patient that she has a prescription at [facility] if not able to locate. Reviewed care advice and red flag symptoms to go to ER with. Patient verbalizes understanding and will look for amlodipine. nurse is there now to assist patient. Patient to call back with any further questions. Odessa Ackerman RN [facility] NoteHNO ID: [id number] Author: KORINA BILLY RN Service: ? Author Type: Registered Nurse Type: Progress Notes Filed: 01/21/2024 11:31 Note Text: Transition Care Management (TCM) Initial Outreach PCP Update / Actionable Items N/A - No specialty updates needed Patient Source: Hji-xw-Ckgashe (OON) Discharge Outreach Summary: spoke with patient doing well at home, denies any worsening chest pain. Recovering from surgery. Has not checked BP yet today but will be taking her medications soon and will check this awhile after taking. Assisted with PCP follow up appointment for 01/26 Patient discharged from [facility] Discharge date: 01/19/2024 Admitted for: CP, STEMI Readmission Risk: n/a Value-Based Contract: Pedro MONROY Contact: Contact made with patient: Yes Hi, my name is Korina Billy RN and I am calling from the [facility] on behalf of your Primary Care [...] like to speak with a social work user experience team lead to help give you support for any [...] I will send your request to a family engagement specialist who will contact and assist you with [...] a previously scheduled follow-up appointment, route to [facility] for updated appointment type or [...] Korina Billy RN January 21, 2024 11:29 [facility]12-11-2024 History of Present illness Narrative* Korina Billy RN - 01/21/2024 11:23 AM EST Transition Care Management (TCM) Initial Outreach PCP Update / Actionable Items N/A - No specialty updates needed Patient Source: [id number]-Qsxvfkv (OON) Discharge Outreach Summary: spoke with patient doing well at home, denies any worsening chest pain. Recovering from surgery. Has not checked BP yet today but will be taking her medications soon and will check this awhile after taking. Assisted with PCP follow up appointment for 01/26 Patient discharged from [facility] Discharge date: 01/19/2024 Admitted for: CP, STEMI Readmission Risk: n/a Value-Based Contract: Pedro MONROY Contact: Contact made with patient: Yes Hi, my name is Korina Billy RN and I am calling from the [facility] on behalf of your Primary Care [...] like to speak with a social work user experience team lead to help give you support for any [...] I will send your request to a family engagement specialist who will contact and assist you with [...] a previously scheduled follow-up appointment, route to [facility] for updated appointment type or to schedule [...] 21, 2024 11:29 AM documented in this encounterTwin [facility]12-[facility]-2024 NotePatient Outreach ([facility]) KALINA RUDD ([id number]) 1940 F CHT Date Time Provider Department 01/21/24 KORINA BILLY During your visit today, we recorded the following information about you: Korina Billy RN 01/21/2024 11:31 AM Signed Transition Care Management (TCM) Initial Outreach PCP Update / Actionable Items N/A - No specialty updates needed Patient Source: Jub-sr-Hkkpayq (OON) Discharge Outreach Summary: spoke with patient doing well at home, denies any worsening chest pain. Recovering from surgery. Has not checked BP yet today but will be taking her medications soon and will check this awhile after taking. Assisted with PCP follow up appointment for 01/26 Patient discharged from [facility] Discharge date: 01/19/2024 Admitted for: CP, STEMI Readmission Risk: n/a Value-Based Contract: Pedro MONROY Contact: Contact made with patient: Yes Hi, my name is Korina Billy RN and I am calling from the [facility] on behalf of your Primary Care [...] like to speak with a social work user experience team lead to help give you support for any [...] I will send your request to a family engagement specialist who will contact and assist you with [...] a previously scheduled follow-up appointment, route to [facility] for updated appointment type or [...] for Visit: Transition Of Care [4074] Cmt: Hospital discharge [facility] 01/19/2024 - Initial outreach Prescriptions as of 01/21/2024 - metoprolol succinate ER (TOPROL XL) 50 mg 24 hr tablet Ta (more content not included)...[facility]12-10-2024 Discharge summary Date of Service 01/20/2024 Discharge Diagnosis NSTEMI Multivessel disease s/p PCI Hx of HTN Hospital Course 83-year-old female with past medical hx of HTN and chronic pain presented from [facility] as a transfer with concerns for STEMI. Patient presented to [facility] ER initially with concerns of elevated blood [...] was injected she then underwent 3 shocks. 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 When patient arrived patient was chest pain-free on IV heparin drip and IV nitroglycerin. On presentation to [facility], she was chest pain-free, was not [...] should follow up with Dr. Rodrigo Hayes, Hydrologic Engineer following discharge Repeat BMP in 1 week [...] up with your Primary Care Physician and Hydrologic Engineer as recommended. _ 2. Some of your [...] reach out to our [facility] office at [phone] for general queries and [phone] for medication refills. 4. All your medical records and results are available to you through our [employer] Patient Portal. Tosign up, please visit [email or web address] Medications New Prescription aspirin (aspirin 81 mg [...] as needed as needed for dry eyes. [id number] Milligram by mouth once a day. Discontinued amLODIPine (amLODIPine 2.5 mg oral tablet)1 tab(s) by mouth once a day. estradiol (estradiol 0.025 mg/24 hours weekly transdermal film, extended release)1 patch(es) Topical every week. Follow Up Follow Up with KAREN RESENDIZ MD When:Within 5 to 7 days Where:[address], [place] [id number]- Follow Up with JOEL JOYNER MD When:02/18/2024 11:30 AM EST Where:[address] [place] [address]- [phone] Follow Up Appointments No qualifying data available. [...] PM Digitally Signed by ALIN THOMPSON MD [facility] HospitalHkpiiajx60-25-3930 Hospital Discharge instructions Patient Education 01/20/2024 16:20:37 [...] need to report the following to your masonry installer: Any draining or oozing from the site [...] Document Reviewed: 01/28/2014 ExitCare Patient Information 2015 [employer]. This information is not intended to replace [...] Document Reviewed: 01/28/2014 ExitCare Patient Information 2015 [employer]. This information is not intended to replace advicegiven to you by your health care provider. Make sure you discuss any questions you have with your health care provider. Follow Up Care 01/18/2024 01:40:06 With:KAREN RESENDIZ MD Address: [address], [place] [id number]- When:5 to 7 days With:JOEL JOYNER MD Address: [address] [place] [address]- [phone] When:02/18/2024 11:30:00 [facility] 12-10-2024 Note Discharge Instructions Thank you for allowing [facility] to assist you with your healthcare needs. The following is importantdischarge information regarding your hospital visit. Your Care Team KAREN RESENDIZ MD What to do next Instructions From Your Doctor 1. Kindly follow up with your Primary Care Physician and Hydrologic Engineer as recommended. _ 2. Some of your [...] reach out to our [facility] office at [phone] for general queries and [phone] for medication refills. 4. All your medical records and results are available to you through our [employer] Patient Portal. Tosign up, please visit [email or web address] Scheduled Follow-Up Appointments Appointment Type When With Where Contact Information StatusCV OV Hospital Follow Up 02/18/2024 11:30 AM EST SAMANTHA JOYNER [facility] CV Confirmed Follow Up Appointments Follow Up with KAREN RESENDIZ MD When:Within 5 to 7 days Where:[address] [place] [address]- Follow Up with JOEL JOYNER MD When:02/18/2024 11:30 AM EST Where:[address] [place] [address]- [phone] The Following Activity and Diet Have Been [...] Duration: 90 Days Refills: 5 [address] [facility] New clopidogrel (Plavix 75 mg oral tablet) 1 tab(s) by mouth Once a day Duration: 90 Days Refills: 4 Pickup at [facility] New losartan (losartan 25 mg oral tablet) 1 tab(s) by mouth Once a day Duration: 30 Days Refills: 5 Pickup at [facility] New rosuvastatin (rosuvastatin 20 mg oral tablet) 1 tab(s) by mouth Daily at bedtime Duration: 90 Days Refills: 4 Pickup at [facility] Changed metoprolol (metoprolol succinate 50 mg oral TABLET extended release) 1 tab(s) by mouth Once a day Duration: 30 Days Do not crush or chew (controlled release) Pickup at [facility] Unchanged crisaborole topical (crisaborole 2% topical ointment) [...] by mouth Once a day Pharmacy Information [facility]: [address] [place] [phone] What How Much When Comments Stop Taking [...] providers or retail pharmacies. Medication Leaflets losartan (jair Melton What is the most important information [...] may report side effects to FDA at 1-111-EIP-4544. What other drugs will affect losartan? Sometimes [...] drugs may affect losartan, including prescription and zvdl-amq-yrukeyb medicines, vitamins, and herbal products. Not all [...] to ensure that the information provided by [employer]. ('[employer]') is accurate, up-to-date, and complete, but no guarantee is made to that effect. Drug information contained herein may be time sensitive. [employer] information has been compiled for use by healthcare practitioners and consumers in the [place] and therefore [employer] does not warrant that uses outside of the [place] are appropriate, unless specifically indicated otherwise. [employer]'s drug information does not endorse drugs, diagnose patients or recommend therapy. [employer] drug information isan informational resource designed to [...] effective or appropriate for any given patient. [employer] does not assume any responsibility for any aspect of healthcare administered with the aid of information [employer] provides. The information contained herein is not intended to cover all possible uses, directions, precautions, warnings, drug interactions, allergic reactions, or adverse effects. If you have questions about the drugs you are taking, check with your doctor, nurse or pharmacist. Copyright 0336-5701 [employer]. Version: 19.01. Revision Date: 08/08/2022. clopidogrel (kloe PID oh [...] may report side effects to FDA at 3-680-RKP-6332. What other drugs will affect clopidogrel? Sometimes it is not safe to use certain medications at the same time. Some drugs can affect your blood levels of other drugs you take, which may increase side effects or make the medications less effective. Tell your doctor about all your other medicines, especially: a stomach acid student advisor such as omeprazole, Nexium, or Prilosec; an antidepressant such as citalopram, fluoxetine, sertraline, Cymbalta, Effexor, Lexapro, Pristiq, or Prozac; rifampin; a blood thinner--warfarin, Coumadin, Jantoven; or NSAIDs (nonsteroidal anti-inflammatory drugs)--aspirin, ibuprofen (Advil, Motrin), naproxen (Aleve), celecoxib, diclofenac, indomethacin, meloxicam, and others. This list is not complete. Other drugs may affect clopidogrel, including prescription and iill-bne-ejetcuj medicines, vitamins, and herbal products. Not all [...] to ensure that the information provided by [employer]. ('[employer]') is accurate, up-to-date, and complete, but no guarantee is made to that effect. Drug information contained herein may be time sensitive. [employer] information has been compiled for use by healthcare practitioners and consumers in the [place] and therefore [employer] does not warrant that uses outside of the [place] are appropriate, unless specifically indicated otherwise. [employer] drug information does not endorse drugs, diagnose patients or recommend therapy. [employer] drug information isan informational resource designed to [...] effective or appropriate for any given patient. [employer] does not assume any responsibility for any aspect of healthcare administered with the aid of information [employer] provides. The information contained herein is not intended to cover all possible uses, directions, precautions, warnings, drug interactions, allergic reactions, or adverse effects. If you have questions about the drugs you are taking, check with your doctor, nurse or pharmacist. Copyright 3167-4783 [employer]. Version: 18.01. Revision Date: 05/10/2020. rosuvastatin (brianne HUSSEIN [facility]) Shawn Ezallles Sean What is the most important information I [...] may report side effects to FDA at 5-861-GBP-8696. What other drugs will affect rosuvastatin? When [...] drugs may affect rosuvastatin, including prescription and yken-mbh-mpyozpo medicines, vitamins, and herbal products. Not all [...] to ensure that the information provided by [employer]. ('[employer]') is accurate, up-to-date, and complete, but no guarantee is made to that effect. Drug information contained herein may be time sensitive. [employer] information has been compiled for use by healthcare practitioners and consumers in the [place] and therefore [employer] does not warrant that uses outside of the [place] are appropriate, unless specifically indicated otherwise. [employer] drug information does not endorse drugs, diagnose patients or recommend therapy. [employer] drug information isan informational resource designed to [...] effective or appropriate for any given patient. [facility] does not assume any responsibility for any aspect of healthcare administered with the aid of information [facility] provides. The information contained herein is not intended to cover all possible uses, directions, precautions, warnings, drug interactions, allergic reactions, or adverse effects. If you have questions about the drugs you are taking, check with your doctor, nurse or pharmacist. Copyright 7787-6254 [employer]. Version: 13.. Revision Date: 11/16/2019. metoprolol (oral/injection) [...] may report side effects to FDA at 0-864-TOQ-1879. What other drugs will affect metoprolol? Tell your doctor about all your current medicines. Many drugs can affect metoprolol, especially: any other heart or blood pressure medications; epinephrine (Epi-Pen); an antidepressant; an ergot medicine--dihydroergotamine, ergonovine, ergotamine, methylergonovine; or an MAO inhibitor--isocarboxazid, linezolid, phenelzine, rasagiline, selegiline, tranylcypromine. This list is not complete and many other drugs may affect metoprolol. This includes prescription and veus-ods-hirlhij medicines, vitamins, and herbal products. Not all [...] to ensure that the information provided by [employer]. ('[employer]') is accurate, up-to-date, and complete, but no guarantee is made to that effect. Drug information contained herein may be time sensitive. [employer] information has been compiled for use by healthcare practitioners and consumers in the [place] and therefore [employer] does not warrant that uses outside of the [place] are appropriate, unless specifically indicated otherwise. [employer] drug information does not endorse drugs, diagnose patients or recommend therapy. [employer] drug information isan informational resource designed to [...] effective or appropriate for any given patient. [employer] does not assume any responsibility for any aspect of healthcare administered with the aid of information [employer] provides. The information contained herein is not intended to cover all possible uses, directions, precautions, warnings, drug interactions, allergic reactions, or adverse effects. If you have questions about the drugs you are taking, check with your doctor, nurse or pharmacist. Copyright 8765-4967 [employer]. Version: 19.01. Revision Date: 09/18/2022. Education Materials HEART CATHETERIZATION/PCI [...] need to report the following to your masonry installer: Any draining or oozing from the site [...] Document Reviewed: 01/28/2014 ExitCare Patient Information 2015 [employer]. This information is not intended to replace [...] Document Reviewed: 01/28/2014 ExitCare Patient Information 2015 [employer]. This information is not intended to replace advicegiven to you by your health care provider. Make sure you discuss any questions you have with your health care provider. Additional Information VACCINATE! IT SAVES LIVES! Members of the community who have not yet received the COVID-19 vaccine and would like to receive it can visit one of [facility] vaccine clinics. There are many vaccine clinic locations within the [facility]. For locations and available times, please visit [email or web address] I (morecontent not included)... [facility] HospitalXomeqmwy05-26-3840 NoteSINUS RHYTHM ATRIAL PREMATURE COMPLEX PROBABLE LVH WITH SECONDARY REPOL ABNRM INFERIOR INFARCT, OLD Electronic Signature: AKHIL THOMAS MD 01/20/2024 19:03:55[facility] 12-09-2024 Progress note Date of Service 01/19/2024 Chief Complaint Transfer from [facility] with hypertension and concerns for STEMI [...] of hypertension and chronic pain, presented from [facility] as a transfer with concerns for STEMI. At [facility] patient underwent cardiac catheterization which showed [...] PM Digitally Signed by ALIN THOMPSON MD [facility] [id number] NoteSINUS RHYTHM INFERIOR INFARCT, OLD Electronic Signature: AKHIL THOMAS MD 01/20/2024 19:03:43[facility] 12-09-2024 Note* Exam Date Time Procedure Performing Provider Status 01/19/24 2:03 PM Percut Transluminal Coronary Angioplasty Auth (Verified) [facility] 12-09-2024 Progress note Date of Service 01/18/2024 Chief Complaint Transfer from [facility] with hypertension and concerns for STEMI [...] 6 hours Electrocardiogram (EKG) - Ordered -- 12/08/24 10:36:00 EST Assessment/Plan NSTEMI History of hypertension DVT prophylaxis FULL CODE 83-year-old female with PMH of hypertension and chronic pain, presented from [facility] as a transfer with concerns for STEMI. At [facility] patient underwent cardiac catheterization which showed severe multivessel CAD involving the LAD, OM and RCA. Patient patient went into V-fib after the RCA was injected, she then underwent 3 shock, before she revived. Patient was started on IV heparin drip and IV nitroglycerin, and was transferred to [facility] with STEMI alert. Will continue heparin and nitroglycerin for now. Coronary angiographic imaging was reviewed with Dr. Hayes, plan is to do PCI to OM1 and LAD tomorrow on Friday01/19/2024. Will continue aspirin and statin Time Spent 30 minutes Digitally Signed by PAM HERNANDEZ MD on 01/18/2024 03:37 PM Digitally Signed by PAM HERNANDEZ MD on 01/18/2024 03:42 PM [facility] [id number] NoteSINUS TACHYCARDIA VENTRICULAR PREMATURE COMPLEX INFERIOR INFARCT, OLD Electronic Signature: AKHIL THOMAS MD 01/20/2024 19:03:35[facility] 12-08-2024 Progress note Date of Service 01/18/2024 Chief Complaint Transfer from [facility] with hypertension and concerns for STEMI [...] of hypertension and chronic pain, presented from [facility] as a transfer with concerns for STEMI. At [facility] patient underwent cardiac catheterization which showed severe multivessel CAD involving the LAD, OM and RCA. Patient patient went into V-fib after the RCA was injected, she then underwent 3 shock, before she revived. Patient was started on IV heparin drip and IV nitroglycerin, and was transferred to [facility] with STEMI alert. Will continue heparin and nitroglycerin for now. Coronary angiographic imaging was reviewed with Dr. Hayes, plan is to do PCI to OM1 and LAD tomorrow on Friday01/19/2024. Will continue aspirin and statin Time Spent 30 minutes Digitally Signed by PAM HERNANDEZ MD on 01/18/2024 03:37 PM Digitally Signed by PAM HERNANDEZ MD on 01/18/2024 03:42 PM [facility] [id number] Evaluation + Plan noteExtracted from: Title:History and Physical Author:EDGAR ANDRE MD Date:01/18/24 NSTEMI History of hypertension DVT prophylaxis CODE STATUS Past medical history hypertension, chronic pains. At [facility] patient underwent cardiac catheterization which showed severe multivessel CAD involving the LAD, OM and RCA it appears patient went into V-fib after the RCA was injected, she then underwent 3 shock, before she revived. Patient was started on IV heparin drip and IV nitroglycerin, and was transferred to [facility] with STEMI alert. Patient is currently [...] Appointment Date:02/18/2024 11:30:00 AM Scheduled Provider:SAMANTHA JOYNER Location:[facility] Appointment Type:CV Hospital Follow Up [facility] 12-08-2024 History and physical note Date of Service 01/18/2024 Chief Complaint Transfer from [facility] with hypertension and concerns for STEMI History of Present Illness 83-year-old female presented from [facility] as a transfer with concerns for STEMI. Past medical history significant for hypertension and chronic pain. Patient presented to [facility] this morning with concerns of elevated [...] was injected she then underwent 3 shocks. 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 When patient arrived patient was chest pain-free on IV heparin drip and IV nitroglycerin. On presentation to [facility], she was chest pain-free, was not [...] Past medical history hypertension, chronic pains. At [facility] patient underwent cardiac catheterization which showed severe multivessel CAD involving the LAD, OM and RCA it appears patient went into V-fib after the RCA was injected, she thenunderwent 3 shock, before she revived. Patient was started on IV heparin drip and IV nitroglycerin, and was transferred to [facility] with STEMI alert. Patient is currently [...] EDGAR ANDRE MD on 01/18/2024 06:39 AM [facility] [id number] History and physical note Date of Service 01/18/2024 Chief Complaint Transfer from [facility] with hypertension and concerns for STEMI History of Present Illness 83-year-old female presented from [facility] as a transfer with concerns for STEMI. Past medical history significant for hypertension and chronic pain. Patient presented to [facility] ER this morning with concerns of elevated [...] was injected she then underwent 3 shocks. 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 When patient arrived patient was chest pain-free on IV heparin drip and IV nitroglycerin. On presentation to [facility], she was chest pain-free, was not [...] Past medical history hypertension, chronic pains. At [facility] patient underwent cardiac catheterization which showed severe multivessel CAD involving the LAD, OM and RCA it appears patient went into V-fib after the RCA was injected, she thenunderwent 3 shock, before she revived. Patient was started on IV heparin drip and IV nitroglycerin, and was transferred to [facility] with STEMI alert. Patient is currently [...] Full Code, Constant Order Digitally Signed by DEGAR ANDRE MD on 01/18/2024 06:39 AM [facility] [id number] Note ORIGINAL EXAMINATION: ONE XRAY VIEW OF [...] Date: 01/18/2024 5:35:45 AM Ordering Provider: KENNY KWANOhiohealth Grady Memorial [id number] Cardiology Progress note Patient was paged out as a STEMI alert to [facility] after already being paged out as a STEMIalert at [facility] she underwent a cardiac catheterization which showed severe multivessel CAD involving the LAD, OM, and RCA. It appears patient went into VT/V-fib after the RCA was injected she then underwent 3 shocks. 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 When [...] KENNY KWAN MD on 01/18/2024 05:29 AM [facility] [id number] NoteSINUS RHYTHM LEFT ATRIAL ENLARGEMENT BORDERLINE LEFT AXIS DEVIATION NONSPECIFIC ST & T-WAVE ABNORMALITY Electronic Signature: ELLEN MUÑIZ MD 01/18/2024 14:47:25[facility] 12-07-2024 NoteHNO ID: [id number] Author: SHEILA FRANK MD Service: ? Author Type: Physician Type: Progress Notes Filed: 01/17/2024 16:08 Note Text: Virtualist Progress Note Triage Call I have communicated my name and active licensure. The patient's identity and physical location were verified at the time of this visit. Either the patient or their legal bilingual sales representative has been informed of the risks and benefits of -- and alternatives to -- treatment through a remote evaluation and consents to proceed with the evaluation remotely. Triage source: Triage Call (Nurse Programmer Or Analyst, Medical Care at Home - [facility] Triage, [facility] Triage, [facility] Phone Triage) Was patient downgraded (i.e. disposition [...] in as Primary Virtualist, Secondary Virtualist, or [facility] Telehealth provider: Secondary SIGNATURE: Sheila Frank MD PATIENT NAME: Kalina Mcgee Benchoff DATE: January 17, 2024 [facility]12-07-2024 History of Present illness Narrative* Sheila Frank MD - 01/17/2024 3:55 PM EST Virtualist Progress Note Triage Call I have communicated my name and active licensure. The patient's identity and physical location wereverified at the time of this visit. Either the patient or their legal bilingual sales representative has been informed of the risks and benefits of -- and alternatives to -- treatment through a remote evaluation andconsents to proceed with the evaluation remotely. Triage source: Triage Call (Nurse Programmer Or Analyst, [facility] at [facility] - [facility] Triage, [facility] Triage, [facility] Phone Triage) Was patient downgraded (i.e. disposition [...] Nurse Triage Disposition (If call is from Home Care, [facility] nurse triage, or an [facility] Care, the disposition is Go to ED Now): See provider within 4 hours Virtualist Recommended Disposition: Go to ED if she still has a SANTOS in 30-60 minutes. She should call PCP with current BP readings Signed in as Primary Virtualist, Secondary Virtualist, or [facility] Telehealth provider: Secondary SIGNATURE: Sheila Frank MD PATIENT NAME: Kalina Reedoff DATE: January 17, 2024 [facility] Telephone encounter Note * Telephone Encounter [...] : na Protocols used: Blood Pressure - [id number] [facility]12-07-2024 Miscellaneous Notes* Telephone Encounter - Cristina [...] : na Protocols used: Blood Pressure - [id number] documented in this encounterTwin City Hospital11-22-2024 Telephone encounter Note * Telephone Encounter - Jimena Pennington LPN - 01/02/2024 11:41 AM EST Per PA results not PA needed this is available to pt. [facility]11-22-2024 Miscellaneous Notes* Telephone Encounter - Jimena Pennington LPN - 01/02/2024 11:41 AM EST Per PA results not PA needed this is available to pt. * Telephone Encounter - Jimena Pennington LPN - 01/02/2024 8:17 AM EST Images from the original note were not included. Electronic PA completed ands response. Prior authorization approved Payer: Pedro [phone] Note from payer: MARCUS Case: [id number], Status: Approved, Coverage Starts on: 01/01/2024 8:02:06 [...] to its destination. To be filled at: [facility] [place] [address] [phone] [facility] -[phone] documented in this encounterTwin City Hospital11-22-2024 Telephone encounter Note * Telephone Encounter - Jimena Pennington LPN - 01/02/2024 8:17 AM EST Images from the original note were not included. Electronic PA completed ands response. Prior authorization approved Payer: [employer] [phone] Note from payer: MARCUS Case: [id number], Status: Approved, Coverage Starts on: 01/01/2024 8:02:06 [...] to its destination. To be filled at: [facility] [place] [address] [phone] [facility] -[phone] [facility]11-21-2024 Instructions* Patient Instructions* Maddie Sahu APRN.CNS - 01/01/2024 3:43 PM EST Take amlodipine 2.5 mg once daily for a blood pressure 150/80 or greater documented in this encounterTwin City Hospital11-21-2024 History of Present illness Narrative* Maddie [...] ointment Actually gets compounded RX 0.07% through [facility] from [employer] to use twice weekly Miscellaneous Medical Supply [facility] probiotics--Yeast and Vaginal PH support [...] exercise 1 mo recheck BP Maddie Sahu APRN.FORMSTONE FITTER Medical Decision Making: Problems: Moderate: 1+ chronic illnesses with change Risk: Moderate: Drug management Medical Decision Making Level: 4 - Moderate documented in this encounterTwin City Hospital11-21-2024 NoteHNO ID: [id number] Author: MADDIE SAHU APRN.NICK Service: ? Author Type: Nurse Specialist Type: [...] ointment Actually gets compounded RX 0.07% through [facility] from [employer]K [employer] OPERATOR to use twice weekly Miscellaneous Medical Supply [place] probiotics--Yeast and Vaginal [...] Smokeless tobacco: Never Substance (more content not included)...[facility]11-21-2024 Telephone encounter Note* Telephone Encounter - [...] DAILY DIRECTED Authorizing Provider: KAREN RESENDIZ MD [facility]11-21-2024 Miscellaneous Notes* Telephone Encounter - Karen [...] 31, 2023 5:13 PM documented in this encounterTwin City Hospital11-20-2024 Telephone encounter Note * Telephone Encounter [...] : NO Protocols used: Blood Pressure - [id number]-PE [facility]11-20-2024 Miscellaneous Notes* Telephone Encounter - Mel [...] : NO Protocols used: Blood Pressure - [id number]-[id number] documented in this encounterTwin City Hospital11-20-2024 Telephone encounter Note * Telephone Encounter [...] Riggs RN December 31, 2023 5:13 PM [facility]09-30-2024 Telephone encounter Note* Telephone Encounter - Maryjane Joel LPN - 11/10/2023 4:29 PM EDT PATIENT NOTIFIED OF SAME. [facility]09-30-2024 Miscellaneous Notes* Telephone Encounter - Maryjane Joel LPN - 11/10/2023 4:29 PM EDT PATIENT [...] next scheduled appointment. Thanks. documented in this encounterTwin City Hospital09-30-2024 Telephone encounter Note * Telephone Encounter - Nelli Reyes APRN.CNP - 11/10/2023 4:10 PM EDT Rula. Please call patient and let them know recent labs looked stable, vitamin d is with in normallimits so she does not need to restart a supplement. No changes needed at this time and to keep next scheduled appointment. Thanks. 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 Nelli Reyes APRN-DARREN documented in this encounterTwin City Hospital07-05-2024 Telephone encounter Note * Telephone Encounter - Antonette Pink - 08/15/2023 3:56 PM EDT Patient said she got a letter from [facility] stating she doesn't have anymore refills on this medication and to request it from her pcp. [facility]07-05-2024 Miscellaneous Notes* Telephone Encounter - Antonette Pink - 08/15/2023 3:56 PM EDT Patient said she got a letter from [facility] stating she doesn't have anymore refills on [...] 15, 2023 3:56 PM documented in this encounterTwin City Hospital07-05-2024 Telephone encounter Note * Telephone Encounter [...] Antonette Cuellar August 15, 2023 3:56 PM [facility]03-27-2024 Instructions* Patient Instructions* Karen Resendiz MD - 05/07/2023 11:09 AM EDT Consider Claritin (loratadine) in AM and Zyrtec (cetirizine) or Benadryl (diphenhydramine) at bedtime. Try to get sleep time moved to bedtime instead of 9AM to 2PM. Consider Metamucil nightly to see if helps bulk up stool so not so watery. documented in this encounterTwin City Hospital03-27-2024 History of Present illness Narrative* Karen Resendiz MD - 05/07/2023 11:07 AM EDT This note was created using SpectraLinearriter. Subjective Kalina Rudd is a 82 year [...] went to [facility] but RX went to [facility]. Noted never tried the Colestipol--pill too large. [...] ointment Actually gets compounded RX 0.07% through [facility] from INK JET OPERATOR to use twice weekly Miscellaneous Medical Supply [place] probiotics--Yeast and Vaginal [...] sleep. Karen Resendiz MD documented in this encounterTwin City Hospital10-26-2023 Miscellaneous Notes* Telephone Encounter - Maddie Sahu APRN.CNS - 12/05/2022 3:27 PM EDT Which one is she doing? Refilled as previously ordered. It is the same quantity of pills per day. * Telephone Encounter - Irma Crews LPN - 12/05/2022 3:00 PM EDT Contacted pharmacy since a refill was sent in on 11/02/2022. The pharmacy affairs assistant states there was a clarification needed on [...] and advise. Shagufta Cuellar documented in this encounterTwin City Hospital09-23-2023 Instructions* Patient Instructions* Karen Resendiz MD [...] staying better at home. documented in this encounterTwin City Hospital09-23-2023 History of Present illness Narrative* Karen Resendiz MD - 11/02/2022 11:13 AM EDT This note was created using Gildter. Subjective Kalina Rudd is a 82 year [...] ointment Actually gets compounded RX 0.07% through [facility] from [employer] to use twice weekly triamcinolone acetonide (KENALOG) [...] the date of the service which included bcqu-aq-wftq patient care, completing clinical documentation, obtaining and/or reviewing separately obtained history, performing a medically appropriate examination, counseling and educating the patient/family/caregiver, and ordering medications, tests, or procedures. Karen Resendiz MD documented in this encounterTwin City Hospital09-12-2023 History of Present illness Narrative* Veronika [...] 22, 2022 9:06 AM documented in this encounterTwin City Hospital07-12-2023 History of Present illness Narrative* Soco Cummings MA - 08/21/2022 12:49 PM EDT POPULATION HEALTH NAVIGATION OUTREACH Action/FYI Spoke to pt to rescheduled missed wellness, pt doesn't want to see BUMPER OPERATOR- no openings for PCP, pt added [...] 21, 2022 12:49 PM documented in this encounterTwin City Hospital12-29-2022 Miscellaneous Notes* Telephone Encounter - Emily [...] message. Regina Rey LPN documented in this encounterTwin City Hospital12-27-2022 Miscellaneous Notes* Telephone Encounter - Regina Rey LPN - 02/05/2022 2:17 PM EST Pt was given the message below. She got the pills from [facility] and has not tried them but the [...] pharmacy and pay out of pocket with GoodRX voucher for $33 to $47 concepcion range for 90 pills. If she does not know how to get voucher online, can print RX and Voucher for her and send to pharmacy * Telephone Encounter - Gege Dutta RN - 01/17/2022 4:44 PM EST Patient calls and states that [facility] called her and stated that Colestipol would cost her $84. Patient asking if there is anything else can be prescribed due to cost? Please review and advise, Gege Dutta RN documented in this encounterTwin City Hospital12-06-2022 History of Present illness Narrative* Karen Resendiz MD - 01/15/2022 3:37 PM EST This note was created using SpectraLinearriter. Subjective Kalina Rudd is a 81 year [...] to be HCDPOAs. Does not have a latter-day home. Not sleeping at night. Sleeps in [...] indicated. Karen Resendiz MD documented in this encounterCleveland [id number] Miscellaneous Notes* Telephone Encounter - Xochitl Simeon [...] here? Xochitl Simeon LPN documented in this encounterTwin City Hospital11-09-2022 Miscellaneous Notes* Telephone Encounter - Manuela [...] KECIA CARDENAS Pharmacy Information [place] [address] Manuela Swain RN * Telephone Encounter - Kecia Cardenas APRN.CNP - 12/19/2021 12:52 PM EST Either one is fine. I filed the prescription. Kecia Cardenas APRN.DARREN * Telephone Encounter - Emilie Pineda RN [...] discontinue Emilie Pineda RN documented in this encounterTwin City Hospital11-03-2022 Miscellaneous Notes* Telephone Encounter - Xochitl Simeon LPN - 12/13/2021 9:48 AM EDT Spoke with pt and she is going to use the cream with a light dusting of cornstarch powder for now. Pt will contact our office with any further issues. Xochitl Simeon LPN * Telephone Encounter - Kecia Cardenas APRN.DARREN - 12/13/2021 9:41 AM EDT If she would like, she can use the Nystop powder instead of the cream. Or she can use a little cornstarch powder after using the cream to absorb any moisture. Please verify pharmacy. Kecia Cardenas APRN.DARREN * Telephone Encounter - Emilie Pineda RN [...] advise. Emilie Pineda RN documented in this encounterTwin City Hospital10-27-2022 Miscellaneous Notes* Telephone Encounter - Kym [...] back. Kym Celestin RN documented in this encounterTwin City Hospital10-21-2022 Miscellaneous Notes* Telephone Encounter - Emilie Pineda RN - 11/30/2021 8:20 AM EDT Rx faxed to [facility]. Emilie Pineda RN * Telephone Encounter - [...] minimal irritation and only on some days. [facility] compounding rx to AG to sign. Patient aware provider back in office tomorrow. Emilie Pineda RN documented in this encounterTwin City Hospital06-08-2022 Instructions* Patient Instructions* Karen Resendiz MD [...] products to prevent diarrhea. documented in this encounterTwin City Hospital06-08-2022 History of Present illness Narrative* Karen Resendiz MD - 07/18/2021 5:07 PM EDT This note was created using SpectraLinearriter. Subjective Kalina Rudd is a 81 year old female. HISTORY Kalina Rudd is a 81 year old lady here for yearly exam and follow up appointment. Has had bowel leakage and had seen Dr. Olea--told her no one in [place] does surgery for this. Passes gas frequently [...] BASIC Karen Resendiz MD documented in this encounterTwin City Hospital05-10-2022 Miscellaneous Notes* Telephone Encounter - Maddie Sahu APRN.FORMSTONE FITTER - 06/19/2021 1:41 PM EDT Rx sent. [...] advise, Gege Dutta RN documented in this encounterTwin City HospitalDischarge summary Author Chetan Nick [facility] Note Date/Time September 19, 2024 7: 28am [facility] Medical Records Department [address] [place] [address] Emergency Department Summary 09/19/24 MR#: [id number] Acct: [id number] Name: KALINA RUDD Rep #:[id number] : [...] be brought in for evaluation [facility] Medical History History of left heart catheterization [...] tablet 10 mg PO QDAY #30 tabs 02/19 Unknown Rx isosorbide mononitrate 30 mg 30 [...] Allergy Other Verified 09/19/24 03:54 Family History Father Hypertension Hx of CABG Surgical History History of cholecystectomy History of coronary artery stent placement Social History (Reviewed 09/19/24 @ 03:55 by Zi Harris Smoking Status: Never smoker alcohol intake: never [...] Cancelled 65.7 Lymph % (Auto) Cancelled 23.6 [place] % (Auto) Cancelled 7.5 Eos % (Auto) [...] Drop Cells Cancelled Ovalocytes Cancelled Stomatocytes Cancelled [place] Bodies Cancelled Serena Cells Cancelled Bite Cells [...] (Auto) Neut % (Auto) Lymph % (Auto) [place] % (Auto) Eos % (Auto) Baso % [...] Target Cells Tear Drop Cells Ovalocytes Stomatocytes [place] Bodies [place] Cells Bite Cells Crenated Cell Acanthocytes (Spur) [...] IMPRESSION: No acute chest findings Reading Location: [place] [address] Chest x-ray as interpreted by the emergency [...] mg PO QHS Primary Care Provider: Karen Resendiz Referrals: Karen Resendiz MD [Primary Care Provider] - Activity Restrictions/Additional Instructions: Your workup today reveals no sign of active cardiac damage. Please continue allof your home medications as directed by your doctor and follow-up with your family doctor as well as masonry installer for repeat evaluation. Return to the ER should you have any further concerns Print Language: Chilean Disposition Disposition: Home, Self Care What to do if you have Problems For any increased pain, shortness of breath, bleeding, nausea or vomiting, chestpain, or any unexpected problems, contact your Primary Care Provider. Call [facility] ([phone]) or report to the closest Emergency Room. Call 911 if necessary. 09/19/24727 <Electronically signed by Chetan Nick DO> Cosigner Signature (if applicable): CC: Dr. Karen Resendiz MD ~ Signed [facility] Work Phone: Evaluation note* Diagnosis Essential hypertension- Primary Unspecified essential hypertension Generalized anxiety disorder Recurrent major depressive disorder, in partial remission (HCC) HYPERCHOLESTEROLEMIA Pure hypercholesterolemia documented in this encounter [facility]* Diagnosis Fibromyalgia- Primary Mylagia and myositis, unspecified Generalized anxiety disorder Vitamin D deficiency Unspecified vitamin D deficiency Fecal smearing Recurrent major depressive disorder, in partial remission (HCC) Essential hypertension Unspecified essential hypertension Mixed hyperlipidemia documented in this encounter [facility]* Diagnosis Intertrigo- Primary Other specified erythematous condition documented in this encounter [facility]* Diagnosis Irritable bowel syndrome with diarrhea- Primary Irritable bowel syndrome S/P cholecystectomy Other acquired absence of organ Dermatitis Contact dermatitis and other eczema, due to unspecified cause Chronic vaginitis Vaginitis and vulvovaginitis, unspecified Recurrent major depressive disorder, in partial remission (HCC) Essential hypertension Unspecified essential hypertension Generalized anxiety disorder documented in this encounter [facility]* Diagnosis Dermatitis Contact dermatitis and other eczema, due to unspecified cause documented in this encounter [facility]* Diagnosis Pruritic dermatitis- Primary Unspecified pruritic disorder Essential hypertension Unspecified essential hypertension Generalized anxiety disorder Recurrent major depressive disorder, in partial remission (HCC) Vaginal burning Other specified symptom associated with female genital organs Vaginal atrophy Postmenopausal atrophic vaginitis Need for influenza vaccination Need for prophylactic vaccination and inoculation against influenza Vitamin D deficiency Unspecified vitamin D deficiency documented in this encounter [facility]* Diagnosis Essential hypertension- Primary Unspecified essential hypertension Dermatitis Contact dermatitis and other eczema, due to unspecified cause Recurrent major depressive disorder, in partial remission (HCC) Encounter for immunization Need for other specified prophylactic vaccination against single bacterial disease Encounter for long-term current use of medication [facility] Diagnosis Generalized anxiety disorder Recurrent major depressive disorder, in partial remission (HCC) [facility] Diagnosis Vitamin D deficiency- Primary Unspecified vitamin D deficiency Other insomnia Eczema, unspecified type Essential hypertension Unspecified essential hypertension Recurrent major depressive disorder, in partial remission (HCC) [facility] Diagnosis Fibromyalgia- Primary Mylagia and myositis, unspecified Essential hypertension Unspecified essential hypertension [facility] Diagnosis Essential hypertension- Primary Unspecified essential hypertension [facility] Diagnosis Encounter for medical assessment- Primary [facility] Diagnosis Essential hypertension- Primary Unspecified essential hypertension 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 S/P angioplasty with stent Other postprocedural status HYPERCHOLESTEROLEMIA Pure hypercholesterolemia Atopic dermatitis, unspecified type Fibromyalgia Mylagia and myositis, unspecified Gastro-esophageal reflux disease without esophagitis Esophageal reflux [facility] Diagnosis Acute cough- Primary Acute non-recurrent sinusitis, unspecified location Essential hypertension Unspecified essential hypertension History of ST elevation myocardial infarction (STEMI) Old myocardial infarction 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 (HCC) S/P angioplasty with stent Other postprocedural status Acute cough [facility] Diagnosis Acute cough [facility] Diagnosis Medicare annual wellness visit, subsequent- Primary Routine general medical examination at a health care facility Bilateral lower extremity edema Edema Generalized anxiety disorder Recurrent major depressive disorder, in partial remission Essential hypertension Unspecified essential hypertension Vitamin D deficiency Unspecified vitamin D deficiency S/P angioplasty with stent Other postprocedural status 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 Fibromyalgia Mylagia and myositis, unspecified Encounter for immunization Need for other specified prophylactic vaccination against single bacterial disease Encounter for long-term current use of medication Pain in right hip Pain in joint, pelvic region and thigh longterm (current) use of anticoagulants Long-term (current) use of anticoagulants Dermatitis, unspecified [facility] Diagnosis Acute bronchitis, unspecified organism- Primary Wheezing Acute cough Recent bereavement [facility] Diagnosis Onset Date Resolution Status Admit Date Aortic regurgitation acute September 07, 2024 8:06am History of coronary artery s tent placement acute September 07, 2024 8:06am HTN (hypertension) chronic August 112024 8:06am [facility] Work Phone: Evaluation note* Diagnosis Grief reaction- [...] thyroid function study documented in this encounter [facility] course Narrative No data available for this section [facility] Hospital Discharge instructionsAdditional Instructions Your workup today reveals no sign of active cardiac damage. Please continue all of your home medications as directed by your doctor and follow-up with your family doctor as well as masonry installer for repeat evaluation. 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 No September 19, 2024 3:55am Advance Directives No February 21, 2016 2:52pm Reason for Referral Specialty Diagnoses / Procedures Referred By Contac t Referred To Contact Diagnoses Eczema, unspecified type Nelli Reyes APRN.CNP [address] [place] [address] Referral ID Status Reason Start Date Expiration Date V isits Requested Visits Authorized [id number] Pending Review 11/07/2023 01/06/2024 1 1 Specialty Diagnoses / Procedures Referred By Contac t Referred To Contact Diagnoses Karen Bryan MD [address] [place] [address] Referral ID Status Reason Start Date Expiration Date V isits Requested Visits Authorized [id number] Pending Review 01/01/2024 03/01/2024 1 1 Summary [...] Chief Complaint Admit Date See clinical notes LJayjayL. (KR approved) Ju ly 2024 8:06am INT LAB September 07, 2024 9:01 am chest pain September 19, 2024 3: 53am OTHER FORMS OF DYSPNEA September 28, 2024 1:51pm Amb Documentation September 30, 2024 8: 04am Chief Complaint Admit Date See clinical notes Frank. (KR approved) Ju ly 2024 8:06am INT LAB September 07, 2024 9:01 am chest pain September 19, 2024 3: 53am OTHER FORMS OF DYSPNEA September 28, 2024 1:51pm Amb Documentation September 30, 2024 8: 04am SOB October 27, 2024 6:46am Shortness of breath October 27, 2024 6:11pm Amb Documentation October 28, 2024 9:18am Additional Source Comments Source Comments (unrecognize d section and content) In the event this informatio n is protected by the Federal Confidentiality of Alcohol and Drug Abuse Patient Records regulations: The Federal rules restrict any use of the information to criminally investigate or prosecute any alcohol or drug abuse patient.[facility] event this information is protected by the Federal Confidentiality of Alcohol and Drug Abuse Patient Records regulations: The Federal rules restrict any use of the information to criminally investigate or prosecute any alcohol or drug abuse patient.[facility] the event this information is protected by the Federal Confidentiality of Alcohol and Drug Abuse Patient Records regulations: The Federal rules restrict any use of the information to criminally investigate or prosecute any alcohol or drug abuse patient.[facility] the event this information is protected by the Federal Confidentiality of Alcohol and Drug Abuse Patient Records regulations: The Federal rules restrict any use of the information to criminally investigate or prosecute any alcohol or drug abuse patient.[facility] the event this information is protected by the Federal Confidentiality of Alcohol and Drug Abuse Patient Records regulations: The Federal rules restrict any use of the information to criminally investigate or prosecute any alcohol or drug abuse patient.[facility] the event this information is protected by the Federal Confidentiality of Alcohol and Drug Abuse Patient Records regulations: The Federal rules restrict any use of the information to criminally investigate or prosecute any alcohol or drug abuse patient.[facility] the event this information is protected by the Federal Confidentiality of Alcohol and Drug Abuse Patient Records regulations: The Federal rules restrict any use of the information to criminally investigate or prosecute any alcohol or drug abuse patient.[facility] the event this information is protected by the Federal Confidentiality of Alcohol and Drug Abuse Patient Records regulations: The Federal rules restrict any use of the information to criminally investigate or prosecute any alcohol or drug abuse patient.[facility] the event this information is protected by the Federal Confidentiality of Alcohol and Drug Abuse Patient Records regulations: The Federal rules restrict any use of the information to criminally investigate or prosecute any alcohol or drug abuse patient.[facility] the event this information is protected by the Federal Confidentiality of Alcohol and Drug Abuse Patient Records regulations: The Federal rules restrict any use of the information to criminally investigate or prosecute any alcohol or drug abuse patient.[facility] the event this information is protected by the Federal Confidentiality of Alcohol and Drug Abuse Patient Records regulations: The Federal rules restrict any use of the information to criminally investigate or prosecute any alcohol or drug abuse patient.[facility] the event this information is protected by the Federal Confidentiality of Alcohol and Drug Abuse Patient Records regulations: The Federal rules restrict any use of the information to criminally investigate or prosecute any alcohol or drug abuse patient.[facility] the event this information is protected by the Federal Confidentiality of Alcohol and Drug Abuse Patient Records regulations: The Federal rules restrict any use of the information to criminally investigate or prosecute any alcohol or drug abuse patient.[facility] the event this information is protected by the Federal Confidentiality of Alcohol and Drug Abuse Patient Records regulations: The Federal rules restrict any use of the information to criminally investigate or prosecute any alcohol or drug abuse patient.[facility] the event this information is protected by the Federal Confidentiality of Alcohol and Drug Abuse Patient Records regulations: The Federal rules restrict any use of the information to criminally investigate or prosecute any alcohol or drug abuse patient.[facility] the event this information is protected by the Federal Confidentiality of Alcohol and Drug Abuse Patient Records regulations: The Federal rules restrict any use of the information to criminally investigate or prosecute any alcohol or drug abuse patient.[facility] the event this information is protected by the Federal Confidentiality of Alcohol and Drug Abuse Patient Records regulations: The Federal rules restrict any use of the information to criminally investigate or prosecute any alcohol or drug abuse patient.[facility] the event this information is protected by the Federal Confidentiality of Alcohol and Drug Abuse Patient Records regulations: The Federal rules restrict any use of the information to criminally investigate or prosecute any alcohol or drug abuse patient.[facility] the event this information is protected by the Federal Confidentiality of Alcohol and Drug Abuse Patient Records regulations: The Federal rules restrict any use of the information to criminally investigate or prosecute any alcohol or drug abuse patient.[facility] the event this information is protected by the Federal Confidentiality of Alcohol and Drug Abuse Patient Records regulations: The Federal rules restrict any use of the information to criminally investigate or prosecute any alcohol or drug abuse patient.[facility] the event this information is protected by the Federal Confidentiality of Alcohol and Drug Abuse Patient Records regulations: The Federal rules restrict any use of the information to criminally investigate or prosecute any alcohol or drug abuse patient.[facility] the event this information is protected by the Federal Confidentiality of Alcohol and Drug Abuse Patient Records regulations: The Federal rules restrict any use of the information to criminally investigate or prosecute any alcohol or drug abuse patient.[facility] the event this information is protected by the Federal Confidentiality of Alcohol and Drug Abuse Patient Records regulations: The Federal rules restrict any use of the information to criminally investigate or prosecute any alcohol or drug abuse patient.[facility] the event this information is protected by the Federal Confidentiality of Alcohol and Drug Abuse Patient Records regulations: The Federal rules restrict any use of the information to criminally investigate or prosecute any alcohol or drug abuse patient.[facility] the event this information is protected by the Federal Confidentiality of Alcohol and Drug Abuse Patient Records regulations: The Federal rules restrict any use of the information to criminally investigate or prosecute any alcohol or drug abuse patient.[facility] the event this information is protected by the Federal Confidentiality of Alcohol and Drug Abuse Patient Records regulations: The Federal rules restrict any use of the information to criminally investigate or prosecute any alcohol or drug abuse patient.[facility] the event this information is protected by the Federal Confidentiality of Alcohol and Drug Abuse Patient Records regulations: The Federal rules restrict any use of the information to criminally investigate or prosecute any alcohol or drug abuse patient.[facility] the event this information is protected by the Federal Confidentiality of Alcohol and Drug Abuse Patient Records regulations: The Federal rules restrict any use of the information to criminally investigate or prosecute any alcohol or drug abuse patient.[facility] the event this information is protected by the Federal Confidentiality of Alcohol and Drug Abuse Patient Records regulations: The Federal rules restrict any use of the information to criminally investigate or prosecute any alcohol or drug abuse patient.[facility] the event this information is protected by the Federal Confidentiality of Alcohol and Drug Abuse Patient Records regulations: The Federal rules restrict any use of the information to criminally investigate or prosecute any alcohol or drug abuse patient.[facility] the event this information is protected by the Federal Confidentiality of Alcohol and Drug Abuse Patient Records regulations: The Federal rules restrict any use of the information to criminally investigate or prosecute any alcohol or drug abuse patient.[facility] the event this information is protected by the Federal Confidentiality of Alcohol and Drug Abuse Patient Records regulations: The Federal rules restrict any use of the information to criminally investigate or prosecute any alcohol or drug abuse patient.[facility] the event this information is protected by the Federal Confidentiality of Alcohol and Drug Abuse Patient Records regulations: The Federal rules restrict any use of the information to criminally investigate or prosecute any alcohol or drug abuse patient.[facility] the event this information is protected by the Federal Confidentiality of Alcohol and Drug Abuse Patient Records regulations: The Federal rules restrict any use of the information to criminally investigate or prosecute any alcohol or drug abuse patient.[facility] the event this information is protected by the Federal Confidentiality of Alcohol and Drug Abuse Patient Records regulations: The Federal rules restrict any use of the information to criminally investigate or prosecute any alcohol or drug abuse patient.[facility] the event this information is protected by the Federal Confidentiality of Alcohol and Drug Abuse Patient Records regulations: The Federal rules restrict any use of the information to criminally investigate or prosecute any alcohol or drug abuse patient.[facility] the event this information is protected by the Federal Confidentiality of Alcohol and Drug Abuse Patient Records regulations: The Federal rules restrict any use of the information to criminally investigate or prosecute any alcohol or drug abuse patient.[facility] the event this information is protected by the Federal Confidentiality of Alcohol and Drug Abuse Patient Records regulations: The Federal rules restrict any use of the information to criminally investigate or prosecute any alcohol or drug abuse patient.[facility] Reason for Visit (unrecogniz ed section [...] Onset Date Comments Transition Of Care 01/21/2024 Hospital [facility] 01/19/2024 - Initial outreach Reason [...] Reason Comments Recheck Follow up, review ro adler. depression Reason Onset Date Comments ACEverardo LUCIAN RN 09/20/2024 Chart review per payor request Care Teams (unrecognized sec tion and content) Roofing Plant Supervisor Relationship Specialty Start Date End Date Karen Resendiz MD [address] [place] [id number] PCP - General 12/01/01 Roofing Plant Supervisor Relationship Specialty Start Date End Date Karen Resendiz MD [address] [place] [address] PCP - General 12/01/01 Roofing Plant Supervisor Relationship Specialty Start Date End Date Karen Resendiz MD [address] [place] [id number] PCP - General 12/01/01 Roofing Plant Supervisor Relationship Specialty Start Date End Date Karen Resendiz MD [address] [place] [address] [place] [address] PCP - General 12/01/01 Roofing Plant Supervisor Relationship Specialty Start Date End Date Karen Resendiz MD [address] [place] [address] [place] [address] PCP - General 12/01/01 Roofing Plant Supervisor Relationship Specialty Start Date End Date Karen Resendiz MD [address] [place] [address] [place] [address] PCP - General 12/01/01 Roofing Plant Supervisor Relationship Specialty Start Date End Date Karen Resendiz MD [address] [place] [address] [place] [address] PCP - General 12/01/01 Roofing Plant Supervisor Relationship Specialty Start Date End Date Karen Resendiz MD [address] [place] [address] [place] [address] PCP - General 12/01/01 Roofing Plant Supervisor Relationship Specialty Start Date End Date Karen Resenidz MD [address] [place] [address] PCP - General 12/01/01 Roofing Plant Supervisor Relationship Specialty Start Date End Date Karen Resendiz MD [address] [place] [address] PCP - General 12/01/01 Roofing Plant Supervisor Relationship Specialty Start Date End Date Karen Resendiz MD [address] [place] [address] PCP - General 12/01/01 Roofing Plant Supervisor Relationship Specialty Start Date End Date Karen Resendiz MD [address] [place] [address] PCP - General 12/01/01 Roofing Plant Supervisor Relationship Specialty Start Date End Date Karen Resendiz MD [address] [place] [address] PCP - General 12/01/01 Roofing Plant Supervisor Relationship Specialty Start Date End Date Karen Resendiz MD [address] [place] [address] PCP - General 12/01/01 Roofing Plant Supervisor Relationship Specialty Start Date End Date Karen Resendiz MD [address] [place] [address] PCP - General 12/01/01 Roofing Plant Supervisor Relationship Specialty Start Date End Date Karen Resendiz MD [address] [place] [address] PCP - General 12/01/01 Roofing Plant Supervisor Relationship Specialty Start Date End Date Karen Resendiz MD [address] [place] [address] PCP - General 12/01/01 Roofing Plant Supervisor Relationship Specialty Start Date End Date Karen Resendiz MD [address] [place] [address] PCP - General 12/01/01 Maddie Sahu, MAKING MACHINE OPERATOR.FORMSTONE FITTER [address] [place] [address] Senior Account Director Internal Medicine 01/19/24 Nelli Reyes, MAKING MACHINE OPERATOR.ROUNDING MACHINE OPERATOR [address] [place] [address] Senior Account Director Internal Medicine 01/19/24 Korina Billy RN [address] [place] [address] Primary Care Brazing Machine Operator Helper 01/20/24 Roofing Plant Supervisor Relationship Specialty Start Date End Date Karen Resendiz MD [address] [place] [address] PCP - General 12/01/01 Maddie Sahu, MAKING MACHINE OPERATOR.FORMSTONE FITTER [address] [place] [address] Senior Account Director Internal Medicine 01/19/24 Nelli Reyes MAKING MACHINE OPERATOR.ROUNDING MACHINE OPERATOR [facility] [place] [address] Senior Account Director Internal Medicine 01/19/24 Korina Billy RN [address] [place], [place] [id number] Primary Care Brazing Machine Operator Helper 01/20/24 Roofing Plant Supervisor Relationship Specialty Start Date End Date Karen Resendiz MD [address] [place] [address] PCP - General 12/01/01 Maddie Sahu, MAKING MACHINE OPERATOR.FORMSTONE FITTER [address] [place] [address] Senior Account Director Internal Medicine 01/19/24 Nelli Reyes MAKING MACHINE OPERATOR.ROUNDING MACHINE OPERATOR [address] [place] [address] Senior Account Director Internal Medicine 01/19/24 Korina Billy, TOM [address] [place], [place] [id number] Primary Care Brazing Machine Operator Helper 01/20/24 02/18/24 Roofing Plant Supervisor Relationship Specialty Start Date End Date Karen Resendiz MD [address] [place] [address] PCP - General 12/01/01 Maddie Sahu, MAKING MACHINE OPERATOR.FORMSTONE FITTER [address] [place] [address] Senior Account Director Internal Medicine 01/19/24 Nelli Reyes MAKING MACHINE OPERATOR.ROUNDING MACHINE OPERATOR [address] [place] [address] Senior Account Director Internal Medicine 01/19/24 Roofing Plant Supervisor Relationship Specialty Start Date End Date Karen Resendiz MD [address] [place] [address] PCP - General 12/01/01 Maddie Sahu, MAKING MACHINE OPERATOR.FORMSTONE FITTER [address] [place] [address] Senior Account Director Internal Medicine 01/19/24 Nelli Reyes APRN.ROUNDING MACHINE OPERATOR [address] [place] [address] Senior Account Director Internal Medicine 01/19/24 Roofing Plant Supervisor Relationship Specialty Start Date End Date Karen Resendiz MD [address] [place] [address] PCP - General 12/01/01 Maddie Sahu APRN.FORMSTONE FITTER [address] [place] [address] Senior Account Director Internal Medicine 01/19/24 Nelli Reyes APRN.ROUNDING MACHINE OPERATOR [address] [place] [address] Senior Account Director Internal Medicine 01/19/24 Roofing Plant Supervisor Relationship Specialty Start Date End Date Karen Resendiz MD [address] [place] [address] PCP - General 12/01/01 Maddie Sahu APRN.FORMSTONE FITTER [address] [place] [address] Senior Account Director Internal Medicine 01/19/24 Nelli Reyes APRN.ROUNDING MACHINE OPERATOR [address] [place] [address] Senior Account Director Internal Medicine 05/04/24 Roofing Plant Supervisor Relationship Specialty Start Date End Date Karen Resendiz MD [address] [place], [place] [address] PCP - General 12/01/01 Nelli Reyes APRN.ROUNDING MACHINE OPERATOR [address] [place], [place] [address] Senior Account Director Internal Medicine 05/04/24 Maddie Sahu, MAKING MACHINE OPERATOR.FORMSTONE FITTER [address] [place], [place] [address] [facility] Internal Medicine 06/30/24 Team Status: Active Member [...] 2024 End: September 07, 2024 Joanne Apple BUMPER OPERATOR, BUMPER OPERATOR-C Attending Provider Active Start: September 07, 2024 End: September 07, 2024 Roofing Plant Supervisor Relationship Specialty Start Date End Date Karen Resendiz MD [address] [place], [place] [address] PCP - General 12/01/01 Nelli Reyes APRN.ROUNDING MACHINE OPERATOR [address] [place], [place] [address] [facility] Internal Medicine 05/04/24 Maddie Sahu, MAKING MACHINE OPERATOR.FORMSTONE FITTER [address] [place], [place] [id number] [facility] Internal Medicine 06/30/24 Team Status: Active Member Role/Relationship Status Dates Dr. Karen Resendiz MD Primary Care Provider Active Team Status: Inactive Member Role/Relationship Status Dates Dr. Karen Resendiz MD Primary Care Provider Active Start: September 07, 2024 End: September 07, 2024 Joanne Apple BUMPER OPERATOR, BUMPER OPERATOR-C Attending Provider Active Start: September 07, 2024 End: September 07, 2024 Joanne Apple BUMPER OPERATOR, BUMPER OPERATOR-C Referring Provider Active Start: September 07, 2024 End: September 07, 2024 Team Status: Inactive Member Role/Relationship Status Dates Dr. Karen Resendiz MD Primary Care Provider Active Start: September 19, 2024 End: September 19, 2024 Dr. Chetan Nick DO Emergency Provider Active Start: September 19, 2024 End: September 19, 2024 Roofing Plant Supervisor Relationship Specialty Start Date End Date Karen Resendiz MD [address], [place] [id number] PCP - General 12/01/01 Nelli Reyes MAKING MACHINE OPERATOR.ROUNDING MACHINE OPERATOR [address], [place] [id number] Senior Account Director Internal Medicine 05/04/24 Maddie Sahu, MAKING MACHINE OPERATOR.FORMSTONE FITTER [address], [place] [id number] [facility] Internal Medicine 06/30/24 Team Status: Inactive Member [...] 2024 End: September 28, 2024 Joanne Apple BUMPER OPERATOR, BUMPER OPERATOR-C Attending Provider Active Start: September 28, 2024 End: September 28, 2024 Joanne Apple BUMPER OPERATOR, BUMPER OPERATOR-C Referring Provider Active Start: September 28, [...] Active Start: September 30, 2024 Joanne Apple BUMPER OPERATOR, BUMPER OPERATOR-C Attending Provider Active Start: September 30, 2024 Team Status: Active Member Role/Relationship Status Dates Dr. Karen Resendiz MD Primary care physician Active Team Status: Inactive Member Role/Relationship Status Dates Dr. Karen Resendiz MD Primary care physician Active Start: September 07, 2024 End: September 07, 2024 Dr. Karen Resendiz MD Referring Provider Active Start: September 07, 2024 End: September 07, 2024 Joanne Apple BUMPER OPERATOR, BUMPER OPERATOR-C Attending physician Active Start: September 07, 2024 End: September 07, 2024 Team Status: Inactive Member Role/Relationship Status Dates Dr. Karen Resendiz MD Primary care physician Active Start: September 07, 2024 End: September 07, 2024 Joanne Apple BUMPER OPERATOR, BUMPER OPERATOR-C Attending physician Active Start: September 07, 2024 End: September 07, 2024 Joanne Apple BUMPER OPERATOR, BUMPER OPERATOR-C Referring Provider Active Start: September 07, 2024 End: September 07, 2024 Team Status: Inactive Member Role/Relationship Status Dates Dr. Karen Resendiz MD Primary care physician Active Start: September 19, 2024 End: September 19, 2024 Dr. Chetan Nick DO Attending physician Active Start: September 19, 2024 End: September 19, 2024 Dr. Chetan Nick DO Emergency Departme nt Physician Active Start: September 19, 2024 End: September 19, 2024 Team Status: Inactive Member Role/Relationship Status Dates Dr. Karen Resendiz MD Primary care physician Active Start: September 28, 2024 End: September 28, 2024 Joanne Apple BUMPER OPERATOR, BUMPER OPERATOR-C Attending physician Active Start: September 28, 2024 End: September 28, 2024 Joanne Apple BUMPER OPERATOR, BUMPER OPERATOR-C Referring Provider Active Start: September 28, 2024 End: September 28, 2024 Team Status: Active Member Role/Relationship Status Dates Dr. Karen Resendiz MD Primary care physician Active Start: September 28, 2024 Dr. Valdemar Kimble MD Attending physician Active Start: September 28, 2024 Team Status: Active Member Role/Relationship Status Dates Dr. Karen Resendiz MD Primary care physician Active Start: September 30, 2024 Joanne Apple BUMPER OPERATOR, BUMPER OPERATOR-C Attending physician Active Start: September 30, 2024 Team Status: Inactive Member Role/Relationship Status Dates Dr. Karen Resendiz MD Primary care physician Active Start: October 27, 2024 End: October 27, 2024 Joanne Apple BUMPER OPERATOR, BUMPER OPERATOR-C Attending physician Active Start: October 27, 2024 End: October 27, 2024 Joanne Apple BUMPER OPERATOR, BUMPER OPERATOR-C Referring Provider Active Start: October 27, 2024 End: October 27, 2024 Team Status: Active Member Role/Relationship Status Dates Dr. Karen Resendiz MD Primary care physician Active Start: October 27, 2024 Joanne Apple BUMPER OPERATOR, BUMPER OPERATOR-C Referring Provider Active Start: October 27, 2024 Joanne Apple NP, BUMPER OPERATOR-C Nurse Practitioner Active Start: October 27, 2024 Dr. Valdemar Kimble MD Attending physician Active Start: October 27, 2024 Team Status: Active Member Role/Relationship Status Dates Dr. Karen Resendiz MD Primary care physician Active Start: October 28, 2024 Joanne Apple BUMPER OPERATOR, BUMPER OPERATOR-C Attending physician Active Start: October 28, 2024 INFORMATION SOURCE (unrecogn ized section and content) DATE CREATED AUTHOR 01/30/2024 [facility] DATE CREATED AUTHOR AUTHOR'S ORGANIZ ATION 11/19/2024 [facility] DATE CREATED AUTHOR AUTHOR'S ORGANIZ ATION 12/22/2024 [facility] Goals (unrecognized section and content) Goals may [...] BE BASED ON THE PRIMARY CLINICAL RECORDS. [facility] provides no warranty or guarantee of the accuracy or completeness of information in this document.
== END | disposition home or self-care (01) ==
LOC: LAB 15:50
PROVIDERS: PCP Internal Medicine; Referring Provider Nurse Practitioner Gerontology; Visit Provider Nurse Practitioner Gerontology
DX: R06.09 Other forms of dyspnea (principal)
CPT/HCPCS: 36415; 80048; 83880; 85025